=== PATIENT | male | born 1955 | race African-American/Black ===

== ENCOUNTER 2018-11-01 14:05 | Inpatient (IN) | payer MEDICAID, OTHER ==
[~2018-11-01] VITALS: Ht 165.1 cm; Wt 75.9 kg
[2018-11-01] MEDS ORDERED: IPRATROPIUM BROM 0.5 MG/2.5ML INH SOL NEB ONE (14:45)
[2018-11-01] MEDS ORDERED: methylPREDNISolone SOD SUCC 125 MG/2 ML VL IV ONE (14:45)
[2018-11-01] MEDS ORDERED: ALBUTEROL SULF 2.5 MG/0.5ML(0.5%) NEB SOLN NEB ONE (14:45)
[2018-11-01 15:20] LABS: Albumin 3.6 g/dL (3.4-5.0); Anion Gap 3 (5-15); Blood Urea Nitrogen 10 mg/dL (7-18); Calcium 9.3 mg/dL (8.5-10.1); Carbon Dioxide 28 mmol/L (21-32); Chloride 113 mmol/L (98-107); Glucose 84 mg/dL (74-106); Potassium 4.7 mmol/L (3.5-5.1); Sodium 144 mmol/L (136-145)
[2018-11-01 15:21] LABS: Basophils # (auto) 0.1 uL; Basophils % (auto) 0.9 % (0.0-2.0); Eosinophils # (auto) 0.6 uL; Eosinophils % (auto) 7.5 % (0.0-7.0); Hematocrit 50.4 % (41.0-53.0); Hemoglobin 16.6 g/dL (13.5-17.5); Lymphocytes % (auto) 12.4 % (10.0-50.0); Mean Corpuscular Hemoglobin 28.5 pg (28.0-32.0); Mean Corpuscular Volume 86.3 fL (80.0-100.0); Monocytes # (auto) 0.6 uL; Monocytes % (auto) 7.6 % (0.0-12.0); Neutrophils # (auto) 5.7 uL; Neutrophils % (auto) 71.6 % (37.0-80.0); Nucleated Red Blood Cells % 0.1 %; Platelet Count (auto) 234 10^3/uL (140-450); Red Blood Cells 5.84 10^6/uL (4.5-5.90); Red Cell Distribution Width 16.2 % (11.8-14.3); White Blood Cell 7.9 10^3/uL (4.4-10.8)
[2018-11-01 15:25] LABS: Alanine Aminotransferase 24 U/L (16-61); Alkaline Phosphatase 118 U/L (45-117); Aspartate Aminotransferase 14 U/L (15-37); BUN/Creatinine Ratio 8.2; Bilirubin, Total 0.4 mg/dL (0.2-1.0); GFR African American 77 mL/min; GFR Non-African American 64 mL/min; Total Protein 7.5 g/dL (6.4-8.2)
[2018-11-01] MEDS ORDERED: cefTRIAXone 1GM/50ML D5W 50 ML IV ONE (15:30)
[2018-11-01 16:22] LABS: Lactic Acid w/Reflex 2.5 mmol/L (0.4-2.0)
[2018-11-01] MEDS ORDERED: ACETAMINOPHEN 325 MG TAB PO PRN (20:45)
[2018-11-01] MEDS ORDERED: TEMAZEPAM 15 MG CAP PO PRN (20:45)
[2018-11-01] MEDS ORDERED: HYDROcodone-ACET 5/325MG TAB PO PRN (20:45)
[2018-11-01] MEDS ORDERED: ONDANSETRON HCL 4 MG/2 ML VIAL IV PRN (20:45)
[2018-11-01] MEDS: FAMOTIDINE 20 MG TAB PO SCH (22:05)
[2018-11-01 22:18] LABS: Urine Bacteria NONE SEEN /hpf (None Seen); Urine Blood Negative /uL (Negative); Urine Specific Gravity 1.014 (1.001-1.035); Urine WBC <1 /hpf (0 - 3)
[2018-11-01 22:48] VITALS: BP 152/92
--- NOTE | 2018-11-01 22:48 | NUR ---
MS admit from ER [facility] admitted to tele/MS after SBAR received from Spike MUELLER. Patient oriented to Annabella Barraza RN primary RN, unit, room, bed, and unit policies regarding patient care and visiting hours. Patient weighed by bedscale and encouraged to call if they need something. All questions and concerns addressed, patient verbalized understanding. Note: Fall and safety precautions in place. Call light within reach.
--- NOTE | 2018-11-01 23:00 | NUR ---
IV insertion IV access obtained, via clean sterile technique by inserting 22 gauge catheter at left hand after second attempt. IV secured properly. No trauma to site. Patient tolerated well. NOTE: IV inserted by secondary RN IV removal IV DC'd with clean sterile technique, catheter fully intact. Pressure dressing applied to site. Patient tolerated well. NOTE: right hand 22g removed due to leaking
--- NOTE | 2018-11-01 23:05 | NUR ---
RT PAGED RT paged for breathing treatment
[2018-11-01] MEDS: ALBUTEROL SULF 2.5 MG/0.5ML(0.5%) NEB SOLN NEB SCH (23:28)
[2018-11-01] MEDS: IPRATROPIUM BROM 0.5 MG/2.5ML INH SOL NEB SCH (23:28)
[2018-11-02] MEDS ORDERED: PNEUMOCOCCAL VACC POLYS 25 MCG/0.5 ML VIAL IM ONE (01:45)
[2018-11-02 03:38] VITALS: BP 159/92
[2018-11-02 05:00] VITALS: BP 151/88
[2018-11-02 05:58] LABS: Basophils # (auto) 0 uL; Basophils % (auto) 0.2 % (0.0-2.0); Eosinophils # (auto) 0 uL; Eosinophils % (auto) 0.1 % (0.0-7.0); Hematocrit 50.8 % (41.0-53.0); Hemoglobin 16.6 g/dL (13.5-17.5); Lymphocytes # (auto) 0.9 uL; Lymphocytes % (auto) 8.4 % (10.0-50.0); Mean Corpuscular Hemoglobin 28.3 pg (28.0-32.0); Mean Corpuscular Hgb Conc. 32.6 g/dL (32.0-36.0); Mean Corpuscular Volume 86.9 fL (80.0-100.0); Monocytes # (auto) 0.2 uL; Monocytes % (auto) 1.6 % (0.0-12.0); Neutrophils # (auto) 9.5 uL; Neutrophils % (auto) 89.7 % (37.0-80.0); Nucleated Red Blood Cells % 0.3 %; Platelet Count (auto) 241 10^3/uL (140-450); Red Blood Cells 5.85 10^6/uL (4.5-5.90); Red Cell Distribution Width 16.3 % (11.8-14.3); White Blood Cell 10.6 10^3/uL (4.4-10.8)
[2018-11-02] MEDS: ALBUTEROL SULF 2.5 MG/0.5ML(0.5%) NEB SOLN NEB SCH ×4 (06:00→22:40)
[2018-11-02] MEDS: IPRATROPIUM BROM 0.5 MG/2.5ML INH SOL NEB SCH ×4 (06:00→22:40)
[2018-11-02 06:12] LABS: Calcium 8.8 mg/dL (8.5-10.1); Potassium 4.4 mmol/L (3.5-5.1)
[2018-11-02 06:14] LABS: BUN/Creatinine Ratio 11.3
[2018-11-02 09:00] VITALS: BP 149/88
[2018-11-02] MEDS ORDERED: LEVOFLOXACIN 500MG 100 ML IV SCH (10:00)
[2018-11-02] MEDS: FAMOTIDINE 20 MG TAB PO SCH ×2 (10:31→21:03)
[2018-11-02] MEDS: amLODIPine BESYLATE 5 MG TAB PO SCH (10:52)
[2018-11-02 13:00] VITALS: BP 141/77
[2018-11-02] MEDS ORDERED: cloNIDine HCL 0.1 MG TAB PO PRN (13:00)
[2018-11-02] MEDS ORDERED: AMLO5TAB15 PO (15:59)
[2018-11-02] MEDS ORDERED: OME20T PO (15:59)
[2018-11-02 17:00] VITALS: BP 157/97
--- NOTE | 2018-11-02 19:45 | NUR ---
Opening Shift Note Assumed care of patient, awake and alert x4. Patient denies pain at this time. Patient is complaining of shortness of breath at this time, oxygen saturation is 95% on 2L NC. RT paged for breathing treatment. Instructed on plan of care and to call for assistance as needed. Bed is locked in lowest position, side rails x 2 are up, call light is within reach, and bed alarm is on.
--- NOTE | 2018-11-02 19:48 | NUR ---
RT AT BEDSIDE RT at bedside administrating breathing treatment.
[2018-11-02 22:00] VITALS: BP 144/85
--- NOTE | 2018-11-02 22:38 | NUR ---
RT NOTE PT WAS SEEN BY RT FOR HHN TX. PT TOLERATES WELL VIA MASK. CONT ORDERED Addendum: 11/02/18 at 2346 by Avril Ramirez RT Amended: Links added.
--- NOTE | 2018-11-03 01:30 | NUR ---
Patient complaining of shortness of breath Patient reports that upon ambulating from the bathroom and back into bed he is feeling short of breath. Patient is on 2L NC, oxygen saturation is 98%. Lung sounds upon auscultation are clear upon inspiration and wheezing noted upon expiration. Educated patient to use urinal to prevent shortness of breath, patient verbalized understanding.
--- NOTE | 2018-11-03 01:31 | NUR ---
HOSPITALIST PAGED RE: BREATHING TREATMENT Hospitalist paged regarding breathing treatment. Patient is complaining of shortness of breath and does not have PRN breathing treatments. Awaiting call back.
--- NOTE | 2018-11-03 01:49 | NUR ---
REASSESSMENT Patient reports his shortness of breath is slightly subsiding. Patient is on 2L NC, oxygen saturation is 98%. Patient is laying in bed with head of the bed greater than 30 degrees. Bed is locked in lowest position, side rails x 2 are up, call light is within reach, and bed alarm is on.
--- NOTE | 2018-11-03 02:10 | NUR ---
MEDICAL RECORDS Form requesting medical records from [facility], as ordered by , faxed and placed in hard chart. Addendum: 11/03/18 at 0448 by NORBERTO HENNESSY RN RN Was notified by community facilitator that fax did not go through.
--- NOTE | 2018-11-03 02:20 | NUR ---
ORDERS FOR SHORTNESS OF BREATH TRANSITION SOCIAL WORKER Angelo Hodge placed order for Ventolin med nebulizer every 6 hours as needed for shortness of breath. Will carry out order as received.
--- NOTE | 2018-11-03 02:25 | NUR ---
ROUNDS Patient laying in bed, eyes closed, symmetrical chest rise and fall noted. Patient is on 2L NC. No S/S of distress/shortness of breath noted at this time. Bed is locked in lowest position, side rails x 2 are up, call light is within reach, and bed alarm is on.
[2018-11-03] MEDS ORDERED: ALBUTEROL SULF 2.5 MG/0.5ML(0.5%) NEB SOLN NEB PRN (02:30)
--- NOTE | 2018-11-03 03:45 | NUR ---
RT PAGED RT paged for PRN breathing treatment. Patient complaining of shortness of breath.
--- NOTE | 2018-11-03 04:05 | NUR ---
RT AT BEDSIDE RT at bedside administrating PRN breathing treatment.
[2018-11-03 05:24] VITALS: BP 138/87
[2018-11-03 06:09] LABS: Basophils # (auto) 0 uL; Basophils % (auto) 0.3 % (0.0-2.0); Eosinophils # (auto) 0.2 uL; Hematocrit 49.5 % (41.0-53.0); Hemoglobin 16.1 g/dL (13.5-17.5); Lymphocytes # (auto) 1.7 uL; Mean Corpuscular Hemoglobin 28.3 pg (28.0-32.0); Mean Corpuscular Hgb Conc. 32.5 g/dL (32.0-36.0); Mean Corpuscular Volume 87.1 fL (80.0-100.0); Monocytes # (auto) 0.9 uL; Monocytes % (auto) 8.2 % (0.0-12.0); Neutrophils # (auto) 7.6 uL; Neutrophils % (auto) 73.5 % (37.0-80.0); Nucleated Red Blood Cells % 0.1 %; Platelet Count (auto) 225 10^3/uL (140-450); Red Blood Cells 5.68 10^6/uL (4.5-5.90); Red Cell Distribution Width 16.6 % (11.8-14.3); White Blood Cell 10.4 10^3/uL (4.4-10.8)
[2018-11-03] MEDS: ALBUTEROL SULF 2.5 MG/0.5ML(0.5%) NEB SOLN NEB SCH ×5 (06:18→22:32)
[2018-11-03] MEDS: IPRATROPIUM BROM 0.5 MG/2.5ML INH SOL NEB SCH ×5 (06:18→22:31)
[2018-11-03 06:23] LABS: Calcium 8.8 mg/dL (8.5-10.1); Potassium 4.2 mmol/L (3.5-5.1)
[2018-11-03 06:29] LABS: Albumin 3.2 g/dL (3.4-5.0); BUN/Creatinine Ratio 14.9; Bilirubin, Total 0.3 mg/dL (0.2-1.0); Total Protein 6.7 g/dL (6.4-8.2)
--- NOTE | 2018-11-03 07:55 | NUR ---
On O2 at 2 LPM.
--- NOTE | 2018-11-03 07:55 | NUR ---
Patient in bed, awake, oriented x4, no acute distress noted, legally blind. Needs to obtain medical records from [facility] as ordered.
[2018-11-03 09:09] VITALS: BP 146/90
--- NOTE | 2018-11-03 10:22 | NUR ---
Called [facility] (P# [phone]) Medical Records. Spoke with Ladan. Ladan said send the request to obtain medical records to .
--- NOTE | 2018-11-03 10:25 | NUR ---
Request to obtain medical records sent to [facility] via .
[2018-11-03] MEDS: LEVOFLOXACIN 500 MG TAB PO SCH (11:36)
[2018-11-03] MEDS: FAMOTIDINE 20 MG TAB PO SCH ×2 (11:38→21:09)
[2018-11-03] MEDS: amLODIPine BESYLATE 5 MG TAB PO SCH (11:38)
--- NOTE | 2018-11-03 12:45 | NUR ---
Medical report for blood works from [facility] received via Fax, no medical report regarding Lobectomy. Medical report placed in the patient's chart.
[2018-11-03 12:47] VITALS: BP 140/85
[2018-11-03 16:20] VITALS: BP 137/84
--- NOTE | 2018-11-03 17:40 | NUR ---
Patient is ambulatory, went to the bathroom.
--- NOTE | 2018-11-03 17:50 | NUR ---
Dr. Pineda came over. made aware the [facility] only sent the Laboratory report. ordered to follow up on the Lobectomy report.
--- NOTE | 2018-11-03 18:05 | NUR ---
Paged the RT for patient's breathing treatment.
--- NOTE | 2018-11-03 18:10 | NUR ---
Request to obtain medical report on Lobectomy related to Lung Cancer sent again via Fax to [facility].
--- NOTE | 2018-11-03 18:14 | NUR ---
Patient had breathing treatment done.
--- NOTE | 2018-11-03 20:09 | NUR ---
Opening Shift Note Assumed care of patient, awake and alert. No S/S of distress/SOB or pain. Instructed on POC and to call for assist PRN, will continue to monitor for changes Q1hr and PRN.
[2018-11-03 22:00] VITALS: BP 130/79
[2018-11-03] MEDS: methylPREDNISolone SOD SUCC 40 MG/ML VL IV SCH (23:56)
[2018-11-04 05:00] VITALS: BP 143/86
[2018-11-04] MEDS: methylPREDNISolone SOD SUCC 40 MG/ML VL IV SCH ×4 (05:11→23:13)
--- NOTE | 2018-11-04 07:20 | NUR ---
Report given to David Darnell, patient is resting no respiratory distress.
[2018-11-04] MEDS: ALBUTEROL SULF 2.5 MG/0.5ML(0.5%) NEB SOLN NEB SCH ×5 (07:26→22:03)
[2018-11-04] MEDS: IPRATROPIUM BROM 0.5 MG/2.5ML INH SOL NEB SCH ×5 (07:26→22:03)
--- NOTE | 2018-11-04 07:40 | NUR ---
Patient in bed, awake, no acute distress noted. On O2 at 2 LPM.
[2018-11-04 09:00] VITALS: BP 144/91
--- NOTE | 2018-11-04 10:15 | NUR ---
Patient in bed, no acute distress noted. No complaints of pain.
[2018-11-04] MEDS: LEVOFLOXACIN 500 MG TAB PO SCH (10:18)
[2018-11-04] MEDS: FAMOTIDINE 20 MG TAB PO SCH ×2 (10:18→21:22)
[2018-11-04] MEDS: amLODIPine BESYLATE 5 MG TAB PO SCH (10:18)
[2018-11-04 13:00] VITALS: BP 145/93
[2018-11-04 17:00] VITALS: BP 137/87
--- NOTE | 2018-11-04 18:30 | NUR ---
Medical records from [facility] received via Fax. Placed in the patient's chart.
[2018-11-04] MEDS: BUDESONIDE (INHALATION) 0.5 MG/2 ML NEB NEB SCH (19:18)
--- NOTE | 2018-11-04 20:01 | NUR ---
Opening Shift Note Assumed care of patient, awake and alert. No S/S of distress/SOB or pain. Instructed on POC and to call for assist PRN, will continue to monitor for changes Q1hr and PRN.Patient said he felt getting better .
[2018-11-04 21:44] VITALS: BP 131/86
[2018-11-04 22:11] VITALS: BP 131/86
[2018-11-05] VITALS (7 sets, daily range): BP systolic 118–148; BP diastolic 72–86
--- NOTE | 2018-11-05 05:00 | NUR ---
IV insertion IV access obtained, via clean sterile technique by inserting 22gauge catheter at right hand after attempt. IV secured properly. No trauma to site. Patient tolerated well.
--- NOTE | 2018-11-05 05:00 | NUR ---
IV removal IV DC'd with sterile technique, catheter fully intact. Pressure dressing applied to site. Patient tolerated procedure well. NOTE: 3rd. day of the i.v.line.
[2018-11-05] MEDS: methylPREDNISolone SOD SUCC 40 MG/ML VL IV SCH ×2 (05:30→12:37)
[2018-11-05] MEDS: IPRATROPIUM BROM 0.5 MG/2.5ML INH SOL NEB SCH ×5 (06:15→22:20)
[2018-11-05] MEDS: ALBUTEROL SULF 2.5 MG/0.5ML(0.5%) NEB SOLN NEB SCH ×5 (06:15→22:20)
[2018-11-05] MEDS: BUDESONIDE (INHALATION) 0.5 MG/2 ML NEB NEB SCH ×2 (06:15→18:40)
--- NOTE | 2018-11-05 07:33 | NUR ---
Report given to David Darnell, patient is resting, no discomfort.
--- NOTE | 2018-11-05 07:50 | NUR ---
Patient in bed, awake, oriented x4, on O2 at 2 LPM. Periods that patient is removing his O2 via nasal cannula. Patient denies difficulty breathing.
[2018-11-05] MEDS: FAMOTIDINE 20 MG TAB PO SCH ×2 (09:39→21:39)
[2018-11-05] MEDS: LEVOFLOXACIN 500 MG TAB PO SCH ×2 (09:39→11:16)
[2018-11-05] MEDS: amLODIPine BESYLATE 5 MG TAB PO SCH (09:40)
--- NOTE | 2018-11-05 13:10 | NUR ---
Dr. Pineda made aware that [facility] sent another set of medical records via Fax but no report on Lobectomy/Lung CA.
--- NOTE | 2018-11-05 14:36 | NUR ---
Nutrition Assessment Notes please see attached link for complete assessment Est. Needs based on BW (74 kg): 8979-2009 kcal (23-25 kcal/kgBW), 74-81 gms pro (1.0-1.1 gms/kgBW). Will continue to monitor pertinent labs and reassess nutrient need prn Addendum: 11/05/18 at [address] Amended: Links added.
--- NOTE | 2018-11-05 20:05 | NUR ---
Opening Shift Note Assumed care of patient, awake and alert x4, sitting in bed in semi fowlers position. No S/S of distress/SOB on 2L NC or pain. Instructed on POC and to call for assistance PRN, will continue to monitor for changes Q1hr and PRN. Instructed o2 will be checked for o2 saturation on room air. Call light within reach, will be back to assess
--- NOTE | 2018-11-05 20:42 | NUR ---
02 Assessment Pt on room air for 30 mins, o2 94%, no sob or distress noted, patient resting comfortably, respirations even and unlabored.
--- NOTE | 2018-11-06 00:40 | NUR ---
Rounds Patient sleeping respirations even and unlabored on room air. No S/S of distress/SOB or pain. Will continue to monitor changes q1hr and PRN
[2018-11-06 04:46] VITALS: BP 125/60
[2018-11-06] MEDS: IPRATROPIUM BROM 0.5 MG/2.5ML INH SOL NEB SCH ×4 (07:12→18:00)
[2018-11-06] MEDS: ALBUTEROL SULF 2.5 MG/0.5ML(0.5%) NEB SOLN NEB SCH ×4 (07:12→18:00)
[2018-11-06 09:00] VITALS: BP 124/72
[2018-11-06] MEDS: LEVOFLOXACIN 500 MG TAB PO SCH (09:52)
[2018-11-06] MEDS: amLODIPine BESYLATE 5 MG TAB PO SCH (09:52)
[2018-11-06] MEDS: FAMOTIDINE 20 MG TAB PO SCH (09:52)
--- NOTE | 2018-11-06 09:55 | NUR ---
Patient sitting in chair, to get breathing treatment. RT at bedside.
[2018-11-06] MEDS: BUDESONIDE (INHALATION) 0.5 MG/2 ML NEB NEB SCH (09:57)
[2018-11-06] MEDS ORDERED: predniSONE 20 MG TAB PO SCH (10:00)
--- NOTE | 2018-11-06 11:50 | NUR ---
Patient sitting in bed, awake, on room air, no acute distress noted. Patient waiting for his lunch tray.
[2018-11-06 13:00] VITALS: BP 144/75
[2018-11-06 15:17] VITALS: BP 124/72
--- NOTE | 2018-11-06 15:25 | NUR ---
Patient requested to call his sister Erika to pick him up.
--- NOTE | 2018-11-06 15:26 | NUR ---
Informed the patient to wait for his discharge papers. Patient's belonging bag given to patient as he requested. Removed the IV line on the right hand, IV catheter intact, pressure dressing applied.
--- NOTE | 2018-11-06 15:30 | NUR ---
Called patient's sister Erika ([phone]) that patient is for discharge home today. Erika said she will picker packer the patient today.
--- NOTE | 2018-11-06 15:50 | NUR ---
Patient not in the room. [facility], went to Main Lobby, patient not found.
--- NOTE | 2018-11-06 16:08 | NUR ---
Called patient's sister Erika. Phone with voicemail not set up yet, unable to speak with patient's sister.
--- NOTE | 2018-11-06 16:09 | NUR ---
Patient left without signing and taking his discharge papers and prescription. Will inform Charge Nurse Cyndi.
--- NOTE | 2018-11-06 16:09 | NUR ---
Patient has no IV line when he left.
--- NOTE | 2018-11-06 16:15 | NUR ---
Informed Dr. Pineda that patient left without signing the discharge papers, without taking his discharge papers and prescription. Charge Nurse Cyndi made aware.
--- NOTE | 2018-11-06 16:20 | NUR ---
Family member called, made aware that patient left without signing his discharge papers and taking his discharge papers and prescription. Informed the family member that I will check the patient again if he goes back to the room, call put on hold. Patient not in the room. Family member hung up the phone already.
[2018-11-06 17:00] VITALS: BP 132/82
== END 2018-11-06 15:50 | disposition home or self-care (01) | DRG 720 ==
LOC: ER 14:19 → OVERFLOW 14:20 → WEST WING 23:05
PROVIDERS: ADMIT Nurse Practitioner; ATTEND Internal Medicine Pulmonary Disease
DX: A41.9 Sepsis, unspecified organism (principal); J96.20 Acute and chronic respiratory failure, unspecified whether with hypoxia or hypercapnia; J18.9 Pneumonia, unspecified organism; J44.0 Chronic obstructive pulmonary disease with (acute) lower respiratory infection; J45.901 Unspecified asthma with (acute) exacerbation; J44.1 Chronic obstructive pulmonary disease with (acute) exacerbation; J84.10 Pulmonary fibrosis, unspecified; J20.9 Acute bronchitis, unspecified; J98.11 Atelectasis; I12.9 Hypertensive chronic kidney disease with stage 1 through stage 4 chronic kidney disease, or unspecified chronic kidney disease; N18.2 Chronic kidney disease, stage 2 (mild); F17.210 Nicotine dependence, cigarettes, uncomplicated; Z85.118 Personal history of other malignant neoplasm of bronchus and lung; Z90.2 Acquired absence of lung [part of]
CPT/HCPCS: 36415; 71046; 71250; 80048; 80053; 81001; 83605; 83735; 83880; 84484; 85025; 87040; 87070; 87205; 93005; 94640; 94761; 96365; 96375; G0378; J0696; J1956

== ENCOUNTER 2019-01-25 00:12 | Emergency (ER) | payer MEDICAID ==
[~2019-01-25] VITALS: Ht 165.1 cm; Wt 83.5 kg
[~2019-01-25 00:12] MED LIST: AMLO5TAB15 PO; OME20T PO
[2019-01-25] MEDS ORDERED: ALBUTEROL SULF 2.5 MG/0.5ML(0.5%) NEB SOLN HHN STA (00:20)
[2019-01-25] MEDS ORDERED: IPRATROPIUM BROM 0.5 MG/2.5ML INH SOL NEB ONE (00:30)
[2019-01-25] MEDS ORDERED: methylPREDNISolone SOD SUCC 125 MG/2 ML VL IV ONE (00:30)
[2019-01-25 00:52] LABS: Basophils # (auto) 0.2 uL; Basophils % (auto) 1.4 % (0.0-2.0); Eosinophils # (auto) 0.6 uL; Eosinophils % (auto) 5.6 % (0.0-7.0); Hemoglobin 17.2 g/dL (13.5-17.5); Lymphocytes # (auto) 2.3 uL; Lymphocytes % (auto) 21.8 % (10.0-50.0); Mean Corpuscular Hemoglobin 28.6 pg (28.0-32.0); Mean Corpuscular Hgb Conc. 33.1 g/dL (32.0-36.0); Mean Corpuscular Volume 86.2 fL (80.0-100.0); Monocytes # (auto) 0.8 uL; Monocytes % (auto) 7.8 % (0.0-12.0); Neutrophils # (auto) 6.8 uL; Neutrophils % (auto) 63.4 % (37.0-80.0); Nucleated Red Blood Cells % 0.5 %; Platelet Count (auto) 222 10^3/uL (140-450); Red Blood Cells 6.03 10^6/uL (4.5-5.90); Red Cell Distribution Width 15.8 % (11.8-14.3); White Blood Cell 10.7 10^3/uL (4.4-10.8)
[2019-01-25 01:10] LABS: Albumin 3.7 g/dL (3.4-5.0); BUN/Creatinine Ratio 8.7; Calcium 8.9 mg/dL (8.5-10.1); Potassium 4.7 mmol/L (3.5-5.1)
[2019-01-25 01:12] LABS: Bilirubin, Total 0.5 mg/dL (0.2-1.0); Total Protein 7.8 g/dL (6.4-8.2)
[2019-01-25] MEDS ORDERED: cefTRIAXone 1GM/50ML D5W 50 ML IV ONE (02:15)
[2019-01-25] MEDS ORDERED: AZITHROMYCIN 500MG/ 250ML 250 ML IV ONE (02:15)
[2019-01-25 03:20] VITALS: BP 133/85
== END 2019-01-25 03:21 | disposition home or self-care (01) ==
LOC: ER 00:15
DX: J45.909 Unspecified asthma, uncomplicated (principal); I10 Essential (primary) hypertension; F17.210 Nicotine dependence, cigarettes, uncomplicated
CPT/HCPCS: 36415; 71045; 80053; 85025; 96365; 96368; 96375; 99284; J0456; J0696; J2930; J7611; J7644

== ENCOUNTER 2019-02-25 14:02 | Emergency (ER) | payer MEDICAID ==
[~2019-02-25] VITALS: Ht 165.1 cm; Wt 83.5 kg
[2019-02-25] MEDS ORDERED: IPRATROPIUM BROM 0.5 MG/2.5ML INH SOL NEB ONE ×2 (14:15→15:00)
[2019-02-25] MEDS ORDERED: ALBUTEROL SULF 2.5 MG/0.5ML(0.5%) NEB SOLN NEB ONE ×2 (14:15→15:00)
[2019-02-25] MEDS ORDERED: SODIUM CHLORIDE 0.9% 1,000 ML IV ONE (14:48)
[2019-02-25] MEDS ORDERED: AZITHROMYCIN 500MG/ 250ML 250 ML IV ONE (15:00)
[2019-02-25] MEDS ORDERED: methylPREDNISolone SOD SUCC 125 MG/2 ML VL IV ONE (15:00)
[2019-02-25 15:30] LABS: Basophils # (auto) 0.1 uL; Basophils % (auto) 0.7 % (0.0-2.0); Eosinophils # (auto) 0.6 uL; Mean Corpuscular Hgb Conc. 33.4 g/dL (32.0-36.0); Monocytes # (auto) 0.7 uL
[2019-02-25 15:32] LABS: Eosinophils % (auto) 6.5 % (0.0-7.0); Hematocrit 52.8 % (41.0-53.0); Hemoglobin 17.6 g/dL (13.5-17.5); Lymphocytes # (auto) 1.3 uL; Lymphocytes % (auto) 14.4 % (10.0-50.0); Mean Corpuscular Hemoglobin 28.6 pg (28.0-32.0); Mean Corpuscular Volume 85.6 fL (80.0-100.0); Monocytes % (auto) 8.1 % (0.0-12.0); Neutrophils # (auto) 6.2 uL; Neutrophils % (auto) 70.3 % (37.0-80.0); Nucleated Red Blood Cells % 0.6 %; Platelet Count (auto) 218 10^3/uL (140-450); Red Blood Cells 6.17 10^6/uL (4.5-5.90); Red Cell Distribution Width 15.9 % (11.8-14.3); White Blood Cell 8.8 10^3/uL (4.4-10.8)
[2019-02-25 16:00] VITALS: BP 149/87
[2019-02-25 16:23] LABS: Albumin 3.9 g/dL (3.4-5.0); Anion Gap 6 (5-15); Blood Urea Nitrogen 11 mg/dL (7-18); Calcium 9.7 mg/dL (8.5-10.1); Carbon Dioxide 27 mmol/L (21-32); Chloride 112 mmol/L (98-107); Glucose 72 mg/dL (74-106); Potassium 4.8 mmol/L (3.5-5.1); Sodium 145 mmol/L (136-145)
[2019-02-25 16:27] LABS: Alanine Aminotransferase 37 U/L (16-61); Alkaline Phosphatase 140 U/L (45-117); Aspartate Aminotransferase 17 U/L (15-37); BUN/Creatinine Ratio 8.1; Bilirubin, Total 0.4 mg/dL (0.2-1.0); GFR African American 69 mL/min; GFR Non-African American 57 mL/min; Total Protein 8.2 g/dL (6.4-8.2)
[2019-03-07] MEDS ORDERED: LISI10TA6 PO (00:09)
== END 2019-02-25 17:40 | disposition home or self-care (01) ==
LOC: ER 14:06
DX: J45.901 Unspecified asthma with (acute) exacerbation (principal); J84.10 Pulmonary fibrosis, unspecified; I12.9 Hypertensive chronic kidney disease with stage 1 through stage 4 chronic kidney disease, or unspecified chronic kidney disease; N18.2 Chronic kidney disease, stage 2 (mild); J44.9 Chronic obstructive pulmonary disease, unspecified; F17.210 Nicotine dependence, cigarettes, uncomplicated; K21.9 Gastro-esophageal reflux disease without esophagitis
CPT/HCPCS: 36415; 71046; 80053; 83735; 83880; 84443; 84484; 85025; 85379; 93005; 94640; 96365; 96366; 96375; 99284; J0456; J2930; J7030; J7611; J7644

== ENCOUNTER 2019-03-30 05:25 | Emergency (ER) | payer MEDICAID ==
[~2019-03-30] VITALS: Ht 165.1 cm; Wt 83.9 kg
[~2019-03-30 05:25] MED LIST changes: +LEVO750T2 PO; +NIC21P TOP
[2019-03-30] MEDS ORDERED: methylPREDNISolone SOD SUCC 125 MG/2 ML VL IV ONE (06:00)
[2019-03-30] MEDS ORDERED: ALBUTEROL SULF 2.5 MG/0.5ML(0.5%) NEB SOLN NEB ONE (06:00)
[2019-03-30] MEDS ORDERED: IPRATROPIUM BROM 0.5 MG/2.5ML INH SOL NEB ONE (06:00)
[2019-03-30 06:21] LABS: Basophils # (auto) 0 uL; Basophils % (auto) 0.5 % (0.0-2.0); Eosinophils # (auto) 0.3 uL; Eosinophils % (auto) 3.5 % (0.0-7.0); Hematocrit 52.2 % (41.0-53.0); Hemoglobin 17.2 g/dL (13.5-17.5); Lymphocytes % (auto) 11.4 % (10.0-50.0); Mean Corpuscular Hemoglobin 28.4 pg (28.0-32.0); Mean Corpuscular Hgb Conc. 32.9 g/dL (32.0-36.0); Mean Corpuscular Volume 86.4 fL (80.0-100.0); Monocytes # (auto) 0.6 uL; Monocytes % (auto) 6.7 % (0.0-12.0); Neutrophils # (auto) 6.7 uL; Neutrophils % (auto) 77.9 % (37.0-80.0); Platelet Count (auto) 216 10^3/uL (140-450); Red Blood Cells 6.04 10^6/uL (4.5-5.90); Red Cell Distribution Width 15.6 % (11.8-14.3); White Blood Cell 8.6 10^3/uL (4.4-10.8)
[2019-03-30 06:44] LABS: Chloride 112 mmol/L (98-107); Potassium 3.9 mmol/L (3.5-5.1); Sodium 142 mmol/L (136-145)
[2019-03-30] MEDS ORDERED: cloNIDine HCL 0.1 MG TAB PO ONE (06:45)
[2019-03-30] MEDS ORDERED: cefTRIAXone 1GM/50ML D5W 50 ML IV ONE (06:45)
[2019-03-30 06:53] LABS: Alanine Aminotransferase 49 U/L (16-61); Albumin 3.8 g/dL (3.4-5.0); Alkaline Phosphatase 145 U/L (45-117); Anion Gap 8 (5-15); Aspartate Aminotransferase 25 U/L (15-37); BUN/Creatinine Ratio 9.2; Bilirubin, Total 0.4 mg/dL (0.2-1.0); Blood Urea Nitrogen 11 mg/dL (7-18); Calcium 9.3 mg/dL (8.5-10.1); Carbon Dioxide 22 mmol/L (21-32); GFR African American 79 mL/min; GFR Non-African American 66 mL/min; Glucose 85 mg/dL (74-106); Magnesium 2.3 mg/dL (1.6-2.6); Total Protein 8.1 g/dL (6.4-8.2)
[2019-03-30 07:30] VITALS: BP 123/82
== END 2019-03-30 08:57 | disposition home or self-care (01) ==
LOC: ER 05:25
DX: J44.9 Chronic obstructive pulmonary disease, unspecified (principal); E11.22 Type 2 diabetes mellitus with diabetic chronic kidney disease; I12.9 Hypertensive chronic kidney disease with stage 1 through stage 4 chronic kidney disease, or unspecified chronic kidney disease; N18.2 Chronic kidney disease, stage 2 (mild); E78.5 Hyperlipidemia, unspecified; F17.210 Nicotine dependence, cigarettes, uncomplicated
CPT/HCPCS: 36415; 71045; 80053; 83735; 83880; 84484; 85025; 93005; 94640; 96365; 96375; 99285; J0696; J2930; J7611; J7644

== ENCOUNTER 2019-06-07 03:00 | Emergency (ER) | payer MEDICAID ==
[~2019-06-07] VITALS: Ht 165.1 cm; Wt 83.9 kg
[2019-06-07 03:05] VITALS: BP 199/97
[2019-06-07 03:40] LABS: Basophils # (auto) 0.1 10 ^3/uL (0-0.2); Basophils % (auto) 1.1 % (0.0-2.0); Eosinophils # (auto) 0.5 10 ^3/uL (0-0.8); Eosinophils % (auto) 4.4 % (0.0-7.0); Hematocrit 53.2 % (41.0-53.0); Hemoglobin 17.2 g/dL (13.5-17.5); Lymphocytes # (auto) 1.9 10 ^3/uL (0.4-5.4); Mean Corpuscular Hemoglobin 27.8 pg (28.0-32.0); Mean Corpuscular Hgb Conc. 32.4 g/dL (32.0-36.0); Mean Corpuscular Volume 85.9 fL (80.0-100.0); Monocytes # (auto) 0.8 10 ^3/uL (0-1.3); Neutrophils # (auto) 7.9 10 ^3/uL (1.6-8.6); Neutrophils % (auto) 70.5 % (37.0-80.0); Nucleated Red Blood Cells % 0.2 %; Platelet Count (auto) 278 10^3/uL (140-450); Red Blood Cells 6.19 10^6/uL (4.5-5.90); Red Cell Distribution Width 16.6 % (11.8-14.3); White Blood Cell 11.2 10^3/uL (4.4-10.8)
[2019-06-07] MEDS ORDERED: methylPREDNISolone SOD SUCC 125 MG/2 ML VL IV ONE (04:00)
[2019-06-07] MEDS ORDERED: IPRATROPIUM BROM 0.5 MG/2.5ML INH SOL NEB ONE (04:00)
[2019-06-07] MEDS ORDERED: ALBUTEROL SULF 2.5 MG/0.5ML(0.5%) NEB SOLN NEB ONE (04:00)
[2019-06-07 04:08] LABS: Alanine Aminotransferase 44 U/L (16-61); Albumin 3.8 g/dL (3.4-5.0); Anion Gap 5 (5-15); Aspartate Aminotransferase 34 U/L (15-37); BUN/Creatinine Ratio 6.9; Blood Urea Nitrogen 9 mg/dL (7-18); Calcium 8.7 mg/dL (8.5-10.1); Carbon Dioxide 29 mmol/L (21-32); Chloride 109 mmol/L (98-107); GFR African American 72 mL/min; GFR Non-African American 59 mL/min; Glucose 102 mg/dL (74-106); Potassium 4.3 mmol/L (3.5-5.1); Sodium 143 mmol/L (136-145)
[2019-06-07 04:13] LABS: Alkaline Phosphatase 127 U/L (45-117); Bilirubin, Total 0.3 mg/dL (0.2-1.0); Total Protein 7.8 g/dL (6.4-8.2)
[2019-06-07 05:14] LABS: INR 1.01 (0.9-1.15); Partial Thromboplastin Time 25.4 sec (23.64-32.05)
== END 2019-06-07 05:45 | disposition home or self-care (01) ==
LOC: EDBD 03:00 → ER 03:09
DX: J44.1 Chronic obstructive pulmonary disease with (acute) exacerbation (principal); E11.9 Type 2 diabetes mellitus without complications; E78.5 Hyperlipidemia, unspecified; I10 Essential (primary) hypertension; F17.210 Nicotine dependence, cigarettes, uncomplicated
CPT/HCPCS: 36415; 71045; 80053; 82728; 83605; 83880; 84484; 85025; 85610; 85730; 87040; 87070; 87804; 87880; 93005; 94640; 96374; 99285; J2930; J7644

== ENCOUNTER 2019-06-18 06:23 | Emergency (ER) | payer MEDICAID ==
[~2019-06-18] VITALS: Ht 170.2 cm; Wt 77.1 kg
[2019-06-18] MEDS ORDERED: SODIUM CHLORIDE 0.9% 1,000 ML IV ONE (06:44)
[2019-06-18 07:26] LABS: Basophils # (auto) 0.1 10 ^3/uL (0-0.2); Basophils % (auto) 1.2 % (0.0-2.0); Eosinophils # (auto) 0.5 10 ^3/uL (0-0.8); Eosinophils % (auto) 5.3 % (0.0-7.0); Hematocrit 48.5 % (41.0-53.0); Lymphocytes # (auto) 1.7 10 ^3/uL (0.4-5.4); Lymphocytes % (auto) 17.2 % (10.0-50.0); Mean Corpuscular Hemoglobin 28.3 pg (28.0-32.0); Mean Corpuscular Volume 85.7 fL (80.0-100.0); Monocytes # (auto) 0.8 10 ^3/uL (0-1.3); Monocytes % (auto) 8.1 % (0.0-12.0); Neutrophils # (auto) 6.6 10 ^3/uL (1.6-8.6); Neutrophils % (auto) 68.2 % (37.0-80.0); Platelet Count (auto) 224 10^3/uL (140-450); Red Blood Cells 5.66 10^6/uL (4.5-5.90); Red Cell Distribution Width 16.6 % (11.8-14.3); White Blood Cell 9.7 10^3/uL (4.4-10.8)
[2019-06-18 07:40] LABS: Albumin 3.4 g/dL (3.4-5.0); Anion Gap 5 (5-15); Blood Urea Nitrogen 10 mg/dL (7-18); Calcium 8.3 mg/dL (8.5-10.1); Carbon Dioxide 26 mmol/L (21-32); Chloride 112 mmol/L (98-107); Glucose 98 mg/dL (74-106); Magnesium 2.4 mg/dL (1.6-2.6); Potassium 4.1 mmol/L (3.5-5.1); Sodium 143 mmol/L (136-145)
[2019-06-18 07:41] LABS: INR 1.01 (0.9-1.15); Partial Thromboplastin Time 26.2 sec (23.64-32.05)
[2019-06-18 07:47] LABS: Alanine Aminotransferase 31 U/L (16-61); Alkaline Phosphatase 110 U/L (45-117); Aspartate Aminotransferase 20 U/L (15-37); BUN/Creatinine Ratio 7.8; Bilirubin, Total 0.4 mg/dL (0.2-1.0); GFR African American 73 mL/min; GFR Non-African American 60 mL/min
[2019-06-18 08:25] VITALS: BP 139/74
[2019-06-18] MEDS ORDERED: ALBUTEROL SULF 2.5 MG/0.5ML(0.5%) NEB SOLN NEB ONE (08:30)
[2019-06-18] MEDS ORDERED: IPRATROPIUM BROM 0.5 MG/2.5ML INH SOL NEB ONE (08:30)
== END 2019-06-18 10:32 | disposition home or self-care (01) ==
LOC: ER 06:23 → EDBD 06:23 → ER 10:32
DX: J44.1 Chronic obstructive pulmonary disease with (acute) exacerbation (principal); I10 Essential (primary) hypertension; J90 Pleural effusion, not elsewhere classified; F17.210 Nicotine dependence, cigarettes, uncomplicated; E78.5 Hyperlipidemia, unspecified; Z85.118 Personal history of other malignant neoplasm of bronchus and lung
CPT/HCPCS: 36415; 71046; 80053; 83735; 83880; 84443; 84484; 85025; 85379; 85610; 85730; 93005; 94640; 99285; J7030; J7644

== ENCOUNTER 2019-06-30 21:45 | Emergency (ER) | payer MEDICAID ==
[~2019-06-30] VITALS: Ht 165.1 cm; Wt 83.9 kg
[~2019-06-30 21:45] MED LIST changes: -LEVO750T2 PO; +LEVO750T8 PO
[2019-06-30 22:00] VITALS: BP 157/97
[2019-06-30 22:23] LABS: Basophils # (auto) 0.1 10 ^3/uL (0-0.2); Basophils % (auto) 0.7 % (0.0-2.0); Eosinophils # (auto) 0.8 10 ^3/uL (0-0.8); Eosinophils % (auto) 7.3 % (0.0-7.0); Hematocrit 51.4 % (41.0-53.0); Hemoglobin 16.5 g/dL (13.5-17.5); Lymphocytes # (auto) 1.8 10 ^3/uL (0.4-5.4); Lymphocytes % (auto) 16.1 % (10.0-50.0); Mean Corpuscular Hemoglobin 27.8 pg (28.0-32.0); Mean Corpuscular Hgb Conc. 32.1 g/dL (32.0-36.0); Mean Corpuscular Volume 86.6 fL (80.0-100.0); Monocytes # (auto) 0.8 10 ^3/uL (0-1.3); Monocytes % (auto) 7.3 % (0.0-12.0); Neutrophils # (auto) 7.6 10 ^3/uL (1.6-8.6); Neutrophils % (auto) 68.6 % (37.0-80.0); Nucleated Red Blood Cells % 0.1 %; Platelet Count (auto) 232 10^3/uL (140-450); Red Blood Cells 5.94 10^6/uL (4.5-5.90); Red Cell Distribution Width 16.9 % (11.8-14.3); White Blood Cell 11.1 10^3/uL (4.4-10.8)
[2019-06-30 22:36] LABS: INR 0.98 (0.9-1.15); Partial Thromboplastin Time 25.5 sec (23.64-32.05)
[2019-06-30 22:39] LABS: Albumin 3.5 g/dL (3.4-5.0); Anion Gap 6 (5-15); Blood Urea Nitrogen 11 mg/dL (7-18); Calcium 8.7 mg/dL (8.5-10.1); Carbon Dioxide 26 mmol/L (21-32); Chloride 109 mmol/L (98-107); Glucose 84 mg/dL (74-106); Potassium 4.1 mmol/L (3.5-5.1); Sodium 141 mmol/L (136-145)
[2019-06-30 22:44] LABS: Alanine Aminotransferase 32 U/L (16-61); Alkaline Phosphatase 110 U/L (45-117); Aspartate Aminotransferase 19 U/L (15-37); BUN/Creatinine Ratio 9.5; Bilirubin, Total 0.3 mg/dL (0.2-1.0); GFR African American 82 mL/min; GFR Non-African American 68 mL/min; Total Protein 7.1 g/dL (6.4-8.2)
[2019-06-30] MEDS ORDERED: IPRATROPIUM BROM 0.5 MG/2.5ML INH SOL NEB ONE (22:45)
[2019-06-30] MEDS ORDERED: methylPREDNISolone SOD SUCC 125 MG/2 ML VL IV ONE (22:45)
[2019-06-30] MEDS ORDERED: ALBUTEROL SULF 2.5 MG/0.5ML(0.5%) NEB SOLN NEB ONE (22:45)
== END 2019-07-01 02:48 | disposition home or self-care (01) ==
LOC: ER 21:45 → EDBD 21:45 → ER 07-01 02:48
DX: J44.1 Chronic obstructive pulmonary disease with (acute) exacerbation (principal); J06.9 Acute upper respiratory infection, unspecified
CPT/HCPCS: 36415; 71045; 80053; 84484; 85025; 85610; 85730; 93005; 94640; 96374; 99285; J2930; J7644

== ENCOUNTER 2019-10-02 11:43 | Emergency (ER) | payer MEDICAID ==
[~2019-10-02] VITALS: Ht 165.1 cm; Wt 66.7 kg
[2019-10-02 12:22] LABS: Basophils # (auto) 0.1 10 ^3/uL (0-0.2); Basophils % (auto) 1.4 % (0.0-2.0); Eosinophils # (auto) 0.4 10 ^3/uL (0-0.8); Eosinophils % (auto) 4.4 % (0.0-7.0); Hematocrit 52.7 % (41.0-53.0); Lymphocytes # (auto) 1.6 10 ^3/uL (0.4-5.4); Lymphocytes % (auto) 18.7 % (10.0-50.0); Mean Corpuscular Hemoglobin 28.4 pg (28.0-32.0); Mean Corpuscular Hgb Conc. 32.3 g/dL (32.0-36.0); Mean Corpuscular Volume 87.7 fL (80.0-100.0); Monocytes # (auto) 0.6 10 ^3/uL (0-1.3); Monocytes % (auto) 6.9 % (0.0-12.0); Neutrophils # (auto) 5.9 10 ^3/uL (1.6-8.6); Neutrophils % (auto) 68.6 % (37.0-80.0); Nucleated Red Blood Cells % 0.3 %; Platelet Count (auto) 261 10^3/uL (140-450); Red Cell Distribution Width 16.3 % (11.8-14.3); White Blood Cell 8.6 10^3/uL (4.4-10.8)
[2019-10-02 12:41] LABS: Albumin 3.6 g/dL (3.4-5.0); Anion Gap 3 (5-15); Blood Urea Nitrogen 5 mg/dL (7-18); Calcium 9.1 mg/dL (8.5-10.1); Carbon Dioxide 29 mmol/L (21-32); Chloride 109 mmol/L (98-107); Glucose 83 mg/dL (74-106); Lipase 148 U/L (73-393); Sodium 141 mmol/L (136-145)
[2019-10-02 12:50] LABS: Alanine Aminotransferase 20 U/L (16-61); Alkaline Phosphatase 124 U/L (45-117); Aspartate Aminotransferase 10 U/L (15-37); BUN/Creatinine Ratio 3.8; Bilirubin, Total 0.4 mg/dL (0.2-1.0); GFR African American 70 mL/min; GFR Non-African American 58 mL/min; Total Protein 7.4 g/dL (6.4-8.2)
[2019-10-02 14:41] VITALS: BP 104/72
== END 2019-10-02 14:43 | disposition home or self-care (01) ==
LOC: ER 11:43
DX: J44.9 Chronic obstructive pulmonary disease, unspecified (principal); I10 Essential (primary) hypertension; I25.2 Old myocardial infarction; F17.210 Nicotine dependence, cigarettes, uncomplicated; Z86.73 Personal history of transient ischemic attack (TIA), and cerebral infarction without residual deficits
CPT/HCPCS: 36415; 74176; 80053; 83690; 84484; 85025; 93005

== ENCOUNTER 2020-01-15 08:01 | Emergency (ER) | payer MEDICAID ==
[~2020-01-15] VITALS: Ht 175.3 cm; Wt 83.9 kg
[2020-01-15 11:00] VITALS: BP 132/76
== END 2020-01-15 11:45 | disposition home or self-care (01) ==
LOC: ER 08:01
DX: J45.41 Moderate persistent asthma with (acute) exacerbation (principal); F17.210 Nicotine dependence, cigarettes, uncomplicated; J44.9 Chronic obstructive pulmonary disease, unspecified; I10 Essential (primary) hypertension; I25.2 Old myocardial infarction; Z20.828 Contact with and (suspected) exposure to other viral communicable diseases; Z86.73 Personal history of transient ischemic attack (TIA), and cerebral infarction without residual deficits
CPT/HCPCS: 36415; 71045; 87426; 93005

== ENCOUNTER 2020-02-29 00:09 | Emergency (ER) | payer MEDICAID ==
[~2020-02-29] VITALS: Ht 165.1 cm; Wt 74.4 kg
[2020-02-29 01:52] LABS: Basophils # (auto) 0.1 10 ^3/uL (0-0.2); Basophils % (auto) 0.6 % (0.0-2.0); Eosinophils # (auto) 0.8 10 ^3/uL (0-0.8); Eosinophils % (auto) 5.9 % (0.0-7.0); Hematocrit 49.6 % (41.0-53.0); Hemoglobin 16.3 g/dL (13.5-17.5); Lymphocytes % (auto) 13.8 % (10.0-50.0); Mean Corpuscular Hemoglobin 28.4 pg (28.0-32.0); Mean Corpuscular Hgb Conc. 32.9 g/dL (32.0-36.0); Mean Corpuscular Volume 86.2 fL (80.0-100.0); Monocytes # (auto) 0.7 10 ^3/uL (0-1.3); Monocytes % (auto) 4.9 % (0.0-12.0); Neutrophils # (auto) 10.6 10 ^3/uL (1.6-8.6); Neutrophils % (auto) 74.8 % (37.0-80.0); Platelet Count (auto) 280 10^3/uL (140-450); Red Blood Cells 5.75 10^6/uL (4.5-5.90); Red Cell Distribution Width 15.6 % (11.8-14.3); White Blood Cell 14.1 10^3/uL (4.4-10.8)
[2020-02-29 02:00] VITALS: BP 153/91
[2020-02-29 02:10] LABS: Alanine Aminotransferase 45 U/L (16-61); Albumin 3.6 g/dL (3.4-5.0); Anion Gap 7 (5-15); Aspartate Aminotransferase 21 U/L (15-37); BUN/Creatinine Ratio 7.8; Blood Urea Nitrogen 9 mg/dL (7-18); Calcium 8.3 mg/dL (8.5-10.1); Carbon Dioxide 26 mmol/L (21-32); Chloride 109 mmol/L (98-107); GFR African American 82 mL/min; GFR Non-African American 67 mL/min; Glucose 110 mg/dL (74-106); Potassium 4.2 mmol/L (3.5-5.1); Sodium 142 mmol/L (136-145)
[2020-02-29 02:11] LABS: INR 0.98 (0.9-1.15); Partial Thromboplastin Time 26.7 sec (23.0-31.2)
[2020-02-29 02:15] LABS: Alkaline Phosphatase 114 U/L (45-117); Bilirubin, Total 0.2 mg/dL (0.2-1.0)
== END 2020-02-29 02:19 | disposition home or self-care (01) ==
LOC: EDBD 00:09 → ER 00:11
DX: J45.909 Unspecified asthma, uncomplicated (principal); I10 Essential (primary) hypertension; F17.210 Nicotine dependence, cigarettes, uncomplicated; I25.2 Old myocardial infarction; Z86.73 Personal history of transient ischemic attack (TIA), and cerebral infarction without residual deficits; Z76.0 Encounter for issue of repeat prescription; Z20.822 Contact with and (suspected) exposure to COVID-19
CPT/HCPCS: 36415; 71045; 80053; 83735; 83880; 84484; 85025; 85379; 85610; 85730; 87426; 93005

== ENCOUNTER 2020-03-10 11:03 | Emergency (ER) | payer MEDICAID ==
[~2020-03-10] VITALS: Ht 165.1 cm; Wt 83.9 kg
[~2020-03-10 11:03] MED LIST changes: +AMLO-489 PO; -AMLO5TAB15 PO
[2020-03-10 11:37] VITALS: BP 160/94
== END 2020-03-10 11:52 | disposition home or self-care (01) ==
LOC: EDBD 11:03 → ER 11:03
DX: J45.901 Unspecified asthma with (acute) exacerbation (principal); I10 Essential (primary) hypertension; I25.2 Old myocardial infarction; F17.210 Nicotine dependence, cigarettes, uncomplicated

== ENCOUNTER 2020-03-24 05:03 | Emergency (ER) | payer MEDICAID ==
[~2020-03-24] VITALS: Ht 165.1 cm; Wt 83.5 kg
[2020-03-24 06:15] LABS: Basophils # (auto) 0.1 10 ^3/uL (0-0.2); Basophils % (auto) 0.9 % (0.0-2.0); Eosinophils # (auto) 0.6 10 ^3/uL (0-0.8); Eosinophils % (auto) 7.8 % (0.0-7.0); Hematocrit 48.4 % (41.0-53.0); Hemoglobin 16.4 g/dL (13.5-17.5); Lymphocytes # (auto) 1.5 10 ^3/uL (0.4-5.4); Lymphocytes % (auto) 18.2 % (10.0-50.0); Mean Corpuscular Hgb Conc. 33.8 g/dL (32.0-36.0); Mean Corpuscular Volume 85.8 fL (80.0-100.0); Monocytes # (auto) 0.6 10 ^3/uL (0-1.3); Monocytes % (auto) 6.9 % (0.0-12.0); Neutrophils # (auto) 5.4 10 ^3/uL (1.6-8.6); Neutrophils % (auto) 66.2 % (37.0-80.0); Nucleated Red Blood Cells % 0.2 %; Platelet Count (auto) 244 10^3/uL (140-450); Red Blood Cells 5.64 10^6/uL (4.5-5.90); Red Cell Distribution Width 15.1 % (11.8-14.3); White Blood Cell 8.1 10^3/uL (4.4-10.8)
[2020-03-24 06:23] LABS: Albumin 3.5 g/dL (3.4-5.0); BUN/Creatinine Ratio 7.3; Calcium 8.9 mg/dL (8.5-10.1); INR 0.96 (0.9-1.15); Partial Thromboplastin Time 26.2 sec (23.0-31.2); Potassium 4.3 mmol/L (3.5-5.1)
[2020-03-24 06:25] LABS: Bilirubin, Total 0.2 mg/dL (0.2-1.0)
[2020-03-24 09:34] VITALS: BP 134/82
[2020-03-24] MEDS ORDERED: IPRATROPIUM BROM 0.5 MG/2.5ML INH SOL NEB ONE (10:30)
[2020-03-24] MEDS ORDERED: ALBUTEROL SULF 2.5 MG/0.5ML(0.5%) NEB SOLN NEB ONE (10:30)
[2020-03-24] MEDS ORDERED: methylPREDNISolone SOD SUCC 125 MG/2 ML VL IV ONE (10:30)
== END 2020-03-24 11:28 | disposition home or self-care (01) ==
LOC: ER 05:03 → EDBD 05:03 → EDUNIT# 05:03 → ER 11:28
DX: J45.901 Unspecified asthma with (acute) exacerbation (principal); I10 Essential (primary) hypertension; I25.2 Old myocardial infarction; F17.210 Nicotine dependence, cigarettes, uncomplicated; Z86.73 Personal history of transient ischemic attack (TIA), and cerebral infarction without residual deficits; Z20.822 Contact with and (suspected) exposure to COVID-19
CPT/HCPCS: 36415; 71045; 80053; 85025; 85610; 85730; 87426; 93005; 94640; 96374; 99285; J2930; J7644; U0003

== ENCOUNTER 2020-04-09 01:40 | Emergency (ER) | payer MEDICAID ==
[~2020-04-09] VITALS: Ht 165.1 cm; Wt 74.8 kg
[2020-04-09 02:14] VITALS: BP 159/96
[2020-04-09 02:15] LABS: Basophils # (auto) 0.1 10 ^3/uL (0-0.2); Basophils % (auto) 0.6 % (0.0-2.0); Eosinophils # (auto) 0.6 10 ^3/uL (0-0.8); Eosinophils % (auto) 4.4 % (0.0-7.0); Hematocrit 49.7 % (41.0-53.0); Hemoglobin 16.4 g/dL (13.5-17.5); Lymphocytes # (auto) 1.6 10 ^3/uL (0.4-5.4); Mean Corpuscular Hemoglobin 28.4 pg (28.0-32.0); Mean Corpuscular Volume 85.8 fL (80.0-100.0); Monocytes # (auto) 0.9 10 ^3/uL (0-1.3); Monocytes % (auto) 6.7 % (0.0-12.0); Neutrophils # (auto) 9.6 10 ^3/uL (1.6-8.6); Neutrophils % (auto) 75.3 % (37.0-80.0); Nucleated Red Blood Cells % 0.1 %; Platelet Count (auto) 244 10^3/uL (140-450); Red Blood Cells 5.79 10^6/uL (4.5-5.90); Red Cell Distribution Width 15.8 % (11.8-14.3); White Blood Cell 12.7 10^3/uL (4.4-10.8)
[2020-04-09 02:28] LABS: INR 0.98 (0.9-1.15); Partial Thromboplastin Time 25.6 sec (23.0-31.2)
[2020-04-09 02:34] LABS: Albumin 3.5 g/dL (3.4-5.0); Anion Gap 3 (5-15); Blood Urea Nitrogen 10 mg/dL (7-18); Calcium 8.6 mg/dL (8.5-10.1); Carbon Dioxide 29 mmol/L (21-32); Chloride 111 mmol/L (98-107); Glucose 89 mg/dL (74-106); Magnesium 2.2 mg/dL (1.6-2.6); Potassium 4.7 mmol/L (3.5-5.1); Sodium 143 mmol/L (136-145)
[2020-04-09 02:40] LABS: Alanine Aminotransferase 38 U/L (16-61); Alkaline Phosphatase 124 U/L (45-117); Aspartate Aminotransferase 18 U/L (15-37); BUN/Creatinine Ratio 7.8; Bilirubin, Total 0.3 mg/dL (0.2-1.0); GFR African American 73 mL/min; GFR Non-African American 60 mL/min; Total Protein 7.4 g/dL (6.4-8.2)
== END 2020-04-09 04:07 | disposition home or self-care (01) ==
LOC: EDBD 01:40 → ER 01:42
DX: J45.901 Unspecified asthma with (acute) exacerbation (principal); J84.10 Pulmonary fibrosis, unspecified; J44.9 Chronic obstructive pulmonary disease, unspecified; I10 Essential (primary) hypertension; I25.2 Old myocardial infarction; F17.210 Nicotine dependence, cigarettes, uncomplicated; Z20.822 Contact with and (suspected) exposure to COVID-19; Z86.73 Personal history of transient ischemic attack (TIA), and cerebral infarction without residual deficits
CPT/HCPCS: 36415; 71045; 80053; 83735; 83880; 84484; 85025; 85610; 85730; 87426; 93005

== ENCOUNTER 2020-05-09 02:09 | Inpatient (IN) | payer MEDICAID ==
[~2020-05-09] VITALS: Ht 165.1 cm; Wt 75.9 kg
[2020-05-09] MEDS ORDERED: DexAMETHasone SOD PHOS 10MG/1ML VIAL INJ IV ONE (03:45)
[2020-05-09 03:54] LABS: Basophils # (auto) 0.1 10 ^3/uL (0-0.2); Basophils % (auto) 0.6 % (0.0-2.0); Eosinophils # (auto) 0.7 10 ^3/uL (0-0.8); Eosinophils % (auto) 6.5 % (0.0-7.0); Hematocrit 47.8 % (41.0-53.0); Hemoglobin 15.8 g/dL (13.5-17.5); Lymphocytes # (auto) 1.4 10 ^3/uL (0.4-5.4); Lymphocytes % (auto) 13.5 % (10.0-50.0); Mean Corpuscular Hemoglobin 28.1 pg (28.0-32.0); Mean Corpuscular Volume 85.4 fL (80.0-100.0); Monocytes # (auto) 0.7 10 ^3/uL (0-1.3); Monocytes % (auto) 6.8 % (0.0-12.0); Neutrophils # (auto) 7.6 10 ^3/uL (1.6-8.6); Neutrophils % (auto) 72.6 % (37.0-80.0); Nucleated Red Blood Cells % 0.1 %; Platelet Count (auto) 269 10^3/uL (140-450); Red Blood Cells 5.61 10^6/uL (4.5-5.90); Red Cell Distribution Width 15.4 % (11.8-14.3); White Blood Cell 10.5 10^3/uL (4.4-10.8)
[2020-05-09 04:11] LABS: Albumin 3.4 g/dL (3.4-5.0); Anion Gap 3 (5-15); Calcium 8.6 mg/dL (8.5-10.1); Carbon Dioxide 30 mmol/L (21-32); Chloride 110 mmol/L (98-107); Potassium 4.5 mmol/L (3.5-5.1); Sodium 143 mmol/L (136-145)
[2020-05-09 04:19] LABS: Alanine Aminotransferase 37 U/L (16-61); Alkaline Phosphatase 114 U/L (45-117); Aspartate Aminotransferase 25 U/L (15-37); BUN/Creatinine Ratio 9.6; Bilirubin, Total 0.3 mg/dL (0.2-1.0); Blood Urea Nitrogen 11 mg/dL (7-18); GFR African American 83 mL/min; GFR Non-African American 69 mL/min; Glucose 91 mg/dL (74-106); Magnesium 2.2 mg/dL (1.6-2.6); Total Protein 6.9 g/dL (6.4-8.2)
[2020-05-09 04:21] LABS: INR 0.96 (0.9-1.15); Partial Thromboplastin Time 26.2 sec (23.0-31.2)
[2020-05-09] MEDS ORDERED: MORPHINE SULF INJ 2 MG/ML SYRINGE 1ML IV PRN (06:45)
[2020-05-09] MEDS ORDERED: ACETAMINOPHEN 325 MG TAB PO PRN (06:45)
[2020-05-09] MEDS ORDERED: NITROGLYCERIN 0.4 MG SL TAB SL PRN (06:45)
[2020-05-09] MEDS ORDERED: ONDANSETRON HCL 4 MG/2 ML VIAL IV PRN (06:45)
[2020-05-09 07:45] VITALS: BP 116/69
[2020-05-09] MEDS: levoFLOXacin 500MG 100 ML IV SCH (09:08)
[2020-05-09] MEDS: amLODIPine BESYLATE 5 MG TAB PO SCH (09:08)
[2020-05-09] MEDS: FAMOTIDINE 20 MG TAB PO SCH ×2 (09:10→22:05)
[2020-05-09] MEDS: ENOXAPARIN SOD 40 MG/0.4 ML SYRINGE SC SCH (09:10)
[2020-05-09 12:51] VITALS: BP 139/82
[2020-05-09 16:43] VITALS: BP 133/73
[2020-05-09] MEDS: IPRATROPIUM BROM 0.5 MG/2.5ML INH SOL NEB PRN (19:39)
[2020-05-09] MEDS: ALBUTEROL SULF 2.5 MG/0.5ML(0.5%) NEB SOLN NEB PRN (19:39)
[2020-05-09 20:00] VITALS: BP 127/74
[2020-05-09] MEDS: TEMAZEPAM 15 MG CAP PO PRN (22:05)
[2020-05-09 22:27] VITALS: BP 147/76
[2020-05-10] MEDS: ALBUTEROL SULF 2.5 MG/0.5ML(0.5%) NEB SOLN NEB PRN ×2 (01:26→07:44)
[2020-05-10] MEDS: IPRATROPIUM BROM 0.5 MG/2.5ML INH SOL NEB PRN ×2 (01:26→07:43)
[2020-05-10 05:30] VITALS: BP 123/72
[2020-05-10 07:46] LABS: Basophils # (auto) 0.1 10 ^3/uL (0-0.2); Basophils % (auto) 0.7 % (0.0-2.0); Eosinophils # (auto) 0.2 10 ^3/uL (0-0.8); Hematocrit 46.2 % (41.0-53.0); Hemoglobin 15.3 g/dL (13.5-17.5); Lymphocytes # (auto) 1.7 10 ^3/uL (0.4-5.4); Lymphocytes % (auto) 15.1 % (10.0-50.0); Mean Corpuscular Hemoglobin 28.3 pg (28.0-32.0); Mean Corpuscular Hgb Conc. 33.2 g/dL (32.0-36.0); Mean Corpuscular Volume 85.2 fL (80.0-100.0); Monocytes # (auto) 0.9 10 ^3/uL (0-1.3); Monocytes % (auto) 8.3 % (0.0-12.0); Neutrophils # (auto) 8.1 10 ^3/uL (1.6-8.6); Neutrophils % (auto) 73.9 % (37.0-80.0); Nucleated Red Blood Cells % 0.1 %; Platelet Count (auto) 242 10^3/uL (140-450); Red Blood Cells 5.42 10^6/uL (4.5-5.90); Red Cell Distribution Width 15.4 % (11.8-14.3)
[2020-05-10 08:01] LABS: Calcium 8.9 mg/dL (8.5-10.1); Potassium 3.9 mmol/L (3.5-5.1)
[2020-05-10 09:00] VITALS: BP 118/67
[2020-05-10] MEDS: predniSONE 20 MG TAB PO SCH (10:32)
[2020-05-10] MEDS: ENOXAPARIN SOD 40 MG/0.4 ML SYRINGE SC SCH (10:32)
[2020-05-10] MEDS: FAMOTIDINE 20 MG TAB PO SCH ×2 (10:32→21:40)
[2020-05-10] MEDS: levoFLOXacin 500MG 100 ML IV SCH (10:33)
[2020-05-10] MEDS: amLODIPine BESYLATE 5 MG TAB PO SCH (10:34)
[2020-05-10 13:00] VITALS: BP 130/71
[2020-05-10 17:00] VITALS: BP 117/67
[2020-05-10 22:00] VITALS: BP 141/74
[2020-05-10] MEDS: TEMAZEPAM 15 MG CAP PO PRN (23:22)
[2020-05-11 05:00] VITALS: BP 148/81
[2020-05-11 07:33] LABS: Basophils # (auto) 0.1 10 ^3/uL (0-0.2); Basophils % (auto) 0.6 % (0.0-2.0); Eosinophils # (auto) 0.1 10 ^3/uL (0-0.8); Eosinophils % (auto) 0.9 % (0.0-7.0); Hematocrit 48.2 % (41.0-53.0); Hemoglobin 15.8 g/dL (13.5-17.5); Lymphocytes % (auto) 16.4 % (10.0-50.0); Mean Corpuscular Hemoglobin 28.2 pg (28.0-32.0); Mean Corpuscular Hgb Conc. 32.8 g/dL (32.0-36.0); Mean Corpuscular Volume 85.8 fL (80.0-100.0); Monocytes # (auto) 0.9 10 ^3/uL (0-1.3); Monocytes % (auto) 7.3 % (0.0-12.0); Neutrophils # (auto) 9.1 10 ^3/uL (1.6-8.6); Neutrophils % (auto) 74.8 % (37.0-80.0); Nucleated Red Blood Cells % 0.1 %; Platelet Count (auto) 258 10^3/uL (140-450); Red Blood Cells 5.62 10^6/uL (4.5-5.90); Red Cell Distribution Width 15.5 % (11.8-14.3); White Blood Cell 12.2 10^3/uL (4.4-10.8)
[2020-05-11] MEDS: IPRATROPIUM BROM 0.5 MG/2.5ML INH SOL NEB PRN (07:33)
[2020-05-11] MEDS: ALBUTEROL SULF 2.5 MG/0.5ML(0.5%) NEB SOLN NEB PRN (07:33)
[2020-05-11 07:46] LABS: Calcium 9.2 mg/dL (8.5-10.1); Potassium 4.6 mmol/L (3.5-5.1)
[2020-05-11 07:47] LABS: BUN/Creatinine Ratio 13.6
[2020-05-11 08:40] VITALS: BP 146/83
[2020-05-11] MEDS: predniSONE 20 MG TAB PO SCH (10:32)
[2020-05-11] MEDS: ENOXAPARIN SOD 40 MG/0.4 ML SYRINGE SC SCH (10:32)
[2020-05-11] MEDS: levoFLOXacin 500MG 100 ML IV SCH (10:32)
[2020-05-11] MEDS: FAMOTIDINE 20 MG TAB PO SCH ×2 (10:32→21:40)
[2020-05-11] MEDS: amLODIPine BESYLATE 5 MG TAB PO SCH (10:33)
[2020-05-11 12:15] VITALS: BP 146/88
[2020-05-11 17:07] VITALS: BP 141/87
[2020-05-11 22:00] VITALS: BP 123/58
[2020-05-12 05:00] VITALS: BP 114/70
[2020-05-12 09:20] VITALS: BP 143/73
[2020-05-12] MEDS: levoFLOXacin 500MG 100 ML IV SCH (10:12)
[2020-05-12] MEDS: predniSONE 20 MG TAB PO SCH (10:12)
[2020-05-12] MEDS: amLODIPine BESYLATE 5 MG TAB PO SCH (10:13)
[2020-05-12] MEDS: FAMOTIDINE 20 MG TAB PO SCH ×2 (10:13→21:25)
[2020-05-12] MEDS: ENOXAPARIN SOD 40 MG/0.4 ML SYRINGE SC SCH (10:13)
[2020-05-12 10:30] VITALS: BP 143/71
[2020-05-12 13:00] VITALS: BP 134/74
[2020-05-12 16:56] VITALS: BP 145/80
[2020-05-12 22:00] VITALS: BP 129/77
[2020-05-13 05:00] VITALS: BP 136/69
[2020-05-13 08:54] VITALS: BP 139/81
[2020-05-13] MEDS: levoFLOXacin 500MG 100 ML IV SCH (09:37)
[2020-05-13] MEDS: predniSONE 20 MG TAB PO SCH (09:37)
[2020-05-13] MEDS: amLODIPine BESYLATE 5 MG TAB PO SCH (09:38)
[2020-05-13] MEDS: FAMOTIDINE 20 MG TAB PO SCH (09:38)
[2020-05-13] MEDS: ENOXAPARIN SOD 40 MG/0.4 ML SYRINGE SC SCH (09:39)
[2020-05-13] MEDS ORDERED: AMOX500T86 PO (10:30)
[2020-05-13] MEDS ORDERED: TIOTCAP IN (10:30)
[2020-05-13] MEDS ORDERED: ALBUAER3 IN (10:30)
[2020-05-13] MEDS ORDERED: PRED20TA2 PO (10:30)
[2020-05-13 13:00] VITALS: BP 145/77
== END 2020-05-13 14:25 | disposition home or self-care (01) | DRG 139 ==
LOC: EDBD 02:09 → ER 02:13 → TELE 02:14 → TELE-EAST 10:52 → TELE-CENTR 18:07
PROVIDERS: ADMIT Nurse Practitioner; ATTEND Internal Medicine Pulmonary Disease
DX: J18.9 Pneumonia, unspecified organism (principal); J96.21 Acute and chronic respiratory failure with hypoxia; J44.1 Chronic obstructive pulmonary disease with (acute) exacerbation; J20.9 Acute bronchitis, unspecified; J44.0 Chronic obstructive pulmonary disease with (acute) lower respiratory infection; F17.210 Nicotine dependence, cigarettes, uncomplicated; Z20.822 Contact with and (suspected) exposure to COVID-19; I10 Essential (primary) hypertension; Z80.9 Family history of malignant neoplasm, unspecified; Z82.0 Family history of epilepsy and other diseases of the nervous system; Z85.118 Personal history of other malignant neoplasm of bronchus and lung; Z86.73 Personal history of transient ischemic attack (TIA), and cerebral infarction without residual deficits; Z71.6 Tobacco abuse counseling
CPT/HCPCS: 36415; 71045; 80048; 80053; 83605; 83735; 83880; 84484; 85025; 85379; 85610; 85730; 87426; 93005; 94640; 96365; 96375; G0378; J1100; J1956

== ENCOUNTER 2020-06-13 23:34 | Inpatient (IN) | payer MEDICAID ==
[~2020-06-13] VITALS: Ht 177.8 cm; Wt 72.7 kg
[~2020-06-13 23:34] MED LIST changes: +ALBUAER3 IN; +AMOX500T86 PO; -LEVO750T8 PO; +PRED20TA2 PO; +TIOTCAP IN
[2020-06-14] VITALS (7 sets, daily range): BP systolic 139–156; BP diastolic 74–95
[2020-06-14 00:24] LABS: Basophils # (auto) 0.3 10 ^3/uL (0-0.2); Basophils % (auto) 2.6 % (0.0-2.0); Eosinophils # (auto) 0.4 10 ^3/uL (0-0.8); Eosinophils % (auto) 3.9 % (0.0-7.0); Hematocrit 49.3 % (41.0-53.0); Hemoglobin 16.2 g/dL (13.5-17.5); Lymphocytes % (auto) 19.2 % (10.0-50.0); Mean Corpuscular Hgb Conc. 32.8 g/dL (32.0-36.0); Mean Corpuscular Volume 85.4 fL (80.0-100.0); Monocytes # (auto) 0.8 10 ^3/uL (0-1.3); Monocytes % (auto) 7.8 % (0.0-12.0); Neutrophils # (auto) 6.9 10 ^3/uL (1.6-8.6); Neutrophils % (auto) 66.5 % (37.0-80.0); Nucleated Red Blood Cells % 0.2 %; Platelet Count (auto) 260 10^3/uL (140-450); Red Blood Cells 5.77 10^6/uL (4.5-5.90); Red Cell Distribution Width 15.5 % (11.8-14.3); White Blood Cell 10.3 10^3/uL (4.4-10.8)
[2020-06-14] MEDS ORDERED: SODIUM CHLORIDE 0.9% 500 ML IV ONE (00:30)
[2020-06-14] MEDS ORDERED: levoFLOXacin 500MG 100 ML IV ONE (00:30)
[2020-06-14 00:38] LABS: Alanine Aminotransferase 26 U/L (16-61); Albumin 3.5 g/dL (3.4-5.0); Anion Gap 6 (5-15); Aspartate Aminotransferase 14 U/L (15-37); BUN/Creatinine Ratio 9.3; Blood Urea Nitrogen 12 mg/dL (7-18); Calcium 8.7 mg/dL (8.5-10.1); Carbon Dioxide 27 mmol/L (21-32); Chloride 108 mmol/L (98-107); GFR African American 72 mL/min; GFR Non-African American 60 mL/min; Glucose 98 mg/dL (74-106); Magnesium 2.3 mg/dL (1.6-2.6); Potassium 4.2 mmol/L (3.5-5.1); Sodium 141 mmol/L (136-145)
[2020-06-14 00:43] LABS: Alkaline Phosphatase 125 U/L (45-117); Bilirubin, Total 0.3 mg/dL (0.2-1.0); Total Protein 7.4 g/dL (6.4-8.2)
[2020-06-14 00:47] LABS: INR 0.96 (0.9-1.15); Partial Thromboplastin Time 25.9 sec (23.0-31.2)
[2020-06-14] MEDS ORDERED: IOHEXOL 350 MG/ML 100ML IJ ONE (01:49)
[2020-06-14] MEDS ORDERED: methylPREDNISolone SOD SUCC 125 MG/2 ML VL IV ONE (02:15)
[2020-06-14] MEDS ORDERED: ENOXAPARIN SOD 80 MG/0.8ML SYRINGE SC ONE (03:30)
[2020-06-14] MEDS ORDERED: cloNIDine HCL 0.1 MG TAB PO PRN (04:15)
[2020-06-14] MEDS ORDERED: ONDANSETRON HCL 4 MG/2 ML VIAL IV PRN (04:15)
[2020-06-14] MEDS ORDERED: MORPHINE SULF INJ 2 MG/ML SYRINGE 1ML IV PRN (04:15)
[2020-06-14] MEDS ORDERED: NITROGLYCERIN 0.4 MG SL TAB SL PRN (04:15)
[2020-06-14] MEDS ORDERED: HYDROcodone-ACET 5/325MG TAB PO PRN (04:15)
[2020-06-14] MEDS ORDERED: ACETAMINOPHEN 325 MG TAB PO PRN (04:15)
[2020-06-14 04:19] LABS: Urine WBC None Seen /hpf (0 - 3)
[2020-06-14 04:51] LABS: Urine Bacteria NONE SEEN /hpf (None Seen); Urine Blood Negative /uL (Negative); Urine Specific Gravity 1.022 (1.001-1.035)
[2020-06-14] MEDS: ALBUTEROL SULF 2.5 MG/0.5ML(0.5%) NEB SOLN NEB SCH ×3 (06:37→19:31)
[2020-06-14] MEDS: IPRATROPIUM BROM 0.5 MG/2.5ML INH SOL NEB SCH ×3 (06:37→19:31)
[2020-06-14] MEDS: amLODIPine BESYLATE 5 MG TAB PO SCH (09:43)
[2020-06-14] MEDS: FAMOTIDINE 20 MG TAB PO SCH ×2 (09:44→21:32)
[2020-06-14] MEDS: NICOTINE 21MG/24 HR TOPICAL PATCH TD SCH (09:45)
[2020-06-14] MEDS: methylPREDNISolone SOD SUCC 40 MG/ML VL IV SCH ×2 (09:46→21:32)
[2020-06-14] MEDS ORDERED: ENOXAPARIN SOD 80 MG/0.8ML SYRINGE SC SCH (15:00)
[2020-06-14] MEDS: ENOXAPARIN SOD 80 MG/0.8ML SYRINGE SC SCH (15:12)
[2020-06-15] MEDS: ENOXAPARIN SOD 80 MG/0.8ML SYRINGE SC SCH ×2 (03:49→21:30)
[2020-06-15 05:00] VITALS: BP 161/99
[2020-06-15 05:25] LABS: Basophils # (auto) 0.1 10 ^3/uL (0-0.2); Basophils % (auto) 0.3 % (0.0-2.0); Eosinophils # (auto) 0 10 ^3/uL (0-0.8); Hemoglobin 15.6 g/dL (13.5-17.5); Lymphocytes # (auto) 1.1 10 ^3/uL (0.4-5.4); Lymphocytes % (auto) 6.8 % (10.0-50.0); Mean Corpuscular Hemoglobin 28.3 pg (28.0-32.0); Mean Corpuscular Hgb Conc. 33.3 g/dL (32.0-36.0); Mean Corpuscular Volume 84.9 fL (80.0-100.0); Monocytes # (auto) 0.7 10 ^3/uL (0-1.3); Monocytes % (auto) 4.3 % (0.0-12.0); Neutrophils # (auto) 13.8 10 ^3/uL (1.6-8.6); Neutrophils % (auto) 88.6 % (37.0-80.0); Nucleated Red Blood Cells % 0.2 %; Red Blood Cells 5.53 10^6/uL (4.5-5.90); Red Cell Distribution Width 15.2 % (11.8-14.3); White Blood Cell 15.6 10^3/uL (4.4-10.8)
[2020-06-15 05:45] LABS: INR 1.01 (0.9-1.15); Partial Thromboplastin Time 30.1 sec (23.0-31.2)
[2020-06-15 05:54] LABS: Albumin 2.9 g/dL (3.4-5.0); Calcium 9.2 mg/dL (8.5-10.1); Potassium 4.5 mmol/L (3.5-5.1)
[2020-06-15 05:57] LABS: BUN/Creatinine Ratio 10.7; Bilirubin, Total 0.2 mg/dL (0.2-1.0); Total Protein 6.5 g/dL (6.4-8.2)
[2020-06-15] MEDS: IPRATROPIUM BROM 0.5 MG/2.5ML INH SOL NEB SCH ×3 (06:18→18:24)
[2020-06-15] MEDS: ALBUTEROL SULF 2.5 MG/0.5ML(0.5%) NEB SOLN NEB SCH ×3 (06:18→18:24)
[2020-06-15 07:00] LABS: Platelet Count (auto) 287 10^3/uL (140-450)
[2020-06-15 08:32] VITALS: BP 143/86
[2020-06-15] MEDS: FAMOTIDINE 20 MG TAB PO SCH ×2 (09:19→21:29)
[2020-06-15] MEDS: amLODIPine BESYLATE 5 MG TAB PO SCH (09:19)
[2020-06-15] MEDS: methylPREDNISolone SOD SUCC 40 MG/ML VL IV SCH ×2 (09:20→21:29)
[2020-06-15] MEDS: NICOTINE 21MG/24 HR TOPICAL PATCH TD SCH (09:21)
[2020-06-15 12:32] VITALS: BP_SYST 134; BP_SYST 97; BP_DIAS 64; BP_DIAS 90
[2020-06-15] MEDS ORDERED: ENOXAPARIN SOD 80 MG/0.8ML SYRINGE SC ONE (13:00)
[2020-06-15 16:26] VITALS: BP 136/81
[2020-06-15] MEDS: TEMAZEPAM 15 MG CAP PO PRN (21:29)
[2020-06-15 22:00] VITALS: BP 136/78
[2020-06-16 05:11] VITALS: BP 150/94
[2020-06-16 06:35] LABS: Basophils # (auto) 0 10 ^3/uL (0-0.2); Basophils % (auto) 0.1 % (0.0-2.0); Eosinophils # (auto) 0 10 ^3/uL (0-0.8); Hematocrit 46.5 % (41.0-53.0); Hemoglobin 15.5 g/dL (13.5-17.5); Lymphocytes # (auto) 0.8 10 ^3/uL (0.4-5.4); Lymphocytes % (auto) 4.6 % (10.0-50.0); Mean Corpuscular Hemoglobin 28.5 pg (28.0-32.0); Mean Corpuscular Hgb Conc. 33.4 g/dL (32.0-36.0); Mean Corpuscular Volume 85.4 fL (80.0-100.0); Monocytes # (auto) 0.4 10 ^3/uL (0-1.3); Monocytes % (auto) 2.4 % (0.0-12.0); Neutrophils # (auto) 15.6 10 ^3/uL (1.6-8.6); Neutrophils % (auto) 92.9 % (37.0-80.0); Nucleated Red Blood Cells % 0.1 %; Platelet Count (auto) 286 10^3/uL (140-450); Red Blood Cells 5.44 10^6/uL (4.5-5.90); Red Cell Distribution Width 15.3 % (11.8-14.3); White Blood Cell 16.8 10^3/uL (4.4-10.8)
[2020-06-16] MEDS ORDERED: VANCOMYCIN PER PHARMACY 0 MG IV SCH (06:45)
[2020-06-16] MEDS: IPRATROPIUM BROM 0.5 MG/2.5ML INH SOL NEB SCH ×3 (08:03→18:19)
[2020-06-16] MEDS: ALBUTEROL SULF 2.5 MG/0.5ML(0.5%) NEB SOLN NEB SCH ×3 (08:03→18:19)
[2020-06-16 08:49] VITALS: BP 140/90
[2020-06-16] MEDS: ENOXAPARIN SOD 80 MG/0.8ML SYRINGE SC SCH ×2 (08:58→21:59)
[2020-06-16] MEDS: amLODIPine BESYLATE 5 MG TAB PO SCH (08:58)
[2020-06-16] MEDS: FAMOTIDINE 20 MG TAB PO SCH ×2 (08:59→21:59)
[2020-06-16] MEDS: NICOTINE 21MG/24 HR TOPICAL PATCH TD SCH (08:59)
[2020-06-16] MEDS: methylPREDNISolone SOD SUCC 40 MG/ML VL IV SCH ×2 (08:59→21:59)
[2020-06-16] MEDS: VANCOMYCIN 750mg/250ml 250 ML IV SCH ×2 (10:06→20:16)
[2020-06-16] MEDS ORDERED: cefTRIAXone 1GM/50ML D5W 50 ML IV ONE (11:00)
[2020-06-16 13:00] VITALS: BP 148/90
[2020-06-16 17:00] VITALS: BP 136/86
[2020-06-16 18:19] VITALS: BP 136/86
[2020-06-16 22:00] VITALS: BP 147/87
[2020-06-17 05:00] VITALS: BP 138/86
[2020-06-17 06:04] LABS: Basophils # (auto) 0 10 ^3/uL (0-0.2); Basophils % (auto) 0.1 % (0.0-2.0); Eosinophils # (auto) 0 10 ^3/uL (0-0.8); Hematocrit 45.3 % (41.0-53.0); Lymphocytes # (auto) 1.8 10 ^3/uL (0.4-5.4); Lymphocytes % (auto) 11.1 % (10.0-50.0); Mean Corpuscular Hemoglobin 28.2 pg (28.0-32.0); Mean Corpuscular Volume 85.3 fL (80.0-100.0); Monocytes # (auto) 1.2 10 ^3/uL (0-1.3); Monocytes % (auto) 7.5 % (0.0-12.0); Neutrophils % (auto) 81.3 % (37.0-80.0); Platelet Count (auto) 280 10^3/uL (140-450); Red Blood Cells 5.31 10^6/uL (4.5-5.90); Red Cell Distribution Width 15.3 % (11.8-14.3)
[2020-06-17] MEDS: ALBUTEROL SULF 2.5 MG/0.5ML(0.5%) NEB SOLN NEB SCH ×3 (06:34→18:54)
[2020-06-17] MEDS: IPRATROPIUM BROM 0.5 MG/2.5ML INH SOL NEB SCH ×3 (06:34→18:54)
[2020-06-17 09:00] VITALS: BP 152/97
[2020-06-17] MEDS: VANCOMYCIN 750mg/250ml 250 ML IV SCH (09:21)
[2020-06-17] MEDS: amLODIPine BESYLATE 5 MG TAB PO SCH (09:21)
[2020-06-17] MEDS: methylPREDNISolone SOD SUCC 40 MG/ML VL IV SCH ×2 (09:21→21:14)
[2020-06-17] MEDS: ENOXAPARIN SOD 80 MG/0.8ML SYRINGE SC SCH (09:22)
[2020-06-17] MEDS: FAMOTIDINE 20 MG TAB PO SCH ×2 (09:22→21:14)
[2020-06-17] MEDS: NICOTINE 21MG/24 HR TOPICAL PATCH TD SCH (09:29)
[2020-06-17] MEDS: cefTRIAXone 1GM/50ML D5W 50 ML IV SCH (10:58)
[2020-06-17 13:00] VITALS: BP 143/86
[2020-06-17 17:00] VITALS: BP 135/71
[2020-06-17] MEDS: VANCOMYCIN 1GM/250ML 250 ML IV SCH (21:11)
[2020-06-17] MEDS: APIXABAN 5 MG TAB PO SCH (21:14)
[2020-06-17] MEDS: TEMAZEPAM 15 MG CAP PO PRN (21:14)
[2020-06-17 21:51] VITALS: BP 140/85
[2020-06-18 05:00] VITALS: BP 114/67
[2020-06-18 08:36] VITALS: BP 150/90
[2020-06-18 09:24] LABS: Basophils # (auto) 0.1 10 ^3/uL (0-0.2); Basophils % (auto) 0.3 % (0.0-2.0); Eosinophils # (auto) 0 10 ^3/uL (0-0.8); Eosinophils % (auto) 0.1 % (0.0-7.0); Hematocrit 48.9 % (41.0-53.0); Lymphocytes % (auto) 5.6 % (10.0-50.0); Mean Corpuscular Hemoglobin 27.9 pg (28.0-32.0); Mean Corpuscular Hgb Conc. 32.7 g/dL (32.0-36.0); Mean Corpuscular Volume 85.4 fL (80.0-100.0); Monocytes # (auto) 0.9 10 ^3/uL (0-1.3); Monocytes % (auto) 4.9 % (0.0-12.0); Neutrophils # (auto) 16.1 10 ^3/uL (1.6-8.6); Neutrophils % (auto) 89.1 % (37.0-80.0); Nucleated Red Blood Cells % 0.2 %; Platelet Count (auto) 302 10^3/uL (140-450); Red Blood Cells 5.72 10^6/uL (4.5-5.90); Red Cell Distribution Width 15.7 % (11.8-14.3); White Blood Cell 18.1 10^3/uL (4.4-10.8)
[2020-06-18] MEDS: methylPREDNISolone SOD SUCC 40 MG/ML VL IV SCH (09:39)
[2020-06-18] MEDS: APIXABAN 5 MG TAB PO SCH (09:39)
[2020-06-18] MEDS: cefTRIAXone 1GM/50ML D5W 50 ML IV SCH (09:39)
[2020-06-18] MEDS: amLODIPine BESYLATE 5 MG TAB PO SCH (09:40)
[2020-06-18] MEDS: FAMOTIDINE 20 MG TAB PO SCH (09:40)
[2020-06-18 09:42] LABS: BUN/Creatinine Ratio 16.7; Calcium 9.3 mg/dL (8.5-10.1); Potassium 4.7 mmol/L (3.5-5.1)
[2020-06-18] MEDS: NICOTINE 21MG/24 HR TOPICAL PATCH TD SCH (09:44)
[2020-06-18] MEDS ORDERED: APIXABAN 5 MG TAB PO SCH (10:00)
[2020-06-18] MEDS: IPRATROPIUM BROM 0.5 MG/2.5ML INH SOL NEB SCH ×2 (10:12→12:32)
[2020-06-18] MEDS: ALBUTEROL SULF 2.5 MG/0.5ML(0.5%) NEB SOLN NEB SCH ×2 (10:12→12:30)
[2020-06-18] MEDS: VANCOMYCIN 1GM/250ML 250 ML IV SCH (10:22)
[2020-06-18] MEDS ORDERED: ALBUAER3 IN (11:11)
[2020-06-18] MEDS ORDERED: APIX5TAB PO (11:11)
[2020-06-18] MEDS ORDERED: AZIT500T66 PO (11:11)
[2020-06-18] MEDS ORDERED: PRED20TA2 PO (11:22)
[2020-06-18 11:53] VITALS: BP 143/88
== END 2020-06-18 13:33 | disposition home or self-care (01) | DRG 720 ==
LOC: ER 23:34 → EDBD 23:34 → TELE 06-14 04:10 → TELE-WESTW 06-14 05:32
PROVIDERS: ADMIT Nurse Practitioner; ATTEND Family Medicine
DX: A41.9 Sepsis, unspecified organism (principal); I26.99 Other pulmonary embolism without acute cor pulmonale; J96.21 Acute and chronic respiratory failure with hypoxia; J44.1 Chronic obstructive pulmonary disease with (acute) exacerbation; J20.9 Acute bronchitis, unspecified; N18.2 Chronic kidney disease, stage 2 (mild); I82.402 Acute embolism and thrombosis of unspecified deep veins of left lower extremity; F17.210 Nicotine dependence, cigarettes, uncomplicated; I12.9 Hypertensive chronic kidney disease with stage 1 through stage 4 chronic kidney disease, or unspecified chronic kidney disease; J44.0 Chronic obstructive pulmonary disease with (acute) lower respiratory infection; I25.2 Old myocardial infarction; Z80.9 Family history of malignant neoplasm, unspecified; Z82.0 Family history of epilepsy and other diseases of the nervous system; Z85.118 Personal history of other malignant neoplasm of bronchus and lung; Z86.73 Personal history of transient ischemic attack (TIA), and cerebral infarction without residual deficits; Z20.822 Contact with and (suspected) exposure to COVID-19; Z71.6 Tobacco abuse counseling
CPT/HCPCS: 36415; 71045; 71275; 80048; 80053; 80202; 81001; 82565; 83605; 83735; 83880; 84484; 85025; 85379; 85610; 85730; 87040; 87426; 93005; 93306; 93970; 94640; 96365; 96372; 96375; G0378; J0696; J1956

== ENCOUNTER 2020-08-12 21:04 | Emergency (ER) | payer MEDICAID ==
[~2020-08-12] VITALS: Ht 165.1 cm; Wt 68.0 kg
[~2020-08-12 21:04] MED LIST changes: +APIX5TAB PO; +AZIT500T66 PO
[2020-08-12] MEDS ORDERED: predniSONE 20 MG TAB PO ONE (21:30)
[2020-08-12 22:41] LABS: Basophils # (auto) 0.1 10 ^3/uL (0-0.2); Basophils % (auto) 0.7 % (0.0-2.0); Eosinophils # (auto) 0.6 10 ^3/uL (0-0.8); Hematocrit 49.3 % (41.0-53.0); Hemoglobin 16.6 g/dL (13.5-17.5); Lymphocytes # (auto) 1.5 10 ^3/uL (0.4-5.4); Lymphocytes % (auto) 16.2 % (10.0-50.0); Mean Corpuscular Hemoglobin 28.8 pg (28.0-32.0); Mean Corpuscular Hgb Conc. 33.7 g/dL (32.0-36.0); Mean Corpuscular Volume 85.2 fL (80.0-100.0); Monocytes # (auto) 0.7 10 ^3/uL (0-1.3); Neutrophils # (auto) 6.5 10 ^3/uL (1.6-8.6); Neutrophils % (auto) 70.1 % (37.0-80.0); Nucleated Red Blood Cells % 0.1 %; Red Blood Cells 5.79 10^6/uL (4.5-5.90); Red Cell Distribution Width 16.4 % (11.8-14.3); White Blood Cell 9.3 10^3/uL (4.4-10.8)
[2020-08-12 22:59] LABS: BUN/Creatinine Ratio 6.5; Calcium 9.3 mg/dL (8.5-10.1); Potassium 4.6 mmol/L (3.5-5.1)
[2020-08-13 06:00] VITALS: BP 125/86
== END 2020-08-13 06:43 | disposition home or self-care (01) ==
LOC: EDBD 21:04 → ER 21:08
DX: J44.1 Chronic obstructive pulmonary disease with (acute) exacerbation (principal); F17.210 Nicotine dependence, cigarettes, uncomplicated; I25.2 Old myocardial infarction; I10 Essential (primary) hypertension; Z86.73 Personal history of transient ischemic attack (TIA), and cerebral infarction without residual deficits; Z98.890 Other specified postprocedural states
CPT/HCPCS: 36415; 71045; 80048; 83605; 85025; 85049; 93005; 99285; J7512

== ENCOUNTER 2021-01-12 05:41 | Emergency (ER) | payer MEDICARE, MEDICAID ==
[~2021-01-12] VITALS: Ht 170.2 cm; Wt 81.6 kg
[2021-01-12 06:53] LABS: Basophils # (auto) 0.1 10 ^3/uL (0-0.2); Eosinophils # (auto) 0.7 10 ^3/uL (0-0.8); Eosinophils % (auto) 7.9 % (0.0-7.0); Hematocrit 48.6 % (41.0-53.0); Lymphocytes # (auto) 1.5 10 ^3/uL (0.4-5.4); Lymphocytes % (auto) 15.7 % (10.0-50.0); Mean Corpuscular Hgb Conc. 32.9 g/dL (32.0-36.0); Mean Corpuscular Volume 85.1 fL (80.0-100.0); Monocytes # (auto) 0.7 10 ^3/uL (0-1.3); Neutrophils # (auto) 6.2 10 ^3/uL (1.6-8.6); Neutrophils % (auto) 67.4 % (37.0-80.0); Nucleated Red Blood Cells % 0.2 %; Red Blood Cells 5.71 10^6/uL (4.5-5.90); Red Cell Distribution Width 16.5 % (11.8-14.3); White Blood Cell 9.2 10^3/uL (4.4-10.8)
[2021-01-12 07:09] LABS: Calcium 8.2 mg/dL (8.5-10.1); Potassium 4.1 mmol/L (3.5-5.1)
[2021-01-12 07:14] LABS: BUN/Creatinine Ratio 6.8; Bilirubin, Total 0.3 mg/dL (0.2-1.0); Total Protein 6.6 g/dL (6.4-8.2)
[2021-01-12 09:00] VITALS: BP 132/81
[2021-01-12] MEDS ORDERED: IPRATROPIUM BROM 0.5 MG/2.5ML INH SOL NEB ONE (10:45)
[2021-01-12] MEDS ORDERED: ALBUTEROL SULF 2.5 MG/0.5ML(0.5%) NEB SOLN NEB ONE (10:45)
[2021-01-12] MEDS ORDERED: methylPREDNISolone SOD SUCC 125 MG/2 ML VL IV ONE (11:00)
== END 2021-01-12 13:23 | disposition home or self-care (01) ==
LOC: ER 05:41 → EDBD 05:41 → ER 13:23
DX: J44.1 Chronic obstructive pulmonary disease with (acute) exacerbation (principal); C34.90 Malignant neoplasm of unspecified part of unspecified bronchus or lung; I10 Essential (primary) hypertension; F17.210 Nicotine dependence, cigarettes, uncomplicated; Z86.73 Personal history of transient ischemic attack (TIA), and cerebral infarction without residual deficits; Z20.822 Contact with and (suspected) exposure to COVID-19
CPT/HCPCS: 36415; 71045; 80053; 84484; 85025; 87426; 93005; 94644; 96374; 99285; J2930; J7644

== ENCOUNTER 2021-02-24 05:36 | Emergency (ER) | payer MEDICARE, MEDICAID ==
[~2021-02-24] VITALS: Ht 182.9 cm; Wt 70.8 kg
[2021-02-24] MEDS ORDERED: ALBUTEROL SULF 2.5 MG/0.5ML(0.5%) NEB SOLN NEB ONE (07:30)
[2021-02-24] MEDS ORDERED: IPRATROPIUM BROM 0.5 MG/2.5ML INH SOL NEB ONE (07:30)
[2021-02-24 07:34] LABS: Basophils # (auto) 0.1 10 ^3/uL (0-0.2); Basophils % (auto) 0.6 % (0.0-2.0); Eosinophils # (auto) 0.4 10 ^3/uL (0-0.8); Eosinophils % (auto) 3.1 % (0.0-7.0); Hematocrit 50.8 % (41.0-53.0); Hemoglobin 16.6 g/dL (13.5-17.5); Lymphocytes # (auto) 1.3 10 ^3/uL (0.4-5.4); Lymphocytes % (auto) 9.9 % (10.0-50.0); Mean Corpuscular Hemoglobin 27.8 pg (28.0-32.0); Mean Corpuscular Hgb Conc. 32.6 g/dL (32.0-36.0); Mean Corpuscular Volume 85.5 fL (80.0-100.0); Monocytes # (auto) 0.6 10 ^3/uL (0-1.3); Monocytes % (auto) 4.4 % (0.0-12.0); Neutrophils # (auto) 10.4 10 ^3/uL (1.6-8.6); Nucleated Red Blood Cells % 0.2 %; Red Blood Cells 5.95 10^6/uL (4.5-5.90); Red Cell Distribution Width 15.9 % (11.8-14.3); White Blood Cell 12.7 10^3/uL (4.4-10.8)
[2021-02-24 07:49] LABS: Albumin 3.5 g/dL (3.4-5.0); Potassium 4.3 mmol/L (3.5-5.1)
[2021-02-24 08:01] LABS: BUN/Creatinine Ratio 8.2; Bilirubin, Total 0.3 mg/dL (0.2-1.0); Total Protein 7.3 g/dL (6.4-8.2)
[2021-02-24 14:16] VITALS: BP 150/92
== END 2021-02-24 15:14 | disposition home or self-care (01) ==
LOC: ER 05:36 → EDBD 05:36 → ER 15:14
DX: J20.9 Acute bronchitis, unspecified (principal); J44.0 Chronic obstructive pulmonary disease with (acute) lower respiratory infection; I10 Essential (primary) hypertension; F17.210 Nicotine dependence, cigarettes, uncomplicated; Z86.73 Personal history of transient ischemic attack (TIA), and cerebral infarction without residual deficits
CPT/HCPCS: 36415; 71045; 80053; 83880; 84484; 85025; 93005

== ENCOUNTER 2021-03-15 08:01 | Emergency (ER) | payer MEDICARE, MEDICAID ==
[~2021-03-15] VITALS: Ht 165.1 cm; Wt 61.2 kg
[2021-03-15] MEDS ORDERED: IPRATROPIUM BROM 0.5 MG/2.5ML INH SOL NEB ONE ×2 (08:45→13:15)
[2021-03-15] MEDS ORDERED: ALBUTEROL SULF 2.5 MG/0.5ML(0.5%) NEB SOLN NEB ONE ×2 (08:45→13:15)
[2021-03-15 09:06] LABS: Basophils # (auto) 0.1 10 ^3/uL (0-0.2); Basophils % (auto) 1.1 % (0.0-2.0); Eosinophils % (auto) 11.2 % (0.0-7.0); Hematocrit 50.2 % (41.0-53.0); Hemoglobin 16.3 g/dL (13.5-17.5); Lymphocytes # (auto) 1.4 10 ^3/uL (0.4-5.4); Lymphocytes % (auto) 15.7 % (10.0-50.0); Mean Corpuscular Hemoglobin 27.6 pg (28.0-32.0); Mean Corpuscular Hgb Conc. 32.5 g/dL (32.0-36.0); Mean Corpuscular Volume 84.8 fL (80.0-100.0); Monocytes # (auto) 0.6 10 ^3/uL (0-1.3); Monocytes % (auto) 6.4 % (0.0-12.0); Neutrophils # (auto) 5.9 10 ^3/uL (1.6-8.6); Neutrophils % (auto) 65.6 % (37.0-80.0); Nucleated Red Blood Cells % 0.7 %; Red Blood Cells 5.92 10^6/uL (4.5-5.90); Red Cell Distribution Width 16.3 % (11.8-14.3)
[2021-03-15 09:20] LABS: Urine Bacteria NONE SEEN /hpf (None Seen); Urine Blood Negative /uL (Negative); Urine Specific Gravity 1.009 (1.001-1.035); Urine WBC <1 /hpf (0 - 3)
[2021-03-15 09:20] LABS: Albumin 3.6 g/dL (3.4-5.0); Calcium 8.6 mg/dL (8.5-10.1); Magnesium 3.1 mg/dL (1.6-2.6); Potassium 4.2 mmol/L (3.5-5.1)
[2021-03-15 09:29] LABS: BUN/Creatinine Ratio 8.2; Bilirubin, Total 0.3 mg/dL (0.2-1.0); Total Protein 7.3 g/dL (6.4-8.2)
[2021-03-15 14:07] VITALS: BP 136/76
== END 2021-03-15 14:21 | disposition home or self-care (01) ==
LOC: EDBD 08:01 → EDUNIT# 08:01 → ER 08:01
DX: J20.9 Acute bronchitis, unspecified (principal); J44.0 Chronic obstructive pulmonary disease with (acute) lower respiratory infection; I10 Essential (primary) hypertension; Z85.118 Personal history of other malignant neoplasm of bronchus and lung; Z20.822 Contact with and (suspected) exposure to COVID-19
CPT/HCPCS: 36415; 71045; 80053; 81001; 83735; 84484; 85025; 87426; 93005; 94640; 99285; J7644

== ENCOUNTER 2021-03-15 23:12 | Emergency (ER) | payer MEDICARE, MEDICAID ==
[~2021-03-15] VITALS: Ht 172.7 cm; Wt 72.6 kg
[2021-03-16 03:00] VITALS: BP 155/76
== END 2021-03-16 03:20 | disposition home or self-care (01) ==
LOC: EDBD 23:12 → ER 23:13
DX: J45.901 Unspecified asthma with (acute) exacerbation (principal); F17.210 Nicotine dependence, cigarettes, uncomplicated; I10 Essential (primary) hypertension; Z86.73 Personal history of transient ischemic attack (TIA), and cerebral infarction without residual deficits

== ENCOUNTER 2021-07-14 22:40 | Inpatient (IN) | payer MEDICARE, MEDICAID ==
[~2021-07-14] VITALS: Ht 162.6 cm; Wt 68.4 kg
[2021-07-14] MEDS ORDERED: IPRATROPIUM BROM 0.5 MG/2.5ML INH SOL HHN ONE (23:00)
[2021-07-14] MEDS ORDERED: ALBUTEROL SULF 2.5 MG/0.5ML(0.5%) NEB SOLN HHN ONE (23:00)
[2021-07-14] MEDS ORDERED: methylPREDNISolone SOD SUCC 125 MG/2 ML VL IV ONE (23:00)
[2021-07-14 23:30] LABS: Basophils # (auto) 0.1 10 ^3/uL (0-0.2); Basophils % (auto) 0.8 % (0.0-2.0); Eosinophils # (auto) 0.4 10 ^3/uL (0-0.8); Eosinophils % (auto) 4.3 % (0.0-7.0); Hematocrit 48.3 % (41.0-53.0); Hemoglobin 16.1 g/dL (13.5-17.5); Lymphocytes % (auto) 21.1 % (10.0-50.0); Mean Corpuscular Hemoglobin 28.5 pg (28.0-32.0); Mean Corpuscular Hgb Conc. 33.4 g/dL (32.0-36.0); Mean Corpuscular Volume 85.4 fL (80.0-100.0); Monocytes # (auto) 0.7 10 ^3/uL (0-1.3); Monocytes % (auto) 7.4 % (0.0-12.0); Neutrophils # (auto) 6.2 10 ^3/uL (1.6-8.6); Neutrophils % (auto) 66.4 % (37.0-80.0); Red Blood Cells 5.65 10^6/uL (4.5-5.90); Red Cell Distribution Width 16.3 % (11.8-14.3); White Blood Cell 9.4 10^3/uL (4.4-10.8)
[2021-07-14 23:38] LABS: Albumin 3.4 g/dL (3.4-5.0); BUN/Creatinine Ratio 12.8; Calcium 8.9 mg/dL (8.5-10.1); Potassium 4.2 mmol/L (3.5-5.1)
[2021-07-14 23:41] LABS: Bilirubin, Total 0.4 mg/dL (0.2-1.0); Total Protein 7.1 g/dL (6.4-8.2)
[2021-07-14 23:55] LABS: Lactic Acid w/Reflex 2.2 mmol/L (0.4-2.0)
[2021-07-15] MEDS ORDERED: AZITHROMYCIN 500MG/ 250ML 250 ML IV ONE (01:00)
[2021-07-15] MEDS ORDERED: NITROGLYCERIN 0.4 MG SL TAB SL PRN (01:00)
[2021-07-15] MEDS ORDERED: ONDANSETRON HCL 4 MG/2 ML VIAL IV PRN (01:00)
[2021-07-15] MEDS ORDERED: HYDROcodone-ACET 5/325MG TAB PO PRN (01:00)
[2021-07-15] MEDS ORDERED: cefTRIAXone 1GM/50ML D5W 50 ML IV ONE (01:00)
[2021-07-15] MEDS ORDERED: MORPHINE SULFATE INJ 2 MG/ml SYRG IV PRN (01:00)
[2021-07-15] MEDS ORDERED: TEMAZEPAM 15 MG CAP PO PRN (01:00)
[2021-07-15] MEDS ORDERED: ACETAMINOPHEN 325 MG TAB PO PRN (01:00)
[2021-07-15 05:19] LABS: Urine Bacteria NONE SEEN /hpf (None Seen); Urine Blood Negative /uL (Negative); Urine Mucus FEW (None Seen); Urine Specific Gravity 1.029 (1.001-1.035); Urine WBC 1 /hpf (0 - 3)
[2021-07-15 06:12] VITALS: BP 129/58
[2021-07-15] MEDS: cefTRIAXone 1GM/50ML D5W 50 ML IV SCH ×2 (09:34→20:34)
[2021-07-15] MEDS: PANTOPRAZOLE 40 MG TAB PO SCH (09:35)
[2021-07-15] MEDS: amLODIPine BESYLATE 5 MG TAB PO SCH (09:35)
[2021-07-15] MEDS: ENOXAPARIN SOD 40 MG/0.4 ML SYRINGE SC SCH (09:35)
[2021-07-15] MEDS: methylPREDNISolone SOD SUCC 125 MG/2 ML VL IV SCH ×2 (09:35→22:34)
[2021-07-15] MEDS: APIXABAN 5 MG TAB PO SCH ×2 (09:35→22:34)
[2021-07-15] MEDS: AZITHROMYCIN 500MG/ 250ML 250 ML IV SCH (22:34)
[2021-07-15 22:50] VITALS: BP 147/86
[2021-07-15 23:23] VITALS: BP 147/86
[2021-07-16 05:00] VITALS: BP 123/79
[2021-07-16 06:39] LABS: Basophils # (auto) 0 10 ^3/uL (0-0.2); Basophils % (auto) 0.2 % (0.0-2.0); Eosinophils # (auto) 0 10 ^3/uL (0-0.8); Hematocrit 43.6 % (41.0-53.0); Hemoglobin 14.5 g/dL (13.5-17.5); Lymphocytes # (auto) 0.9 10 ^3/uL (0.4-5.4); Lymphocytes % (auto) 5.7 % (10.0-50.0); Mean Corpuscular Hemoglobin 28.3 pg (28.0-32.0); Mean Corpuscular Hgb Conc. 33.2 g/dL (32.0-36.0); Mean Corpuscular Volume 85.4 fL (80.0-100.0); Monocytes # (auto) 0.3 10 ^3/uL (0-1.3); Neutrophils % (auto) 92.1 % (37.0-80.0); Nucleated Red Blood Cells % 0.1 %; Red Blood Cells 5.11 10^6/uL (4.5-5.90); Red Cell Distribution Width 16.4 % (11.8-14.3); White Blood Cell 15.2 10^3/uL (4.4-10.8)
[2021-07-16 06:42] LABS: Albumin 2.9 g/dL (3.4-5.0); Calcium 8.8 mg/dL (8.5-10.1); Potassium 4.8 mmol/L (3.5-5.1)
[2021-07-16 06:44] LABS: BUN/Creatinine Ratio 11.9
[2021-07-16 06:47] LABS: Bilirubin, Total 0.1 mg/dL (0.2-1.0); Total Protein 6.1 g/dL (6.4-8.2)
[2021-07-16] MEDS: IPRATROPIUM BROM 0.5 MG/2.5ML INH SOL NEB PRN (07:32)
[2021-07-16] MEDS: ALBUTEROL SULF 2.5 MG/0.5ML(0.5%) NEB SOLN NEB PRN (07:32)
[2021-07-16 09:00] VITALS: BP 161/101
[2021-07-16] MEDS: methylPREDNISolone SOD SUCC 125 MG/2 ML VL IV SCH ×2 (09:32→22:05)
[2021-07-16] MEDS: APIXABAN 5 MG TAB PO SCH ×2 (09:32→22:05)
[2021-07-16] MEDS: amLODIPine BESYLATE 5 MG TAB PO SCH (09:33)
[2021-07-16] MEDS: PANTOPRAZOLE 40 MG TAB PO SCH (09:33)
[2021-07-16] MEDS: ENOXAPARIN SOD 40 MG/0.4 ML SYRINGE SC SCH (09:34)
[2021-07-16 13:00] VITALS: BP 150/95
[2021-07-16 17:00] VITALS: BP 146/79
[2021-07-16] MEDS: cefTRIAXone 1GM/50ML D5W 50 ML IV SCH (21:50)
[2021-07-16 22:00] VITALS: BP 133/80
[2021-07-16] MEDS: AZITHROMYCIN 500MG/ 250ML 250 ML IV SCH (22:00)
[2021-07-17 05:00] VITALS: BP 123/74
[2021-07-17 09:00] VITALS: BP 130/81
[2021-07-17] MEDS: methylPREDNISolone SOD SUCC 125 MG/2 ML VL IV SCH (10:17)
[2021-07-17] MEDS: PANTOPRAZOLE 40 MG TAB PO SCH (10:17)
[2021-07-17] MEDS: ENOXAPARIN SOD 40 MG/0.4 ML SYRINGE SC SCH (10:18)
[2021-07-17] MEDS: APIXABAN 5 MG TAB PO SCH (10:18)
[2021-07-17] MEDS: amLODIPine BESYLATE 5 MG TAB PO SCH (10:18)
[2021-07-17] MEDS: ALBUTEROL SULF 2.5 MG/0.5ML(0.5%) NEB SOLN NEB PRN (10:32)
[2021-07-17] MEDS: IPRATROPIUM BROM 0.5 MG/2.5ML INH SOL NEB PRN (10:33)
[2021-07-17] MEDS ORDERED: PRED20TA2 PO (11:54)
[2021-07-17] MEDS ORDERED: ALBUAER3 IN (11:54)
[2021-07-17] MEDS ORDERED: AMLO-496 PO (11:54)
[2021-07-17] MEDS ORDERED: IPRIH INH (11:54)
[2021-07-17] MEDS ORDERED: AZIT500T66 PO (11:54)
[2021-07-17 13:00] VITALS: BP 138/91
[2021-07-17 15:03] VITALS: BP 138/91
== END 2021-07-17 16:29 | disposition home or self-care (01) | DRG 140 ==
LOC: EDBD 22:40 → ER 22:44 → TELE 07-15 00:50 → TELE-WESTW 07-15 22:00
PROVIDERS: ADMIT Nurse Practitioner; ATTEND Family Medicine
DX: J44.1 Chronic obstructive pulmonary disease with (acute) exacerbation (principal); J96.21 Acute and chronic respiratory failure with hypoxia; J69.0 Pneumonitis due to inhalation of food and vomit; I10 Essential (primary) hypertension; Z20.822 Contact with and (suspected) exposure to COVID-19; F17.210 Nicotine dependence, cigarettes, uncomplicated; I25.2 Old myocardial infarction; Z80.9 Family history of malignant neoplasm, unspecified; Z82.0 Family history of epilepsy and other diseases of the nervous system; Z85.118 Personal history of other malignant neoplasm of bronchus and lung; Z86.73 Personal history of transient ischemic attack (TIA), and cerebral infarction without residual deficits
CPT/HCPCS: 36415; 71045; 80053; 81001; 83605; 83880; 84484; 85025; 85379; 87040; 93005; 94640; 96374; G0378; J0696

== ENCOUNTER 2022-02-18 09:30 | Inpatient (IN) | payer MEDICARE, MEDICAID ==
[~2022-02-18] VITALS: Ht 167.6 cm; Wt 70.4 kg
[~2022-02-18 09:30] MED LIST changes: +AMLO-496 PO; +IPRIH INH
[2022-02-18] MEDS ORDERED: methylPREDNISolone SOD SUCC 125 MG/2 ML VL IV ONE (10:00)
[2022-02-18] MEDS ORDERED: IPRATROPIUM BROM 0.5 MG/2.5ML INH SOL NEB ONE (10:00)
[2022-02-18] MEDS ORDERED: ALBUTEROL SULF 2.5 MG/0.5ML(0.5%) NEB SOLN NEB ONE ×2 (10:00→11:30)
[2022-02-18] MEDS ORDERED: ALBUTEROL MEDNEB 2.5 mg/3ml NEB ONE (10:03)
[2022-02-18 10:57] LABS: Albumin 3.5 g/dL (3.4-5.0); Calcium 8.8 mg/dL (8.5-10.1); Potassium 3.9 mmol/L (3.5-5.1)
[2022-02-18 11:00] LABS: Basophils # (auto) 0 10 ^3/uL (0-0.2); Basophils % (auto) 0.3 % (0.0-2.0); Eosinophils # (auto) 0.2 10 ^3/uL (0-0.8); Eosinophils % (auto) 1.8 % (0.0-7.0); Hematocrit 46.6 % (41.0-53.0); Hemoglobin 15.4 g/dL (13.5-17.5); Lymphocytes % (auto) 9.2 % (10.0-50.0); Mean Corpuscular Hemoglobin 27.9 pg (28.0-32.0); Mean Corpuscular Volume 84.5 fL (80.0-100.0); Monocytes # (auto) 1.2 10 ^3/uL (0-1.3); Monocytes % (auto) 11.3 % (0.0-12.0); Neutrophils # (auto) 8.5 10 ^3/uL (1.6-8.6); Neutrophils % (auto) 77.4 % (37.0-80.0); Nucleated Red Blood Cells % 0.1 %; Red Blood Cells 5.51 10^6/uL (4.5-5.90); Red Cell Distribution Width 16.2 % (11.8-14.3)
[2022-02-18 11:01] LABS: BUN/Creatinine Ratio 7.7; Bilirubin, Total 0.3 mg/dL (0.2-1.0); Total Protein 6.7 g/dL (6.4-8.2)
[2022-02-18] MEDS ORDERED: cefTRIAXone 1GM/50ML D5W 50 ML IV ONE (11:30)
[2022-02-18] MEDS ORDERED: NITROGLYCERIN 0.4 MG SL TAB SL PRN (17:30)
[2022-02-18] MEDS ORDERED: PANTOPRAZOLE 40 MG/10 ML VIAL INJ IV ONE (17:30)
[2022-02-18] MEDS ORDERED: MORPHINE SULFATE INJ 2 MG/ml SYRG IV PRN (17:30)
[2022-02-18] MEDS ORDERED: REMDESIVIR PER PHARMACY 0 ML IV SCH (17:45)
[2022-02-18] MEDS ORDERED: IPRATROPIUM BROM 0.5 MG/2.5ML INH SOL NEB PRN (17:45)
[2022-02-18] MEDS ORDERED: ALBUTEROL SULF 2.5 MG/0.5ML(0.5%) NEB SOLN NEB PRN (17:45)
[2022-02-18] MEDS ORDERED: IPRATROPIUM BROM 0.5 MG/2.5ML INH SOL NEB SCH (18:00)
[2022-02-18] MEDS ORDERED: ALBUTEROL SULF 2.5 MG/0.5ML(0.5%) NEB SOLN NEB SCH (18:00)
[2022-02-18 19:59] LABS: CRP High Sensitivity 0.68 mg/dL (< 0.3); Magnesium 2.4 mg/dL (1.6-2.6)
[2022-02-18 20:14] LABS: Thyroid Stimulating Hormone 1.38 uIU/mL (0.358-3.74)
[2022-02-18 21:50] LABS: Lactic Acid w/Reflex 4.2 mmol/L (0.4-2.0)
[2022-02-18] MEDS: BUDESONIDE (INHALATION) 180 MCG IH IN SCH (22:00)
[2022-02-18] MEDS ORDERED: REMDESIVIR 200 MG in NS 210ml LOADING DOSE ADULT IV ONE (22:00)
[2022-02-18] MEDS: ENOXAPARIN SOD 40 MG/0.4 ML SYRINGE SC SCH (22:04)
[2022-02-19] MEDS: ALBUTEROL SULF HFA 90MCG INH 200DOSE IN PRN ×2 (02:46→22:22)
[2022-02-19 02:50] VITALS: BP 132/81
[2022-02-19] MEDS ORDERED: AMLO-496 PO (05:47)
[2022-02-19] MEDS ORDERED: hydrALAZINE HCL 20 MG/ML VL IV PRN (06:00)
[2022-02-19] MEDS ORDERED: LORazepam 2MG/ML-1ML VIAL IV PRN (06:00)
[2022-02-19 06:25] LABS: Basophils # (auto) 0.1 10 ^3/uL (0-0.2); Basophils % (auto) 0.5 % (0.0-2.0); Eosinophils # (auto) 0.2 10 ^3/uL (0-0.8); Eosinophils % (auto) 1.5 % (0.0-7.0); Hematocrit 44.3 % (41.0-53.0); Hemoglobin 14.7 g/dL (13.5-17.5); Lymphocytes # (auto) 1.4 10 ^3/uL (0.4-5.4); Lymphocytes % (auto) 12.8 % (10.0-50.0); Mean Corpuscular Hemoglobin 27.8 pg (28.0-32.0); Mean Corpuscular Hgb Conc. 33.1 g/dL (32.0-36.0); Mean Corpuscular Volume 84.1 fL (80.0-100.0); Monocytes # (auto) 1.4 10 ^3/uL (0-1.3); Monocytes % (auto) 13.1 % (0.0-12.0); Neutrophils # (auto) 7.8 10 ^3/uL (1.6-8.6); Neutrophils % (auto) 72.1 % (37.0-80.0); Nucleated Red Blood Cells % 0.3 %; Red Blood Cells 5.27 10^6/uL (4.5-5.90); Red Cell Distribution Width 15.7 % (11.8-14.3); White Blood Cell 10.8 10^3/uL (4.4-10.8)
[2022-02-19 06:34] LABS: Calcium 8.8 mg/dL (8.5-10.1); Potassium 3.6 mmol/L (3.5-5.1)
[2022-02-19 06:36] LABS: BUN/Creatinine Ratio 9.3
[2022-02-19 06:38] LABS: Bilirubin, Total 0.4 mg/dL (0.2-1.0); Total Protein 6.4 g/dL (6.4-8.2)
[2022-02-19] MEDS: DexAMETHasone SOD PHOS 10MG/1ML VIAL INJ IV SCH (09:52)
[2022-02-19] MEDS: CHOLECALCIFEROL (VITD3) 2,000 UNIT CAP/TAB PO SCH (09:53)
[2022-02-19] MEDS: ASCORBIC ACID 1,000 MG TAB PO SCH (09:53)
[2022-02-19] MEDS: PANTOPRAZOLE 40 MG/10 ML VIAL INJ IV SCH (09:53)
[2022-02-19] MEDS: AZITHROMYCIN 500MG/ 250ML 250 ML IV SCH (09:53)
[2022-02-19] MEDS: NICOTINE 7MG/24HR TOPICAL PATCH TD SCH (09:54)
[2022-02-19] MEDS: ENOXAPARIN SOD 40 MG/0.4 ML SYRINGE SC SCH (09:54)
[2022-02-19] MEDS: amLODIPine BESYLATE 5 MG TAB PO SCH (09:55)
[2022-02-19] MEDS: BUDESONIDE (INHALATION) 180 MCG IH IN SCH ×2 (11:35→22:22)
[2022-02-19] MEDS: REMDESIVIR 100mg 100 MG in SODIUM CHL 0.9% 230 ML IV SCH (15:25)
[2022-02-19 22:00] VITALS: BP 111/80
[2022-02-19] MEDS: APIXABAN 5 MG TAB PO SCH (22:00)
[2022-02-19] MEDS ORDERED: BUDESONIDE (INHALATION) 0.5 MG/2 ML NEB NEB SCH (22:00)
[2022-02-20] VITALS (7 sets, daily range): BP systolic 115–145; BP diastolic 69–89
[2022-02-20 07:55] LABS: Albumin 3.2 g/dL (3.4-5.0); Calcium 9.3 mg/dL (8.5-10.1)
[2022-02-20 08:01] LABS: BUN/Creatinine Ratio 13.3; Bilirubin, Total 0.4 mg/dL (0.2-1.0); Total Protein 6.1 g/dL (6.4-8.2)
[2022-02-20] MEDS: BUDESONIDE (INHALATION) 180 MCG IH IN SCH ×2 (10:00→19:12)
[2022-02-20] MEDS: PANTOPRAZOLE 40 MG/10 ML VIAL INJ IV SCH (11:30)
[2022-02-20] MEDS: ASCORBIC ACID 1,000 MG TAB PO SCH (11:31)
[2022-02-20] MEDS: DexAMETHasone SOD PHOS 10MG/1ML VIAL INJ IV SCH (11:31)
[2022-02-20] MEDS: APIXABAN 5 MG TAB PO SCH ×2 (11:31→22:00)
[2022-02-20] MEDS: AZITHROMYCIN 500MG/ 250ML 250 ML IV SCH (11:33)
[2022-02-20] MEDS: CHOLECALCIFEROL (VITD3) 2,000 UNIT CAP/TAB PO SCH (11:33)
[2022-02-20] MEDS: amLODIPine BESYLATE 5 MG TAB PO SCH (12:21)
[2022-02-20] MEDS: NICOTINE 7MG/24HR TOPICAL PATCH TD SCH (12:22)
[2022-02-20] MEDS: REMDESIVIR 100mg 100 MG in SODIUM CHL 0.9% 230 ML IV SCH (16:39)
[2022-02-20] MEDS: ALBUTEROL SULF HFA 90MCG INH 200DOSE IN PRN (20:12)
[2022-02-21 05:00] VITALS: BP 116/61
[2022-02-21 07:37] LABS: Potassium 4.9 mmol/L (3.5-5.1)
[2022-02-21 07:44] LABS: BUN/Creatinine Ratio 16.1; Bilirubin, Total 0.4 mg/dL (0.2-1.0); Calcium 8.9 mg/dL (8.5-10.1); Total Protein 5.8 g/dL (6.4-8.2)
[2022-02-21 09:28] VITALS: BP 128/81
[2022-02-21] MEDS: AZITHROMYCIN 500MG/ 250ML 250 ML IV SCH (09:58)
[2022-02-21] MEDS: APIXABAN 5 MG TAB PO SCH ×2 (09:59→21:52)
[2022-02-21] MEDS: ASCORBIC ACID 1,000 MG TAB PO SCH (09:59)
[2022-02-21] MEDS: PANTOPRAZOLE 40 MG/10 ML VIAL INJ IV SCH (10:00)
[2022-02-21] MEDS: amLODIPine BESYLATE 5 MG TAB PO SCH (10:00)
[2022-02-21] MEDS: NICOTINE 7MG/24HR TOPICAL PATCH TD SCH (10:02)
[2022-02-21] MEDS: DexAMETHasone SOD PHOS 10MG/1ML VIAL INJ IV SCH (10:04)
[2022-02-21] MEDS: CHOLECALCIFEROL (VITD3) 2,000 UNIT CAP/TAB PO SCH (10:14)
[2022-02-21] MEDS: BUDESONIDE (INHALATION) 180 MCG IH IN SCH ×2 (14:33→21:33)
[2022-02-21] MEDS: ALBUTEROL SULF HFA 90MCG INH 200DOSE IN PRN (14:33)
[2022-02-21] MEDS: REMDESIVIR 100mg 100 MG in SODIUM CHL 0.9% 230 ML IV SCH (15:37)
[2022-02-21 17:09] VITALS: BP 120/66
[2022-02-21 22:01] VITALS: BP 116/78
[2022-02-22] VITALS (8 sets, daily range): BP systolic 102–128; BP diastolic 43–80
[2022-02-22 07:05] LABS: Basophils # (auto) 0 10 ^3/uL (0-0.2); Basophils % (auto) 0.2 % (0.0-2.0); Eosinophils # (auto) 0 10 ^3/uL (0-0.8); Hematocrit 45.7 % (41.0-53.0); Hemoglobin 15.5 g/dL (13.5-17.5); Lymphocytes # (auto) 1.8 10 ^3/uL (0.4-5.4); Lymphocytes % (auto) 11.2 % (10.0-50.0); Mean Corpuscular Hgb Conc. 33.8 g/dL (32.0-36.0); Mean Corpuscular Volume 82.8 fL (80.0-100.0); Monocytes # (auto) 0.8 10 ^3/uL (0-1.3); Monocytes % (auto) 5.2 % (0.0-12.0); Neutrophils # (auto) 13.3 10 ^3/uL (1.6-8.6); Neutrophils % (auto) 83.4 % (37.0-80.0); Nucleated Red Blood Cells % 0.1 %; Red Blood Cells 5.52 10^6/uL (4.5-5.90)
[2022-02-22 07:24] LABS: Albumin 3.2 g/dL (3.4-5.0); Calcium 9.5 mg/dL (8.5-10.1); Potassium 4.9 mmol/L (3.5-5.1)
[2022-02-22 07:27] LABS: BUN/Creatinine Ratio 18.7; Bilirubin, Total 0.3 mg/dL (0.2-1.0); Total Protein 6.2 g/dL (6.4-8.2)
[2022-02-22] MEDS: NICOTINE 7MG/24HR TOPICAL PATCH TD SCH (10:00)
[2022-02-22] MEDS: BUDESONIDE (INHALATION) 180 MCG IH IN SCH ×2 (10:04→22:55)
[2022-02-22] MEDS: ALBUTEROL SULF HFA 90MCG INH 200DOSE IN PRN ×2 (10:05→22:55)
[2022-02-22] MEDS: AZITHROMYCIN 500MG/ 250ML 250 ML IV SCH (10:41)
[2022-02-22] MEDS: PANTOPRAZOLE 40 MG/10 ML VIAL INJ IV SCH (10:45)
[2022-02-22] MEDS: DexAMETHasone SOD PHOS 10MG/1ML VIAL INJ IV SCH (10:46)
[2022-02-22] MEDS: APIXABAN 5 MG TAB PO SCH ×2 (10:57→22:14)
[2022-02-22] MEDS: CHOLECALCIFEROL (VITD3) 2,000 UNIT CAP/TAB PO SCH (10:59)
[2022-02-22] MEDS: amLODIPine BESYLATE 5 MG TAB PO SCH (10:59)
[2022-02-22] MEDS: ASCORBIC ACID 1,000 MG TAB PO SCH (10:59)
[2022-02-22] MEDS: REMDESIVIR 100mg 100 MG in SODIUM CHL 0.9% 230 ML IV SCH (15:00)
[2022-02-23 05:00] VITALS: BP 116/70
[2022-02-23 08:00] VITALS: BP 115/69
[2022-02-23 09:30] VITALS: BP 104/66
[2022-02-23] MEDS: CHOLECALCIFEROL (VITD3) 2,000 UNIT CAP/TAB PO SCH (10:00)
[2022-02-23] MEDS: PANTOPRAZOLE 40 MG/10 ML VIAL INJ IV SCH (10:00)
[2022-02-23] MEDS: amLODIPine BESYLATE 5 MG TAB PO SCH (10:27)
[2022-02-23] MEDS: ASCORBIC ACID 1,000 MG TAB PO SCH (10:27)
[2022-02-23] MEDS: APIXABAN 5 MG TAB PO SCH (10:28)
[2022-02-23] MEDS: AZITHROMYCIN 500MG/ 250ML 250 ML IV SCH (10:29)
[2022-02-23] MEDS: DexAMETHasone SOD PHOS 10MG/1ML VIAL INJ IV SCH (10:30)
[2022-02-23] MEDS: NICOTINE 7MG/24HR TOPICAL PATCH TD SCH (10:31)
[2022-02-23] MEDS: BUDESONIDE (INHALATION) 180 MCG IH IN SCH (10:54)
[2022-02-23] MEDS: ALBUTEROL SULF HFA 90MCG INH 200DOSE IN PRN (10:54)
[2022-02-23 15:27] VITALS: BP 116/70
[2022-02-23 16:50] VITALS: BP 110/66
== END 2022-02-23 17:50 | disposition home or self-care (01) | DRG 137 ==
LOC: EDBD 09:30 → ER 09:30 → TELE 17:25 → TELE-WESTW 02-19 22:19
PROVIDERS: ADMIT Registered Nurse; ATTEND Nurse Practitioner Acute Care
PROC: XW033E5 Introduction of Remdesivir Anti-infective into Peripheral Vein, Percutaneous Approach, New Technology Group 5 (ICD-10-PCS; principal; 2022-02-18)
DX: U07.1 COVID-19 (principal); J96.21 Acute and chronic respiratory failure with hypoxia; J12.82 Pneumonia due to coronavirus disease 2019; J44.0 Chronic obstructive pulmonary disease with (acute) lower respiratory infection; I10 Essential (primary) hypertension; J44.1 Chronic obstructive pulmonary disease with (acute) exacerbation; F17.210 Nicotine dependence, cigarettes, uncomplicated; Z86.73 Personal history of transient ischemic attack (TIA), and cerebral infarction without residual deficits; Z23 Encounter for immunization; Z81.8 Family history of other mental and behavioral disorders; Z71.6 Tobacco abuse counseling
CPT/HCPCS: 36415; 36600; 71045; 80053; 80061; 82306; 82728; 82805; 83036; 83605; 83615; 83735; 83880; 84443; 84484; 85025; 85379; 86141; 87426; 93005; 94640; 99291; C9113; G0378; J0696; J1100

== ENCOUNTER 2022-03-24 15:10 | Inpatient (IN) | payer MEDICARE, MEDICAID ==
[~2022-03-24] VITALS: Ht 165.1 cm; Wt 68.7 kg
[~2022-03-24 15:10] MED LIST changes: -AMLO-489 PO
[2022-03-24] MEDS ORDERED: MAGNESIUM SULFATE 1GM/100ML 100 ML IV ONE (15:45)
[2022-03-24] MEDS ORDERED: methylPREDNISolone SOD SUCC 125 MG/2 ML VL IV ONE (15:45)
[2022-03-24 15:59] LABS: Basophils # (auto) 0.1 10 ^3/uL (0-0.2); Basophils % (auto) 1.1 % (0.0-2.0); Eosinophils # (auto) 0.7 10 ^3/uL (0-0.8); Eosinophils % (auto) 7.2 % (0.0-7.0); Hemoglobin 15.4 g/dL (13.5-17.5); Lymphocytes # (auto) 1.7 10 ^3/uL (0.4-5.4); Lymphocytes % (auto) 18.6 % (10.0-50.0); Mean Corpuscular Hemoglobin 27.7 pg (28.0-32.0); Mean Corpuscular Hgb Conc. 32.8 g/dL (32.0-36.0); Mean Corpuscular Volume 84.6 fL (80.0-100.0); Monocytes # (auto) 0.7 10 ^3/uL (0-1.3); Neutrophils # (auto) 6.1 10 ^3/uL (1.6-8.6); Neutrophils % (auto) 65.1 % (37.0-80.0); Nucleated Red Blood Cells % 0.1 %; Red Blood Cells 5.56 10^6/uL (4.5-5.90); White Blood Cell 9.3 10^3/uL (4.4-10.8)
[2022-03-24 16:09] LABS: INR 0.98 (0.9-1.15); Partial Thromboplastin Time 27.2 sec (24.6-33.4)
[2022-03-24 16:10] LABS: Albumin 3.6 g/dL (3.4-5.0); Calcium 8.7 mg/dL (8.5-10.1); Potassium 4.2 mmol/L (3.5-5.1)
[2022-03-24 16:13] LABS: Bilirubin, Total 0.2 mg/dL (0.2-1.0); Total Protein 6.6 g/dL (6.4-8.2)
[2022-03-24] MEDS ORDERED: cefTRIAXone 1GM/50ML D5W 50 ML IV ONE (17:30)
[2022-03-24] MEDS ORDERED: ACETAMINOPHEN 325 MG TAB PO PRN (18:00)
[2022-03-24] MEDS: ALBUTEROL MEDNEB 2.5 mg/3ml NEB NEB SCH ×2 (19:52→22:18)
[2022-03-24] MEDS: IPRATROPIUM BROM 0.5 MG/2.5ML INH SOL NEB SCH ×2 (19:52→22:19)
[2022-03-24] MEDS: methylPREDNISolone SOD SUCC 125 MG/2 ML VL IV SCH (21:06)
[2022-03-24] MEDS: APIXABAN 5 MG TAB PO SCH (21:06)
[2022-03-24] MEDS ORDERED: APIXABAN 5 MG TAB PO SCH (22:00)
[2022-03-24 22:44] VITALS: BP 119/72
[2022-03-25] VITALS (7 sets, daily range): BP systolic 114–139; BP diastolic 60–80
[2022-03-25] MEDS: ALBUTEROL MEDNEB 2.5 mg/3ml NEB NEB SCH ×6 (02:20→22:39)
[2022-03-25] MEDS: IPRATROPIUM BROM 0.5 MG/2.5ML INH SOL NEB SCH ×6 (02:21→22:40)
[2022-03-25 06:44] LABS: Basophils # (auto) 0 10 ^3/uL (0-0.2); Basophils % (auto) 0.2 % (0.0-2.0); Eosinophils # (auto) 0 10 ^3/uL (0-0.8); Hematocrit 44.1 % (41.0-53.0); Hemoglobin 14.4 g/dL (13.5-17.5); Lymphocytes # (auto) 0.8 10 ^3/uL (0.4-5.4); Lymphocytes % (auto) 7.4 % (10.0-50.0); Mean Corpuscular Hemoglobin 27.6 pg (28.0-32.0); Mean Corpuscular Hgb Conc. 32.7 g/dL (32.0-36.0); Mean Corpuscular Volume 84.3 fL (80.0-100.0); Monocytes # (auto) 0.2 10 ^3/uL (0-1.3); Monocytes % (auto) 1.8 % (0.0-12.0); Neutrophils # (auto) 10.1 10 ^3/uL (1.6-8.6); Neutrophils % (auto) 90.6 % (37.0-80.0); Red Blood Cells 5.24 10^6/uL (4.5-5.90); Red Cell Distribution Width 16.2 % (11.8-14.3); White Blood Cell 11.2 10^3/uL (4.4-10.8)
[2022-03-25 06:58] LABS: Albumin 3.3 g/dL (3.4-5.0); Potassium 4.7 mmol/L (3.5-5.1)
[2022-03-25 07:06] LABS: BUN/Creatinine Ratio 10.2; Bilirubin, Total 0.1 mg/dL (0.2-1.0); Calcium 9.2 mg/dL (8.5-10.1); Total Protein 6.4 g/dL (6.4-8.2)
[2022-03-25] MEDS: cefTRIAXone 1GM/50ML D5W 50 ML IV SCH (10:02)
[2022-03-25] MEDS: methylPREDNISolone SOD SUCC 125 MG/2 ML VL IV SCH (10:03)
[2022-03-25] MEDS: amLODIPine BESYLATE 5 MG TAB PO SCH (10:04)
[2022-03-25] MEDS: PANTOPRAZOLE 40 MG TAB PO SCH (10:04)
[2022-03-25] MEDS: APIXABAN 5 MG TAB PO SCH ×2 (10:04→22:16)
[2022-03-25] MEDS: NICOTINE 21MG/24 HR TOPICAL PATCH TD SCH (10:05)
[2022-03-25] MEDS ORDERED: AZITHROMYCIN 250 MG TAB PO ONE (11:15)
[2022-03-25] MEDS: methylPREDNISolone SOD SUCC 40 MG/ML VL IV SCH (22:17)
[2022-03-26] MEDS: IPRATROPIUM BROM 0.5 MG/2.5ML INH SOL NEB SCH ×6 (02:02→22:03)
[2022-03-26] MEDS: ALBUTEROL MEDNEB 2.5 mg/3ml NEB NEB SCH ×6 (02:03→22:03)
[2022-03-26 03:35] LABS: Urine WBC None Seen /hpf (0 - 3)
[2022-03-26 03:42] LABS: Urine Bacteria NONE SEEN /hpf (None Seen); Urine Blood Negative /uL (Negative); Urine Specific Gravity 1.013 (1.001-1.035)
[2022-03-26 05:00] VITALS: BP 129/73
[2022-03-26 09:00] VITALS: BP 124/68
[2022-03-26] MEDS: PANTOPRAZOLE 40 MG TAB PO SCH (10:42)
[2022-03-26] MEDS: AZITHROMYCIN 250 MG TAB PO SCH (10:43)
[2022-03-26] MEDS: methylPREDNISolone SOD SUCC 40 MG/ML VL IV SCH (10:43)
[2022-03-26] MEDS: NICOTINE 21MG/24 HR TOPICAL PATCH TD SCH (10:43)
[2022-03-26] MEDS: cefTRIAXone 1GM/50ML D5W 50 ML IV SCH (10:43)
[2022-03-26] MEDS: APIXABAN 5 MG TAB PO SCH ×2 (10:43→21:36)
[2022-03-26] MEDS: amLODIPine BESYLATE 5 MG TAB PO SCH (10:44)
[2022-03-26 13:00] VITALS: BP 121/71
[2022-03-26 16:51] VITALS: BP 128/66
[2022-03-26 20:00] VITALS: BP 124/86
[2022-03-26 22:00] VITALS: BP 118/56
[2022-03-27 05:00] VITALS: BP_SYST 106; BP_SYST 137; BP_DIAS 54; BP_DIAS 65
[2022-03-27] MEDS: IPRATROPIUM BROM 0.5 MG/2.5ML INH SOL NEB SCH ×3 (07:14→13:59)
[2022-03-27] MEDS: ALBUTEROL MEDNEB 2.5 mg/3ml NEB NEB SCH ×3 (07:14→13:59)
[2022-03-27 08:00] VITALS: BP 111/74
[2022-03-27 09:00] VITALS: BP 111/74
[2022-03-27] MEDS: cefTRIAXone 1GM/50ML D5W 50 ML IV SCH (09:00)
[2022-03-27] MEDS: PANTOPRAZOLE 40 MG TAB PO SCH (09:14)
[2022-03-27] MEDS: amLODIPine BESYLATE 5 MG TAB PO SCH (09:14)
[2022-03-27] MEDS: APIXABAN 5 MG TAB PO SCH (09:14)
[2022-03-27] MEDS: AZITHROMYCIN 250 MG TAB PO SCH (09:15)
[2022-03-27] MEDS: NICOTINE 21MG/24 HR TOPICAL PATCH TD SCH (09:20)
[2022-03-27] MEDS ORDERED: predniSONE 20 MG TAB PO SCH (10:00)
[2022-03-27] MEDS ORDERED: AZIT500T PO (11:34)
[2022-03-27] MEDS ORDERED: NICO1DIS30 TD (11:34)
[2022-03-27] MEDS ORDERED: ALBU108A5 IN (11:34)
[2022-03-27] MEDS ORDERED: PRED20TA2 PO (11:34)
[2022-03-27 13:46] VITALS: BP 143/82
== END 2022-03-27 16:44 | disposition home or self-care (01) | DRG 133 ==
LOC: EDBD 15:10 → ER 15:10 → OVERFLOW 17:56 → WEST WING 23:29
PROVIDERS: ADMIT Nurse Practitioner Family; ATTEND Internal Medicine
DX: J96.00 Acute respiratory failure, unspecified whether with hypoxia or hypercapnia (principal); J15.6 Pneumonia due to other Gram-negative bacteria; J44.0 Chronic obstructive pulmonary disease with (acute) lower respiratory infection; J44.1 Chronic obstructive pulmonary disease with (acute) exacerbation; J45.901 Unspecified asthma with (acute) exacerbation; I10 Essential (primary) hypertension; Z20.822 Contact with and (suspected) exposure to COVID-19; Z86.711 Personal history of pulmonary embolism; Z86.73 Personal history of transient ischemic attack (TIA), and cerebral infarction without residual deficits; Z85.118 Personal history of other malignant neoplasm of bronchus and lung; Z82.0 Family history of epilepsy and other diseases of the nervous system; Z79.01 Long term (current) use of anticoagulants; Z80.9 Family history of malignant neoplasm, unspecified; Z72.0 Tobacco use; Z71.6 Tobacco abuse counseling
CPT/HCPCS: 36415; 71045; 80053; 81001; 83880; 84484; 85025; 85379; 85610; 85730; 87081; 87426; 87804; 93005; 94640; G0378; J0696

== ENCOUNTER 2022-04-14 05:43 | Emergency (ER) | payer MEDICARE, MEDICAID ==
[~2022-04-14] VITALS: Ht 167.6 cm; Wt 68.0 kg
[~2022-04-14 05:43] MED LIST changes: +ALBU108A5 IN; +AZIT500T PO; +NICO1DIS30 TD
[2022-04-14] MEDS ORDERED: ALBUTEROL SULF 2.5 MG/0.5ML(0.5%) NEB SOLN NEB ONE (07:00)
[2022-04-14] MEDS ORDERED: IPRATROPIUM BROM 0.5 MG/2.5ML INH SOL NEB ONE (07:00)
[2022-04-14] MEDS ORDERED: methylPREDNISolone SOD SUCC 125 MG/2 ML VL IM ONE (07:00)
[2022-04-14] MEDS ORDERED: ALBUTEROL MEDNEB 2.5 mg/3ml NEB ONE (07:10)
[2022-04-14 07:31] LABS: Albumin 3.5 g/dL (3.4-5.0); Basophils # (auto) 0.1 10 ^3/uL (0-0.2); Basophils % (auto) 1.1 % (0.0-2.0); Calcium 8.7 mg/dL (8.5-10.1); Eosinophils # (auto) 0.8 10 ^3/uL (0-0.8); Eosinophils % (auto) 7.9 % (0.0-7.0); Hematocrit 45.7 % (41.0-53.0); Hemoglobin 15.2 g/dL (13.5-17.5); Lymphocytes # (auto) 1.4 10 ^3/uL (0.4-5.4); Lymphocytes % (auto) 14.2 % (10.0-50.0); Magnesium 2.5 mg/dL (1.6-2.6); Mean Corpuscular Hemoglobin 28.4 pg (28.0-32.0); Mean Corpuscular Hgb Conc. 33.2 g/dL (32.0-36.0); Mean Corpuscular Volume 85.7 fL (80.0-100.0); Monocytes # (auto) 0.5 10 ^3/uL (0-1.3); Monocytes % (auto) 5.7 % (0.0-12.0); Neutrophils # (auto) 6.8 10 ^3/uL (1.6-8.6); Neutrophils % (auto) 71.1 % (37.0-80.0); Nucleated Red Blood Cells % 0.1 %; Potassium 4.1 mmol/L (3.5-5.1); Red Blood Cells 5.33 10^6/uL (4.5-5.90); Red Cell Distribution Width 16.5 % (11.8-14.3); White Blood Cell 9.6 10^3/uL (4.4-10.8)
[2022-04-14 07:35] LABS: BUN/Creatinine Ratio 10.8; Bilirubin, Total 0.3 mg/dL (0.2-1.0); Total Protein 6.2 g/dL (6.4-8.2)
[2022-04-14 08:11] LABS: INR 0.97 (0.9-1.15); Partial Thromboplastin Time 27.2 sec (24.6-33.4)
[2022-04-14 10:45] VITALS: BP 144/72
== END 2022-04-14 10:56 | disposition home or self-care (01) ==
LOC: ER 05:43 → EDBD 05:43 → ER 10:49
DX: J20.9 Acute bronchitis, unspecified (principal); J44.9 Chronic obstructive pulmonary disease, unspecified; I10 Essential (primary) hypertension; I25.2 Old myocardial infarction; F17.210 Nicotine dependence, cigarettes, uncomplicated
CPT/HCPCS: 36415; 71045; 80053; 83735; 83880; 84484; 85025; 85610; 85730; 93005; 94640; 96372; 99285; J2930; J7644

== ENCOUNTER 2022-04-17 04:49 | Inpatient (IN) | payer MEDICARE, MEDICAID ==
[~2022-04-17] VITALS: Ht 165.1 cm; Wt 68.9 kg
[2022-04-17] MEDS ORDERED: methylPREDNISolone SOD SUCC 125 MG/2 ML VL IV ONE (05:00)
[2022-04-17] MEDS ORDERED: SODIUM CHLORIDE 0.9% 1,000 ML IV ONE ×2 (05:00→10:30)
[2022-04-17] MEDS ORDERED: ALBUTEROL SULF 2.5 MG/0.5ML(0.5%) NEB SOLN NEB ONE (05:00)
[2022-04-17] MEDS ORDERED: IPRATROPIUM BROM 0.5 MG/2.5ML INH SOL NEB ONE (05:00)
[2022-04-17 06:05] LABS: Basophils # (auto) 0.1 10 ^3/uL (0-0.2); Eosinophils # (auto) 0.9 10 ^3/uL (0-0.8); Eosinophils % (auto) 7.2 % (0.0-7.0); Hematocrit 48.3 % (41.0-53.0); Hemoglobin 15.9 g/dL (13.5-17.5); Lymphocytes # (auto) 1.3 10 ^3/uL (0.4-5.4); Lymphocytes % (auto) 10.4 % (10.0-50.0); Mean Corpuscular Hemoglobin 28.4 pg (28.0-32.0); Monocytes # (auto) 1.1 10 ^3/uL (0-1.3); Monocytes % (auto) 9.3 % (0.0-12.0); Neutrophils # (auto) 8.8 10 ^3/uL (1.6-8.6); Neutrophils % (auto) 72.1 % (37.0-80.0); Nucleated Red Blood Cells % 0.2 %; Red Blood Cells 5.61 10^6/uL (4.5-5.90); Red Cell Distribution Width 16.8 % (11.8-14.3); White Blood Cell 12.2 10^3/uL (4.4-10.8)
[2022-04-17] MEDS ORDERED: ALBUTEROL MEDNEB 2.5 mg/3ml NEB ONE ×3 (06:05→14:23)
[2022-04-17] MEDS ORDERED: ACETAMINOPHEN 325 MG TAB PO PRN (06:15)
[2022-04-17] MEDS ORDERED: VANCOMYCIN PER PHARMACY 1,000 MG IV SCH (06:15)
[2022-04-17] MEDS ORDERED: levoFLOXacin 500MG 100 ML IV SCH (06:15)
[2022-04-17 06:23] LABS: Albumin 3.7 g/dL (3.4-5.0); Anion Gap 6 (5-15); BUN/Creatinine Ratio 10.2; Blood Urea Nitrogen 10 mg/dL (7-18); Calcium 8.9 mg/dL (8.5-10.1); Carbon Dioxide 24 mmol/L (21-32); Chloride 113 mmol/L (98-107); GFR African American 98 mL/min; GFR Non-African American 81 mL/min; Glucose 101 mg/dL (74-106); Sodium 143 mmol/L (136-145)
[2022-04-17 06:37] LABS: Alanine Aminotransferase 38 U/L (16-61); Alkaline Phosphatase 124 U/L (45-117); Aspartate Aminotransferase 24 U/L (15-37); Bilirubin, Total 0.4 mg/dL (0.2-1.0); Total Protein 7.3 g/dL (6.4-8.2)
[2022-04-17] MEDS: MAGNESIUM SULFATE 1GM/100ML 100 ML IV SCH ×2 (06:45→08:46)
[2022-04-17] MEDS: levoFLOXacin 750MG 150 ML IV SCH (07:52)
[2022-04-17] MEDS ORDERED: VANCOMYCIN 1GM/250ML 250 ML IV ONE (08:00)
[2022-04-17] MEDS ORDERED: MORPHINE SULFATE INJ 2 MG/ml SYRG IV PRN (09:30)
[2022-04-17] MEDS ORDERED: PANTOPRAZOLE 40 MG/10 ML VIAL INJ IV ONE (09:30)
[2022-04-17] MEDS ORDERED: NITROGLYCERIN 0.4 MG SL TAB SL PRN (09:30)
[2022-04-17] MEDS ORDERED: ALBUTEROL SULF 2.5 MG/0.5ML(0.5%) NEB SOLN NEB PRN (09:30)
[2022-04-17] MEDS ORDERED: ENOXAPARIN SOD 40 MG/0.4 ML SYRINGE SC SCH (10:00)
[2022-04-17 10:25] LABS: Lactic Acid w/Reflex 2.2 mmol/L (0.4-2.0)
[2022-04-17] MEDS: PANTOPRAZOLE 40 MG/10 ML VIAL INJ IV SCH (10:46)
[2022-04-17] MEDS: methylPREDNISolone SOD SUCC 125 MG/2 ML VL IV SCH ×2 (10:47→22:27)
[2022-04-17] MEDS: IPRATROPIUM BROM 0.5 MG/2.5ML INH SOL NEB SCH ×4 (10:52→22:22)
[2022-04-17] MEDS: ALBUTEROL SULF 2.5 MG/0.5ML(0.5%) NEB SOLN NEB SCH ×4 (10:52→22:22)
[2022-04-17 11:49] LABS: Urine Bacteria NONE SEEN /hpf (None Seen); Urine Blood Negative /uL (Negative); Urine WBC <1 /hpf (0 - 3)
[2022-04-17] MEDS: PIPERACILLIN-TAZOB 3.375GM 100 ML IV SCH ×2 (12:46→18:10)
[2022-04-17] MEDS ORDERED: NICOTINE 21MG/24 HR TOPICAL PATCH TD ONE (13:00)
[2022-04-17] MEDS ORDERED: PIPERACILLIN-TAZO 4.5GM 100 ML IV SCH (14:00)
[2022-04-17 16:27] LABS: Lactic Acid w/Reflex 2.4 mmol/L (0.4-2.0)
[2022-04-17] MEDS ORDERED: APIXABAN 5 MG TAB PO SCH (22:00)
[2022-04-17 22:30] VITALS: BP 129/76
[2022-04-17] MEDS: VANCOMYCIN 1GM/250ML 250 ML IV SCH (23:03)
[2022-04-18] VITALS (15 sets, daily range): BP systolic 118–179; BP diastolic 66–98
[2022-04-18] MEDS: IPRATROPIUM BROM 0.5 MG/2.5ML INH SOL NEB SCH ×6 (01:28→22:03)
[2022-04-18] MEDS: ALBUTEROL SULF 2.5 MG/0.5ML(0.5%) NEB SOLN NEB SCH ×6 (01:28→22:02)
[2022-04-18] MEDS: PIPERACILLIN-TAZOB 3.375GM 100 ML IV SCH ×3 (01:47→08:35)
[2022-04-18] MEDS ORDERED: FUROSEMIDE 20 MG/2 ML VIAL IV ONE (02:45)
[2022-04-18] MEDS: ACETAMINOPHEN 325 MG TAB PO PRN (06:37)
[2022-04-18] MEDS: levoFLOXacin 750MG 150 ML IV SCH (06:43)
[2022-04-18 07:43] LABS: Albumin 3.5 g/dL (3.4-5.0); Calcium 8.8 mg/dL (8.5-10.1); Potassium 3.8 mmol/L (3.5-5.1)
[2022-04-18 07:47] LABS: BUN/Creatinine Ratio 9.6; Bilirubin, Total 0.4 mg/dL (0.2-1.0); Total Protein 6.9 g/dL (6.4-8.2)
[2022-04-18 07:50] LABS: Hematocrit 44.4 % (41.0-53.0); Hemoglobin 14.8 g/dL (13.5-17.5); Mean Corpuscular Hemoglobin 28.3 pg (28.0-32.0); Mean Corpuscular Hgb Conc. 33.4 g/dL (32.0-36.0); Mean Corpuscular Volume 84.7 fL (80.0-100.0); Red Blood Cells 5.24 10^6/uL (4.5-5.90); Red Cell Distribution Width 16.9 % (11.8-14.3); White Blood Cell 10.7 10^3/uL (4.4-10.8)
[2022-04-18 07:53] LABS: Basophils % (manual) 0 (0.0-2.0); Blast Cells 0; Eosinophils % (manual) 0 (0-7); Metamyelocytes % 0; Myelocytes % 0; Promyelocytes % 0; Reactive Lymphocytes 0
[2022-04-18 08:37] LABS: Band Neutrophils % (manual) 10; Lymphocytes % (manual) 5 (10.0-50.0); Monocytes % (manual) 3 (0-12)
[2022-04-18] MEDS ORDERED: amLODIPine BESYLATE 5 MG TAB PO SCH (10:00)
[2022-04-18] MEDS ORDERED: NICOTINE 21MG/24 HR TOPICAL PATCH TD SCH (10:00)
[2022-04-18] MEDS: methylPREDNISolone SOD SUCC 125 MG/2 ML VL IV SCH ×2 (10:58→20:54)
[2022-04-18] MEDS: VANCOMYCIN 1GM/250ML 250 ML IV SCH ×2 (10:58→22:23)
[2022-04-18] MEDS: PANTOPRAZOLE 40 MG/10 ML VIAL INJ IV SCH (10:58)
[2022-04-18] MEDS ORDERED: LORazepam 0.5 MG TAB PO ONE (11:45)
[2022-04-18] MEDS ORDERED: methylPREDNISolone SOD SUCC 125 MG/2 ML VL ONE (12:22)
[2022-04-18] MEDS ORDERED: LORazepam 2MG/ML-1ML VIAL ONE (12:24)
[2022-04-18] MEDS ORDERED: LORazepam 2MG/ML-1ML VIAL IV ONE (12:30)
[2022-04-18] MEDS ORDERED: methylPREDNISolone SOD SUCC 125 MG/2 ML VL IV ONE (12:30)
[2022-04-18] MEDS ORDERED: NICOTINE 21MG/24 HR TOPICAL PATCH TD ONE (13:45)
[2022-04-18] MEDS: PIPERACILLIN-TAZO 4.5GM 100 ML IV SCH ×2 (14:43→22:25)
[2022-04-18] MEDS: ENOXAPARIN SOD 80 MG/0.8ML SYRINGE SC SCH ×2 (14:43→22:25)
[2022-04-18] MEDS ORDERED: methylPREDNISolone SOD SUCC 125 MG/2 ML VL IV SCH (18:00)
[2022-04-19] VITALS (16 sets, daily range): BP systolic 119–216; BP diastolic 71–130
[2022-04-19] MEDS: LORazepam 2MG/ML-1ML VIAL IV PRN ×2 (01:35→09:38)
[2022-04-19] MEDS: ALBUTEROL SULF 2.5 MG/0.5ML(0.5%) NEB SOLN NEB SCH ×6 (02:07→22:10)
[2022-04-19] MEDS: IPRATROPIUM BROM 0.5 MG/2.5ML INH SOL NEB SCH ×6 (02:07→22:10)
[2022-04-19] MEDS ORDERED: hydrALAZINE HCL 20 MG/ML VL IV PRN (02:15)
[2022-04-19] MEDS ORDERED: hydrALAZINE HCL 20 MG/ML VL ONE (02:20)
[2022-04-19] MEDS: methylPREDNISolone SOD SUCC 125 MG/2 ML VL IV SCH ×3 (04:56→20:44)
[2022-04-19] MEDS: PIPERACILLIN-TAZO 4.5GM 100 ML IV SCH ×3 (06:12→22:28)
[2022-04-19] MEDS: levoFLOXacin 750MG 150 ML IV SCH (06:12)
[2022-04-19 07:10] LABS: Potassium 4.1 mmol/L (3.5-5.1)
[2022-04-19 07:23] LABS: BUN/Creatinine Ratio 13.8; Calcium 9.3 mg/dL (8.5-10.1)
[2022-04-19] MEDS: ACETAMINOPHEN 325 MG TAB PO PRN (07:40)
[2022-04-19 09:29] LABS: Hematocrit 47.6 % (41.0-53.0); Hemoglobin 15.5 g/dL (13.5-17.5); Mean Corpuscular Hemoglobin 27.9 pg (28.0-32.0); Mean Corpuscular Hgb Conc. 32.5 g/dL (32.0-36.0); Mean Corpuscular Volume 85.8 fL (80.0-100.0); Red Blood Cells 5.55 10^6/uL (4.5-5.90); Red Cell Distribution Width 17.1 % (11.8-14.3); White Blood Cell 17.8 10^3/uL (4.4-10.8)
[2022-04-19 09:34] LABS: Basophils % (manual) 0 (0.0-2.0); Blast Cells 0; Eosinophils % (manual) 0 (0-7); Metamyelocytes % 0; Myelocytes % 0; Promyelocytes % 0; Reactive Lymphocytes 0
[2022-04-19] MEDS: PANTOPRAZOLE 40 MG/10 ML VIAL INJ IV SCH (09:37)
[2022-04-19] MEDS: ENOXAPARIN SOD 80 MG/0.8ML SYRINGE SC SCH ×2 (09:38→22:29)
[2022-04-19] MEDS: VANCOMYCIN 1GM/250ML 250 ML IV SCH ×2 (09:39→22:28)
[2022-04-19] MEDS: NICOTINE 21MG/24 HR TOPICAL PATCH TD SCH (09:39)
[2022-04-19] MEDS ORDERED: FUROSEMIDE 20 MG/2 ML VIAL IV SCH (10:00)
[2022-04-19 10:25] LABS: Band Neutrophils % (manual) 29; Lymphocytes % (manual) 2 (10.0-50.0); Monocytes % (manual) 6 (0-12)
[2022-04-19] MEDS ORDERED: D5W/SOD CHL 0.45% 1,000 ML IV SCH (13:00)
[2022-04-19] MEDS ORDERED: DEXTROSE (50%) 50ML SYRG IV PRN (13:00)
[2022-04-19] MEDS ORDERED: SODIUM CHLORIDE 0.9% 500 ML IV ONE (13:00)
[2022-04-19] MEDS ORDERED: LORazepam 2MG/ML-1ML VIAL IV PRN (13:30)
[2022-04-19] MEDS ORDERED: LIDOCAINE 2%HCL (LOCAL ANESTH.) INJ 10ml MDV ID ONE (14:00)
[2022-04-19] MEDS: ACCU-CHEK COMFORT CURVE STRIP VI SCH (17:54)
[2022-04-19] MEDS: InsuLIN REG 1unit/0.01ml Soln (100units/ml) SC SCH (18:00)
[2022-04-19] MEDS: Ensure HIGH Protein Chocolate 8oz Bottle PO SCH (18:25)
[2022-04-19] MEDS: MORPHINE SULFATE INJ 2 MG/ml SYRG IV PRN (19:37)
[2022-04-19] MEDS: HYDROcodone-ACET 5/325MG TAB PO PRN (22:27)
[2022-04-20] VITALS (7 sets, daily range): BP systolic 121–165; BP diastolic 82–102
[2022-04-20] MEDS: InsuLIN REG 1unit/0.01ml Soln (100units/ml) SC SCH ×5 (00:35→23:47)
[2022-04-20] MEDS: IPRATROPIUM BROM 0.5 MG/2.5ML INH SOL NEB SCH ×6 (02:27→22:03)
[2022-04-20] MEDS: ALBUTEROL SULF 2.5 MG/0.5ML(0.5%) NEB SOLN NEB SCH ×6 (02:27→22:04)
[2022-04-20] MEDS: methylPREDNISolone SOD SUCC 125 MG/2 ML VL IV SCH ×3 (04:43→19:35)
[2022-04-20] MEDS: ACCU-CHEK COMFORT CURVE STRIP VI SCH ×5 (06:04→23:49)
[2022-04-20] MEDS: PIPERACILLIN-TAZO 4.5GM 100 ML IV SCH ×3 (06:04→21:38)
[2022-04-20] MEDS: levoFLOXacin 750MG 150 ML IV SCH (06:05)
[2022-04-20 06:14] LABS: Basophils # (auto) 0 10 ^3/uL (0-0.2); Basophils % (auto) 0.1 % (0.0-2.0); Eosinophils # (auto) 0 10 ^3/uL (0-0.8); Hematocrit 44.9 % (41.0-53.0); Hemoglobin 15.1 g/dL (13.5-17.5); Lymphocytes # (auto) 0.5 10 ^3/uL (0.4-5.4); Mean Corpuscular Hemoglobin 28.4 pg (28.0-32.0); Mean Corpuscular Hgb Conc. 33.6 g/dL (32.0-36.0); Mean Corpuscular Volume 84.6 fL (80.0-100.0); Monocytes # (auto) 0.8 10 ^3/uL (0-1.3); Monocytes % (auto) 5.1 % (0.0-12.0); Neutrophils # (auto) 14.6 10 ^3/uL (1.6-8.6); Neutrophils % (auto) 91.8 % (37.0-80.0); Red Blood Cells 5.31 10^6/uL (4.5-5.90); Red Cell Distribution Width 16.8 % (11.8-14.3); White Blood Cell 15.9 10^3/uL (4.4-10.8)
[2022-04-20 06:34] LABS: Albumin 3.2 g/dL (3.4-5.0); Calcium 9.2 mg/dL (8.5-10.1); Potassium 4.8 mmol/L (3.5-5.1)
[2022-04-20 06:39] LABS: Bilirubin, Total 0.7 mg/dL (0.2-1.0); Total Protein 6.5 g/dL (6.4-8.2)
[2022-04-20] MEDS: HYDROcodone-ACET 5/325MG TAB PO PRN ×3 (07:33→19:33)
[2022-04-20] MEDS: Ensure HIGH Protein Chocolate 8oz Bottle PO SCH ×3 (08:00→18:00)
[2022-04-20] MEDS: VANCOMYCIN 1GM/250ML 250 ML IV SCH ×2 (09:46→21:31)
[2022-04-20] MEDS: ENOXAPARIN SOD 80 MG/0.8ML SYRINGE SC SCH ×2 (09:47→21:31)
[2022-04-20] MEDS: NICOTINE 21MG/24 HR TOPICAL PATCH TD SCH (09:47)
[2022-04-20] MEDS: PANTOPRAZOLE 40 MG/10 ML VIAL INJ IV SCH (09:47)
[2022-04-20] MEDS ORDERED: D5W/SOD CHL 0.45% 1,000 ML IV SCH (11:30)
[2022-04-20] MEDS ORDERED: INSULIN LANTUS (GLARGINE) 1 /0.01ml (100units/ml) SC ONE (11:30)
[2022-04-20] MEDS ORDERED: amLODIPine BESYLATE 5 MG TAB PO ONE (11:45)
[2022-04-20 11:55] LABS: Hepatitis C Antibody Negative (Negative)
[2022-04-20] MEDS: SODIUM CHLORIDE 0.9% 1,000 ML IV SCH (11:59)
[2022-04-21] VITALS: BP 118/56
[2022-04-21] MEDS: SODIUM CHLORIDE 0.9% 1,000 ML IV SCH ×2 (01:05→13:25)
[2022-04-21] MEDS: HYDROcodone-ACET 5/325MG TAB PO PRN ×4 (01:33→19:14)
[2022-04-21] MEDS: ALBUTEROL SULF 2.5 MG/0.5ML(0.5%) NEB SOLN NEB SCH ×6 (01:45→22:05)
[2022-04-21] MEDS: IPRATROPIUM BROM 0.5 MG/2.5ML INH SOL NEB SCH ×6 (01:45→22:05)
[2022-04-21] MEDS: methylPREDNISolone SOD SUCC 125 MG/2 ML VL IV SCH ×3 (03:42→19:33)
[2022-04-21 04:00] VITALS: BP 120/75
[2022-04-21] MEDS: levoFLOXacin 750MG 150 ML IV SCH (05:15)
[2022-04-21 05:16] LABS: Basophils # (auto) 0 10 ^3/uL (0-0.2); Eosinophils # (auto) 0 10 ^3/uL (0-0.8); Hematocrit 45.5 % (41.0-53.0); Lymphocytes # (auto) 0.5 10 ^3/uL (0.4-5.4); Lymphocytes % (auto) 3.8 % (10.0-50.0); Mean Corpuscular Hgb Conc. 32.9 g/dL (32.0-36.0); Mean Corpuscular Volume 84.9 fL (80.0-100.0); Monocytes # (auto) 0.6 10 ^3/uL (0-1.3); Monocytes % (auto) 4.8 % (0.0-12.0); Neutrophils # (auto) 11.5 10 ^3/uL (1.6-8.6); Neutrophils % (auto) 91.4 % (37.0-80.0); Nucleated Red Blood Cells % 0.1 %; Red Blood Cells 5.36 10^6/uL (4.5-5.90); Red Cell Distribution Width 16.8 % (11.8-14.3); White Blood Cell 12.6 10^3/uL (4.4-10.8)
[2022-04-21 05:34] LABS: Albumin 3.1 g/dL (3.4-5.0); BUN/Creatinine Ratio 20.6; Bilirubin, Total 0.6 mg/dL (0.2-1.0); Potassium 4.3 mmol/L (3.5-5.1); Total Protein 6.1 g/dL (6.4-8.2)
[2022-04-21] MEDS: ACCU-CHEK COMFORT CURVE STRIP VI SCH ×4 (05:44→23:39)
[2022-04-21] MEDS: InsuLIN REG 1unit/0.01ml Soln (100units/ml) SC SCH ×4 (05:52→23:37)
[2022-04-21] MEDS: PIPERACILLIN-TAZO 4.5GM 100 ML IV SCH ×3 (06:24→22:13)
[2022-04-21 09:00] VITALS: BP 130/83
[2022-04-21] MEDS: ENOXAPARIN SOD 80 MG/0.8ML SYRINGE SC SCH ×2 (10:00→21:45)
[2022-04-21] MEDS: MORPHINE SULFATE INJ 2 MG/ml SYRG IV PRN (10:00)
[2022-04-21] MEDS: VANCOMYCIN 1GM/250ML 250 ML IV SCH ×2 (10:02→21:45)
[2022-04-21] MEDS: amLODIPine BESYLATE 5 MG TAB PO SCH (10:02)
[2022-04-21] MEDS: PANTOPRAZOLE 40 MG TAB PO SCH (10:02)
[2022-04-21] MEDS: NICOTINE 21MG/24 HR TOPICAL PATCH TD SCH (10:24)
[2022-04-21] MEDS: Glucerna Carbsteady SHAKE Vanilla 8oz PO SCH ×2 (11:35→17:40)
[2022-04-21 12:00] VITALS: BP 133/89
[2022-04-21 16:00] VITALS: BP 147/79
[2022-04-21 20:00] VITALS: BP 121/79
[2022-04-22] VITALS (7 sets, daily range): BP systolic 121–136; BP diastolic 67–82
[2022-04-22] MEDS: IPRATROPIUM BROM 0.5 MG/2.5ML INH SOL NEB SCH ×6 (02:01→22:10)
[2022-04-22] MEDS: ALBUTEROL SULF 2.5 MG/0.5ML(0.5%) NEB SOLN NEB SCH ×6 (02:01→22:10)
[2022-04-22] MEDS: SODIUM CHLORIDE 0.9% 1,000 ML IV SCH ×2 (02:46→18:38)
[2022-04-22] MEDS: methylPREDNISolone SOD SUCC 125 MG/2 ML VL IV SCH ×3 (03:30→20:29)
[2022-04-22 05:30] LABS: Basophils # (auto) 0 10 ^3/uL (0-0.2); Basophils % (auto) 0.1 % (0.0-2.0); Eosinophils # (auto) 0 10 ^3/uL (0-0.8); Hemoglobin 14.4 g/dL (13.5-17.5); Lymphocytes # (auto) 0.4 10 ^3/uL (0.4-5.4); Lymphocytes % (auto) 3.8 % (10.0-50.0); Mean Corpuscular Hemoglobin 28.1 pg (28.0-32.0); Mean Corpuscular Hgb Conc. 33.4 g/dL (32.0-36.0); Mean Corpuscular Volume 84.2 fL (80.0-100.0); Monocytes # (auto) 0.7 10 ^3/uL (0-1.3); Monocytes % (auto) 5.8 % (0.0-12.0); Neutrophils # (auto) 10.5 10 ^3/uL (1.6-8.6); Neutrophils % (auto) 90.3 % (37.0-80.0); Red Blood Cells 5.11 10^6/uL (4.5-5.90); Red Cell Distribution Width 16.1 % (11.8-14.3); White Blood Cell 11.7 10^3/uL (4.4-10.8)
[2022-04-22 05:47] LABS: Potassium 4.4 mmol/L (3.5-5.1)
[2022-04-22 05:54] LABS: Albumin 2.9 g/dL (3.4-5.0); BUN/Creatinine Ratio 19.1; Bilirubin, Total 0.6 mg/dL (0.2-1.0); Calcium 9.1 mg/dL (8.5-10.1); Total Protein 5.9 g/dL (6.4-8.2)
[2022-04-22] MEDS: levoFLOXacin 750MG 150 ML IV SCH (05:55)
[2022-04-22] MEDS: ACCU-CHEK COMFORT CURVE STRIP VI SCH ×3 (06:14→18:39)
[2022-04-22] MEDS: InsuLIN REG 1unit/0.01ml Soln (100units/ml) SC SCH ×3 (06:19→18:00)
[2022-04-22] MEDS: PIPERACILLIN-TAZO 4.5GM 100 ML IV SCH ×3 (06:30→22:30)
[2022-04-22] MEDS: Glucerna Carbsteady SHAKE Vanilla 8oz PO SCH ×3 (08:00→18:39)
[2022-04-22] MEDS: VANCOMYCIN 1GM/250ML 250 ML IV SCH ×2 (10:13→21:27)
[2022-04-22] MEDS: NICOTINE 21MG/24 HR TOPICAL PATCH TD SCH (10:14)
[2022-04-22] MEDS: PANTOPRAZOLE 40 MG TAB PO SCH (10:14)
[2022-04-22] MEDS: amLODIPine BESYLATE 5 MG TAB PO SCH (10:14)
[2022-04-22] MEDS: ENOXAPARIN SOD 80 MG/0.8ML SYRINGE SC SCH ×2 (10:14→21:27)
[2022-04-23] VITALS (9 sets, daily range): BP systolic 112–128; BP diastolic 62–80
[2022-04-23] MEDS: ACCU-CHEK COMFORT CURVE STRIP VI SCH ×2 (00:30→05:29)
[2022-04-23] MEDS: InsuLIN REG 1unit/0.01ml Soln (100units/ml) SC SCH ×2 (00:31→05:29)
[2022-04-23] MEDS: IPRATROPIUM BROM 0.5 MG/2.5ML INH SOL NEB SCH ×3 (02:04→10:33)
[2022-04-23] MEDS: ALBUTEROL SULF 2.5 MG/0.5ML(0.5%) NEB SOLN NEB SCH ×3 (02:04→10:33)
[2022-04-23] MEDS: methylPREDNISolone SOD SUCC 125 MG/2 ML VL IV SCH (03:32)
[2022-04-23] MEDS: PIPERACILLIN-TAZO 4.5GM 100 ML IV SCH (05:34)
[2022-04-23 05:42] LABS: Basophils # (auto) 0 10 ^3/uL (0-0.2); Basophils % (auto) 0.2 % (0.0-2.0); Eosinophils # (auto) 0 10 ^3/uL (0-0.8); Hematocrit 43.8 % (41.0-53.0); Hemoglobin 14.7 g/dL (13.5-17.5); Lymphocytes # (auto) 0.4 10 ^3/uL (0.4-5.4); Lymphocytes % (auto) 3.7 % (10.0-50.0); Mean Corpuscular Hemoglobin 28.4 pg (28.0-32.0); Mean Corpuscular Hgb Conc. 33.6 g/dL (32.0-36.0); Mean Corpuscular Volume 84.6 fL (80.0-100.0); Monocytes # (auto) 0.4 10 ^3/uL (0-1.3); Monocytes % (auto) 3.5 % (0.0-12.0); Neutrophils # (auto) 9.8 10 ^3/uL (1.6-8.6); Neutrophils % (auto) 92.6 % (37.0-80.0); Red Blood Cells 5.18 10^6/uL (4.5-5.90); Red Cell Distribution Width 15.9 % (11.8-14.3); White Blood Cell 10.6 10^3/uL (4.4-10.8)
[2022-04-23 06:00] LABS: Albumin 2.9 g/dL (3.4-5.0); Calcium 9.3 mg/dL (8.5-10.1); Potassium 4.6 mmol/L (3.5-5.1)
[2022-04-23 06:02] LABS: BUN/Creatinine Ratio 17.4
[2022-04-23 06:04] LABS: Bilirubin, Total 0.6 mg/dL (0.2-1.0)
[2022-04-23] MEDS: SODIUM CHLORIDE 0.9% 1,000 ML IV SCH (06:25)
[2022-04-23] MEDS: levoFLOXacin 750MG 150 ML IV SCH (06:38)
[2022-04-23] MEDS: Glucerna Carbsteady SHAKE Vanilla 8oz PO SCH (08:00)
[2022-04-23] MEDS: VANCOMYCIN 1GM/250ML 250 ML IV SCH (10:55)
[2022-04-23] MEDS: amLODIPine BESYLATE 5 MG TAB PO SCH (10:55)
[2022-04-23] MEDS: NICOTINE 21MG/24 HR TOPICAL PATCH TD SCH (10:56)
[2022-04-23] MEDS: ENOXAPARIN SOD 80 MG/0.8ML SYRINGE SC SCH (10:56)
[2022-04-23] MEDS: PANTOPRAZOLE 40 MG TAB PO SCH (10:56)
[2022-04-23] MEDS ORDERED: ALBUAER3 IN ×2 (11:02)
[2022-04-23] MEDS ORDERED: PRED20TA2 PO (11:02)
== END 2022-04-23 12:41 | disposition home or self-care (01) | DRG 720 ==
LOC: EDBD 04:49 → ER 04:49 → TELE 09:28 → TELE-EAST 23:18 → DOU IN ICU 04-18 12:39
PROVIDERS: ADMIT Nurse Practitioner Family; ATTEND Internal Medicine Pulmonary Disease
PROC: 5A09357 Assistance with Respiratory Ventilation, Less than 24 Consecutive Hours, Continuous Positive Airway Pressure (ICD-10-PCS; 2022-04-17)
PROC: 5A09357 Assistance with Respiratory Ventilation, Less than 24 Consecutive Hours, Continuous Positive Airway Pressure (ICD-10-PCS; 2022-04-17)
PROC: 0W9B30Z Drainage of Left Pleural Cavity with Drainage Device, Percutaneous Approach (ICD-10-PCS; principal; 2022-04-19)
PROC: 0W9B30Z Drainage of Left Pleural Cavity with Drainage Device, Percutaneous Approach (ICD-10-PCS; 2022-04-19)
PROC: 05HB33Z Insertion of Infusion Device into Right Basilic Vein, Percutaneous Approach (ICD-10-PCS; 2022-04-22)
PROC: B54MZZA Ultrasonography of Right Upper Extremity Veins, Guidance (ICD-10-PCS; 2022-04-22)
DX: A41.9 Sepsis, unspecified organism (principal); J96.01 Acute respiratory failure with hypoxia; N17.9 Acute kidney failure, unspecified; J18.9 Pneumonia, unspecified organism; J90 Pleural effusion, not elsewhere classified; J44.0 Chronic obstructive pulmonary disease with (acute) lower respiratory infection; Z20.822 Contact with and (suspected) exposure to COVID-19; J44.1 Chronic obstructive pulmonary disease with (acute) exacerbation; I10 Essential (primary) hypertension; J98.11 Atelectasis; F17.210 Nicotine dependence, cigarettes, uncomplicated; J93.9 Pneumothorax, unspecified; E86.0 Dehydration; I25.10 Atherosclerotic heart disease of native coronary artery without angina pectoris; R73.03 Prediabetes; T38.0X5A Adverse effect of glucocorticoids and synthetic analogues, initial encounter; Z86.73 Personal history of transient ischemic attack (TIA), and cerebral infarction without residual deficits; Z86.711 Personal history of pulmonary embolism; Z85.118 Personal history of other malignant neoplasm of bronchus and lung; Z86.16 Personal history of COVID-19; Z80.42 Family history of malignant neoplasm of prostate; Z82.0 Family history of epilepsy and other diseases of the nervous system; Z79.01 Long term (current) use of anticoagulants; I25.2 Old myocardial infarction; Y92.89 Other specified places as the place of occurrence of the external cause; Z71.6 Tobacco abuse counseling
CPT/HCPCS: 36415; 36600; 71045; 80048; 80053; 80202; 81001; 82805; 82962; 83036; 83605; 83880; 84484; 85007; 85025; 85027; 85379; 86803; 87040; 87070; 87081; 87086; 87205; 87340; 87426; 87804; 93005; 94640; 94660; 96361; 96365; 96366; 96367; 96375; 99291; C9113; G0378; J1956; J2001; J2543

== ENCOUNTER 2022-07-29 06:35 | Inpatient (IN) | payer MEDICARE, MEDICAID ==
[~2022-07-29] VITALS: Ht 165.1 cm; Wt 68.6 kg
[~2022-07-29 06:35] MED LIST changes: +ALB5IS NEB; +ALBU0.084 NEB; -AMLO-496 PO; +AMLO1TAB23 PO; -AZIT500T PO; +IPRA0.00 IN; +PRED1PAK9 PO; +RESPMIS2 XX
[2022-07-29] MEDS ORDERED: methylPREDNISolone SOD SUCC 125 MG/2 ML VL IV ONE (07:30)
[2022-07-29] MEDS ORDERED: IPRATROPIUM BROM 0.5 MG/2.5ML INH SOL NEB ONE (07:30)
[2022-07-29] MEDS ORDERED: ALBUTEROL SULF 2.5 MG/0.5ML(0.5%) NEB SOLN NEB ONE (07:30)
[2022-07-29 08:19] LABS: Basophils # (auto) 0.1 10 ^3/uL (0-0.2); Basophils % (auto) 1.1 % (0.0-2.0); Eosinophils # (auto) 0.9 10 ^3/uL (0-0.8); Eosinophils % (auto) 9.5 % (0.0-7.0); Hematocrit 47.8 % (41.0-53.0); Lymphocytes # (auto) 1.6 10 ^3/uL (0.4-5.4); Lymphocytes % (auto) 17.3 % (10.0-50.0); Mean Corpuscular Hemoglobin 28.1 pg (28.0-32.0); Mean Corpuscular Hgb Conc. 33.4 g/dL (32.0-36.0); Mean Corpuscular Volume 84.1 fL (80.0-100.0); Monocytes # (auto) 0.7 10 ^3/uL (0-1.3); Monocytes % (auto) 7.9 % (0.0-12.0); Neutrophils # (auto) 5.8 10 ^3/uL (1.6-8.6); Neutrophils % (auto) 64.2 % (37.0-80.0); Nucleated Red Blood Cells % 0.2 %; Red Blood Cells 5.69 10^6/uL (4.5-5.90); Red Cell Distribution Width 15.6 % (11.8-14.3)
[2022-07-29 08:30] LABS: Albumin 3.9 g/dL (3.4-5.0); Calcium 9.3 mg/dL (8.5-10.1); Magnesium 2.6 mg/dL (1.6-2.6); Potassium 4.6 mmol/L (3.5-5.1)
[2022-07-29 08:33] LABS: BUN/Creatinine Ratio 6.5 (10.0-20.0); Bilirubin, Total 0.4 mg/dL (0.2-1.0); Total Protein 7.3 g/dL (6.4-8.2)
[2022-07-29] MEDS ORDERED: ONDANSETRON HCL 4 MG/2 ML VIAL IV PRN (11:15)
[2022-07-29] MEDS ORDERED: DOCUSATE SOD 100 MG CAP PO PRN (11:15)
[2022-07-29] MEDS ORDERED: hydrALAZINE HCL 20 MG/ML VL IV PRN (11:15)
[2022-07-29] MEDS ORDERED: MORPHINE SULFATE INJ 2 MG/ml SYRG IV PRN (11:15)
[2022-07-29 13:53] VITALS: PULSE 80; RESP 18; O2SAT 99
[2022-07-29] MEDS: IPRATROPIUM BROM 0.5 MG/2.5ML INH SOL NEB SCH ×3 (13:53→22:52)
[2022-07-29] MEDS: ALBUTEROL SULF 2.5 MG/0.5ML(0.5%) NEB SOLN NEB SCH ×3 (13:53→22:52)
[2022-07-29 14:00] VITALS: PULSE 73; RESP 18; O2SAT 99
[2022-07-29 14:30] LABS: Base Excess -1.1 mmol/L (-2.0-2.0)
[2022-07-29 15:32] VITALS: BP 164/94; PULSE 73; RESP 18; TEMP 97.8; O2SAT 99
[2022-07-29] MEDS: methylPREDNISolone SOD SUCC 125 MG/2 ML VL IV SCH (16:49)
[2022-07-29 19:33] VITALS: PULSE 79; RESP 20; O2SAT 95
[2022-07-30] VITALS (16 sets, daily range): BP systolic 132–142; BP diastolic 70–74; PULSE 79–101; RESP 17–20; TEMP 97.4–98.5; O2SAT 1–100
[2022-07-30] MEDS: APIXABAN 5 MG TAB PO SCH ×3 (00:47→23:19)
[2022-07-30] MEDS: methylPREDNISolone SOD SUCC 125 MG/2 ML VL IV SCH ×4 (00:47→23:19)
[2022-07-30] MEDS: IPRATROPIUM BROM 0.5 MG/2.5ML INH SOL NEB SCH ×6 (02:15→22:23)
[2022-07-30] MEDS: ALBUTEROL SULF 2.5 MG/0.5ML(0.5%) NEB SOLN NEB SCH ×6 (02:15→22:23)
[2022-07-30 07:39] LABS: Potassium 4.4 mmol/L (3.5-5.1)
[2022-07-30 07:54] LABS: Albumin 3.8 g/dL (3.4-5.0); BUN/Creatinine Ratio 13.9 (10.0-20.0); Bilirubin, Total 0.4 mg/dL (0.2-1.0); Calcium 9.2 mg/dL (8.5-10.1); Total Protein 7.4 g/dL (6.4-8.2)
[2022-07-30 07:56] LABS: Basophils # (auto) 0 10 ^3/uL (0-0.2); Basophils % (auto) 0.1 % (0.0-2.0); Eosinophils # (auto) 0 10 ^3/uL (0-0.8); Hematocrit 46.9 % (41.0-53.0); Hemoglobin 15.2 g/dL (13.5-17.5); Lymphocytes # (auto) 0.9 10 ^3/uL (0.4-5.4); Lymphocytes % (auto) 9.5 % (10.0-50.0); Mean Corpuscular Hemoglobin 27.3 pg (28.0-32.0); Mean Corpuscular Hgb Conc. 32.5 g/dL (32.0-36.0); Monocytes # (auto) 0.2 10 ^3/uL (0-1.3); Monocytes % (auto) 2.7 % (0.0-12.0); Neutrophils # (auto) 8.2 10 ^3/uL (1.6-8.6); Neutrophils % (auto) 87.7 % (37.0-80.0); Nucleated Red Blood Cells % 0.1 %; Red Blood Cells 5.58 10^6/uL (4.5-5.90); Red Cell Distribution Width 15.7 % (11.8-14.3); White Blood Cell 9.3 10^3/uL (4.4-10.8)
[2022-07-30] MEDS ORDERED: PATIENTS OWN MEDICATION (Tiotropium Bromide Monohydrate (Spiriva Handihaler) 18 MCG) IN SCH (10:00)
[2022-07-30] MEDS: PANTOPRAZOLE 40 MG/10 ML VIAL INJ IV SCH (11:26)
[2022-07-30] MEDS: amLODIPine BESYLATE 5 MG TAB PO SCH (11:35)
[2022-07-30] MEDS: NICOTINE 21MG/24 HR TOPICAL PATCH TD SCH (11:37)
[2022-07-31] VITALS (19 sets, daily range): BP systolic 115–141; BP diastolic 61–80; PULSE 61–102; RESP 17–24; TEMP 97.6–98.4; O2SAT 92–100
[2022-07-31] MEDS: ALBUTEROL SULF 2.5 MG/0.5ML(0.5%) NEB SOLN NEB SCH ×6 (02:28→22:06)
[2022-07-31] MEDS: IPRATROPIUM BROM 0.5 MG/2.5ML INH SOL NEB SCH ×6 (02:28→22:06)
[2022-07-31] MEDS: methylPREDNISolone SOD SUCC 125 MG/2 ML VL IV SCH ×3 (05:28→22:17)
[2022-07-31 07:10] LABS: BUN/Creatinine Ratio 14.4 (10.0-20.0); Potassium 4.5 mmol/L (3.5-5.1)
[2022-07-31 07:25] LABS: Hematocrit 44.2 % (41.0-53.0); Hemoglobin 14.3 g/dL (13.5-17.5); Mean Corpuscular Hgb Conc. 32.3 g/dL (32.0-36.0); Mean Corpuscular Volume 83.7 fL (80.0-100.0); Red Blood Cells 5.29 10^6/uL (4.5-5.90); Red Cell Distribution Width 16.3 % (11.8-14.3); White Blood Cell 15.5 10^3/uL (4.4-10.8)
[2022-07-31 07:49] LABS: Basophils % (manual) 0 (0.0-2.0); Blast Cells 0; Eosinophils % (manual) 0 (0-7); Metamyelocytes % 0; Myelocytes % 0; Promyelocytes % 0; Reactive Lymphocytes 0
[2022-07-31] MEDS ORDERED: cefTRIAXone 1GM/50ML D5W 50 ML IV SCH (09:00)
[2022-07-31] MEDS: APIXABAN 5 MG TAB PO SCH ×2 (09:14→22:17)
[2022-07-31] MEDS: PANTOPRAZOLE 40 MG/10 ML VIAL INJ IV SCH (09:14)
[2022-07-31] MEDS: amLODIPine BESYLATE 5 MG TAB PO SCH (09:17)
[2022-07-31] MEDS: NICOTINE 21MG/24 HR TOPICAL PATCH TD SCH (09:28)
[2022-07-31] MEDS ORDERED: AZITHROMYCIN 500MG/ 250ML 250 ML IV SCH (10:00)
[2022-07-31] MEDS ORDERED: ACETYLCYSTEINE 10 %(100MG/ML) SOL 4ML NEB ONE (10:30)
[2022-07-31] MEDS ORDERED: PIPERACILLIN-TAZOB 3.375GM 100 ML IV ONE (10:30)
[2022-07-31 11:01] LABS: Band Neutrophils % (manual) 2; Lymphocytes % (manual) 6 (10.0-50.0); Monocytes % (manual) 2 (0-12)
[2022-07-31 11:02] LABS: Anisocytosis Slight; Platelet Estimate Adequate
[2022-07-31] MEDS: ACETYLCYSTEINE 10 %(100MG/ML) SOL 4ML NEB SCH ×3 (14:17→22:06)
[2022-07-31] MEDS: PIPERACILLIN-TAZOB 3.375GM 100 ML IV SCH (18:45)
[2022-08-01] VITALS (15 sets, daily range): BP systolic 124–139; BP diastolic 72–83; PULSE 72–96; RESP 16–20; TEMP 37.1; O2SAT 91–100
[2022-08-01] MEDS: PIPERACILLIN-TAZOB 3.375GM 100 ML IV SCH ×2 (02:06→09:08)
[2022-08-01] MEDS: ALBUTEROL SULF 2.5 MG/0.5ML(0.5%) NEB SOLN NEB SCH ×4 (02:18→14:50)
[2022-08-01] MEDS: IPRATROPIUM BROM 0.5 MG/2.5ML INH SOL NEB SCH ×4 (02:18→14:50)
[2022-08-01] MEDS: ACETYLCYSTEINE 10 %(100MG/ML) SOL 4ML NEB SCH ×4 (02:18→14:52)
[2022-08-01] MEDS: methylPREDNISolone SOD SUCC 125 MG/2 ML VL IV SCH ×2 (05:20→15:44)
[2022-08-01] MEDS: APIXABAN 5 MG TAB PO SCH (09:07)
[2022-08-01] MEDS: PANTOPRAZOLE 40 MG/10 ML VIAL INJ IV SCH (09:07)
[2022-08-01] MEDS: amLODIPine BESYLATE 5 MG TAB PO SCH (09:07)
[2022-08-01] MEDS: NICOTINE 21MG/24 HR TOPICAL PATCH TD SCH (09:08)
[2022-08-01] MEDS ORDERED: RESPMIS2 XX (09:46)
[2022-08-01] MEDS ORDERED: PRED20TA2 PO (09:46)
[2022-08-01] MEDS ORDERED: LEVO500T91 PO (09:46)
[2022-08-01] MEDS ORDERED: ACE104IS NEB (09:46)
[2022-08-01] MEDS ORDERED: NIC21P TOP (09:46)
[2022-08-01 14:02] LABS: Basophils # (auto) 0 10 ^3/uL (0-0.2); Basophils % (auto) 0.2 % (0.0-2.0); Eosinophils # (auto) 0 10 ^3/uL (0-0.8); Eosinophils % (auto) 0.1 % (0.0-7.0); Lymphocytes # (auto) 0.3 10 ^3/uL (0.4-5.4); Monocytes # (auto) 0.7 10 ^3/uL (0-1.3); Neutrophils # (auto) 13.2 10 ^3/uL (1.6-8.6); White Blood Cell 14.2 10^3/uL (4.4-10.8)
[2022-08-01 14:06] LABS: Hematocrit 50.7 % (41.0-53.0); Hemoglobin 16.3 g/dL (13.5-17.5); Lymphocytes % (auto) 2.2 % (10.0-50.0); Mean Corpuscular Hemoglobin 27.3 pg (28.0-32.0); Mean Corpuscular Hgb Conc. 32.1 g/dL (32.0-36.0); Monocytes % (auto) 4.7 % (0.0-12.0); Neutrophils % (auto) 92.8 % (37.0-80.0); Nucleated Red Blood Cells % 0.1 %; Red Blood Cells 5.96 10^6/uL (4.5-5.90); Red Cell Distribution Width 16.4 % (11.8-14.3)
[2022-08-01 14:18] LABS: Calcium 9.2 mg/dL (8.5-10.1); Potassium 4.4 mmol/L (3.5-5.1)
== END 2022-08-01 16:30 | disposition home or self-care (01) | DRG 133 ==
LOC: EDBD 06:35 → ER 06:35 → EDUNIT# 06:35 → TELE 11:24 → TELE-WESTW 07-30 11:05
PROVIDERS: ADMIT Nurse Practitioner Family; ATTEND Internal Medicine Pulmonary Disease
DX: J96.01 Acute respiratory failure with hypoxia (principal); N17.0 Acute kidney failure with tubular necrosis; J69.0 Pneumonitis due to inhalation of food and vomit; J44.1 Chronic obstructive pulmonary disease with (acute) exacerbation; J45.901 Unspecified asthma with (acute) exacerbation; T17.990A Other foreign object in respiratory tract, part unspecified in causing asphyxiation, initial encounter; I10 Essential (primary) hypertension; F17.210 Nicotine dependence, cigarettes, uncomplicated; Z85.118 Personal history of other malignant neoplasm of bronchus and lung; Z86.73 Personal history of transient ischemic attack (TIA), and cerebral infarction without residual deficits; X58.XXXA Exposure to other specified factors, initial encounter; Y93.89 Activity, other specified; Y92.89 Other specified places as the place of occurrence of the external cause; Y99.8 Other external cause status
CPT/HCPCS: 36415; 36600; 71045; 71250; 80048; 80053; 82805; 83735; 83880; 84484; 85007; 85025; 85027; 94640; 96374; 99291; C9113; G0378; J0696; J2543

== ENCOUNTER 2022-09-22 20:11 | Inpatient (IN) | payer MEDICARE, MEDICAID ==
[~2022-09-22] VITALS: Ht 165.1 cm; Wt 68.2 kg
[~2022-09-22 20:11] MED LIST changes: +ACE104IS NEB; -ALBU0.084 NEB; -ALBU108A5 IN; -AMOX500T86 PO; -AZIT500T66 PO; +LEVO500T91 PO; -NICO1DIS30 TD; -OME20T PO; -PRED1PAK9 PO
[2022-09-22 21:53] LABS: Albumin 3.8 g/dL (3.4-5.0); Calcium 9.2 mg/dL (8.5-10.1); Potassium 4.1 mmol/L (3.5-5.1)
[2022-09-22 21:57] LABS: Basophils # (auto) 0.1 10 ^3/uL (0-0.2); Basophils % (auto) 1.3 % (0.0-2.0); Eosinophils # (auto) 0.7 10 ^3/uL (0-0.8); Eosinophils % (auto) 8.5 % (0.0-7.0); Hematocrit 47.9 % (41.0-53.0); Hemoglobin 15.8 g/dL (13.5-17.5); Lymphocytes # (auto) 1.7 10 ^3/uL (0.4-5.4); Lymphocytes % (auto) 20.7 % (10.0-50.0); Mean Corpuscular Hemoglobin 27.2 pg (28.0-32.0); Mean Corpuscular Volume 82.6 fL (80.0-100.0); Monocytes # (auto) 0.7 10 ^3/uL (0-1.3); Monocytes % (auto) 8.9 % (0.0-12.0); Neutrophils # (auto) 4.9 10 ^3/uL (1.6-8.6); Neutrophils % (auto) 60.6 % (37.0-80.0); Nucleated Red Blood Cells % 0.1 %; Red Blood Cells 5.81 10^6/uL (4.5-5.90); Red Cell Distribution Width 16.6 % (11.8-14.3); White Blood Cell 8.1 10^3/uL (4.4-10.8)
[2022-09-22 22:02] LABS: BUN/Creatinine Ratio 8.2 (10.0-20.0); Bilirubin, Total 0.3 mg/dL (0.2-1.0)
[2022-09-22 22:13] LABS: INR 1.02 (0.9-1.15); Partial Thromboplastin Time 26.5 SEC (24.5-34.5); Prothrombin Time 10.7 sec (9.3-11.8)
[2022-09-23] VITALS (7 sets, daily range): BP systolic 143–155; BP diastolic 83–89; PULSE 70–87; RESP 14–20; TEMP 97.8–98.8; O2SAT 93–100
[2022-09-23] MEDS ORDERED: ALBUTEROL SULF 2.5 MG/0.5ML(0.5%) NEB SOLN NEB ONE (01:15)
[2022-09-23] MEDS ORDERED: MORPHINE SULFATE INJ 2 MG/ml SYRG IV PRN (03:00)
[2022-09-23] MEDS ORDERED: HYDROcodone-ACET 5/325MG TAB PO PRN (03:00)
[2022-09-23] MEDS ORDERED: ACETAMINOPHEN 325 MG TAB PO PRN (03:00)
[2022-09-23] MEDS ORDERED: NITROGLYCERIN 0.4 MG SL TAB SL PRN (03:00)
[2022-09-23] MEDS ORDERED: ONDANSETRON HCL 4 MG/2 ML VIAL IV PRN (03:00)
[2022-09-23] MEDS: AZITHROMYCIN 500MG/ 250ML 250 ML IV SCH (04:42)
[2022-09-23 07:16] LABS: Urine Bacteria NONE SEEN /hpf (None Seen); Urine Blood Negative /uL (Negative); Urine Clarity Clear (Clear); Urine Color Colorless (Yellow); Urine Protein, UAD Negative (Negative); Urine Specific Gravity 1.008 (1.001-1.035); Urine Urobilinogen Normal (Negative); Urine WBC 2 /hpf (0 - 3); Urine pH 6.5 (5.0-8.0)
[2022-09-23] MEDS: IPRATROPIUM BROM 0.5 MG/2.5ML INH SOL NEB PRN ×2 (09:50→18:00)
[2022-09-23] MEDS: ALBUTEROL SULF 2.5 MG/0.5ML(0.5%) NEB SOLN NEB PRN ×2 (09:50→18:00)
[2022-09-23 10:19] LABS: Base Excess -0.3 mmol/L (-2.0-2.0)
[2022-09-23 10:36] LABS: Basophils # (auto) 0 10 ^3/uL (0-0.2); Basophils % (auto) 0.3 % (0.0-2.0); Eosinophils # (auto) 0.8 10 ^3/uL (0-0.8); Eosinophils % (auto) 8.6 % (0.0-7.0); Hematocrit 44.9 % (41.0-53.0); Hemoglobin 14.6 g/dL (13.5-17.5); Lymphocytes # (auto) 1.3 10 ^3/uL (0.4-5.4); Lymphocytes % (auto) 14.7 % (10.0-50.0); Mean Corpuscular Hemoglobin 27.1 pg (28.0-32.0); Mean Corpuscular Hgb Conc. 32.6 g/dL (32.0-36.0); Monocytes # (auto) 0.7 10 ^3/uL (0-1.3); Monocytes % (auto) 8.3 % (0.0-12.0); Neutrophils % (auto) 68.1 % (37.0-80.0); Red Blood Cells 5.41 10^6/uL (4.5-5.90); Red Cell Distribution Width 16.7 % (11.8-14.3); White Blood Cell 8.8 10^3/uL (4.4-10.8)
[2022-09-23] MEDS: NICOTINE 21MG/24 HR TOPICAL PATCH TD SCH (10:49)
[2022-09-23] MEDS: PANTOPRAZOLE 40 MG TAB PO SCH (10:49)
[2022-09-23] MEDS: APIXABAN 5 MG TAB PO SCH ×2 (10:50→23:02)
[2022-09-23] MEDS: amLODIPine BESYLATE 5 MG TAB PO SCH (10:50)
[2022-09-23 10:56] LABS: Albumin 3.2 g/dL (3.4-5.0); Calcium 8.9 mg/dL (8.5-10.1)
[2022-09-23 11:04] LABS: BUN/Creatinine Ratio 8.3 (10.0-20.0); Bilirubin, Total 0.3 mg/dL (0.2-1.0); Total Protein 6.3 g/dL (6.4-8.2)
[2022-09-23] MEDS: methylPREDNISolone SOD SUCC 125 MG/2 ML VL IV SCH (23:07)
[2022-09-24] VITALS (7 sets, daily range): BP systolic 127–136; BP diastolic 76–91; PULSE 74–100; RESP 18–19; TEMP 36.8; O2SAT 94–100
[2022-09-24] MEDS: IPRATROPIUM BROM 0.5 MG/2.5ML INH SOL NEB PRN (00:12)
[2022-09-24] MEDS: ALBUTEROL SULF 2.5 MG/0.5ML(0.5%) NEB SOLN NEB PRN (00:12)
[2022-09-24] MEDS: AZITHROMYCIN 500MG/ 250ML 250 ML IV SCH (04:53)
[2022-09-24 06:36] LABS: Basophils # (auto) 0.1 10 ^3/uL (0-0.2); Basophils % (auto) 0.5 % (0.0-2.0); Eosinophils # (auto) 0 10 ^3/uL (0-0.8); Eosinophils % (auto) 0.2 % (0.0-7.0); Hematocrit 47.7 % (41.0-53.0); Hemoglobin 15.6 g/dL (13.5-17.5); Lymphocytes # (auto) 0.8 10 ^3/uL (0.4-5.4); Lymphocytes % (auto) 7.3 % (10.0-50.0); Mean Corpuscular Hemoglobin 27.4 pg (28.0-32.0); Mean Corpuscular Hgb Conc. 32.7 g/dL (32.0-36.0); Mean Corpuscular Volume 83.8 fL (80.0-100.0); Monocytes # (auto) 0.1 10 ^3/uL (0-1.3); Monocytes % (auto) 1.1 % (0.0-12.0); Neutrophils # (auto) 9.4 10 ^3/uL (1.6-8.6); Neutrophils % (auto) 90.9 % (37.0-80.0); Nucleated Red Blood Cells % 0.2 %; Red Blood Cells 5.69 10^6/uL (4.5-5.90); Red Cell Distribution Width 16.5 % (11.8-14.3); White Blood Cell 10.3 10^3/uL (4.4-10.8)
[2022-09-24 06:52] LABS: Potassium 4.4 mmol/L (3.5-5.1)
[2022-09-24 06:57] LABS: Albumin 3.4 g/dL (3.4-5.0); BUN/Creatinine Ratio 10.4 (10.0-20.0); Bilirubin, Total 0.3 mg/dL (0.2-1.0); Total Protein 6.8 g/dL (6.4-8.2)
[2022-09-24] MEDS ORDERED: PRED20TA2 PO (09:17)
[2022-09-24] MEDS ORDERED: AZIT500T66 PO (09:17)
[2022-09-24] MEDS ORDERED: ASPirin 81 mg TAB PO SCH (10:00)
[2022-09-24] MEDS: NICOTINE 21MG/24 HR TOPICAL PATCH TD SCH (10:02)
[2022-09-24] MEDS: PANTOPRAZOLE 40 MG TAB PO SCH (10:02)
[2022-09-24] MEDS: methylPREDNISolone SOD SUCC 125 MG/2 ML VL IV SCH (10:02)
[2022-09-24] MEDS: APIXABAN 5 MG TAB PO SCH (10:02)
[2022-09-24] MEDS: amLODIPine BESYLATE 5 MG TAB PO SCH (10:03)
== END 2022-09-24 13:00 | disposition home or self-care (01) | DRG 140 ==
LOC: ER 20:11 → EDBD 20:11 → TELE 09-23 03:02 → TELE-EAST 09-23 21:53
PROVIDERS: ADMIT Internal Medicine Pulmonary Disease
DX: J44.1 Chronic obstructive pulmonary disease with (acute) exacerbation (principal); E44.1 Mild protein-calorie malnutrition; I10 Essential (primary) hypertension; F17.210 Nicotine dependence, cigarettes, uncomplicated; Z85.118 Personal history of other malignant neoplasm of bronchus and lung; Z86.73 Personal history of transient ischemic attack (TIA), and cerebral infarction without residual deficits; I25.10 Atherosclerotic heart disease of native coronary artery without angina pectoris; Z68.25 Body mass index [BMI] 25.0-25.9, adult
CPT/HCPCS: 36415; 36600; 71045; 71250; 80053; 81001; 82805; 82962; 83036; 83880; 84484; 85025; 85379; 85610; 85730; 93005; 94640; 96365; 96366; 99291; G0378

== ENCOUNTER 2022-10-22 14:32 | Inpatient (IN) | payer MEDICARE, MEDICAID ==
[~2022-10-22] VITALS: Ht 165.1 cm; Wt 68.9 kg
[~2022-10-22 14:32] MED LIST changes: +AZIT500T66 PO
[2022-10-22] MEDS ORDERED: ALBUTEROL SULF 2.5 MG/0.5ML(0.5%) NEB SOLN NEB ONE (14:45)
[2022-10-22] MEDS ORDERED: DexAMETHasone SOD PHOS 10MG/1ML VIAL INJ IV ONE (14:45)
[2022-10-22 15:08] LABS: Hemoglobin 15.7 g/dL (13.5-17.5); Lymphocytes # (auto) 1.6 10 ^3/uL (0.4-5.4); Monocytes # (auto) 0.6 10 ^3/uL (0-1.3); Nucleated Red Blood Cells % 0.1 %
[2022-10-22 15:10] LABS: Basophils # (auto) 0.1 10 ^3/uL (0-0.2); Basophils % (auto) 1.3 % (0.0-2.0); Eosinophils % (auto) 13.8 % (0.0-7.0); Hematocrit 47.8 % (41.0-53.0); Lymphocytes % (auto) 22.1 % (10.0-50.0); Mean Corpuscular Hemoglobin 27.2 pg (28.0-32.0); Mean Corpuscular Hgb Conc. 32.8 g/dL (32.0-36.0); Mean Corpuscular Volume 82.9 fL (80.0-100.0); Monocytes % (auto) 8.8 % (0.0-12.0); Neutrophils # (auto) 3.9 10 ^3/uL (1.6-8.6); Red Blood Cells 5.77 10^6/uL (4.5-5.90); Red Cell Distribution Width 17.5 % (11.8-14.3); White Blood Cell 7.3 10^3/uL (4.4-10.8)
[2022-10-22 15:23] VITALS: PULSE 75; RESP 21; O2SAT 98
[2022-10-22 15:30] LABS: Alanine Aminotransferase 31 U/L (7-40); Albumin 4.2 g/dL (3.2-4.8); Alkaline Phosphatase 112 U/L (46-116); Anion Gap 1.5 (5-15); BUN/Creatinine Ratio 7.6 (10.0-20.0); Blood Urea Nitrogen 8 mg/dL (9-23); Calcium 9.6 mg/dL (8.7-10.4); Carbon Dioxide 32.5 mmol/L (20-30); Chloride 110 mmol/L (98-107); Glucose 123 mg/dL (74-106); Potassium 4.4 mmol/L (3.5-5.1); Sodium 144 mmol/L (136-145)
[2022-10-22 15:31] LABS: Aspartate Aminotransferase 14 U/L (13-40); Bilirubin, Total 0.5 mg/dL (0.2-1.0); Total Protein 6.4 g/dL (5.7-8.2)
[2022-10-22] MEDS ORDERED: IOHEXOL 350 MG/ML 100ML IJ ONE ×2 (15:40→16:07)
[2022-10-22] MEDS ORDERED: ALBUTEROL SULF 2.5 MG/0.5ML(0.5%) NEB SOLN NEB PRN (16:00)
[2022-10-22] MEDS ORDERED: ACETAMINOPHEN 325 MG TAB PO PRN (16:00)
[2022-10-22 16:42] VITALS: BP 121/77; PULSE 75; RESP 21; O2SAT 98
[2022-10-22 16:49] VITALS: O2SAT 98
[2022-10-22] MEDS: SODIUM CHLORIDE 0.9% 1,000 ML IV SCH (16:58)
[2022-10-22] MEDS ORDERED: LIDOCAINE 1% HCL (LOCAL ANESTH.) INJ 20ML MDV ONE (17:14)
[2022-10-22 17:40] LABS: Urine Bacteria NONE SEEN /hpf (None Seen); Urine Blood Negative /uL (Negative); Urine Clarity Clear (Clear); Urine Color Colorless (Yellow); Urine Protein, UAD Negative (Negative); Urine Specific Gravity 1.022 (1.001-1.035); Urine Urobilinogen Normal (Negative); Urine WBC <1 /hpf (0 - 3); Urine pH 6.5 (5.0-8.0)
[2022-10-22] MEDS: IPRATROPIUM BROM 0.5 MG/2.5ML INH SOL NEB SCH ×2 (18:14→22:10)
[2022-10-22] MEDS: ALBUTEROL SULF 2.5 MG/0.5ML(0.5%) NEB SOLN NEB SCH ×2 (18:14→22:10)
[2022-10-22 20:20] VITALS: PULSE 90; RESP 18; O2SAT 95
[2022-10-22] MEDS: APIXABAN 5 MG TAB PO SCH (22:05)
[2022-10-22] MEDS: methylPREDNISolone SOD SUCC 40 MG/ML VL IV SCH (22:06)
[2022-10-22] MEDS: HYDROcodone-ACET 5/325MG TAB PO PRN (22:39)
[2022-10-23] VITALS (16 sets, daily range): BP systolic 98–158; BP diastolic 68–90; PULSE 68–88; RESP 18–24; TEMP 97.1–98.8; O2SAT 90–100
[2022-10-23] MEDS: IPRATROPIUM BROM 0.5 MG/2.5ML INH SOL NEB SCH ×6 (01:50→22:22)
[2022-10-23] MEDS: ALBUTEROL SULF 2.5 MG/0.5ML(0.5%) NEB SOLN NEB SCH ×6 (01:50→22:22)
[2022-10-23 05:09] LABS: Basophils # (auto) 0 10 ^3/uL (0-0.2); Eosinophils # (auto) 0 10 ^3/uL (0-0.8); Monocytes # (auto) 0.1 10 ^3/uL (0-1.3); Monocytes % (auto) 1.2 % (0.0-12.0)
[2022-10-23 05:12] LABS: Basophils % (auto) 0.5 % (0.0-2.0); Eosinophils % (auto) 0.1 % (0.0-7.0); Hematocrit 49.9 % (41.0-53.0); Lymphocytes # (auto) 0.8 10 ^3/uL (0.4-5.4); Lymphocytes % (auto) 9.2 % (10.0-50.0); Mean Corpuscular Hgb Conc. 32.1 g/dL (32.0-36.0); Mean Corpuscular Volume 84.2 fL (80.0-100.0); Neutrophils # (auto) 7.6 10 ^3/uL (1.6-8.6); Red Blood Cells 5.92 10^6/uL (4.5-5.90); Red Cell Distribution Width 17.5 % (11.8-14.3); White Blood Cell 8.5 10^3/uL (4.4-10.8)
[2022-10-23 05:24] LABS: Alanine Aminotransferase 30 U/L (7-40); Albumin 4.2 g/dL (3.2-4.8); Alkaline Phosphatase 106 U/L (46-116); Anion Gap 7.8 (5-15); Aspartate Aminotransferase 20 U/L (13-40); BUN/Creatinine Ratio 9.6 (10.0-20.0); Blood Urea Nitrogen 9 mg/dL (9-23); Calcium 9.3 mg/dL (8.7-10.4); Carbon Dioxide 22.2 mmol/L (20-30); Chloride 110 mmol/L (98-107); Glucose 193 mg/dL (74-106); Potassium 4.5 mmol/L (3.5-5.1); Sodium 140 mmol/L (136-145)
[2022-10-23 05:25] LABS: Bilirubin, Total 0.4 mg/dL (0.2-1.0); Total Protein 6.6 g/dL (5.7-8.2)
[2022-10-23] MEDS: SODIUM CHLORIDE 0.9% 1,000 ML IV SCH (08:40)
[2022-10-23] MEDS: methylPREDNISolone SOD SUCC 40 MG/ML VL IV SCH ×2 (09:32→21:47)
[2022-10-23] MEDS: NICOTINE 21MG/24 HR TOPICAL PATCH TD SCH (09:34)
[2022-10-23] MEDS: APIXABAN 5 MG TAB PO SCH ×2 (09:34→21:48)
[2022-10-23] MEDS: amLODIPine BESYLATE 5 MG TAB PO SCH (09:35)
[2022-10-23] MEDS ORDERED: ENOXAPARIN SOD 40 MG/0.4 ML SYRINGE SC SCH (10:00)
[2022-10-23] MEDS: HYDROcodone-ACET 5/325MG TAB PO PRN ×2 (14:17→21:48)
[2022-10-24] VITALS (18 sets, daily range): BP systolic 122–142; BP diastolic 75–84; PULSE 70–106; RESP 17–20; TEMP 98.1–98.8; O2SAT 93–100
[2022-10-24] MEDS: SODIUM CHLORIDE 0.9% 1,000 ML IV SCH ×3 (01:20→21:37)
[2022-10-24] MEDS: IPRATROPIUM BROM 0.5 MG/2.5ML INH SOL NEB SCH ×6 (04:01→22:22)
[2022-10-24] MEDS: ALBUTEROL SULF 2.5 MG/0.5ML(0.5%) NEB SOLN NEB SCH ×6 (04:01→22:22)
[2022-10-24] MEDS ORDERED: methylPREDNISolone SOD SUCC 125 MG/2 ML VL IV ONE (06:15)
[2022-10-24] MEDS: APIXABAN 5 MG TAB PO SCH ×2 (10:32→21:32)
[2022-10-24] MEDS: amLODIPine BESYLATE 5 MG TAB PO SCH (10:33)
[2022-10-24] MEDS: NICOTINE 21MG/24 HR TOPICAL PATCH TD SCH (10:38)
[2022-10-24] MEDS: methylPREDNISolone SOD SUCC 40 MG/ML VL IV SCH ×2 (13:57→21:32)
[2022-10-25] VITALS (12 sets, daily range): BP systolic 123–140; BP diastolic 64–72; PULSE 69–100; RESP 17–21; TEMP 97.8–98.1; O2SAT 94–99
[2022-10-25] MEDS: IPRATROPIUM BROM 0.5 MG/2.5ML INH SOL NEB SCH ×4 (02:25→13:54)
[2022-10-25] MEDS: ALBUTEROL SULF 2.5 MG/0.5ML(0.5%) NEB SOLN NEB SCH ×4 (02:25→13:54)
[2022-10-25] MEDS: methylPREDNISolone SOD SUCC 40 MG/ML VL IV SCH ×2 (05:42→14:00)
[2022-10-25] MEDS ORDERED: MORPHINE SULFATE INJ 2 MG/ml SYRG IV ONE (08:15)
[2022-10-25] MEDS ORDERED: LIDOCAINE 1% HCL (LOCAL ANESTH.) INJ 20ML MDV ID ONE (09:00)
[2022-10-25] MEDS ORDERED: LIDOCAINE 2%HCL (LOCAL ANESTH.) INJ 10ml MDV IJ ONE (09:15)
[2022-10-25] MEDS: amLODIPine BESYLATE 5 MG TAB PO SCH (09:50)
[2022-10-25] MEDS: NICOTINE 21MG/24 HR TOPICAL PATCH TD SCH (09:52)
[2022-10-25] MEDS: APIXABAN 5 MG TAB PO SCH ×2 (09:52→11:38)
[2022-10-25] MEDS ORDERED: NIC21P TOP (11:18)
[2022-10-25] MEDS ORDERED: IPRIH INH (11:18)
[2022-10-25] MEDS ORDERED: METH4PAK PO (11:18)
[2022-10-25] MEDS ORDERED: LEVO500T91 PO (11:18)
[2022-10-25] MEDS ORDERED: ALBUAER3 IN (11:18)
[2022-10-25 13:10] LABS: Base Excess -0.7 mmol/L (-2.0-2.0)
== END 2022-10-25 17:00 | disposition home or self-care (01) | DRG 143 ==
LOC: ER 14:32 → EDBD 14:32 → OVERFLOW 16:03 → WEST WING 10-23 06:53
PROVIDERS: ADMIT Nurse Practitioner Family; ATTEND Family Medicine
PROC: 0W9930Z Drainage of Right Pleural Cavity with Drainage Device, Percutaneous Approach (ICD-10-PCS; principal; 2022-10-22)
DX: J93.9 Pneumothorax, unspecified (principal); J96.21 Acute and chronic respiratory failure with hypoxia; E44.0 Moderate protein-calorie malnutrition; J44.1 Chronic obstructive pulmonary disease with (acute) exacerbation; J90 Pleural effusion, not elsewhere classified; K40.90 Unilateral inguinal hernia, without obstruction or gangrene, not specified as recurrent; J98.11 Atelectasis; I10 Essential (primary) hypertension; F17.210 Nicotine dependence, cigarettes, uncomplicated; Z68.25 Body mass index [BMI] 25.0-25.9, adult; I25.2 Old myocardial infarction; Z80.42 Family history of malignant neoplasm of prostate; Z82.0 Family history of epilepsy and other diseases of the nervous system; Z82.49 Family history of ischemic heart disease and other diseases of the circulatory system; Z85.118 Personal history of other malignant neoplasm of bronchus and lung; Z86.73 Personal history of transient ischemic attack (TIA), and cerebral infarction without residual deficits
CPT/HCPCS: 31500; 36415; 36600; 71045; 71250; 71275; 80053; 81001; 82805; 82962; 83880; 84484; 85025; 87081; 94640; 99291; G0378; J1100; J2001

== ENCOUNTER 2022-11-23 00:04 | Emergency (ER) | payer MEDICARE, MEDICAID ==
[~2022-11-23] VITALS: Ht 165.1 cm; Wt 79.1 kg
[~2022-11-23 00:04] MED LIST changes: +METH4PAK PO
[2022-11-23] MEDS ORDERED: IPRATROPIUM BROM 0.5 MG/2.5ML INH SOL NEB ONE ×2 (02:45→04:00)
[2022-11-23] MEDS ORDERED: ALBUTEROL SULF 2.5 MG/0.5ML(0.5%) NEB SOLN NEB ONE ×2 (02:45→04:00)
[2022-11-23] MEDS ORDERED: methylPREDNISolone SOD SUCC 40 MG/ML VL IM ONE (02:45)
[2022-11-23 03:34] LABS: Basophils # (auto) 0.1 10 ^3/uL (0-0.2); Basophils % (auto) 1.3 % (0.0-2.0); Eosinophils % (auto) 13.2 % (0.0-7.0); Hemoglobin 15.5 g/dL (13.5-17.5); Lymphocytes # (auto) 1.5 10 ^3/uL (0.4-5.4); Mean Corpuscular Hemoglobin 27.2 pg (28.0-32.0); Mean Corpuscular Hgb Conc. 32.3 g/dL (32.0-36.0); Mean Corpuscular Volume 84.2 fL (80.0-100.0); Monocytes % (auto) 13.2 % (0.0-12.0); Neutrophils # (auto) 3.8 10 ^3/uL (1.6-8.6); Neutrophils % (auto) 52.3 % (37.0-80.0); Nucleated Red Blood Cells % 0.1 %; Red Cell Distribution Width 18.1 % (11.8-14.3); White Blood Cell 7.3 10^3/uL (4.4-10.8)
[2022-11-23 03:54] LABS: INR 0.99 (0.9-1.15); Prothrombin Time 10.4 sec (9.3-11.8)
[2022-11-23] MEDS ORDERED: ALBUAER3 IN (04:00)
[2022-11-23 04:46] LABS: Alanine Aminotransferase 21 U/L (7-40); Albumin 4.4 g/dL (3.2-4.8); Alkaline Phosphatase 118 U/L (46-116); Anion Gap 9 (5-15); Aspartate Aminotransferase 20 U/L (13-40); BUN/Creatinine Ratio 5.9 (10.0-20.0); Bilirubin, Total 0.4 mg/dL (0.2-1.0); Blood Urea Nitrogen 7 mg/dL (9-23); Calcium 9.5 mg/dL (8.5-10.1); Carbon Dioxide 24 mmol/L (20-30); Chloride 111 mmol/L (98-107); Glucose 94 mg/dL (74-106); Potassium 4.3 mmol/L (3.5-5.1); Sodium 144 mmol/L (136-145); Total Protein 6.9 g/dL (5.7-8.2)
[2022-11-23 06:08] VITALS: BP 138/76; PULSE 78; RESP 20; TEMP 98; O2SAT 99
== END 2022-11-23 06:20 | disposition home or self-care (01) ==
LOC: ER 00:04 → EDBD 00:04 → ER 06:20
DX: J45.909 Unspecified asthma, uncomplicated (principal); I10 Essential (primary) hypertension; I25.2 Old myocardial infarction; F17.210 Nicotine dependence, cigarettes, uncomplicated; Z85.9 Personal history of malignant neoplasm, unspecified; Z86.73 Personal history of transient ischemic attack (TIA), and cerebral infarction without residual deficits; Z98.890 Other specified postprocedural states
CPT/HCPCS: 36415; 71046; 80053; 85025; 85610; 87040; 93005; 94640; 96372; 99285; J2920; J7644

== ENCOUNTER 2022-12-16 05:36 | Emergency (ER) | payer MEDICARE, MEDICAID ==
[~2022-12-16] VITALS: Ht 167.6 cm; Wt 70.0 kg
[2022-12-16 06:46] LABS: Basophils # (auto) 0.1 10 ^3/uL (0-0.2); Basophils % (auto) 0.7 % (0.0-2.0); Eosinophils # (auto) 0.9 10 ^3/uL (0-0.8); Eosinophils % (auto) 6.9 % (0.0-7.0); Hematocrit 50.5 % (41.0-53.0); Hemoglobin 16.2 g/dL (13.5-17.5); Lymphocytes # (auto) 1.3 10 ^3/uL (0.4-5.4); Lymphocytes % (auto) 9.8 % (10.0-50.0); Mean Corpuscular Hemoglobin 27.1 pg (28.0-32.0); Mean Corpuscular Hgb Conc. 32.1 g/dL (32.0-36.0); Mean Corpuscular Volume 84.2 fL (80.0-100.0); Monocytes # (auto) 0.7 10 ^3/uL (0-1.3); Monocytes % (auto) 5.4 % (0.0-12.0); Neutrophils # (auto) 10.1 10 ^3/uL (1.6-8.6); Neutrophils % (auto) 77.2 % (37.0-80.0); Nucleated Red Blood Cells % 0.1 %; Red Blood Cells 5.99 10^6/uL (4.5-5.90); Red Cell Distribution Width 16.8 % (11.8-14.3); White Blood Cell 13.1 10^3/uL (4.4-10.8)
[2022-12-16 07:00] LABS: INR 0.99 (0.9-1.15); Partial Thromboplastin Time 28.5 SEC (24.5-34.5); Prothrombin Time 10.4 sec (9.3-11.8)
[2022-12-16 07:03] LABS: Alanine Aminotransferase 25 U/L (7-40); Albumin 4.8 g/dL (3.2-4.8); Alkaline Phosphatase 139 U/L (46-116); Anion Gap 9 (5-15); Aspartate Aminotransferase 23 U/L (13-40); BUN/Creatinine Ratio 7.8 (10.0-20.0); Blood Urea Nitrogen 8 mg/dL (9-23); Calcium 9.7 mg/dL (8.7-10.4); Carbon Dioxide 24 mmol/L (20-30); Chloride 110 mmol/L (98-107); Glucose 100 mg/dL (74-106); Potassium 4.2 mmol/L (3.5-5.1); Sodium 143 mmol/L (136-145)
[2022-12-16 07:04] LABS: Bilirubin, Total 0.4 mg/dL (0.2-1.0); Total Protein 7.1 g/dL (5.7-8.2)
[2022-12-16] MEDS ORDERED: ALBUTEROL MEDNEB 2.5 mg/3ml NEB ONE (07:23)
[2022-12-16] MEDS ORDERED: ALBUTEROL SULF 2.5 MG/0.5ML(0.5%) NEB SOLN NEB ONE (07:30)
[2022-12-16] MEDS ORDERED: IPRATROPIUM BROM 0.5 MG/2.5ML INH SOL NEB ONE (07:30)
[2022-12-16] MEDS ORDERED: methylPREDNISolone SOD SUCC 125 MG/2 ML VL IV ONE (07:30)
[2022-12-16] MEDS ORDERED: PRED20TA2 PO (07:45)
[2022-12-16] MEDS ORDERED: LEVO500T91 PO (07:45)
[2022-12-16] MEDS ORDERED: cefTRIAXone SOD 1,000 MG VL IM ONE (08:00)
[2022-12-16 09:00] VITALS: PULSE 78; RESP 16; O2SAT 96
[2022-12-16 09:04] VITALS: BP 132/72; PULSE 78; RESP 16; TEMP 97.8; O2SAT 96
[2022-12-16] MEDS ORDERED: methylPREDNISolone SOD SUCC 125 MG/2 ML VL IM ONE (09:15)
== END 2022-12-16 09:31 | disposition home or self-care (01) ==
LOC: EDBD 05:36 → ER 05:36
DX: J44.0 Chronic obstructive pulmonary disease with (acute) lower respiratory infection (principal); J20.9 Acute bronchitis, unspecified; I10 Essential (primary) hypertension; I25.2 Old myocardial infarction; F17.210 Nicotine dependence, cigarettes, uncomplicated; Z86.73 Personal history of transient ischemic attack (TIA), and cerebral infarction without residual deficits; Z98.890 Other specified postprocedural states
CPT/HCPCS: 36415; 71045; 80053; 83735; 83880; 84484; 85025; 85610; 85730; 93005; 94640; 96372; 99285; J0696; J2930; J7644

== ENCOUNTER 2022-12-26 12:24 | Inpatient (IN) | payer MEDICARE, MEDICAID ==
[~2022-12-26] VITALS: Ht 167.6 cm; Wt 81.6 kg
[2022-12-26] MEDS ORDERED: IPRATROPIUM BROM 0.5 MG/2.5ML INH SOL NEB ONE (12:45)
[2022-12-26] MEDS ORDERED: ALBUTEROL MEDNEB 2.5 mg/3ml NEB NEB ONE (12:45)
[2022-12-26] MEDS ORDERED: methylPREDNISolone SOD SUCC 125 MG/2 ML VL IV ONE (12:45)
[2022-12-26 13:07] LABS: Basophils # (auto) 0.1 10 ^3/uL (0-0.2); Basophils % (auto) 0.7 % (0.0-2.0); Eosinophils # (auto) 0.4 10 ^3/uL (0-0.8); Eosinophils % (auto) 3.9 % (0.0-7.0); Hematocrit 47.9 % (41.0-53.0); Hemoglobin 15.5 g/dL (13.5-17.5); Lymphocytes # (auto) 1.4 10 ^3/uL (0.4-5.4); Lymphocytes % (auto) 13.8 % (10.0-50.0); Mean Corpuscular Hemoglobin 27.3 pg (28.0-32.0); Mean Corpuscular Hgb Conc. 32.3 g/dL (32.0-36.0); Mean Corpuscular Volume 84.6 fL (80.0-100.0); Monocytes # (auto) 0.4 10 ^3/uL (0-1.3); Neutrophils # (auto) 7.7 10 ^3/uL (1.6-8.6); Neutrophils % (auto) 77.6 % (37.0-80.0); Nucleated Red Blood Cells % 0.1 %; Red Blood Cells 5.67 10^6/uL (4.5-5.90)
[2022-12-26 13:30] LABS: Alanine Aminotransferase 30 U/L (7-40); Albumin 4.5 g/dL (3.2-4.8); Alkaline Phosphatase 119 U/L (46-116); Anion Gap 7 (5-15); Aspartate Aminotransferase 24 U/L (13-40); BUN/Creatinine Ratio 8.3 (10.0-20.0); Blood Urea Nitrogen 10 mg/dL (9-23); Calcium 9.6 mg/dL (8.5-10.1); Carbon Dioxide 27 mmol/L (20-30); Chloride 110 mmol/L (98-107); Glucose 104 mg/dL (74-106); Potassium 4.6 mmol/L (3.5-5.1); Sodium 144 mmol/L (136-145)
[2022-12-26 13:31] LABS: Bilirubin, Total 0.3 mg/dL (0.2-1.0); Total Protein 6.6 g/dL (5.7-8.2)
[2022-12-26] MEDS ORDERED: MORPHINE SULFATE INJ 2 MG/ml SYRG IV PRN (15:30)
[2022-12-26] MEDS ORDERED: ONDANSETRON HCL 4 MG/2 ML VIAL IV PRN (15:30)
[2022-12-26] MEDS ORDERED: DOCUSATE SOD 100 MG CAP PO PRN (15:30)
[2022-12-26 16:17] VITALS: BP 148/79; PULSE 86; RESP 20; TEMP 98.2; O2SAT 95
[2022-12-26 17:06] LABS: INR 1.01 (0.9-1.15); Prothrombin Time 10.6 sec (9.3-11.8)
[2022-12-26 19:38] VITALS: PULSE 88; RESP 20; O2SAT 95
[2022-12-26] MEDS: SODIUM CHLORIDE 0.9% 1,000 ML IV SCH (19:38)
[2022-12-26] MEDS: ALBUTEROL MEDNEB 2.5 mg/3ml NEB NEB SCH ×2 (19:41→22:29)
[2022-12-26] MEDS: IPRATROPIUM BROM 0.5 MG/2.5ML INH SOL NEB SCH ×2 (19:41→22:28)
[2022-12-26 19:48] VITALS: PULSE 92; RESP 20; O2SAT 98
[2022-12-26 20:55] LABS: COVID19 ANTIGEN SOFIA FIA NEGATIVE (NEGATIVE); Rapid Influenza A Negative (Negative); Rapid Influenza B Negative (Negative)
[2022-12-26 22:28] VITALS: PULSE 94; RESP 18; O2SAT 96
[2022-12-26 22:38] VITALS: PULSE 90; RESP 20; O2SAT 100
[2022-12-27] VITALS (12 sets, daily range): PULSE 68–110; RESP 13–20; O2SAT 92–100
[2022-12-27] MEDS: APIXABAN 5 MG TAB PO SCH ×3 (02:20→21:54)
[2022-12-27] MEDS: methylPREDNISolone SOD SUCC 125 MG/2 ML VL IV SCH ×4 (02:21→21:54)
[2022-12-27] MEDS: IPRATROPIUM BROM 0.5 MG/2.5ML INH SOL NEB SCH ×6 (02:22→22:17)
[2022-12-27] MEDS: ALBUTEROL MEDNEB 2.5 mg/3ml NEB NEB SCH ×6 (02:22→22:17)
[2022-12-27 05:43] LABS: Basophils # (auto) 0 10 ^3/uL (0-0.2); Basophils % (auto) 0.2 % (0.0-2.0); Eosinophils # (auto) 0 10 ^3/uL (0-0.8); Hematocrit 47.6 % (41.0-53.0); Hemoglobin 15.4 g/dL (13.5-17.5); Lymphocytes # (auto) 0.7 10 ^3/uL (0.4-5.4); Lymphocytes % (auto) 5.8 % (10.0-50.0); Mean Corpuscular Hemoglobin 27.3 pg (28.0-32.0); Mean Corpuscular Hgb Conc. 32.3 g/dL (32.0-36.0); Mean Corpuscular Volume 84.6 fL (80.0-100.0); Monocytes # (auto) 0.3 10 ^3/uL (0-1.3); Monocytes % (auto) 2.3 % (0.0-12.0); Neutrophils # (auto) 11.7 10 ^3/uL (1.6-8.6); Neutrophils % (auto) 91.7 % (37.0-80.0); Red Blood Cells 5.63 10^6/uL (4.5-5.90); Red Cell Distribution Width 16.6 % (11.8-14.3); White Blood Cell 12.8 10^3/uL (4.4-10.8)
[2022-12-27 06:24] LABS: Alanine Aminotransferase 19 U/L (7-40); Alkaline Phosphatase 120 U/L (46-116); Anion Gap 9 (5-15); BUN/Creatinine Ratio 9.2 (10.0-20.0); Blood Urea Nitrogen 11 mg/dL (9-23); Calcium 9.6 mg/dL (8.7-10.4); Carbon Dioxide 22 mmol/L (20-30); Chloride 108 mmol/L (98-107); Glucose 134 mg/dL (74-106); Potassium 4.9 mmol/L (3.5-5.1); Sodium 139 mmol/L (136-145)
[2022-12-27 06:25] LABS: Albumin 4.5 g/dL (3.2-4.8); Aspartate Aminotransferase 19 U/L (13-40)
[2022-12-27 06:26] LABS: Bilirubin, Total 0.4 mg/dL (0.2-1.0); Total Protein 6.9 g/dL (5.7-8.2)
[2022-12-27] MEDS: SODIUM CHLORIDE 0.9% 1,000 ML IV SCH (08:10)
[2022-12-27] MEDS ORDERED: PATIENTS OWN MEDICATION (Amlodipine Besylate 1 TAB) PO SCH (10:00)
[2022-12-27] MEDS: PANTOPRAZOLE 40 MG/10 ML VIAL INJ IV SCH (10:08)
[2022-12-27] MEDS: NICOTINE 21MG/24 HR TOPICAL PATCH TD SCH (10:09)
[2022-12-27] MEDS: amLODIPine BESYLATE 5 MG TAB PO SCH (10:10)
[2022-12-27 18:54] LABS: Urine Bacteria NONE SEEN /hpf (None Seen); Urine Blood Negative /uL (Negative); Urine Clarity Clear (Clear); Urine Color Colorless (Yellow); Urine Hyaline Cast FEW /lpf (0 - 2); Urine Mucus FEW (None Seen); Urine Protein, UAD Negative (Negative); Urine Specific Gravity 1.015 (1.001-1.035); Urine Urobilinogen Normal (Negative); Urine WBC 1 /hpf (0 - 3); Urine pH 5.5 (5.0-8.0)
[2022-12-28] VITALS (18 sets, daily range): BP systolic 125–143; BP diastolic 78–88; PULSE 72–97; RESP 16–19; TEMP 97.8–98.1; O2SAT 92–100
[2022-12-28] MEDS: IPRATROPIUM BROM 0.5 MG/2.5ML INH SOL NEB SCH ×6 (02:10→22:12)
[2022-12-28] MEDS: ALBUTEROL MEDNEB 2.5 mg/3ml NEB NEB SCH ×6 (02:10→22:12)
[2022-12-28] MEDS: SODIUM CHLORIDE 0.9% 1,000 ML IV SCH ×2 (02:21→16:26)
[2022-12-28] MEDS: methylPREDNISolone SOD SUCC 125 MG/2 ML VL IV SCH ×2 (06:02→22:22)
[2022-12-28] MEDS: amLODIPine BESYLATE 5 MG TAB PO SCH (10:12)
[2022-12-28] MEDS: APIXABAN 5 MG TAB PO SCH ×2 (10:12→22:22)
[2022-12-28] MEDS: NICOTINE 21MG/24 HR TOPICAL PATCH TD SCH (10:12)
[2022-12-28] MEDS: PANTOPRAZOLE 40 MG/10 ML VIAL INJ IV SCH (10:13)
[2022-12-28] MEDS ORDERED: hydrALAZINE HCL 20 MG/ML VL IV PRN (11:00)
[2022-12-28] MEDS ORDERED: AZITHROMYCIN 500MG/ 250ML 250 ML IV ONE (12:45)
[2022-12-29] VITALS (13 sets, daily range): BP systolic 121–128; BP diastolic 79; PULSE 69–88; RESP 16–18; TEMP 36.9; O2SAT 93–100
[2022-12-29] MEDS: IPRATROPIUM BROM 0.5 MG/2.5ML INH SOL NEB SCH ×4 (01:57→14:06)
[2022-12-29] MEDS: ALBUTEROL MEDNEB 2.5 mg/3ml NEB NEB SCH ×4 (01:57→14:06)
[2022-12-29] MEDS ORDERED: AZIT500T66 PO (09:36)
[2022-12-29] MEDS ORDERED: ALBUAER3 IN (09:36)
[2022-12-29] MEDS ORDERED: PRED20TA2 PO (09:36)
[2022-12-29] MEDS ORDERED: UMEC1AER IN (09:47)
[2022-12-29] MEDS ORDERED: AZITHROMYCIN 500MG/ 250ML 250 ML IV SCH (10:00)
[2022-12-29] MEDS: SODIUM CHLORIDE 0.9% 1,000 ML IV SCH (10:04)
[2022-12-29] MEDS: NICOTINE 21MG/24 HR TOPICAL PATCH TD SCH (10:04)
[2022-12-29] MEDS: APIXABAN 5 MG TAB PO SCH (10:06)
[2022-12-29] MEDS: amLODIPine BESYLATE 5 MG TAB PO SCH (10:06)
[2022-12-29] MEDS: PANTOPRAZOLE 40 MG/10 ML VIAL INJ IV SCH (10:07)
[2022-12-29] MEDS: methylPREDNISolone SOD SUCC 125 MG/2 ML VL IV SCH (10:07)
[2022-12-30] MEDS ORDERED: methylPREDNISolone SOD SUCC 40 MG/ML VL IV SCH (10:00)
== END 2022-12-29 18:10 | disposition home or self-care (01) | DRG 140 ==
LOC: EDBD 12:24 → ER 12:24 → TELE 15:50 → TELE-CENTR 12-28 08:19
PROVIDERS: ADMIT Nurse Practitioner Family; ATTEND Family Medicine
DX: J44.1 Chronic obstructive pulmonary disease with (acute) exacerbation (principal); J96.21 Acute and chronic respiratory failure with hypoxia; E44.0 Moderate protein-calorie malnutrition; J45.901 Unspecified asthma with (acute) exacerbation; K40.90 Unilateral inguinal hernia, without obstruction or gangrene, not specified as recurrent; J20.9 Acute bronchitis, unspecified; J44.0 Chronic obstructive pulmonary disease with (acute) lower respiratory infection; I10 Essential (primary) hypertension; F17.210 Nicotine dependence, cigarettes, uncomplicated; Z20.822 Contact with and (suspected) exposure to COVID-19; I25.10 Atherosclerotic heart disease of native coronary artery without angina pectoris; I25.2 Old myocardial infarction; Z86.711 Personal history of pulmonary embolism; Z90.2 Acquired absence of lung [part of]; Z82.0 Family history of epilepsy and other diseases of the nervous system; Z80.42 Family history of malignant neoplasm of prostate; Z82.49 Family history of ischemic heart disease and other diseases of the circulatory system; Z85.118 Personal history of other malignant neoplasm of bronchus and lung; Z86.73 Personal history of transient ischemic attack (TIA), and cerebral infarction without residual deficits; Z68.29 Body mass index [BMI] 29.0-29.9, adult
CPT/HCPCS: 36415; 71045; 80053; 81001; 83880; 84484; 85025; 85610; 87426; 87804; 94640; 96374; C9113; G0378

== ENCOUNTER 2023-01-22 06:04 | Inpatient (IN) | payer MEDICARE, MEDICAID ==
[~2023-01-22] VITALS: Ht 165.1 cm; Wt 65.3 kg
[2023-01-22] VITALS (12 sets, daily range): BP systolic 130–146; BP diastolic 77–101; PULSE 100–121; RESP 18–54; TEMP 97.1–98.3; O2SAT 88–97
[~2023-01-22 06:04] MED LIST changes: -ACE104IS NEB; -ALB5IS NEB; -IPRA0.00 IN; -IPRIH INH; -LEVO500T91 PO; -METH4PAK PO; -NIC21P TOP; -RESPMIS2 XX; -TIOTCAP IN; +UMEC1AER IN
[2023-01-22] MEDS ORDERED: TERBUTALINE SULFATE 1 MG/ML 1ML VIAL SC ONE (06:15)
[2023-01-22] MEDS ORDERED: methylPREDNISolone SOD SUCC 125 MG/2 ML VL IV ONE (06:15)
[2023-01-22] MEDS ORDERED: IPRATROPIUM BROM 0.5 MG/2.5ML INH SOL HHN ONE (06:15)
[2023-01-22] MEDS ORDERED: ALBUTEROL SULF 2.5 MG/0.5ML(0.5%) NEB SOLN HHN ONE (06:15)
[2023-01-22] MEDS ORDERED: ACETAMINOPHEN 325 MG TAB PO ONE (06:15)
[2023-01-22] MEDS ORDERED: ALBUTEROL SULF 2.5 MG/0.5ML(0.5%) NEB SOLN ONE (06:15)
[2023-01-22] MEDS ORDERED: AZITHROMYCIN 500MG/ 250ML 250 ML IV ONE (06:15)
[2023-01-22] MEDS ORDERED: ONDANSETRON HCL 4 MG/2 ML VIAL IV ONE (06:15)
[2023-01-22] MEDS: MAGNESIUM SULFATE 1GM/100ML 100 ML IV SCH ×4 (06:48→10:15)
[2023-01-22 06:59] LABS: Basophils # (auto) 0.1 10 ^3/uL (0-0.2); Basophils % (auto) 0.6 % (0.0-2.0); Eosinophils # (auto) 0.5 10 ^3/uL (0-0.8); Hemoglobin 16.3 g/dL (13.5-17.5); Lymphocytes # (auto) 1.3 10 ^3/uL (0.4-5.4); Lymphocytes % (auto) 11.1 % (10.0-50.0); Mean Corpuscular Hemoglobin 27.3 pg (28.0-32.0); Mean Corpuscular Hgb Conc. 32.1 g/dL (32.0-36.0); Mean Corpuscular Volume 85.3 fL (80.0-100.0); Monocytes % (auto) 8.1 % (0.0-12.0); Neutrophils # (auto) 8.9 10 ^3/uL (1.6-8.6); Neutrophils % (auto) 76.2 % (37.0-80.0); Nucleated Red Blood Cells % 0.2 %; Red Blood Cells 5.98 10^6/uL (4.5-5.90); Red Cell Distribution Width 17.2 % (11.8-14.3); White Blood Cell 11.7 10^3/uL (4.4-10.8)
[2023-01-22 07:14] LABS: Partial Thromboplastin Time 29.1 SEC (24.5-34.5); Prothrombin Time 10.5 sec (9.3-11.8)
[2023-01-22 07:18] LABS: Alanine Aminotransferase 32 U/L (7-40); Albumin 4.8 g/dL (3.2-4.8); Alkaline Phosphatase 130 U/L (46-116); Anion Gap 14 (5-15); Aspartate Aminotransferase 26 U/L (13-40); BUN/Creatinine Ratio 8.3 (10.0-20.0); Blood Urea Nitrogen 9 mg/dL (9-23); Calcium 9.9 mg/dL (8.5-10.1); Carbon Dioxide 20 mmol/L (20-30); Chloride 108 mmol/L (98-107); Glucose 144 mg/dL (74-106); Potassium 4.3 mmol/L (3.5-5.1); Sodium 142 mmol/L (136-145)
[2023-01-22 07:19] LABS: Bilirubin, Total 0.5 mg/dL (0.2-1.0)
[2023-01-22 07:32] LABS: Lactic Acid w/Reflex 2.3 mmol/L (0.4-2.0)
[2023-01-22 07:43] LABS: Base Excess -5.1 mmol/L (-2.0-2.0)
[2023-01-22 07:45] LABS: COVID19 ANTIGEN SOFIA FIA NEGATIVE (NEGATIVE)
[2023-01-22] MEDS ORDERED: cefTRIAXone 1GM/50ML D5W 50 ML IV ONE (07:45)
[2023-01-22] MEDS ORDERED: SODIUM CHLORIDE 0.9% 1,000 ML IV ONE ×2 (07:45)
[2023-01-22 07:46] LABS: Rapid Influenza A Negative (Negative); Rapid Influenza B Negative (Negative)
[2023-01-22] MEDS ORDERED: IOHEXOL 350 MG/ML 100ML IJ ONE (08:10)
[2023-01-22 09:36] LABS: Urine Bacteria NONE SEEN /hpf (None Seen); Urine Blood Negative /uL (Negative); Urine Clarity Clear (Clear); Urine Color Straw (Yellow); Urine Protein, UAD TRACE (Negative); Urine Urobilinogen Normal (Negative); Urine WBC 1 /hpf (0 - 3)
[2023-01-22] MEDS ORDERED: NITROGLYCERIN 0.4 MG SL TAB SL PRN (10:30)
[2023-01-22] MEDS ORDERED: HYDROcodone-ACET 5/325MG TAB PO PRN (10:30)
[2023-01-22] MEDS ORDERED: MORPHINE SULFATE INJ 2 MG/ml SYRG IV PRN (10:30)
[2023-01-22] MEDS ORDERED: ACETAMINOPHEN 325 MG TAB PO PRN (10:30)
[2023-01-22] MEDS ORDERED: DOCUSATE SOD 100 MG CAP PO PRN (10:30)
[2023-01-22] MEDS: NICOTINE 14 MG/24HR TOPICAL PATCH TD SCH (11:24)
[2023-01-22] MEDS: IPRATROPIUM BROM 0.5 MG/2.5ML INH SOL NEB SCH ×2 (12:01→18:34)
[2023-01-22] MEDS: ALBUTEROL SULF 2.5 MG/0.5ML(0.5%) NEB SOLN NEB SCH ×2 (12:01→18:34)
[2023-01-22] MEDS: SODIUM CHLOR 0.9% PF (SALINE LOCK) 10ML VIAL/SYR IV SCH ×2 (14:06→22:48)
[2023-01-22] MEDS: methylPREDNISolone SOD SUCC 40 MG/ML VL IV SCH (22:47)
[2023-01-22] MEDS: APIXABAN 5 MG TAB PO SCH (22:48)
[2023-01-23] VITALS (21 sets, daily range): BP systolic 113–138; BP diastolic 63–82; PULSE 77–108; RESP 16–22; TEMP 97.7–99.1; O2SAT 94–100
[2023-01-23] MEDS ORDERED: IPRATROPIUM BROM 0.5 MG/2.5ML INH SOL NEB SCH (02:00)
[2023-01-23] MEDS: IPRATROPIUM BROM 0.5 MG/2.5ML INH SOL NEB SCH ×6 (02:30→22:32)
[2023-01-23] MEDS: ALBUTEROL SULF 2.5 MG/0.5ML(0.5%) NEB SOLN NEB SCH ×6 (02:30→22:32)
[2023-01-23 06:49] LABS: Alanine Aminotransferase 25 U/L (7-40); Alkaline Phosphatase 103 U/L (46-116); Aspartate Aminotransferase 26 U/L (13-40); Bilirubin, Total 0.4 mg/dL (0.2-1.0); Calcium 9.4 mg/dL (8.5-10.1); Chloride 110 mmol/L (98-107); Glucose 148 mg/dL (74-106); Potassium 5.1 mmol/L (3.5-5.1); Sodium 139 mmol/L (136-145); Total Protein 6.3 g/dL (5.7-8.2)
[2023-01-23 06:54] LABS: Anion Gap 11 (5-15); BUN/Creatinine Ratio 7.8 (10.0-20.0); Blood Urea Nitrogen 8 mg/dL (9-23); Carbon Dioxide 18 mmol/L (20-30)
[2023-01-23] MEDS: SODIUM CHLOR 0.9% PF (SALINE LOCK) 10ML VIAL/SYR IV SCH ×3 (07:10→23:13)
[2023-01-23 08:44] LABS: Basophils # (auto) 0 10 ^3/uL (0-0.2); Basophils % (auto) 0.3 % (0.0-2.0); Eosinophils # (auto) 0 10 ^3/uL (0-0.8); Hematocrit 49.3 % (41.0-53.0); Hemoglobin 15.8 g/dL (13.5-17.5); Lymphocytes # (auto) 0.8 10 ^3/uL (0.4-5.4); Lymphocytes % (auto) 6.9 % (10.0-50.0); Mean Corpuscular Hemoglobin 27.4 pg (28.0-32.0); Mean Corpuscular Hgb Conc. 32.1 g/dL (32.0-36.0); Mean Corpuscular Volume 85.5 fL (80.0-100.0); Monocytes # (auto) 0.6 10 ^3/uL (0-1.3); Monocytes % (auto) 4.8 % (0.0-12.0); Neutrophils # (auto) 10.2 10 ^3/uL (1.6-8.6); Nucleated Red Blood Cells % 0.1 %; Red Blood Cells 5.77 10^6/uL (4.5-5.90); Red Cell Distribution Width 16.8 % (11.8-14.3); White Blood Cell 11.6 10^3/uL (4.4-10.8)
[2023-01-23] MEDS ORDERED: ENOXAPARIN SOD 30 MG/0.3 ML SYRINGE SC SCH (10:00)
[2023-01-23] MEDS ORDERED: PATIENTS OWN MEDICATION (Amlodipine Besylate 1 TAB) PO SCH (10:00)
[2023-01-23] MEDS: NICOTINE 14 MG/24HR TOPICAL PATCH TD SCH (10:00)
[2023-01-23] MEDS: APIXABAN 5 MG TAB PO SCH ×2 (10:28→23:13)
[2023-01-23] MEDS: AZITHROMYCIN 500MG/ 250ML 250 ML IV SCH (10:34)
[2023-01-23] MEDS: methylPREDNISolone SOD SUCC 40 MG/ML VL IV SCH ×2 (10:38→18:37)
[2023-01-23] MEDS: amLODIPine BESYLATE 5 MG TAB PO SCH (10:43)
[2023-01-23] MEDS ORDERED: VANCOMYCIN PER PHARMACY 0 MG IV SCH (14:00)
[2023-01-23] MEDS ORDERED: VANCOMYCIN 1GM/200ML 250 ML IV ONE (14:15)
[2023-01-23 14:54] LABS: Erythrocyte Sedimentation Rate 2 mm/hr (0-20)
[2023-01-24] VITALS (21 sets, daily range): BP systolic 126–149; BP diastolic 67–76; PULSE 88–111; RESP 17–22; TEMP 97.8–98.3; O2SAT 95–100
[2023-01-24] MEDS: ALBUTEROL SULF 2.5 MG/0.5ML(0.5%) NEB SOLN NEB SCH ×6 (02:06→22:08)
[2023-01-24] MEDS: IPRATROPIUM BROM 0.5 MG/2.5ML INH SOL NEB SCH ×6 (02:06→22:08)
[2023-01-24] MEDS: methylPREDNISolone SOD SUCC 40 MG/ML VL IV SCH ×3 (02:45→18:21)
[2023-01-24] MEDS: IPRATROPIUM BROM 0.5 MG/2.5ML INH SOL NEB PRN (04:16)
[2023-01-24] MEDS: ALBUTEROL SULF 2.5 MG/0.5ML(0.5%) NEB SOLN NEB PRN (04:16)
[2023-01-24] MEDS: SODIUM CHLOR 0.9% PF (SALINE LOCK) 10ML VIAL/SYR IV SCH ×3 (05:41→21:48)
[2023-01-24 05:46] LABS: Basophils # (auto) 0 10 ^3/uL (0-0.2); Basophils % (auto) 0.1 % (0.0-2.0); Eosinophils # (auto) 0 10 ^3/uL (0-0.8); Hematocrit 43.4 % (41.0-53.0); Lymphocytes # (auto) 0.4 10 ^3/uL (0.4-5.4); Lymphocytes % (auto) 3.1 % (10.0-50.0); Mean Corpuscular Hemoglobin 27.4 pg (28.0-32.0); Mean Corpuscular Hgb Conc. 32.3 g/dL (32.0-36.0); Mean Corpuscular Volume 84.7 fL (80.0-100.0); Monocytes # (auto) 0.4 10 ^3/uL (0-1.3); Monocytes % (auto) 3.1 % (0.0-12.0); Neutrophils # (auto) 12.7 10 ^3/uL (1.6-8.6); Neutrophils % (auto) 93.7 % (37.0-80.0); Red Blood Cells 5.12 10^6/uL (4.5-5.90); Red Cell Distribution Width 16.9 % (11.8-14.3); White Blood Cell 13.6 10^3/uL (4.4-10.8)
[2023-01-24] MEDS ORDERED: VANCOMYCIN 1GM/200ML 250 ML IV SCH (06:00)
[2023-01-24 06:20] LABS: Alanine Aminotransferase 27 U/L (7-40); Alkaline Phosphatase 95 U/L (46-116); Anion Gap 6 (5-15); Aspartate Aminotransferase 20 U/L (13-40); BUN/Creatinine Ratio 11.2 (10.0-20.0); Blood Urea Nitrogen 15 mg/dL (9-23); Calcium 9.1 mg/dL (8.7-10.4); Carbon Dioxide 23 mmol/L (20-30); Chloride 110 mmol/L (98-107); Glucose 166 mg/dL (74-106); Potassium 4.5 mmol/L (3.5-5.1); Sodium 139 mmol/L (136-145)
[2023-01-24 06:21] LABS: Bilirubin, Total 0.4 mg/dL (0.2-1.0); Total Protein 6.1 g/dL (5.7-8.2)
[2023-01-24] MEDS: AZITHROMYCIN 500MG/ 250ML 250 ML IV SCH (10:26)
[2023-01-24] MEDS: APIXABAN 5 MG TAB PO SCH ×2 (10:29→21:48)
[2023-01-24] MEDS: NICOTINE 14 MG/24HR TOPICAL PATCH TD SCH (10:29)
[2023-01-24] MEDS: amLODIPine BESYLATE 5 MG TAB PO SCH (10:33)
[2023-01-24] MEDS: SODIUM CHLORIDE 0.9% 1,000 ML IV SCH ×2 (13:02→21:48)
[2023-01-24] MEDS: LINEZOLID 600MG/300ML 300 ML IV SCH (21:48)
[2023-01-25] VITALS (21 sets, daily range): BP systolic 121–139; BP diastolic 71–82; PULSE 73–113; RESP 16–21; TEMP 97.5–98.2; O2SAT 93–100
[2023-01-25] MEDS: methylPREDNISolone SOD SUCC 40 MG/ML VL IV SCH ×3 (01:55→19:43)
[2023-01-25] MEDS: ALBUTEROL SULF 2.5 MG/0.5ML(0.5%) NEB SOLN NEB SCH ×7 (02:28→22:07)
[2023-01-25] MEDS: IPRATROPIUM BROM 0.5 MG/2.5ML INH SOL NEB SCH ×7 (02:28→22:07)
[2023-01-25] MEDS: SODIUM CHLOR 0.9% PF (SALINE LOCK) 10ML VIAL/SYR IV SCH ×3 (05:50→22:00)
[2023-01-25 06:56] LABS: Hematocrit 41.8 % (41.0-53.0); Hemoglobin 13.5 g/dL (13.5-17.5); Mean Corpuscular Hemoglobin 27.3 pg (28.0-32.0); Mean Corpuscular Hgb Conc. 32.4 g/dL (32.0-36.0); Mean Corpuscular Volume 84.3 fL (80.0-100.0); Red Blood Cells 4.96 10^6/uL (4.5-5.90); Red Cell Distribution Width 16.3 % (11.8-14.3); White Blood Cell 12.8 10^3/uL (4.4-10.8)
[2023-01-25 07:09] LABS: Alanine Aminotransferase 27 U/L (7-40); Alkaline Phosphatase 90 U/L (46-116); Anion Gap 7 (5-15); BUN/Creatinine Ratio 10.8 (10.0-20.0); Blood Urea Nitrogen 12 mg/dL (9-23); Calcium 9.1 mg/dL (8.7-10.4); Carbon Dioxide 26 mmol/L (20-30); Chloride 109 mmol/L (98-107); Glucose 124 mg/dL (74-106); Potassium 4.6 mmol/L (3.5-5.1); Sodium 142 mmol/L (136-145)
[2023-01-25 07:10] LABS: Albumin 3.8 g/dL (3.2-4.8)
[2023-01-25 07:11] LABS: Aspartate Aminotransferase 20 U/L (13-40); Bilirubin, Total 0.4 mg/dL (0.2-1.0); Total Protein 5.8 g/dL (5.7-8.2)
[2023-01-25 07:33] LABS: Band Neutrophils % (manual) 0; Basophils % (manual) 0 (0.0-2.0); Blast Cells 0; Eosinophils % (manual) 0 (0-7); Metamyelocytes % 0; Monocytes % (manual) 0 (0-12); Myelocytes % 0; Promyelocytes % 0; Reactive Lymphocytes 0
[2023-01-25] MEDS: SODIUM CHLORIDE 0.9% 1,000 ML IV SCH (07:45)
[2023-01-25] MEDS: LINEZOLID 600MG/300ML 300 ML IV SCH (10:23)
[2023-01-25] MEDS: amLODIPine BESYLATE 5 MG TAB PO SCH (10:24)
[2023-01-25] MEDS: AZITHROMYCIN 500MG/ 250ML 250 ML IV SCH (10:24)
[2023-01-25] MEDS: APIXABAN 5 MG TAB PO SCH ×2 (10:24→21:04)
[2023-01-25] MEDS: NICOTINE 14 MG/24HR TOPICAL PATCH TD SCH (10:24)
[2023-01-25 12:22] LABS: Lymphocytes % (manual) 5 (10.0-50.0)
[2023-01-25 12:23] LABS: Platelet Estimate Adequate
[2023-01-26] VITALS (21 sets, daily range): BP systolic 123–150; BP diastolic 73–91; PULSE 65–113; RESP 18–25; TEMP 98–98.6; O2SAT 93–100
[2023-01-26] MEDS: IPRATROPIUM BROM 0.5 MG/2.5ML INH SOL NEB SCH ×6 (02:32→21:09)
[2023-01-26] MEDS: ALBUTEROL SULF 2.5 MG/0.5ML(0.5%) NEB SOLN NEB SCH ×6 (02:32→21:09)
[2023-01-26] MEDS: methylPREDNISolone SOD SUCC 40 MG/ML VL IV SCH ×3 (02:33→18:04)
[2023-01-26] MEDS: SODIUM CHLOR 0.9% PF (SALINE LOCK) 10ML VIAL/SYR IV SCH ×3 (06:00→21:01)
[2023-01-26 06:04] LABS: Basophils # (auto) 0 10 ^3/uL (0-0.2); Eosinophils # (auto) 0 10 ^3/uL (0-0.8); Hematocrit 42.1 % (41.0-53.0); Hemoglobin 13.8 g/dL (13.5-17.5); Lymphocytes # (auto) 0.5 10 ^3/uL (0.4-5.4); Lymphocytes % (auto) 4.6 % (10.0-50.0); Mean Corpuscular Hemoglobin 27.7 pg (28.0-32.0); Mean Corpuscular Hgb Conc. 32.9 g/dL (32.0-36.0); Mean Corpuscular Volume 84.3 fL (80.0-100.0); Monocytes # (auto) 0.5 10 ^3/uL (0-1.3); Monocytes % (auto) 4.6 % (0.0-12.0); Neutrophils # (auto) 10.8 10 ^3/uL (1.6-8.6); Neutrophils % (auto) 90.8 % (37.0-80.0); Nucleated Red Blood Cells % 0.1 %; Red Cell Distribution Width 16.3 % (11.8-14.3); White Blood Cell 11.9 10^3/uL (4.4-10.8)
[2023-01-26 06:16] LABS: Anion Gap 6 (5-15); Carbon Dioxide 28 mmol/L (20-30); Chloride 109 mmol/L (98-107); Potassium 5.1 mmol/L (3.5-5.1); Sodium 143 mmol/L (136-145)
[2023-01-26 06:17] LABS: Calcium 9.3 mg/dL (8.5-10.1)
[2023-01-26 06:22] LABS: BUN/Creatinine Ratio 12.2 (10.0-20.0); Blood Urea Nitrogen 15 mg/dL (9-23); Glucose 122 mg/dL (74-106)
[2023-01-26] MEDS: NICOTINE 14 MG/24HR TOPICAL PATCH TD SCH (09:47)
[2023-01-26] MEDS: APIXABAN 5 MG TAB PO SCH ×2 (09:48→21:01)
[2023-01-26] MEDS: AZITHROMYCIN 500MG/ 250ML 250 ML IV SCH (09:48)
[2023-01-26] MEDS: PANTOPRAZOLE 40 MG TAB PO SCH (09:48)
[2023-01-26] MEDS: amLODIPine BESYLATE 5 MG TAB PO SCH (09:48)
[2023-01-26] MEDS ORDERED: FUROSEMIDE 20 MG/2 ML VIAL IV ONE (11:45)
[2023-01-27] VITALS (21 sets, daily range): BP systolic 99–149; BP diastolic 74–82; PULSE 74–100; RESP 16–22; TEMP 97.6–98.6; O2SAT 92–100
[2023-01-27] MEDS: IPRATROPIUM BROM 0.5 MG/2.5ML INH SOL NEB SCH ×6 (01:56→22:22)
[2023-01-27] MEDS: ALBUTEROL SULF 2.5 MG/0.5ML(0.5%) NEB SOLN NEB SCH ×6 (01:57→22:22)
[2023-01-27] MEDS: methylPREDNISolone SOD SUCC 40 MG/ML VL IV SCH ×3 (02:50→17:24)
[2023-01-27] MEDS: SODIUM CHLOR 0.9% PF (SALINE LOCK) 10ML VIAL/SYR IV SCH ×3 (06:00→22:00)
[2023-01-27 06:50] LABS: Basophils # (auto) 0 10 ^3/uL (0-0.2); Basophils % (auto) 0.1 % (0.0-2.0); Eosinophils # (auto) 0 10 ^3/uL (0-0.8); Hematocrit 44.2 % (41.0-53.0); Hemoglobin 14.3 g/dL (13.5-17.5); Lymphocytes # (auto) 0.8 10 ^3/uL (0.4-5.4); Mean Corpuscular Hemoglobin 27.3 pg (28.0-32.0); Mean Corpuscular Hgb Conc. 32.4 g/dL (32.0-36.0); Mean Corpuscular Volume 84.1 fL (80.0-100.0); Monocytes # (auto) 0.5 10 ^3/uL (0-1.3); Neutrophils # (auto) 11.3 10 ^3/uL (1.6-8.6); Neutrophils % (auto) 89.9 % (37.0-80.0); Nucleated Red Blood Cells % 0.1 %; Red Blood Cells 5.26 10^6/uL (4.5-5.90); Red Cell Distribution Width 16.5 % (11.8-14.3); White Blood Cell 12.6 10^3/uL (4.4-10.8)
[2023-01-27 06:53] LABS: Chloride 105 mmol/L (98-107); Potassium 4.5 mmol/L (3.5-5.1); Sodium 139 mmol/L (136-145)
[2023-01-27 06:54] LABS: Anion Gap 6 (5-15); Calcium 9.1 mg/dL (8.7-10.4); Carbon Dioxide 28 mmol/L (20-30)
[2023-01-27 06:59] LABS: BUN/Creatinine Ratio 12.3 (10.0-20.0); Blood Urea Nitrogen 14 mg/dL (9-23); Glucose 143 mg/dL (74-106)
[2023-01-27] MEDS: AZITHROMYCIN 500MG/ 250ML 250 ML IV SCH (10:16)
[2023-01-27] MEDS: PANTOPRAZOLE 40 MG TAB PO SCH (10:16)
[2023-01-27] MEDS: NICOTINE 14 MG/24HR TOPICAL PATCH TD SCH (10:17)
[2023-01-27] MEDS: APIXABAN 5 MG TAB PO SCH ×2 (10:17→21:40)
[2023-01-27] MEDS: amLODIPine BESYLATE 5 MG TAB PO SCH (10:17)
[2023-01-27] MEDS: FUROSEMIDE 20 MG/2 ML VIAL IV SCH (10:18)
[2023-01-27] MEDS: ALBUTEROL SULF 2.5 MG/0.5ML(0.5%) NEB SOLN NEB PRN (20:39)
[2023-01-27] MEDS: IPRATROPIUM BROM 0.5 MG/2.5ML INH SOL NEB PRN (20:39)
[2023-01-28] VITALS (20 sets, daily range): BP systolic 115–138; BP diastolic 74–83; PULSE 77–100; RESP 12–20; TEMP 98–99; O2SAT 92–99
[2023-01-28] MEDS: ALBUTEROL SULF 2.5 MG/0.5ML(0.5%) NEB SOLN NEB SCH ×6 (02:00→22:41)
[2023-01-28] MEDS: IPRATROPIUM BROM 0.5 MG/2.5ML INH SOL NEB SCH ×6 (02:00→22:41)
[2023-01-28] MEDS: methylPREDNISolone SOD SUCC 40 MG/ML VL IV SCH ×2 (04:42→09:49)
[2023-01-28] MEDS: SODIUM CHLOR 0.9% PF (SALINE LOCK) 10ML VIAL/SYR IV SCH ×3 (04:43→21:35)
[2023-01-28 06:53] LABS: Basophils # (auto) 0 10 ^3/uL (0-0.2); Basophils % (auto) 0.1 % (0.0-2.0); Eosinophils # (auto) 0.1 10 ^3/uL (0-0.8); Eosinophils % (auto) 0.5 % (0.0-7.0); Hematocrit 43.8 % (41.0-53.0); Hemoglobin 14.3 g/dL (13.5-17.5); Lymphocytes # (auto) 0.9 10 ^3/uL (0.4-5.4); Lymphocytes % (auto) 6.7 % (10.0-50.0); Mean Corpuscular Hemoglobin 27.2 pg (28.0-32.0); Mean Corpuscular Hgb Conc. 32.5 g/dL (32.0-36.0); Mean Corpuscular Volume 83.5 fL (80.0-100.0); Monocytes # (auto) 1.1 10 ^3/uL (0-1.3); Neutrophils # (auto) 11.3 10 ^3/uL (1.6-8.6); Neutrophils % (auto) 84.7 % (37.0-80.0); Red Blood Cells 5.25 10^6/uL (4.5-5.90); Red Cell Distribution Width 16.2 % (11.8-14.3); White Blood Cell 13.3 10^3/uL (4.4-10.8)
[2023-01-28 07:10] LABS: Chloride 104 mmol/L (98-107); Potassium 4.3 mmol/L (3.5-5.1); Sodium 138 mmol/L (136-145)
[2023-01-28 07:11] LABS: Anion Gap 7 (5-15); Calcium 9.2 mg/dL (8.5-10.1); Carbon Dioxide 27 mmol/L (20-30)
[2023-01-28 07:12] LABS: Basophils % (manual) 0 (0.0-2.0); Blast Cells 0; Metamyelocytes % 0; Myelocytes % 0; Promyelocytes % 0; Reactive Lymphocytes 0
[2023-01-28 07:16] LABS: Blood Urea Nitrogen 15 mg/dL (9-23); Glucose 120 mg/dL (74-106)
[2023-01-28 09:01] LABS: Band Neutrophils % (manual) 5; Eosinophils % (manual) 1 (0-7); Lymphocytes % (manual) 9 (10.0-50.0); Monocytes % (manual) 9 (0-12)
[2023-01-28 09:02] LABS: Anisocytosis Slight; Platelet Estimate Adequate
[2023-01-28 09:03] LABS: Nucleated Red Blood Cells % 0.4 %
[2023-01-28] MEDS: NICOTINE 14 MG/24HR TOPICAL PATCH TD SCH (09:47)
[2023-01-28] MEDS: amLODIPine BESYLATE 5 MG TAB PO SCH (09:48)
[2023-01-28] MEDS: FUROSEMIDE 20 MG/2 ML VIAL IV SCH (09:49)
[2023-01-28] MEDS: PANTOPRAZOLE 40 MG TAB PO SCH (09:49)
[2023-01-28] MEDS: APIXABAN 5 MG TAB PO SCH ×2 (09:49→21:35)
[2023-01-28] MEDS: AZITHROMYCIN 500MG/ 250ML 250 ML IV SCH (09:50)
[2023-01-29] VITALS (13 sets, daily range): BP systolic 112–130; BP diastolic 74–83; PULSE 76–93; RESP 16–20; TEMP 97.4–98.3; O2SAT 92–100
[2023-01-29] MEDS: ALBUTEROL SULF 2.5 MG/0.5ML(0.5%) NEB SOLN NEB SCH ×4 (02:08→14:02)
[2023-01-29] MEDS: IPRATROPIUM BROM 0.5 MG/2.5ML INH SOL NEB SCH ×4 (02:08→14:02)
[2023-01-29 06:12] LABS: Hemoglobin 15.3 g/dL (13.5-17.5); Mean Corpuscular Hemoglobin 27.7 pg (28.0-32.0); Mean Corpuscular Hgb Conc. 32.6 g/dL (32.0-36.0); Mean Corpuscular Volume 85.1 fL (80.0-100.0); Red Blood Cells 5.52 10^6/uL (4.5-5.90); Red Cell Distribution Width 16.2 % (11.8-14.3); White Blood Cell 15.4 10^3/uL (4.4-10.8)
[2023-01-29 06:16] LABS: Band Neutrophils % (manual) 0; Basophils % (manual) 0 (0.0-2.0); Blast Cells 0; Eosinophils % (manual) 0 (0-7); Metamyelocytes % 0; Promyelocytes % 0; Reactive Lymphocytes 0
[2023-01-29 06:18] LABS: Anion Gap 6 (5-15); Carbon Dioxide 30 mmol/L (20-30); Chloride 102 mmol/L (98-107); Potassium 4.5 mmol/L (3.5-5.1); Sodium 138 mmol/L (136-145)
[2023-01-29 06:19] LABS: Calcium 9.4 mg/dL (8.5-10.1)
[2023-01-29 06:24] LABS: BUN/Creatinine Ratio 14.2 (10.0-20.0); Blood Urea Nitrogen 17 mg/dL (9-23); Glucose 96 mg/dL (74-106)
[2023-01-29] MEDS: SODIUM CHLOR 0.9% PF (SALINE LOCK) 10ML VIAL/SYR IV SCH ×2 (06:29→14:00)
[2023-01-29 06:57] LABS: Lymphocytes % (manual) 7 (10.0-50.0); Monocytes % (manual) 7 (0-12); Myelocytes % 2; Platelet Estimate Adequate
[2023-01-29] MEDS ORDERED: methylPREDNISolone SOD SUCC 40 MG/ML VL IV SCH (10:00)
[2023-01-29] MEDS: FUROSEMIDE 20 MG/2 ML VIAL IV SCH (11:19)
[2023-01-29] MEDS: AZITHROMYCIN 500MG/ 250ML 250 ML IV SCH (11:21)
[2023-01-29] MEDS: amLODIPine BESYLATE 5 MG TAB PO SCH (11:26)
[2023-01-29] MEDS: APIXABAN 5 MG TAB PO SCH (11:26)
[2023-01-29] MEDS: NICOTINE 14 MG/24HR TOPICAL PATCH TD SCH (11:27)
[2023-01-29] MEDS ORDERED: PRED20TA2 PO (11:30)
[2023-01-29] MEDS: PANTOPRAZOLE 40 MG TAB PO SCH (11:31)
== END 2023-01-29 18:30 | disposition home or self-care (01) | DRG 137 ==
LOC: EDBD 06:04 → ER 06:16 → TELE-EAST 10:28 → TELE 10:28 → TELE-EAST 18:18
PROVIDERS: ADMIT Nurse Practitioner Family; ATTEND Internal Medicine Pulmonary Disease
PROC: 5A09357 Assistance with Respiratory Ventilation, Less than 24 Consecutive Hours, Continuous Positive Airway Pressure (ICD-10-PCS; principal; 2023-01-22)
DX: J15.69 Pneumonia due to other Gram-negative bacteria (principal); J96.01 Acute respiratory failure with hypoxia; N17.9 Acute kidney failure, unspecified; R78.81 Bacteremia; J44.0 Chronic obstructive pulmonary disease with (acute) lower respiratory infection; I69.354 Hemiplegia and hemiparesis following cerebral infarction affecting left non-dominant side; J44.1 Chronic obstructive pulmonary disease with (acute) exacerbation; D72.829 Elevated white blood cell count, unspecified; B95.8 Unspecified staphylococcus as the cause of diseases classified elsewhere; Z20.822 Contact with and (suspected) exposure to COVID-19; F17.210 Nicotine dependence, cigarettes, uncomplicated; I10 Essential (primary) hypertension; Z85.118 Personal history of other malignant neoplasm of bronchus and lung; Z90.2 Acquired absence of lung [part of]; I25.2 Old myocardial infarction
CPT/HCPCS: 36415; 36600; 71045; 71275; 80048; 80053; 81001; 82805; 82962; 83605; 83735; 83880; 84484; 85007; 85025; 85027; 85610; 85652; 85730; 87040; 87077; 87186; 87426; 87804; 94640; 94644; 94660; 96365; 96375; 99291; G0378; J0696

== ENCOUNTER 2023-03-30 18:30 | Emergency (ER) | payer MEDICARE, MEDICAID ==
[~2023-03-30] VITALS: Ht 165.1 cm; Wt 75.0 kg
[~2023-03-30 18:30] MED LIST changes: -AZIT500T66 PO
[2023-03-30] MEDS: DexAMETHasone SOD PHOS 10MG/1ML VIAL INJ IV ONE (19:00)
[2023-03-30 19:15] LABS: Basophils # (auto) 0.1 10 ^3/uL (0-0.2); Eosinophils # (auto) 0.6 10 ^3/uL (0-0.8); Eosinophils % (auto) 6.2 % (0.0-7.0); Hematocrit 46.2 % (41.0-53.0); Hemoglobin 14.9 g/dL (13.5-17.5); Lymphocytes # (auto) 2.1 10 ^3/uL (0.4-5.4); Lymphocytes % (auto) 21.8 % (10.0-50.0); Mean Corpuscular Hemoglobin 27.5 pg (28.0-32.0); Mean Corpuscular Hgb Conc. 32.3 g/dL (32.0-36.0); Mean Corpuscular Volume 85.2 fL (80.0-100.0); Monocytes # (auto) 0.8 10 ^3/uL (0-1.3); Monocytes % (auto) 8.5 % (0.0-12.0); Neutrophils # (auto) 5.9 10 ^3/uL (1.6-8.6); Neutrophils % (auto) 62.5 % (37.0-80.0); Nucleated Red Blood Cells % 0.1 %; Red Blood Cells 5.42 10^6/uL (4.5-5.90); Red Cell Distribution Width 17.1 % (11.8-14.3); White Blood Cell 9.5 10^3/uL (4.4-10.8)
[2023-03-30] MEDS: IPRATROPIUM BROM 0.5 MG/2.5ML INH SOL NEB ONE (19:20)
[2023-03-30] MEDS: ALBUTEROL SULF 2.5 MG/0.5ML(0.5%) NEB SOLN NEB ONE (19:21)
[2023-03-30 19:25] LABS: Chloride 110 mmol/L (98-107); Potassium 4.6 mmol/L (3.5-5.1); Sodium 145 mmol/L (136-145)
[2023-03-30 19:26] LABS: Anion Gap 6 (5-15); Calcium 9.3 mg/dL (8.7-10.4); Carbon Dioxide 29 mmol/L (20-30)
[2023-03-30 19:31] LABS: Blood Urea Nitrogen 13 mg/dL (9-23); Glucose 127 mg/dL (74-106)
[2023-03-30 19:41] LABS: Lactic Acid w/Reflex 2.1 mmol/L (0.4-2.0)
[2023-03-30] MEDS: SODIUM CHLORIDE 0.9% 1,000 ML IV ONE (20:00)
[2023-03-31] MEDS ORDERED: ALBU108A5 IN (00:43)
[2023-03-31 01:35] VITALS: BP 149/77; PULSE 78; RESP 13; TEMP 98.2; O2SAT 95
== END 2023-03-31 02:06 | disposition home or self-care (01) ==
LOC: EDBD 18:30 → ER 18:30
DX: J45.901 Unspecified asthma with (acute) exacerbation (principal); I10 Essential (primary) hypertension; Z86.73 Personal history of transient ischemic attack (TIA), and cerebral infarction without residual deficits
CPT/HCPCS: 36415; 71045; 80048; 83605; 83880; 84484; 85025; 85379; 93005; 94640; 99285; J7644

== ENCOUNTER 2023-04-06 03:25 | Inpatient (IN) | payer MEDICARE, MEDICAID ==
[~2023-04-06] VITALS: Ht 165.1 cm; Wt 67.1 kg
[2023-04-06] VITALS (10 sets, daily range): BP systolic 129–164; BP diastolic 73–88; PULSE 74–123; RESP 16–99; TEMP 98.4–99; O2SAT 93–100
[~2023-04-06 03:25] MED LIST changes: +ALBU108A5 IN
[2023-04-06] MEDS: ALBUTEROL SULF 2.5 MG/0.5ML(0.5%) NEB SOLN ONE (03:38)
[2023-04-06] MEDS: IPRATROPIUM BROM 0.5 MG/2.5ML INH SOL ONE (03:38)
[2023-04-06] MEDS: ALBUTEROL SULF 2.5 MG/0.5ML(0.5%) NEB SOLN NEB ONE (03:40)
[2023-04-06] MEDS: IPRATROPIUM BROM 0.5 MG/2.5ML INH SOL NEB ONE (03:41)
[2023-04-06 03:47] LABS: Basophils # (auto) 0.1 10 ^3/uL (0-0.2); Basophils % (auto) 1.3 % (0.0-2.0); Eosinophils # (auto) 0.8 10 ^3/uL (0-0.8); Eosinophils % (auto) 8.7 % (0.0-7.0); Hematocrit 45.5 % (41.0-53.0); Hemoglobin 14.7 g/dL (13.5-17.5); Lymphocytes # (auto) 2.1 10 ^3/uL (0.4-5.4); Mean Corpuscular Hemoglobin 27.4 pg (28.0-32.0); Mean Corpuscular Hgb Conc. 32.3 g/dL (32.0-36.0); Mean Corpuscular Volume 84.9 fL (80.0-100.0); Monocytes # (auto) 0.8 10 ^3/uL (0-1.3); Monocytes % (auto) 8.7 % (0.0-12.0); Neutrophils # (auto) 5.6 10 ^3/uL (1.6-8.6); Neutrophils % (auto) 59.3 % (37.0-80.0); Red Blood Cells 5.35 10^6/uL (4.5-5.90); Red Cell Distribution Width 17.1 % (11.8-14.3); White Blood Cell 9.4 10^3/uL (4.4-10.8)
[2023-04-06] MEDS: methylPREDNISolone SOD SUCC 125 MG/2 ML VL IV ONE (03:57)
[2023-04-06 04:00] LABS: Chloride 111 mmol/L (98-107); Potassium 4.2 mmol/L (3.5-5.1); Sodium 145 mmol/L (136-145)
[2023-04-06 04:01] LABS: Anion Gap 6 (5-15); Carbon Dioxide 28 mmol/L (20-30)
[2023-04-06 04:06] LABS: BUN/Creatinine Ratio 6.9 (10.0-20.0); Blood Urea Nitrogen 8 mg/dL (9-23); Glucose 103 mg/dL (74-106)
[2023-04-06] MEDS ORDERED: NITROGLYCERIN 0.4 MG SL TAB SL PRN (06:00)
[2023-04-06] MEDS ORDERED: ONDANSETRON HCL 4 MG/2 ML VIAL IV PRN (06:00)
[2023-04-06] MEDS ORDERED: MORPHINE SULFATE INJ 2 MG/ml SYRG IV PRN (06:00)
[2023-04-06] MEDS ORDERED: ACETAMINOPHEN 325 MG TAB PO PRN (06:00)
[2023-04-06] MEDS: cefTRIAXone 1GM/50ML D5W 50 ML IV SCH (09:46)
[2023-04-06] MEDS: methylPREDNISolone SOD SUCC 40 MG/ML VL IV SCH (10:34)
[2023-04-06] MEDS: amLODIPine BESYLATE 5 MG TAB PO SCH (10:34)
[2023-04-06] MEDS: APIXABAN 5 MG TAB PO SCH (10:34)
[2023-04-06] MEDS: MEMANTINE HCL 5 MG TAB PO SCH (10:35)
[2023-04-06] MEDS: AZITHROMYCIN 500MG/ 250ML 250 ML IV SCH (11:34)
[2023-04-06] MEDS: ALBUTEROL SULF 2.5 MG/0.5ML(0.5%) NEB SOLN NEB PRN (11:40)
[2023-04-06] MEDS: IPRATROPIUM BROM 0.5 MG/2.5ML INH SOL NEB PRN (11:40)
[2023-04-06 13:00] LABS: Rapid Influenza A Negative (Negative); Rapid Influenza B Negative (Negative)
[2023-04-06 13:01] LABS: COVID19 ANTIGEN SOFIA FIA NEGATIVE (NEGATIVE)
[2023-04-06 13:35] LABS: Basophils # (auto) 0 10 ^3/uL (0-0.2); Basophils % (auto) 0.2 % (0.0-2.0); Eosinophils # (auto) 0 10 ^3/uL (0-0.8); Hematocrit 46.4 % (41.0-53.0); Hemoglobin 14.7 g/dL (13.5-17.5); Lymphocytes # (auto) 0.5 10 ^3/uL (0.4-5.4); Mean Corpuscular Hemoglobin 27.2 pg (28.0-32.0); Mean Corpuscular Hgb Conc. 31.8 g/dL (32.0-36.0); Mean Corpuscular Volume 85.5 fL (80.0-100.0); Monocytes # (auto) 0.1 10 ^3/uL (0-1.3); Monocytes % (auto) 0.7 % (0.0-12.0); Neutrophils # (auto) 8.7 10 ^3/uL (1.6-8.6); Neutrophils % (auto) 94.1 % (37.0-80.0); Nucleated Red Blood Cells % 0.1 %; Red Blood Cells 5.42 10^6/uL (4.5-5.90); Red Cell Distribution Width 17.1 % (11.8-14.3); White Blood Cell 9.3 10^3/uL (4.4-10.8)
[2023-04-06] MEDS ORDERED: MEMA1TAB5 PO (17:43)
[2023-04-06] MEDS: DOXYCYCLINE 100MG/250ML 250 ML IV SCH (22:15)
[2023-04-07] VITALS (7 sets, daily range): BP systolic 104–129; BP diastolic 64–77; PULSE 78–90; RESP 18–19; TEMP 36.7; O2SAT 96–98
[2023-04-07 05:47] LABS: Basophils # (auto) 0 10 ^3/uL (0-0.2); Eosinophils # (auto) 0 10 ^3/uL (0-0.8)
[2023-04-07 05:49] LABS: Basophils % (auto) 0.1 % (0.0-2.0); Hematocrit 43.7 % (41.0-53.0); Lymphocytes # (auto) 0.8 10 ^3/uL (0.4-5.4); Lymphocytes % (auto) 4.8 % (10.0-50.0); Mean Corpuscular Hemoglobin 27.2 pg (28.0-32.0); Mean Corpuscular Hgb Conc. 32.1 g/dL (32.0-36.0); Mean Corpuscular Volume 84.6 fL (80.0-100.0); Monocytes # (auto) 0.6 10 ^3/uL (0-1.3); Monocytes % (auto) 3.5 % (0.0-12.0); Neutrophils # (auto) 14.8 10 ^3/uL (1.6-8.6); Neutrophils % (auto) 91.6 % (37.0-80.0); Red Blood Cells 5.16 10^6/uL (4.5-5.90); Red Cell Distribution Width 16.8 % (11.8-14.3); White Blood Cell 16.1 10^3/uL (4.4-10.8)
[2023-04-07 05:55] LABS: Chloride 109 mmol/L (98-107); Potassium 4.7 mmol/L (3.5-5.1); Sodium 140 mmol/L (136-145)
[2023-04-07 05:56] LABS: Anion Gap 7 (5-15); Calcium 9.1 mg/dL (8.7-10.4); Carbon Dioxide 24 mmol/L (20-30)
[2023-04-07 06:01] LABS: BUN/Creatinine Ratio 11.4 (10.0-20.0); Blood Urea Nitrogen 13 mg/dL (9-23); Glucose 189 mg/dL (74-106)
[2023-04-07 06:02] LABS: Magnesium 2.1 mg/dL (1.6-2.6)
[2023-04-07] MEDS ORDERED: DOXY-286 PO (09:41)
[2023-04-07] MEDS ORDERED: ALBUAER3 IN (09:41)
[2023-04-07] MEDS ORDERED: METH4PAK PO (09:41)
[2023-04-07] MEDS ORDERED: TIOTCAP IN (09:41)
[2023-04-07] MEDS ORDERED: NIC21P TOP (09:41)
[2023-04-07] MEDS: methylPREDNISolone SOD SUCC 40 MG/ML VL IV SCH (12:05)
[2023-04-07] MEDS: NICOTINE 21MG/24 HR TOPICAL PATCH TD SCH (12:26)
[2023-04-07] MEDS ORDERED: ALBU108A5 INH (14:27)
== END 2023-04-07 17:33 | disposition home or self-care (01) | DRG 140 ==
LOC: EDBD 03:25 → ER 03:25 → TELE 06:00 → TELE-WESTW 06:05
PROVIDERS: ADMIT Internal Medicine Geriatric Medicine; ATTEND Internal Medicine Geriatric Medicine
DX: J44.1 Chronic obstructive pulmonary disease with (acute) exacerbation (principal); J96.21 Acute and chronic respiratory failure with hypoxia; J15.69 Pneumonia due to other Gram-negative bacteria; I10 Essential (primary) hypertension; F17.210 Nicotine dependence, cigarettes, uncomplicated; Z86.73 Personal history of transient ischemic attack (TIA), and cerebral infarction without residual deficits; J15.9 Unspecified bacterial pneumonia; J44.0 Chronic obstructive pulmonary disease with (acute) lower respiratory infection
CPT/HCPCS: 36415; 71045; 80048; 83036; 83735; 83880; 84443; 84484; 85025; 87081; 87426; 87804; 93005; 93306; 93970; 94640; 94644; 96365; 96367; 96375; 99291; G0378; J3490

== ENCOUNTER 2023-05-03 13:52 | Inpatient (IN) | payer MEDICARE, MEDICAID ==
[~2023-05-03] VITALS: Ht 167.6 cm; Wt 66.1 kg
[~2023-05-03 13:52] MED LIST changes: -ALBU108A5 IN; +ALBU108A5 INH; +DOXY-286 PO; +MEMA1TAB5 PO; +METH4PAK PO; +NIC21P TOP; -PRED20TA2 PO; +TIOTCAP IN
[2023-05-03 14:44] LABS: Basophils # (auto) 0.1 10 ^3/uL (0-0.2); Basophils % (auto) 0.7 % (0.0-2.0); Eosinophils # (auto) 0.1 10 ^3/uL (0-0.8); Eosinophils % (auto) 0.9 % (0.0-7.0); Hematocrit 46.5 % (41.0-53.0); Lymphocytes % (auto) 10.9 % (10.0-50.0); Mean Corpuscular Hemoglobin 27.3 pg (28.0-32.0); Mean Corpuscular Hgb Conc. 32.2 g/dL (32.0-36.0); Monocytes # (auto) 0.5 10 ^3/uL (0-1.3); Monocytes % (auto) 5.5 % (0.0-12.0); Neutrophils # (auto) 7.7 10 ^3/uL (1.6-8.6); Nucleated Red Blood Cells % 0.1 %; Red Blood Cells 5.47 10^6/uL (4.5-5.90); Red Cell Distribution Width 16.1 % (11.8-14.3); White Blood Cell 9.4 10^3/uL (4.4-10.8)
[2023-05-03] MEDS: FUROSEMIDE 40 MG/4 ML VIAL IV ONE (15:01)
[2023-05-03 15:02] LABS: Alanine Aminotransferase 19 U/L (7-40); Albumin 4.3 g/dL (3.2-4.8); Alkaline Phosphatase 110 U/L (46-116); Anion Gap 2 (5-15); Aspartate Aminotransferase 18 U/L (13-40); BUN/Creatinine Ratio 10.1 (10.0-20.0); Blood Urea Nitrogen 11 mg/dL (9-23); Calcium 9.3 mg/dL (8.5-10.1); Carbon Dioxide 29 mmol/L (20-30); Chloride 110 mmol/L (98-107); Glucose 129 mg/dL (74-106); Potassium 4.6 mmol/L (3.5-5.1); Sodium 141 mmol/L (136-145)
[2023-05-03 15:03] LABS: Bilirubin, Total 0.4 mg/dL (0.2-1.0); INR 1.04 (0.9-1.15); Partial Thromboplastin Time 29.6 SEC (24.5-34.5); Prothrombin Time 10.9 sec (9.3-11.8); Total Protein 6.3 g/dL (5.7-8.2)
[2023-05-03 15:05] VITALS: PULSE 78; RESP 22; O2SAT 100
[2023-05-03 17:10] LABS: Urine Bacteria NONE SEEN /hpf (None Seen); Urine Blood Negative /uL (Negative); Urine Clarity Clear (Clear); Urine Color Colorless (Yellow); Urine Mucus FEW (None Seen); Urine Protein, UAD Negative (Negative); Urine Specific Gravity 1.012 (1.001-1.035); Urine Urobilinogen Normal (Negative); Urine WBC <1 /hpf (0 - 3)
[2023-05-03] MEDS: levoFLOXacin 750MG 150 ML IV ONE (17:38)
[2023-05-03] MEDS ORDERED: MORPHINE SULFATE INJ 2 MG/ml SYRG IV PRN (19:00)
[2023-05-03] MEDS ORDERED: DOCUSATE SOD 100 MG CAP PO PRN (19:00)
[2023-05-03] MEDS ORDERED: HYDROcodone-ACET 5/325MG TAB PO PRN (19:00)
[2023-05-03] MEDS ORDERED: ONDANSETRON HCL 4 MG/2 ML VIAL IV PRN (19:00)
[2023-05-03] MEDS ORDERED: ACETAMINOPHEN 325 MG TAB PO PRN (19:00)
[2023-05-03 19:02] VITALS: BP 123/75; PULSE 16; RESP 12; TEMP 98.2; O2SAT 94
[2023-05-03 20:00] VITALS: PULSE 92; RESP 14; O2SAT 97
[2023-05-03] MEDS: APIXABAN 5 MG TAB PO SCH (22:26)
[2023-05-03] MEDS: MEMANTINE HCL 5 MG TAB PO SCH (22:26)
[2023-05-04] VITALS (21 sets, daily range): BP systolic 117–141; BP diastolic 65–86; PULSE 52–98; RESP 14–18; TEMP 98.1–98.6; O2SAT 94–100
[2023-05-04] MEDS: ALBUTEROL SULF 2.5 MG/0.5ML(0.5%) NEB SOLN NEB SCH (00:17)
[2023-05-04] MEDS: IPRATROPIUM BROM 0.5 MG/2.5ML INH SOL NEB SCH (00:17)
[2023-05-04 05:36] LABS: Basophils # (auto) 0.1 10 ^3/uL (0-0.2); Basophils % (auto) 0.7 % (0.0-2.0); Eosinophils # (auto) 0.4 10 ^3/uL (0-0.8); Eosinophils % (auto) 4.4 % (0.0-7.0); Hematocrit 43.7 % (41.0-53.0); Hemoglobin 14.6 g/dL (13.5-17.5); Lymphocytes # (auto) 1.7 10 ^3/uL (0.4-5.4); Mean Corpuscular Hemoglobin 28.3 pg (28.0-32.0); Mean Corpuscular Hgb Conc. 33.5 g/dL (32.0-36.0); Mean Corpuscular Volume 84.5 fL (80.0-100.0); Monocytes % (auto) 10.7 % (0.0-12.0); Neutrophils # (auto) 6.4 10 ^3/uL (1.6-8.6); Neutrophils % (auto) 66.2 % (37.0-80.0); Red Blood Cells 5.16 10^6/uL (4.5-5.90); Red Cell Distribution Width 15.9 % (11.8-14.3); White Blood Cell 9.7 10^3/uL (4.4-10.8)
[2023-05-04 05:49] LABS: Alanine Aminotransferase 16 U/L (7-40); Albumin 3.8 g/dL (3.2-4.8); Alkaline Phosphatase 95 U/L (46-116); Anion Gap 6 (5-15); Aspartate Aminotransferase 15 U/L (13-40); BUN/Creatinine Ratio 10.8 (10.0-20.0); Bilirubin, Total 0.5 mg/dL (0.2-1.0); Blood Urea Nitrogen 13 mg/dL (9-23); Calcium 9.3 mg/dL (8.7-10.4); Carbon Dioxide 29 mmol/L (20-30); Chloride 108 mmol/L (98-107); Glucose 85 mg/dL (74-106); Sodium 143 mmol/L (136-145); Total Protein 5.9 g/dL (5.7-8.2)
[2023-05-04] MEDS: amLODIPine BESYLATE 5 MG TAB PO SCH (11:04)
[2023-05-04] MEDS: NICOTINE 21MG/24 HR TOPICAL PATCH TD SCH (17:42)
[2023-05-04] MEDS: levoFLOXacin 750MG 150 ML IV SCH (17:42)
[2023-05-04] MEDS: BUDESONIDE (INHALATION) 0.5 MG/2 ML NEB NEB SCH (18:55)
[2023-05-05] VITALS (11 sets, daily range): BP systolic 116–138; BP diastolic 69–79; PULSE 69–84; RESP 16–20; TEMP 98.1–98.7; O2SAT 93–99
[2023-05-05] MEDS ORDERED: LEVO500T91 PO (13:03)
[2023-05-06 08:57] LABS: Hepatitis B Surface Antigen Negative (Negative)
[2023-05-06 09:18] LABS: Hepatitis C Antibody Negative (Negative)
== END 2023-05-05 16:40 | disposition home or self-care (01) | DRG 140 ==
LOC: EDBD 13:52 → ER 13:52 → OVERFLOW 18:53 → CENTRAL 18:53
PROVIDERS: ADMIT Nurse Practitioner Family; ATTEND Nurse Practitioner Acute Care
PROC: 5A09357 Assistance with Respiratory Ventilation, Less than 24 Consecutive Hours, Continuous Positive Airway Pressure (ICD-10-PCS; principal; 2023-05-03)
DX: J44.1 Chronic obstructive pulmonary disease with (acute) exacerbation (principal); J96.21 Acute and chronic respiratory failure with hypoxia; J15.69 Pneumonia due to other Gram-negative bacteria; R65.10 Systemic inflammatory response syndrome (SIRS) of non-infectious origin without acute organ dysfunction; J44.0 Chronic obstructive pulmonary disease with (acute) lower respiratory infection; J40 Bronchitis, not specified as acute or chronic; F03.90 Unspecified dementia, unspecified severity, without behavioral disturbance, psychotic disturbance, mood disturbance, and anxiety; I10 Essential (primary) hypertension; F17.210 Nicotine dependence, cigarettes, uncomplicated; Z85.118 Personal history of other malignant neoplasm of bronchus and lung; Z86.73 Personal history of transient ischemic attack (TIA), and cerebral infarction without residual deficits; Z90.2 Acquired absence of lung [part of]
CPT/HCPCS: 36415; 71045; 80053; 81001; 82140; 83735; 83880; 84484; 85025; 85379; 85610; 85730; 86803; 87340; 93005; 94640; 94660; 99291; G0378; J1956

== ENCOUNTER 2023-05-18 07:26 | Inpatient (IN) | payer MEDICARE, MEDICAID ==
[~2023-05-18] VITALS: Ht 165.1 cm; Wt 69.2 kg
[2023-05-18] VITALS (8 sets, daily range): BP systolic 129–145; BP diastolic 75–90; PULSE 82–107; RESP 19–20; TEMP 97.8–98.7; O2SAT 93–99
[~2023-05-18 07:26] MED LIST changes: -ALBUAER3 IN; -DOXY-286 PO; +LEVO500T91 PO; -METH4PAK PO
[2023-05-18] MEDS ORDERED: methylPREDNISolone SOD SUCC 125 MG/2 ML VL IV ONE (07:30)
[2023-05-18 07:57] LABS: Basophils # (auto) 0.1 10 ^3/uL (0-0.2); Basophils % (auto) 0.8 % (0.0-2.0); Eosinophils # (auto) 0.5 10 ^3/uL (0-0.8); Eosinophils % (auto) 4.6 % (0.0-7.0); Hematocrit 48.2 % (41.0-53.0); Hemoglobin 15.4 g/dL (13.5-17.5); Lymphocytes # (auto) 2.3 10 ^3/uL (0.4-5.4); Lymphocytes % (auto) 19.8 % (10.0-50.0); Mean Corpuscular Hemoglobin 27.3 pg (28.0-32.0); Mean Corpuscular Hgb Conc. 31.9 g/dL (32.0-36.0); Mean Corpuscular Volume 85.4 fL (80.0-100.0); Monocytes # (auto) 1.1 10 ^3/uL (0-1.3); Monocytes % (auto) 9.4 % (0.0-12.0); Neutrophils # (auto) 7.4 10 ^3/uL (1.6-8.6); Neutrophils % (auto) 65.4 % (37.0-80.0); Nucleated Red Blood Cells % 0.1 %; Red Blood Cells 5.64 10^6/uL (4.5-5.90); Red Cell Distribution Width 16.1 % (11.8-14.3); White Blood Cell 11.4 10^3/uL (4.4-10.8)
[2023-05-18 08:03] LABS: Chloride 112 mmol/L (98-107); Potassium 4.5 mmol/L (3.5-5.1); Sodium 145 mmol/L (136-145)
[2023-05-18 08:04] LABS: Anion Gap 2 (5-15); Calcium 9.4 mg/dL (8.5-10.1); Carbon Dioxide 31 mmol/L (20-30)
[2023-05-18 08:09] LABS: BUN/Creatinine Ratio 4.3 (10.0-20.0); Blood Urea Nitrogen 5 mg/dL (9-23); Glucose 99 mg/dL (74-106)
[2023-05-18] MEDS: methylPREDNISolone SOD SUCC 125 MG/2 ML VL IM ONE (08:22)
[2023-05-18 09:43] LABS: Urine Bacteria NONE SEEN /hpf (None Seen); Urine Blood Negative /uL (Negative); Urine Clarity Clear (Clear); Urine Color Colorless (Yellow); Urine Protein, UAD Negative (Negative); Urine Urobilinogen Normal (Negative); Urine WBC 1 /hpf (0 - 3)
[2023-05-18] MEDS ORDERED: DOCUSATE SOD 100 MG CAP PO PRN (10:00)
[2023-05-18] MEDS ORDERED: ALBUTEROL SULF 2.5 MG/0.5ML(0.5%) NEB SOLN NEB SCH (10:00)
[2023-05-18] MEDS ORDERED: MORPHINE SULFATE INJ 2 MG/ml SYRG IV PRN (10:00)
[2023-05-18] MEDS ORDERED: IPRATROPIUM BROM 0.5 MG/2.5ML INH SOL NEB SCH (10:00)
[2023-05-18] MEDS ORDERED: ONDANSETRON HCL 4 MG/2 ML VIAL IV PRN (10:00)
[2023-05-18] MEDS: NICOTINE 21MG/24 HR TOPICAL PATCH TD SCH (10:59)
[2023-05-18] MEDS: TIOTROPIUM BROMIDE MONOHYDRATE IN SCH (10:59)
[2023-05-18] MEDS: HANDIHALER IN SCH (10:59)
[2023-05-18] MEDS: APIXABAN 5 MG TAB PO SCH (10:59)
[2023-05-18] MEDS: UMECLIDINIUM IN SCH (10:59)
[2023-05-18] MEDS: VILANTEROL IN SCH (10:59)
[2023-05-18] MEDS: PANTOPRAZOLE 40 MG/10 ML VIAL INJ IV SCH (11:25)
[2023-05-18] MEDS: MEMANTINE HCL 5 MG TAB PO SCH (11:25)
[2023-05-18] MEDS: SODIUM CHLORIDE 0.9% 1,000 ML IV SCH (11:25)
[2023-05-18] MEDS: amLODIPine BESYLATE 5 MG TAB PO SCH (11:26)
[2023-05-18] MEDS: IPRATROPIUM BROM 0.5 MG/2.5ML INH SOL NEB SCH (12:00)
[2023-05-18] MEDS: ALBUTEROL SULF 2.5 MG/0.5ML(0.5%) NEB SOLN NEB SCH (12:00)
[2023-05-18] MEDS: methylPREDNISolone SOD SUCC 125 MG/2 ML VL IV SCH (18:07)
[2023-05-19] VITALS (15 sets, daily range): BP systolic 119–146; BP diastolic 68–83; PULSE 72–97; RESP 16–20; TEMP 97.9–98.3; O2SAT 94–100
[2023-05-19 07:28] LABS: Basophils # (auto) 0 10 ^3/uL (0-0.2); Basophils % (auto) 0.1 % (0.0-2.0); Eosinophils # (auto) 0 10 ^3/uL (0-0.8); Hematocrit 44.4 % (41.0-53.0); Hemoglobin 14.4 g/dL (13.5-17.5); Lymphocytes # (auto) 0.9 10 ^3/uL (0.4-5.4); Mean Corpuscular Hemoglobin 27.8 pg (28.0-32.0); Mean Corpuscular Hgb Conc. 32.5 g/dL (32.0-36.0); Mean Corpuscular Volume 85.4 fL (80.0-100.0); Monocytes # (auto) 0.3 10 ^3/uL (0-1.3); Monocytes % (auto) 2.5 % (0.0-12.0); Neutrophils # (auto) 11.8 10 ^3/uL (1.6-8.6); Neutrophils % (auto) 90.4 % (37.0-80.0); Red Cell Distribution Width 15.7 % (11.8-14.3); White Blood Cell 13.1 10^3/uL (4.4-10.8)
[2023-05-19 07:43] LABS: Albumin 4.1 g/dL (3.2-4.8); Alkaline Phosphatase 116 U/L (46-116); Anion Gap 8 (5-15); Aspartate Aminotransferase 20 U/L (13-40); BUN/Creatinine Ratio 12.5 (10.0-20.0); Blood Urea Nitrogen 14 mg/dL (9-23); Calcium 9.4 mg/dL (8.5-10.1); Carbon Dioxide 25 mmol/L (20-30); Chloride 109 mmol/L (98-107); Glucose 158 mg/dL (74-106); Potassium 4.5 mmol/L (3.5-5.1); Sodium 142 mmol/L (136-145)
[2023-05-19 07:44] LABS: Bilirubin, Total 0.3 mg/dL (0.2-1.0); Total Protein 6.3 g/dL (5.7-8.2)
[2023-05-19 07:49] LABS: Alanine Aminotransferase 21 U/L (7-40)
[2023-05-19] MEDS: AZITHROMYCIN 250 MG TAB PO ONE (11:53)
[2023-05-19] MEDS: methylPREDNISolone SOD SUCC 40 MG/ML VL IV SCH (21:18)
[2023-05-20] VITALS (10 sets, daily range): BP systolic 122–134; BP diastolic 68–94; PULSE 71–95; RESP 18–20; TEMP 97.8–98.2; O2SAT 95–100
[2023-05-20 06:59] LABS: Hematocrit 43.9 % (41.0-53.0); Hemoglobin 14.1 g/dL (13.5-17.5); Mean Corpuscular Hemoglobin 27.2 pg (28.0-32.0); Mean Corpuscular Volume 84.9 fL (80.0-100.0); Red Blood Cells 5.17 10^6/uL (4.5-5.90); Red Cell Distribution Width 16.1 % (11.8-14.3); White Blood Cell 19.1 10^3/uL (4.4-10.8)
[2023-05-20 07:09] LABS: Basophils % (manual) 0 (0.0-2.0); Blast Cells 0; Eosinophils % (manual) 0 (0-7); Metamyelocytes % 0; Myelocytes % 0; Promyelocytes % 0; Reactive Lymphocytes 0
[2023-05-20 07:14] LABS: Chloride 111 mmol/L (98-107); Potassium 4.7 mmol/L (3.5-5.1); Sodium 141 mmol/L (136-145)
[2023-05-20 07:15] LABS: Anion Gap 6 (5-15); Carbon Dioxide 24 mmol/L (20-30)
[2023-05-20 07:16] LABS: Calcium 9.6 mg/dL (8.7-10.4)
[2023-05-20 07:20] LABS: Glucose 147 mg/dL (74-106)
[2023-05-20 07:21] LABS: Blood Urea Nitrogen 12 mg/dL (9-23)
[2023-05-20 07:46] LABS: Band Neutrophils % (manual) 3; Lymphocytes % (manual) 4 (10.0-50.0); Monocytes % (manual) 3 (0-12)
[2023-05-20 07:50] LABS: Platelet Estimate Adequate
[2023-05-20] MEDS: AZITHROMYCIN 250 MG TAB PO SCH (09:36)
[2023-05-20] MEDS ORDERED: FLUT1AER3 IN (09:54)
[2023-05-20] MEDS ORDERED: PRED20TA2 PO (09:57)
[2023-05-20] MEDS ORDERED: PRED-1055 PO (09:57)
== END 2023-05-20 17:00 | disposition home or self-care (01) | DRG 140 ==
LOC: ER 07:26 → EDBD 07:26 → OVERFLOW 10:34 → WEST WING 17:15
PROVIDERS: ADMIT Internal Medicine Pulmonary Disease; ATTEND Internal Medicine Pulmonary Disease
DX: J44.1 Chronic obstructive pulmonary disease with (acute) exacerbation (principal); J15.69 Pneumonia due to other Gram-negative bacteria; F03.90 Unspecified dementia, unspecified severity, without behavioral disturbance, psychotic disturbance, mood disturbance, and anxiety; K40.90 Unilateral inguinal hernia, without obstruction or gangrene, not specified as recurrent; R06.03 Acute respiratory distress; F17.210 Nicotine dependence, cigarettes, uncomplicated; I10 Essential (primary) hypertension; Z85.118 Personal history of other malignant neoplasm of bronchus and lung; Z86.73 Personal history of transient ischemic attack (TIA), and cerebral infarction without residual deficits; Z90.2 Acquired absence of lung [part of]; Z86.711 Personal history of pulmonary embolism; J15.9 Unspecified bacterial pneumonia; J44.0 Chronic obstructive pulmonary disease with (acute) lower respiratory infection
CPT/HCPCS: 36415; 71045; 80048; 80053; 81001; 83880; 84484; 85007; 85025; 85027; 87081; 93005; 94640; 96361; 96372; 96374; 99291; C9113; G0378

== ENCOUNTER 2023-06-21 15:36 | Emergency (ER) | payer MEDICARE, MEDICAID ==
[~2023-06-21] VITALS: Ht 165.1 cm; Wt 75.0 kg
[~2023-06-21 15:36] MED LIST changes: +FLUT1AER3 IN; -LEVO500T91 PO; +PRED20TA2 PO
[2023-06-21 17:22] LABS: Basophils # (auto) 0.1 10 ^3/uL (0-0.2); Basophils % (auto) 0.8 % (0.0-2.0); Eosinophils # (auto) 0.3 10 ^3/uL (0-0.8); Eosinophils % (auto) 2.5 % (0.0-7.0); Hematocrit 43.7 % (41.0-53.0); Lymphocytes # (auto) 1.1 10 ^3/uL (0.4-5.4); Lymphocytes % (auto) 10.7 % (10.0-50.0); Mean Corpuscular Hemoglobin 27.2 pg (28.0-32.0); Mean Corpuscular Volume 84.9 fL (80.0-100.0); Monocytes # (auto) 0.8 10 ^3/uL (0-1.3); Monocytes % (auto) 7.9 % (0.0-12.0); Neutrophils # (auto) 7.9 10 ^3/uL (1.6-8.6); Neutrophils % (auto) 78.1 % (37.0-80.0); Nucleated Red Blood Cells % 0.1 %; Red Blood Cells 5.15 10^6/uL (4.5-5.90); Red Cell Distribution Width 15.8 % (11.8-14.3); White Blood Cell 10.1 10^3/uL (4.4-10.8)
[2023-06-21 17:42] LABS: Alanine Aminotransferase 30 U/L (7-40); Alkaline Phosphatase 124 U/L (46-116); Anion Gap 5 (5-15); Aspartate Aminotransferase 23 U/L (13-40); BUN/Creatinine Ratio 9.2 (10.0-20.0); Blood Urea Nitrogen 11 mg/dL (9-23); Calcium 9.6 mg/dL (8.5-10.1); Carbon Dioxide 28 mmol/L (20-30); Chloride 111 mmol/L (98-107); Glucose 127 mg/dL (74-106); Potassium 4.4 mmol/L (3.5-5.1); Sodium 144 mmol/L (136-145)
[2023-06-21 17:43] LABS: Bilirubin, Total 0.3 mg/dL (0.2-1.0)
[2023-06-21] MEDS: IPRATROPIUM BROM 0.5 MG/2.5ML INH SOL NEB ONE (19:55)
[2023-06-21] MEDS: ALBUTEROL SULF 2.5 MG/0.5ML(0.5%) NEB SOLN NEB ONE (19:55)
[2023-06-21] MEDS ORDERED: PRED20TA2 PO (21:29)
[2023-06-21] MEDS: methylPREDNISolone SOD SUCC 125 MG/2 ML VL IV ONE (23:26)
[2023-06-21 23:29] VITALS: BP 129/73; PULSE 72; RESP 18; TEMP 97.9; O2SAT 95
== END 2023-06-21 21:32 | disposition home or self-care (01) ==
LOC: EDBD 15:36 → ER 15:36
DX: R06.02 Shortness of breath (principal); J45.909 Unspecified asthma, uncomplicated; I10 Essential (primary) hypertension
CPT/HCPCS: 36415; 71045; 80053; 83880; 84484; 85025; 93005; 94640; 96374; 99285; J2930; J7644

== ENCOUNTER 2023-06-29 15:45 | Inpatient (IN) | payer MEDICARE, MEDICAID ==
[~2023-06-29] VITALS: Ht 182.9 cm; Wt 66.4 kg
[2023-06-29] MEDS: FUROSEMIDE 40 MG/4 ML VIAL IV ONE (16:27)
[2023-06-29 16:43] LABS: Base Excess 0.6 mmol/L (-2.0-2.0)
[2023-06-29 17:00] LABS: Basophils # (auto) 0.1 10 ^3/uL (0-0.2); Basophils % (auto) 0.8 % (0.0-2.0); Eosinophils # (auto) 0.6 10 ^3/uL (0-0.8); Eosinophils % (auto) 5.5 % (0.0-7.0); Hematocrit 48.3 % (41.0-53.0); Hemoglobin 15.5 g/dL (13.5-17.5); Lymphocytes # (auto) 1.1 10 ^3/uL (0.4-5.4); Lymphocytes % (auto) 10.4 % (10.0-50.0); Mean Corpuscular Hemoglobin 27.2 pg (28.0-32.0); Monocytes # (auto) 0.8 10 ^3/uL (0-1.3); Monocytes % (auto) 7.2 % (0.0-12.0); Neutrophils # (auto) 8.2 10 ^3/uL (1.6-8.6); Neutrophils % (auto) 76.1 % (37.0-80.0); Nucleated Red Blood Cells % 0.2 %; Red Blood Cells 5.69 10^6/uL (4.5-5.90); Red Cell Distribution Width 16.1 % (11.8-14.3); White Blood Cell 10.8 10^3/uL (4.4-10.8)
[2023-06-29 17:16] LABS: INR 0.97 (0.9-1.15); Prothrombin Time 10.3 sec (9.3-11.8)
[2023-06-29 17:33] LABS: Alanine Aminotransferase 29 U/L (7-40); Albumin 4.4 g/dL (3.2-4.8); Alkaline Phosphatase 132 U/L (46-116); Anion Gap 5 (5-15); Aspartate Aminotransferase 19 U/L (13-40); BUN/Creatinine Ratio 11.2 (10.0-20.0); Blood Urea Nitrogen 12 mg/dL (9-23); Calcium 9.8 mg/dL (8.7-10.4); Carbon Dioxide 30 mmol/L (20-30); Chloride 109 mmol/L (98-107); Glucose 98 mg/dL (74-106); Lipase 44 U/L (12-53); Potassium 4.4 mmol/L (3.5-5.1); Sodium 144 mmol/L (136-145)
[2023-06-29 17:34] LABS: Bilirubin, Total 0.4 mg/dL (0.2-1.0); Total Protein 6.9 g/dL (5.7-8.2)
[2023-06-29] MEDS: ALBUTEROL SULF 2.5 MG/0.5ML(0.5%) NEB SOLN HHN ONE (19:28)
[2023-06-29] MEDS: IPRATROPIUM BROM 0.5 MG/2.5ML INH SOL HHN ONE (19:28)
[2023-06-29] MEDS ORDERED: ONDANSETRON HCL 4 MG/2 ML VIAL IV PRN (21:15)
[2023-06-29] MEDS ORDERED: ACETAMINOPHEN 325 MG TAB PO PRN (21:15)
[2023-06-29] MEDS ORDERED: NITROGLYCERIN 0.4 MG SL TAB SL PRN (21:15)
[2023-06-29] MEDS ORDERED: MORPHINE SULFATE INJ 2 MG/ml SYRG IV PRN (21:15)
[2023-06-29 21:30] VITALS: BP 142/76; PULSE 90; RESP 18; O2SAT 98
[2023-06-29 22:22] VITALS: PULSE 80; RESP 20; O2SAT 94
[2023-06-29] MEDS: levoFLOXacin 500MG 100 ML IV ONE (22:35)
[2023-06-29] MEDS: MEMANTINE HCL 5 MG TAB PO SCH (22:35)
[2023-06-29] MEDS: APIXABAN 5 MG TAB PO SCH (22:35)
[2023-06-30] VITALS (16 sets, daily range): BP systolic 108–151; BP diastolic 68–84; PULSE 81–123; RESP 11–30; TEMP 98.1–98.5; O2SAT 74–99
[2023-06-30 05:38] LABS: Basophils # (auto) 0.1 10 ^3/uL (0-0.2); Eosinophils # (auto) 0.6 10 ^3/uL (0-0.8); Eosinophils % (auto) 7.2 % (0.0-7.0); Hematocrit 42.9 % (41.0-53.0); Hemoglobin 13.9 g/dL (13.5-17.5); Lymphocytes # (auto) 1.5 10 ^3/uL (0.4-5.4); Lymphocytes % (auto) 17.4 % (10.0-50.0); Mean Corpuscular Hemoglobin 27.2 pg (28.0-32.0); Mean Corpuscular Hgb Conc. 32.3 g/dL (32.0-36.0); Monocytes # (auto) 0.9 10 ^3/uL (0-1.3); Monocytes % (auto) 10.6 % (0.0-12.0); Neutrophils # (auto) 5.5 10 ^3/uL (1.6-8.6); Neutrophils % (auto) 63.8 % (37.0-80.0); Nucleated Red Blood Cells % 0.1 %; Red Cell Distribution Width 15.7 % (11.8-14.3); White Blood Cell 8.6 10^3/uL (4.4-10.8)
[2023-06-30 05:59] LABS: Alanine Aminotransferase 21 U/L (7-40); Albumin 3.7 g/dL (3.2-4.8); Alkaline Phosphatase 108 U/L (46-116); Anion Gap 6 (5-15); Aspartate Aminotransferase 16 U/L (13-40); BUN/Creatinine Ratio 10.7 (10.0-20.0); Blood Urea Nitrogen 12 mg/dL (9-23); Calcium 9.1 mg/dL (8.7-10.4); Carbon Dioxide 28 mmol/L (20-30); Chloride 109 mmol/L (98-107); Glucose 91 mg/dL (74-106); Potassium 3.8 mmol/L (3.5-5.1); Sodium 143 mmol/L (136-145)
[2023-06-30 06:00] LABS: Bilirubin, Total 0.4 mg/dL (0.2-1.0)
[2023-06-30] MEDS: IPRATROPIUM BROM 0.5 MG/2.5ML INH SOL NEB PRN (06:41)
[2023-06-30] MEDS: ALBUTEROL SULF 2.5 MG/0.5ML(0.5%) NEB SOLN NEB PRN (06:42)
[2023-06-30] MEDS: cefTRIAXone 1GM/50ML D5W 50 ML IV SCH (09:25)
[2023-06-30] MEDS: ALBUTEROL SULF 2.5 MG/0.5ML(0.5%) NEB SOLN ONE (09:41)
[2023-06-30] MEDS: IPRATROPIUM BROM 0.5 MG/2.5ML INH SOL ONE (09:42)
[2023-06-30] MEDS ORDERED: LORazepam 2MG/ML-1ML VIAL IV PRN (09:45)
[2023-06-30] MEDS: ALBUTEROL SULF 2.5 MG/0.5ML(0.5%) NEB SOLN NEB ONE ×2 (10:01→10:30)
[2023-06-30] MEDS: IPRATROPIUM BROM 0.5 MG/2.5ML INH SOL NEB ONE ×2 (10:01→10:30)
[2023-06-30] MEDS: methylPREDNISolone SOD SUCC 125 MG/2 ML VL IV ONE (10:07)
[2023-06-30] MEDS: AZITHROMYCIN 500MG/ 250ML 250 ML IV SCH (10:43)
[2023-06-30] MEDS: amLODIPine BESYLATE 5 MG TAB PO SCH (10:44)
[2023-06-30] MEDS: FUROSEMIDE 40 MG TAB PO SCH (10:44)
[2023-06-30] MEDS: methylPREDNISolone SOD SUCC 125 MG/2 ML VL IV SCH (15:18)
[2023-06-30] MEDS ORDERED: MORPHINE SULFATE 4 MG/ML SYR/VIAL IV PRN (22:15)
[2023-07-01] VITALS (12 sets, daily range): BP systolic 109–135; BP diastolic 60–80; PULSE 45–93; RESP 16–20; TEMP 98–98.5; O2SAT 91–98
[2023-07-01 09:25] LABS: Hepatitis B Surface Antigen Negative (Negative)
[2023-07-01 09:46] LABS: Hepatitis C Antibody Negative (Negative)
[2023-07-01] MEDS: NICOTINE 14 MG/24HR TOPICAL PATCH TD ONE (18:02)
[2023-07-02] VITALS (9 sets, daily range): BP systolic 104–120; BP diastolic 60–71; PULSE 42–88; RESP 17–20; TEMP 97.7–98.3; O2SAT 93–98
[2023-07-02] MEDS: NICOTINE 14 MG/24HR TOPICAL PATCH TD SCH (10:12)
[2023-07-03] VITALS (8 sets, daily range): BP systolic 102–136; BP diastolic 63–76; PULSE 55–82; RESP 16–19; TEMP 36.4; O2SAT 93–99
[2023-07-03] MEDS ORDERED: AZIT500T66 PO (10:58)
[2023-07-03] MEDS ORDERED: PRED20TA2 PO (10:58)
== END 2023-07-03 16:00 | disposition home or self-care (01) | DRG 140 ==
LOC: ER 15:45 → EDBD 15:45 → TELE 21:25 → TELE-E-ADS 06-30 13:00 → TELE-WESTW 06-30 19:05
PROVIDERS: ADMIT Nurse Practitioner; ATTEND Family Medicine
DX: J44.1 Chronic obstructive pulmonary disease with (acute) exacerbation (principal); J96.21 Acute and chronic respiratory failure with hypoxia; J15.69 Pneumonia due to other Gram-negative bacteria; J45.901 Unspecified asthma with (acute) exacerbation; J15.9 Unspecified bacterial pneumonia; J90 Pleural effusion, not elsewhere classified; J44.0 Chronic obstructive pulmonary disease with (acute) lower respiratory infection; K40.90 Unilateral inguinal hernia, without obstruction or gangrene, not specified as recurrent; I10 Essential (primary) hypertension; F17.210 Nicotine dependence, cigarettes, uncomplicated; Z86.73 Personal history of transient ischemic attack (TIA), and cerebral infarction without residual deficits; I25.2 Old myocardial infarction; Z86.711 Personal history of pulmonary embolism; Z85.118 Personal history of other malignant neoplasm of bronchus and lung; Z82.0 Family history of epilepsy and other diseases of the nervous system; Z80.42 Family history of malignant neoplasm of prostate; Z82.49 Family history of ischemic heart disease and other diseases of the circulatory system
CPT/HCPCS: 36415; 36600; 71045; 74176; 80053; 82805; 83690; 83880; 84484; 85025; 85379; 85610; 86803; 87340; 93005; 93970; 94640; G0378; J1956

== ENCOUNTER 2023-08-31 16:26 | Inpatient (IN) | payer MEDICARE, MEDICAID ==
[~2023-08-31] VITALS: Ht 165.1 cm; Wt 66.9 kg
[~2023-08-31 16:26] MED LIST changes: +AZIT500T66 PO
[2023-08-31] MEDS: IPRATROPIUM BROM 0.5 MG/2.5ML INH SOL NEB ONE (16:45)
[2023-08-31] MEDS: ALBUTEROL SULF 2.5 MG/0.5ML(0.5%) NEB SOLN NEB ONE (16:45)
[2023-08-31 17:53] LABS: Basophils # (auto) 0.1 10 ^3/uL (0-0.2); Basophils % (auto) 0.9 % (0.0-2.0); Eosinophils # (auto) 0.6 10 ^3/uL (0-0.8); Eosinophils % (auto) 5.3 % (0.0-7.0); Hemoglobin 14.6 g/dL (13.5-17.5); Lymphocytes # (auto) 1.3 10 ^3/uL (0.4-5.4); Lymphocytes % (auto) 11.7 % (10.0-50.0); Mean Corpuscular Hemoglobin 27.5 pg (28.0-32.0); Mean Corpuscular Hgb Conc. 32.5 g/dL (32.0-36.0); Mean Corpuscular Volume 84.6 fL (80.0-100.0); Monocytes # (auto) 0.8 10 ^3/uL (0-1.3); Monocytes % (auto) 7.4 % (0.0-12.0); Neutrophils # (auto) 8.2 10 ^3/uL (1.6-8.6); Neutrophils % (auto) 74.7 % (37.0-80.0); Red Blood Cells 5.32 10^6/uL (4.5-5.90); Red Cell Distribution Width 17.4 % (11.8-14.3); White Blood Cell 10.9 10^3/uL (4.4-10.8)
[2023-08-31 17:58] LABS: Chloride 111 mmol/L (98-107); Potassium 4.4 mmol/L (3.5-5.1); Sodium 142 mmol/L (136-145)
[2023-08-31 17:59] LABS: Anion Gap 5 (5-15); Calcium 9.8 mg/dL (8.7-10.4); Carbon Dioxide 26 mmol/L (20-30)
[2023-08-31 18:04] LABS: BUN/Creatinine Ratio 6.3 (10.0-20.0); Blood Urea Nitrogen 7 mg/dL (9-23); Glucose 111 mg/dL (74-106)
[2023-08-31] MEDS: MAGNESIUM SULFATE 1GM/100ML 100 ML IV ONE (18:22)
[2023-08-31] MEDS: methylPREDNISolone SOD SUCC 125 MG/2 ML VL IV ONE (18:24)
[2023-08-31] MEDS ORDERED: MORPHINE SULFATE INJ 2 MG/ml SYRG IV PRN (19:00)
[2023-08-31] MEDS ORDERED: NITROGLYCERIN 0.4 MG SL TAB SL PRN (19:00)
[2023-08-31] MEDS ORDERED: ALBUTEROL SULF 2.5 MG/0.5ML(0.5%) NEB SOLN NEB PRN (19:00)
[2023-08-31 19:30] VITALS: PULSE 70; RESP 16; O2SAT 99
[2023-08-31] MEDS: SODIUM CHLORIDE 0.9% 1,000 ML IV SCH (20:53)
[2023-08-31 21:50] VITALS: PULSE 84; RESP 18; O2SAT 98
[2023-08-31 22:00] VITALS: PULSE 88; RESP 18; O2SAT 99
[2023-08-31] MEDS: ALBUTEROL SULF 2.5 MG/0.5ML(0.5%) NEB SOLN NEB SCH (22:02)
[2023-08-31] MEDS: IPRATROPIUM BROM 0.5 MG/2.5ML INH SOL NEB SCH (22:03)
[2023-08-31] MEDS: APIXABAN 5 MG TAB PO SCH (22:19)
[2023-08-31] MEDS: MEMANTINE HCL 5 MG TAB PO SCH (22:19)
[2023-08-31] MEDS: methylPREDNISolone SOD SUCC 40 MG/ML VL IV SCH (22:19)
[2023-08-31 22:55] LABS: Urine Bacteria None Seen /hpf (None Seen)
[2023-08-31 22:59] VITALS: BP 143/79; PULSE 70; RESP 16; O2SAT 97
[2023-08-31 23:02] LABS: Urine Blood Negative /uL (Negative); Urine Clarity Clear (Clear); Urine Color Light-Yellow (Yellow); Urine Protein, UAD Negative (Negative); Urine Specific Gravity 1.014 (1.001-1.035); Urine Urobilinogen Normal (Negative); Urine WBC <1 /hpf (0 - 3); Urine pH 6.5 (5.0-9.0)
[2023-09-01] VITALS (17 sets, daily range): BP systolic 119–137; BP diastolic 65–78; PULSE 79–110; RESP 14–20; TEMP 97.6–98.3; O2SAT 94–100
[2023-09-01 06:25] LABS: Basophils # (auto) 0 10 ^3/uL (0-0.2); Basophils % (auto) 0.3 % (0.0-2.0); Eosinophils # (auto) 0 10 ^3/uL (0-0.8); Eosinophils % (auto) 0.1 % (0.0-7.0); Hematocrit 43.3 % (41.0-53.0); Hemoglobin 14.3 g/dL (13.5-17.5); Lymphocytes # (auto) 0.7 10 ^3/uL (0.4-5.4); Lymphocytes % (auto) 7.2 % (10.0-50.0); Mean Corpuscular Hemoglobin 27.8 pg (28.0-32.0); Mean Corpuscular Hgb Conc. 33.1 g/dL (32.0-36.0); Mean Corpuscular Volume 84.1 fL (80.0-100.0); Monocytes # (auto) 0.1 10 ^3/uL (0-1.3); Monocytes % (auto) 0.7 % (0.0-12.0); Neutrophils # (auto) 8.5 10 ^3/uL (1.6-8.6); Neutrophils % (auto) 91.7 % (37.0-80.0); Red Blood Cells 5.14 10^6/uL (4.5-5.90); Red Cell Distribution Width 16.8 % (11.8-14.3); White Blood Cell 9.3 10^3/uL (4.4-10.8)
[2023-09-01 06:39] LABS: Alanine Aminotransferase 16 U/L (7-40); Albumin 3.9 g/dL (3.2-4.8); Alkaline Phosphatase 109 U/L (46-116); Anion Gap 8 (5-15); Aspartate Aminotransferase 12 U/L (13-40); Bilirubin, Total 0.4 mg/dL (0.2-1.0); Blood Urea Nitrogen 7 mg/dL (9-23); Calcium 9.3 mg/dL (8.7-10.4); Carbon Dioxide 22 mmol/L (20-30); Chloride 111 mmol/L (98-107); Glucose 171 mg/dL (74-106); Potassium 4.8 mmol/L (3.5-5.1); Sodium 141 mmol/L (136-145); Total Protein 5.9 g/dL (5.7-8.2)
[2023-09-01] MEDS ORDERED: ENOXAPARIN SOD 40 MG/0.4 ML SYRINGE SC SCH (10:00)
[2023-09-01] MEDS: amLODIPine BESYLATE 5 MG TAB PO SCH (11:35)
[2023-09-01] MEDS: NICOTINE 21MG/24 HR TOPICAL PATCH TD SCH (11:37)
[2023-09-01] MEDS ORDERED: NICOTINE 21MG/24 HR TOPICAL PATCH TD ONE (16:00)
[2023-09-01] MEDS: AZITHROMYCIN 500MG/ 250ML 250 ML IV ONE (17:29)
[2023-09-02] VITALS (16 sets, daily range): BP systolic 115–120; BP diastolic 64–75; PULSE 80–104; RESP 15–22; TEMP 97.8–98.7; O2SAT 94–100
[2023-09-02] MEDS: ACETAMINOPHEN 325 MG TAB PO PRN (02:50)
[2023-09-02 06:27] LABS: Basophils # (auto) 0 10 ^3/uL (0-0.2); Basophils % (auto) 0.1 % (0.0-2.0); Eosinophils # (auto) 0 10 ^3/uL (0-0.8); Hematocrit 42.1 % (41.0-53.0); Lymphocytes # (auto) 0.7 10 ^3/uL (0.4-5.4); Lymphocytes % (auto) 4.5 % (10.0-50.0); Mean Corpuscular Hemoglobin 27.9 pg (28.0-32.0); Mean Corpuscular Hgb Conc. 33.3 g/dL (32.0-36.0); Mean Corpuscular Volume 83.9 fL (80.0-100.0); Monocytes # (auto) 0.5 10 ^3/uL (0-1.3); Monocytes % (auto) 3.5 % (0.0-12.0); Neutrophils # (auto) 13.6 10 ^3/uL (1.6-8.6); Neutrophils % (auto) 91.9 % (37.0-80.0); Red Blood Cells 5.01 10^6/uL (4.5-5.90); Red Cell Distribution Width 16.7 % (11.8-14.3); White Blood Cell 14.8 10^3/uL (4.4-10.8)
[2023-09-02 06:32] LABS: Alanine Aminotransferase 16 U/L (7-40); Albumin 3.8 g/dL (3.2-4.8); Alkaline Phosphatase 97 U/L (46-116); Anion Gap 9 (5-15); Aspartate Aminotransferase 11 U/L (13-40); BUN/Creatinine Ratio 8.9 (10.0-20.0); Bilirubin, Total 0.3 mg/dL (0.2-1.0); Blood Urea Nitrogen 9 mg/dL (9-23); Calcium 9.5 mg/dL (8.7-10.4); Carbon Dioxide 23 mmol/L (20-30); Chloride 110 mmol/L (98-107); Glucose 181 mg/dL (74-106); Potassium 4.4 mmol/L (3.5-5.1); Sodium 142 mmol/L (136-145); Total Protein 5.9 g/dL (5.7-8.2)
[2023-09-02] MEDS: AZITHROMYCIN 500MG/ 250ML 250 ML IV SCH (08:48)
[2023-09-02] MEDS: NICOTINE 21MG/24 HR TOPICAL PATCH TD SCH (08:50)
[2023-09-02] MEDS ORDERED: PRED20TA2 PO (10:07)
[2023-09-02] MEDS ORDERED: AZIT500T66 PO (10:07)
[2023-09-02] MEDS ORDERED: FLUT1AER3 IN (13:36)
== END 2023-09-02 20:49 | disposition home or self-care (01) | DRG 140 ==
LOC: EDBD 16:26 → ER 16:26 → TELE 18:58 → TELE-E-ADS 09-01 09:32
PROVIDERS: ADMIT Internal Medicine Pulmonary Disease; ATTEND Internal Medicine Pulmonary Disease
DX: J44.1 Chronic obstructive pulmonary disease with (acute) exacerbation (principal); J96.01 Acute respiratory failure with hypoxia; I10 Essential (primary) hypertension; I25.2 Old myocardial infarction; Z86.73 Personal history of transient ischemic attack (TIA), and cerebral infarction without residual deficits; Z87.891 Personal history of nicotine dependence; Z86.711 Personal history of pulmonary embolism; Z85.118 Personal history of other malignant neoplasm of bronchus and lung
CPT/HCPCS: 36415; 71045; 80048; 80053; 81001; 83880; 85025; 85379; 94640; 99291; G0378

== ENCOUNTER 2023-09-10 06:19 | Emergency (ER) | payer MEDICARE, MEDICAID ==
[~2023-09-10] VITALS: Ht 167.6 cm; Wt 70.0 kg
[~2023-09-10 06:19] MED LIST changes: -TIOTCAP IN
[2023-09-10 06:42] VITALS: PULSE 97; RESP 20; O2SAT 95
[2023-09-10 07:21] VITALS: TEMP 98
[2023-09-10 08:20] VITALS: RESP 20; O2SAT 93
[2023-09-10] MEDS: SODIUM CHLORIDE 0.9% 1,000 ML IV ONE (08:36)
[2023-09-10 08:48] LABS: Basophils # (auto) 0.1 10 ^3/uL (0-0.2); Basophils % (auto) 0.7 % (0.0-2.0); Eosinophils # (auto) 0.6 10 ^3/uL (0-0.8); Eosinophils % (auto) 6.8 % (0.0-7.0); Hematocrit 44.2 % (41.0-53.0); Hemoglobin 14.6 g/dL (13.5-17.5); Lymphocytes % (auto) 10.9 % (10.0-50.0); Mean Corpuscular Hemoglobin 27.8 pg (28.0-32.0); Mean Corpuscular Hgb Conc. 33.1 g/dL (32.0-36.0); Monocytes # (auto) 0.6 10 ^3/uL (0-1.3); Monocytes % (auto) 6.4 % (0.0-12.0); Neutrophils # (auto) 7.1 10 ^3/uL (1.6-8.6); Neutrophils % (auto) 75.2 % (37.0-80.0); Nucleated Red Blood Cells % 0.1 %; Red Blood Cells 5.26 10^6/uL (4.5-5.90); Red Cell Distribution Width 17.3 % (11.8-14.3); White Blood Cell 9.4 10^3/uL (4.4-10.8)
[2023-09-10 09:09] LABS: INR 1.02 (0.9-1.15); Partial Thromboplastin Time 26.6 SEC (24.5-34.5); Prothrombin Time 10.8 sec (9.3-11.8)
[2023-09-10 09:11] LABS: Alanine Aminotransferase 23 U/L (7-40); Alkaline Phosphatase 102 U/L (46-116); Anion Gap 6 (5-15); Aspartate Aminotransferase 12 U/L (13-40); Bilirubin, Total 0.5 mg/dL (0.2-1.0); Blood Urea Nitrogen 8 mg/dL (9-23); Calcium 9.6 mg/dL (8.7-10.4); Carbon Dioxide 27 mmol/L (20-30); Chloride 112 mmol/L (98-107); Glucose 83 mg/dL (74-106); Magnesium 1.9 mg/dL (1.6-2.6); Potassium 4.1 mmol/L (3.5-5.1); Sodium 145 mmol/L (136-145); Total Protein 6.1 g/dL (5.7-8.2)
[2023-09-10] MEDS: FUROSEMIDE 20 MG/2 ML VIAL IV ONE (11:32)
[2023-09-10] MEDS: AZITHROMYCIN 500MG/ 250ML 250 ML IV ONE (11:32)
[2023-09-10] MEDS: SPIRONOLACTONE 25 MG TAB PO ONE (11:32)
[2023-09-10] MEDS: IPRATROPIUM BROM 0.5 MG/2.5ML INH SOL NEB ONE (11:53)
[2023-09-10] MEDS: ALBUTEROL SULF 2.5 MG/0.5ML(0.5%) NEB SOLN NEB ONE (11:53)
[2023-09-10 13:11] VITALS: BP 114/66; PULSE 69
[2023-09-10] MEDS ORDERED: ALBUAER3 IN (13:28)
[2023-09-10] MEDS ORDERED: AZIT500T PO (13:28)
[2023-09-10 14:14] VITALS: RESP 20; O2SAT 94
== END 2023-09-10 14:19 | disposition home or self-care (01) ==
LOC: EDBD 06:19 → ER 06:19
DX: J44.9 Chronic obstructive pulmonary disease, unspecified (principal); I10 Essential (primary) hypertension; F17.210 Nicotine dependence, cigarettes, uncomplicated; J20.9 Acute bronchitis, unspecified; J44.0 Chronic obstructive pulmonary disease with (acute) lower respiratory infection; J90 Pleural effusion, not elsewhere classified; Z86.73 Personal history of transient ischemic attack (TIA), and cerebral infarction without residual deficits
CPT/HCPCS: 36415; 71046; 80053; 83735; 84443; 84484; 85025; 85379; 85610; 85730; 93005; 94640; 96361; 96365; 96366; 96375; 99285; J0456; J1940; J7030; J7644

== ENCOUNTER 2023-09-14 16:03 | Inpatient (IN) | payer MEDICARE, MEDICAID ==
[~2023-09-14] VITALS: Ht 175.3 cm; Wt 65.2 kg
[~2023-09-14 16:03] MED LIST changes: +ALBUAER3 IN; +AZIT500T PO
[2023-09-14] MEDS: ALBUTEROL SULF 2.5 MG/0.5ML(0.5%) NEB SOLN NEB ONE (16:24)
[2023-09-14 16:34] VITALS: RESP 16; O2SAT 98
[2023-09-14] MEDS: methylPREDNISolone SOD SUCC 125 MG/2 ML VL IV ONE (16:36)
[2023-09-14] MEDS: cefTRIAXone 1GM/50ML D5W 50 ML IV ONE (16:36)
[2023-09-14 16:44] VITALS: PULSE 97; RESP 16; O2SAT 97
[2023-09-14 16:44] LABS: Basophils # (auto) 0.1 10 ^3/uL (0-0.2); Eosinophils # (auto) 0.7 10 ^3/uL (0-0.8); Eosinophils % (auto) 7.1 % (0.0-7.0); Hematocrit 44.8 % (41.0-53.0); Hemoglobin 14.6 g/dL (13.5-17.5); Lymphocytes # (auto) 1.7 10 ^3/uL (0.4-5.4); Mean Corpuscular Hemoglobin 27.4 pg (28.0-32.0); Mean Corpuscular Hgb Conc. 32.7 g/dL (32.0-36.0); Mean Corpuscular Volume 83.7 fL (80.0-100.0); Monocytes # (auto) 0.8 10 ^3/uL (0-1.3); Neutrophils # (auto) 7.1 10 ^3/uL (1.6-8.6); Neutrophils % (auto) 67.9 % (37.0-80.0); Red Blood Cells 5.35 10^6/uL (4.5-5.90); Red Cell Distribution Width 17.6 % (11.8-14.3); White Blood Cell 10.4 10^3/uL (4.4-10.8)
[2023-09-14 16:52] LABS: Chloride 113 mmol/L (98-107); Potassium 4.5 mmol/L (3.5-5.1); Sodium 146 mmol/L (136-145)
[2023-09-14 16:53] LABS: Anion Gap 6 (5-15); Carbon Dioxide 27 mmol/L (20-30)
[2023-09-14 16:54] LABS: Calcium 9.7 mg/dL (8.7-10.4)
[2023-09-14 16:58] LABS: BUN/Creatinine Ratio 9.4 (10.0-20.0); Blood Urea Nitrogen 10 mg/dL (9-23); Glucose 95 mg/dL (74-106)
[2023-09-14] MEDS ORDERED: ONDANSETRON HCL 4 MG/2 ML VIAL IV PRN (18:15)
[2023-09-14] MEDS ORDERED: ACETAMINOPHEN 325 MG TAB PO PRN (18:15)
[2023-09-14] MEDS ORDERED: DOCUSATE SOD 100 MG CAP PO PRN (18:15)
[2023-09-14] MEDS ORDERED: HYDROcodone-ACET 5/325MG TAB PO PRN (18:15)
[2023-09-14 18:56] VITALS: O2SAT 95
[2023-09-14 19:45] VITALS: PULSE 85; RESP 14; O2SAT 95
[2023-09-14] MEDS ORDERED: MORPHINE SULFATE INJ 2 MG/ml SYRG IV PRN (21:15)
[2023-09-14] MEDS ORDERED: NITROGLYCERIN 0.4 MG SL TAB SL PRN (21:15)
[2023-09-14] MEDS: SODIUM CHLOR 0.9% PF (SALINE LOCK) 10ML VIAL/SYR IV SCH (22:00)
[2023-09-14] MEDS: methylPREDNISolone SOD SUCC 40 MG/ML VL IV SCH (22:00)
[2023-09-14] MEDS: APIXABAN 5 MG TAB PO SCH (22:00)
[2023-09-14] MEDS: FAMOTIDINE (10MG/ML) 2ML VL IV SCH (22:00)
[2023-09-14 22:33] LABS: Urine Bacteria None Seen /hpf (None Seen)
[2023-09-14 22:43] LABS: Urine Blood Negative /uL (Negative); Urine Clarity Clear (Clear); Urine Color Light-Yellow (Yellow); Urine Protein, UAD Negative (Negative); Urine Specific Gravity 1.011 (1.001-1.035); Urine Urobilinogen Normal (Negative); Urine WBC <1 /hpf (0 - 3)
[2023-09-14 23:10] VITALS: BP 129/86; PULSE 85; RESP 14; TEMP 97.8; O2SAT 95
[2023-09-15] VITALS (19 sets, daily range): BP systolic 124–140; BP diastolic 66–79; PULSE 66–95; RESP 16–97; TEMP 97.5–98.8; O2SAT 95–100
[2023-09-15] MEDS: IPRATROPIUM BROM 0.5 MG/2.5ML INH SOL NEB PRN (01:43)
[2023-09-15] MEDS: ALBUTEROL SULF 2.5 MG/0.5ML(0.5%) NEB SOLN NEB PRN (01:43)
[2023-09-15 06:01] LABS: Hemoglobin 14.1 g/dL (13.5-17.5); Mean Corpuscular Hemoglobin 27.6 pg (28.0-32.0); Mean Corpuscular Hgb Conc. 32.7 g/dL (32.0-36.0); Mean Corpuscular Volume 84.3 fL (80.0-100.0); Red Cell Distribution Width 17.5 % (11.8-14.3); White Blood Cell 12.6 10^3/uL (4.4-10.8)
[2023-09-15 06:18] LABS: Alanine Aminotransferase 19 U/L (7-40); Alkaline Phosphatase 92 U/L (46-116); Anion Gap 9 (5-15); Aspartate Aminotransferase 11 U/L (13-40); BUN/Creatinine Ratio 9.2 (10.0-20.0); Blood Urea Nitrogen 10 mg/dL (9-23); Calcium 9.4 mg/dL (8.7-10.4); Carbon Dioxide 24 mmol/L (20-30); Chloride 110 mmol/L (98-107); Glucose 162 mg/dL (74-106); Potassium 4.5 mmol/L (3.5-5.1); Sodium 143 mmol/L (136-145)
[2023-09-15 06:19] LABS: Bilirubin, Total 0.4 mg/dL (0.2-1.0)
[2023-09-15 06:28] LABS: Basophils % (manual) 0 (0.0-2.0); Blast Cells 0; Eosinophils % (manual) 0 (0-7); Metamyelocytes % 0; Monocytes % (manual) 0 (0-12); Myelocytes % 0; Promyelocytes % 0; Reactive Lymphocytes 0
[2023-09-15 07:42] LABS: Band Neutrophils % (manual) 1; Lymphocytes % (manual) 3 (10.0-50.0); Platelet Estimate Adequate
[2023-09-15] MEDS: methylPREDNISolone SOD SUCC 40 MG/ML VL IV ONE (14:00)
[2023-09-15] MEDS: AZITHROMYCIN 250 MG TAB PO ONE (15:06)
[2023-09-15 16:57] LABS: COVID19 ANTIGEN SOFIA FIA NEGATIVE (NEGATIVE); Rapid Influenza A Negative (Negative); Rapid Influenza B Negative (Negative)
[2023-09-15] MEDS: ALBUTEROL SULF 2.5 MG/0.5ML(0.5%) NEB SOLN NEB SCH (19:02)
[2023-09-15] MEDS: IPRATROPIUM BROM 0.5 MG/2.5ML INH SOL NEB SCH (19:03)
[2023-09-15] MEDS: methylPREDNISolone SOD SUCC 40 MG/ML VL IV SCH (22:16)
[2023-09-16] VITALS (18 sets, daily range): BP systolic 115–134; BP diastolic 62–71; PULSE 68–89; RESP 16–20; TEMP 97.9–98.3; O2SAT 93–100
[2023-09-16 07:05] LABS: Basophils # (auto) 0 10 ^3/uL (0-0.2); Basophils % (auto) 0.1 % (0.0-2.0); Eosinophils # (auto) 0 10 ^3/uL (0-0.8); Hematocrit 44.4 % (41.0-53.0); Hemoglobin 14.3 g/dL (13.5-17.5); Lymphocytes # (auto) 0.6 10 ^3/uL (0.4-5.4); Mean Corpuscular Hemoglobin 27.3 pg (28.0-32.0); Mean Corpuscular Hgb Conc. 32.2 g/dL (32.0-36.0); Mean Corpuscular Volume 84.9 fL (80.0-100.0); Monocytes # (auto) 0.4 10 ^3/uL (0-1.3); Neutrophils # (auto) 19.1 10 ^3/uL (1.6-8.6); Neutrophils % (auto) 94.9 % (37.0-80.0); Red Blood Cells 5.23 10^6/uL (4.5-5.90); Red Cell Distribution Width 17.3 % (11.8-14.3); White Blood Cell 20.2 10^3/uL (4.4-10.8)
[2023-09-16 07:19] LABS: Alanine Aminotransferase 18 U/L (7-40); Albumin 3.9 g/dL (3.2-4.8); Alkaline Phosphatase 96 U/L (46-116); Anion Gap 9 (5-15); Aspartate Aminotransferase 12 U/L (13-40); BUN/Creatinine Ratio 8.8 (10.0-20.0); Bilirubin, Total 0.4 mg/dL (0.2-1.0); Blood Urea Nitrogen 9 mg/dL (9-23); Calcium 9.6 mg/dL (8.7-10.4); Carbon Dioxide 22 mmol/L (20-30); Chloride 110 mmol/L (98-107); Glucose 138 mg/dL (74-106); Potassium 4.7 mmol/L (3.5-5.1); Sodium 141 mmol/L (136-145)
[2023-09-16] MEDS: AZITHROMYCIN 250 MG TAB PO SCH (09:54)
[2023-09-17] VITALS (11 sets, daily range): BP systolic 122–140; BP diastolic 64–85; PULSE 60–87; RESP 18–20; TEMP 97.8–98.9; O2SAT 92–100
[2023-09-17 06:11] LABS: Basophils # (auto) 0 10 ^3/uL (0-0.2); Basophils % (auto) 0.2 % (0.0-2.0); Eosinophils # (auto) 0 10 ^3/uL (0-0.8); Eosinophils % (auto) 0.1 % (0.0-7.0); Hematocrit 44.5 % (41.0-53.0); Hemoglobin 14.6 g/dL (13.5-17.5); Lymphocytes # (auto) 1.2 10 ^3/uL (0.4-5.4); Mean Corpuscular Hemoglobin 27.7 pg (28.0-32.0); Mean Corpuscular Hgb Conc. 32.9 g/dL (32.0-36.0); Mean Corpuscular Volume 84.4 fL (80.0-100.0); Monocytes # (auto) 1.1 10 ^3/uL (0-1.3); Monocytes % (auto) 5.5 % (0.0-12.0); Neutrophils % (auto) 88.2 % (37.0-80.0); Red Blood Cells 5.27 10^6/uL (4.5-5.90); Red Cell Distribution Width 17.3 % (11.8-14.3); White Blood Cell 19.3 10^3/uL (4.4-10.8)
[2023-09-17 06:22] LABS: Alanine Aminotransferase 18 U/L (7-40); Alkaline Phosphatase 91 U/L (46-116); Anion Gap 6 (5-15); BUN/Creatinine Ratio 13.5 (10.0-20.0); Blood Urea Nitrogen 13 mg/dL (9-23); Calcium 9.5 mg/dL (8.7-10.4); Carbon Dioxide 25 mmol/L (20-30); Chloride 111 mmol/L (98-107); Glucose 88 mg/dL (74-106); Potassium 4.1 mmol/L (3.5-5.1); Sodium 142 mmol/L (136-145)
[2023-09-17 06:23] LABS: Albumin 3.8 g/dL (3.2-4.8); Aspartate Aminotransferase 11 U/L (13-40)
[2023-09-17 06:24] LABS: Bilirubin, Total 0.5 mg/dL (0.2-1.0)
[2023-09-17] MEDS: methylPREDNISolone SOD SUCC 40 MG/ML VL IV SCH (09:29)
[2023-09-17] MEDS ORDERED: PRED20TA2 PO (17:40)
== END 2023-09-17 16:45 | disposition home or self-care (01) | DRG 140 ==
LOC: EDBD 16:03 → ER 16:03 → TELE 21:16 → TELE-WESTW 09-15 01:14
PROVIDERS: ADMIT Internal Medicine Pulmonary Disease; ATTEND Internal Medicine Pulmonary Disease
DX: J44.1 Chronic obstructive pulmonary disease with (acute) exacerbation (principal); J96.20 Acute and chronic respiratory failure, unspecified whether with hypoxia or hypercapnia; I50.9 Heart failure, unspecified; I11.0 Hypertensive heart disease with heart failure; J45.901 Unspecified asthma with (acute) exacerbation; J98.11 Atelectasis; J90 Pleural effusion, not elsewhere classified; Z20.822 Contact with and (suspected) exposure to COVID-19; F17.210 Nicotine dependence, cigarettes, uncomplicated; Z86.73 Personal history of transient ischemic attack (TIA), and cerebral infarction without residual deficits; Z80.9 Family history of malignant neoplasm, unspecified; I25.2 Old myocardial infarction; Z86.711 Personal history of pulmonary embolism; Z85.118 Personal history of other malignant neoplasm of bronchus and lung
CPT/HCPCS: 36415; 71045; 76604; 80048; 80053; 81001; 83880; 85007; 85025; 85027; 87081; 87426; 87804; 94640; 96365; 96375; 99291; G0378; J3490

== ENCOUNTER 2023-11-19 11:03 | Inpatient (IN) | payer MEDICARE, MEDICAID ==
[2023-11-19] VITALS (7 sets, daily range): BP systolic 130–133; BP diastolic 76–77; PULSE 66–90; RESP 18; TEMP 98–98.4; O2SAT 92–99
[~2023-11-19] VITALS: Ht 165.1 cm; Wt 62.4 kg
[~2023-11-19 11:03] MED LIST changes: -AZIT500T PO; -AZIT500T66 PO
[2023-11-19 12:29] LABS: Chloride 113 mmol/L (98-107); Potassium 4.2 mmol/L (3.5-5.1); Sodium 146 mmol/L (136-145)
[2023-11-19 12:30] LABS: Anion Gap 9 (5-15); Basophils # (auto) 0 10 ^3/uL (0-0.2); Basophils % (auto) 0.3 % (0.0-2.0); Calcium 9.7 mg/dL (8.7-10.4); Carbon Dioxide 24 mmol/L (20-31); Eosinophils # (auto) 0.4 10 ^3/uL (0-0.8); Eosinophils % (auto) 2.7 % (0.0-7.0); Hematocrit 46.7 % (41.0-53.0); Hemoglobin 15.3 g/dL (13.5-17.5); Lymphocytes # (auto) 1.1 10 ^3/uL (0.4-5.4); Lymphocytes % (auto) 7.2 % (10.0-50.0); Mean Corpuscular Hgb Conc. 32.8 g/dL (32.0-36.0); Mean Corpuscular Volume 85.5 fL (80.0-100.0); Monocytes # (auto) 0.7 10 ^3/uL (0-1.3); Monocytes % (auto) 4.6 % (0.0-12.0); Neutrophils # (auto) 12.6 10 ^3/uL (1.6-8.6); Neutrophils % (auto) 85.2 % (37.0-80.0); Platelet Count (auto) 261 10^3/uL (140-450); Red Blood Cells 5.46 10^6/uL (4.5-5.90); Red Cell Distribution Width 16.2 % (11.8-14.3); White Blood Cell 14.8 10^3/uL (4.4-10.8)
[2023-11-19 12:35] LABS: BUN/Creatinine Ratio 11.8 (10.0-20.0); Blood Urea Nitrogen 13 mg/dL (9-23); Glucose 84 mg/dL (74-106)
[2023-11-19] MEDS: amLODIPine BESYLATE 5 MG TAB PO SCH (15:26)
[2023-11-19] MEDS: predniSONE 20 MG TAB PO SCH (15:27)
[2023-11-19] MEDS: IBUPROFEN 400 MG TAB PO ONE (15:28)
[2023-11-19] MEDS: ACETAMINOPHEN 325 MG TAB PO SCH (15:29)
[2023-11-19] MEDS ORDERED: IPRATROPIUM BROM 0.5 MG/2.5ML INH SOL NEB PRN (16:15)
[2023-11-19] MEDS ORDERED: ALBUTEROL SULF 2.5 MG/0.5ML(0.5%) NEB SOLN NEB PRN (16:15)
[2023-11-19] MEDS: ALBUTEROL SULF 2.5 MG/0.5ML(0.5%) NEB SOLN NEB ONE (19:15)
[2023-11-19] MEDS: IPRATROPIUM BROM 0.5 MG/2.5ML INH SOL NEB ONE (19:15)
[2023-11-19] MEDS: SODIUM CHLOR 0.9% PF (SALINE LOCK) 10ML VIAL/SYR IV SCH (21:58)
[2023-11-19] MEDS: APIXABAN 5 MG TAB PO SCH (21:58)
[2023-11-20] VITALS (9 sets, daily range): BP systolic 112–125; BP diastolic 63–79; PULSE 66–78; RESP 14–18; TEMP 36.7; O2SAT 94–98
[2023-11-20] MEDS ORDERED: ENOXAPARIN SOD 40 MG/0.4 ML SYRINGE SC SCH (10:00)
[2023-11-20] MEDS ORDERED: FLUT1AER3 IN (11:37)
== END 2023-11-20 19:50 | disposition home or self-care (01) | DRG 342 ==
LOC: ER 11:03 → EDBD 11:03 → OVERFLOW 14:35 → WEST WING 17:57
PROVIDERS: ADMIT Family Medicine; ATTEND Family Medicine
PROC: 0SSCXZZ Reposition Right Knee Joint, External Approach (ICD-10-PCS; principal; 2023-11-19)
DX: S83.104A Unspecified dislocation of right knee, initial encounter (principal); J96.21 Acute and chronic respiratory failure with hypoxia; J44.1 Chronic obstructive pulmonary disease with (acute) exacerbation; J45.901 Unspecified asthma with (acute) exacerbation; K40.90 Unilateral inguinal hernia, without obstruction or gangrene, not specified as recurrent; J96.22 Acute and chronic respiratory failure with hypercapnia; F17.200 Nicotine dependence, unspecified, uncomplicated; I10 Essential (primary) hypertension; Z86.73 Personal history of transient ischemic attack (TIA), and cerebral infarction without residual deficits; Z82.49 Family history of ischemic heart disease and other diseases of the circulatory system; Z79.899 Other long term (current) drug therapy; Z79.01 Long term (current) use of anticoagulants; Z85.118 Personal history of other malignant neoplasm of bronchus and lung; Y93.89 Activity, other specified; X58.XXXA Exposure to other specified factors, initial encounter; Y92.89 Other specified places as the place of occurrence of the external cause; Y99.8 Other external cause status; I25.2 Old myocardial infarction; Z86.711 Personal history of pulmonary embolism
CPT/HCPCS: 36415; 71045; 73560; 80048; 84484; 85025; 94640; 99291; G0378

== ENCOUNTER 2023-11-23 03:59 | Emergency (ER) | payer MEDICARE, MEDICAID ==
[~2023-11-23] VITALS: Ht 175.3 cm; Wt 76.4 kg
[~2023-11-23 03:59] MED LIST changes: -UMEC1AER IN
[2023-11-23 04:50] VITALS: BP 128/71; TEMP 98.9
[2023-11-23] MEDS: HYDROcodone-ACET 5/325MG TAB PO ONE (04:50)
[2023-11-23 05:06] VITALS: PULSE 88; RESP 18; O2SAT 98
[2023-11-23] MEDS ORDERED: METH-1181 PO (06:06)
== END 2023-11-23 06:16 | disposition home or self-care (01) ==
LOC: EDBD 03:59 → ER 03:59
DX: S83.8X1A Sprain of other specified parts of right knee, initial encounter (principal); M17.12 Unilateral primary osteoarthritis, left knee; I10 Essential (primary) hypertension; F17.200 Nicotine dependence, unspecified, uncomplicated; J45.909 Unspecified asthma, uncomplicated; J44.9 Chronic obstructive pulmonary disease, unspecified; Z79.899 Other long term (current) drug therapy; Z86.73 Personal history of transient ischemic attack (TIA), and cerebral infarction without residual deficits; X58.XXXA Exposure to other specified factors, initial encounter; Y93.89 Activity, other specified; Y92.89 Other specified places as the place of occurrence of the external cause; Y99.8 Other external cause status
CPT/HCPCS: 73700

== ENCOUNTER 2023-11-24 12:59 | Inpatient (IN) | payer MEDICARE, MEDICAID ==
[~2023-11-24] VITALS: Ht 172.7 cm; Wt 64.2 kg
[~2023-11-24 12:59] MED LIST changes: +METH-1181 PO
[2023-11-24 16:17] LABS: Urine Bacteria None Seen /hpf (None Seen)
[2023-11-24 17:06] LABS: Urine Blood Negative /uL (Negative); Urine Clarity Clear (Clear); Urine Color Light-Yellow (Yellow); Urine Mucus FEW (None Seen); Urine Protein, UAD 1+ (Negative); Urine Specific Gravity 1.024 (1.001-1.035); Urine Urobilinogen Normal (Negative); Urine WBC 1 /hpf (0 - 3)
[2023-11-24 18:49] LABS: Anion Gap 8 (5-15); Carbon Dioxide 25 mmol/L (20-31); Chloride 110 mmol/L (98-107); Potassium 4.1 mmol/L (3.5-5.1); Sodium 143 mmol/L (136-145)
[2023-11-24 18:50] LABS: Basophils # (auto) 0.1 10 ^3/uL (0-0.2); Basophils % (auto) 0.7 % (0.0-2.0); Calcium 9.7 mg/dL (8.7-10.4); Eosinophils # (auto) 0.2 10 ^3/uL (0-0.8); Eosinophils % (auto) 1.3 % (0.0-7.0); Hematocrit 45.6 % (41.0-53.0); Hemoglobin 15.1 g/dL (13.5-17.5); Lymphocytes # (auto) 1.1 10 ^3/uL (0.4-5.4); Lymphocytes % (auto) 8.5 % (10.0-50.0); Mean Corpuscular Hemoglobin 28.2 pg (28.0-32.0); Mean Corpuscular Hgb Conc. 33.1 g/dL (32.0-36.0); Mean Corpuscular Volume 85.1 fL (80.0-100.0); Monocytes # (auto) 0.9 10 ^3/uL (0-1.3); Monocytes % (auto) 6.8 % (0.0-12.0); Neutrophils # (auto) 10.9 10 ^3/uL (1.6-8.6); Neutrophils % (auto) 82.7 % (37.0-80.0); Nucleated Red Blood Cells % 0.1 %; Platelet Count (auto) 306 10^3/uL (140-450); Red Blood Cells 5.36 10^6/uL (4.5-5.90); White Blood Cell 13.2 10^3/uL (4.4-10.8)
[2023-11-24 18:54] LABS: Glucose 98 mg/dL (74-106)
[2023-11-24 18:55] LABS: BUN/Creatinine Ratio 6.7 (10.0-20.0); Blood Urea Nitrogen 7 mg/dL (9-23)
[2023-11-24] MEDS ORDERED: IPRATROPIUM BROM 0.5 MG/2.5ML INH SOL NEB SCH (23:45)
[2023-11-25] VITALS (15 sets, daily range): BP systolic 124–162; BP diastolic 64–89; PULSE 69–93; RESP 16–20; TEMP 97.8–98.8; O2SAT 84–100
[2023-11-25 00:38] LABS: INR 0.99 (0.9-1.15); Partial Thromboplastin Time 26.8 SEC (24.5-34.5); Prothrombin Time 10.5 sec (9.3-11.8)
[2023-11-25] MEDS: LEVALBUTEROL HCL 1.25 MG/3 ML NEB NEB SCH (01:27)
[2023-11-25] MEDS: IPRATROPIUM BROM 0.5 MG/2.5ML INH SOL NEB SCH ×2 (01:27→17:59)
[2023-11-25 04:13] LABS: COVID19 ANTIGEN SOFIA FIA NEGATIVE (NEGATIVE)
[2023-11-25] MEDS: ERGOCALCIFEROL 50,000 UNIT(1.25MG) CAP PO SCH (04:34)
[2023-11-25] MEDS ORDERED: VANCOMYCIN PER PHARMACY 0 MG IV SCH (05:30)
[2023-11-25 05:37] LABS: Basophils # (auto) 0.1 10 ^3/uL (0-0.2); Basophils % (auto) 0.6 % (0.0-2.0); Eosinophils # (auto) 0.3 10 ^3/uL (0-0.8); Eosinophils % (auto) 2.3 % (0.0-7.0); Hematocrit 45.7 % (41.0-53.0); Hemoglobin 15.1 g/dL (13.5-17.5); Lymphocytes # (auto) 1.6 10 ^3/uL (0.4-5.4); Lymphocytes % (auto) 12.6 % (10.0-50.0); Mean Corpuscular Hgb Conc. 33.1 g/dL (32.0-36.0); Mean Corpuscular Volume 84.6 fL (80.0-100.0); Monocytes % (auto) 7.7 % (0.0-12.0); Neutrophils # (auto) 9.6 10 ^3/uL (1.6-8.6); Neutrophils % (auto) 76.8 % (37.0-80.0); Platelet Count (auto) 286 10^3/uL (140-450); Red Blood Cells 5.39 10^6/uL (4.5-5.90); Red Cell Distribution Width 16.5 % (11.8-14.3); White Blood Cell 12.5 10^3/uL (4.4-10.8)
[2023-11-25] MEDS: MORPHINE SULFATE INJ 2 MG/ml SYRG IV PRN (05:44)
[2023-11-25 05:47] LABS: Calcium 9.9 mg/dL (8.7-10.4); Chloride 109 mmol/L (98-107); Potassium 4.5 mmol/L (3.5-5.1); Sodium 143 mmol/L (136-145)
[2023-11-25 05:48] LABS: Anion Gap 8 (5-15); Carbon Dioxide 26 mmol/L (20-31)
[2023-11-25 05:53] LABS: BUN/Creatinine Ratio 7.4 (10.0-20.0); Blood Urea Nitrogen 8 mg/dL (9-23); Glucose 89 mg/dL (74-106)
[2023-11-25 06:48] LABS: Albumin 4.5 g/dL (3.2-4.8); Bilirubin, Direct 0.2 mg/dL (<0.3); Bilirubin, Total 0.6 mg/dL (0.2-1.0); Total Protein 7.1 g/dL (5.7-8.2)
[2023-11-25] MEDS: cefTRIAXone 2GM/50ML D5W 50 ML IV ONE (07:03)
[2023-11-25] MEDS ORDERED: ENALAPRILAT 1.25 MG/ML-1ML VIAL IV PRN (08:15)
[2023-11-25] MEDS: VANCOMYCIN 1GM/200ML PREMIX 200 ML IV ONE (09:04)
[2023-11-25] MEDS: amLODIPine BESYLATE 5 MG TAB PO SCH (09:05)
[2023-11-25] MEDS: ASPirin 81 mg TAB PO SCH (09:05)
[2023-11-25 12:19] LABS: Amphetamine Screen, Urine Neg (NEGATIVE); Barbiturate Scree,Urine Neg (NEGATIVE); Benzodiazephine Screen, Urine Neg (NEGATIVE)
[2023-11-25 12:20] LABS: Cannabinoid Screen, Urine Neg (NEGATIVE); Cocaine Screen, Urine Neg (NEGATIVE); Opiate Scree,Urine Neg (NEGATIVE); Phencyclidine Screen, Urine Neg (NEGATIVE)
[2023-11-25] MEDS ORDERED: cefTRIAXone 1GM/50ML D5W 50 ML IV ONE (14:15)
[2023-11-25] MEDS: VANCOMYCIN 750mg/150ml 150 ML IV SCH (21:19)
[2023-11-26] VITALS (15 sets, daily range): BP systolic 115–138; BP diastolic 67–96; PULSE 64–90; RESP 16–24; TEMP 97.8–98.4; O2SAT 93–100
[2023-11-26] MEDS: IPRATROPIUM BROM 0.5 MG/2.5ML INH SOL NEB SCH (06:56)
[2023-11-26] MEDS: cefTRIAXone 1GM/50ML D5W 50 ML IV SCH (09:22)
[2023-11-26] MEDS: amLODIPine BESYLATE 5 MG TAB PO SCH (09:25)
[2023-11-26] MEDS ORDERED: KETAMINE 50mg/ML 1ml syringe ONE (11:08)
[2023-11-26] MEDS ORDERED: fentaNYL CITRATE 100 MCG/2 ML VL ONE (11:10)
[2023-11-26] MEDS ORDERED: ONDANSETRON HCL 4 MG/2 ML VIAL IV ONE (12:00)
[2023-11-26] MEDS: ACETAMINOPHEN 500 MG TAB PO PRN (16:36)
[2023-11-27] VITALS (20 sets, daily range): BP systolic 103–138; BP diastolic 63–72; PULSE 55–83; RESP 16–22; TEMP 98–98.8; O2SAT 90–100
[2023-11-28] VITALS (18 sets, daily range): BP systolic 114–141; BP diastolic 62–74; PULSE 59–89; RESP 16–22; TEMP 97.9–99.2; O2SAT 95–100
[2023-11-28 06:01] LABS: Basophils # (auto) 0.1 10 ^3/uL (0-0.2); Eosinophils # (auto) 0.4 10 ^3/uL (0-0.8); Eosinophils % (auto) 4.8 % (0.0-7.0); Hematocrit 41.2 % (41.0-53.0); Hemoglobin 13.7 g/dL (13.5-17.5); Lymphocytes # (auto) 1.3 10 ^3/uL (0.4-5.4); Lymphocytes % (auto) 17.3 % (10.0-50.0); Mean Corpuscular Hgb Conc. 33.4 g/dL (32.0-36.0); Monocytes # (auto) 0.9 10 ^3/uL (0-1.3); Monocytes % (auto) 12.1 % (0.0-12.0); Neutrophils # (auto) 4.8 10 ^3/uL (1.6-8.6); Neutrophils % (auto) 64.8 % (37.0-80.0); Nucleated Red Blood Cells % 0.1 %; Platelet Count (auto) 267 10^3/uL (140-450); Red Cell Distribution Width 16.1 % (11.8-14.3); White Blood Cell 7.4 10^3/uL (4.4-10.8)
[2023-11-28] MEDS: ceFAZolin 2 GM/D5W50ml 50 ML IV SCH (15:53)
[2023-11-28] MEDS ORDERED: LIDOCAINE 1% (LOCAL ANESTH.) PF 5ml SDV ID ONE (16:00)
[2023-11-28] MEDS ORDERED: SODIUM CHLOR 0.9% PF (SALINE LOCK) 10ML VIAL/SYR IV SCH (22:00)
[2023-11-29] VITALS (15 sets, daily range): BP systolic 115–139; BP diastolic 64–79; PULSE 61–78; RESP 14–20; TEMP 98–98.9; O2SAT 95–100
== END 2023-11-29 21:14 | DRG 720 ==
LOC: ER 12:59 → EDBD 12:59 → OVERFLOW 23:24 → WEST WING 23:24
PROVIDERS: ADMIT Internal Medicine; ATTEND Family Medicine
PROC: 0S9C3ZZ Drainage of Right Knee Joint, Percutaneous Approach (ICD-10-PCS; 2023-11-26)
PROC: 0SSCXZZ Reposition Right Knee Joint, External Approach (ICD-10-PCS; principal; 2023-11-26 11:05)
PROC: 05H933Z Insertion of Infusion Device into Right Brachial Vein, Percutaneous Approach (ICD-10-PCS; 2023-11-28)
PROC: B54MZZA Ultrasonography of Right Upper Extremity Veins, Guidance (ICD-10-PCS; 2023-11-28)
DX: A41.9 Sepsis, unspecified organism (principal); M00.861 Arthritis due to other bacteria, right knee; M25.461 Effusion, right knee; S83.014A Lateral dislocation of right patella, initial encounter; M00.9 Pyogenic arthritis, unspecified; K40.90 Unilateral inguinal hernia, without obstruction or gangrene, not specified as recurrent; F17.200 Nicotine dependence, unspecified, uncomplicated; I10 Essential (primary) hypertension; Z86.711 Personal history of pulmonary embolism; I25.2 Old myocardial infarction; Z85.118 Personal history of other malignant neoplasm of bronchus and lung; Z86.73 Personal history of transient ischemic attack (TIA), and cerebral infarction without residual deficits; Z82.49 Family history of ischemic heart disease and other diseases of the circulatory system; Z82.0 Family history of epilepsy and other diseases of the nervous system; Z80.42 Family history of malignant neoplasm of prostate; X58.XXXA Exposure to other specified factors, initial encounter; Y92.89 Other specified places as the place of occurrence of the external cause; Y93.89 Activity, other specified; Y99.8 Other external cause status; Z79.899 Other long term (current) drug therapy
CPT/HCPCS: 36415; 71045; 73560; 73700; 76000; 76881; 80048; 80076; 80202; 80307; 81001; 82306; 82565; 82607; 83605; 84443; 85025; 85610; 85730; 87040; 87081; 87426; 93970; 94640; 97110; 97116; 97163; 97530; G0378

== ENCOUNTER 2024-01-31 08:51 | Inpatient (IN) | payer MEDICARE, MEDICAID ==
[2024-01-31] VITALS (8 sets, daily range): BP systolic 120–127; BP diastolic 72–77; PULSE 93–105; RESP 13–24; TEMP 97.9–98; O2SAT 96–99
[~2024-01-31] VITALS: Ht 165.1 cm; Wt 56.3 kg
--- NOTE | 2024-01-31 09:23 | ECG ---
[facility] Test Date: 2024-01-31 Test Time: 08:55:30 Pat Name: [facility]ERA Department: ER Room: 0286T Gender: M Pocket Stitcher: DOMENIC : 1955 Requested By: CHEY BOOTH Order Number: [id number] Reading MD: Bryan Canela Measurements Intervals [place] Rate: 92 P: 99 FL: 162 QRS: -17 QRSD: 90 T: 78 QT: 376 QTc: 466 Interpretive Statements Sinus rhythm Borderline left axis deviation Low voltage, extremity leads Borderline ST elevation, anterior leads Electronically Signed On 02-04-2024 10:03:35 PST by Bryan Canela Please click the below link to view image of tracing.
[2024-01-31] MEDS: ALBUTEROL SULF 2.5 MG/0.5ML(0.5%) NEB SOLN NEB ONE (11:37)
[2024-01-31] MEDS: methylPREDNISolone SOD SUCC 40 MG/ML VL IM ONE (11:51)
--- NOTE | 2024-01-31 12:02 | DVH ---
CHEST RADIOGRAPH Indication: sob Technique: Single frontal view of the chest was obtained Comparison: XY CHEST PORTABLE on DOS: 11/28/23, XY CHEST XRAY 1 VIEW on DOS: 11/25/23 FINDINGS: Lines and Tubes: None Lungs: No focal consolidation. Pleura: Small right pleural effusion. No pneumothorax. Cardiomediastinal contours: Unremarkable Bones: No acute osseous abnormality. IMPRESSION: 1. Small right pleural effusion. HS:Y
--- NOTE | 2024-01-31 12:39 | ED.PDOC ---
History of Present Illness HPI Comments 68-year-old male, with a history of asthma, bronchitis, lung cancer, COPD, CVA, HTN, IN, PE, pleural effusion, and tobacco use, is brought in by ambulance for complaint of shortness of breath, today. Per EMS report, patient is a resident from [facility] and was brought to ED after staff called on patient's behalf for difficulty breathing that began last night and worsened this morning. On scene, patient was found with a SpO2 of 92% on 2 LPM O2, with all remaining vitals are within normal limits and stable. En route, patient was given breathing treatment and staff. At time of assessment, patient denies having any chest pain, his, cough, wheezing, fever, chills, or other associated symptoms or modifiers at this time. Chief Complaint: Shortness of Breath Time Seen by MD: 11:15 Primary Care Provider: UNKNOWN Reviewed Notes: Nurses Notes, Desktop Manager Notes, Medications, Allergies Allergies: Coded Allergies: NO KNOWN ALLERGIES (Unverified , 03/24/22) Home Meds Active Scripts Methocarbamol (Methocarbamol) 500 Mg Tab, 500 MG PO HS PRN for 7 Days, #7 TAB Prov:IVA MORAN 11/23/23 Rpxadmllbtm-Nrcpabnpvqxx-Jmqdo (Trelegy Ellipta 100-62.5-25 Mcg/INH) 1 Aer Aer, 1 AER IN ONCE for 30 Days, #30 AER Prov:DONG BAKER MD 11/20/23 Prednisone (Prednisone) 20 Mg Tab, 40 MG PO DAILY for 2 Days, #2 MG Prov:ENA ROMAN RESIDENT 09/17/23 Albuterol Sulfate (VENTOLIN MDI) 90 Mcg Ih, 90 MCG IN T.i.d. for 15 Days, #1 INH Prov:DAVID EDUARDO MD 09/10/23 Nicotine (Nicoderm 21MG/24HR) 1 Patch Ph, 1 PATCH TOP DAILY, #28 PATCH 1 Refill Prov:KADY SMITH RESIDENT 04/07/23 Amlodipine Besylate (Amlodipine Besylate) 10 Mg Tab, 1 TAB PO DAILY, #90 TAB 1 Refill Prov:VALERIO HOLDER MD 07/17/21 Apixaban Base (ELIQUIS) 5 Mg Tab, 5 MG PO BID for 90 Days, #180 TAB Prov:DORIS DIAZ MD 06/18/20 Reported Medications Albuterol Sulfate (Albuterol Sulfate Hfa) 108 Mcg/Act Aer, 2 PUFF INH Q6HR 04/07/23 Memantine Hydrochloride (Memantine HCl) 10 Mg Tab, 1 TAB PO BID 04/06/23 Information Source: Patient, Emergency Med Personnel, [facility] Medical Record, Past Medical Record Mode of Arrival: EMS Past Medical History PAST MEDICAL HISTORY: Asthma, Cancer (Lung), COPD, CVA, HTN, IN, PE Past Medical History (Other): Bronchitis, Pleural effusion Surgical History: Denies all surgeries Family History Family History: Reviewed,noncontributory to illness, Family hx of Cancer Social History Smoker: Cigarettes Alcohol: Denies ETOH Use Drugs: Denies Drug Use Lives In: Home Respiratory: reports: shortness of breath All Other Systems: Reviewed and Negative (Negative unless otherwise stated above or in HPI) Physical Exam General Appearance: No Apparent Distress, Normal HEENT: Normal ENT Inspection, Pharynx Normal, TMs Normal Neck: Full Range of Motion, Non-Tender, Normal, Normal Inspection Respiratory: Chest Non-Tender, No Accessory Muscle Use, Wheezing (Wheezing upon expiratory respirations) Cardiovascular: No Edema, No JVD, No Murmur, No Gallop, Normal Peripheral Pulses, Regular Rate/Rhythm Breast Exam: Deferred Gastrointestinal: No Organomegaly, Non Tender, No Pulsatile Mass, Normal Bowel Sounds, Soft Genitalia: Deferred Pelvic: Deferred Rectal: Deferred Extremities: No calf tenderness, Normal capillary refill, Normal inspection, Normal range of motion, Non-tender, No pedal edema Musculoskeletal : Apperance: Normal Neurologic: Alert, 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 Was a procedure done?: No EKG EKG : Pulse Rate (adult): 92 [place]: Normal Cardiac Rhythm: NSR Block: None Hypertrophy: None ST: Normal Differential Dx Considerations may include: COPD exacerbation, asthma exacerbation, pleural effusion, bronchitis, PNA, COVID-19, URI, viral syndrome X-Ray, Labs, Meds, VS Vital Signs Date Time Temp Pulse Resp B/P (MAP) Pulse Ox O2 Delivery O2 Flow Rate FiO2 01/31/24 12:39 92 01/31/24 12:00 85 14 109/63 (78) 98 01/31/24 11:37 18 99 Nasal Cannula* 4 36 01/31/24 10:00 102 20 123/72 (89) 97 01/31/24 09:20 98 18 99 Nasal Cannula* 4 36 01/31/24 09:20 97.9 98 18 120/77 (91) 99 97.9 01/31/24 08:55 92 01/31/24 08:54 98.0 98 20 137/75 (95) 98 Current Medications Medications (Trade) Dose Ordered Sig/Arnaldo Route Start Time Stop Time Status Last Admin Albuterol (Ventolin Medneb) 5 mg ONCE ONCE NEB 01/31/24 11:30 01/31/24 11:31 DC 01/31/24 11:37 Methylprednisolone Sodium Succinate (Solu Medrol) 40 mg ONCE ONCE IM 01/31/24 11:30 01/31/24 11:31 DC 01/31/24 11:51 [place] [id number] Ph: [phone] DIAGNOSTIC IMAGING Diagnostic Imaging Report : [id number] Signed PATIENT: KAISER BARRERA ACCT: [id number] UNIT: [id number] : 1955 LOC: ER ROOM / BED: / AGE / SEX: 68 / M ADM STATUS: REG ER SERVICE 1124 ORDERING PHYSICIAN: CHEY BOOTH MD PROCEDURE(s): CXRP - CHEST PORTABLE REASON: sob ORDER NUMBER(s): [id number], ACCESSION NUMBER(s): [id number] CHEST RADIOGRAPH Indication: sob Technique: Single frontal view of the chest was obtained Comparison: XY CHEST PORTABLE on DOS: 11/28/23, XY CHEST XRAY 1 VIEW on DOS: 11/25/23 FINDINGS: Lines and Tubes: None Lungs: No focal consolidation. Pleura: Small right pleural effusion. No pneumothorax. Cardiomediastinal contours: Unremarkable Bones: No acute osseous abnormality. IMPRESSION: 1. Small right pleural effusion. HS:Y ATED BY: LILLIAN ZAYAS DO DICTATED DATE/TIME: 01/31/24 1200 SIGNED BY: LILLIAN ZAYAS DO SIGNED DATE/TIME: 01/31/241199 CC: Time of 1ST Reevaluation: 11:45 Reevaluation 1ST: Unchanged Patient Education/Counseling: Diagnosis, Treatment Family Education/Counseling: No Family Present Additional Information I reviewed the following notes from patient's past medical encounters: Admission discharge summary report on 09/17/2023 The following tests were ordered, and results were reviewed by me: XY, EKG Additional Information was gathered from interviewing the following independent historians: EMT I reviewed and agreed with the following test results read by other providers: X-Ray, compared to previous x-ray, effusion and smaller. Departure 1 Departure Time of Disposition: 12:30 Impression: Primary Impression: COPD with acute exacerbation Additional Impressions: Pleural effusion Asthma exacerbation Disposition: ADMITTED INPATIENT Admit to: Tele Condition: Guarded Critical Care Note Critical Care Time?: No Stability Stability form required: No Heart Score Heart Score: Heart Score Response (Comments) Value History N/A 0 EKG N/A 0 Age N/A 0 Risk Factors N/A 0 Troponin N/A 0 Total 0 I personally scribed for CHEY BOOTH MD ([email or web address]) on 01/31/24 at 12:39. Electronically submitted by Fermín Mathis ([email or web address]). CHEY BOOTH MD Jan 31, 2024 12:39
[2024-01-31] MEDS ORDERED: ONDANSETRON HCL 4 MG/2 ML VIAL IV PRN (13:30)
[2024-01-31] MEDS ORDERED: DOCUSATE SOD 100 MG CAP PO PRN (13:30)
[2024-01-31] MEDS ORDERED: MORPHINE SULFATE INJ 2 MG/ml SYRG IV PRN ×2 (13:30)
[2024-01-31] MEDS ORDERED: ALBUTEROL SULF 2.5 MG/0.5ML(0.5%) NEB SOLN NEB PRN (13:30)
[2024-01-31] MEDS ORDERED: ACETAMINOPHEN 325 MG TAB PO PRN (13:30)
[2024-01-31] MEDS ORDERED: NITROGLYCERIN 0.4 MG SL TAB SL PRN (13:30)
--- NOTE | 2024-01-31 13:55 | DVHHP2 ---
History of Present Illness Reason for Visit: Shortness of breath History of Present Illness Brandon Gentile is a 68-year-old male with past medical history of hypertension, COPD, asthma, bronchitis, NM, PE, pleural effusions, stroke with right-sided deficits, and lung cancer with left lobectomy who presents to the ED today with shortness of Breath times a week and a half. Per patient he reports that [facility] and while he was watching TV a week and a half ago he developed shortness of breath. Patient states that there are no triggering or alleviating factors. Patient also reports that he is on 2 L oxygen consistently day and night. He also reports that he is compliant with his medications. Patient also uses a cane for ambulation. Patient denies any chest pain, fever, chills, nausea, vomiting, diarrhea, lightheadedness and dizziness. Cardiovascular: HTN, NM Pulmonary: Asthma, Bronchitis, COPD, Other (pleural effusion and lung CA), Pulmonary embolus SPECIAL ED ASSISTANT: CVA (right sided deficits) Past Surgical History Left sided lobectomy Family History: Cancer Smoke: Quit ALCOHOL: none Drugs: None Lives: Other Domestic Violence: Neg Review of Systems Constitutional: No: Fever, Chills, Sweats, Weakness, Malaise, Other Eyes: No: Pain, Vision change, Conjunctivae inflammation, Eyelid inflammation, Other, Redness ENT: No: Ear pain, Ear discharge, Nose pain, Nose discharge, Nose congestion, Mouth pain, Mouth swelling, Throat pain, Throat swelling, Other Respiratory: Shortness of breath; No: Cough, Dry, SOB with excertion, Wheezing, Hemoptysis, Pleuritic Pain, Sputum, Wheezing, Other Cardiovascular: No: Chest Pain, Palpitations, Orthopnea, Paroxysmal Noc. Dyspnea, Edema, Lt Headedness, Other Gastrointestinal: No: Nausea, Vomiting, Abdominal Pain, Diarrhea, Constipation, Melena, Hematochezia, Other Genitourinary: No Dysuria, No Frequency, No Incontinence, No Hematuria, No Retention, No Other Musculoskeletal: No: other, neck pain, shoulder pain, arm pain, back pain, hand pain, leg pain, foot pain Skin: No: Rash, Lesions, Jaundice, Bruising, Other Neurological: Other (right sided deficits from previous stroke); No: Weakness, Numbness, Incoordination, Change in speech, Confusion, Seizures Allergies: Coded Allergies: NO KNOWN ALLERGIES (Unverified , 03/24/22) Exam Vital Signs Vital Signs Date Time Temp Pulse Resp B/P (MAP) Pulse Ox O2 Delivery O2 Flow Rate FiO2 01/31/24 12:39 92 01/31/24 12:00 14 109/63 (78) 98 01/31/24 11:37 Nasal Cannula* 4 36 01/31/24 09:20 97.9 97.9 General Appearance: Alert, Oriented X3, Cooperative, No acute distress HEENT: Atraumatic, PERRLA, EOMI, Mucous membr. moist/pink Respiratory: Normal air movement Cardiovascular: Regular rate, Normal S1, Normal S2, No murmurs Abdominal: Normal bowel sounds, Soft, No tenderness, No hepatospenomegaly, No masses Extremities: No clubbing, No cyanosis, No edema, Normal pulses, No tenderness/swelling Skin: No rashes, No breakdown, No significant lesion Neuro: Normal speech, Normal tone, Sensation intact Psych/Mental Status: Mental status NL, Mood NL Assessment/Plan Assessment/Plan Assessment/Plan: Acute on chronic COPD exacerbation Leukocytosis likely 2nd to UTI Right sided pleural effusion R/O PE UA Troponin's BNP Respiratory treatments Chest x-ray EKG Steroids Oxygen dependent Labs A.m. labs IV Abx CTA chest Hypertension continue home meds Hx of CVA continue home meds monitor COPD Asthma Bronchitis Lung cancer Pleural effusions resp txs O2 continue home meds Hx of NM monitor Hx of PE monitor cta chest continue home meds FEN/PPX diet Ivf DVT ppx lovenox PUD ppx not indicated no hx of GERD Discussed plan of care with patient and nurse Home medications reconciled Admit to med surg Plan discussed with: Patient Date of Service: Jan 31, 2024 Billing Provider: UZAIR SIMMONS Common Visit Codes: [id number] INP/OBS CARE (MOD) UZAIR SIMMONS Jan 31, 2024 13:55
[2024-01-31 14:03] LABS: Basophils # (auto) 0.1 10 ^3/uL (0-0.2); Eosinophils # (auto) 0.3 10 ^3/uL (0-0.8); Eosinophils % (auto) 2.4 % (0.0-7.0); Hemoglobin 13.4 g/dL (13.5-17.5)
[2024-01-31 14:05] LABS: Basophils % (auto) 0.8 % (0.0-2.0); Hematocrit 40.9 % (41.0-53.0); Lymphocytes # (auto) 0.8 10 ^3/uL (0.4-5.4); Lymphocytes % (auto) 6.1 % (10.0-50.0); Mean Corpuscular Hemoglobin 26.9 pg (28.0-32.0); Mean Corpuscular Hgb Conc. 32.6 g/dL (32.0-36.0); Mean Corpuscular Volume 82.3 fL (80.0-100.0); Monocytes # (auto) 0.2 10 ^3/uL (0-1.3); Monocytes % (auto) 1.9 % (0.0-12.0); Neutrophils # (auto) 11.2 10 ^3/uL (1.6-8.6); Neutrophils % (auto) 88.8 % (37.0-80.0); Platelet Count (auto) 313 10^3/uL (140-450); Red Blood Cells 4.97 10^6/uL (4.5-5.90); Red Cell Distribution Width 16.1 % (11.8-14.3); White Blood Cell 12.7 10^3/uL (4.4-10.8)
[2024-01-31 14:24] LABS: Potassium 4.4 mmol/L (3.5-5.1); Sodium 144 mmol/L (136-145)
[2024-01-31 14:25] LABS: Anion Gap 8 (5-15); Carbon Dioxide 27 mmol/L (20-31)
[2024-01-31 14:31] LABS: BUN/Creatinine Ratio 5.4 (10.0-20.0); Blood Urea Nitrogen < 5 mg/dL (9-23); Chloride 109 mmol/L (98-107); Glucose 118 mg/dL (74-106)
[2024-01-31] MEDS: cefTRIAXone 1GM/50ML D5W 50 ML IV ONE (15:20)
[2024-01-31 15:41] LABS: Urine Bacteria FEW /hpf (None Seen); Urine Blood Negative /uL (Negative); Urine Budding Yeast OCCASIONAL /hpf (None Seen); Urine Clarity Clear (Clear); Urine Color Light-Yellow (Yellow); Urine Protein, UAD TRACE (Negative); Urine Specific Gravity 1.012 (1.001-1.035); Urine Urobilinogen Normal (Negative); Urine WBC 8 /hpf (0 - 3)
[2024-01-31] MEDS: IOHEXOL 350 MG/ML 100ML IJ ONE ×2 (16:07→21:31)
[2024-01-31] MEDS: ALBUTEROL SULF 2.5 MG/0.5ML(0.5%) NEB SOLN NEB SCH (16:57)
[2024-01-31] MEDS: IPRATROPIUM BROM 0.5 MG/2.5ML INH SOL NEB SCH (16:57)
[2024-01-31] MEDS: AZITHROMYCIN 500MG/ 250ML 250 ML IV ONE (18:18)
[2024-01-31] MEDS: methylPREDNISolone SOD SUCC 40 MG/ML VL IV SCH (21:29)
[2024-02-01] VITALS (20 sets, daily range): BP systolic 103–133; BP diastolic 63–78; PULSE 65–104; RESP 17–26; TEMP 97.4–98.3; O2SAT 93–100
[2024-02-01] MEDS: IPRATROPIUM BROM 0.5 MG/2.5ML INH SOL NEB PRN (01:05)
[2024-02-01 05:51] LABS: Basophils # (auto) 0 10 ^3/uL (0-0.2); Eosinophils # (auto) 0 10 ^3/uL (0-0.8); Hemoglobin 12.8 g/dL (13.5-17.5); Lymphocytes # (auto) 0.7 10 ^3/uL (0.4-5.4); Mean Corpuscular Volume 82.8 fL (80.0-100.0); Monocytes # (auto) 0.2 10 ^3/uL (0-1.3); Monocytes % (auto) 2.1 % (0.0-12.0); Red Cell Distribution Width 15.9 % (11.8-14.3)
[2024-02-01 05:54] LABS: Basophils % (auto) 0.1 % (0.0-2.0); Hematocrit 39.2 % (41.0-53.0); Mean Corpuscular Hemoglobin 27.1 pg (28.0-32.0); Mean Corpuscular Hgb Conc. 32.7 g/dL (32.0-36.0); Neutrophils # (auto) 8.6 10 ^3/uL (1.6-8.6); Neutrophils % (auto) 90.8 % (37.0-80.0); Platelet Count (auto) 307 10^3/uL (140-450); Red Blood Cells 4.74 10^6/uL (4.5-5.90); White Blood Cell 9.4 10^3/uL (4.4-10.8)
[2024-02-01 06:15] LABS: Alanine Aminotransferase 14 U/L (7-40); Albumin 3.9 g/dL (3.2-4.8); Anion Gap 9 (5-15); Aspartate Aminotransferase 13 U/L (13-40); BUN/Creatinine Ratio 9.7 (10.0-20.0); Blood Urea Nitrogen 10 mg/dL (9-23); Carbon Dioxide 26 mmol/L (20-31); Chloride 104 mmol/L (98-107); Potassium 4.9 mmol/L (3.5-5.1); Sodium 139 mmol/L (136-145)
[2024-02-01 06:16] LABS: Total Protein 6.3 g/dL (5.7-8.2)
[2024-02-01 06:28] LABS: Alkaline Phosphatase 139 U/L (46-116); Bilirubin, Total 0.2 mg/dL (0.2-1.0); Glucose 224 mg/dL (74-106)
[2024-02-01] MEDS: cefTRIAXone 1GM/50ML D5W 50 ML IV SCH (08:31)
[2024-02-01] MEDS: AZITHROMYCIN 500MG/ 250ML 250 ML IV SCH (10:13)
[2024-02-01 10:19] LABS: Thyroid Stimulating Hormone 0.45 uIU/mL (0.55-4.78)
--- NOTE | 2024-02-01 11:08 | DVH ---
CTA Chest with intravenous contrast INDICATION: r/o pe COMPARISON: CT CT R KNEE WO CONTRAST on DOS: 11/25/23, CT CT L KNEE WO CONTRAST on DOS: 11/23/23, CT C T ANGIO CHEST CONTRAST on DOS: 01/22/23 TECHNIQUE: Multidetector spiral CTA of the chest was performed of the chest with intravenous contrast . PULMONARY ANGIOGRAPHY PROTOCOL was utilized using a bolus-tracking technique centered on the main p ulmonary artery. Axial, coronal and sagittal multiplanar and MIP reformats were performed. CONTRAST: Type of contrast: Omni 350 Contrast injected: 100 ml Radiation dose : Chest: CTDI volume is 30 mGy. Dose-length product is 445.2 mGy*cm The dose indicators for CT are the volume computed Tomography (CT) dose Index (CTDIvol) and the dose Length product (DLP), and are measured in units of mGy and mGy-cm, respectively. These indicators are not patient dose, but values generated from the CT scanner acquisition factors. The report includes radiation exposure data for exposures received during this examination. Findings: Pulmonary artery: No pulmonary embolism Lower neck: Normal thyroid. Lungs: Mild consolidation left lower lung. Heart/Vascular Structures: Normal heart size. No pericardial effusion. Lymph Nodes: Possible lymph node in the right infrahilar region measuring up to 15 mm in short axis. Pleura: No pleural effusion or significant pneumothorax. Musculoskeletal: No acute osseous abnormality. Soft tissues: Normal. Upper abdomen: Limited portions of the upper abdomen are unremarkable. IMPRESSION: 1. No pulmonary embolism. 2. Mild consolidation in the left lower lung. Possible lymph node in the right infrahilar region chery uring up to 15 mm in short axis. Attention on follow-up is recommended. HS:Y
[2024-02-01 11:10] LABS: Lactic Acid w/Reflex 3.7 mmol/L (0.4-2.0)
[2024-02-01 11:19] LABS: Amphetamine Screen, Urine Neg (NEGATIVE); Barbiturate Scree,Urine Neg (NEGATIVE); Benzodiazephine Screen, Urine Neg (NEGATIVE); Cannabinoid Screen, Urine Neg (NEGATIVE); Cocaine Screen, Urine Neg (NEGATIVE); Opiate Scree,Urine Neg (NEGATIVE); Phencyclidine Screen, Urine Neg (NEGATIVE)
[2024-02-01 11:52] LABS: COVID19 ANTIGEN SOFIA FIA NEGATIVE (NEGATIVE)
[2024-02-01 11:53] LABS: Rapid Influenza A Negative (Negative); Rapid Influenza B Negative (Negative)
[2024-02-01 12:29] LABS: INR 0.96 (0.9-1.15); Prothrombin Time 10.2 sec (9.3-11.8)
--- NOTE | 2024-02-01 14:21 | DVHSR ---
APPROVED REPORT EXAM: LIMITED Two-dimensional and M-mode echocardiogram with Doppler and color Doppler. Blood Pressure: 127/65 mmHg INDICATION cardiac delineation RISK FACTORS Height: 5'5, Weight: 134 DIMENSIONS LVDd (3.8-5.7cm)LA (2D)3.4 (1.9-4.0cm)Aortic Root (2.0-3.7cm) EF (%) 55.0 (55-70%)Rt. Atrium (1.9-4.0cm)Asc. Aorta cm Mitral Valve MitralMitral Stenosis E wave0.78m/sMV Mean GR.mmHg A wave0.97m/sMV Peak GR.mmHg E/A ratio0.82D MVAcm2 DECEL [id number] 1/2 Timems Aortic Valve Aortic ValveAortic Stenosis V10.95m/Anton Mean GR.2mmHg V21.04m/Anton Peak GR.4mmHg Other Information Quality : Technically LimitedRhythm : Technically limited study due to pt pushing arm away while scanning Conclusion Normal left ventricular size and dimension. Normal left ventricular systolic function estimated ejec tion fraction 55%. There is a grade 1 diastolic dysfunction. Normal right ventricular size and dimension. Normal right ventricular systolic function. Normal biatrial size and dimension. Normal aortic valve structure and function. Normal mitral valve structure and function. Normal tricuspid valve structure and function. Pulmonary valve is grossly normal. No Pericardial effusion.
--- NOTE | 2024-02-01 15:15 | DVHPNRES ---
Progress Note Date Seen: Feb 01, 2024 Resident Creating Document: NIRALI CLARK RESIDENT Has the PT tested + for MRSA If YES, has PT been informed?: Yes Medical Necessity Reason Pt with a Central, PICC or Fol: No Subjective Review of Systems 68-year old male patient with significant past medical history of asthma, h ypertension, COPD, chronic bronchitis, myocardial infarction, pulmonary embolism, peripheral effusion, stroke with right-sided deficits and lung cancer status post lobectomy, and inguinal hernia for which surgery was laid after missing his surgical appointment. The patient reports shortness of breaths for the past week . He uses 2 L of supplemental oxygen during the day and night. He was recently treated with methylprednisolone ceftriaxone, azithromycin for possible pneumonia and urinary tract infection based on recent urinalysis, blood glucose levels were noted to be elevated and 212 but may be caused by recent steroid use. Chest x-ray showed small right sided pleural effusion and normal EKG, the last echocardiogram was taken on March of this year and was 60% ejection fraction. Patient was examined at bedside, He denies chest pain but he continues experiencing intermittent shortness of breath. Recent lactic acid level was 3.7, alkaline phosphatase and lactate dehydrogenase were also elevated, PSA still pending. Review of systems Constitutional: No: Fever, Chills, Sweats, Weakness, Malaise, Other Eyes: No: Pain, Vision change, Conjunctivae inflammation, Eyelid inflammation, Other, Redness ENT: No: Ear pain, Ear discharge, Nose pain, Nose discharge, Nose congestion, Mouth pain, Mouth swelling, Throat pain, Throat swelling, Other Respiratory: No Wheezing, Hemoptysis, Pleuritic Pain, Sputum, Wheezing, Other Cardiovascular: No: Chest Pain, Palpitations, Orthopnea, Paroxysmal Noc. Dyspnea, Edema, Lt Headedness, Other Gastrointestinal: No: Nausea, Vomiting, Abdominal Pain, Diarrhea, Constipation, Melena, Hematochezia, Other Musculoskeletal: No: other, neck pain, shoulder pain, arm pain, back pain, hand pain, leg pain, foot pain Neurological:; No: Weakness, Numbness, Incoordination, Change in speech, Confusion, Seizures Patient reports: Feels better Objective vital signs Vital Sign Date Time Temp Pulse Resp B/P (MAP) Pulse Ox O2 Delivery O2 Flow Rate FiO2 02/01/24 13:00 97.9 84 20 123/71 (88) 100 97.9 12/17/24 11:38 Nasal Cannula 2.0 02/01/24 10:00 32 Total Intake and Output 01/31/24 01/31/24 02/01/24 15:00 23:00 07:00 Intake Total 300 ml 1605 ml Output Total 500 ml Balance 300 ml 1105 ml medications Current Medications Medications Dose Ordered Sig/Arnaldo Route Start Time Stop Time Status Last Admin Dose Admin Acetaminophen/ Hydrocodone Bitart 1 tab Q4HP PRN PO 01/31/24 13:30 Ondansetron HCl 4 mg Q4HP PRN IV 01/31/24 13:30 Docusate Sodium 100 mg BIDPRN PRN PO 01/31/24 13:30 Acetaminophen 650 mg Q6HP PRN PO 01/31/24 13:30 Morphine Sulfate 2 mg Q4HPRN PRN IV 01/31/24 13:30 Nitroglycerin 0.4 mg Q5MINP PRN SL 01/31/24 13:30 Morphine Sulfate 2 mg Q30M PRN IV 01/31/24 13:30 Methylprednisolone Sodium Succinate 40 mg BID IV 01/31/24 22:00 02/01/24 08:32 40 MG Albuterol 2.5 mg Q6HR NEB 01/31/24 18:00 02/01/24 11:36 2.5 MG Albuterol 2.5 mg Q4HPRN PRN NEB 01/31/24 13:30 Ipratropium [place] 0.5 mg Q6HWA NEB 01/31/24 18:00 02/01/24 11:36 0.5 MG Ipratropium [place] 0.5 mg Q4HPRN PRN NEB 01/31/24 13:30 02/01/24 01:05 0.5 MG Ceftriaxone Sodium 50 ml @ 100 mls/hr DAILY@09 IV 02/01/24 09:00 02/01/24 08:31 100 MLS/HR Azithromycin 250 ml @ 125 mls/hr DAILY IV 02/01/24 10:00 02/01/24 10:13 125 MLS/HR Examination Examination General Appearance: Alert, Oriented X3, Cooperative, No acute distress HEENT: EOMI Respiratory: Clear to auscultation, Normal air movement Cardiovascular: Regular rate, Normal S1, Normal S2 Abdominal: Normal bowel sounds Extremities: No cyanosis, No edema, Normal pulses, No tenderness/swelling Skin: No rashes, No breakdown Neuro: Normal speech, Strength at 5/5 X4 ext, Normal tone, Sensation intact, Cranial nerves 3-12 NL, Reflexes 2+ Psych/Mental Status: Mental status NL, Mood NL laboratory and microbiology Laboratory Tests 02/01/24 05:12 Test 02/01/24 05:12 Range/Units Serum Glucose 224 #H 74-106 mg/dL Problem List/Assessment/Plan Problem List/Assessment/Plan #Acute respiratory failure due to Acute on chronic COPD exacerbation -Methylprednisolone 40 mg b.i.d. IV -Ipratropium bromide 0.5 mg neb -Albuterol q.6 neb -Oxygen supplementation through nasal cannula #Sepsis likely due to urinary tract infection ? pneumonia , resolved -ceftriaxone IV -Azithromycin IV #essential Hypertension -continue home meds #inguinal hernia -Follow up with the outpatient #Hx of CVA -continue home meds -monitor #History of Asthma #Bronchitis #history of Lung cancer status post surgical resection #Pleural effusions -resp txs -O2 -continue home meds #Hx of [place] -monitor #Hx of PE -CTA chest Was negative for pulmonary embolism -continue home meds -Continue apixaban Case discussed with Dr. Diop goals of care discussed with the patient for 38 minutes Code status: Full code1 Plan discussed with: Patient My Orders My Orders Orders - NIRALI CLARK RESIDENT Procedure Category Date Status Time Urine Bacterial ANNAMARIA 02/01/24 In Process Culture 10:30 Blood Culture ANNAMARIA 02/01/24 Uncollected 08:46 Echo 2d Mode Cardiac US 02/01/24 Resulted DOP 08:46 Psa Total+% Free LAB 02/01/24 In Process 08:46 Date of Service: Feb 01, 2024 Billing Provider: JHON COLLINS MD Common Visit Codes: [id number] INP/OBS CARE(HIGH) Secondary Visit Codes: [id number] CARE PLAN 30 MINUTES NIRALI CLARK RESIDENT Feb 01, 2024 15:15 JHON COLLINS MD Feb 01, 2024 19:31
[2024-02-01] MEDS: APIXABAN 5 MG TAB PO SCH (23:20)
[2024-02-02] VITALS (19 sets, daily range): BP systolic 108–119; BP diastolic 56–66; PULSE 70–94; RESP 14–26; TEMP 98.3–99; O2SAT 92–100
[2024-02-02] MEDS: ALBUTEROL SULF 2.5 MG/0.5ML(0.5%) NEB SOLN NEB SCH (06:22)
[2024-02-02 07:57] LABS: Potassium 4.8 mmol/L (3.5-5.1); Sodium 141 mmol/L (136-145)
[2024-02-02 07:58] LABS: Anion Gap 8 (5-15); Carbon Dioxide 26 mmol/L (20-31)
[2024-02-02 08:02] LABS: Calcium 10.5 mg/dL (8.7-10.4); Chloride 107 mmol/L (98-107)
[2024-02-02 08:04] LABS: BUN/Creatinine Ratio 9.8 (10.0-20.0); Blood Urea Nitrogen 10 mg/dL (9-23)
[2024-02-02 08:05] LABS: Hematocrit 42.7 % (41.0-53.0); Hemoglobin 13.6 g/dL (13.5-17.5); Mean Corpuscular Hemoglobin 26.7 pg (28.0-32.0); Mean Corpuscular Hgb Conc. 31.8 g/dL (32.0-36.0); Mean Corpuscular Volume 83.9 fL (80.0-100.0); Platelet Count (auto) 340 10^3/uL (140-450); Red Blood Cells 5.09 10^6/uL (4.5-5.90); Red Cell Distribution Width 16.3 % (11.8-14.3); White Blood Cell 15.3 10^3/uL (4.4-10.8)
[2024-02-02 08:06] LABS: PSA Free 0.45 ng/mL; Prostate Specific Antigen 3.4 ng/mL (0.0-4.0)
[2024-02-02 08:07] LABS: Glucose 145 mg/dL (74-106)
[2024-02-02 08:09] LABS: Band Neutrophils % (manual) 0; Basophils % (manual) 0 (0.0-2.0); Blast Cells 0; Eosinophils % (manual) 0 (0-7); Metamyelocytes % 0; Myelocytes % 0; Promyelocytes % 0; Reactive Lymphocytes 0
[2024-02-02 11:29] LABS: Lymphocytes % (manual) 4 (10.0-50.0); Monocytes % (manual) 4 (0-12); Platelet Estimate Adequate
--- NOTE | 2024-02-02 15:07 | DVHPNRES ---
Progress Note Date Seen: Feb 02, 2024 Resident Creating Document: NIRALI CLARK RESIDENT Has the PT tested + for MRSA If YES, has PT been informed?: Yes Medical Necessity Reason Pt with a Central, PICC or Fol: No Subjective Review of Systems 68-year old male patient with significant past medical history of asthma, h ypertension, COPD, chronic bronchitis, myocardial infarction, pulmonary embolism, peripheral effusion, stroke with right-sided deficits and lung cancer status post lobectomy, and inguinal hernia for which surgery was laid after missing his surgical appointment. The patient reports shortness of breaths for the past week . He uses 2 L of supplemental oxygen during the day and night. He was recently treated with methylprednisolone ceftriaxone, azithromycin for possible pneumonia and urinary tract infection based on recent urinalysis, blood glucose levels were noted to be elevated and 212 but may be caused by recent steroid use. Chest x-ray showed small right sided pleural effusion and normal EKG, the last echocardiogram was taken on March of this year and was 60% ejection fraction. Patient was examined at bedside, He denies chest pain but he continues experiencing intermittent shortness of breath,and recieving creathing treatment. Recent lactic acid level was 3. patient will need to stay at least one more day as shortness of breath associated with wheezing are still present, possible discharge to the SNF tomorrow. Physical evaluation pending. Review of systems Constitutional: No: Fever, Chills, Sweats, Weakness, Malaise, Other Eyes: No: Pain, Vision change, Conjunctivae inflammation, Eyelid inflammation, Other, Redness ENT: No: Ear pain, Ear discharge, Nose pain, Nose discharge, Nose congestion, Mouth pain, Mouth swelling, Throat pain, Throat swelling, Other Respiratory: No Wheezing, Hemoptysis, Pleuritic Pain, Sputum, Wheezing, Other Cardiovascular: No: Chest Pain, Palpitations, Orthopnea, Paroxysmal Noc. Dyspnea, Edema, Lt Headedness, Other Gastrointestinal: No: Nausea, Vomiting, Abdominal Pain, Diarrhea, Constipation, Melena, Hematochezia, Other Musculoskeletal: No: other, neck pain, shoulder pain, arm pain, back pain, hand pain, leg pain, foot pain Neurological:; No: Weakness, Numbness, Incoordination, Change in speech, Confusion, Seizures Patient reports: Feels better Changes from previous H/P or p: Changes Objective vital signs Vital Sign Date Time Temp Pulse Resp B/P (MAP) Pulse Ox O2 Delivery O2 Flow Rate FiO2 02/02/24 12:51 98.8 70 18 108/59 (75) 99 98.8 02/02/24 10:00 Nasal Cannula* 3 32 Total Intake and Output 02/01/24 02/01/24 02/02/24 15:00 23:00 07:00 Intake Total 300 ml 1400 ml 1440 ml Output Total 2275 ml 900 ml Balance 300 ml -875 ml 540 ml medications Current Medications Medications Dose Ordered Sig/Arnaldo Route Start Time Stop Time Status Last Admin Dose Admin Acetaminophen/ Hydrocodone Bitart 1 tab Q4HP PRN PO 01/31/24 13:30 Ondansetron HCl 4 mg Q4HP PRN IV 01/31/24 13:30 Docusate Sodium 100 mg BIDPRN PRN PO 01/31/24 13:30 Acetaminophen 650 mg Q6HP PRN PO 01/31/24 13:30 Morphine Sulfate 2 mg Q4HPRN PRN IV 01/31/24 13:30 Nitroglycerin 0.4 mg Q5MINP PRN SL 01/31/24 13:30 Morphine Sulfate 2 mg Q30M PRN IV 01/31/24 13:30 Methylprednisolone Sodium Succinate 40 mg BID IV 01/31/24 22:00 02/02/24 09:06 40 MG Ipratropium [place] 0.5 mg Q6HWA NEB 01/31/24 18:00 02/02/24 11:43 0.5 MG Ceftriaxone Sodium 50 ml @ 100 mls/hr DAILY@09 IV 02/01/24 09:00 02/02/24 09:05 100 MLS/HR Azithromycin 250 ml @ 125 mls/hr DAILY IV 02/01/24 10:00 02/02/24 10:03 125 MLS/HR Apixaban 5 mg BID PO 02/01/24 22:00 02/02/24 09:06 5 MG Albuterol 2.5 mg Q6HWA NEB 02/02/24 06:00 02/02/24 11:43 2.5 MG Examination General Appearance: Alert, Oriented X3, Cooperative, No acute distress HEENT: EOMI Respiratory: wheezing bilateral, no crackles/rales, Cardiovascular: Regular rate, Normal S1, Normal S2 Abdominal: Normal bowel sounds, inguinal hernia present Skin: No rashes, No breakdown Neuro: Normal speech, Strength at 5/5 X4 ext, Normal tone, Sensation intact, Cranial nerves 3-12 NL, Reflexes 2+ Psych/Mental Status: Mental status NL, Mood NL laboratory and microbiology Laboratory Tests 02/02/24 07:16 Test 02/02/24 07:16 Range/Units Serum Glucose 145 H 74-106 mg/dL Microbiology Date/Time Source Procedure Growth Status 02/01/24 10:30 Voided Urine Urine Culture - Preliminary Resulted 02/01/24 03:30 Nose MRSA Screen - Final Complete Problem List/Assessment/Plan Problem List/Assessment/Plan #Acute respiratory failure due to Acute on chronic COPD exacerbation -Methylprednisolone 40 mg b.i.d. IV -Ipratropium bromide 0.5 mg neb -Albuterol q.6 neb -Oxygen supplementation through nasal cannula #Sepsis likely due to urinary tract infection ? pneumonia , resolved #Lactic acidosis, 3 -ceftriaxone IV -Azithromycin IV #essential Hypertension -continue home meds #inguinal hernia -Follow up with the outpatient #Hx of CVA -continue home meds -monitor #History of Asthma #Bronchitis #history of Lung cancer status post surgical resection #Pleural effusions -resp txs -O2 -continue home meds #Hx of [place] -monitor #Hx of PE -CTA chest Was negative for pulmonary embolism -continue home meds -Continue apixaban Case discussed with Dr. Diop goals of care discussed with the patient for 38 minutes Code status: Full code1 Plan discussed with: Patient My Orders My Orders Orders - NIRALI CLARK Procedure Category Date Status Time Apixaban (Eliquis) PHA 02/01/24 In Process 22:00 Lactic Acid W/ Reflex LAB 02/03/24 Verified Order 04:00 Date of Service: Feb 02, 2024 Billing Provider: JHON COLLINS MD Common Visit Codes: [id number] INP/OBS CARE(HIGH) NIRALI CLARK RESIDENT Feb 02, 2024 15:07 JHON COLLINS MD Feb 02, 2024 20:26
[2024-02-03] VITALS (18 sets, daily range): BP systolic 116–143; BP diastolic 56–78; PULSE 61–85; RESP 16–22; TEMP 36.8; O2SAT 92–100
--- NOTE | 2024-02-03 09:59 | DVHDSRES ---
Discharge Summary Date of Admission Resident Creating Document: NIRALI CLARK RESIDENT Jan 31, 2024 at 13:27 Date of Discharge: Feb 03, 2024 Admitting Diagnosis COPD exacerbation likely due to pneumonia Labs/Diagnostic Data: Laboratory Results Test 02/02/24 07:16 02/01/24 13:45 02/01/24 12:16 02/01/24 11:28 White Blood Count 15.3 10^3/uL (4.4-10.8) Red Blood Count 5.09 10^6/uL (4.5-5.90) Hemoglobin 13.6 g/dL (13.5-17.5) Hematocrit 42.7 % (41.0-53.0) Mean Corpuscular Volume 83.9 fL (80.0-100.0) Mean Corpuscular Hemoglobin 26.7 pg (28.0-32.0) Mean Corpuscular Hemoglobin Concent 31.8 g/dL (32.0-36.0) Red Cell Distribution Width 16.3 % (11.8-14.3) Platelet Count 340 10^3/uL (140-450) Mean Platelet Volume 7.9 fL (6.9-10.8) Neutrophils (%) (Auto) % (37.0-80.0) Lymphocytes (%) (Auto) % (10.0-50.0) Monocytes (%) (Auto) % (0.0-12.0) Basophils (%) (Auto) % (0.0-2.0) Neutrophils # (Auto) 10 ^3/uL (1.6-8.6) Lymphocytes # (Auto) 10 ^3/uL (0.4-5.4) Monocytes # (Auto) 10 ^3/uL (0-1.3) Differential Total Cells Counted 100.0 (100) Neutrophils % (Manual) 92 (37.0-80.0) Band Neutrophils % (Manual) 0 Lymphocytes % (Manual) 4 (10.0-50.0) Monocytes % (Manual) 4 (0-12) Eosinophils % (Manual) 0 (0-7) Basophils % (Manual) 0 (0.0-2.0) Metamyelocytes % (manual) 0 Myelocytes % (Manual) 0 Promyelocytes % (Manual) 0 Blast Cells % (Manual) 0 Reactive Lymphocytes 0 Platelet Estimate Adequate Sodium Level 141 mmol/L (136-145) Potassium Level 4.8 mmol/L (3.5-5.1) Chloride Level 107 mmol/L (98-107) Carbon Dioxide Level 26 mmol/L (20-31) Anion Gap 8 (5-15) Blood Urea Nitrogen 10 mg/dL (9-23) Creatinine 1.02 mg/dL (0.700-1.30) Glomerular Filtration Rate Calc 80 mL/min (>90) BUN/Creatinine Ratio 9.8 (10.0-20.0) Serum Glucose 145 mg/dL (74-106) Calcium Level 10.5 mg/dL (8.7-10.4) Lactic Acid Level 3.0 mmol/L (0.4-2.0) POC Glucose 212 mg/dl (70-106) Prothrombin Time 10.2 sec (9.3-11.8) Prothrombin Time INR 0.96 (0.9-1.15) D-Dimer, Quantitative 1.14 mg/L FEU (0.0-0.49) Test 02/01/24 10:30 02/01/24 10:23 02/01/24 05:12 01/31/24 17:25 Urine Opiates Screen Neg (NEGATIVE) Urine Fentanyl Screen Neg (NEGATIVE) Urine Barbiturates Screen Neg (NEGATIVE) Urine Phencyclidine Screen Neg (NEGATIVE) Urine Amphetamines Screen Neg (NEGATIVE) Urine Benzodiazepines Screen Neg (NEGATIVE) Urine Cocaine Screen Neg (NEGATIVE) Urine Cannabinoids Screen Neg (NEGATIVE) Influenza Type A Antigen Negative (Negative) Influenza Type B Antigen Negative (Negative) SARS-CoV-2 Antigen (Rapid) Negative (NEGATIVE) Eosinophils (%) (Auto) 0.0 % (0.0-7.0) Eosinophils # (Auto) 0 10 ^3/uL (0-0.8) Basophils # (Auto) 0 10 ^3/uL (0-0.2) Nucleated Red Blood Cells 0.0 % Total Bilirubin 0.2 mg/dL (0.2-1.0) Aspartate Amino Transferase (AST) 13 U/L (13-40) Alanine Aminotransferase (ALT) 14 U/L (7-40) Alkaline Phosphatase 139 U/L (46-116) Lactate Dehydrogenase 266 U/L (120-246) C-Reactive Protein High Sensitivity 0.63 mg/dL (<1.0) Total Protein 6.3 g/dL (5.7-8.2) Albumin 3.9 g/dL (3.2-4.8) Free Prostate Specific Antigen 0.45 ng/mL (N/A) Percent Free Prostate Specific Ag 13.2 % (.) Prostate Specific Antigen Total 3.4 ng/mL (0.0-4.0) Thyroid Stimulating Hormone (TSH) 0.45 uIU/mL (0.55-4.78) Troponin I High Sensitivity 6 ng/L (</=54) Test 01/31/24 15:15 01/31/24 13:50 Urine Color Light-yellow (Yellow) Urine Clarity Clear (Clear) Urine pH 7.0 (5.0-9.0) Urine Specific [place] 1.012 (1.001-1.035) Urine Protein Trace (Negative) Urine Ketones Negative (Negative) Urine Blood Negative /uL (Negative) Urine Nitrite Negative (Negative) Urine Bilirubin Negative (Negative) Urine Urobilinogen Normal mg/dL (Negative) Urine Leukocyte Esterase 3+ /uL (Negative) Urine RBC 2 /hpf (0 - 3) Urine WBC 8 /hpf (0 - 3) Urine Squamous Epithelial Cells Few /hpf (<5) Urine Bacteria Few /hpf (None Seen) Urine Yeast (Budding) Occasional /hpf (None Urine Glucose Normal mg/dL (Normal) B-Type Natriuretic Peptide 18.77 pg/mL (0-100) Other Laboratory Tests 02/02/24 07:16 Brief Hx & Hospital Course: HPI: Kaiser Gentile, a 68-year-old male with a significant past medical history of asthma, COPD, chronic bronchitis, hypertension, myocardial infarction, peripheral vascular disease, and lung cancer status post lobectomy, was admitted for evaluation of shortness of breath, which was initially attributed to recent infections and underlying pulmonary dysfunction. Hospital course: He was treated for possible pneumonia with ceftriaxone and azithromycin.Laboratory results showed elevated blood glucose levels,and WBC with left shift, likely due to recent steroid use. Imaging, including chest X- ray, revealed no acute changes beyond a baseline right-sided pleural effusion. Echocardiogram earlier this year demonstrated a 60% ejection fraction, and no acute cardiac abnormalities were found during hospitalization.The patient showed clinical improvement with continued oxygen supplementation, steroid therapy, and antibiotics. He was closely monitored for any complications and remained stable during the hospital stay. Discharge Plan: The patient is being discharged to a [facility] facility for continued recovery, with a focus on physical therapy and supportive care for his ongoing respiratory and physical needs. Case discussed with goals of care discussed with the patient for 33 minutes code status: full code Operations or Procedures [place] [id number] Ph: [phone] DIAGNOSTIC IMAGING Diagnostic Imaging Report : [id number] Signed PATIENT: KAISER GENTILE RACCT: [id number] UNIT: [id number] : 1955 LOC: ER ROOM / BED: / AGE / SEX: 68 / M ADM STATUS: REG ER SERVICE 1124 ORDERING PHYSICIAN: CHEY BOOTH MD PROCEDURE(s): CXRP - CHEST PORTABLE REASON: sob ORDER NUMBER(s): [id number], ACCESSION NUMBER(s): [id number] CHEST RADIOGRAPH Indication: sob Technique: Single frontal view of the chest was obtained Comparison: XY CHEST PORTABLE on DOS: 11/28/23, XY CHEST XRAY 1 VIEW on DOS: 11/25/23 FINDINGS: Lines and Tubes: None Lungs: No focal consolidation. Pleura: Small right pleural effusion. No pneumothorax. Cardiomediastinal contours: Unremarkable Bones: No acute osseous abnormality. IMPRESSION: 1. Small right pleural effusion. HS:Y ATED BY: LILLIAN ZAYAS DO DICTATED DATE/TIME: 01/31/24 1200 SIGNED BY: LILLIAN ZAYAS DO SIGNED DATE/TIME: 01/31/24 1200 CC: [place] [id number] Ph: [phone] DIAGNOSTIC IMAGING Diagnostic Imaging Report : [id number] Signed PATIENT: KAISER GENTILE RACCT: [id number] UNIT: [id number] : 1955 LOC: [facility] ROOM / BED: 0286T / B AGE / SEX: 68 / M ADM STATUS: ADM IN SERVICE 1554 ORDERING PHYSICIAN: UZAIR SIMMONS PROCEDURE(s): CTACH - CT ANGIO CHEST CONTRAST REASON: r/o pe ORDER NUMBER(s): [id number], ACCESSION NUMBER(s): [id number] CTA Chest with intravenous contrast INDICATION: r/o pe COMPARISON: CT CT R KNEE WO CONTRAST on DOS: 11/25/23, CT CT L KNEE WO CONTRAST on DOS: 11/23/23, CT CT ANGIO CHEST CONTRAST on DOS: 01/22/23 TECHNIQUE: Multidetector spiral CTA of the chest was performed of the chest with intravenous contrast. PULMONARY ANGIOGRAPHY PROTOCOL was utilized using a bolus- tracking technique centered on the main pulmonary artery. Axial, coronal and sagittal multiplanar and MIP reformats were performed. CONTRAST: Type of contrast: Omni 350 Contrast injected: 100 ml Radiation dose : Chest: CTDI volume is 30 mGy. Dose-length product is 445.2 mGy*cm The dose indicators for CT are the volume computed Tomography (CT) dose Index (CTDIvol) and the dose Length product (DLP), and are measured in units of mGy and mGy-cm, respectively. These indicators are not patient dose, but values generated from the CT scanner acquisition factors. The report includes radiation exposure data for exposures received during this examination. Findings: Pulmonary artery: No pulmonary embolism Lower neck: Normal thyroid. Lungs: Mild consolidation left lower lung. Heart/Vascular Structures: Normal heart size. No pericardial effusion. Lymph Nodes: Possible lymph node in the right infrahilar region measuring up to 15 mm in short axis. Pleura: No pleural effusion or significant pneumothorax. Musculoskeletal: No acute osseous abnormality. Soft tissues: Normal. Upper abdomen: Limited portions of the upper abdomen are unremarkable. IMPRESSION: 1. No pulmonary embolism. 2. Mild consolidation in the left lower lung. Possible lymph node in the right infrahilar region measuring up to 15 mm in short axis. Attention on follow-up is recommended. HS:Y ATED BY: NEPTALI CISNEROS MD DICTATED DATE/TIME: 02/01/24 110 SIGNED BY: NEPTALI CISNEROS MD SIGNED DATE/TIME: 02/01/24 110 CC: Condition at Discharge: Fair Final Diagnosis/Problems List #Acute respiratory failure due to Acute on chronic COPD exacerbation due to pneumonia #Sepsis likely due to pneumonia resolved #Asymtoatic bacteriuria #essential Hypertension #inguinal hernia #Hx of CVA #History of Asthma #Bronchitis #history of Lung cancer status post surgical resection #Pleural effusions #Hx of [place] #Hx of PE [facility] Discharge Will this Physician continue t: No Discharge Instruct/Medications Diet: Cardiac 2g Na,low cholest Activity: Light activity Follow Up/Referral: follow with SNF MD within 1 week Medications: as per chart Discharge Statement: "Patient was advised to return to the ER or call 911 if any headaches, dizziness, shortness of breath, chest pain, abdominal pain, bleeding, fevers, or worsening of medical condition. Patient was counseled about treatment plan, medications, possible side effects, patientverbalized understanding. All questions were answered to the best of my ability. This discharge took greater then 30 minutes in planning, reviewing documentation, counseling the patient, and discussing with other team members." ASSESSMENT ASSESSMENT Assessment COPD exacerbation Date of Service: Feb 03, 2024 Billing Provider: JHON COLLINS MD Common Visit Codes: [id number] DISCH DAY >30min NIRALI CLARK RESIDENT Feb 03, 2024 09:59 JHON COLLISN MD Feb 03, 2024 20:35
[2024-02-03] MEDS ORDERED: AZITTAB PO (11:31)
[2024-02-03] MEDS ORDERED: PRED20TA2 PO (11:31)
[2024-02-03 14:14] LABS: Lactic Acid w/Reflex 2.4 mmol/L (0.4-2.0)
[2024-02-03] MEDS: HYDROcodone-ACET 5/325MG TAB PO PRN (14:39)
[2024-02-04 01:00] VITALS: BP 139/79; PULSE 77; RESP 18; TEMP 98.5; O2SAT 92
[2024-02-04 04:41] VITALS: BP 106/70; PULSE 62; RESP 17; TEMP 97.8
[2024-02-04 07:06] VITALS: PULSE 81; RESP 16; O2SAT 97
[2024-02-04 07:12] VITALS: PULSE 75; RESP 16; O2SAT 98
[2024-02-04 08:10] VITALS: PULSE 72; RESP 18; O2SAT 96
[2024-02-04 09:00] VITALS: BP 122/73; PULSE 65; RESP 18; TEMP 98.1; O2SAT 99
--- NOTE | 2024-02-04 09:46 | DVHPNRES ---
Progress Note Date Seen: Feb 04, 2024 Resident Creating Document: NIRALI CLARK RESIDENT Has the PT tested + for MRSA If YES, has PT been informed?: Yes Medical Necessity Reason Pt with a Central, PICC or Fol: No Subjective Review of Systems 68-year old male patient with significant past medical history of asthma, h ypertension, COPD, chronic bronchitis, myocardial infarction, pulmonary embolism, peripheral effusion, stroke with right-sided deficits and lung cancer status post lobectomy, and inguinal hernia for which surgery was laid after missing his surgical appointment. The patient reports shortness of breaths for the past week . He uses 2 L of supplemental oxygen during the day and night. He was recently treated with methylprednisolone ceftriaxone, azithromycin for possible pneumonia and urinary tract infection based on recent urinalysis, blood glucose levels were noted to be elevated and 212 but may be caused by recent steroid use. Chest x-ray showed small right sided pleural effusion and normal EKG, the last echocardiogram was taken on March of this year and was 60% ejection fraction. Patient was examined at bedside, he reports feeling better without new complaints, patient is waiting for transportation to taken to the SNF to continue physical therapy. Review of systems Constitutional: No: Fever, Chills, Sweats, Weakness, Malaise, Other Eyes: No: Pain, Vision change, Conjunctivae inflammation, Eyelid inflammation, Other, Redness ENT: No: Ear pain, Ear discharge, Nose pain, Nose discharge, Nose congestion, Mouth pain, Mouth swelling, Throat pain, Throat swelling, Other Respiratory: No Wheezing, Hemoptysis, Pleuritic Pain, Sputum, Wheezing, Other Cardiovascular: No: Chest Pain, Palpitations, Orthopnea, Paroxysmal Noc. Dyspnea, Edema, Lt Headedness, Other Gastrointestinal: No: Nausea, Vomiting, Abdominal Pain, Diarrhea, Constipation, Melena, Hematochezia, Other Musculoskeletal: No: other, neck pain, shoulder pain, arm pain, back pain, hand pain, leg pain, foot pain Neurological:; No: Weakness, Numbness, Incoordination, Change in speech, Confusion, Seizures Patient reports: Feels better Changes from previous H/P or p: Changes Objective vital signs Vital Sign Date Time Temp Pulse Resp B/P (MAP) Pulse Ox O2 Delivery O2 Flow Rate FiO2 02/04/24 09:00 98.1 65 18 122/73 (89) 99 98.1 02/04/24 08:10 Nasal Cannula* 2 28 Total Intake and Output 02/03/24 02/03/24 02/04/24 15:00 23:00 07:00 Intake Total 300 ml 1800 ml 1440 ml Output Total 1200 ml 300 ml Balance 300 ml 600 ml 1140 ml Examination: GENERAL:Normal, HEENT:Normal, NECK:Normal, LUNGS:Normal, CVS:Normal, ABDOMEN:Normal, MSK:Normal, SKIN:Normal, NEURO:Normal, :Normal laboratory and microbiology Laboratory Tests 02/02/24 07:16 Test 02/02/24 07:16 Range/Units Serum Glucose 145 H 74-106 mg/dL Microbiology Date/Time Source Procedure Growth Status 02/01/24 10:30 Voided Urine Urine Culture - Final Complete 02/01/24 03:30 Nose MRSA Screen - Final Complete Problem List/Assessment/Plan Problem List/Assessment/Plan #Acute respiratory failure due to Acute on chronic COPD exacerbation -Methylprednisolone 40 mg b.i.d. IV -Ipratropium bromide 0.5 mg neb -Albuterol q.6 neb -currently on room air #Sepsis likely due to urinary tract infection ? pneumonia , resolved #Lactic acidosis,resolved -ceftriaxone IV -Azithromycin IV #essential Hypertension -continue home meds #inguinal hernia -Follow up in the outpatient #Hx of CVA -continue home meds -monitor #History of Asthma #Bronchitis #history of Lung cancer status post surgical resection #Pleural effusions -continue home meds #Hx of PR -monitor #Hx of PE -CTA chest Was negative for pulmonary embolism -continue home meds -Continue apixaban Case discussed with Dr. Diop goals of care discussed with the patient for 38 minutes Code status: Full code1 Plan discussed with: Patient My Orders My Orders Orders - NIRALI CLARK Procedure Category Date Status Time * Continuous Miner Operator CONS 02/03/24 Transmitted Consult Discharge DISCHARGE 02/03/24 Transmitted 09:53 Date of Service: Feb 04, 2024 Billing Provider: JHON COLLINS MD Common Visit Codes: [id number] INP/OBS CARE(HIGH) NIRALI CLARK RESIDENT Feb 04, 2024 09:45 JHON COLLINS MD Feb 04, 2024 22:50
== END 2024-02-04 09:26 | DRG 720 ==
LOC: ER 08:51 → EDBD 08:51 → TELE 13:27 → TELE-WESTW 21:36
PROVIDERS: ADMIT Internal Medicine Geriatric Medicine; ATTEND Internal Medicine Geriatric Medicine
DX: A41.9 Sepsis, unspecified organism (principal); J96.00 Acute respiratory failure, unspecified whether with hypoxia or hypercapnia; E87.20 Acidosis, unspecified; J18.9 Pneumonia, unspecified organism; J44.0 Chronic obstructive pulmonary disease with (acute) lower respiratory infection; J90 Pleural effusion, not elsewhere classified; J44.1 Chronic obstructive pulmonary disease with (acute) exacerbation; J45.901 Unspecified asthma with (acute) exacerbation; Z99.81 Dependence on supplemental oxygen; Z20.822 Contact with and (suspected) exposure to COVID-19; K40.90 Unilateral inguinal hernia, without obstruction or gangrene, not specified as recurrent; N39.0 Urinary tract infection, site not specified; I10 Essential (primary) hypertension; F17.210 Nicotine dependence, cigarettes, uncomplicated; Z85.118 Personal history of other malignant neoplasm of bronchus and lung; I69.398 Other sequelae of cerebral infarction; Z86.711 Personal history of pulmonary embolism; I25.2 Old myocardial infarction
CPT/HCPCS: 36415; 71045; 71275; 80048; 80053; 80307; 81001; 82962; 83605; 83615; 83880; 84154; 84443; 84484; 85007; 85025; 85027; 85379; 85610; 86141; 87081; 87086; 87426; 87804; 93005; 93306; 94640; 97110; 97116; 97163; G0378

== ENCOUNTER 2024-03-04 03:22 | Inpatient (IN) | payer MEDICARE, MEDICAID ==
[~2024-03-04] VITALS: Ht 165.1 cm; Wt 69.5 kg
[2024-03-04] VITALS (11 sets, daily range): BP systolic 117–131; BP diastolic 56–76; PULSE 77–96; RESP 14–20; TEMP 98–98.2; O2SAT 96–100
[~2024-03-04 03:22] MED LIST changes: +AZITTAB PO
--- NOTE | 2024-03-04 03:33 | ED.PDOC ---
SOB-HPI HPI Comments 68-year-old male came to the emergency room via EMS due to shortness a breath. Patient has history of hypertension, asthma, COPD on home oxygen at 4 liters/minute. About 45 minutes ago, patient woke up from sleep, feeling short of breath and wheezy. Denies any cough or acute chest pains. Was saturating 94% room air. Patient was given albuterol and Atrovent nebulization while on the way to the ER Chief Complaint: Shortness of breath Time Seen by MD: 03:32 Primary Care Provider: UNKNOWN Reviewed notes: Nurses Notes Information Source: Patient, Emergency Med Personnel Mode of Arrival: EMS Severity: Moderate Timing: Minutes Duration: Since onset Context: At Rest PE Risk Factors: None History of: Asthma, COPD Prehospital treatment: Breathing Tx, Oxygen Modifying Factors: Nothing Associated Signs and Symptoms: Wheeze Past Medical History PAST MEDICAL HISTORY: Asthma, Cancer, COPD, CVA, HTN, [place], PE Surgical History: Denies all surgeries Family History Family History: Reviewed,noncontributory to illness, Family hx of Cancer Social History Smoker: Cigarettes Alcohol: Denies ETOH Use Drugs: Denies Drug Use Lives In: Home Constitutional: denies: chills, diaphoresis, fatigue, fever, malaise, sweats, weakness, others EENTM: denies: blurred vision, double vision, ear bleeding, ear discharge, ear drainage, ear pain, ear ringing, eye pain, eye redness, hearing loss, mouth pain, mouth swelling, nasal discharge, nose bleeding, nose congestion, nose pain, photophobia, tearing, throat pain, throat swelling, voice changes, others Respiratory: reports: SOB at rest, shortness of breath, wheezing; denies: cough, hemoptysis, orthopnea, SOB with excertion, stridor, others Cardiovascular: denies: chest pain, dizzy spells, diaphoresis, Dyspnea on exertion, edema, irregular heart beat, left arm pain, lightheadedness, palpitations, PND, syncope, others Gastrointestinal: denies: abdomen distended, abdominal pain, blood streaked bowels, constipated, diarrhea, dysphagia, difficulty swallowing, hematemesis, melena, nausea, poor appetite, poor fluid intake, rectal bleeding, rectal pain, vomiting, others Genitourinary: denies: burning, dysuria, flank pain, frequency, hematuria, incontinence, penile discharge, penile sore, pain, testicle pain, testicle swelling, urgency, others Neurological: denies: dizziness, fainting, headache, left sided numbness, left sided weakness, numbness, paresthesia, pre-existing deficit, right sided numbness, right sided weakness, seizure, speech problems, tingling, tremors, weakness, others Musculoskeletal: denies: back pain, gout, joint pain, joint swelling, muscle pain, muscle stiffness, neck pain, others Integumetry: denies: bruises, change in color, change in hair/nails, dryness, laceration, lesions, lumps, rash, wounds, others Allergic/Immunocompromised: denies: Difficulty Healing, Frequent Infections, Hives, Itching, others Hematologic/Lymphatic: denies: anemia, blood clots, easy bleeding, easy bruising, swollen glands, others Endocrine: denies: excessive hunger, excessive sweating, excessive thirst, excessive urination, flushing, intolerance to cold, intolerance to heat, unexplained weight gain, unexplained weight loss, others Psychiatric: denies: anxiety, bipolar disorder, depression, hopeless, panic disorder, schizophrenia, sleepless, suicidal, others Physical Exam General Appearance: No Apparent Distress, Normal HEENT: Normal ENT Inspection, Pharynx Normal, TMs Normal Neck: Full Range of Motion, Non-Tender, Normal, Normal Inspection Respiratory: Chest Non-Tender, No Accessory Muscle Use, Respiratory Distress, Wheezing Cardiovascular: No Edema, No JVD, No Murmur, No Gallop, Normal Peripheral Pulses, Regular Rate/Rhythm Breast Exam: Deferred Gastrointestinal: No Organomegaly, Non Tender, No Pulsatile Mass, Normal Bowel Sounds, Soft Genitalia: Deferred Pelvic: Deferred Rectal: Deferred Extremities: No calf tenderness, Normal capillary refill, Normal inspection, Normal range of motion, Non-tender, No pedal edema Musculoskeletal : Apperance: Normal Neurologic: Alert, clinical document improvement educator II-XII nml as Tested, No Motor Deficits, Normal Affect, Normal Mood, No Sensory Deficits Cerebellar Function: Normal Reflexes: Normal Skin: Dry, Normal Color, Warm Lymphatic: No Adenopathy Was a procedure done? Was a procedure done?: No Differential Dx Differential Diagnosis: Asthma, CHF, COPD, Myocardial infarction, Panic Attack, Pneumonia, Respiratory Distress X-Ray, Labs, Meds, VS Vital Signs Date Time Temp Pulse Resp B/P (MAP) Pulse Ox O2 Delivery O2 Flow Rate FiO2 03/04/24 04:11 24 98 Nasal Cannula* 2 28 03/04/24 04:00 85 03/04/24 03:45 82 18 100 Nasal Cannula* 2 28 03/04/24 03:45 97.5 85 19 133/79 (97) 99 97.5 03/04/24 03:22 79 03/04/24 03:22 98.2 79 18 143/81 (101) 100 Lab Test 03/04/24 03:35 Range/Units White Blood Count 7.7 4.4-10.8 10^3/uL Red Blood Count 5.08 4.5-5.90 10^6/uL Hemoglobin 13.8 13.5-17.5 g/dL Hematocrit 43.2 41.0-53.0 % Mean Corpuscular Volume 85.0 80.0-100.0 fL Mean Corpuscular Hemoglobin 27.2 L 28.0-32.0 pg Mean Corpuscular Hemoglobin Concent 32.0 32.0-36.0 g/dL Red Cell Distribution Width 18.9 H 11.8-14.3 % Platelet Count 340 140-450 10^3/uL Mean Platelet Volume 7.4 6.9-10.8 fL Neutrophils (%) (Auto) 60.6 37.0-80.0 % Lymphocytes (%) (Auto) 21.9 10.0-50.0 % Monocytes (%) (Auto) 11.4 0.0-12.0 % Eosinophils (%) (Auto) 5.2 0.0-7.0 % Basophils (%) (Auto) 0.9 0.0-2.0 % Neutrophils # (Auto) 4.7 1.6-8.6 10 ^3/uL Lymphocytes # (Auto) 1.7 0.4-5.4 10 ^3/uL Monocytes # (Auto) 0.9 0-1.3 10 ^3/uL Eosinophils # (Auto) 0.4 0-0.8 10 ^3/uL Basophils # (Auto) 0.1 0-0.2 10 ^3/uL Nucleated Red Blood Cells 0.4 % Sodium Level 143 136-145 mmol/L Potassium Level 4.3 3.5-5.1 mmol/L Chloride Level 109 H 98-107 mmol/L Carbon Dioxide Level 27 20-31 mmol/L Anion Gap 7 5-15 Blood Urea Nitrogen 13 9-23 mg/dL Creatinine 1.09 0.700-1.30 mg/dL Glomerular Filtration Rate Calc 74 >90 mL/min BUN/Creatinine Ratio 11.9 10.0-20.0 Serum Glucose 108 H 74-106 mg/dL Calcium Level 10.4 8.7-10.4 mg/dL Troponin I High Sensitivity 4 </=54 ng/L Current Medications Medications (Trade) Dose Ordered Sig/Arnaldo Route Start Time Stop Time Status Last Admin Azithromycin (Zithromax Tablet) 500 mg ONCE ONCE PO 03/04/24 03:30 03/04/24 03:31 DC 03/04/24 04:04 Albuterol (Ventolin Medneb) 5 mg ONCE ONCE NEB 03/04/24 03:30 03/04/24 03:31 DC 03/04/24 04:10 Ipratropium [place] (Atrovent Medneb) 0.5 mg ONCE ONCE NEB 03/04/24 03:30 03/04/24 03:31 DC 03/04/24 04:10 Methylprednisolone Sodium Succinate (Solu Medrol) 62.5 mg ONCE ONCE IV 03/04/24 03:30 03/04/24 03:31 DC 03/04/24 03:42 Time of 1ST Reevaluation: 03:29 Reevaluation 1ST: Unchanged Patient Education/Counseling: Diagnosis, Treatment Family Education/Counseling: No Family Present Departure 1 Departure Time of Disposition: 05:32 (Patient presented with acute shortness of breath concerning for acute on chronic COPD Exacerbation, Pneumonia, ACS, CHF, Pneumothorax. Less likely PE, Dissection. Data: 1. I ordered and reviewed the result of at least 3 labs including a CBC, BMP, and Troponin. 2. I independently interpreted the following tests: Chest X-ray shows .Risk:This patient has a high risk of morbidity due to further diagnostic testing or treatment and may suffer from respiratory or cardiac etiology . Workup reveals a likely COPD Exacerbation and patient should be admitted for further workup. and possible expert consultation.) Impression: Primary Impression: COPD with acute exacerbation Additional Impression: SOB (shortness of breath) Disposition: ADMITTED INPATIENT Admit to: Med Surg Condition: Serious Critical Care Note Critical Care Time?: Yes (35 min-critical care time only) Critical care comment: Shortness of breath Authorized and Performed by: Sunitha Mcgowan MD Total critical care time: Approximately 38 minutes Due to a high probability of clinically significant, life threatening deterioration, the patient required my highest level of preparedness to intervene emergently and I personally spent this critical care time directly and personally managing the patient. This critical care time included obtaining a history; examining the patient; pulse oximetry; ordering and review of studies; arranging urgent treatment with development of a management plan; evaluation of patient's response to treatment; frequent reassessment; and, discussions with other providers. This critical care time was performed to assess and manage the high probability of imminent, life-threatening deterioration that could result in multi-organ failure. It was exclusive of separately billable procedures and treating other patients and teaching time. Please see my other sections and the rest of the note for further information on patient assessment and treatment. Stability Stability form required: No Heart Score Heart Score: Heart Score Response (Comments) Value History N/A 0 EKG N/A 0 Age N/A 0 Risk Factors N/A 0 Troponin N/A 0 Total 0 I personally scribed for SUNITHA MCGOWAN MD ([email or web address]) on 03/04/24 at 03:33. Electronically submitted by Nas Patton ([facility]). SUNITHA MCGOWAN MD Mar 04, 2024 03:33
[2024-03-04] MEDS: methylPREDNISolone SOD SUCC 125 MG/2 ML VL IV ONE (03:42)
[2024-03-04 04:02] LABS: Basophils # (auto) 0.1 10 ^3/uL (0-0.2); Basophils % (auto) 0.9 % (0.0-2.0); Eosinophils # (auto) 0.4 10 ^3/uL (0-0.8); Eosinophils % (auto) 5.2 % (0.0-7.0); Hematocrit 43.2 % (41.0-53.0); Hemoglobin 13.8 g/dL (13.5-17.5); Lymphocytes # (auto) 1.7 10 ^3/uL (0.4-5.4); Lymphocytes % (auto) 21.9 % (10.0-50.0); Mean Corpuscular Hemoglobin 27.2 pg (28.0-32.0); Monocytes # (auto) 0.9 10 ^3/uL (0-1.3); Monocytes % (auto) 11.4 % (0.0-12.0); Neutrophils # (auto) 4.7 10 ^3/uL (1.6-8.6); Neutrophils % (auto) 60.6 % (37.0-80.0); Nucleated Red Blood Cells % 0.4 %; Platelet Count (auto) 340 10^3/uL (140-450); Red Blood Cells 5.08 10^6/uL (4.5-5.90); Red Cell Distribution Width 18.9 % (11.8-14.3); White Blood Cell 7.7 10^3/uL (4.4-10.8)
[2024-03-04] MEDS: AZITHROMYCIN 250 MG TAB PO ONE (04:04)
[2024-03-04] MEDS: ALBUTEROL SULF 2.5 MG/0.5ML(0.5%) NEB SOLN NEB ONE (04:10)
[2024-03-04] MEDS: IPRATROPIUM BROM 0.5 MG/2.5ML INH SOL NEB ONE (04:10)
[2024-03-04 04:29] LABS: Potassium 4.3 mmol/L (3.5-5.1); Sodium 143 mmol/L (136-145)
[2024-03-04 04:30] LABS: Anion Gap 7 (5-15); Calcium 10.4 mg/dL (8.7-10.4); Carbon Dioxide 27 mmol/L (20-31); Chloride 109 mmol/L (98-107)
[2024-03-04 04:35] LABS: BUN/Creatinine Ratio 11.9 (10.0-20.0); Blood Urea Nitrogen 13 mg/dL (9-23)
[2024-03-04 04:37] LABS: Glucose 108 mg/dL (74-106)
--- NOTE | 2024-03-04 04:53 | DVH ---
CHEST RADIOGRAPH Indication: sob Technique: Single frontal view of the chest was obtained Comparison: XY CHEST PORTABLE on DOS: 01/31/24, XY CHEST PORTABLE on DOS: 11/28/23, XY CHEST XRAY 1 V IEW on DOS: 11/25/23 IMPRESSION: The heart appears stable in size. There is mild vascular congestion. Trace small right pleural effus ion with chronic blunting of the right costophrenic angle. No new focal airspace opacity or pneumotho rax.
[2024-03-04] MEDS: cefTRIAXone 1GM/50ML D5W 50 ML IV ONE (07:00)
[2024-03-04] MEDS ORDERED: AZITHROMYCIN 500MG/ 250ML 250 ML IV ONE (07:00)
[2024-03-04] MEDS ORDERED: ONDANSETRON HCL 4 MG/2 ML VIAL IV PRN (07:00)
[2024-03-04] MEDS ORDERED: HYDROcodone-ACET 5/325MG TAB PO PRN (07:00)
[2024-03-04] MEDS ORDERED: ACETAMINOPHEN 325 MG TAB PO PRN (07:00)
--- NOTE | 2024-03-04 07:12 | ECG ---
[facility] Test Date: 2024-03-04 Test Time: 03:22:36 Pat Name: KAISER BARRERA Department: ER Room: 0287T Gender: M Excellence Consultant: ER : 1955 Requested By: SUNITHA ROMO Order Number: [id number] Reading MD: Bryan Canela Measurements Intervals [place] Rate: 79 P: 84 WV: 164 QRS: 20 QRSD: 84 T: 92 QT: 408 QTc: 468 Interpretive Statements Sinus rhythm Borderline low voltage, extremity leads Nonspecific T abnormalities, lateral leads ST elevation, consider inferior injury Baseline wander in lead(s) V1 Electronically Signed On 03-05-2024 16:04:40 PST by Bryan Canela Please click the below link to view image of tracing.
--- NOTE | 2024-03-04 07:13 | DVHHP2 ---
History of Present Illness Reason for Visit: SOB History of Present Illness Brandon Gentile is a 68-year-old male with past medical history of hypertension, COPD, asthma, bronchitis, CVA with right-sided deficits, lung cancer with left lobectomy, [place], PE greater than 1 year ago, right patellar dislocation and surgery, and hernia who presents to the ED with shortness of breath x1 day. Patient reports that he was asleep and suddenly woke up with leola rtness of breath. He reports that he takes breathing treatments twice a day. He states that there are no triggering factors however alleviating factors are taking breathing treatments. Patient also reports that he is on 2 L nasal cannula of oxygen on and off at home. Patient also reports that he was sick recently with a cold but denies recent sick contacts. Patient denies any chest pain, wheezing, fever, chills, abdominal pain, nausea, vomiting, diarrhea, lightheadedness, and dizziness. Cardiovascular: HTN, [place] Pulmonary: Asthma, Bronchitis, COPD [employer]AR[employer]TER: CVA Past Medical History Lung cancer Right patella dislocation Past Surgical History: Other (Left lobectomy and right patella surgery) Family History: Cancer, Other (Mom with unknown cancer and dad with colon cancer) Smoke: Quit ALCOHOL: none Drugs: None Lives: with Family Domestic Violence: Neg Review of Systems Constitutional: No: Fever, Chills, Sweats, Weakness, Malaise, Other Eyes: No: Pain, Vision change, Conjunctivae inflammation, Eyelid inflammation, Other, Redness ENT: No: Ear pain, Ear discharge, Nose pain, Nose discharge, Nose congestion, Mouth pain, Mouth swelling, Throat pain, Throat swelling, Other Respiratory: Shortness of breath; No: Cough, Dry, SOB with excertion, Wheezing, Hemoptysis, Pleuritic Pain, Sputum, Wheezing, Other Cardiovascular: No: Chest Pain, Palpitations, Orthopnea, Paroxysmal Noc. Dyspnea, Edema, Lt Headedness, Other Gastrointestinal: No: Nausea, Vomiting, Abdominal Pain, Diarrhea, Constipation, Melena, Hematochezia, Other Genitourinary: No Dysuria, No Frequency, No Incontinence, No Hematuria, No Retention, No Other Musculoskeletal: No: other, neck pain, shoulder pain, arm pain, back pain, hand pain, leg pain, foot pain Skin: No: Rash, Lesions, Jaundice, Bruising, Other Neurological: Weakness, Other (CVA, right-sided deficit); No: Numbness, Incoordination, Change in speech, Confusion, Seizures Allergies: Coded Allergies: NO KNOWN ALLERGIES (Unverified , 03/24/22) Medications Current Medications Medications Dose Ordered Sig/Arnaldo Route Start Time Stop Time Status Last Admin Dose Admin Albuterol 2.5 mg Q6HWA NEB 03/04/24 12:00 Albuterol 2.5 mg Q4HPRN PRN NEB 03/04/24 07:00 Ipratropium [place] 0.5 mg Q6HWA [facility] 03/04/24 12:00 Ipratropium [place] 0.5 mg Q4HPRN PRN [facility] 03/04/24 07:00 Budesonide 0.5 mg BID [facility] 03/04/24 10:00 Ceftriaxone Sodium 50 ml @ 100 mls/hr DAILY@09 IV 03/05/24 09:00 Azithromycin 250 ml @ 125 mls/hr DAILY IV 03/05/24 10:00 Exam Vital Signs Vital Signs Date Time Temp Pulse Resp B/P (MAP) Pulse Ox O2 Delivery O2 Flow Rate FiO2 03/04/24 06:00 79 15 135/66 (89) 98 03/04/24 04:11 Nasal Cannula* 2 28 03/04/24 03:45 97.5 97.5 General Appearance: Alert, Oriented X3, Cooperative, mild distress HEENT: Atraumatic, PERRLA, EOMI, Mucous membr. moist/pink Respiratory: Normal air movement Cardiovascular: Regular rate, Normal S1, Normal S2, No murmurs Abdominal: Normal bowel sounds, Soft, No tenderness, No hepatospenomegaly, No m asses Extremities: No clubbing, No cyanosis, No edema, Normal pulses, No tenderness/swelling Skin: No rashes, No breakdown, No significant lesion Neuro: Normal speech, Strength at 5/5 X4 ext, Normal tone, Sensation intact, Other (Uses cane, history of right-sided deficits CVA) Psych/Mental Status: Mental status NL, Mood NL Labs/Xrays Labs Test 03/04/24 03:35 Range/Units White Blood Count 7.7 4.4-10.8 10^3/uL Red Blood Count 5.08 4.5-5.90 10^6/uL Hemoglobin 13.8 13.5-17.5 g/dL Hematocrit 43.2 41.0-53.0 % Mean Corpuscular Volume 85.0 80.0-100.0 fL Mean Corpuscular Hemoglobin 27.2 L 28.0-32.0 pg Mean Corpuscular Hemoglobin Concent 32.0 32.0-36.0 g/dL Red Cell Distribution Width 18.9 H 11.8-14.3 % Platelet Count 340 140-450 10^3/uL Mean Platelet Volume 7.4 6.9-10.8 fL Neutrophils (%) (Auto) 60.6 37.0-80.0 % Lymphocytes (%) (Auto) 21.9 10.0-50.0 % Monocytes (%) (Auto) 11.4 0.0-12.0 % Eosinophils (%) (Auto) 5.2 0.0-7.0 % Basophils (%) (Auto) 0.9 0.0-2.0 % Neutrophils # (Auto) 4.7 1.6-8.6 10 ^3/uL Lymphocytes # (Auto) 1.7 0.4-5.4 10 ^3/uL Monocytes # (Auto) 0.9 0-1.3 10 ^3/uL Eosinophils # (Auto) 0.4 0-0.8 10 ^3/uL Basophils # (Auto) 0.1 0-0.2 10 ^3/uL Nucleated Red Blood Cells 0.4 % Sodium Level 143 136-145 mmol/L Potassium Level 4.3 3.5-5.1 mmol/L Chloride Level 109 H 98-107 mmol/L Carbon Dioxide Level 27 20-31 mmol/L Anion Gap 7 5-15 Blood Urea Nitrogen 13 9-23 mg/dL Creatinine 1.09 0.700-1.30 mg/dL Glomerular Filtration Rate Calc 74 >90 mL/min BUN/Creatinine Ratio 11.9 10.0-20.0 Serum Glucose 108 H 74-106 mg/dL Calcium Level 10.4 8.7-10.4 mg/dL Troponin I High Sensitivity 4 </=54 ng/L CHEST RADIOGRAPH Indication: sob Technique: Single frontal view of the chest was obtained Comparison: XY CHEST PORTABLE on DOS: 01/31/24, XY CHEST PORTABLE on DOS: 11/28/23, XY CHEST XRAY 1 VIEW on DOS: 10/10/24 IMPRESSION: The heart appears stable in size. There is mild vascular congestion. Trace small right pleural effusion with chronic blunting of the right costophrenic angle. No new focal airspace opacity or pneumothorax. Assessment/Plan Assessment/Plan Assessment/Plan: Acute on chronic COPD exacerbation likely secondary to PNA History of lung cancer with left lobectomy History of bronchitis History of asthma Labs A.m. labs IV steroids Breathing treatments IV antibiotics-ceftriaxone+ azithromycin EKG Troponin negative Chest x-ray Flu test COVID test UA Last echo on 02/01/2024 EF 55% Famotidine Nicotine patch Budesonide Oxygen dependent uses 2 L nasal cannula on and off at home Chronic hypertension Continue home medications History of CVA with right-sided deficits Monitor History of PE greater than 1 year ago On Eliquis History of [place] Monitor History of right patella dislocation and surgery Monitor History of hernia Follow up outpatient with PCP Ex tobacco use Nicotine patch offered FEN/PPX diet Hep-Lock DVT ppx -continue on home medication, Eliquis PUD ppx -famotidine, given with steroids Discussed plan of care with patient and nurse Home medications reconciled Admit to telemetry Plan discussed with: Patient My Orders Orders - UZAIR SIMMONS 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 Procedure Category Date Status Time Urinalysis LAB 03/04/24 Logged 06:47 Albuterol Medneb PHA 03/04/24 In Process (Ventolin Medneb) 12:00 Albuterol Medneb PHA 03/04/24 In Process (Ventolin Medneb) 07:00 Ipratropium Medneb PHA 03/04/24 In Process (Atrovent Medneb) 12:00 Ipratropium Medneb PHA 03/04/24 In Process (Atrovent Medneb) 07:00 Budesonide PHA 03/04/24 In Process (Inhalation) 10:00 Ceftriaxone 1gm/50ml PHA 03/04/24 In Process D5w (Rocephin) 07:00 Azithromycin 500mg/ PHA 03/04/24 Pending 250ml (Zithromax 50 07:00 Rapid Influenza A&B LAB 03/04/24 Logged 06:51 Covid19 Antigen Freda LAB 03/04/24 Logged Ceftriaxone 1gm/50ml PHA 03/05/24 In Process D5w (Rocephin) 09:00 Azithromycin 500mg/ PHA 03/05/24 In Process 250ml (Zithromax 50 10:00 Methylprednisolone PHA 03/04/24 Transmitted Sod Succ (Solu Medrol 14:00 Famotidine Injection PHA 03/04/24 Transmitted (Pepcid Injection) 10:00 Admit ADMIT 03/04/24 Transmitted 06:52 Allergies LINDSAY 03/04/24 Transmitted 06:52 Code Status CODE 03/04/24 Transmitted 06:52 Hydrocodone-Acet PHA 03/04/24 Transmitted 5/325mg Tab ([place] 07:00 Ondansetron Hcl PHA 03/04/24 Transmitted (Zofran) 07:00 Complete Blood Count LAB 03/05/24 Verified 04:00 Comprehensive LAB 03/05/24 Verified Metabolic Panel 04:00 Cardiac DIET 03/04/24 Transmitted Diet-2gna,Lofat,Lochol Breakfast Acetaminophen Tablet PHA 03/04/24 Transmitted (Tylenol Tablet) 07:00 Nicotine 7mg/24hr PHA 03/04/24 Verified (Nicoderm 7mg/24hr) 10:00 Date of Service: Mar 04, 2024 Billing Provider: UZAIR SIMMONS Common Visit Codes: [id number] INP/OBS CARE (HIGH) UZAIR SIMMONS Mar 04, 2024 07:13
[2024-03-04 09:12] LABS: COVID19 ANTIGEN SOFIA FIA NEGATIVE (NEGATIVE); Rapid Influenza A Negative (Negative); Rapid Influenza B Negative (Negative)
[2024-03-04] MEDS: FAMOTIDINE (10MG/ML) 2ML VL IV SCH (10:16)
[2024-03-04] MEDS: APIXABAN 5 MG TAB PO SCH (10:16)
[2024-03-04] MEDS: MEMANTINE HCL 5 MG TAB PO SCH (10:17)
[2024-03-04] MEDS: amLODIPine BESYLATE 5 MG TAB PO SCH (10:18)
[2024-03-04] MEDS: NICOTINE 7MG/24HR TOPICAL PATCH TD SCH (11:47)
[2024-03-04] MEDS: BUDESONIDE (INHALATION) 0.5 MG/2 ML NEB NEB SCH (11:54)
[2024-03-04] MEDS: ALBUTEROL SULF 2.5 MG/0.5ML(0.5%) NEB SOLN NEB SCH (11:54)
[2024-03-04] MEDS: IPRATROPIUM BROM 0.5 MG/2.5ML INH SOL NEB SCH (11:54)
[2024-03-04] MEDS: methylPREDNISolone SOD SUCC 40 MG/ML VL IV SCH (14:38)
[2024-03-05] VITALS (15 sets, daily range): BP systolic 102–129; BP diastolic 47–73; PULSE 76–98; RESP 17–20; TEMP 98–98.4; O2SAT 94–100
[2024-03-05] MEDS: ALBUTEROL SULF 2.5 MG/0.5ML(0.5%) NEB SOLN NEB PRN (01:09)
[2024-03-05] MEDS: IPRATROPIUM BROM 0.5 MG/2.5ML INH SOL NEB PRN (01:09)
[2024-03-05 06:05] LABS: Basophils # (auto) 0 10 ^3/uL (0-0.2); Eosinophils # (auto) 0 10 ^3/uL (0-0.8); Lymphocytes # (auto) 0.8 10 ^3/uL (0.4-5.4); Monocytes # (auto) 0.3 10 ^3/uL (0-1.3); White Blood Cell 10.6 10^3/uL (4.4-10.8)
[2024-03-05 06:08] LABS: Basophils % (auto) 0.2 % (0.0-2.0); Hematocrit 39.3 % (41.0-53.0); Hemoglobin 13.1 g/dL (13.5-17.5); Lymphocytes % (auto) 7.8 % (10.0-50.0); Mean Corpuscular Hemoglobin 27.8 pg (28.0-32.0); Mean Corpuscular Hgb Conc. 33.2 g/dL (32.0-36.0); Mean Corpuscular Volume 83.6 fL (80.0-100.0); Monocytes % (auto) 2.6 % (0.0-12.0); Neutrophils # (auto) 9.5 10 ^3/uL (1.6-8.6); Neutrophils % (auto) 89.4 % (37.0-80.0); Platelet Count (auto) 312 10^3/uL (140-450); Red Cell Distribution Width 18.3 % (11.8-14.3)
[2024-03-05 06:27] LABS: Alanine Aminotransferase 28 U/L (7-40); Anion Gap 8 (5-15); Aspartate Aminotransferase 14 U/L (13-40); BUN/Creatinine Ratio 15.3 (10.0-20.0); Blood Urea Nitrogen 15 mg/dL (9-23); Calcium 9.7 mg/dL (8.7-10.4); Carbon Dioxide 24 mmol/L (20-31); Potassium 4.5 mmol/L (3.5-5.1); Sodium 142 mmol/L (136-145)
[2024-03-05 06:28] LABS: Bilirubin, Total 0.3 mg/dL (0.2-1.0); Total Protein 6.2 g/dL (5.7-8.2)
[2024-03-05 06:35] LABS: Alkaline Phosphatase 130 U/L (46-116); Chloride 110 mmol/L (98-107); Glucose 142 mg/dL (74-106)
[2024-03-05 06:51] LABS: Albumin 3.9 g/dL (3.2-4.8)
[2024-03-05] MEDS: cefTRIAXone 1GM/50ML D5W 50 ML IV SCH (11:45)
--- NOTE | 2024-03-05 13:47 | DVHPN2 ---
Subjective The patient is seen and examined at bedside. Still complain of shortness for breath. Reviewed: Care Plan, H&P, Labs, Medications, Previous Orders, Radiology Changes from previous H/P or p: No Changes Eyes: No Pain, No Vision change, No Conjunctivae inflammation, No Eyelid inflammation, No Other, No Redness ENT: No Ear pain, No Ear discharge, No Nose pain, No Nose discharge, No Nose congestion, No Mouth pain, No Mouth swelling, No Throat pain, No Throat swelling, No Other Cardiovascular: No Chest Pain, No Palpitations, No Orthopnea, No Paroxysmal Noc. Dyspnea, No Edema, No Lt Headedness, No Other Respiratory: No Cough, No Dry; Shortness of breath; No SOB with excertion, No Wheezing, No Hemoptysis, No Pleuritic Pain, No Sputum, No Other Gastrointestinal: No Nausea, No Vomiting, No Abdominal Pain, No Diarrhea, No Constipation, No Melena, No Hematochezia, No Other Genitourinary: No Dysuria, No Frequency, No Incontinence, No Hematuria, No Retention, No Other Musculoskeletal: No other, No neck pain, No shoulder pain, No arm pain, No back pain, No hand pain, No leg pain, No foot pain Skin: No Rash, No Lesions, No Jaundice, No Bruising, No Other Objective Vitals Vital Signs Date Time Temp Pulse Resp B/P (MAP) Pulse Ox O2 Delivery O2 Flow Rate FiO2 03/05/24 12:19 88 20 100 03/05/24 12:13 Room Air* 0 21 03/05/24 11:31 129/65 03/05/24 09:00 98.2 98.2 Intake/Output Intake and Output 03/05/24 07:00 Intake Total 950 ml Output Total 800 ml Balance 150 ml Intake Oral 950 ml Output Urine Total 800 ml # Voids 1 General Appearance: Alert, Oriented X3, Cooperative, No acute distress HEENT: Atraumatic, PERRLA, EOMI, Mucous membr. moist/pink Neck: Supple Lungs: Clear to auscultation, Normal air movement Cardiovascular: Regular rate, Normal S1, Normal S2, No murmurs, Gallops, Rubs Abdomen: Normal bowel sounds, Soft, No tenderness Neuro: Cranial nerves 3-12 NL Psych/Mental Status: Mental status NL Medications Current Medications Medications Dose Ordered Sig/Arnaldo Route Start Time Stop Time Status Last Admin Dose Admin Albuterol 2.5 mg Q6HWA NEB 03/04/24 12:00 03/05/24 12:12 2.5 MG Albuterol 2.5 mg Q4HPRN PRN NEB 03/04/24 07:00 03/05/24 01:09 2.5 MG Ipratropium [place] 0.5 mg Q6HWA NEB 03/04/24 12:00 03/05/24 12:13 0.5 MG Ipratropium [place] 0.5 mg Q4HPRN PRN NEB 03/04/24 07:00 03/05/24 01:09 0.5 MG Budesonide 0.5 mg BID NEB 03/04/24 10:00 03/05/24 06:30 0.5 MG Ceftriaxone Sodium 50 ml @ 100 mls/hr DAILY@09 IV 03/05/24 09:00 03/05/24 11:45 100 MLS/HR Azithromycin 250 ml @ 125 mls/hr DAILY IV 03/05/24 10:00 Methylprednisolone Sodium Succinate 40 mg Q8HR IV 03/04/24 14:00 03/05/24 06:03 40 MG Famotidine 20 mg DAILY IV 03/04/24 10:00 03/05/24 11:44 20 MG Acetaminophen/ Hydrocodone Bitart 1 tab Q4HP PRN PO 03/04/24 07:00 Ondansetron HCl 4 mg Q4HP PRN IV 03/04/24 07:00 Acetaminophen 650 mg Q6HP PRN PO 03/04/24 07:00 Nicotine 1 patch DAILY TD 03/04/24 10:00 03/05/24 11:29 1 PATCH Apixaban 5 mg BID PO 03/04/24 10:00 03/05/24 11:31 5 MG Amlodipine Besylate 10 mg DAILY PO 03/04/24 10:00 03/05/24 11:31 10 MG Memantine 10 mg BID PO 03/04/24 10:00 03/05/24 11:30 10 MG Laboratory Results Laboratory Tests 03/05/24 05:25 Chemistry Test 03/05/24 05:25 Albumin 3.9 g/dL (3.2-4.8) Calcium Level 9.7 mg/dL (8.7-10.4) Total Protein 6.2 g/dL (5.7-8.2) LFT Test 03/05/24 05:25 Alanine Aminotransferase (ALT) 28 U/L (7-40) Alkaline Phosphatase 130 U/L (46-116) H Aspartate Amino Transferase (AST) 14 U/L (13-40) Total Bilirubin 0.3 mg/dL (0.2-1.0) Labs and/or images reviewed: Labs reviewed by me Assessment/Plan Assessment/Plan Acute on chronic COPD exacerbation likely secondary to PNA History of lung cancer with left lobectomy History of bronchitis History of asthma Chronic hypertension History of CVA with right-sided deficits History of PE greater than 1 year ago History of ID History of right patella dislocation and surgery History of hernia Ex tobacco use Continuing current management. Continuing with Eliquis. Continuing with IV Solu-Medrol. Breathing treatments with DuoNeb q.6 p.r.n. IV antibiotics-ceftriaxone+ azithromycin EKG Troponin negative Chest x-ray Flu test negative COVID test negative UA , we will follow up to see if patient had any urine culture Last echo on 02/01/2024 EF 55% Famotidine Nicotine patch Budesonide Oxygen dependent uses 2 L nasal cannula on and off at home This medical document was created using an electronic medical record system with [employer] direct computerized dictation system. Although this document has been carefully reviewed, there may still be some phonetic and typographical errors. These areas are purely typographical due to imperfections of the software programs, and do not reflect any compromise in the patient's medical care. Plan discussed with: Patient Date of Service: Mar 05, 2024 Billing Provider: JOSE L SHANKS MD Common Visit Codes: [id number] INP/OBS CARE(HIGH) JOSE L SHANKS MD Mar 05, 2024 13:47
[2024-03-05] MEDS: AZITHROMYCIN 500MG/ 250ML 250 ML IV SCH (14:12)
[2024-03-06] VITALS (15 sets, daily range): BP systolic 102–142; BP diastolic 42–71; PULSE 66–94; RESP 14–18; TEMP 97.1–98.3; O2SAT 90–100
[2024-03-06 06:09] LABS: Basophils # (auto) 0 10 ^3/uL (0-0.2); Eosinophils # (auto) 0 10 ^3/uL (0-0.8); Hematocrit 40.8 % (41.0-53.0); Hemoglobin 13.3 g/dL (13.5-17.5); Lymphocytes # (auto) 0.5 10 ^3/uL (0.4-5.4); Lymphocytes % (auto) 3.9 % (10.0-50.0); Mean Corpuscular Hemoglobin 27.1 pg (28.0-32.0); Mean Corpuscular Hgb Conc. 32.6 g/dL (32.0-36.0); Mean Corpuscular Volume 83.2 fL (80.0-100.0); Monocytes # (auto) 0.7 10 ^3/uL (0-1.3); Monocytes % (auto) 5.2 % (0.0-12.0); Neutrophils % (auto) 90.9 % (37.0-80.0); Platelet Count (auto) 367 10^3/uL (140-450); Red Blood Cells 4.91 10^6/uL (4.5-5.90); Red Cell Distribution Width 18.6 % (11.8-14.3); White Blood Cell 13.2 10^3/uL (4.4-10.8)
[2024-03-06 06:27] LABS: Anion Gap 8 (5-15); Carbon Dioxide 24 mmol/L (20-31); Potassium 4.7 mmol/L (3.5-5.1); Sodium 142 mmol/L (136-145)
[2024-03-06 06:28] LABS: Calcium 10.3 mg/dL (8.7-10.4)
[2024-03-06 06:31] LABS: Chloride 110 mmol/L (98-107)
[2024-03-06 06:33] LABS: BUN/Creatinine Ratio 14.2 (10.0-20.0); Blood Urea Nitrogen 17 mg/dL (9-23)
[2024-03-06 06:35] LABS: Glucose 128 mg/dL (74-106)
--- NOTE | 2024-03-06 11:53 | DVHPN2 ---
Progress Note Date Seen: Mar 06, 2024 Medical Necessity Reason Pt with a Central, PICC or Fol: No Subjective Patient reports: No new complaints Review of Systems: HEENT:Normal, CVS:Normal, RESPIRATORY:Normal, GI:Normal, :Normal, MSK:Normal, NEURO:Normal Objective vital signs Vital Sign Date Time Temp Pulse Resp B/P (MAP) Pulse Ox O2 Delivery O2 Flow Rate FiO2 03/06/24 11:47 78 14 100 03/06/24 10:46 112/66 03/06/24 09:00 97.9 97.9 03/06/24 07:02 Nasal Cannula 3.0 03/06/24 07:02 32 Total Intake and Output 03/05/24 03/05/24 03/06/24 15:00 23:00 07:00 Intake Total 800 ml 200 ml Output Total 1250 ml Balance -450 ml 200 ml medications Current Medications Medications Dose Ordered Sig/Arnaldo Route Start Time Stop Time Status Last Admin Dose Admin Albuterol 2.[address] [facility] 03/04/24 12:00 03/06/24 11:39 2.5 MG Albuterol 2.5 mg Q4HPRN PRN [facility] 03/04/24 07:00 03/05/24 01:09 2.5 MG Ipratropium [place] 0.[address] [facility] 03/04/24 12:00 03/06/24 11:39 0.5 MG Ipratropium [place] 0.5 mg Q4HPRN PRN [facility] 03/04/24 07:00 03/05/24 01:09 0.5 MG Budesonide 0.[address] [facility] 03/04/24 10:00 03/06/24 07:00 0.5 MG Ceftriaxone Sodium 50 ml @ 100 mls/hr DAILY@09 IV 03/05/24 09:00 03/06/24 08:53 100 MLS/HR Azithromycin 250 ml @ 125 mls/hr DAILY IV 03/05/24 10:00 03/06/24 11:16 125 MLS/HR Methylprednisolone Sodium Succinate 40 mg Q8HR IV 03/04/24 14:00 03/06/24 06:05 40 MG Famotidine 20 mg DAILY IV 03/04/24 10:00 03/06/24 10:44 20 MG Acetaminophen/ Hydrocodone Bitart 1 tab Q4HP PRN PO 03/04/24 07:00 Ondansetron HCl 4 mg Q4HP PRN IV 03/04/24 07:00 Acetaminophen 650 mg Q6HP PRN PO 03/04/24 07:00 Nicotine 1 patch DAILY TD 03/04/24 10:00 03/06/24 10:46 1 PATCH Apixaban 5 mg BID PO 03/04/24 10:00 03/06/24 10:44 5 MG Amlodipine Besylate 10 mg DAILY PO 03/04/24 10:00 03/06/24 10:46 10 MG Memantine 10 mg BID PO 03/04/24 10:00 03/06/24 10:45 10 MG Examination: GENERAL:Normal, HEENT:Normal, NECK:Normal, LUNGS:Normal, LUNGS:Abnormal (on oxygen), CVS:Normal, ABDOMEN:Normal, MSK:Normal, SKIN:Normal, NEURO:Normal, :Normal laboratory and microbiology Laboratory Tests 03/06/24 05:15 Test 03/06/24 05:15 Range/Units Serum Glucose 128 H 74-106 mg/dL Problem List/Assessment/Plan Problem List/Assessment/Plan #1 acute on chronic resp failure: cont oxygen #2 copd with exacerbation: iv steroids, bronchodilators #3 ?pneumonia- gram positive/neg: iv antibiotics #4 htn #5 h/o pe: on eliquis #6 h/o lung cancer/lobectomy #7 h/o cva #8 pvd says he quit smoking advance care planning- full code- time spent 19 mins Plan discussed with: Patient My Orders My Orders Orders - BETTE CALLOWAY MD Procedure Category Date Status Time Methylprednisolone PHA 03/06/24 Transmitted Sod Succ (Solu Medrol 22:00 Azithromycin Tablet PHA 03/07/24 Transmitted (Zithromax Tablet) 10:00 Famotidine Tablet PHA 03/07/24 Transmitted (Pepcid Tablet) 10:00 Urinalysis LAB 03/06/24 Uncollected 11:46 Basic Metabolic Panel LAB 03/07/24 Verified 06:00 B-Type Natriuretic LAB 03/07/24 Verified Peptide 05:00 Chest Portable XY 03/07/24 Logged 06:00 Discontinue Tele LINDSAY 03/06/24 Verified 11:49 Transfer Orders XFER 03/06/24 Verified 11:49 Date of Service: Mar 06, 2024 Billing Provider: BETTE CALLOWAY MD Common Visit Codes: [id number] INP/OBS CARE(HIGH) Secondary Visit Codes: [id number] CARE PLAN 30 MINUTES BETTE CALLOWAY MD Mar 06, 2024 11:53
[2024-03-06 14:23] LABS: Urine Bacteria None Seen /hpf (None Seen)
[2024-03-06 14:34] LABS: Urine Blood Negative /uL (Negative); Urine Clarity Clear (Clear); Urine Color Light-Yellow (Yellow); Urine Protein, UAD Negative (Negative); Urine Specific Gravity 1.013 (1.001-1.035); Urine Squamous Epithelial Cell None Seen /hpf (<5); Urine Urobilinogen Normal (Negative); Urine WBC <1 /hpf (0 - 3)
[2024-03-06] MEDS: methylPREDNISolone SOD SUCC 40 MG/ML VL IV SCH (22:16)
[2024-03-06 23:54] LABS: Urine Bacteria None Seen /hpf (None Seen); Urine WBC None Seen /hpf (0 - 3)
[2024-03-07] VITALS (12 sets, daily range): BP systolic 114–127; BP diastolic 59–80; PULSE 40–85; RESP 17–18; TEMP 98.1–98.5; O2SAT 91–100
[2024-03-07 00:15] LABS: Urine Blood Negative /uL (Negative); Urine Clarity Clear (Clear); Urine Color Light-Yellow (Yellow); Urine Protein, UAD Negative (Negative); Urine Specific Gravity 1.009 (1.001-1.035); Urine Squamous Epithelial Cell None Seen /hpf (<5); Urine Urobilinogen Normal (Negative)
[2024-03-07 06:45] LABS: Potassium 4.8 mmol/L (3.5-5.1); Sodium 142 mmol/L (136-145)
[2024-03-07 06:46] LABS: Anion Gap 7 (5-15); Calcium 9.6 mg/dL (8.7-10.4); Carbon Dioxide 25 mmol/L (20-31)
[2024-03-07 06:52] LABS: BUN/Creatinine Ratio 14.9 (10.0-20.0); Blood Urea Nitrogen 15 mg/dL (9-23); Chloride 110 mmol/L (98-107); Glucose 180 mg/dL (74-106)
--- NOTE | 2024-03-07 08:49 | DVH ---
CHEST RADIOGRAPH Indication: copd Technique: Single frontal view of the chest was obtained Comparison: XY CHEST PORTABLE on DOS: 03/04/24, XY CHEST PORTABLE on DOS: 01/31/24, XY CHEST PORTABLE on DOS: 11/28/23, XY CHEST XRAY 1 VIEW on DOS: 11/25/23, XY CHEST PORTABLE on DOS: 11/19/23, XY CHEST PORTABLE on DOS: 03/04/24 FINDINGS: The heart appears stable in size. There is mild vascular congestion. Trace small right pleural effus ion with chronic blunting of the right costophrenic angle. No new focal airspace opacity or pneumotho rax. IMPRESSION: No interval change.
[2024-03-07] MEDS: AZITHROMYCIN 250 MG TAB PO SCH (09:33)
[2024-03-07] MEDS: FAMOTIDINE 20 MG TAB PO SCH (09:34)
--- NOTE | 2024-03-07 10:51 | DVHDS2 ---
Discharge Summary Date of Admission Mar 04, 2024 at 06:52 Date of Discharge: Mar 07, 2024 Labs/Diagnostic Data: Laboratory Results Test 03/07/24 05:20 03/06/24 23:30 03/06/24 05:15 03/05/24 05:25 Sodium Level 142 mmol/L (136-145) Potassium Level 4.8 mmol/L (3.5-5.1) Chloride Level 110 mmol/L (98-107) Carbon Dioxide Level 25 mmol/L (20-31) Anion Gap 7 (5-15) Blood Urea Nitrogen 15 mg/dL (9-23) Creatinine 1.01 mg/dL (0.700-1.30) Glomerular Filtration Rate Calc 81 mL/min (>90) BUN/Creatinine Ratio 14.9 (10.0-20.0) Serum Glucose 180 mg/dL (74-106) Calcium Level 9.6 mg/dL (8.7-10.4) B-Type Natriuretic Peptide 64.97 pg/mL (0-100) Urine Color Light-yellow (Yellow) Urine Clarity Clear (Clear) Urine pH 7.0 (5.0-9.0) Urine Specific [place] 1.009 (1.001-1.035) Urine Protein Negative (Negative) Urine Ketones Negative (Negative) Urine Blood Negative /uL (Negative) Urine Nitrite Negative (Negative) Urine Bilirubin Negative (Negative) Urine Urobilinogen Normal mg/dL (Negative) Urine Leukocyte Esterase Negative /uL (Negative) Urine RBC <1 /hpf (0 - 3) Urine WBC None seen /hpf (0 - 3) Urine Squamous Epithelial Cells None seen /hpf (<5) Urine Bacteria None seen /hpf (None Seen) Urine Glucose Normal mg/dL (Normal) White Blood Count 13.2 10^3/uL (4.4-10.8) Red Blood Count 4.91 10^6/uL (4.5-5.90) Hemoglobin 13.3 g/dL (13.5-17.5) Hematocrit 40.8 % (41.0-53.0) Mean Corpuscular Volume 83.2 fL (80.0-100.0) Mean Corpuscular Hemoglobin 27.1 pg (28.0-32.0) Mean Corpuscular Hemoglobin Concent 32.6 g/dL (32.0-36.0) Red Cell Distribution Width 18.6 % (11.8-14.3) Platelet Count 367 10^3/uL (140-450) Mean Platelet Volume 7.7 fL (6.9-10.8) Neutrophils (%) (Auto) 90.9 % (37.0-80.0) Lymphocytes (%) (Auto) 3.9 % (10.0-50.0) Monocytes (%) (Auto) 5.2 % (0.0-12.0) Eosinophils (%) (Auto) 0.0 % (0.0-7.0) Basophils (%) (Auto) 0.0 % (0.0-2.0) Neutrophils # (Auto) 12.0 10 ^3/uL (1.6-8.6) Lymphocytes # (Auto) 0.5 10 ^3/uL (0.4-5.4) Monocytes # (Auto) 0.7 10 ^3/uL (0-1.3) Eosinophils # (Auto) 0 10 ^3/uL (0-0.8) Basophils # (Auto) 0 10 ^3/uL (0-0.2) Nucleated Red Blood Cells 0.0 % Total Bilirubin 0.3 mg/dL (0.2-1.0) Aspartate Amino Transferase (AST) 14 U/L (13-40) Alanine Aminotransferase (ALT) 28 U/L (7-40) Alkaline Phosphatase 130 U/L (46-116) Total Protein 6.2 g/dL (5.7-8.2) Albumin 3.9 g/dL (3.2-4.8) Test 03/04/24 08:30 03/04/24 03:35 Influenza Type A Antigen Negative (Negative) Influenza Type B Antigen Negative (Negative) SARS-CoV-2 Antigen (Rapid) Negative (NEGATIVE) Troponin I High Sensitivity 4 ng/L (</=54) Other Laboratory Tests 03/07/24 05:20 03/06/24 05:15 Brief Hx & Hospital Course: SEE DICTATED NOTE Condition at Discharge: Fair Final Diagnosis/Problems List COPD Discharge Disposition: Home Discharge Instruct/Medications Diet: Cardiac 2g Na,low cholest Activity: No Restrictions, As Tolerated Follow Up/Referral: FU WIHT PCP IN 1 WK Medications: RESUME HOME MEDS SCRIPT TO PHARMACY Discharge Statement: "Patient was advised to return to the ER or call 911 if any headaches, dizziness, shortness of breath, chest pain, abdominal pain, bleeding, fevers, or worsening of medical condition. Patient was counseled about treatment plan, medications, possible side effects, patientverbalized understanding. All questions were answered to the best of my ability. This discharge took greater then 30 minutes in planning, reviewing documentation, counseling the patient, and discussing with other team members." ASSESSMENT ASSESSMENT Assessment COPD Date of Service: Mar 07, 2024 Billing Provider: BETTE CALLOWAY MD Common Visit Codes: [id number] DISCH DAY >30min BETTE CALLOWAY MD Mar 07, 2024 10:51
[2024-03-07] MEDS ORDERED: AZITTAB2 PO (10:54)
[2024-03-07] MEDS ORDERED: PRED20TA2 PO (10:54)
[2024-03-07] MEDS ORDERED: ALBUAER3 IN (10:54)
--- NOTE | 2024-03-07 11:28 | DVHDS ---
DATE OF DISCHARGE: 03/07/2024 HISTORY OF PRESENT ILLNESS: The patient is a 68-year-old gentleman who was admitted with history of increasing shortness of breath and has history of COPD, CVA, previous lung cancer with lobectomy, PE and coronary artery disease. HOSPITAL COURSE: The patient had chest x-ray that showed no acute change except for trace right pleural effusion. The patient had influenza and COVID tests that were negative. The patient's BNP was within normal limits. The patient is now improving the symptoms and will be discharged on prednisone 20 mg p.o. q.a.m. for five days, Zithromax 500 mg daily for three days and albuterol MDI. He will follow up with his primary in one week. FINAL DIAGNOSES: Therefore, * Acute on chronic respiratory failure. * Chronic obstructive pulmonary disease exacerbation. * Questionable pneumonia, gram-positive, gram-negative. * Hypertension. * History of pulmonary embolism. * History of lung cancer, status post lobectomy. * History of cerebrovascular accident. * Peripheral vascular disease. Time spent in discharge planning and review of plan with the patient and nursing was 37 minutes. MD LUZ MARIA Taylor/JAYLA TID: [id number] RECEIPT: [id number]
== END 2024-03-07 13:30 | disposition home or self-care (01) | DRG 177 ==
LOC: ER 03:22 → EDBD 03:22 → OVERFLOW 06:52 → TELE 07:08 → TELE-WESTW 22:40 → WEST WING 03-06 21:53
PROVIDERS: ADMIT Internal Medicine; ATTEND Internal Medicine
DX: J15.69 Pneumonia due to other Gram-negative bacteria (principal); J96.20 Acute and chronic respiratory failure, unspecified whether with hypoxia or hypercapnia; J44.1 Chronic obstructive pulmonary disease with (acute) exacerbation; J44.0 Chronic obstructive pulmonary disease with (acute) lower respiratory infection; J15.9 Unspecified bacterial pneumonia; I10 Essential (primary) hypertension; I73.9 Peripheral vascular disease, unspecified; Z20.822 Contact with and (suspected) exposure to COVID-19; I25.10 Atherosclerotic heart disease of native coronary artery without angina pectoris; Z99.81 Dependence on supplemental oxygen; Z86.711 Personal history of pulmonary embolism; I25.2 Old myocardial infarction; I69.30 Unspecified sequelae of cerebral infarction; Z85.118 Personal history of other malignant neoplasm of bronchus and lung; Z80.0 Family history of malignant neoplasm of digestive organs; Z87.891 Personal history of nicotine dependence
CPT/HCPCS: 36415; 71045; 80048; 80053; 81001; 83880; 84484; 85025; 87426; 87804; 93005; 94640; 96374; 99291; G0378; J3490

== ENCOUNTER 2024-04-06 18:51 | Inpatient (IN) | payer MEDICARE, MEDICAID ==
[~2024-04-06] VITALS: Ht 165.1 cm; Wt 63.4 kg
[~2024-04-06 18:51] MED LIST changes: +AZITTAB2 PO
--- NOTE | 2024-04-06 19:09 | ECG ---
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
--- NOTE | 2024-04-06 19:11 | ED.PDOC ---
SOB-HPI HPI Comments 68-year-old male came to ER via EMS due to shortness of breath. Patient has history of COPD, states he has ran out of his inhaler, for the past 2 hours he has been having shortness of breath, progressively worsening with chest tightness and wheezing. Saturating 92% on room air. Patient was given breathing treatments by paramedics while en route to the ER. Chief Complaint: Shortness of Breath Time Seen by MD: 19:11 Primary Care Provider: UNKNOWN Reviewed notes: Business Development Agent Notes Information Source: Patient, Emergency Med Personnel Mode of Arrival: EMS Severity: Moderate Timing: Hours Duration: Since onset Context: With Light Exertion PE Risk Factors: None History of: COPD Prehospital treatment: Breathing Tx, Oxygen Modifying Factors: Nothing Associated Signs and Symptoms: Wheeze, Cough, Chest Pain Quality: Tightness Radiation: No Radiation If cough with SOB: Non-Productive Past Medical History PAST MEDICAL HISTORY: Asthma, Cancer, COPD, CVA, HTN, [place], PE Surgical History: Denies all surgeries Family History Family History: Reviewed,noncontributory to illness, Family hx of Cancer Social History Smoker: Cigarettes Alcohol: Denies ETOH Use Drugs: Denies Drug Use Lives In: Home Constitutional: denies: chills, diaphoresis, fatigue, fever, malaise, sweats, weakness, others EENTM: denies: blurred vision, double vision, ear bleeding, ear discharge, ear drainage, ear pain, ear ringing, eye pain, eye redness, hearing loss, mouth pain, mouth swelling, nasal discharge, nose bleeding, nose congestion, nose pain, photophobia, tearing, throat pain, throat swelling, voice changes, others Respiratory: reports: cough, SOB at rest, shortness of breath, SOB with excertion, wheezing; denies: hemoptysis, orthopnea, stridor, others Cardiovascular: reports: chest pain; denies: dizzy spells, diaphoresis, Dyspnea on exertion, edema, irregular heart beat, left arm pain, lightheadedness, palpitations, PND, syncope, others Gastrointestinal: denies: abdomen distended, abdominal pain, blood streaked bowels, constipated, diarrhea, dysphagia, difficulty swallowing, hematemesis, melena, nausea, poor appetite, poor fluid intake, rectal bleeding, rectal pain, vomiting, others Genitourinary: denies: burning, dysuria, flank pain, frequency, hematuria, incontinence, penile discharge, penile sore, pain, testicle pain, testicle swelling, urgency, others Neurological: denies: dizziness, fainting, headache, left sided numbness, left sided weakness, numbness, paresthesia, pre-existing deficit, right sided numbness, right sided weakness, seizure, speech problems, tingling, tremors, weakness, others Integumetry: denies: bruises, change in color, change in hair/nails, dryness, laceration, lesions, lumps, rash, wounds, others Allergic/Immunocompromised: denies: Difficulty Healing, Frequent Infections, Hives, Itching, others Hematologic/Lymphatic: denies: anemia, blood clots, easy bleeding, easy bruising, swollen glands, others Endocrine: denies: excessive hunger, excessive sweating, excessive thirst, excessive urination, flushing, intolerance to cold, intolerance to heat, unexplained weight gain, unexplained weight loss, others Psychiatric: denies: anxiety, bipolar disorder, depression, hopeless, panic disorder, schizophrenia, sleepless, suicidal, others Physical Exam General Appearance: No Apparent Distress, Normal HEENT: Normal ENT Inspection, Pharynx Normal, TMs Normal Neck: Full Range of Motion, Non-Tender, Normal, Normal Inspection Respiratory: Chest Non-Tender, No Accessory Muscle Use, Respiratory Distress, Wheezing Cardiovascular: No Edema, No JVD, No Murmur, No Gallop, Normal Peripheral Pulses, Regular Rate/Rhythm Breast Exam: Deferred Gastrointestinal: No Organomegaly, Non Tender, No Pulsatile Mass, Normal Bowel Sounds, Soft Genitalia: Deferred Pelvic: Deferred Rectal: Deferred Extremities: No calf tenderness, Normal capillary refill, Normal inspection, Normal range of motion, Non-tender, No pedal edema Musculoskeletal : Apperance: Normal Neurologic: Alert, rn documentation specialist II-XII nml as Tested, No Motor Deficits, Normal Affect, Normal Mood, No Sensory Deficits Cerebellar Function: Normal Reflexes: Normal Skin: Dry, Normal Color, Warm Lymphatic: No Adenopathy Was a procedure done? Was a procedure done?: No Differential Dx Differential Diagnosis: Anxiety, Asthma, Bronchitis, CHF, COPD, Myocardial infarction, Panic Attack, Pneumonia, Respiratory Distress X-Ray, Labs, Meds, VS Vital Signs Date Time Temp Pulse Resp B/P (MAP) Pulse Ox O2 Delivery O2 Flow Rate FiO2 2/20/25 18:59 91 04/06/24 18:57 98.0 95 22 142/80 (100) 99 04/06/24 18:56 22 99 Room Air* 0 21 Lab Test 04/06/24 19:24 Range/Units White Blood Count 7.1 4.4-10.8 10^3/uL Red Blood Count 5.42 4.5-5.90 10^6/uL Hemoglobin 14.9 13.5-17.5 g/dL Hematocrit 45.2 41.0-53.0 % Mean Corpuscular Volume 83.4 80.0-100.0 fL Mean Corpuscular Hemoglobin 27.5 L 28.0-32.0 pg Mean Corpuscular Hemoglobin Concent 32.9 32.0-36.0 g/dL Red Cell Distribution Width 18.2 H 11.8-14.3 % Platelet Count 370 140-450 10^3/uL Mean Platelet Volume 7.3 6.9-10.8 fL Neutrophils (%) (Auto) 66.3 37.0-80.0 % Lymphocytes (%) (Auto) 15.7 10.0-50.0 % Monocytes (%) (Auto) 8.7 0.0-12.0 % Eosinophils (%) (Auto) 8.1 H 0.0-7.0 % Basophils (%) (Auto) 1.2 0.0-2.0 % Neutrophils # (Auto) 4.7 1.6-8.6 10 ^3/uL Lymphocytes # (Auto) 1.1 0.4-5.4 10 ^3/uL Monocytes # (Auto) 0.6 0-1.3 10 ^3/uL Eosinophils # (Auto) 0.6 0-0.8 10 ^3/uL Basophils # (Auto) 0.1 0-0.2 10 ^3/uL Nucleated Red Blood Cells 0.1 % Sodium Level 141 136-145 mmol/L Potassium Level 4.4 3.5-5.1 mmol/L Chloride Level 108 H 98-107 mmol/L Carbon Dioxide Level 25 20-31 mmol/L Anion Gap 8 5-15 Blood Urea Nitrogen 9 9-23 mg/dL Creatinine 1.19 0.700-1.30 mg/dL Glomerular Filtration Rate Calc 67 >90 mL/min BUN/Creatinine Ratio 7.6 L 10.0-20.0 Serum Glucose 103 74-106 mg/dL Calcium Level 10.3 8.7-10.4 mg/dL Current Medications Medications (Trade) Dose Ordered Sig/Arnaldo Route Start Time Stop Time Status Last Admin Azithromycin (Zithromax Tablet) 500 mg ONCE ONCE PO 04/06/24 19:15 04/06/24 19:16 DC 04/06/24 21:32 Albuterol (Ventolin Medneb) 5 mg ONCE ONCE NEB 04/06/24 19:15 04/06/24 19:16 DC 04/06/24 20:02 Ipratropium [place] (Atrovent Medneb) 0.5 mg ONCE ONCE NEB 04/06/24 19:15 04/06/24 19:16 DC 04/06/24 20:01 Methylprednisolone Sodium Succinate (Solu Medrol) 62.5 mg ONCE ONCE IV 04/06/24 19:15 04/06/24 19:16 DC 04/06/24 21:33 Time of 1ST Reevaluation: 19:07 Reevaluation 1ST: Unchanged Patient Education/Counseling: Diagnosis, Treatment Family Education/Counseling: No Family Present Departure 1 Departure Time of Disposition: 21:51 (Patient presented with acute shortness of breath concerning for acute on chronic COPD Exacerbation, Pneumonia, ACS, CHF, Pneumothorax. Less likely PE, Dissection. Data: 1. I ordered and reviewed the result of at least 3 labs including a CBC, BMP, and Troponin. 2. I independently interpreted the following tests: Chest X-ray shows .Risk:This patient has a high risk of morbidity due to further diagnostic testing or treatment and may suffer from respiratory or cardiac etiology . Workup reveals a likely COPD Exacerbation and patient should be admitted for further workup. and possible expert consultation.) Impression: Primary Impression: Acute and chronic respiratory failure with hypoxia Additional Impressions: COPD (chronic obstructive pulmonary disease) Qualified Codes: J44.1 - Chronic obstructive pulmonary disease with (acute) exacerbation Shortness of breath Disposition: ADMITTED INPATIENT Admit to: Med Surg Condition: Serious Critical Care Note Critical Care Time?: Yes (35 min-critical care time only) Critical care comment: Shortness of breath Authorized and Performed by: Sunitha Mcgowan MD Total critical care time: Approximately 36 minutes Due to a high probability of clinically significant, life threatening deterioration, the patient required my highest level of preparedness to intervene emergently and I personally spent this critical care time directly and personally managing the patient. This critical care time included obtaining a history; examining the patient; pulse oximetry; ordering and review of studies; arranging urgent treatment with development of a management plan; evaluation of patient's response to treatment; frequent reassessment; and, discussions with other providers. This critical care time was performed to assess and manage the high probability of imminent, life-threatening deterioration that could result in multi-organ failure. It was exclusive of separately billable procedures and treating other patients and teaching time. Please see my other sections and the rest of the note for further information on patient assessment and treatment. Stability Stability form required: No Heart Score Heart Score: Heart Score Response (Comments) Value History Slightly Suspicious 0 EKG Normal 0 Age >65 2 Risk Factors >3 or Hx ASHD 2 Troponin Normal limit 0 Total 4 I personally scribed for SUNITHA MCGOWAN MD ([email or web address]) on 04/06/24 at 19:11. Electronically submitted by Nas Patton ([facility]). SUNITHA MCGOWAN MD Apr 06, 2024 19:11
[2024-04-06 19:42] LABS: Basophils # (auto) 0.1 10 ^3/uL (0-0.2); Basophils % (auto) 1.2 % (0.0-2.0); Eosinophils # (auto) 0.6 10 ^3/uL (0-0.8); Eosinophils % (auto) 8.1 % (0.0-7.0); Hematocrit 45.2 % (41.0-53.0); Hemoglobin 14.9 g/dL (13.5-17.5); Lymphocytes # (auto) 1.1 10 ^3/uL (0.4-5.4); Lymphocytes % (auto) 15.7 % (10.0-50.0); Mean Corpuscular Hemoglobin 27.5 pg (28.0-32.0); Mean Corpuscular Hgb Conc. 32.9 g/dL (32.0-36.0); Mean Corpuscular Volume 83.4 fL (80.0-100.0); Monocytes # (auto) 0.6 10 ^3/uL (0-1.3); Monocytes % (auto) 8.7 % (0.0-12.0); Neutrophils # (auto) 4.7 10 ^3/uL (1.6-8.6); Neutrophils % (auto) 66.3 % (37.0-80.0); Nucleated Red Blood Cells % 0.1 %; Platelet Count (auto) 370 10^3/uL (140-450); Red Blood Cells 5.42 10^6/uL (4.5-5.90); Red Cell Distribution Width 18.2 % (11.8-14.3); White Blood Cell 7.1 10^3/uL (4.4-10.8)
[2024-04-06 19:53] VITALS: BP 123/70; PULSE 87; RESP 20; TEMP 98.3; O2SAT 95
[2024-04-06 19:55] LABS: Potassium 4.4 mmol/L (3.5-5.1); Sodium 141 mmol/L (136-145)
[2024-04-06 19:56] LABS: Anion Gap 8 (5-15); Carbon Dioxide 25 mmol/L (20-31)
[2024-04-06 19:57] LABS: Calcium 10.3 mg/dL (8.7-10.4)
[2024-04-06 20:01] LABS: Glucose 103 mg/dL (74-106)
[2024-04-06] MEDS: IPRATROPIUM BROM 0.5 MG/2.5ML INH SOL NEB ONE (20:01)
[2024-04-06] MEDS: ALBUTEROL SULF 2.5 MG/0.5ML(0.5%) NEB SOLN NEB ONE (20:02)
[2024-04-06 20:21] LABS: BUN/Creatinine Ratio 7.6 (10.0-20.0); Blood Urea Nitrogen 9 mg/dL (9-23); Chloride 108 mmol/L (98-107)
[2024-04-06 21:00] VITALS: RESP 18; O2SAT 99
--- NOTE | 2024-04-06 21:02 | DVH ---
CHEST RADIOGRAPH Indication: sob Technique: Single frontal view of the chest was obtained Comparison: XY CHEST PORTABLE on DOS: 03/07/24, XY CHEST PORTABLE on DOS: 03/04/24, XY CHEST PORTABLE o n DOS: 01/31/24 FINDINGS: Lines and Tubes: None Lungs: Chronic elevation of the right hemidiaphragm with associated Indistinctness. No pneumothorax. Cardiomediastinal contours: Unremarkable Bones: No acute osseous abnormality. IMPRESSION: Right basilar atelectasis /scarring. Underlying trace effusion can not be excluded.
[2024-04-06] MEDS: AZITHROMYCIN 250 MG TAB PO ONE (21:32)
[2024-04-06] MEDS: methylPREDNISolone SOD SUCC 125 MG/2 ML VL IV ONE (21:33)
[2024-04-06] MEDS ORDERED: ALBUTEROL SULF 2.5 MG/0.5ML(0.5%) NEB SOLN NEB PRN (22:15)
[2024-04-06] MEDS ORDERED: ACETAMINOPHEN 325 MG TAB PO PRN (22:15)
[2024-04-06] MEDS ORDERED: hydrALAZINE HCL 20 MG/ML VL IV PRN (22:15)
[2024-04-06] MEDS ORDERED: HYDROcodone-ACET 5/325MG TAB PO PRN (22:15)
[2024-04-06] MEDS ORDERED: ONDANSETRON HCL 4 MG/2 ML VIAL IV PRN (22:15)
[2024-04-06] MEDS ORDERED: DOCUSATE SOD 100 MG CAP PO PRN (22:15)
[2024-04-06] MEDS ORDERED: IPRATROPIUM BROM 0.5 MG/2.5ML INH SOL NEB PRN (22:15)
[2024-04-06] MEDS ORDERED: NITROGLYCERIN 0.4 MG SL TAB SL PRN (23:00)
[2024-04-06] MEDS ORDERED: MORPHINE SULFATE INJ 2 MG/ml SYRG IV PRN (23:00)
--- NOTE | 2024-04-06 23:01 | DVHHP2 ---
History of Present Illness Reason for Visit: COPD with acute exacerbation History of Present Illness The patient is a 68-year-old male with past medical history of asthma, cancer, COPD, CVA, hypertension, VT, and PE presented to [facility] ED with complaint of shortness of breaths. Patient reports symptoms progressively get worse with chest tightness, wheezing, increased work breathing, getting worse that prompted this visit. Patient was seen and evaluated in the ED, laboratory data shows WBC 7.1, platelets 370, sodium 141, potassium 4.4, BUN 9, creatinine 1.19, GFR 67, glucose 103, calcium 10.3, blood pressure 142/80, pulse 95, temperature 98.0 F, O2 saturation 99% on oxygen. Chest x-ray revealing right bibasilar atelectasis/scarring, underlying trace effusion can not be excluded. Patient was given breathing treatment, please see medication orders section in the computer. On my assessment, patient denies chest pain, no headache, no dizziness, currently on oxygen, no nausea, no vomiting, no fever, no chills. Patient was admitted for further evaluation and medical management. Past Medical History Asthma, Cancer, COPD, CVA, HTN, VT, PE Past Surgical History Denies all surgeries Family History Reviewed, noncontributory to the management of this case. Past Social History The patient lives at home, denies smoking, alcohol or illicit drugs abuse. Review of Systems Constitutional: No: Fever, Chills, Sweats, Weakness, Malaise, Other Eyes: No: Pain, Vision change, Conjunctivae inflammation, Eyelid inflammation, Other, Redness ENT: No: Ear pain, Ear discharge, Nose pain, Nose discharge, Nose congestion, Mouth pain, Mouth swelling, Throat pain, Throat swelling, Other Respiratory: Shortness of breath, SOB with excertion, Wheezing, Other (SOB at rest); No: Cough, Dry, Hemoptysis, Pleuritic Pain, Sputum, Wheezing Cardiovascular: No: Chest Pain, Palpitations, Orthopnea, Paroxysmal Noc. Dyspnea, Edema, Lt Headedness, Other Gastrointestinal: No: Nausea, Vomiting, Abdominal Pain, Diarrhea, Constipation, Melena, Hematochezia, Other Genitourinary: No Dysuria, No Frequency, No Incontinence, No Hematuria, No Retention, No Other Musculoskeletal: No: other, neck pain, shoulder pain, arm pain, back pain, hand pain, leg pain, foot pain Skin: No: Rash, Lesions, Jaundice, Bruising, Other Neurological: No: Weakness, Numbness, Incoordination, Change in speech, Confusion, Seizures, Other Allergies: Coded Allergies: NO KNOWN ALLERGIES (Unverified , 03/24/22) Medications Current Medications Medications Dose Ordered Sig/Arnaldo Route Start Time Stop Time Status Last Admin Dose Admin Albuterol 2.5 mg Q4HPRN PRN NEB 04/06/24 22:15 Ipratropium [place] 0.5 mg Q4HPRN PRN NEB 04/06/24 22:15 Methylprednisolone Sodium Succinate 40 mg BID IV 04/07/24 10:00 Famotidine 20 mg Q12HR IV 04/07/24 10:00 Azithromycin 250 ml @ 125 mls/hr DAILY@2100 IV 04/07/24 21:00 Apixaban 5 mg BID PO 04/07/24 10:00 Sodium Chloride 10 ml Q8HR IV 04/07/24 06:00 Acetaminophen/ Hydrocodone Bitart 1 tab Q4HP PRN PO 04/06/24 22:15 Ondansetron HCl 4 mg Q4HP PRN IV 04/06/24 22:15 Docusate Sodium 100 mg BIDPRN PRN PO 04/06/24 22:15 Acetaminophen 650 mg Q6HP PRN PO 04/06/24 22:15 Amlodipine Besylate 5 mg DAILY PO 04/07/24 10:00 Metoprolol Tartrate 25 mg BID PO 04/07/24 10:00 Hydralazine HCl 10 mg Q6HP PRN IV 04/06/24 22:15 Exam Vital Signs Vital Signs Date Time Temp Pulse Resp B/P (MAP) Pulse Ox O2 Delivery O2 Flow Rate FiO2 04/06/24 21:00 98.3 88 18 167/70 (102) 99 98.3 04/06/24 21:00 Nasal Cannula* 3 32 General Appearance: Alert, Oriented X3, Cooperative, No acute distress HEENT: Atraumatic, PERRLA, EOMI, Mucous membr. moist/pink Respiratory: Normal air movement, Other (Diminished breath sounds) Cardiovascular: Regular rate, Normal S1, Normal S2, No murmurs Abdominal: Normal bowel sounds, Soft, No tenderness, No hepatospenomegaly, No masses Extremities: No clubbing, No cyanosis, No edema, Normal pulses, No tenderness/swelling Skin: No rashes, No breakdown, No significant lesion Neuro: Normal gait, Normal speech, Strength at 5/5 X4 ext, Normal tone, Sensation intact, Cranial nerves 3-12 NL, Reflexes 2+ Psych/Mental Status: Mental status NL, Mood NL Labs/Xrays Labs Test 04/06/24 19:24 Range/Units White Blood Count 7.1 4.4-10.8 10^3/uL Red Blood Count 5.42 4.5-5.90 10^6/uL Hemoglobin 14.9 13.5-17.5 g/dL Hematocrit 45.2 41.0-53.0 % Mean Corpuscular Volume 83.4 80.0-100.0 fL Mean Corpuscular Hemoglobin 27.5 L 28.0-32.0 pg Mean Corpuscular Hemoglobin Concent 32.9 32.0-36.0 g/dL Red Cell Distribution Width 18.2 H 11.8-14.3 % Platelet Count 370 140-450 10^3/uL Mean Platelet Volume 7.3 6.9-10.8 fL Neutrophils (%) (Auto) 66.3 37.0-80.0 % Lymphocytes (%) (Auto) 15.7 10.0-50.0 % Monocytes (%) (Auto) 8.7 0.0-12.0 % Eosinophils (%) (Auto) 8.1 H 0.0-7.0 % Basophils (%) (Auto) 1.2 0.0-2.0 % Neutrophils # (Auto) 4.7 1.6-8.6 10 ^3/uL Lymphocytes # (Auto) 1.1 0.4-5.4 10 ^3/uL Monocytes # (Auto) 0.6 0-1.3 10 ^3/uL Eosinophils # (Auto) 0.6 0-0.8 10 ^3/uL Basophils # (Auto) 0.1 0-0.2 10 ^3/uL Nucleated Red Blood Cells 0.1 % Sodium Level 141 136-145 mmol/L Potassium Level 4.4 3.5-5.1 mmol/L Chloride Level 108 H 98-107 mmol/L Carbon Dioxide Level 25 20-31 mmol/L Anion Gap 8 5-15 Blood Urea Nitrogen 9 9-23 mg/dL Creatinine 1.19 0.700-1.30 mg/dL Glomerular Filtration Rate Calc 67 >90 mL/min BUN/Creatinine Ratio 7.6 L 10.0-20.0 Serum Glucose 103 74-106 mg/dL Calcium Level 10.3 8.7-10.4 mg/dL PATIENT: [facility] RACCT: [id number] UNIT: [id number] : 1955 LOC: ER ROOM / BED: / AGE / SEX: 68 / M ADM STATUS: REG ER SERVICE 02 ORDERING PHYSICIAN: SUNITHA ROMO MD PROCEDURE(s): CXRP - CHEST PORTABLE REASON: sob ORDER NUMBER(s): [id number], ACCESSION NUMBER(s): [id number] CHEST RADIOGRAPH Indication: sob Technique: Single frontal view of the chest was obtained Comparison: XY CHEST PORTABLE on DOS: 03/07/24, XY CHEST PORTABLE on DOS: 03/04/24, XY CHEST PORTABLE on DOS: 01/31/24 FINDINGS: Lines and Tubes: None Lungs: Chronic elevation of the right hemidiaphragm with associated Indistinctness. No pneumothorax. Cardiomediastinal contours: Unremarkable Bones: No acute osseous abnormality. IMPRESSION: Right basilar atelectasis /scarring. Underlying trace effusion can not be excluded. Assessment/Plan Assessment/Plan Acute and chronic respiratory failure with hypoxia COPD (chronic obstructive pulmonary disease) Chronic obstructive pulmonary disease with (acute) exacerbation Plan 1. Admit to telemetry unit 2. Breathing treatment 3. Pain control management 4. Management of fluids and electrolytes 5. Consultation for pulmonology 6. Diagnostic tests chest x-ray 7. DVT prophylaxis on SCDs 8. Repeat labs CBC, CMP in a.m. 9. Continue with current medical management 10. Treatment plan discussed with patient and RN. Patient verbalized understanding. Plan discussed with: Patient, Other (RN) My Orders Orders - RANJAN HANLEY DNP Procedure Category Date Status Time Albuterol Medneb PHA 04/06/24 In Process (Ventolin Medneb) 22:15 Ipratropium Medneb PHA 04/06/24 In Process (Atrovent Medneb) 22:15 Methylprednisolone PHA 04/07/24 In Process Sod Succ (Solu Medrol 10:00 Famotidine Injection PHA 04/07/24 In Process (Pepcid Injection) 10:00 Azithromycin 500mg/ PHA 04/07/24 In Process 250ml (Zithromax 50 21:00 *Consult CONS 04/06/24 Transmitted / 22:04 Apixaban (Eliquis) PHA 04/07/24 In Process 10:00 Allergies LINDSAY 04/06/24 In Process 22:04 Code Status CODE 04/06/24 Transmitted 22:04 Sodium Chloride Lock PHA 04/07/24 In Process (Saline Lock Ns) 06:00 Oxygen Per Hour RT 04/06/24 Transmitted 22:04 Hydrocodone-Acet PHA 04/06/24 In Process 5/325mg Tab ([place] 22:15 Ondansetron Hcl PHA 04/06/24 In Process (Zofran) 22:15 Docusate Sodium PHA 04/06/24 In Process Capsule (Colace 22:15 Complete Blood Count LAB 04/07/24 Verified 04:00 Comprehensive LAB 04/07/24 Verified Metabolic Panel 04:00 Cardiac DIET 04/07/24 Transmitted Diet-2gna,Lofat,Lochol Breakfast Condition: Serious LINDSAY 04/06/24 In Process 22:04 Acetaminophen Tablet PHA 04/06/24 In Process (Tylenol Tablet) 22:15 Bedrest With Bathroom LINDSAY 04/06/24 In Process Privileg 22:04 Sequential LINDSAY 04/06/24 In Process Compression Device Amlodipine Tablet PHA 04/07/24 In Process (Norvasc Tablet) 10:00 Metoprolol Tartrate PHA 04/07/24 In Process Tablet (Lopressor Ta 10:00 Hydralazine Injection PHA 04/06/24 In Process (Apresoline Inject 22:15 Admit ADMIT 04/06/24 Verified 23:00 Nitroglycerin PHA 04/06/24 Verified Sublingual (Ntrostat 23:00 Morphine Sulfate PHA 04/06/24 Verified Injection 23:00 Notify Of Changes LINDSAY 04/06/24 Verified From Base 23:00 Consulting Business Developer For LINDSAY 04/06/24 Verified 24 Hours 23:00 Emergency Dysrhythmia LINDSAY 04/06/24 Verified Protocol 23:00 Rhythm Strips Once LINDSAY 04/06/24 Verified Every Shift 23:00 Oxygen By Nasal RT 04/06/24 Verified Cannula 23:00 Problem List: (1) Acute and chronic respiratory failure with hypoxia (2) COPD (chronic obstructive pulmonary disease) (3) Chronic obstructive pulmonary disease with acute exacerbation Date of Service: Apr 06, 2024 Billing Provider: RANJAN HANLEY DNP Common Visit Codes: [id number] INP/OBS CARE (HIGH) RANJAN HANLEY DNP Apr 06, 2024 23:01
[2024-04-07] VITALS (10 sets, daily range): PULSE 79–96; RESP 17–20; O2SAT 96–100
--- NOTE | 2024-04-07 00:31 | DVHINCON2 ---
Date of service: Apr 06, 2024 Referring Physician Ronny Cruz NP Reason for Consultation Hypoxia History of Present Illness 68-year-old man with PMHx of asthma, COPD, pulmonary embolism, cancer, CVA, ND and hypertension who presents to the ED via EMS today due to shortness of breat h. Patient states he ran out of his inhaler. For the past 2 hours prior to presentation, he has been having shortness of breath, progressively worsening with chest tightness and wheezing. Saturation of 92% on room air. Patient was given breathing treatments by paramedics while en route to the ER. Patient was admitted for further care and pulmonary consultation is requested for evaluation and management of acute hypoxic respiratory failure. Review of Systems: 14-point review of systems negative unless otherwise noted above. Past Medical History: Asthma, COPD, pulmonary embolism, cancer, CVA, ND and hypertension . Past Surgical History: Denies Medications: Reviewed. Allergies: No known drug allergies. Family History: Alzheimer's disease Heart attack Prostate cancer Hypertension Social History: Current smoker. No alcohol or illicit drug use. Family History: Alzheimer's disease FH: cancer G8 MOTHER G8 FATHER FH: heart attack G8 MOTHER, FHx: cancer of prostate G8 FATHER, Hypertension G8 MOTHER, G8 FATHER, Allergies: Coded Allergies: NO KNOWN ALLERGIES (Unverified , 03/24/22) Home Meds Active Scripts Azithromycin (Zithromax Tri-Bubba) 500 Mg Tab, 500 MG PO DAILY for 3 Days, #3 TAB Prov:BETTE CALLOWAY MD 03/07/24 Albuterol Sulfate (VENTOLIN MDI) 90 Mcg Ih, 90 MCG IN TIDP PRN for 30 Days, #1 INH 2 Refills Prov:BETTE CALLOWAY MD 03/07/24 Prednisone (Prednisone) 20 Mg Tab, 20 MG PO QAM for 5 Days, #10 MG Prov:BETTE CALLOWAY MD 03/07/24 Azithromycin (Zithromax Z-Bubba) 250 Mg Tab, 250 MG PO DAILY for 3 Days, #3 TAB Prov:CLOVER RASMUSSEN RESIDENT 02/03/24 Prednisone (Prednisone) 20 Mg Tab, 20 MG PO BID for 5 Days, #10 MG Prov:CLOEVR RASMUSSEN RESIDENT 02/03/24 Methocarbamol (Methocarbamol) 500 Mg Tab, 500 MG PO HS PRN for 7 Days, #7 TAB Prov:DEANIVA MIDWIFE PRACTITIONER 11/23/23 Ykgfvyozbnx-Roykqzskqdbz-Adofh (Trelegy Ellipta 100-62.5-25 Mcg/INH) 1 Aer Aer, 1 AER IN ONCE for 30 Days, #30 AER Prov:DONG BAKER MD 11/20/23 Albuterol Sulfate (VENTOLIN MDI) 90 Mcg Ih, 90 MCG IN T.i.d. for 15 Days, #1 INH Prov:DAVID EDUARDO MD 09/10/23 Nicotine (Nicoderm 21MG/24HR) 1 Patch Ph, 1 PATCH TOP DAILY, #28 PATCH 1 Refill Prov:KADY SMITH [facility] 04/07/23 Amlodipine Besylate (Amlodipine Besylate) 10 Mg Tab, 1 TAB PO DAILY, #90 TAB 1 Refill Prov:VALERIO HOLDER MD 07/17/21 Apixaban Base (ELIQUIS) 5 Mg Tab, 5 MG PO BID for 90 Days, #180 TAB Prov:DORIS DIAZ MD 06/18/20 Reported Medications Albuterol Sulfate (Albuterol Sulfate Hfa) 108 Mcg/Act Aer, 2 PUFF INH Q6HR 04/07/23 Memantine Hydrochloride (Memantine HCl) 10 Mg Tab, 1 TAB PO BID 04/06/23 Current Medications Current Medications Medications (Trade) Dose Ordered Sig/Arnaldo Route PRN Reason Start Time Stop Time Status Last Admin Albuterol (Ventolin Medneb) 2.5 mg Q4HPRN PRN NEB SHORTNESS OF BREATH 04/06/24 22:15 Ipratropium [place] (Atrovent Medneb) 0.5 mg Q4HPRN PRN NEB SHORTNESS OF BREATH 04/06/24 22:15 Methylprednisolone Sodium Succinate (Solu Medrol) 40 mg BID IV 04/07/24 10:00 Famotidine (Pepcid Injection) 20 mg Q12HR IV 04/07/24 10:00 Azithromycin 250 ml @ 125 mls/hr DAILY@2100 IV 04/07/24 21:00 Apixaban (Eliquis) 5 mg BID PO 04/07/24 10:00 Sodium Chloride (Saline Lock Ns) 10 ml Q8HR IV 04/07/24 06:00 Acetaminophen/ Hydrocodone Bitart ([place] 5/325MG Tab) 1 tab Q4HP PRN PO MODERATE PAIN (4-6 PAIN SCALE) 04/06/24 22:15 Ondansetron HCl (Zofran) 4 mg Q4HP PRN IV NAUSEA / VOMITING 04/06/24 22:15 Docusate Sodium (Colace Capsule) 100 mg BIDPRN PRN PO FOR CONSTIPATION 04/06/24 22:15 Acetaminophen (Tylenol Tablet) 650 mg Q6HP PRN PO PAIN SCALE 1-3 OR TEMP>100.4 04/06/24 22:15 Amlodipine Besylate (Norvasc Tablet) 5 mg DAILY PO 04/07/24 10:00 Metoprolol Tartrate (Lopressor Tablet) 25 mg BID PO 04/07/24 10:00 Hydralazine HCl (Apresoline Injection) 10 mg Q6HP PRN IV SBP>150 04/06/24 22:15 Nitroglycerin (Ntrostat Sublingual) 0.4 mg Q5MINP PRN SL FOR CHEST PAIN 04/06/24 23:00 Morphine Sulfate 2 mg Q30M PRN IV FOR CHEST PAIN 04/06/24 23:00 Vital Signs Vital Signs Date Time Temp Pulse Resp B/P (MAP) Pulse Ox O2 Delivery O2 Flow Rate FiO2 04/06/24 21:00 98.3 88 18 167/70 (102) 99 98.3 04/06/24 21:00 Nasal Cannula* 3 32 Physical Exam Gen.: Patient lying in bed in no apparent distress. On supplemental oxygen. Head: Normocephalic, atraumatic. Eyes: EOMI/PERRLA. Ears: Normal hearing. Normal anatomy. Neck/trachea: Trachea midline, supple. Nose: Normal external anatomy. Mouth: Moist mucous membranes. Chest: Decreased air entry bilaterally. No wheezing or rhonchi. Cardiovascular: Positive S1, positive S2. Regular rate and rhythm. Abdomen: Positive bowel sounds in all 4 quadrants. Soft, non-tender, non- distended. : Deferred. Rectal: Deferred. Skin: Warm, dry. Intact. Extremities: 2+ radial pulses bilaterally. No lower extremity edema. Neuro: Awake, alert, oriented x3. No gross motor or sensory deficits. Cranial nerves II through XII intact. Gait not assessed. Labs/Diagnostic Data Labs Test 04/06/24 19:24 Range/Units White Blood Count 7.1 4.4-10.8 10^3/uL Red Blood Count 5.42 4.5-5.90 10^6/uL Hemoglobin 14.9 13.5-17.5 g/dL Hematocrit 45.2 41.0-53.0 % Mean Corpuscular Volume 83.4 80.0-100.0 fL Mean Corpuscular Hemoglobin 27.5 L 28.0-32.0 pg Mean Corpuscular Hemoglobin Concent 32.9 32.0-36.0 g/dL Red Cell Distribution Width 18.2 H 11.8-14.3 % Platelet Count 370 140-450 10^3/uL Mean Platelet Volume 7.3 6.9-10.8 fL Neutrophils (%) (Auto) 66.3 37.0-80.0 % Lymphocytes (%) (Auto) 15.7 10.0-50.0 % Monocytes (%) (Auto) 8.7 0.0-12.0 % Eosinophils (%) (Auto) 8.1 H 0.0-7.0 % Basophils (%) (Auto) 1.2 0.0-2.0 % Neutrophils # (Auto) 4.7 1.6-8.6 10 ^3/uL Lymphocytes # (Auto) 1.1 0.4-5.4 10 ^3/uL Monocytes # (Auto) 0.6 0-1.3 10 ^3/uL Eosinophils # (Auto) 0.6 0-0.8 10 ^3/uL Basophils # (Auto) 0.1 0-0.2 10 ^3/uL Nucleated Red Blood Cells 0.1 % Sodium Level 141 136-145 mmol/L Potassium Level 4.4 3.5-5.1 mmol/L Chloride Level 108 H 98-107 mmol/L Carbon Dioxide Level 25 20-31 mmol/L Anion Gap 8 5-15 Blood Urea Nitrogen 9 9-23 mg/dL Creatinine 1.19 0.700-1.30 mg/dL Glomerular Filtration Rate Calc 67 >90 mL/min BUN/Creatinine Ratio 7.6 L 10.0-20.0 Serum Glucose 103 74-106 mg/dL Calcium Level 10.3 8.7-10.4 mg/dL Assessment Impression: Acute exacerbation of COPD Acute hypoxic respiratory failure Dependence on supplemental oxygen Nicotine dependence Atelectasis Plan: Supplemental oxygen Titrate to keep O2 sats above 92%. Chest x-ray reviewed, demonstrated right basilar atelectasis /scarring. Underlying trace effusion cannot be excluded. Continue bronchodilators. Continue antibiotics IV steroids Monitor renal function. Monitor electrolytes. Supplement as necessary. Monitor ins and outs. Smoking cessation discussed for greater than 10 minutes DVT prophylaxis. Prognosis: Poor given patient's multiple co-morbidities. Rest of plan per hospitalist and other consultants. Thank you, RUPESH Cruz, for allowing me to participate in this patient's care. Further recommendations will depend on the patient's clinical course. Please do not hesitate to contact me if you have any questions or concerns. This medical document was created using an electronic medical record system with [employer] dictation system. Although these documentations are being carefully reviewed, there may still be some phonetic and typographical changes. The errors are purely typographical, due to imperfection on the software program, and do not reflect any compromise in the patient's medical care. Plan discussed with: Other ([employer]) AISHWARYA JHA MD Apr 07, 2024 00:31
[2024-04-07 03:58] LABS: Basophils # (auto) 0 10 ^3/uL (0-0.2); Basophils % (auto) 0.4 % (0.0-2.0); Eosinophils # (auto) 0 10 ^3/uL (0-0.8); Hemoglobin 14.4 g/dL (13.5-17.5)
[2024-04-07 04:02] LABS: Eosinophils % (auto) 0.2 % (0.0-7.0); Hematocrit 44.6 % (41.0-53.0); Lymphocytes # (auto) 0.5 10 ^3/uL (0.4-5.4); Lymphocytes % (auto) 6.5 % (10.0-50.0); Mean Corpuscular Hemoglobin 27.1 pg (28.0-32.0); Mean Corpuscular Hgb Conc. 32.3 g/dL (32.0-36.0); Monocytes # (auto) 0.1 10 ^3/uL (0-1.3); Monocytes % (auto) 1.1 % (0.0-12.0); Neutrophils # (auto) 6.6 10 ^3/uL (1.6-8.6); Neutrophils % (auto) 91.8 % (37.0-80.0); Nucleated Red Blood Cells % 0.1 %; Platelet Count (auto) 338 10^3/uL (140-450); Red Blood Cells 5.31 10^6/uL (4.5-5.90); Red Cell Distribution Width 18.5 % (11.8-14.3); White Blood Cell 7.1 10^3/uL (4.4-10.8)
[2024-04-07 04:20] LABS: Alanine Aminotransferase 30 U/L (7-40); Albumin 4.7 g/dL (3.2-4.8); Anion Gap 11 (5-15); Aspartate Aminotransferase 19 U/L (13-40); BUN/Creatinine Ratio 10.1 (10.0-20.0); Bilirubin, Total 0.3 mg/dL (0.2-1.0); Blood Urea Nitrogen 14 mg/dL (9-23); Calcium 10.1 mg/dL (8.7-10.4); Carbon Dioxide 21 mmol/L (20-31); Chloride 107 mmol/L (98-107); Potassium 5.1 mmol/L (3.5-5.1); Sodium 139 mmol/L (136-145)
[2024-04-07 04:26] LABS: Alkaline Phosphatase 152 U/L (46-116); Glucose 263 mg/dL (74-106)
[2024-04-07] MEDS: SODIUM CHLOR 0.9% PF (SALINE LOCK) 10ML VIAL/SYR IV SCH (06:15)
[2024-04-07] MEDS: ALBUTEROL SULF 2.5 MG/0.5ML(0.5%) NEB SOLN NEB SCH (06:58)
[2024-04-07] MEDS: IPRATROPIUM BROM 0.5 MG/2.5ML INH SOL NEB SCH (06:58)
[2024-04-07] MEDS: amLODIPine BESYLATE 5 MG TAB PO SCH (10:16)
[2024-04-07] MEDS: APIXABAN 5 MG TAB PO SCH (10:17)
[2024-04-07] MEDS: METOPROLOL TARTRATE 25 MG TAB PO SCH (10:17)
[2024-04-07] MEDS: FAMOTIDINE (10MG/ML) 2ML VL IV SCH (10:17)
[2024-04-07] MEDS: methylPREDNISolone SOD SUCC 40 MG/ML VL IV SCH (10:17)
--- NOTE | 2024-04-07 14:57 | DVHPN2 ---
Reviewed: Care Plan, H&P, Labs, Medications, Previous Orders, Radiology Changes from previous H/P or p: No Changes Eyes: No Pain, No Vision change, No Conjunctivae inflammation, No Eyelid inflammation, No Other, No Redness ENT: No Ear pain, No Ear discharge, No Nose pain, No Nose discharge, No Nose congestion, No Mouth pain, No Mouth swelling, No Throat pain, No Throat swelling, No Other Cardiovascular: No Chest Pain, No Palpitations, No Orthopnea, No Paroxysmal Noc. Dyspnea, No Edema, No Lt Headedness, No Other Respiratory: No Cough, No Dry; Shortness of breath, SOB with excertion, W heezing; No Hemoptysis, No Pleuritic Pain, No Sputum; Other (SOB at rest) Gastrointestinal: No Nausea, No Vomiting, No Abdominal Pain, No Diarrhea, No Constipation, No Melena, No Hematochezia, No Other Genitourinary: No Dysuria, No Frequency, No Incontinence, No Hematuria, No Retention, No Other Musculoskeletal: No other, No neck pain, No shoulder pain, No arm pain, No back pain, No hand pain, No leg pain, No foot pain Skin: No Rash, No Lesions, No Jaundice, No Bruising, No Other Objective Vitals Vital Signs Date Time Temp Pulse Resp B/P (MAP) Pulse Ox O2 Delivery O2 Flow Rate FiO2 04/07/24 13:48 90 20 97 04/07/24 13:47 Nasal Cannula* 4 36 04/07/24 11:17 124/67 04/07/24 07:47 97.0 97.0 Medications Current Medications Medications Dose Ordered Sig/Arnaldo Route Start Time Stop Time Status Last Admin Dose Admin Methylprednisolone Sodium Succinate 40 mg BID IV 04/07/24 10:00 04/07/24 10:17 40 MG Famotidine 20 mg Q12HR IV 04/07/24 10:00 04/07/24 10:17 20 MG Azithromycin 250 ml @ 125 mls/hr DAILY@2100 IV 04/07/24 21:00 Apixaban 5 mg BID PO 04/07/24 10:00 04/07/24 10:17 5 MG Sodium Chloride 10 ml Q8HR IV 04/07/24 06:00 04/07/24 06:15 10 ML Acetaminophen/ Hydrocodone Bitart 1 tab Q4HP PRN PO 04/06/24 22:15 Ondansetron HCl 4 mg Q4HP PRN IV 04/06/24 22:15 Docusate Sodium 100 mg BIDPRN PRN PO 04/06/24 22:15 Acetaminophen 650 mg Q6HP PRN PO 04/06/24 22:15 Amlodipine Besylate 5 mg DAILY PO 04/07/24 10:00 04/07/24 10:16 5 MG Metoprolol Tartrate 25 mg BID PO 04/07/24 10:00 04/07/24 10:17 25 MG Hydralazine HCl 10 mg Q6HP PRN IV 04/06/24 22:15 Nitroglycerin 0.4 mg Q5MINP PRN SL 04/06/24 23:00 Morphine Sulfate 2 mg Q30M PRN IV 04/06/24 23:00 Albuterol 2.5 mg Q6HR NEB 04/07/24 06:00 04/07/24 13:47 2.5 MG Ipratropium [place] 0.5 mg Q6HR NEB 04/07/24 06:00 04/07/24 13:47 0.5 MG Laboratory Results Laboratory Tests 04/07/24 03:39 Chemistry Test 04/06/24 19:24 04/07/24 03:39 Calcium Level 10.3 mg/dL (8.7-10.4) 10.1 mg/dL (8.7-10.4) Albumin 4.7 g/dL (3.2-4.8) Total Protein 7.0 g/dL (5.7-8.2) LFT Test 04/07/24 03:39 Alanine Aminotransferase (ALT) 30 U/L (7-40) Alkaline Phosphatase 152 U/L (46-116) H Aspartate Amino Transferase (AST) 19 U/L (13-40) Total Bilirubin 0.3 mg/dL (0.2-1.0) Labs and/or images reviewed: Labs reviewed by me, Image(s) reviewed by me Assessment/Plan Assessment/Plan Possible right lower lobe Pneumonia: Azithromycin consult by Dr. Crawford appreciated * Acute on chronic respiratory failure. * Chronic obstructive pulmonary disease exacerbation. * Questionable pneumonia, gram-positive, gram-negative. * Hypertension. * History of pulmonary embolism. * History of lung cancer, status post lobectomy. * History of cerebrovascular accident. * Peripheral vascular disease. Time spent 50 minutes Advanced care planning time 20 mts Patient is full code Plan discussed with: Patient Date of Service: Apr 07, 2024 Billing Provider: VALERIO HOLDER MD Common Visit Codes: [id number] INP/OBS CARE(HIGH) Secondary Visit Codes: [id number] CARE PLAN 30 MINUTES VALERIO HOLDER MD Apr 07, 2024 14:57
--- NOTE | 2024-04-07 18:15 | DVHPN2 ---
Progress Note - Dictate Date Seen: Apr 07, 2024 Medical Necessity Reason Pt with a Central, PICC or Fol: No Subjective Patient seen and examined at bedside. Remains on supplemental oxygen Overnight events reviewed. vital signs Vital Sign Date Time Temp Pulse Resp B/P (MAP) Pulse Ox O2 Delivery O2 Flow Rate FiO2 04/07/24 16:00 68 16 117/67 (84) 98 04/07/24 13:47 Nasal Cannula* 4 36 04/07/24 07:47 97.0 97.0 medications Current Medications Medications Dose Ordered Sig/Arnaldo Route Start Time Stop Time Status Last Admin Dose Admin Methylprednisolone Sodium Succinate 40 mg BID IV 04/07/24 10:00 04/07/24 10:17 40 MG Famotidine 20 mg Q12HR IV 04/07/24 10:00 04/07/24 10:17 20 MG Azithromycin 250 ml @ 125 mls/hr DAILY@2100 IV 04/07/24 21:00 Apixaban 5 mg BID PO 04/07/24 10:00 04/07/24 10:17 5 MG Sodium Chloride 10 ml Q8HR IV 04/07/24 06:00 04/07/24 14:00 10 ML Acetaminophen/ Hydrocodone Bitart 1 tab Q4HP PRN PO 04/06/24 22:15 Ondansetron HCl 4 mg Q4HP PRN IV 04/06/24 22:15 Docusate Sodium 100 mg BIDPRN PRN PO 04/06/24 22:15 Acetaminophen 650 mg Q6HP PRN PO 04/06/24 22:15 Amlodipine Besylate 5 mg DAILY PO 04/07/24 10:00 04/07/24 10:16 5 MG Metoprolol Tartrate 25 mg BID PO 04/07/24 10:00 04/07/24 10:17 25 MG Hydralazine HCl 10 mg Q6HP PRN IV 04/06/24 22:15 Nitroglycerin 0.4 mg Q5MINP PRN SL 04/06/24 23:00 Morphine Sulfate 2 mg Q30M PRN IV 04/06/24 23:00 Albuterol 2.5 mg Q6HR NEB 04/07/24 06:00 04/07/24 13:47 2.5 MG Ipratropium [place] 0.5 mg Q6HR NEB 04/07/24 06:00 04/07/24 13:47 0.5 MG objective Gen.: Patient lying in bed in no apparent distress. On supplemental oxygen. Head: Normocephalic, atraumatic. Eyes: EOMI/PERRLA. Ears: Normal hearing. Normal anatomy. Neck/trachea: Trachea midline, supple. Nose: Normal external anatomy. Mouth: Moist mucous membranes. Chest: Decreased air entry bilaterally. No wheezing or rhonchi. Cardiovascular: Positive S1, positive S2. Regular rate and rhythm. Abdomen: Positive bowel sounds in all 4 quadrants. Soft, non-tender, non- distended. : Deferred. Rectal: Deferred. Skin: Warm, dry. Intact. Extremities: 2+ radial pulses bilaterally. No lower extremity edema. Neuro: Awake, alert, oriented x3. No gross motor or sensory deficits. Cranial nerves II through XII intact. Gait not assessed. laboratory and microbiology Laboratory Tests 04/07/24 03:39 Test 04/07/24 03:39 Range/Units Serum Glucose 263 #H 74-106 mg/dL Assessment/Plan Impression: Acute exacerbation of COPD Acute hypoxic respiratory failure Dependence on supplemental oxygen Nicotine dependence Atelectasis Events: Remains on supplemental oxygen, 4 LPM NC Taper O2 as tolerated Labs reviewed Continue bronchodilators Continue steroids - taper as tolerated Continue antibiotics Incentive spirometry Monitor renal function - increasing creatinine to 1.39 Monitor electrolytes. Supplement as necessary. Accu-Cheks, ISS. Labs and imaging reviewed. Rest of plan as noted below. Plan: Supplemental oxygen Titrate to keep O2 sats above 92%. Chest x-ray reviewed, demonstrated right basilar atelectasis /scarring. Underlying trace effusion cannot be excluded. Continue bronchodilators. Continue antibiotics IV steroids - taper as tolerated Monitor renal function. Monitor electrolytes. Supplement as necessary. Monitor ins and outs. Smoking cessation discussed for greater than 10 minutes DVT prophylaxis. Prognosis: Guarded given patient's multiple co-morbidities. Rest of plan per hospitalist and other consultants. Thank you, RUPESH Cruz, for allowing me to participate in this patient's care. Further recommendations will depend on the patient's clinical course. Please do not hesitate to contact me if you have any questions or concerns. This medical document was created using an electronic medical record system with [employer] dictation system. Although these documentations are being carefully reviewed, there may still be some phonetic and typographical changes. The errors are purely typographical, due to imperfection on the software program, and do not reflect any compromise in the patient's medical care. Plan discussed with: Patient, Other (ED RN) AISHWARYA JHA MD Apr 07, 2024 18:15
[2024-04-07] MEDS: AZITHROMYCIN 500MG/ 250ML 250 ML IV SCH (21:05)
[2024-04-08] VITALS (8 sets, daily range): BP systolic 115–148; BP diastolic 73–85; PULSE 68–99; RESP 16–22; TEMP 97.5–98.1; O2SAT 94–100
[2024-04-08] MEDS ORDERED: IPRA0.00 (01:35)
--- NOTE | 2024-04-08 09:28 | DVHPN2 ---
Reviewed: Care Plan, H&P, Labs, Medications, Previous Orders, Radiology Changes from previous H/P or p: No Changes Eyes: No Pain, No Vision change, No Conjunctivae inflammation, No Eyelid inflammation, No Other, No Redness ENT: No Ear pain, No Ear discharge, No Nose pain, No Nose discharge, No Nose congestion, No Mouth pain, No Mouth swelling, No Throat pain, No Throat swelling, No Other Cardiovascular: No Chest Pain, No Palpitations, No Orthopnea, No Paroxysmal Noc. Dyspnea, No Edema, No Lt Headedness, No Other Respiratory: No Cough, No Dry; Shortness of breath, SOB with excertion, W heezing; No Hemoptysis, No Pleuritic Pain, No Sputum; Other (SOB at rest) Gastrointestinal: No Nausea, No Vomiting, No Abdominal Pain, No Diarrhea, No Constipation, No Melena, No Hematochezia, No Other Genitourinary: No Dysuria, No Frequency, No Incontinence, No Hematuria, No Retention, No Other Musculoskeletal: No other, No neck pain, No shoulder pain, No arm pain, No back pain, No hand pain, No leg pain, No foot pain Skin: No Rash, No Lesions, No Jaundice, No Bruising, No Other Objective Vitals Vital Signs Date Time Temp Pulse Resp B/P (MAP) Pulse Ox O2 Delivery O2 Flow Rate FiO2 04/08/24 08:33 98.1 79 16 115/73 (87) 98 98.1 04/08/24 07:41 Nasal Cannula* 4 36 Intake/Output Intake and Output 04/08/24 07:00 Intake Total 920 ml Output Total 1375 ml Balance -455 ml Intake Oral 670 ml IV Total 250 ml Output Urine Total 1375 ml Medications Current Medications Medications Dose Ordered Sig/Arnaldo Route Start Time Stop Time Status Last Admin Dose Admin Methylprednisolone Sodium Succinate 40 mg BID IV 04/07/24 10:00 04/07/24 22:00 40 MG Famotidine 20 mg Q12HR IV 04/07/24 10:00 04/07/24 22:00 20 MG Azithromycin 250 ml @ 125 mls/hr DAILY@2100 IV 04/07/24 21:00 04/07/24 21:05 125 MLS/HR Apixaban 5 mg BID PO 04/07/24 10:00 04/07/24 22:01 5 MG Sodium Chloride 10 ml Q8HR IV 04/07/24 06:00 04/08/24 06:00 10 ML Acetaminophen/ Hydrocodone Bitart 1 tab Q4HP PRN PO 04/06/24 22:15 Ondansetron HCl 4 mg Q4HP PRN IV 04/06/24 22:15 Docusate Sodium 100 mg BIDPRN PRN PO 04/06/24 22:15 Acetaminophen 650 mg Q6HP PRN PO 04/06/24 22:15 Amlodipine Besylate 5 mg DAILY PO 04/07/24 10:00 04/07/24 10:16 5 MG Metoprolol Tartrate 25 mg BID PO 04/07/24 10:00 04/07/24 22:01 25 MG Hydralazine HCl 10 mg Q6HP PRN IV 04/06/24 22:15 Nitroglycerin 0.4 mg Q5MINP PRN SL 04/06/24 23:00 Morphine Sulfate 2 mg Q30M PRN IV 04/06/24 23:00 Albuterol 2.5 mg Q6HR NEB 04/07/24 06:00 04/08/24 07:41 2.5 MG Ipratropium [place] 0.5 mg Q6HR NEB 04/07/24 06:00 04/08/24 07:41 0.5 MG Laboratory Results Laboratory Tests 04/07/24 03:39 Labs and/or images reviewed: Labs reviewed by me, Image(s) reviewed by me Assessment/Plan Assessment/Plan Possible right lower lobe Pneumonia: Azithromycin consult by Dr. Crawford appreciated * Acute on chronic respiratory failure. * Chronic obstructive pulmonary disease exacerbation. * Questionable pneumonia, gram-positive, gram-negative. * Hypertension. * History of pulmonary embolism. * History of lung cancer, status post lobectomy. * History of cerebrovascular accident. * Peripheral vascular disease. Time spent 45 minutes Plan discussed with: Patient Date of Service: Apr 08, 2024 Billing Provider: VALERIO HOLDER MD Common Visit Codes: [id number] INP/OBS CARE(HIGH) VALERIO HOLDER MD Apr 08, 2024 09:28
--- NOTE | 2024-04-08 19:38 | DVHPN2 ---
Progress Note - Dictate Date Seen: Apr 08, 2024 Medical Necessity Reason Pt with a Central, PICC or Fol: No Subjective Patient seen and examined at bedside. Remains on supplemental oxygen Overnight events reviewed. vital signs Vital Sign Date Time Temp Pulse Resp B/P (MAP) Pulse Ox O2 Delivery O2 Flow Rate FiO2 04/08/24 10:12 79 115/73 04/08/24 10:00 100 Nasal Cannula* 4 36 04/08/24 08:33 98.1 16 98.1 Total Intake and Output 04/07/24 04/07/24 04/08/24 15:00 23:00 07:00 Intake Total 250 ml 670 ml Output Total 1375 ml Balance 250 ml -705 ml objective Gen.: Patient lying in bed in no apparent distress. On supplemental oxygen. Head: Normocephalic, atraumatic. Eyes: EOMI/PERRLA. Ears: Normal hearing. Normal anatomy. Neck/trachea: Trachea midline, supple. Nose: Normal external anatomy. Mouth: Moist mucous membranes. Chest: Decreased air entry bilaterally. No wheezing or rhonchi. Cardiovascular: Positive S1, positive S2. Regular rate and rhythm. Abdomen: Positive bowel sounds in all 4 quadrants. Soft, non-tender, non- distended. : Deferred. Rectal: Deferred. Skin: Warm, dry. Intact. Extremities: 2+ radial pulses bilaterally. No lower extremity edema. Neuro: Awake, alert, oriented x3. No gross motor or sensory deficits. Cranial nerves II through XII intact. Gait not assessed. laboratory and microbiology Laboratory Tests 04/07/24 03:39 Test 04/07/24 03:39 Range/Units Serum Glucose 263 #H 74-106 mg/dL Assessment/Plan Impression: Acute exacerbation of COPD Acute hypoxic respiratory failure Dependence on supplemental oxygen Nicotine dependence Atelectasis Events: Remains on supplemental oxygen, 4 LPM NC Taper O2 as tolerated Labs reviewed Continue bronchodilators Continue steroids - taper as tolerated Continue antibiotics Incentive spirometry Monitor renal function - increasing creatinine to 1.39 Monitor electrolytes. Supplement as necessary. Potassium of 5.1 Accu-Cheks, ISS. Labs and imaging reviewed. Rest of plan as noted below. Plan: Supplemental oxygen Titrate to keep O2 sats above 92%. Chest x-ray reviewed, demonstrated right basilar atelectasis /scarring. Underlying trace effusion cannot be excluded. Continue bronchodilators. Continue antibiotics IV steroids - taper as tolerated Monitor renal function. Monitor electrolytes. Supplement as necessary. Monitor ins and outs. Smoking cessation discussed for greater than 10 minutes DVT prophylaxis. Prognosis: Guarded given patient's multiple co-morbidities. Rest of plan per hospitalist and other consultants. Thank you, RUPESH Cruz, for allowing me to participate in this patient's care. Further recommendations will depend on the patient's clinical course. Please do not hesitate to contact me if you have any questions or concerns. This medical document was created using an electronic medical record system with [employer] dictation system. Although these documentations are being carefully reviewed, there may still be some phonetic and typographical changes. The errors are purely typographical, due to imperfection on the software program, and do not reflect any compromise in the patient's medical care. Plan discussed with: Patient, Other (ERVIN Barrientos) AISHWARYA JHA MD Apr 08, 2024 19:38
--- NOTE | 2024-04-09 09:29 | DVHDS2 ---
Discharge Summary Date of Admission Apr 06, 2024 at 23:00 Date of Discharge: Apr 08, 2024 Admitting Diagnosis Shortness of breath Wounds: None Labs/Diagnostic Data: Laboratory Results Test 04/07/24 03:39 White Blood Count 7.1 10^3/uL (4.4-10.8) Red Blood Count 5.31 10^6/uL (4.5-5.90) Hemoglobin 14.4 g/dL (13.5-17.5) Hematocrit 44.6 % (41.0-53.0) Mean Corpuscular Volume 84.0 fL (80.0-100.0) Mean Corpuscular Hemoglobin 27.1 pg (28.0-32.0) Mean Corpuscular Hemoglobin Concent 32.3 g/dL (32.0-36.0) Red Cell Distribution Width 18.5 % (11.8-14.3) Platelet Count 338 10^3/uL (140-450) Mean Platelet Volume 7.4 fL (6.9-10.8) Neutrophils (%) (Auto) 91.8 % (37.0-80.0) Lymphocytes (%) (Auto) 6.5 % (10.0-50.0) Monocytes (%) (Auto) 1.1 % (0.0-12.0) Eosinophils (%) (Auto) 0.2 % (0.0-7.0) Basophils (%) (Auto) 0.4 % (0.0-2.0) Neutrophils # (Auto) 6.6 10 ^3/uL (1.6-8.6) Lymphocytes # (Auto) 0.5 10 ^3/uL (0.4-5.4) Monocytes # (Auto) 0.1 10 ^3/uL (0-1.3) Eosinophils # (Auto) 0 10 ^3/uL (0-0.8) Basophils # (Auto) 0 10 ^3/uL (0-0.2) Nucleated Red Blood Cells 0.1 % Sodium Level 139 mmol/L (136-145) Potassium Level 5.1 mmol/L (3.5-5.1) Chloride Level 107 mmol/L (98-107) Carbon Dioxide Level 21 mmol/L (20-31) Anion Gap 11 (5-15) Blood Urea Nitrogen 14 mg/dL (9-23) Creatinine 1.39 mg/dL (0.700-1.30) Glomerular Filtration Rate Calc 55 mL/min (>90) BUN/Creatinine Ratio 10.1 (10.0-20.0) Serum Glucose 263 mg/dL (74-106) Calcium Level 10.1 mg/dL (8.7-10.4) Total Bilirubin 0.3 mg/dL (0.2-1.0) Aspartate Amino Transferase (AST) 19 U/L (13-40) Alanine Aminotransferase (ALT) 30 U/L (7-40) Alkaline Phosphatase 152 U/L (46-116) Total Protein 7.0 g/dL (5.7-8.2) Albumin 4.7 g/dL (3.2-4.8) Other Laboratory Tests 04/07/24 03:39 Brief Hx & Hospital Course: 68-year-old male with a history of COPD chronic respiratory failure hypotension history of pulmonary embolism history of lung cancer status post right lobectomy history of CVA peripheral vascular disease came in for shortness of breaths found to have community-acquired pneumonia treated with azithromycin albuterol Atrovent. Seen by pulmonology Dr. Crawford patient has marginally improved. He uses home oxygen. While awaiting further stabilization and he decided to leave AMA and left AMA. Consequences and complications including possible explained to the patient and he verbalized understanding. He left with his family members. Consults/Reason for consult Pulmonology Dr. Crawford Operations or Procedures None Condition at Discharge: Fair Final Diagnosis/Problems List Possible right lower lobe Pneumonia: Azithromycin consult by Dr. Crawford appreciated * Acute on chronic respiratory failure. * Chronic obstructive pulmonary disease exacerbation. * Questionable pneumonia, gram-positive, gram-negative. * Hypertension. * History of pulmonary embolism. * History of lung cancer, status post lobectomy. * History of cerebrovascular accident. * Peripheral vascular disease. Discharge Disposition: AMA Discharge Instruct/Medications Diet comment: Not applicable Patient left AMA Activity comment: Not applicable Patient left AMA Follow Up/Referral: Not applicable Patient left AMA Medications: Not applicable Patient left AMA 35 (Time taken for discharge summary 35 minutes) Discharge Statement: "Patient was advised to return to the ER or call 911 if any headaches, dizziness, shortness of breath, chest pain, abdominal pain, bleeding, fevers, or worsening of medical condition. Patient was counseled about treatment plan, medications, possible side effects, patientverbalized understanding. All questions were answered to the best of my ability. This discharge took greater then 30 minutes in planning, reviewing documentation, counseling the patient, and discussing with other team members." ASSESSMENT ASSESSMENT Hospital Course Left AMA Assessment Date of Service: Apr 09, 2024 Billing Provider: VALERIO HOLDER MD Common Visit Codes: [id number]/[id number] DISCH DAY >30min VALERIO HOLDER MD Apr 09, 2024 09:29
== END 2024-04-08 12:30 | disposition left against medical advice (07) | DRG 177 ==
LOC: EDUNIT# 18:51 → ER 18:51 → EDBD 18:51 → OVERFLOW 23:00 → TELE-CENTR 04-07 23:43
PROVIDERS: ADMIT Family Medicine; ATTEND Family Medicine
DX: J15.69 Pneumonia due to other Gram-negative bacteria (principal); J96.21 Acute and chronic respiratory failure with hypoxia; J44.1 Chronic obstructive pulmonary disease with (acute) exacerbation; J44.0 Chronic obstructive pulmonary disease with (acute) lower respiratory infection; J98.11 Atelectasis; J15.9 Unspecified bacterial pneumonia; F17.210 Nicotine dependence, cigarettes, uncomplicated; I73.9 Peripheral vascular disease, unspecified; Z53.29 Procedure and treatment not carried out because of patient's decision for other reasons; I10 Essential (primary) hypertension; Z86.73 Personal history of transient ischemic attack (TIA), and cerebral infarction without residual deficits; Z82.49 Family history of ischemic heart disease and other diseases of the circulatory system; Z86.711 Personal history of pulmonary embolism; Z82.0 Family history of epilepsy and other diseases of the nervous system; Z80.42 Family history of malignant neoplasm of prostate; Z99.81 Dependence on supplemental oxygen; Z85.118 Personal history of other malignant neoplasm of bronchus and lung; Z90.2 Acquired absence of lung [part of]; Z79.899 Other long term (current) drug therapy
CPT/HCPCS: 36415; 71045; 80048; 80053; 85025; 93005; 94640; 96374; 99291; G0378; J3490

== ENCOUNTER 2024-06-13 03:28 | Inpatient (IN) | payer MEDICARE, MEDICAID ==
[~2024-06-13] VITALS: Ht 167.6 cm; Wt 64.5 kg
[~2024-06-13 03:28] MED LIST changes: +IPRA0.00
--- NOTE | 2024-06-13 03:42 | ECG ---
[facility] Test Date: 2024-06-13 Test Time: 03:34:59 Pat Name: KAISER BARRERA Department: ED Room: [facility] Gender: M [employer]: NENITA : 1955 Requested By: SUNITHA ROMO Order Number: [id number] Reading MD: Bryan Canela Measurements Intervals [place] Rate: 82 P: 86 MD: 155 QRS: 1 QRSD: 84 T: 87 QT: 396 QTc: 463 Interpretive Statements Sinus rhythm Minimal ST elevation, lateral leads Electronically Signed On 06-14-2024 17:09:23 PDT by Bryan Canela Please click the below link to view image of tracing.
[2024-06-13] MEDS: ALBUTEROL SULF 2.5 MG/0.5ML(0.5%) NEB SOLN NEB ONE (04:11)
[2024-06-13] MEDS: IPRATROPIUM BROM 0.5 MG/2.5ML INH SOL NEB ONE (04:12)
--- NOTE | 2024-06-13 04:14 | ED.PDOC ---
History of Present Illness HPI Comments 68-year-old male came to ER via EMS due to shortness of breath. Patient has history of COPD, states he has been having shortness of breath, progressively worsening with chest tightness and wheezing. Denies any chest pain, palpitations, dizziness, or other associated symptoms at this time. Chief Complaint: Shortness of Breath Time Seen by MD: 03:30 Primary Care Provider: UNKNOWN Reviewed Notes: Nurses Notes, Department Specialist Notes, Medications, Allergies Allergies: Coded Allergies: NO KNOWN ALLERGIES (Unverified , 03/24/22) Home Meds Active Scripts Azithromycin (Zithromax Tri-Bubba) 500 Mg Tab, 500 MG PO DAILY for 3 Days, #3 TAB Prov:BETTE CALLOWAY MD 03/07/24 Albuterol Sulfate (VENTOLIN MDI) 90 Mcg Ih, 90 MCG IN TIDP PRN for 30 Days, #1 INH 2 Refills Prov:BETTE CALLOWAY MD 03/07/24 Prednisone (Prednisone) 20 Mg Tab, 20 MG PO QAM for 5 Days, #10 MG Prov:BETTE CALLOWAY MD 03/07/24 Azithromycin (Zithromax Z-Bubba) 250 Mg Tab, 250 MG PO DAILY for 3 Days, #3 TAB Prov:CLOVER RASMUSSEN RESIDENT 02/03/24 Prednisone (Prednisone) 20 Mg Tab, 20 MG PO BID for 5 Days, #10 MG Prov:CLOVER RASMUSSEN RESIDENT 02/03/24 Methocarbamol (Methocarbamol) 500 Mg Tab, 500 MG PO HS PRN for 7 Days, #7 TAB Prov:IVA MORAN 11/23/23 Pywbfvfdccu-Cwnpbuhvyvao-Ezvfi (Trelegy Ellipta 100-62.5-25 Mcg/INH) 1 Aer Aer, 1 AER IN ONCE for 30 Days, #30 AER Prov:DONG BAKER MD 11/20/23 Albuterol Sulfate (VENTOLIN MDI) 90 Mcg Ih, 90 MCG IN T.i.d. for 15 Days, #1 INH Prov:DAVID EDUARDO MD 09/10/23 Nicotine (Nicoderm 21MG/24HR) 1 Patch Ph, 1 PATCH TOP DAILY, #28 PATCH 1 Refill Prov:KADY SMITH RESIDENT 04/07/23 Amlodipine Besylate (Amlodipine Besylate) 10 Mg Tab, 1 TAB PO DAILY, #90 TAB 1 Refill Prov:VALERIO HOLDER MD 07/17/21 Apixaban [place] (ELIQUIS) 5 Mg Tab, 5 MG PO BID for 90 Days, #180 TAB Prov:DORIS DIAZ MD 06/18/20 Reported Medications Ipratropium-Albuterol (Ipratropium [place]/Albut) 1 Amanda Amanda, PRN for SHORTNESS OF BREATH 04/08/24 Albuterol Sulfate (Albuterol Sulfate Hfa) 108 Mcg/Act Aer, 2 PUFF INH Q6HR 04/07/23 Memantine Hydrochloride (Memantine HCl) 10 Mg Tab, 1 TAB PO BID 04/06/23 Information Source: Patient Mode of Arrival: EMS Severity: Moderate Timing: Hours Duration: Since onset Prehospital treatment: 12 Lead EKG, Breathing Tx, Furnace Feeder, Oxygen Past Medical History PAST MEDICAL HISTORY: Asthma, Cancer, COPD, CVA, HTN, FL, PE Surgical History: Denies all surgeries Family History Family History: Reviewed,noncontributory to illness, Family hx of Cancer Social History Smoker: Cigarettes Alcohol: Denies ETOH Use Drugs: Denies Drug Use Lives In: Home All Other Systems: Reviewed and Negative (Comprehensive systems review obtained and negative except for what is stated in the HPI.) Physical Exam General Appearance: No Apparent Distress, Normal HEENT: Normal ENT Inspection, Pharynx Normal, TMs Normal Neck: Full Range of Motion, Non-Tender, Normal, Normal Inspection Respiratory: Chest Non-Tender, Lungs Clear, No Accessory Muscle Use, No Respiratory Distress, Normal Breath Sounds Cardiovascular: No Edema, No JVD, No Murmur, No Gallop, Normal Peripheral Pulses, Regular Rate/Rhythm Breast Exam: Deferred Gastrointestinal: No Organomegaly, Non Tender, No Pulsatile Mass, Normal Bowel Sounds, Soft Genitalia: Deferred Pelvic: Deferred Rectal: Deferred Extremities: No calf tenderness, Normal capillary refill, Normal inspection, Normal range of motion, Non-tender, No pedal edema Musculoskeletal : Apperance: Normal Neurologic: Alert, energy control officer II-XII nml as Tested, No Motor Deficits, Normal Affect, Normal Mood, No Sensory Deficits Cerebellar Function: Normal Reflexes: Normal Skin: Dry, Normal Color, Warm Lymphatic: No Adenopathy Was a procedure done? Was a procedure done?: No EKG EKG : Pulse Rate (adult): 82 [place]: Normal Cardiac Rhythm: NSR Block: None Hypertrophy: None ST: Normal Differential Dx Considerations may include: URI, PNA, FL, PE, viral syndrome, among others X-Ray, Labs, Meds, VS Vital Signs Date Time Temp Pulse Resp B/P (MAP) Pulse Ox O2 Delivery O2 Flow Rate FiO2 06/13/24 04:14 82 06/13/24 04:13 20 100 Nasal Cannula* 2 28 06/13/24 03:34 98.1 86 25 121/78 (92) 97 98.1 06/13/24 03:34 82 Lab Test 06/13/24 05:13 06/13/24 04:09 Range/Units Troponin I High Sensitivity Pending 4 </=54 ng/L White Blood Count 12.3 H 4.4-10.8 10^3/uL Red Blood Count 5.15 4.5-5.90 10^6/uL Hemoglobin 13.6 13.5-17.5 g/dL Hematocrit 42.9 41.0-53.0 % Mean Corpuscular Volume 83.4 80.0-100.0 fL Mean Corpuscular Hemoglobin 26.4 L 28.0-32.0 pg Mean Corpuscular Hemoglobin Concent 31.6 L 32.0-36.0 g/dL Red Cell Distribution Width 17.5 H 11.8-14.3 % Platelet Count 243 140-450 10^3/uL Mean Platelet Volume 7.7 6.9-10.8 fL Neutrophils (%) (Auto) 73.0 37.0-80.0 % Lymphocytes (%) (Auto) 10.9 10.0-50.0 % Monocytes (%) (Auto) 7.8 0.0-12.0 % Eosinophils (%) (Auto) 7.5 H 0.0-7.0 % Basophils (%) (Auto) 0.8 0.0-2.0 % Neutrophils # (Auto) 9.0 H 1.6-8.6 10 ^3/uL Lymphocytes # (Auto) 1.3 0.4-5.4 10 ^3/uL Monocytes # (Auto) 1.0 0-1.3 10 ^3/uL Eosinophils # (Auto) 0.9 H 0-0.8 10 ^3/uL Basophils # (Auto) 0.1 0-0.2 10 ^3/uL Nucleated Red Blood Cells 0.1 % Sodium Level 142 136-145 mmol/L Potassium Level 4.1 3.5-5.1 mmol/L Chloride Level 110 H 98-107 mmol/L Carbon Dioxide Level 25 20-31 mmol/L Anion Gap 7 5-15 Blood Urea Nitrogen 8 L 9-23 mg/dL Creatinine 0.94 0.700-1.30 mg/dL Glomerular Filtration Rate Calc 88 >90 mL/min BUN/Creatinine Ratio 8.5 L 10.0-20.0 Serum Glucose 92 74-106 mg/dL Calcium Level 9.6 8.7-10.4 mg/dL B-Type Natriuretic Peptide 16.65 0-100 pg/mL Current Medications Medications (Trade) Dose Ordered Sig/Arnaldo Route Start Time Stop Time Status Last Admin Albuterol (Ventolin Medneb) 5 mg ONCE ONCE NEB 06/13/24 04:00 06/13/24 04:01 DC 06/13/24 04:11 Ipratropium [place] (Atrovent Medneb) 0.5 mg ONCE ONCE NEB 06/13/24 04:00 06/13/24 04:01 DC 06/13/24 04:12 Time of 1ST Reevaluation: 04:00 Reevaluation 1ST: Unchanged Patient Education/Counseling: Diagnosis, Treatment Family Education/Counseling: No Family Present Departure 1 Departure Time of Disposition: 05:26 (Patient presented with acute shortness of breath concerning for acute on chronic COPD Exacerbation, Pneumonia, ACS, CHF, Pneumothorax. Less likely PE, Dissection. Data: 1. I ordered and reviewed the result of at least 3 labs including a CBC, BMP, and Troponin. 2. I independently interpreted the following tests: Chest X-ray shows chronic lung disease .Risk: This patient has a high risk of morbidity due to further diagnostic testing or treatment and may suffer from respiratory or cardiac etiology . Workup reveals a likely COPD Exacerbation and patient should be admitted for further workup. and possible expert consultation.) Impression: Primary Impression: Acute and chronic respiratory failure with hypoxia Additional Impressions: COPD with acute exacerbation Shortness of breath Disposition: ADMITTED INPATIENT Admit to: Med Surg Condition: Serious Critical Care Note Critical Care Time?: Yes Critical care comment: Acute shortness of breath Authorized and Performed by: Sunitha Mcgowan MD Total critical care time: Approximately 37 minutes Due to a high probability of clinically significant, life threatening deterioration, the patient required my highest level of preparedness to intervene emergently and I personally spent this critical care time directly and personally managing the patient. This critical care time included obtaining a history; examining the patient; pulse oximetry; ordering and review of studies; arranging urgent treatment with development of a management plan; evaluation of patient's response to treatment; frequent reassessment; and, discussions with other providers. This critical care time was performed to assess and manage the high probability of imminent, life-threatening deterioration that could result in multi-organ failure. It was exclusive of separately billable procedures and treating other patients and teaching time. Please see my other sections and the rest of the note for further information on patient assessment and treatment. Stability Stability form required: No Heart Score Heart Score: Heart Score Response (Comments) Value History Moderate Suspicious 1 EKG Normal 0 Age >65 2 Risk Factors >3 or Hx ASHD 2 Troponin 1-2 x's Normal limit 1 Total 6 I personally scribed for SUNITHA MCGOWAN MD ([email or web address]) on 06/13/24 at 04:14. Electronically submitted by Fermín Mathis ([email or web address]). SUNTIHA MCGOWAN MD Jun 13, 2024 04:14
[2024-06-13 04:21] LABS: Basophils # (auto) 0.1 10 ^3/uL (0-0.2); Eosinophils # (auto) 0.9 10 ^3/uL (0-0.8); Hemoglobin 13.6 g/dL (13.5-17.5); Lymphocytes # (auto) 1.3 10 ^3/uL (0.4-5.4)
[2024-06-13 04:24] LABS: Basophils % (auto) 0.8 % (0.0-2.0); Eosinophils % (auto) 7.5 % (0.0-7.0); Hematocrit 42.9 % (41.0-53.0); Lymphocytes % (auto) 10.9 % (10.0-50.0); Mean Corpuscular Hemoglobin 26.4 pg (28.0-32.0); Mean Corpuscular Hgb Conc. 31.6 g/dL (32.0-36.0); Mean Corpuscular Volume 83.4 fL (80.0-100.0); Monocytes % (auto) 7.8 % (0.0-12.0); Nucleated Red Blood Cells % 0.1 %; Platelet Count (auto) 243 10^3/uL (140-450); Red Blood Cells 5.15 10^6/uL (4.5-5.90); Red Cell Distribution Width 17.5 % (11.8-14.3); White Blood Cell 12.3 10^3/uL (4.4-10.8)
[2024-06-13 04:51] LABS: Potassium 4.1 mmol/L (3.5-5.1); Sodium 142 mmol/L (136-145)
[2024-06-13 04:52] LABS: Anion Gap 7 (5-15); Calcium 9.6 mg/dL (8.7-10.4); Carbon Dioxide 25 mmol/L (20-31)
[2024-06-13 04:57] LABS: BUN/Creatinine Ratio 8.5 (10.0-20.0); Blood Urea Nitrogen 8 mg/dL (9-23); Chloride 110 mmol/L (98-107); Glucose 92 mg/dL (74-106)
[2024-06-13] MEDS: DexAMETHasone SOD PHOS 10MG/1ML VIAL INJ IV ONE (05:30)
[2024-06-13] MEDS: AZITHROMYCIN 250 MG TAB PO ONE (05:30)
--- NOTE | 2024-06-13 06:23 | DVH ---
EXAM: XR Chest, 1 View CLINICAL INDICATION: sob TECHNIQUE: Frontal view of the chest. COMPARISON: XY CHEST PORTABLE on DOS: 04/06/24, XY CHEST PORTABLE on DOS: 03/07/24, XY CHEST PORTABLE on DOS: 03/04/24, XY CHEST PORTABLE on DOS: 01/31/24, XY CHEST PORTABLE on DOS: 11/28/23 FINDINGS: LUNGS AND PLEURAL SPACES: Unremarkable. No consolidation. No pneumothorax. HEART: Unremarkable. No cardiomegaly. MEDIASTINUM: Unremarkable. Normal mediastinal contour. BONES/JOINTS: Unremarkable. No acute fracture. OTHER FINDINGS: . None. IMPRESSION: No acute cardiopulmonary process.
[2024-06-13] MEDS ORDERED: ONDANSETRON HCL 4 MG/2 ML VIAL IV PRN (12:45)
[2024-06-13] MEDS ORDERED: MORPHINE SULFATE INJ 2 MG/ml SYRG IV PRN (12:45)
[2024-06-13] MEDS ORDERED: DOCUSATE SOD 100 MG CAP PO PRN (12:45)
[2024-06-13] MEDS ORDERED: hydrALAZINE HCL 20 MG/ML VL IV PRN (12:45)
[2024-06-13] MEDS ORDERED: NITROGLYCERIN 0.4 MG SL TAB SL PRN (12:45)
[2024-06-13] MEDS ORDERED: ACETAMINOPHEN 325 MG TAB PO PRN (12:45)
--- NOTE | 2024-06-13 12:55 | DVHHP2 ---
History of Present Illness Reason for Visit: COPD exacerbation History of Present Illness 68-year-old male came to the ER via EMS due to shortness of breath, patient has history COPD and has been having shortness of breath, chest tightness and wheezing. He denies chest pain, palpitation, dizziness, no other symptoms at this time. Patient will be admitted to med/surgical. Past Medical History COPD, CHF, [place], PE, CVA, hypertension, cancer, asthma Past Surgical History Denies Family History Family history of cancer Smoke: <1 pack per day ALCOHOL: none Drugs: None Lives: with Family Review of Systems Constitutional: No: Fever, Chills, Sweats, Weakness, Malaise, Other Eyes: No: Pain, Vision change, Conjunctivae inflammation, Eyelid inflammation, Other, Redness ENT: No: Ear pain, Ear discharge, Nose pain, Nose discharge, Nose congestion, Mouth pain, Mouth swelling, Throat pain, Throat swelling, Other Respiratory: Shortness of breath, Pleuritic Pain; No: Cough, Dry, SOB with excertion, Wheezing, Hemoptysis, Sputum, Wheezing, Other Cardiovascular: No: Chest Pain, Palpitations, Orthopnea, Paroxysmal Noc. Dyspnea, Edema, Lt Headedness, Other Gastrointestinal: No: Nausea, Vomiting, Abdominal Pain, Diarrhea, Constipation, Melena, Hematochezia, Other Genitourinary: No Dysuria, No Frequency, No Incontinence, No Hematuria, No Retention, No Other Musculoskeletal: No: other, neck pain, shoulder pain, arm pain, back pain, hand pain, leg pain, foot pain Skin: No: Rash, Lesions, Jaundice, Bruising, Other Neurological: No: Weakness, Numbness, Incoordination, Change in speech, Confusion, Seizures, Other Allergies: Coded Allergies: NO KNOWN ALLERGIES (Unverified , 03/24/22) Medications Current Medications Medications Dose Ordered Sig/Arnaldo Route Start Time Stop Time Status Last Admin Dose Admin Ondansetron HCl 4 mg Q4HP PRN IV 06/13/24 12:45 Docusate Sodium 100 mg BIDPRN PRN PO 06/13/24 12:45 Acetaminophen 650 mg Q6HP PRN PO 06/13/24 12:45 Nitroglycerin 0.4 mg Q5MINP PRN SL 06/13/24 12:45 Morphine Sulfate 2 mg Q30M PRN IV 06/13/24 12:45 Methylprednisolone Sodium Succinate 40 mg BID IV 06/13/24 22:00 UNV Ipratropium [place] 0.5 mg Q4HR NEB 06/13/24 14:00 UNV Albuterol 2.5 mg Q4HR NEB 06/13/24 14:00 UNV Budesonide 0.5 mg BID NEB 06/13/24 22:00 UNV Hydralazine HCl 10 mg Q6HP PRN IV 06/13/24 12:45 UNV Exam Vital Signs Vital Signs Date Time Temp Pulse Resp B/P (MAP) Pulse Ox O2 Delivery O2 Flow Rate FiO2 06/13/24 12:34 83 20 140/74 (96) 94 06/13/24 08:01 98.4 98.4 06/13/24 08:01 Room Air 06/13/24 04:13 2 28 General Appearance: Alert, Oriented X3, Cooperative, No acute distress HEENT: Atraumatic, PERRLA, EOMI, Mucous membr. moist/pink Respiratory: Normal air movement, Other (Scattered wheezes bilaterally, dimin ished breath sounds in the lower bases) Cardiovascular: Regular rate, Normal S1, Normal S2, No murmurs Abdominal: Normal bowel sounds, Soft, No tenderness, No hepatospenomegaly Extremities: No clubbing, No cyanosis, No edema, Normal pulses, No tenderness/swelling Skin: No rashes, No breakdown, No significant lesion Neuro: Normal gait, Normal speech, Strength at 5/5 X4 ext, Normal tone, Sensation intact, Cranial nerves 3-12 NL, Reflexes 2+ Psych/Mental Status: Mental status NL, Mood NL Labs/Xrays Labs and imaging reviewed Labs Test 06/13/24 05:13 06/13/24 04:09 Range/Units Troponin I High Sensitivity 4 </=54 ng/L White Blood Count 12.3 H 4.4-10.8 10^3/uL Red Blood Count 5.15 4.5-5.90 10^6/uL Hemoglobin 13.6 13.5-17.5 g/dL Hematocrit 42.9 41.0-53.0 % Mean Corpuscular Volume 83.4 80.0-100.0 fL Mean Corpuscular Hemoglobin 26.4 L 28.0-32.0 pg Mean Corpuscular Hemoglobin Concent 31.6 L 32.0-36.0 g/dL Red Cell Distribution Width 17.5 H 11.8-14.3 % Platelet Count 243 140-450 10^3/uL Mean Platelet Volume 7.7 6.9-10.8 fL Neutrophils (%) (Auto) 73.0 37.0-80.0 % Lymphocytes (%) (Auto) 10.9 10.0-50.0 % Monocytes (%) (Auto) 7.8 0.0-12.0 % Eosinophils (%) (Auto) 7.5 H 0.0-7.0 % Basophils (%) (Auto) 0.8 0.0-2.0 % Neutrophils # (Auto) 9.0 H 1.6-8.6 10 ^3/uL Lymphocytes # (Auto) 1.3 0.4-5.4 10 ^3/uL Monocytes # (Auto) 1.0 0-1.3 10 ^3/uL Eosinophils # (Auto) 0.9 H 0-0.8 10 ^3/uL Basophils # (Auto) 0.1 0-0.2 10 ^3/uL Nucleated Red Blood Cells 0.1 % Sodium Level 142 136-145 mmol/L Potassium Level 4.1 3.5-5.1 mmol/L Chloride Level 110 H 98-107 mmol/L Carbon Dioxide Level 25 20-31 mmol/L Anion Gap 7 5-15 Blood Urea Nitrogen 8 L 9-23 mg/dL Creatinine 0.94 0.700-1.30 mg/dL Glomerular Filtration Rate Calc 88 >90 mL/min BUN/Creatinine Ratio 8.5 L 10.0-20.0 Serum Glucose 92 74-106 mg/dL Calcium Level 9.6 8.7-10.4 mg/dL B-Type Natriuretic Peptide 16.65 0-100 pg/mL Assessment/Plan Assessment/Plan COPD exacerbation History of CHF History of hypertension Nicotine dependence PE history Acute on chronic hypoxic respiratory failure Admit to medical/surgical On 2 L nasal cannula-keep SpO2 greater than 90% Cardiac diet Ipratropium/albuterol/budesonide q.4 hours Steroids given GI prophylaxis not indicated Resume Eliquis Resume home amlodipine/hydralazine IV p.r.n. Discussed smoking cessation with patient for at least 10 minutes at the bedside, patient declines nicotine patch. Plan discussed with: Patient My Orders Orders - ANN-MARIE JAEGER Procedure Category Date Status Time Admit ADMIT 06/13/24 Transmitted 12:36 Allergies LINDSAY 06/13/24 In Process 12:36 Code Status CODE 06/13/24 Transmitted 12:36 Oxygen Per Hour RT 06/13/24 Transmitted 12:36 Ondansetron Hcl PHA 06/13/24 In Process (Zofran) 12:45 Docusate Sodium PHA 06/13/24 In Process Capsule (Colace 12:45 Complete Blood Count LAB 06/14/24 Verified 04:00 Comprehensive LAB 06/14/24 Verified Metabolic Panel 04:00 Cardiac DIET 06/13/24 Transmitted Diet-2gna,Lofat,Lochol Lunch Condition: Fair LINDSAY 06/13/24 In Process 12:36 Acetaminophen Tablet PHA 06/13/24 In Process (Tylenol Tablet) 12:45 BRP LINDSAY 06/13/24 In Process 12:36 Nitroglycerin PHA 06/13/24 In Process Sublingual (Ntrostat 12:45 Morphine Sulfate PHA 06/13/24 In Process Injection 12:45 Stat Ekg For Chest LINDSAY 06/13/24 In Process Pain 12:36 Notify Md Of Changes LINDSAY 06/13/24 In Process From Base 12:36 Air Traffic Control Supervisor For LINDSAY 06/13/24 In Process 24 Hours 12:36 Emergency Dysrhythmia LINDSAY 06/13/24 In Process Protocol 12:36 Rhythm Strips Once LINDSAY 06/13/24 In Process Every Shift 12:36 Oxygen By Nasal RT 06/13/24 Transmitted Cannula 12:36 Methylprednisolone PHA 06/13/24 Logged Sod Succ (Solu Medrol 22:00 Ipratropium Medneb PHA 06/13/24 Logged (Atrovent Medneb) 14:00 Albuterol Medneb PHA 06/13/24 Logged (Ventolin Medneb) 14:00 Budesonide PHA 06/13/24 Logged (Inhalation) 22:00 Hydralazine Injection PHA 06/13/24 Logged (Apresoline Inject 12:45 Date of Service: Jun 13, 2024 Billing Provider: ANN-MARIE JAEGER Common Visit Codes: [id number] INP/OBS CARE (HIGH) ANN-MARIE JAEGER Jun 13, 2024 12:55
[2024-06-13 13:37] VITALS: BP 140/74; PULSE 83; RESP 20; TEMP 98.4; O2SAT 94
[2024-06-13 14:24] VITALS: PULSE 87; RESP 18; O2SAT 94; O2SAT 97
[2024-06-13] MEDS: IPRATROPIUM BROM 0.5 MG/2.5ML INH SOL NEB SCH (14:24)
[2024-06-13] MEDS: ALBUTEROL SULF 2.5 MG/0.5ML(0.5%) NEB SOLN NEB SCH (14:24)
[2024-06-13 14:31] VITALS: PULSE 87; RESP 18; O2SAT 99
[2024-06-13] MEDS: BUDESONIDE (INHALATION) 0.5 MG/2 ML NEB NEB SCH (18:26)
[2024-06-13 22:26] VITALS: BP 135/78; PULSE 75; RESP 20; TEMP 97.6; O2SAT 100
[2024-06-13] MEDS: APIXABAN 5 MG TAB PO SCH (22:47)
[2024-06-13] MEDS: methylPREDNISolone SOD SUCC 40 MG/ML VL IV SCH (22:47)
[2024-06-13 23:24] VITALS: BP 133/78; PULSE 82; RESP 16; TEMP 98.2; O2SAT 100
[2024-06-14] VITALS (20 sets, daily range): BP systolic 113–132; BP diastolic 66–73; PULSE 70–90; RESP 16–20; TEMP 98–98.8; O2SAT 91–100
[2024-06-14] MEDS: amLODIPine BESYLATE 5 MG TAB PO SCH (09:41)
[2024-06-14 11:01] LABS: Basophils # (auto) 0 10 ^3/uL (0-0.2); Basophils % (auto) 0.4 % (0.0-2.0); Eosinophils # (auto) 0 10 ^3/uL (0-0.8); Eosinophils % (auto) 0.1 % (0.0-7.0); Hematocrit 43.2 % (41.0-53.0); Hemoglobin 14.1 g/dL (13.5-17.5); Lymphocytes # (auto) 0.6 10 ^3/uL (0.4-5.4); Mean Corpuscular Hgb Conc. 32.5 g/dL (32.0-36.0); Mean Corpuscular Volume 82.9 fL (80.0-100.0); Monocytes # (auto) 0.2 10 ^3/uL (0-1.3); Monocytes % (auto) 2.7 % (0.0-12.0); Neutrophils # (auto) 6.2 10 ^3/uL (1.6-8.6); Neutrophils % (auto) 87.8 % (37.0-80.0); Nucleated Red Blood Cells % 0.1 %; Platelet Count (auto) 251 10^3/uL (140-450); Red Blood Cells 5.22 10^6/uL (4.5-5.90); Red Cell Distribution Width 17.5 % (11.8-14.3); White Blood Cell 7.1 10^3/uL (4.4-10.8)
[2024-06-14 11:03] LABS: Alanine Aminotransferase 17 U/L (7-40); Anion Gap 10 (5-15); BUN/Creatinine Ratio 11.1 (10.0-20.0); Blood Urea Nitrogen 12 mg/dL (9-23); Calcium 10.2 mg/dL (8.7-10.4); Carbon Dioxide 25 mmol/L (20-31); Total Protein 6.9 g/dL (5.7-8.2)
[2024-06-14 11:04] LABS: Albumin 4.4 g/dL (3.2-4.8); Alkaline Phosphatase 137 U/L (46-116); Aspartate Aminotransferase 14 U/L (13-40); Chloride 110 mmol/L (98-107); Glucose 223 mg/dL (74-106); Potassium 5.2 mmol/L (3.5-5.1); Sodium 145 mmol/L (136-145)
[2024-06-14 11:05] LABS: Bilirubin, Total 0.4 mg/dL (0.2-1.0)
--- NOTE | 2024-06-14 13:23 | DVHPN2 ---
Reviewed: Care Plan, H&P, Labs, Medications, Previous Orders, Radiology Changes from previous H/P or p: No Changes Eyes: No Pain, No Vision change, No Conjunctivae inflammation, No Eyelid inflammation, No Other, No Redness ENT: No Ear pain, No Ear discharge, No Nose pain, No Nose discharge, No Nose congestion, No Mouth pain, No Mouth swelling, No Throat pain, No Throat swelling, No Other Cardiovascular: No Chest Pain, No Palpitations, No Orthopnea, No Paroxysmal Noc. Dyspnea, No Edema, No Lt Headedness, No Other Respiratory: No Cough, No Dry; Shortness of breath; No SOB with excertion, No Wheezing, No Hemoptysis; Pleuritic Pain; No Sputum, No Other Gastrointestinal: No Nausea, No Vomiting, No Abdominal Pain, No Diarrhea, No Constipation, No Melena, No Hematochezia, No Other Genitourinary: No Dysuria, No Frequency, No Incontinence, No Hematuria, No Retention, No Other Musculoskeletal: No other, No neck pain, No shoulder pain, No arm pain, No back pain, No hand pain, No leg pain, No foot pain Skin: No Rash, No Lesions, No Jaundice, No Bruising, No Other Objective Vitals Vital Signs Date Time Temp Pulse Resp B/P (MAP) Pulse Ox O2 Delivery O2 Flow Rate FiO2 06/14/24 10:00 95 Nasal Cannula* 2 28 06/14/24 09:41 120/67 06/14/24 09:21 83 18 06/14/24 09:00 98.2 98.2 Intake/Output Intake and Output 06/14/24 07:00 Intake Total 240 ml Output Total 250 ml Balance -10 ml Intake Oral 240 ml Output Urine Total 250 ml Medications Current Medications Medications Dose Ordered Sig/Arnaldo Route Start Time Stop Time Status Last Admin Dose Admin Ondansetron HCl 4 mg Q4HP PRN IV 06/13/24 12:45 Docusate Sodium 100 mg BIDPRN PRN PO 06/13/24 12:45 Acetaminophen 650 mg Q6HP PRN PO 06/13/24 12:45 Nitroglycerin 0.4 mg Q5MINP PRN SL 06/13/24 12:45 Morphine Sulfate 2 mg Q30M PRN IV 06/13/24 12:45 Methylprednisolone Sodium Succinate 40 mg BID IV 06/13/24 22:00 06/14/24 09:40 40 MG Ipratropium [place] 0.5 mg Q4HR NEB 06/13/24 14:00 06/14/24 09:16 0.5 MG Albuterol 2.5 mg Q4HR NEB 06/13/24 14:00 06/14/24 09:16 2.5 MG Budesonide 0.5 mg BID NEB 06/13/24 22:00 06/14/24 06:29 0.5 MG Hydralazine HCl 10 mg Q6HP PRN IV 06/13/24 12:45 Apixaban 5 mg BID PO 06/13/24 22:00 06/14/24 09:41 5 MG Amlodipine Besylate 10 mg DAILY PO 06/14/24 10:00 06/14/24 09:41 10 MG Laboratory Results Laboratory Tests 06/14/24 09:39 Chemistry Test 06/14/24 09:39 Albumin 4.4 g/dL (3.2-4.8) Calcium Level 10.2 mg/dL (8.7-10.4) Total Protein 6.9 g/dL (5.7-8.2) LFT Test 06/14/24 09:39 Alanine Aminotransferase (ALT) 17 U/L (7-40) Alkaline Phosphatase 137 U/L (46-116) H Aspartate Amino Transferase (AST) 14 U/L (13-40) Total Bilirubin 0.4 mg/dL (0.2-1.0) Labs and/or images reviewed: Labs reviewed by me, Image(s) reviewed by me Assessment/Plan Assessment/Plan Acute Hypoxic respiratory failure: Oxygen by nasal cannula Possible community-acquired pneumonia: Rocephin azithromycin Acute COPD exacerbation: Albuterol Atrovent Solu-Medrol Acute on chronic congestive heart failure History of [place] History of PE History of CVA Hypertension History of lung cancer status post right lower lobectomy Asthma Chronic current smoker: Counseling Time spent 70 minutes Advanced care planning time 20 minutes Patient is full code Plan discussed with: Patient My Orders Orders - VALERIO HOLDER MD Procedure Category Date Status Time Covid19 Antigen Freda LAB 06/14/24 Transmitted Rapid Influenza A&B LAB 06/14/24 Transmitted 13:16 Ceftriaxone Ivpb PHA 06/15/24 Transmitted Rocephin 09:00 Ceftriaxone Ivpb PHA 06/14/24 Transmitted Rocephin 13:30 Azithromycin 500mg/ PHA 06/15/24 Transmitted 250ml (Zithromax 50 10:00 Azithromycin 500mg/ PHA 06/14/24 Transmitted 250ml (Zithromax 50 13:30 Date of Service: Jun 14, 2024 Billing Provider: VALERIO HOLDER MD Common Visit Codes: [id number] CARE 30-74 MIN VALERIO HOLDER MD Jun 14, 2024 13:23
[2024-06-14] MEDS: cefTRIAXone 1GM/50ML D5W 50 ML IV ONE (13:33)
[2024-06-14] MEDS: AZITHROMYCIN 500MG/ 250ML 250 ML IV ONE (14:33)
[2024-06-14 15:15] LABS: COVID19 ANTIGEN SOFIA FIA NEGATIVE (NEGATIVE); Rapid Influenza A Negative (Negative); Rapid Influenza B Negative (Negative)
[2024-06-15] VITALS (20 sets, daily range): BP systolic 110–133; BP diastolic 59–75; PULSE 73–104; RESP 16–20; TEMP 97.6–98.8; O2SAT 91–100
[2024-06-15] MEDS: ALBUTEROL SULF 2.5 MG/0.5ML(0.5%) NEB SOLN NEB PRN (09:22)
--- NOTE | 2024-06-15 09:26 | DVH ---
CHEST RADIOGRAPH Indication: SOB, aspiration Technique: Single frontal view of the chest was obtained COMPARISON: None FINDINGS: Lines and Tubes: None Lungs: Clear Pleura: No effusion. No pneumothorax. Cardiomediastinal contours: Unremarkable Bones: Unremarkable IMPRESSION: No acute disease.
--- NOTE | 2024-06-15 10:11 | DVHPN2 ---
Reviewed: Care Plan, H&P, Labs, Medications, Previous Orders, Radiology Changes from previous H/P or p: No Changes Eyes: No Pain, No Vision change, No Conjunctivae inflammation, No Eyelid inflammation, No Other, No Redness ENT: No Ear pain, No Ear discharge, No Nose pain, No Nose discharge, No Nose congestion, No Mouth pain, No Mouth swelling, No Throat pain, No Throat swelling, No Other Cardiovascular: No Chest Pain, No Palpitations, No Orthopnea, No Paroxysmal Noc. Dyspnea, No Edema, No Lt Headedness, No Other Respiratory: No Cough, No Dry; Shortness of breath; No SOB with excertion, No Wheezing, No Hemoptysis; Pleuritic Pain; No Sputum, No Other Gastrointestinal: No Nausea, No Vomiting, No Abdominal Pain, No Diarrhea, No Constipation, No Melena, No Hematochezia, No Other Genitourinary: No Dysuria, No Frequency, No Incontinence, No Hematuria, No Retention, No Other Musculoskeletal: No other, No neck pain, No shoulder pain, No arm pain, No back pain, No hand pain, No leg pain, No foot pain Skin: No Rash, No Lesions, No Jaundice, No Bruising, No Other Objective Vitals Vital Signs Date Time Temp Pulse Resp B/P (MAP) Pulse Ox O2 Delivery O2 Flow Rate FiO2 06/15/24 09:46 87 20 100 06/15/24 09:36 Nasal Cannula 2.0 06/15/24 09:36 28 06/15/24 08:46 97.9 133/73 (93) 97.9 Intake/Output Intake and Output 06/15/24 07:00 Intake Total 1698 ml Output Total 1950 ml Balance -252 ml Intake Oral 1398 ml IV Total 300 ml Output Urine Total 1950 ml Medications Current Medications Medications Dose Ordered Sig/Arnaldo Route Start Time Stop Time Status Last Admin Dose Admin Ondansetron HCl 4 mg Q4HP PRN IV 06/13/24 12:45 Docusate Sodium 100 mg BIDPRN PRN PO 06/13/24 12:45 Acetaminophen 650 mg Q6HP PRN PO 06/13/24 12:45 Nitroglycerin 0.4 mg Q5MINP PRN SL 06/13/24 12:45 Morphine Sulfate 2 mg Q30M PRN IV 06/13/24 12:45 Methylprednisolone Sodium Succinate 40 mg BID IV 06/13/24 22:00 06/15/24 08:57 40 MG Ipratropium [place] 0.5 mg Q4HR NEB 06/13/24 14:00 06/15/24 09:36 0.5 MG Albuterol 2.5 mg Q4HR NEB 06/13/24 14:00 06/15/24 09:36 2.5 MG Budesonide 0.5 mg BID NEB 06/13/24 22:00 06/15/24 09:36 0.5 MG Hydralazine HCl 10 mg Q6HP PRN IV 06/13/24 12:45 Apixaban 5 mg BID PO 06/13/24 22:00 06/14/24 21:16 5 MG Amlodipine Besylate 10 mg DAILY PO 06/14/24 10:00 06/14/24 09:41 10 MG Ceftriaxone Sodium 50 ml @ 100 mls/hr DAILY@09 IV 06/15/24 09:00 Azithromycin 250 ml @ 125 mls/hr DAILY IV 06/15/24 10:00 Albuterol 2.5 mg Q3HPRN PRN NEB 06/15/24 09:00 06/15/24 09:22 2.5 MG Laboratory Results Laboratory Tests 06/14/24 09:39 Labs and/or images reviewed: Labs reviewed by me, Image(s) reviewed by me Assessment/Plan Assessment/Plan Acute Hypoxic respiratory failure: Oxygen by nasal cannula Possible community-acquired pneumonia: Rocephin azithromycin Acute COPD exacerbation: Albuterol Atrovent Solu-Medrol Acute on chronic congestive heart failure History of [place] History of PE History of CVA Hypertension Acute hyperkalemia potassium 5.2, will repeat basic metabolic panel History of lung cancer status post right lower lobectomy Asthma Chronic current smoker: Counseling Time spent 70 minutes Advanced care planning time 20 minutes Patient is full code Plan discussed with: Patient My Orders Orders - VALERIO HOLDER MD Procedure Category Date Status Time Ceftriaxone 1gm/50ml PHA 06/15/24 In Process D5w (Rocephin) 09:00 Azithromycin 500mg/ PHA 06/15/24 In Process 250ml (Zithromax 50 10:00 Chest Portable XY 06/15/24 Resulted 08:46 Albuterol Medneb PHA 06/15/24 In Process (Ventolin Medneb) 09:00 Basic Metabolic Panel LAB 06/15/24 Logged 10:07 Date of Service: June 15, 2024 Billing Provider: VALERIO HOLDER MD Common Visit Codes: [id number] INP/OBS CARE(HIGH) VALERIO HOLDER MD June 15, 2024 10:11
[2024-06-15] MEDS: cefTRIAXone 1GM/50ML D5W 50 ML IV SCH (11:29)
[2024-06-15 12:03] LABS: Potassium 4.3 mmol/L (3.5-5.1); Sodium 144 mmol/L (136-145)
[2024-06-15 12:04] LABS: Anion Gap 8 (5-15); Carbon Dioxide 25 mmol/L (20-31); Chloride 111 mmol/L (98-107)
[2024-06-15 12:10] LABS: BUN/Creatinine Ratio 11.6 (10.0-20.0); Blood Urea Nitrogen 11 mg/dL (9-23)
[2024-06-15 12:15] LABS: Glucose 182 mg/dL (74-106)
[2024-06-15] MEDS: AZITHROMYCIN 500MG/ 250ML 250 ML IV SCH (12:20)
[2024-06-16] VITALS (16 sets, daily range): BP systolic 127–143; BP diastolic 65–76; PULSE 72–85; RESP 17–20; TEMP 36.8; O2SAT 96–100
[2024-06-16] MEDS ORDERED: ALBUAER3 IN (07:44)
[2024-06-16] MEDS ORDERED: AZIT500T66 PO (07:44)
--- NOTE | 2024-06-16 07:45 | DVHPN2 ---
Reviewed: Care Plan, H&P, Labs, Medications, Previous Orders, Radiology Changes from previous H/P or p: No Changes Eyes: No Pain, No Vision change, No Conjunctivae inflammation, No Eyelid inflammation, No Other, No Redness ENT: No Ear pain, No Ear discharge, No Nose pain, No Nose discharge, No Nose congestion, No Mouth pain, No Mouth swelling, No Throat pain, No Throat swelling, No Other Cardiovascular: No Chest Pain, No Palpitations, No Orthopnea, No Paroxysmal Noc. Dyspnea, No Edema, No Lt Headedness, No Other Respiratory: No Cough, No Dry; Shortness of breath; No SOB with excertion, No Wheezing, No Hemoptysis; Pleuritic Pain; No Sputum, No Other Gastrointestinal: No Nausea, No Vomiting, No Abdominal Pain, No Diarrhea, No Constipation, No Melena, No Hematochezia, No Other Genitourinary: No Dysuria, No Frequency, No Incontinence, No Hematuria, No Retention, No Other Musculoskeletal: No other, No neck pain, No shoulder pain, No arm pain, No back pain, No hand pain, No leg pain, No foot pain Skin: No Rash, No Lesions, No Jaundice, No Bruising, No Other Objective Vitals Vital Signs Date Time Temp Pulse Resp B/P (MAP) Pulse Ox O2 Delivery O2 Flow Rate FiO2 06/16/24 07:20 77 18 100 06/16/24 07:12 Nasal Cannula 2.0 06/16/24 07:12 28 06/16/24 05:00 98.3 137/74 (95) 98.3 Intake/Output Intake and Output 06/16/24 07:00 Intake Total 2088 ml Output Total 1200 ml Balance 888 ml Intake Oral 1788 ml IV Total 300 ml Output Urine Total 1200 ml Medications Current Medications Medications Dose Ordered Sig/Arnaldo Route Start Time Stop Time Status Last Admin Dose Admin Ondansetron HCl 4 mg Q4HP PRN IV 06/13/24 12:45 Docusate Sodium 100 mg BIDPRN PRN PO 06/13/24 12:45 Acetaminophen 650 mg Q6HP PRN PO 06/13/24 12:45 Nitroglycerin 0.4 mg Q5MINP PRN SL 06/13/24 12:45 Morphine Sulfate 2 mg Q30M PRN IV 06/13/24 12:45 Methylprednisolone Sodium Succinate 40 mg BID IV 06/13/24 22:00 06/15/24 22:31 40 MG Ipratropium [place] 0.5 mg Q4HR NEB 06/13/24 14:00 06/16/24 07:12 0.5 MG Albuterol 2.5 mg Q4HR NEB 06/13/24 14:00 06/16/24 07:12 2.5 MG Budesonide 0.5 mg BID NEB 06/13/24 22:00 06/16/24 07:13 0.5 MG Hydralazine HCl 10 mg Q6HP PRN IV 06/13/24 12:45 Apixaban 5 mg BID PO 06/13/24 22:00 06/15/24 22:31 5 MG Amlodipine Besylate 10 mg DAILY PO 06/14/24 10:00 06/15/24 11:31 10 MG Ceftriaxone Sodium 50 ml @ 100 mls/hr DAILY@09 IV 06/15/24 09:00 06/15/24 11:29 100 MLS/HR Azithromycin 250 ml @ 125 mls/hr DAILY IV 06/15/24 10:00 06/15/24 12:20 125 MLS/HR Albuterol 2.5 mg Q3HPRN PRN NEB 06/15/24 09:00 06/15/24 09:22 2.5 MG Laboratory Results Laboratory Tests 06/14/24 09:39 06/15/24 11:27 Chemistry Test 06/15/24 11:27 Calcium Level 10.0 mg/dL (8.7-10.4) Labs and/or images reviewed: Labs reviewed by me, Image(s) reviewed by me Assessment/Plan Assessment/Plan Acute Hypoxic respiratory failure: Oxygen by nasal cannula Possible community-acquired pneumonia: Rocephin azithromycin Acute COPD exacerbation: Albuterol Atrovent Solu-Medrol Acute on chronic congestive heart failure History of [place] History of PE History of CVA Hypertension Acute hyperkalemia potassium 5.2, resolved History of lung cancer status post right lower lobectomy Asthma Chronic current smoker: Counseling Patient feels much better and being discharged home Plan discussed with: Patient My Orders Orders - VALERIO HOLDER MD Procedure Category Date Status Time Chest Portable XY 06/15/24 Resulted 08:46 Albuterol Medneb PHA 06/15/24 In Process (Ventolin Medneb) 09:00 Date of Service: June 16, 2024 Billing Provider: VALERIO HOLDER MD Common Visit Codes: [id number] INP/OBS CARE(HIGH) VALERIO HOLDER MD June 16, 2024 07:45
--- NOTE | 2024-06-16 07:49 | DVHDS2 ---
Discharge Summary Date of Admission Jun 13, 2024 at 12:42 Date of Discharge: June 16, 2024 Admitting Diagnosis Shortness of breath Wounds: None Labs/Diagnostic Data: Laboratory Results Test 06/15/24 11:27 06/14/24 14:03 06/14/24 09:39 06/13/24 05:13 Sodium Level 144 mmol/L (136-145) Potassium Level 4.3 mmol/L (3.5-5.1) Chloride Level 111 mmol/L (98-107) Carbon Dioxide Level 25 mmol/L (20-31) Anion Gap 8 (5-15) Blood Urea Nitrogen 11 mg/dL (9-23) Creatinine 0.95 mg/dL (0.700-1.30) Glomerular Filtration Rate Calc 87 mL/min (>90) BUN/Creatinine Ratio 11.6 (10.0-20.0) Serum Glucose 182 mg/dL (74-106) Calcium Level 10.0 mg/dL (8.7-10.4) Influenza Type A Antigen Negative (Negative) Influenza Type B Antigen Negative (Negative) SARS-CoV-2 Antigen (Rapid) Negative (NEGATIVE) White Blood Count 7.1 10^3/uL (4.4-10.8) Red Blood Count 5.22 10^6/uL (4.5-5.90) Hemoglobin 14.1 g/dL (13.5-17.5) Hematocrit 43.2 % (41.0-53.0) Mean Corpuscular Volume 82.9 fL (80.0-100.0) Mean Corpuscular Hemoglobin 27.0 pg (28.0-32.0) Mean Corpuscular Hemoglobin Concent 32.5 g/dL (32.0-36.0) Red Cell Distribution Width 17.5 % (11.8-14.3) Platelet Count 251 10^3/uL (140-450) Mean Platelet Volume 8.2 fL (6.9-10.8) Neutrophils (%) (Auto) 87.8 % (37.0-80.0) Lymphocytes (%) (Auto) 9.0 % (10.0-50.0) Monocytes (%) (Auto) 2.7 % (0.0-12.0) Eosinophils (%) (Auto) 0.1 % (0.0-7.0) Basophils (%) (Auto) 0.4 % (0.0-2.0) Neutrophils # (Auto) 6.2 10 ^3/uL (1.6-8.6) Lymphocytes # (Auto) 0.6 10 ^3/uL (0.4-5.4) Monocytes # (Auto) 0.2 10 ^3/uL (0-1.3) Eosinophils # (Auto) 0 10 ^3/uL (0-0.8) Basophils # (Auto) 0 10 ^3/uL (0-0.2) Nucleated Red Blood Cells 0.1 % Total Bilirubin 0.4 mg/dL (0.2-1.0) Aspartate Amino Transferase (AST) 14 U/L (13-40) Alanine Aminotransferase (ALT) 17 U/L (7-40) Alkaline Phosphatase 137 U/L (46-116) Total Protein 6.9 g/dL (5.7-8.2) Albumin 4.4 g/dL (3.2-4.8) Troponin I High Sensitivity 4 ng/L (</=54) Test 06/13/24 04:09 B-Type Natriuretic Peptide 16.65 pg/mL (0-100) Other Laboratory Tests 06/15/24 11:27 06/14/24 09:39 Brief Hx & Hospital Course: 68-year-old male with a history of COPD on home oxygen [place] PE CVA hypotension history of lung cancer status post right lower lobectomy asthma chronic current smoker came in for shortness of breaths. Admitted treated with albuterol Atrovent med neb treatment and Solu-Medrol. Possible community-acquired pneumonia treated with Rocephin azithromycin. Patient feels better on 2 L of oxygen which is his usual requirement. Discharged home on azithromycin p.o. and Ventolin MDI. Reviewed all other home medications. General condition stable at the time of discharge Consults/Reason for consult None Operations or Procedures None Condition at Discharge: Fair Final Diagnosis/Problems List Acute Hypoxic respiratory failure: Oxygen by nasal cannula Possible community-acquired pneumonia: Rocephin azithromycin Acute COPD exacerbation: Albuterol Atrovent Solu-Medrol Acute on chronic congestive heart failure History of [place] History of PE History of CVA Hypertension Acute hyperkalemia potassium 5.2, resolved History of lung cancer status post right lower lobectomy Asthma Chronic current smoker: Counseling Discharge Disposition: Home Discharge Instruct/Medications Diet: Cardiac 2g Na,low cholest Activity: Light activity Follow Up/Referral: Continue all your previous home medications Follow up with the primary Dr Medications: Azithromycin Coltenolin AMANDA Transmitted to pharmacy Reviewed all other home meds 35 (Time taken for discharge summary 35 minutes) Discharge Statement: "Patient was advised to return to the ER or call 911 if any headaches, dizziness, shortness of breath, chest pain, abdominal pain, bleeding, fevers, or worsening of medical condition. Patient was counseled about treatment plan, medications, possible side effects, patientverbalized understanding. All questions were answered to the best of my ability. This discharge took greater then 30 minutes in planning, reviewing documentation, counseling the patient, and discussing with other team members." ASSESSMENT ASSESSMENT Hospital Course Uneventful Assessment Acute Hypoxic respiratory failure: Oxygen by nasal cannula Possible community-acquired pneumonia: Rocephin azithromycin Acute COPD exacerbation: Albuterol Atrovent Solu-Medrol Acute on chronic congestive heart failure History of [place] History of PE History of CVA Hypertension Acute hyperkalemia potassium 5.2, resolved History of lung cancer status post right lower lobectomy Asthma Chronic current smoker: Counseling Date of Service: June 16, 2024 Billing Provider: VALERIO HOLDER MD Common Visit Codes: [id number] DISCH DAY >30min VALERIO HOLDER MD June 16, 2024 07:49
== END 2024-06-16 20:05 | disposition home or self-care (01) | DRG 177 ==
LOC: EDBD 03:28 → ER 03:28 → OVERFLOW 12:42 → WEST WING 23:24 → CENTRAL 06-15 13:20
PROVIDERS: ADMIT Family Medicine; ATTEND Family Medicine
DX: J15.69 Pneumonia due to other Gram-negative bacteria (principal); I50.31 Acute diastolic (congestive) heart failure; J96.01 Acute respiratory failure with hypoxia; J44.1 Chronic obstructive pulmonary disease with (acute) exacerbation; J44.0 Chronic obstructive pulmonary disease with (acute) lower respiratory infection; J15.9 Unspecified bacterial pneumonia; I11.0 Hypertensive heart disease with heart failure; F17.210 Nicotine dependence, cigarettes, uncomplicated; E87.5 Hyperkalemia; Z20.822 Contact with and (suspected) exposure to COVID-19; Z79.01 Long term (current) use of anticoagulants; Z79.899 Other long term (current) drug therapy; Z80.9 Family history of malignant neoplasm, unspecified; Z86.711 Personal history of pulmonary embolism; Z85.118 Personal history of other malignant neoplasm of bronchus and lung; Z90.2 Acquired absence of lung [part of]; I25.2 Old myocardial infarction; Z86.73 Personal history of transient ischemic attack (TIA), and cerebral infarction without residual deficits; Z71.6 Tobacco abuse counseling; Z99.81 Dependence on supplemental oxygen
CPT/HCPCS: 36415; 71045; 80048; 80053; 83880; 84484; 85025; 87426; 87804; 93005; 94640; 99291; G0378; J1100

== ENCOUNTER 2024-09-05 11:29 | Inpatient (IN) | payer OTHER, MEDICAID ==
[~2024-09-05] VITALS: Ht 165.1 cm; Wt 68.9 kg
[~2024-09-05 11:29] MED LIST changes: +AZIT500T66 PO; -AZITTAB PO; -AZITTAB2 PO; -FLUT1AER3 IN; -METH-1181 PO; -NIC21P TOP; -PRED20TA2 PO
--- NOTE | 2024-09-05 11:47 | ED.PDOC ---
History of Present Illness HPI Comments 69-year-old male brought by paramedics because of shortness a breath. He started to become shortness a breath around 10 :30 a.m. this morning. He is on normally 2 L oxygen. Paramedics stated that his oxygen was 80% 2 L. increased his oxygen content along with breathing treatment which raised his oxygen to 9 3%. He does have a history of COPD CHF coronary artery disease hypertension lung cancer. Patient states that he has stopped smoking several months ago. Denies any other symptoms. Chief Complaint: Shortness of Breath Time Seen by MD: 11:33 Primary Care Provider: UNKNOWN Reviewed Notes: Nurses Notes, Medications, Allergies Allergies: Coded Allergies: NO KNOWN ALLERGIES (Unverified , 03/24/22) Home Meds Active Scripts Albuterol Sulfate (VENTOLIN MDI) 90 Mcg Ih, 90 MCG IN QID PRN, #1 INH Prov:VALERIO HOLDER MD 06/16/24 Azithromycin (Azithromycin) 500 Mg Tab, 1 TAB PO DAILY, #7 TAB Prov:VALERIO HOLDER MD 06/16/24 Amlodipine Besylate (Amlodipine Besylate) 10 Mg Tab, 1 TAB PO DAILY, #90 TAB 1 Refill Prov:VALERIO HOLDER MD 07/17/21 Apixaban Base (ELIQUIS) 5 Mg Tab, 5 MG PO BID for 90 Days, #180 TAB Prov:DORIS DIAZ MD 06/18/20 Reported Medications Ipratropium-Albuterol (Ipratropium [place]/Albut) 1 Amanda Amanda, PRN for SHORTNESS OF BREATH 04/08/24 Albuterol Sulfate (Albuterol Sulfate Hfa) 108 Mcg/Act Aer, 2 PUFF INH Q6HR 04/07/23 Memantine Hydrochloride (Memantine HCl) 10 Mg Tab, 1 TAB PO BID 04/06/23 Information Source: Patient, Emergency Med Personnel Mode of Arrival: EMS Severity: Moderate Timing: Minutes Duration: Since onset Past Medical History PAST MEDICAL HISTORY: Asthma, Cancer, COPD, CVA, HTN, [place], PE Surgical History: Denies all surgeries Family History Family History: Reviewed,noncontributory to illness, Family hx of Cancer Social History Smoker: Cigarettes Alcohol: Denies ETOH Use Drugs: Denies Drug Use Lives In: Home Constitutional: denies: chills, diaphoresis, fatigue, fever, malaise, sweats, weakness, others EENTM: denies: blurred vision, double vision, ear bleeding, ear discharge, ear drainage, ear pain, ear ringing, eye pain, eye redness, hearing loss, mouth pain, mouth swelling, nasal discharge, nose bleeding, nose congestion, nose pain, photophobia, tearing, throat pain, throat swelling, voice changes, others Respiratory: reports: shortness of breath; denies: cough, hemoptysis, orthopnea, SOB at rest, SOB with excertion, stridor, wheezing, others Cardiovascular: denies: chest pain, dizzy spells, diaphoresis, Dyspnea on exertion, edema, irregular heart beat, left arm pain, lightheadedness, palpitations, PND, syncope, others Gastrointestinal: denies: abdomen distended, abdominal pain, blood streaked bowels, constipated, diarrhea, dysphagia, difficulty swallowing, hematemesis, melena, nausea, poor appetite, poor fluid intake, rectal bleeding, rectal pain, vomiting, others Genitourinary: denies: burning, dysuria, flank pain, frequency, hematuria, incontinence, penile discharge, penile sore, pain, testicle pain, testicle swelling, urgency, others Neurological: denies: dizziness, fainting, headache, left sided numbness, left sided weakness, numbness, paresthesia, pre-existing deficit, right sided numbness, right sided weakness, seizure, speech problems, tingling, tremors, weakness, others Musculoskeletal: denies: back pain, gout, joint pain, joint swelling, muscle pain, muscle stiffness, neck pain, others Integumetry: denies: bruises, change in color, change in hair/nails, dryness, laceration, lesions, lumps, rash, wounds, others Allergic/Immunocompromised: denies: Difficulty Healing, Frequent Infections, Hives, Itching, others Hematologic/Lymphatic: denies: anemia, blood clots, easy bleeding, easy bruising, swollen glands, others Endocrine: denies: excessive hunger, excessive sweating, excessive thirst, excessive urination, flushing, intolerance to cold, intolerance to heat, unexplained weight gain, unexplained weight loss, others Psychiatric: denies: anxiety, bipolar disorder, depression, hopeless, panic disorder, schizophrenia, sleepless, suicidal, others Physical Exam General Appearance: Moderate Distress HEENT: Normal ENT Inspection, Pharynx Normal, TMs Normal Neck: Full Range of Motion, Non-Tender, Normal, Normal Inspection Respiratory: Accessory Muscle Use, Respiratory Distress, Wheezing Cardiovascular: No Edema, No JVD, No Murmur, No Gallop, Normal Peripheral Pulses, Regular Rate/Rhythm Breast Exam: Deferred Gastrointestinal: No Organomegaly, Non Tender, No Pulsatile Mass, Normal Bowel Sounds, Soft Genitalia: Deferred Pelvic: Deferred Rectal: Deferred Extremities: No calf tenderness, Normal inspection, Normal range of motion, Non-tender, No pedal edema Musculoskeletal : Apperance: Normal Neurologic: Alert Cerebellar Function: NOT DONE Reflexes: NOT DONE Skin: Dry, Normal Color, Warm Peripheral Pulses: 3+ Radial (R), 3+ Radial (L) Lymphatic: No Adenopathy Was a procedure done? Was a procedure done?: No EKG EKG : Pulse Rate (adult): 98 Cardiac Rhythm: ST Differential Dx Considerations may include: COPD Electrolyte imbalance X-Ray, Labs, Meds, VS Vital Signs Date Time Temp Pulse Resp B/P (MAP) Pulse Ox O2 Delivery O2 Flow Rate FiO2 09/05/24 13:49 97.8 86 17 136/53 (80) 100 97.8 09/05/24 13:44 Nasal Cannula* 4 36 09/05/24 12:04 20 4 Nasal Cannula* 4 36 09/05/24 11:47 98 09/05/24 11:42 98 09/05/24 11:35 24 99 Room Air* 0 21 09/05/24 11:35 98.5 110 24 161/99 (119) 99 98.5 Lab Test 09/05/24 14:13 09/05/24 12:05 Range/Units Lactic Acid Level 2.4 *H 2.2 *H 0.4-2.0 mmol/L White Blood Count 25.9 H 4.4-10.8 10^3/uL Red Blood Count 5.33 4.5-5.90 10^6/uL Hemoglobin 14.2 13.5-17.5 g/dL Hematocrit 43.5 41.0-53.0 % Mean Corpuscular Volume 81.5 80.0-100.0 fL Mean Corpuscular Hemoglobin 26.5 L 28.0-32.0 pg Mean Corpuscular Hemoglobin Concent 32.6 32.0-36.0 g/dL Red Cell Distribution Width 18.4 H 11.8-14.3 % Platelet Count 342 140-450 10^3/uL Mean Platelet Volume 7.5 6.9-10.8 fL Neutrophils (%) (Auto) 37.0-80.0 % Lymphocytes (%) (Auto) 10.0-50.0 % Monocytes (%) (Auto) 0.0-12.0 % Basophils (%) (Auto) 0.0-2.0 % Neutrophils # (Auto) 1.6-8.6 10 ^3/uL Lymphocytes # (Auto) 0.4-5.4 10 ^3/uL Monocytes # (Auto) 0-1.3 10 ^3/uL Differential Total Cells Counted 100.0 100 Neutrophils % (Manual) 88 H 37.0-80.0 Band Neutrophils % (Manual) 0 Lymphocytes % (Manual) 8 L 10.0-50.0 Monocytes % (Manual) 4 0-12 Eosinophils % (Manual) 0 0-7 Basophils % (Manual) 0 0.0-2.0 Metamyelocytes % (manual) 0 Myelocytes % (Manual) 0 Promyelocytes % (Manual) 0 Blast Cells % (Manual) 0 Reactive Lymphocytes 0 Platelet Estimate Adequate Prothrombin Time 10.9 9.3-11.8 sec Prothrombin Time INR 1.03 0.9-1.15 Activated Partial Thromboplast Time 24.9 24.5-34.5 SEC D-Dimer, Quantitative 0.51 H 0.0-0.49 mg/L FEU Sodium Level 144 136-145 mmol/L Potassium Level 4.3 3.5-5.1 mmol/L Chloride Level 108 H 98-107 mmol/L Carbon Dioxide Level 29 20-31 mmol/L Anion Gap 7 5-15 Blood Urea Nitrogen 14 9-23 mg/dL Creatinine 1.02 0.700-1.30 mg/dL Glomerular Filtration Rate Calc 80 >90 mL/min BUN/Creatinine Ratio 13.7 10.0-20.0 Serum Glucose 112 H 74-106 mg/dL Calcium Level 9.3 8.7-10.4 mg/dL Total Bilirubin 0.5 0.2-1.0 mg/dL Direct Bilirubin < 0.1 <0.3 mg/dL Aspartate Amino Transferase (AST) 25 13-40 U/L Alanine Aminotransferase (ALT) 27 7-40 U/L Alkaline Phosphatase 103 46-116 U/L Troponin I High Sensitivity 3 L </=54 ng/L B-Type Natriuretic Peptide 26.50 0-100 pg/mL Total Protein 6.6 5.7-8.2 g/dL Albumin 4.2 3.2-4.8 g/dL Current Medications Medications (Trade) Dose Ordered Sig/Arnaldo Route Start Time Stop Time Status Last Admin Methylprednisolone Sodium Succinate (Solu Medrol) 125 mg ONCE ONCE IV 09/05/24 12:00 09/05/24 12:01 DC 09/05/24 12:04 Albuterol (Ventolin Medneb) 5 mg ONCE ONCE NEB 09/05/24 12:00 09/05/24 12:01 DC 09/05/24 12:04 Ipratropium [place] (Atrovent Medneb) 0.5 mg ONCE ONCE NEB 09/05/24 12:00 09/05/24 12:01 DC 09/05/24 12:04 Ceftriaxone Sodium 50 ml @ 100 mls/hr ONCE ONCE IV 09/05/24 12:00 09/05/24 12:29 DC 09/05/24 12:03 Azithromycin 250 ml @ 125 mls/hr ONCE ONCE IV 09/05/24 12:00 09/05/24 13:59 DC 09/05/24 12:04 Sodium Chloride 1,000 ml @ 1,000 mls/hr Q1H ONCE IV 09/05/24 12:00 09/05/24 12:59 DC 09/05/24 12:04 Patient alert. Complaining of shortness a breath. Placed on oxygen. Answering questions. Reviewed his previous visit. History of COPD. Was given steroid. Was given breathing treatment. Possible pneumonitis. Was given Rocephin. Was given azithromycin. EKG reviewed does not show any acute changes. Explained to the patient. Continue monitoring. Time of 1ST Reevaluation: 11:45 Reevaluation 1ST: Unchanged Patient Education/Counseling: Diagnosis, Treatment, Prognosis Family Education/Counseling: No Family Present SEPSIS Sepsis Screen Physician Orders Chest Portable (09/05/24 11:48) Blood Culture (09/05/24 11:48) Sodium Chloride 0.9% (09/05/24 12:00) Vital Signs Date Time Temp Pulse Resp B/P (MAP) Pulse Ox O2 Delivery O2 Flow Rate FiO2 09/05/24 13:49 97.8 86 17 136/53 (80) 100 97.8 09/05/24 13:44 Nasal Cannula* 4 36 09/05/24 12:04 20 4 Nasal Cannula* 4 36 09/05/24 11:47 98 09/05/24 11:42 98 09/05/24 11:35 24 99 Room Air* 0 21 09/05/24 11:35 98.5 110 24 161/99 (119) 99 98.5 Laboratory Tests Test 09/05/24 12:05 09/05/24 14:13 Lactic Acid Level 2.2 mmol/L (0.4-2.0) *H 2.4 mmol/L (0.4-2.0) *H White Blood Count 25.9 10^3/uL (4.4-10.8) H Medications Medications Dose Ordered Sig/Arnaldo Route Start Time Stop Time Status Last Admin Dose Admin Albuterol 5 mg ONCE ONCE NEB 09/05/24 12:00 09/05/24 12:01 DC 09/05/24 12:04 Azithromycin 250 ml @ 125 mls/hr ONCE ONCE IV 09/05/24 12:00 09/05/24 13:59 DC 09/05/24 12:04 Ceftriaxone Sodium 50 ml @ 100 mls/hr ONCE ONCE IV 09/05/24 12:00 09/05/24 12:29 DC 09/05/24 12:03 Ipratropium [place] 0.5 mg ONCE ONCE NEB 09/05/24 12:00 09/05/24 12:01 DC 09/05/24 12:04 Methylprednisolone Sodium Succinate 125 mg ONCE ONCE IV 09/05/24 12:00 09/05/24 12:01 DC 09/05/24 12:04 Sodium Chloride 1,000 ml @ 1,000 mls/hr Q1H ONCE IV 09/05/24 12:00 09/05/24 12:59 DC 09/05/24 12:04 Departure 1 Departure Time of Disposition: 11:46 Impression: Primary Impression: Acute and chronic respiratory failure with hypoxia Additional Impressions: COPD exacerbation Pneumonitis Disposition: ADMITTED INPATIENT Admit to: Med Surg Condition: Guarded Critical Care Note Critical Care Time?: Yes (90 min-critical care time only) Critical care comment: Placed on oxygen Stability Stability form required: No Heart Score Heart Score: Heart Score Response (Comments) Value History Slightly Suspicious 0 EKG Normal 0 Age >65 2 Risk Factors >3 or Hx ASHD 2 Troponin Normal limit 0 Total 4 LORENA MARCH MD Sep 05, 2024 11:47
--- NOTE | 2024-09-05 11:50 | ECG ---
[facility] Test Date: 2024-09-05 Test Time: 11:42:30 Pat Name: KAISER BARRERA Department: er Room: [facility] Gender: M Wood Inspector: gp : 1955 Requested By: LORENA MARCH Order Number: [id number] Reading MD: Bryan Canela Measurements Intervals M[place]onnell Rate: 98 P: 83 NH: 150 QRS: 24 QRSD: 131 T: 55 QT: 350 QTc: 447 Interpretive Statements Sinus rhythm Nonspecific intraventricular conduction delay Borderline ST elevation, anterior leads Electronically Signed On 09-06-2024 17:01:01 PDT by Bryan Canela Please click the below link to view image of tracing.
[2024-09-05] MEDS: SODIUM CHLORIDE 0.9% 1,000 ML IV ONE ×2 (11:59→12:04)
[2024-09-05] MEDS: cefTRIAXone 1GM/50ML D5W 50 ML IV ONE (12:03)
[2024-09-05] MEDS: AZITHROMYCIN 500MG/ 250ML 250 ML IV ONE ×2 (12:04→15:51)
[2024-09-05] MEDS: ALBUTEROL SULF 2.5 MG/0.5ML(0.5%) NEB SOLN NEB ONE (12:04)
[2024-09-05] MEDS: methylPREDNISolone SOD SUCC 125 MG/2 ML VL IV ONE (12:04)
[2024-09-05] MEDS: IPRATROPIUM BROM 0.5 MG/2.5ML INH SOL NEB ONE (12:04)
[2024-09-05 12:15] LABS: Hematocrit 43.5 % (41.0-53.0); Hemoglobin 14.2 g/dL (13.5-17.5); Mean Corpuscular Hemoglobin 26.5 pg (28.0-32.0); Mean Corpuscular Volume 81.5 fL (80.0-100.0)
[2024-09-05 12:31] LABS: Potassium 4.3 mmol/L (3.5-5.1); Sodium 144 mmol/L (136-145)
[2024-09-05 12:32] LABS: Anion Gap 7 (5-15); Calcium 9.3 mg/dL (8.7-10.4); Carbon Dioxide 29 mmol/L (20-31); Chloride 108 mmol/L (98-107)
[2024-09-05 12:34] LABS: Total Cells Counted 100.0 (100)
[2024-09-05 12:37] LABS: BUN/Creatinine Ratio 13.7 (10.0-20.0); Blood Urea Nitrogen 14 mg/dL (9-23); Glucose 112 mg/dL (74-106); Lactic Acid w/Reflex 2.2 mmol/L (0.4-2.0)
[2024-09-05] MEDS ORDERED: NITROGLYCERIN 0.4 MG SL TAB SL PRN (14:15)
[2024-09-05] MEDS ORDERED: MORPHINE SULFATE INJ 2 MG/ml SYRG IV PRN (14:15)
[2024-09-05] MEDS ORDERED: ONDANSETRON HCL 4 MG/2 ML VIAL IV PRN (14:15)
--- NOTE | 2024-09-05 14:39 | DVH ---
EXAM: XY CHEST PORTABLE HISTORY: sob COMPARISON: XY CHEST PORTABLE on DOS: 06/15/24, XY CHEST PORTABLE on DOS: 06/13/24, XY CHEST PORTABLE on DOS: 04/06/24, XY CHEST PORTABLE on DOS: 03/07/24, XY CHEST PORTABLE on DOS: 03/04/24, CT scan of the c hest dated 01/31/2024. TECHNIQUE: Portable AP view of the chest was performed. FINDINGS: There is mild right basilar infiltrate, similar to that seen previously. No pneumothorax. Emphysemato us changes are better characterized on prior CT scan. The heart is not enlarged. The central pulmonar y arteries are ectatic. IMPRESSION: 1. Mild right basilar infiltrate is similar to that seen on chest x-ray dated 06/15/2024, and may rep resent scarring at this point. 2. Emphysema. 3. Pulmonary arterial hypertension.
[2024-09-05 15:09] LABS: Alanine Aminotransferase 27 U/L (7-40); Albumin 4.2 g/dL (3.2-4.8); Alkaline Phosphatase 103 U/L (46-116); Bilirubin, Total 0.5 mg/dL (0.2-1.0); Total Protein 6.6 g/dL (5.7-8.2)
[2024-09-05 15:11] LABS: Bilirubin, Direct < 0.1 mg/dL (<0.3)
[2024-09-05 15:17] LABS: INR 1.03 (0.9-1.15); Partial Thromboplastin Time 24.9 SEC (24.5-34.5); Prothrombin Time 10.9 sec (9.3-11.8)
--- NOTE | 2024-09-05 15:32 | DVHHPRES ---
History of Present Illness Resident Creating Document: KEITH ARREOLA RESIDENT History of Present Illness 69-year-old male with previous history of COPD on 2 L home oxygen, CVA, hypertension, previous history of PA, recurrent PEs, lung cancer s/p lobectomy, presents to the ED due to increasing shortness of breath since morning. Shortness of breathe improved with sitting up and no relation with lying down. The patient denies any chest pain, cough, fever, chills or any other complaints at this time. Patient denies any recent sick contacts. Past medical history: CAD, bronchitis, asthma, hypertension, CVA, PEs Past surgical history: Lung Lobectomy Family history: Multiple family member has cancers, patient could not specify which type of cancer or which organ was involved. Lives at home Smokeing: the patient smoked for 26 years, 2 pack per day. Fifty-two pack-year. Drink: Past history of drinking for a short time. Drug abuse: Denies Home medications: Amlodipine 10 mg: Albuterol inhaler, Apixaban recently stopped, Memantine Review of Systems Review of Systems Review of systems: The patient was seen and examined at the bedside. The patient reports having shortness of breath. Rest of the ROS is negative. Allergies: Coded Allergies: NO KNOWN ALLERGIES (Unverified , 03/24/22) Medications Current Medications Medications Dose Ordered Sig/Arnaldo Route Start Time Stop Time Status Last Admin Dose Admin Ondansetron HCl 4 mg Q4HP PRN IV 09/05/24 14:15 Enoxaparin Sodium 40 mg DAILY SC 09/06/24 10:00 Acetaminophen 650 mg Q6HP PRN PO 09/05/24 14:15 Nitroglycerin 0.4 mg Q5MINP PRN SL 09/05/24 14:15 Morphine Sulfate 2 mg Q30M PRN IV 09/05/24 14:15 Albuterol 2.5 mg Q6HWA PRN NEB 09/05/24 14:30 Ipratropium [place] 0.5 mg Q6HWA PRN NEB 09/05/24 14:30 Methylprednisolone Sodium Succinate 40 mg BID IV 09/05/24 22:00 Azithromycin 250 ml @ 125 mls/hr DAILY IV 09/06/24 10:00 Patient Own Medication 1 tab DAILY PO 09/06/24 10:00 UNV Amlodipine Besylate 10 mg DAILY PO 09/06/24 10:00 Exam Vital Signs Vital Signs Date Time Temp Pulse Resp B/P (MAP) Pulse Ox O2 Delivery O2 Flow Rate FiO2 09/05/24 13:49 97.8 86 17 136/53 (80) 100 97.8 09/05/24 13:44 Nasal Cannula* 4 36 Exam Pt is lying on bed General Appearance: Nasal cannula was in place with 2 L oxygen, facial deviation towards the left side, Alert, Oriented X3, Cooperative, Mild distress HEENT: Atraumatic, Mucous membranes moist/pink Respiratory: Rhonchi present bilaterally, expiration was prolonged. Cardiovascular: Regular rate, Normal S1, Normal S2, No murmurs Abdominal/ : Active bowel sounds, Soft, no distention, no tenderness Extremities: No edema, Normal pulses, No tenderness/swelling Skin: No Significant rash, except past surgical scars Neuro: Left upper extremity weakness present 1+, left lower leg weaker than the right 4+ , sensorimotor deficits none Psych/Mental Status: Mental status NL, Mood NL Nurse was there as bleaching supervisor during examination Labs/Xrays Labs Test 09/05/24 14:13 09/05/24 12:05 Range/Units Lactic Acid Level 2.4 *H 0.4-2.0 mmol/L White Blood Count 25.9 H 4.4-10.8 10^3/uL Red Blood Count 5.33 4.5-5.90 10^6/uL Hemoglobin 14.2 13.5-17.5 g/dL Hematocrit 43.5 41.0-53.0 % Mean Corpuscular Volume 81.5 80.0-100.0 fL Mean Corpuscular Hemoglobin 26.5 L 28.0-32.0 pg Mean Corpuscular Hemoglobin Concent 32.6 32.0-36.0 g/dL Red Cell Distribution Width 18.4 H 11.8-14.3 % Platelet Count 342 140-450 10^3/uL Mean Platelet Volume 7.5 6.9-10.8 fL Neutrophils (%) (Auto) 37.0-80.0 % Lymphocytes (%) (Auto) 10.0-50.0 % Monocytes (%) (Auto) 0.0-12.0 % Basophils (%) (Auto) 0.0-2.0 % Neutrophils # (Auto) 1.6-8.6 10 ^3/uL Lymphocytes # (Auto) 0.4-5.4 10 ^3/uL Monocytes # (Auto) 0-1.3 10 ^3/uL Differential Total Cells Counted 100.0 100 Neutrophils % (Manual) 88 H 37.0-80.0 Band Neutrophils % (Manual) 0 Lymphocytes % (Manual) 8 L 10.0-50.0 Monocytes % (Manual) 4 0-12 Eosinophils % (Manual) 0 0-7 Basophils % (Manual) 0 0.0-2.0 Metamyelocytes % (manual) 0 Myelocytes % (Manual) 0 Promyelocytes % (Manual) 0 Blast Cells % (Manual) 0 Reactive Lymphocytes 0 Platelet Estimate Adequate Prothrombin Time 10.9 9.3-11.8 sec Prothrombin Time INR 1.03 0.9-1.15 Activated Partial Thromboplast Time 24.9 24.5-34.5 SEC D-Dimer, Quantitative 0.51 H 0.0-0.49 mg/L FEU Sodium Level 144 136-145 mmol/L Potassium Level 4.3 3.5-5.1 mmol/L Chloride Level 108 H 98-107 mmol/L Carbon Dioxide Level 29 20-31 mmol/L Anion Gap 7 5-15 Blood Urea Nitrogen 14 9-23 mg/dL Creatinine 1.02 0.700-1.30 mg/dL Glomerular Filtration Rate Calc 80 >90 mL/min BUN/Creatinine Ratio 13.7 10.0-20.0 Serum Glucose 112 H 74-106 mg/dL Calcium Level 9.3 8.7-10.4 mg/dL Total Bilirubin 0.5 0.2-1.0 mg/dL Direct Bilirubin < 0.1 <0.3 mg/dL Aspartate Amino Transferase (AST) 25 13-40 U/L Alanine Aminotransferase (ALT) 27 7-40 U/L Alkaline Phosphatase 103 46-116 U/L Troponin I High Sensitivity 3 L </=54 ng/L B-Type Natriuretic Peptide 26.50 0-100 pg/mL Total Protein 6.6 5.7-8.2 g/dL Albumin 4.2 3.2-4.8 g/dL SEPSIS Sepsis Screen Date sepsis recognized/suspect: Sep 05, 2024 Time Sepsis recognized/suspect: 1134 Recent Procedure: No On Antibiotic Therapy: No Respiratory Rate >20: No Heart Rate >90: Yes Temp<36 C (96.8 F) or >38.3 C: No SBP <90 or MAP <65 mmHG: No New Acute Mental Status Change: No Is the patient on CPAP, BIPAP,: No Physician Orders Chest Portable (09/05/24 11:48) Blood Culture (09/05/24 11:48) Sodium Chloride 0.9% (09/05/24 12:00) Admit (09/05/24 14:13) Allergies (09/05/24 14:13) Code Status (09/05/24 14:13) Oxygen Per Hour (09/05/24 14:13) Ondansetron Hcl (Zofran) (09/05/24 14:15) Enoxaparin Sodium (Lovenox) (09/06/24 10:00) Complete Blood Count (09/06/24 04:00) Comprehensive Metabolic Panel (09/06/24 04:00) Cardiac Diet-2gna,Lofat,Lochol (09/05/24 Dinner) Condition: Fair (09/05/24 14:13) Acetaminophen Tablet (Tylenol Tablet) (09/05/24 14:15) Nitroglycerin Sublingual (Ntrostat Subli (09/05/24 14:15) Morphine Sulfate Injection (09/05/24 14:15) Oxygen By Nasal Cannula (09/05/24 14:13) Stat Ekg For Chest Pain (09/05/24 14:13) Notify Md Of Changes From Base (09/05/24 14:13) Runner Out For 24 Hours (09/05/24 14:13) Emergency Dysrhythmia Protocol (09/05/24 14:13) Rhythm Strips Once Every Shift (09/05/24 14:13) Urinalysis (09/05/24 14:19) Drug Screen (09/05/24 14:19) Respiratory Culture W/ Gs (09/05/24 14:19) Rapid Influenza A&B (09/05/24 14:19) Covid19 Antigen Freda (09/05/24 ) Ct Angio Chest Contrast (09/05/24 14:19) Albuterol Medneb (Ventolin Medneb) (09/05/24 14:30) Ipratropium Medneb (Atrovent Medneb) (09/05/24 14:30) Methylprednisolone Sod Succ (Solu Medrol (09/05/24 22:00) Azithromycin 500mg/ 250ml (Zithromax 50 (09/05/24 14:30) Azithromycin 500mg/ 250ml (Zithromax 50 (09/06/24 10:00) Amlodipine Tablet (Norvasc Tablet) (09/06/24 10:00) Bilat Lower Dvt (09/05/24 15:11) Vital Signs Date Time Temp Pulse Resp B/P (MAP) Pulse Ox O2 Delivery O2 Flow Rate FiO2 09/05/24 13:49 97.8 86 17 136/53 (80) 100 97.8 09/05/24 13:44 Nasal Cannula* 4 36 09/05/24 12:04 20 4 Nasal Cannula* 4 36 09/05/24 11:47 98 09/05/24 11:42 98 09/05/24 11:35 24 99 Room Air* 0 21 09/05/24 11:35 98.5 110 24 161/99 (119) 99 98.5 Laboratory Tests Test 09/05/24 12:05 09/05/24 14:13 Lactic Acid Level 2.2 mmol/L (0.4-2.0) *H 2.4 mmol/L (0.4-2.0) *H White Blood Count 25.9 10^3/uL (4.4-10.8) H Medications Medications Dose Ordered Sig/Arnaldo Route Start Time Stop Time Status Last Admin Dose Admin Albuterol 5 mg ONCE ONCE NEB 09/05/24 12:00 09/05/24 12:01 DC 09/05/24 12:04 5 MG Azithromycin 250 ml @ 125 mls/hr ONCE ONCE IV 09/05/24 12:00 09/05/24 13:59 DC 09/05/24 12:04 125 MLS/HR Ceftriaxone Sodium 50 ml @ 100 mls/hr ONCE ONCE IV 09/05/24 12:00 09/05/24 12:29 DC 09/05/24 12:03 100 MLS/HR Ipratropium [place] 0.5 mg ONCE ONCE NEB 09/05/24 12:00 09/05/24 12:01 DC 09/05/24 12:04 0.5 MG Methylprednisolone Sodium Succinate 125 mg ONCE ONCE IV 09/05/24 12:00 09/05/24 12:01 DC 09/05/24 12:04 125 MG Sodium Chloride 1,000 ml @ 1,000 mls/hr Q1H ONCE IV 09/05/24 12:00 09/05/24 12:59 DC 09/05/24 12:04 1,000 MLS/HR Assessment/Plan Assessment/Plan #Acute on chronic hypoxic respiratory failure #COPD exacerbation #Sepsis due to above #? Pneumonia -albuterol -ipratropium -rheumatoid 40 mg b.i.d. -Azithromycin -flu and COVID-19 serology ordered -Lactic acid 2.2 CT angiogram ordered, results pending History of CHF not on exacerbation, BNP ordered Troponin negative GI prophylaxis: Pantoprazole DVT prophylaxis: Eliquis Diet: Diabetic Goals of care discussed with the patient for more than 27 minutes: Full code status Case discussed with Dr. Mina , patient and RN Plan discussed with: Patient, Other (RN) My Orders Orders - KEITH ARREOLA RESIDENT Procedure Category Date Status Time Admit ADMIT 09/05/24 Transmitted 14:13 Allergies LINDSAY 09/05/24 In Process 14:13 Code Status CODE 09/05/24 Transmitted 14:13 Oxygen Per Hour RT 09/05/24 Transmitted 14:13 Ondansetron Hcl PHA 09/05/24 In Process (Zofran) 14:15 Enoxaparin Sodium PHA 09/06/24 In Process (Lovenox) 10:00 Complete Blood Count LAB 09/06/24 Verified 04:00 Comprehensive LAB 09/06/24 Verified Metabolic Panel 04:00 Cardiac DIET 09/05/24 Transmitted Diet-2gna,Lofat,Lochol Dinner Condition: Fair LINDSAY 09/05/24 In Process 14:13 Acetaminophen Tablet PHA 09/05/24 In Process (Tylenol Tablet) 14:15 Nitroglycerin PHA 09/05/24 In Process Sublingual (Ntrostat 14:15 Morphine Sulfate PHA 09/05/24 In Process Injection 14:15 Oxygen By Nasal RT 09/05/24 Transmitted Cannula 14:13 Stat Ekg For Chest LINDSAY 09/05/24 In Process Pain 14:13 Notify Md Of Changes LINDSAY 09/05/24 In Process From Base 14:13 Runner Out For LINDSAY 09/05/24 In Process 24 Hours 14:13 Emergency Dysrhythmia LINDSAY 09/05/24 In Process Protocol 14:13 Rhythm Strips Once LINDSAY 09/05/24 In Process Every Shift 14:13 Urinalysis LAB 09/05/24 Logged 14:19 Drug Screen LAB 09/05/24 Logged 14:19 Respiratory Culture ANNAMARIA 09/05/24 Logged W/ Gs 14:19 Rapid Influenza A&B LAB 09/05/24 Logged 14:19 Covid19 Antigen Freda LAB 09/05/[address] Angio [address] CT 09/05/24 Taken Contrast 14:19 Albuterol Medneb PHA 09/05/24 In Process (Ventolin Medneb) 14:30 Ipratropium Medneb PHA 09/05/24 In Process (Atrovent Medneb) 14:30 Methylprednisolone PHA 09/05/24 In Process Sod Succ (Solu Medrol 22:00 Azithromycin 500mg/ PHA 09/05/24 In Process 250ml (Zithromax 50 14:30 Azithromycin 500mg/ PHA 09/06/24 In Process 250ml (Zithromax 50 10:00 Amlodipine Tablet PHA 09/06/24 In Process (Norvasc Tablet) 10:00 Bilat Lower Dvt US 09/05/24 Logged 15:11 Date of Service: Sep 05, 2024 Billing Provider: JOSE L MINA MD Common Visit Codes: [id number] INP/OBS CARE (HIGH) KEITH ARREOLA RESIDENT Sep 05, 2024 15:32 JOSE L MINA MD Sep 05, 2024 22:29
--- NOTE | 2024-09-05 15:42 | DVH ---
Indication: PE Technique: CT axial images of the chest are obtained with intravenous contrast per CT angiogram prot ocol. Coronal and sagittal reformats were obtained. Comparison: CT CT ANGIO CHEST CONTRAST on DOS: 01/31/24 FINDINGS: No filling defect within the main left right pulmonary arteries. The segmental and subsegmental branc hes are suboptimally opacified/characterized. Trachea patent. No pneumothorax. Lower lobe atelectasis/developing consolidation. Heart normal in size. Right pericardial hypodense lesion measuring 2.6 cm. No supraclavicular, axillary lymphadenopathy. Aortic atherosclerotic disease. No aggressive osseous process. IMPRESSION: No evidence for large pulmonary embolism. Segmental and subsegmental branches not adequately assesse d. Left lower lobe atelectasis / developing consolidation. Follow-up to resolution. Right pericardial hypodense lesion measuring 2.6 cm, possibly pericardial cyst but other lesions incl uding abnormal lymph node not ruled out. Recommend MRI of the chest with and without contrast which can be done in the nonemergent setting. A PET scan can would also technical administrative assistant ensuring that this is a c ystic lesion not malignant etiology. This was previously reported as measuring 15 mm. Previous image s not available for comparison at this time Pulmonary emphysematous changes. Other findings as described.
[2024-09-05] MEDS: IOHEXOL 350 MG/ML 100ML IJ ONE (15:51)
--- NOTE | 2024-09-05 15:54 | DVH ---
US BiLat Lower DVT HISTORY: DVT COMPARISON: US BILAT LOWER DVT on DOS: 11/25/23, US BILAT LOWER DVT on DOS: 06/30/23, US BILAT LOWER D VT on DOS: 04/06/23 TECHNIQUE: Duplex doppler evaluation of the deep venous system of the lower extremity from the common femoral veins, superficial femoral vein, great saphenous vein, deep femoral vein, popliteal vein, an d calf veins, including color doppler and spectral/pulsed waveform analysis, was performed. FINDINGS: Right: - Common femoral vein: Compressible - Deep femoral vein: Compressible - Femoral vein: Compressible - Popliteal vein: Compressible - Posterior tibial vein: Waveforms present - Other: Nothing Left: - Common femoral vein: Compressible - Deep femoral vein: Compressible - Femoral vein: Compressible - Popliteal vein: Compressible - Posterior tibial vein: Waveforms present - Other: Nothing IMPRESSION: No right or left lower extremity deep venous thrombosis.
[2024-09-05 15:58] VITALS: BP 136/53; PULSE 86; RESP 17; TEMP 97.8; O2SAT 100
[2024-09-05 16:03] VITALS: O2SAT 100
[2024-09-05 17:05] LABS: Urine Protein, UAD Negative (Negative)
[2024-09-05 17:13] LABS: Amphetamine Screen, Urine Neg (NEGATIVE); Barbiturate Scree,Urine Neg (NEGATIVE); Benzodiazephine Screen, Urine Neg (NEGATIVE); Cocaine Screen, Urine Neg (NEGATIVE)
[2024-09-05 17:14] LABS: Cannabinoid Screen, Urine Neg (NEGATIVE); Opiate Scree,Urine Neg (NEGATIVE); Phencyclidine Screen, Urine Neg (NEGATIVE)
[2024-09-05 18:00] VITALS: RESP 18; O2SAT 96
[2024-09-05 18:10] VITALS: PULSE 86; RESP 20; O2SAT 100
[2024-09-05] MEDS: ALBUTEROL SULF 2.5 MG/0.5ML(0.5%) NEB SOLN NEB PRN (18:36)
[2024-09-05] MEDS: IPRATROPIUM BROM 0.5 MG/2.5ML INH SOL NEB PRN (18:36)
[2024-09-05 20:00] VITALS: PULSE 90; RESP 18; O2SAT 99
[2024-09-05 21:00] VITALS: BP 128/87; PULSE 90; RESP 18; TEMP 97.8; O2SAT 99
[2024-09-05] MEDS: methylPREDNISolone SOD SUCC 40 MG/ML VL IV SCH (21:34)
[2024-09-05] MEDS: ACETAMINOPHEN 325 MG TAB PO PRN (23:26)
[2024-09-06] VITALS (11 sets, daily range): BP systolic 114–146; BP diastolic 66–95; PULSE 70–92; RESP 17–22; TEMP 97.5–100; O2SAT 95–100
[2024-09-06 01:59] LABS: COVID19 ANTIGEN SOFIA FIA NEGATIVE (NEGATIVE)
[2024-09-06 05:43] LABS: Hematocrit 39.0 % (41.0-53.0); Hemoglobin 12.5 g/dL (13.5-17.5); Mean Corpuscular Hemoglobin 25.9 pg (28.0-32.0); Mean Corpuscular Volume 80.5 fL (80.0-100.0); Nucleated Red Blood Cells % 0.0 %
[2024-09-06 05:52] LABS: Alanine Aminotransferase 22 U/L (7-40); Albumin 3.6 g/dL (3.2-4.8); Alkaline Phosphatase 91 U/L (46-116); Anion Gap 10 (5-15); BUN/Creatinine Ratio 16.4 (10.0-20.0); Blood Urea Nitrogen 18 mg/dL (9-23); Calcium 8.9 mg/dL (8.7-10.4); Carbon Dioxide 26 mmol/L (20-31); Potassium 4.7 mmol/L (3.5-5.1); Sodium 144 mmol/L (136-145)
[2024-09-06 05:53] LABS: Bilirubin, Total 0.4 mg/dL (0.2-1.0)
[2024-09-06 05:56] LABS: Chloride 108 mmol/L (98-107); Glucose 189 mg/dL (74-106); Total Protein 5.5 g/dL (5.7-8.2)
[2024-09-06] MEDS ORDERED: DEXTROSE (50%) 50ML SYRG IV PRN (08:45)
[2024-09-06] MEDS: AZITHROMYCIN 500MG/ 250ML 250 ML IV SCH (09:50)
[2024-09-06] MEDS: ENOXAPARIN SOD 40 MG/0.4 ML SYRINGE SC SCH (09:51)
[2024-09-06] MEDS ORDERED: PATIENTS OWN MEDICATION (Amlodipine Besylate 1 TAB) PO SCH (10:00)
[2024-09-06] MEDS: InsuLIN REG 1unit/0.01ml Soln (100units/ml) SC SCH (12:25)
[2024-09-06] MEDS: ACCU-CHEK COMFORT CURVE STRIP VI SCH (12:25)
--- NOTE | 2024-09-06 15:36 | DVHPNRES ---
Progress Note Date Seen: Sep 06, 2024 Resident Creating Document: KEITH ARREOLA Medical Necessity Reason Pt with a Central, PICC or Fol: No Subjective Review of Systems The patient reports improvement in his shortness of breath. He denies any chest pain, fever cough or any other complaints at this time. Review of the systems: Patient was seen and examined at the bedside. ROS as above. No new complaints reported. Rest of the ROS is negative. Objective vital signs Vital Sign Date Time Temp Pulse Resp B/P (MAP) Pulse Ox O2 Delivery O2 Flow Rate FiO2 09/06/24 12:35 97.8 76 17 128/76 (93) 98 97.8 09/06/24 08:00 Nasal Cannula* 3 32 Total Intake and Output 09/05/24 09/05/24 09/06/24 15:00 23:00 07:00 Intake Total 320 ml Output Total 800 ml Balance -480 ml medications Current Medications Medications Dose Ordered Sig/Arnaldo Route Start Time Stop Time Status Last Admin Dose Admin Ondansetron HCl 4 mg Q4HP PRN IV 09/05/24 14:15 Acetaminophen 650 mg Q6HP PRN PO 09/05/24 14:15 09/05/24 23:26 650 MG Nitroglycerin 0.4 mg Q5MINP PRN SL 09/05/24 14:15 Morphine Sulfate 2 mg Q30M PRN IV 09/05/24 14:15 Albuterol 2.5 mg Q6HWA PRN NEB 09/05/24 14:30 09/05/24 18:36 2.5 MG Ipratropium [place] 0.5 mg Q6HWA PRN NEB 09/05/24 14:30 09/05/24 18:36 0.5 MG Methylprednisolone Sodium Succinate 40 mg BID IV 09/05/24 22:00 09/06/24 09:50 40 MG Azithromycin 250 ml @ 125 mls/hr DAILY IV 09/06/24 10:00 09/06/24 09:50 125 MLS/HR Patient Own Medication 1 tab DAILY PO 09/06/24 10:00 UNV Amlodipine Besylate 10 mg DAILY PO 09/06/24 10:00 09/06/24 09:50 10 MG Diagnostic Test (Pha) 1 strip ACHS 09/06/24 11:30 09/06/24 12:25 1 STRIP Insulin Human Regular ACHS SC 09/06/24 11:30 09/06/24 12:25 3 UNITS Dextrose 50 ml UD PRN IV 09/06/24 08:45 Apixaban 5 mg BID PO 09/06/24 22:00 Examination General Appearance: Nasal cannula was in place with 2 L oxygen, facial deviation towards the left side, Alert, Oriented X3, Cooperative, Mild distress HEENT: Atraumatic, Mucous membranes moist/pink Respiratory: Rhonchi present bilaterally, expiration was prolonged. Cardiovascular: Regular rate, Normal S1, Normal S2, No murmurs Abdominal/ : Active bowel sounds, Soft, no distention, no tenderness Extremities: No edema, Normal pulses, No tenderness/swelling Skin: No Significant rash, except past surgical scars Neuro: Left upper extremity weakness present 1+, left lower leg weaker than the right 4+. Cranial nerves intact. Psych/Mental Status: Mental status NL, Mood NL Nurse was there as corporate administrator during examination laboratory and microbiology Laboratory Tests 09/06/24 04:29 Test 09/06/24 04:29 Range/Units Serum Glucose 189 H 74-106 mg/dL Microbiology Date/Time Source Procedure Growth Status 09/05/24 12:00 Blood Blood Culture - Preliminary NO GROWTH AFTER 24 HOURS OF INCUBATION. Resulted Labs and/or images reviewed: Labs reviewed by me, Image(s) reviewed by me Problem List/Assessment/Plan Problem List/Assessment/Plan #Acute on chronic hypoxic respiratory failure #COPD exacerbation #Sepsis due to above #? Acute Gram-positive or negative Pneumonia Ruled out PE -albuterol -ipratropium -rheumatoid 40 mg b.i.d. -Azithromycin -flu and COVID-19 serology ordered -Lactic acid 2.2 -CT angiogram: No evidence for large pulmonary embolism. Segmental and subsegmental branches not adequately assessed. Left lower lobe atelectasis / developing consolidation. Follow-up to resolution. # Right pericardial hypodense lesion measuring 2.6 cm, possibly pericardial cyst but other lesions including abnormal lymph node not ruled out. - Recommend MRI of the chest with and without contrast which can be done in the nonemergent setting. A PET scan can would also assistant chief train dispatcher ensuring that this is a cystic lesion not malignant etiology. This was previously reported as measuring 15 mm. Previous images not available for comparison at this time everything on outpatient basis Pulmonary emphysematous changes. History of CHF not on exacerbation, BNP ordered Troponin negative GI prophylaxis: Pantoprazole DVT prophylaxis: Eliquis Diet: Diabetic Goals of care discussed with the patient for more than 27 minutes: Full code status Case discussed with Dr. Mina , patient and RN Plan discussed with: Patient, Other (RN) Date of Service: Sep 06, 2024 Billing Provider: JOSE L MINA MD Common Visit Codes: [id number] INP/OBS CARE(HIGH) KEITH ARREOLA RESIDENT Sep 06, 2024 15:36 JOSE L MINA MD Sep 06, 2024 23:49
[2024-09-06] MEDS: APIXABAN 5 MG TAB PO SCH (21:41)
[2024-09-07] VITALS (7 sets, daily range): BP systolic 111–145; BP diastolic 72–85; PULSE 63–84; RESP 18–20; TEMP 36.6; O2SAT 95–100
[2024-09-07] MEDS ORDERED: AZIT500T66 PO ×2 (10:45→11:46)
[2024-09-07 10:59] LABS: Hematocrit 41.8 % (41.0-53.0); Hemoglobin 13.2 g/dL (13.5-17.5); Mean Corpuscular Hemoglobin 26.1 pg (28.0-32.0); Mean Corpuscular Volume 82.3 fL (80.0-100.0); Nucleated Red Blood Cells % 0.0 %
[2024-09-07 11:16] LABS: Anion Gap 7 (5-15); Calcium 10.1 mg/dL (8.7-10.4); Carbon Dioxide 27 mmol/L (20-31)
[2024-09-07 11:19] LABS: Chloride 107 mmol/L (98-107); Potassium 4.8 mmol/L (3.5-5.1); Sodium 141 mmol/L (136-145)
[2024-09-07 11:21] LABS: BUN/Creatinine Ratio 16.0 (10.0-20.0); Blood Urea Nitrogen 16 mg/dL (9-23)
[2024-09-07 11:22] LABS: Glucose 161 mg/dL (74-106)
[2024-09-07] MEDS ORDERED: IPRA0.00 INH (11:46)
[2024-09-07] MEDS ORDERED: PRED20TA2 PO (11:46)
[2024-09-07] MEDS ORDERED: UMEC1AER IN (11:58)
--- NOTE | 2024-09-07 17:40 | DVHDSRES ---
Discharge Summary Date of Admission Resident Creating Document: KEITH ARREOLA Sep 05, 2024 at 14:13 Date of Discharge: Sep 07, 2024 Admitting Diagnosis Shortness of breaths due to COPD exacerbation Labs/Diagnostic Data: Laboratory Results Test 09/07/24 10:35 09/06/24 21:37 09/06/24 04:29 09/06/24 01:00 White Blood Count 20.9 10^3/uL (4.4-10.8) Red Blood Count 5.08 10^6/uL (4.5-5.90) Hemoglobin 13.2 g/dL (13.5-17.5) Hematocrit 41.8 % (41.0-53.0) Mean Corpuscular Volume 82.3 fL (80.0-100.0) Mean Corpuscular Hemoglobin 26.1 pg (28.0-32.0) Mean Corpuscular Hemoglobin Concent 31.7 g/dL (32.0-36.0) Red Cell Distribution Width 18.7 % (11.8-14.3) Platelet Count 304 10^3/uL (140-450) Mean Platelet Volume 7.6 fL (6.9-10.8) Neutrophils (%) (Auto) 92.1 % (37.0-80.0) Lymphocytes (%) (Auto) 3.1 % (10.0-50.0) Monocytes (%) (Auto) 4.2 % (0.0-12.0) Eosinophils (%) (Auto) 0.3 % (0.0-7.0) Basophils (%) (Auto) 0.3 % (0.0-2.0) Neutrophils # (Auto) 19.3 10 ^3/uL (1.6-8.6) Lymphocytes # (Auto) 0.7 10 ^3/uL (0.4-5.4) Monocytes # (Auto) 0.9 10 ^3/uL (0-1.3) Eosinophils # (Auto) 0.1 10 ^3/uL (0-0.8) Basophils # (Auto) 0.1 10 ^3/uL (0-0.2) Nucleated Red Blood Cells 0.0 % Sodium Level 141 mmol/L (136-145) Potassium Level 4.8 mmol/L (3.5-5.1) Chloride Level 107 mmol/L (98-107) Carbon Dioxide Level 27 mmol/L (20-31) Anion Gap 7 (5-15) Blood Urea Nitrogen 16 mg/dL (9-23) Creatinine 1.00 mg/dL (0.700-1.30) Glomerular Filtration Rate Calc 81 mL/min (>90) BUN/Creatinine Ratio 16.0 (10.0-20.0) Serum Glucose 161 mg/dL (74-106) Calcium Level 10.1 mg/dL (8.7-10.4) POC Glucose 128 mg/dl (70-106) Total Bilirubin 0.4 mg/dL (0.2-1.0) Aspartate Amino Transferase (AST) 15 U/L (13-40) Alanine Aminotransferase (ALT) 22 U/L (7-40) Alkaline Phosphatase 91 U/L (46-116) Total Protein 5.5 g/dL (5.7-8.2) Albumin 3.6 g/dL (3.2-4.8) Influenza Type A Antigen Negative (Negative) Influenza Type B Antigen Negative (Negative) SARS-CoV-2 Antigen (Rapid) Negative (NEGATIVE) Test 09/05/24 16:30 09/05/24 14:13 09/05/24 12:05 Urine Color Colorless (Yellow) Urine Clarity Clear (Clear) Urine pH 6.5 (5.0-9.0) Urine Specific [place] 1.010 (1.001-1.035) Urine Protein Negative (Negative) Urine Ketones Negative (Negative) Urine Blood Negative /uL (Negative) Urine Nitrite Negative (Negative) Urine Bilirubin Negative (Negative) Urine Urobilinogen Normal mg/dL (Negative) Urine Leukocyte Esterase Negative /uL (Negative) Urine RBC None seen /hpf (0 - 3) Urine Microscopic WBC 1 /HPF (0-3) Urine Squamous Epithelial Cells None seen /hpf (<5) Urine Bacteria None seen /hpf (None Seen) Urine Glucose Normal mg/dL (Normal) Urine Opiates Screen Neg (NEGATIVE) Urine Fentanyl Screen Neg (NEGATIVE) Urine Barbiturates Screen Neg (NEGATIVE) Urine Phencyclidine Screen Neg (NEGATIVE) Urine Amphetamines Screen Neg (NEGATIVE) Urine Benzodiazepines Screen Neg (NEGATIVE) Urine Cocaine Screen Neg (NEGATIVE) Urine Cannabinoids Screen Neg (NEGATIVE) Lactic Acid Level 2.4 mmol/L (0.4-2.0) Differential Total Cells Counted 100.0 (100) Neutrophils % (Manual) 88 (37.0-80.0) Band Neutrophils % (Manual) 0 Lymphocytes % (Manual) 8 (10.0-50.0) Monocytes % (Manual) 4 (0-12) Eosinophils % (Manual) 0 (0-7) Basophils % (Manual) 0 (0.0-2.0) Metamyelocytes % (manual) 0 Myelocytes % (Manual) 0 Promyelocytes % (Manual) 0 Blast Cells % (Manual) 0 Reactive Lymphocytes 0 Platelet Estimate Adequate Prothrombin Time 10.9 sec (9.3-11.8) Prothrombin Time INR 1.03 (0.9-1.15) Activated Partial Thromboplast Time 24.9 SEC (24.5-34.5) D-Dimer, Quantitative 0.51 mg/L FEU (0.0-0.49) Direct Bilirubin < 0.1 mg/dL (<0.3) Troponin I High Sensitivity 3 ng/L (</=54) B-Type Natriuretic Peptide 26.50 pg/mL (0-100) Other Laboratory Tests 09/07/24 10:35 Brief Hx & Hospital Course: 69-year-old male with previous history of COPD, pulmonary embolism, cerebrovascular accident, lung cancer followed by lobectomy in 2 the year with shortness of breath. Denied any chest pain, fever gallop or any other complaints during admission. The patient's x-ray revealed scarring, emphysematous changes. The patient was treated with albuterol, ipratropium, steroid 40 mg b.i.d., azithromycin. Flu and COVID-19 was negative. Lactic acid trended downward. [address] angiogram reveals no evidence of large pulmonary embolism. Left lower lobe atelectasis or developing consolidation was found. Also right pericardial hypodense lesion measuring 2.6 cm. The patient was advised to follow up with alining inspector for possible MRI or PET scan of the chest with and without contrast. The patient was given GI prophylaxis with pantoprazole and DVT prophylaxis with Eliquis was maintained. The patient's diabetes was managed. Troponin was negative. EKG revealed no ischemic changes. During the day of discharge patient was breathing comfortably at 2 L of nasal cannula oxygen, which is his baseline home oxygen. The discharge plan was discussed with patient and patient verbalized understanding. Patient was stable and tolerating oral feeds during the time of discharge. During discharge the patient was given azithromycin 500 mg per oral daily 5 days, prednisone 20 mg tablet 40 mg daily 5 days, other home medications were continued. Patient was advised to follow up with PCP and pulmonology and surgery for asymptomatic chronic uncomplicated and reducible inguinal hernia. General Appearance: Nasal cannula was in place with 2 L oxygen, facial deviation towards the left side, Alert, Oriented X3, Cooperative, Mild distress HEENT: Atraumatic, Mucous membranes moist/pink Respiratory: Rhonchi present bilaterally. Cardiovascular: Regular rate, Normal S1, Normal S2, No murmurs Abdominal/ : Active bowel sounds, Soft, no distention, no tenderness Reducible right-sided inguinal hernia Extremities: No edema, Normal pulses, No tenderness/swelling Skin: No Significant rash, except past surgical scars Neuro: Left upper extremity weakness present 1+, left lower leg weaker than the right 4+. Cranial nerves intact. Psych/Mental Status: Mental status NL, Mood NL Nurse was there as squeak rattle and leak repairer during examination Operations or Procedures Ultrasound bilateral lower DVT No right or left lower extremity deep venous thrombosis. CT angiography chest: No evidence for large pulmonary embolism. Segmental and subsegmental branches not adequately assessed. CXR: 1. Mild right basilar infiltrate is similar to that seen on chest x-ray dated 06/15/2024, and may represent scarring at this point. 2. Emphysema. 3. Pulmonary arterial hypertension. Condition at Discharge: Stable Final Diagnosis/Problems List COPD exacerbation Acute on chronic hypoxic respiratory failure due to COPD exacerbation Sepsis due to above Gram-positive or negative human History of CHF not in exacerbation Right pericardial hypodense lesion Pulmonary emphysematous change Discharge Disposition: Home Discharge Instruct/Medications Diet: Consistent carbohydrate, Cardiac 2g Na,low cholest Diet comment: cardiac diet Activity: No Restrictions, As Tolerated Follow Up/Referral: Follow up with PCP in 1 week Medications: As per EMR Scheduled Albuterol Sulfate (Albuterol Sulfate Hfa), 2 PUFF INH Q6HR, (Reported) Amlodipine Besylate (Amlodipine Besylate), 1 TAB PO DAILY Apixaban Base (Eliquis), 5 MG PO BID Azithromycin (Azithromycin), 1 TAB PO DAILY Azithromycin (Azithromycin), 500 MG PO DAILY Memantine Hydrochloride (Memantine HCl), 1 TAB PO BID, (Reported) Prednisone (Prednisone), 40 MG PO DAILY Umeclidinium-Vilanterol (Anoro Ellipta 62.5-25 Mcg/INH), 1 AER IN DAILY Scheduled PRN Albuterol Sulfate (Ventolin Mdi), 90 MCG IN QID PRN Ipratropium-Albuterol (Ipratropium [place]/Albut), 2 PUFF INH PRN PRN for SHORTNESS OF BREATH Discharge Statement: "Patient was advised to return to the ER or call 911 if any headaches, dizziness, shortness of breath, chest pain, abdominal pain, bleeding, fevers, or worsening of medical condition. Patient was counseled about treatment plan, medications, possible side effects, patientverbalized understanding. All questions were answered to the best of my ability. This discharge took greater then 30 minutes in planning, reviewing documentation, counseling the patient, and discussing with other team members." ASSESSMENT ASSESSMENT Assessment COPD exacerbation Date of Service: Sep 07, 2024 Billing Provider: JOSE L SHANKS MD Common Visit Codes: 98012-ZOS/OBS DISCH DAY >30min KEITH ARREOLA Sep 07, 2024 17:40 JOSE L SHANKS MD Sep 08, 2024 23:49
== END 2024-09-07 13:10 | disposition home or self-care (01) | DRG 871 ==
LOC: EDBD 11:29 → ER 11:29 → OVERFLOW 14:13 → WEST WING 17:54
PROVIDERS: ADMIT Internal Medicine; ATTEND Emergency Medicine
DX: A41.50 Gram-negative sepsis, unspecified (principal); J15.69 Pneumonia due to other Gram-negative bacteria; J96.21 Acute and chronic respiratory failure with hypoxia; J15.9 Unspecified bacterial pneumonia; J44.1 Chronic obstructive pulmonary disease with (acute) exacerbation; I50.9 Heart failure, unspecified; I11.0 Hypertensive heart disease with heart failure; Z20.822 Contact with and (suspected) exposure to COVID-19; J98.4 Other disorders of lung; I25.10 Atherosclerotic heart disease of native coronary artery without angina pectoris; F17.210 Nicotine dependence, cigarettes, uncomplicated; Z85.118 Personal history of other malignant neoplasm of bronchus and lung; Z86.73 Personal history of transient ischemic attack (TIA), and cerebral infarction without residual deficits
CPT/HCPCS: 36415; 71045; 71275; 80048; 80053; 80076; 80307; 81001; 82962; 83605; 83880; 84484; 85007; 85025; 85027; 85379; 85610; 85730; 87040; 87426; 87804; 93005; 93970; 94640; 96365; 96375; 99291; 99292; G0378; J1815

== ENCOUNTER 2024-10-17 09:19 | Inpatient (IN) | payer OTHER, MEDICAID ==
[~2024-10-17] VITALS: Ht 165.1 cm; Wt 60.6 kg
[~2024-10-17 09:19] MED LIST changes: -IPRA0.00; +IPRA0.00 INH; +PRED20TA2 PO; +UMEC1AER IN
--- NOTE | 2024-10-17 09:25 | ED.PDOC ---
SOB-HPI HPI Comments This is a 69 year old male KRAIGA presenting to the ED with chief complaint of SOB. EMS reports that the patient started to experience SOB since 2 hours ago. EMS relays that the patient used albuterol prior to their arrival, noting that when they examined the patient, he had stated he felt much better with his O2 saturation at 9% on RA. Patient states he has associated dizziness when standing. Patient notes having history of lung cancer with partial right lung resection. Patient denies any chest pain, cough, headache, fever, or chills. 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, Medications, Allergies Information Source: Patient, Emergency Med Personnel Mode of Arrival: EMS Severity: Moderate Timing: Hours Duration: Since onset Context: At Rest PE Risk Factors: None History of: COPD Prehospital treatment: Breathing Tx Modifying Factors: Nothing Associated Signs and Symptoms: None Past Medical History PAST MEDICAL HISTORY: Asthma, Cancer, COPD, CVA, HTN, [place], PE Surgical History (Other): Partial right lung resection Family History Family History: Reviewed,noncontributory to illness, Family hx of Cancer Social History Smoker: Quit Greater Than 1 Year, Cigarettes Alcohol: Denies ETOH Use Drugs: Denies Drug Use Lives In: Home Constitutional: denies: chills, diaphoresis, fatigue, fever, malaise, sweats, weakness, others EENTM: denies: blurred vision, double vision, ear bleeding, ear discharge, ear drainage, ear pain, ear ringing, eye pain, eye redness, hearing loss, mouth pain, mouth swelling, nasal discharge, nose bleeding, nose congestion, nose pain, photophobia, tearing, throat pain, throat swelling, voice changes, others Respiratory: reports: shortness of breath; denies: cough, hemoptysis, orthopnea, SOB at rest, SOB with excertion, stridor, wheezing, others Cardiovascular: denies: chest pain, dizzy spells, diaphoresis, Dyspnea on exe rtion, edema, irregular heart beat, left arm pain, lightheadedness, palpitations, PND, syncope, others Gastrointestinal: denies: abdomen distended, abdominal pain, blood streaked bowels, constipated, diarrhea, dysphagia, difficulty swallowing, hematemesis, melena, nausea, poor appetite, poor fluid intake, rectal bleeding, rectal pain, vomiting, others Genitourinary: denies: burning, dysuria, flank pain, frequency, hematuria, incontinence, penile discharge, penile sore, pain, testicle pain, testicle swelling, urgency, others Neurological: denies: dizziness, fainting, headache, left sided numbness, left sided weakness, numbness, paresthesia, pre-existing deficit, right sided numbness, right sided weakness, seizure, speech problems, tingling, tremors, weakness, others Musculoskeletal: denies: back pain, gout, joint pain, joint swelling, muscle pain, muscle stiffness, neck pain, others Integumetry: denies: bruises, change in color, change in hair/nails, dryness, laceration, lesions, lumps, rash, wounds, others Allergic/Immunocompromised: denies: Difficulty Healing, Frequent Infections, Hives, Itching, others Hematologic/Lymphatic: denies: anemia, blood clots, easy bleeding, easy bruising, swollen glands, others Endocrine: denies: excessive hunger, excessive sweating, excessive thirst, excessive urination, flushing, intolerance to cold, intolerance to heat, unexplained weight gain, unexplained weight loss, others Psychiatric: denies: anxiety, bipolar disorder, depression, hopeless, panic disorder, schizophrenia, sleepless, suicidal, others All Other Systems: Reviewed and Negative Physical Exam General Appearance: Moderate Distress HEENT: Normal ENT Inspection, Pharynx Normal, TMs Normal Neck: Full Range of Motion, Non-Tender, Normal, Normal Inspection Respiratory: Chest Non-Tender, Decreased Breath Sounds, No Accessory Muscle Use , Normal Breath Sounds, Respiratory Distress, Wheezing Cardiovascular: No Edema, No JVD, No Murmur, No Gallop, Normal Peripheral Pulses, Regular Rate/Rhythm Breast Exam: Deferred Gastrointestinal: No Organomegaly, Non Tender, No Pulsatile Mass, Normal Bowel Sounds, Soft Genitalia: Deferred Pelvic: Deferred Rectal: Deferred Extremities: No calf tenderness, Normal capillary refill, No pedal edema Musculoskeletal : Apperance: Normal 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 Was a procedure done?: No Differential Dx Differential Diagnosis: Anxiety, Asthma, Bronchitis, CHF, COPD, Pneumonia X-Ray, Labs, Meds, VS Vital Signs Date Time Temp Pulse Resp B/P (MAP) Pulse Ox O2 Delivery O2 Flow Rate FiO2 10/17/24 10:08 22 93 Room Air* 0 21 10/17/24 09:25 79 10/17/24 09:23 79 10/17/24 09:20 98.4 85 20 133/84 95 98.4 Lab Test 10/17/24 09:38 Range/Units White Blood Count 9.0 4.4-10.8 10^3/uL Red Blood Count 5.30 4.5-5.90 10^6/uL Hemoglobin 14.0 13.5-17.5 g/dL Hematocrit 42.5 41.0-53.0 % Mean Corpuscular Volume 80.1 80.0-100.0 fL Mean Corpuscular Hemoglobin 26.4 L 28.0-32.0 pg Mean Corpuscular Hemoglobin Concent 33.0 32.0-36.0 g/dL Red Cell Distribution Width 18.7 H 11.8-14.3 % Platelet Count 307 140-450 10^3/uL Mean Platelet Volume 7.4 6.9-10.8 fL Neutrophils (%) (Auto) 68.3 37.0-80.0 % Lymphocytes (%) (Auto) 12.5 10.0-50.0 % Monocytes (%) (Auto) 6.9 0.0-12.0 % Eosinophils (%) (Auto) 11.2 H 0.0-7.0 % Basophils (%) (Auto) 1.1 0.0-2.0 % Neutrophils # (Auto) 6.2 1.6-8.6 10 ^3/uL Lymphocytes # (Auto) 1.1 0.4-5.4 10 ^3/uL Monocytes # (Auto) 0.6 0-1.3 10 ^3/uL Eosinophils # (Auto) 1.0 H 0-0.8 10 ^3/uL Basophils # (Auto) 0.1 0-0.2 10 ^3/uL Nucleated Red Blood Cells 0.2 % Sodium Level 145 136-145 mmol/L Potassium Level 4.2 3.5-5.1 mmol/L Chloride Level 110 H 98-107 mmol/L Carbon Dioxide Level 26 20-31 mmol/L Anion Gap 9 5-15 Blood Urea Nitrogen < 5 L 9-23 mg/dL Creatinine 1.08 0.700-1.30 mg/dL Glomerular Filtration Rate Calc 74 >90 mL/min BUN/Creatinine Ratio 4.6 L 10.0-20.0 Serum Glucose 86 74-106 mg/dL Calcium Level 9.2 8.7-10.4 mg/dL B-Type Natriuretic Peptide 32.57 0-100 pg/mL Current Medications Medications (Trade) Dose Ordered Sig/Arnaldo Route Start Time Stop Time Status Last Admin Methylprednisolone Sodium Succinate (Solu Medrol) 125 mg ONCE ONCE IV 10/17/24 09:30 10/17/24 09:31 DC 10/17/24 12:48 Ipratropium [place] (Atrovent Medneb) 1 mg ONCE ONCE HHN 10/17/24 09:30 10/17/24 09:31 DC 10/17/24 10:08 Albuterol (Ventolin Medneb) 10 mg ONCE ONCE HHN 10/17/24 09:30 10/17/24 09:31 DC 10/17/24 10:08 The chest x-ray shows: Findings:Small right pleural effusion.. The heart and mediastinal contours are grossly unremarkable. . The lungs are clear. The bony structures of the chest are intact without fracture.Impression:1. Small right pleural effusion. The patient had a breathing treatment of albuterol and Atrovent. The patient was given Solu-Medrol 125 mg IV push The patient's CBC is within normal limits. The chemistry panel is within normal limits. At this time, the patient is being admitted with a diagnosis of COPD exacerbation Images Reviewed?: Images reviewed and evaluated by me Time of 1ST Reevaluation: 14:11 Reevaluation 1ST: Unchanged Patient Education/Counseling: Diagnosis, Treatment, Prognosis Family Education/Counseling: No Family Present SEPSIS Sepsis Screen Physician Orders Electrocardigram (10/17/24 09:26) Chest Portable (10/17/24 09:28) Heplock Iv (10/17/24 09:28) Pulse Oximetry (10/17/24 09:28) Calliope Player (10/17/24 09:28) Blood Pressure (10/17/24 09:28) Med Neb Initial Treatment (10/17/24 09:28) Vital Signs Date Time Temp Pulse Resp B/P (MAP) Pulse Ox O2 Delivery O2 Flow Rate FiO2 10/17/24 10:08 22 93 Room Air* 0 21 10/17/24 09:25 79 10/17/24 09:23 79 10/17/24 09:20 98.4 85 20 133/84 95 98.4 Laboratory Tests Test 10/17/24 09:38 White Blood Count 9.0 10^3/uL (4.4-10.8) Medications Medications Dose Ordered Sig/Arnaldo Route Start Time Stop Time Status Last Admin Dose Admin Albuterol 10 mg ONCE ONCE [facility] 10/17/24 09:30 10/17/24 09:31 DC 10/17/24 10:08 Ipratropium [place] 1 mg ONCE ONCE [facility] 10/17/24 09:30 10/17/24 09:31 DC 10/17/24 10:08 Methylprednisolone Sodium Succinate 125 mg ONCE ONCE IV 10/17/24 09:30 10/17/24 09:31 DC 10/17/24 12:48 Departure 1 Departure Time of Disposition: 14:11 Impression: Primary Impression: COPD with acute exacerbation Disposition: ADMITTED INPATIENT Admit to: Tele Condition: Fair Critical Care Note Critical Care Time?: Yes (35 min-critical care time only) Stability Stability form required: Yes Unstable for transfer: Telemetry monitoring (Telemetry monitoring required), ED Physician Assesment (Clinical assesment) Heart Score Heart Score: Heart Score Response (Comments) Value History N/A 0 EKG N/A 0 Age N/A 0 Risk Factors N/A 0 Troponin N/A 0 Total 0 I personally scribed for DB CAMPOS MD ([email or web address]) on 10/17/24 at 09:25. Electronically submitted by Ashok Michelle ([email or web address]). I personally scribed for DB CAMPOS MD ([email or web address]) on 10/17/24 at 09:25. Electronically submitted by Ashok Michelle ([email or web address]). DB CAMPOS MD Oct 17, 2024 09:25
[2024-10-17 10:06] LABS: Hematocrit 42.5 % (41.0-53.0); Hemoglobin 14.0 g/dL (13.5-17.5); Mean Corpuscular Hemoglobin 26.4 pg (28.0-32.0); Mean Corpuscular Volume 80.1 fL (80.0-100.0); Nucleated Red Blood Cells % 0.2 %
[2024-10-17] MEDS: IPRATROPIUM BROM 0.5 MG/2.5ML INH SOL HHN ONE (10:08)
[2024-10-17] MEDS: ALBUTEROL SULF 2.5 MG/0.5ML(0.5%) NEB SOLN HHN ONE (10:08)
[2024-10-17 10:10] LABS: Carbon Dioxide 26 mmol/L (20-31)
[2024-10-17 10:11] LABS: Calcium 9.2 mg/dL (8.7-10.4)
[2024-10-17 10:16] LABS: Glucose 86 mg/dL (74-106)
[2024-10-17 10:17] LABS: Anion Gap 9 (5-15); Potassium 4.2 mmol/L (3.5-5.1); Sodium 145 mmol/L (136-145)
[2024-10-17 10:18] LABS: Chloride 110 mmol/L (98-107)
[2024-10-17 10:19] LABS: BUN/Creatinine Ratio 4.6 (10.0-20.0); Blood Urea Nitrogen < 5 mg/dL (9-23)
--- NOTE | 2024-10-17 10:26 | DVH ---
INDICATION: sob TECHNIQUE: Frontal view of the chest. COMPARISON: XY CHEST PORTABLE on DOS: 09/05/24, XY CHEST PORTABLE on DOS: 08/22/24, XY CHEST XRAY 1 VIEW on DOS: 08/01/24, XY CHEST PORTABLE on DOS: 06/15/24, XY CHEST PORTABLE on DOS: 06/13/24 Findings:Small right pleural effusion.. The heart and mediastinal contours are grossly unremarkable. . The lungs are clear. The bony structures of the chest are intact without fracture.Impression:1. Sma ll right pleural effusion.
[2024-10-17] MEDS: methylPREDNISolone SOD SUCC 125 MG/2 ML VL IV ONE (12:48)
[2024-10-17] MEDS ORDERED: ONDANSETRON HCL 4 MG/2 ML VIAL IV PRN (16:15)
[2024-10-17] MEDS ORDERED: DOCUSATE SOD 100 MG CAP PO PRN (16:15)
[2024-10-17] MEDS ORDERED: ASPI-325 PO (16:15)
[2024-10-17] MEDS ORDERED: ACETAMINOPHEN 325 MG TAB PO PRN (16:15)
[2024-10-17] MEDS ORDERED: HYDROcodone-ACET 5/325MG TAB PO PRN (16:15)
[2024-10-17 16:26] VITALS: BP 133/84; PULSE 63; RESP 18; TEMP 99.6; O2SAT 95
--- NOTE | 2024-10-17 17:26 | DVHHP2 ---
History of Present Illness Reason for Visit: Shortness of breath History of Present Illness Brandon Gentile is a 69-year-old male with past medical history of PE, hypertension, hyperlipidemia, COPD, asthma, lung cancer, and CHF, who came to the hospital for shortness of breath. Patient states his shortness of breath began last night. He tried taking his medications at home, but his symptoms continued to worsen prompting him to come to the hospital. Cardiovascular: CHF, HTN, hyperipidemia Pulmonary: Asthma, COPD, Pulmonary embolus [employer]: CVA Heme/Onc: Cancer (lung) Past Surgical History: Other (Partial right lung resection) Smoke: Quit (last year) ALCOHOL: none Drugs: None Lives: with Family Domestic Violence: Neg Review of Systems Constitutional: No: Fever, Chills, Sweats, Weakness, Malaise, Other Eyes: No: Pain, Vision change, Conjunctivae inflammation, Eyelid inflammation, Other, Redness ENT: No: Ear pain, Ear discharge, Nose pain, Nose discharge, Nose congestion, Mouth pain, Mouth swelling, Throat pain, Throat swelling, Other Respiratory: No: Cough, Dry, Shortness of breath, SOB with excertion, Wheezing, Hemoptysis, Pleuritic Pain, Sputum, Wheezing, Other Cardiovascular: No: Chest Pain, Palpitations, Orthopnea, Paroxysmal Noc. Dyspnea, Edema, Lt Headedness, Other Gastrointestinal: No: Nausea, Vomiting, Abdominal Pain, Diarrhea, Constipation, Melena, Hematochezia, Other Genitourinary: No Dysuria, No Frequency, No Incontinence, No Hematuria, No Retention, No Other Musculoskeletal: No: other, neck pain, shoulder pain, arm pain, back pain, hand pain, leg pain, foot pain Skin: No: Rash, Lesions, Jaundice, Bruising, Other Neurological: No: Weakness, Numbness, Incoordination, Change in speech, Confusion, Seizures, Other Allergies: Coded Allergies: NO KNOWN ALLERGIES (Unverified , 03/24/22) Medications Current Medications Medications Dose Ordered Sig/Arnaldo Route Start Time Stop Time Status Last Admin Dose Admin Sodium Chloride 10 ml Q8HR IV 10/17/24 22:00 UNV Acetaminophen/ Hydrocodone Bitart 1 tab Q4HP PRN PO 10/17/24 16:15 UNV Ondansetron HCl 4 mg Q4HP PRN IV 10/17/24 16:15 UNV Docusate Sodium 100 mg BIDPRN PRN PO 10/17/24 16:15 UNV Acetaminophen 650 mg Q6HP PRN PO 10/17/24 16:15 UNV Methylprednisolone Sodium Succinate 40 mg BID IV 10/17/24 22:00 UNV Ipratropium [place] 0.5 mg Q6HWA NEB 10/17/24 18:00 UNV Albuterol 2.5 mg Q6HWA NEB 10/17/24 18:00 UNV Apixaban 5 mg BID PO 10/17/24 22:00 UNV Patient Own Medication 1 tab DAILY PO 10/18/24 10:00 UNV Patient Own Medication 1 tab BID PO 10/17/24 22:00 UNV Aspirin 81 mg DAILY PO 10/18/24 10:00 UNV Exam Vital Signs Vital Signs Date Time Temp Pulse Resp B/P (MAP) Pulse Ox O2 Delivery O2 Flow Rate FiO2 10/17/24 10:08 22 93 Room Air* 0 21 10/17/24 09:25 79 10/17/24 09:20 98.4 133/84 98.4 General Appearance: Alert, Cooperative, No acute distress HEENT: Atraumatic, PERRLA, Mucous membr. moist/pink Respiratory: Other (Diminished and wheezing breath sounds) Cardiovascular: Regular rate, Normal S1, Normal S2 Abdominal: Normal bowel sounds, Soft, No tenderness, No hepatospenomegaly Extremities: No clubbing, No cyanosis, No edema, Normal pulses Skin: No rashes, No breakdown, No significant lesion Neuro: Normal gait, Normal speech, Strength at 5/5 X4 ext Psych/Mental Status: Mental status NL, Mood NL Labs/Xrays Labs Test 10/17/24 09:38 Range/Units White Blood Count 9.0 4.4-10.8 10^3/uL Red Blood Count 5.30 4.5-5.90 10^6/uL Hemoglobin 14.0 13.5-17.5 g/dL Hematocrit 42.5 41.0-53.0 % Mean Corpuscular Volume 80.1 80.0-100.0 fL Mean Corpuscular Hemoglobin 26.4 L 28.0-32.0 pg Mean Corpuscular Hemoglobin Concent 33.0 32.0-36.0 g/dL Red Cell Distribution Width 18.7 H 11.8-14.3 % Platelet Count 307 140-450 10^3/uL Mean Platelet Volume 7.4 6.9-10.8 fL Neutrophils (%) (Auto) 68.3 37.0-80.0 % Lymphocytes (%) (Auto) 12.5 10.0-50.0 % Monocytes (%) (Auto) 6.9 0.0-12.0 % Eosinophils (%) (Auto) 11.2 H 0.0-7.0 % Basophils (%) (Auto) 1.1 0.0-2.0 % Neutrophils # (Auto) 6.2 1.6-8.6 10 ^3/uL Lymphocytes # (Auto) 1.1 0.4-5.4 10 ^3/uL Monocytes # (Auto) 0.6 0-1.3 10 ^3/uL Eosinophils # (Auto) 1.0 H 0-0.8 10 ^3/uL Basophils # (Auto) 0.1 0-0.2 10 ^3/uL Nucleated Red Blood Cells 0.2 % Sodium Level 145 136-145 mmol/L Potassium Level 4.2 3.5-5.1 mmol/L Chloride Level 110 H 98-107 mmol/L Carbon Dioxide Level 26 20-31 mmol/L Anion Gap 9 5-15 Blood Urea Nitrogen < 5 L 9-23 mg/dL Creatinine 1.08 0.700-1.30 mg/dL Glomerular Filtration Rate Calc 74 >90 mL/min BUN/Creatinine Ratio 4.6 L 10.0-20.0 Serum Glucose 86 74-106 mg/dL Calcium Level 9.2 8.7-10.4 mg/dL B-Type Natriuretic Peptide 32.57 0-100 pg/mL TECHNIQUE: Frontal view of the chest. COMPARISON: XY CHEST PORTABLE on DOS: 09/05/24, XY CHEST PORTABLE on DOS: 08/22/24, XY CHEST XRAY 1 VIEW on DOS: 08/01/24, XY CHEST PORTABLE on DOS: 06/15/24, XY CHEST PORTABLE on DOS: 06/13/24 Findings:Small right pleural effusion.. The heart and mediastinal contours are grossly unremarkable. . The lungs are clear. The bony structures of the chest are intact without fracture.Impression:1. Small right pleural effusion. SEPSIS Sepsis Screen Date sepsis recognized/suspect: Oct 17, 2024 Time Sepsis recognized/suspect: 919 Recent Procedure: No On Antibiotic Therapy: No Respiratory Rate >20: No Heart Rate >90: No Temp<36 C (96.8 F) or >38.3 C: No SBP <90 or MAP <65 mmHG: No New Acute Mental Status Change: No Is the patient on CPAP, BIPAP,: No Physician Orders Electrocardigram (10/17/24 09:26) Chest Portable (10/17/24 09:28) Heplock Iv (10/17/24:28) Pulse Oximetry (10/17/24:28) Amphibious Operations Officer (10/17/24:28) Blood Pressure (10/17/24:28) Med Neb Initial Treatment (10/17/24:28) Admit (10/17/24 16:01) Code Status (10/17/24 16:01) Sodium Chloride Lock (Saline Lock Ns) (10/17/24 22:00) Hydrocodone-Acet 5/325mg Tab ([place] 5/32 (10/17/24 16:15) Ondansetron Hcl (Zofran) (10/17/24 16:15) Docusate Sodium Capsule (Colace Capsule) (10/17/24 16:15) Complete Blood Count (10/18/24 04:00) Comprehensive Metabolic Panel (10/18/24 04:00) Cardiac Diet-2gna,Lofat,Lochol (10/17/24 Dinner) Condition: Critical (10/17/24 16:01) Acetaminophen Tablet (Tylenol Tablet) (10/17/24 16:15) Methylprednisolone Sod Succ (Solu Medrol (10/17/24 22:00) Ipratropium Medneb (Atrovent Medneb) (10/17/24 18:00) Albuterol Medneb (Ventolin Medneb) (10/17/24 18:00) Apixaban (Eliquis) (10/17/24 22:00) (Nf) Amlodipine Besylate (10/18/24 10:00) (Nf) Memantine Hydrochloride (Memantine (10/17/24 22:00) Aspirin Enteric Coated Tablet (Ecotrin E (10/18/24 10:00) Vital Signs Date Time Temp Pulse Resp B/P (MAP) Pulse Ox O2 Delivery O2 Flow Rate FiO2 10/17/24 10:08 22 93 Room Air* 0 21 10/17/24 09:25 79 10/17/24 09:23 79 10/17/24 09:20 98.4 85 20 133/84 95 98.4 Laboratory Tests Test 10/17/24 09:38 White Blood Count 9.0 10^3/uL (4.4-10.8) Medications Medications Dose Ordered Sig/Arnaldo Route Start Time Stop Time Status Last Admin Dose Admin Albuterol 10 mg ONCE ONCE HHN 10/17/24 09:30 10/17/24 09:31 DC 10/17/24 10:08 10 MG Ipratropium [place] 1 mg ONCE ONCE HHN 10/17/24 09:30 10/17/24 09:31 DC 10/17/24 10:08 1 MG Methylprednisolone Sodium Succinate 125 mg ONCE ONCE IV 10/17/24 09:30 10/17/24 09:31 DC 10/17/24 12:48 125 MG Assessment/Plan Assessment/Plan Assessment: COPD with acute exacerbation, Hypoxic respiratory distress, Pleural effusion, CHF, Asthma, Hypertension, PE, Plan: Admit to Med-Surg, IV steroids, IV antibiotics, Breathing treatments as needed, Supplemental oxygen, Home medications reconciled, Plan discussed with: Patient My Orders Orders - JASON SAMSON Procedure Category Date Status Time Admit ADMIT 10/17/24 Transmitted 16:01 Code Status CODE 10/17/24 Transmitted 16:01 Sodium Chloride Lock PHA 10/17/24 Logged (Saline Lock Ns) 22:00 Hydrocodone-Acet PHA 10/17/24 Logged 5/325mg Tab ([place] 16:15 Ondansetron Hcl PHA 10/17/24 Logged (Zofran) 16:15 Docusate Sodium PHA 10/17/24 Logged Capsule (Colace 16:15 Complete Blood Count LAB 10/18/24 Verified 04:00 Comprehensive LAB 10/18/24 Verified Metabolic Panel 04:00 Cardiac DIET 10/17/24 Transmitted Diet-2gna,Lofat,Lochol Dinner Condition: Critical LINDSAY 10/17/24 In Process 16:01 Acetaminophen Tablet PHA 10/17/24 Logged (Tylenol Tablet) 16:15 Methylprednisolone PHA 10/17/24 Logged Sod Succ (Solu Medrol 22:00 Ipratropium Medneb PHA 10/17/24 Logged (Atrovent Medneb) 18:00 Albuterol Medneb PHA 10/17/24 Logged (Ventolin Medneb) 18:00 Apixaban (Eliquis) PHA 10/17/24 Logged 22:00 (Nf) Amlodipine PHA 10/18/24 Logged Besylate 10:00 (Nf) Memantine PHA 10/17/24 Logged Hydrochloride 22:00 Aspirin Enteric PHA 10/18/24 Logged Coated Tablet 10:00 Date of Service: Oct 17, 2024 Billing Provider: JASON SAMSON Common Visit Codes: [id number] INP/OBS CARE (MOD) JASON SAMSON Oct 17, 2024 17:26
[2024-10-17] MEDS: IPRATROPIUM BROM 0.5 MG/2.5ML INH SOL NEB SCH (17:47)
[2024-10-17] MEDS: ALBUTEROL SULF 2.5 MG/0.5ML(0.5%) NEB SOLN NEB SCH (17:47)
[2024-10-17 18:00] VITALS: PULSE 74; RESP 20; O2SAT 98
[2024-10-17 18:10] VITALS: PULSE 75; RESP 20; O2SAT 100
[2024-10-17] MEDS: SODIUM CHLOR 0.9% PF (SALINE LOCK) 10ML VIAL/SYR IV SCH (22:00)
[2024-10-17 23:00] VITALS: PULSE 99; RESP 20; O2SAT 94
[2024-10-17 23:10] VITALS: PULSE 99; RESP 20; O2SAT 100
[2024-10-17] MEDS: methylPREDNISolone SOD SUCC 40 MG/ML VL IV SCH (23:48)
[2024-10-17] MEDS: ALBUTEROL SULF 2.5 MG/0.5ML(0.5%) NEB SOLN ONE (23:50)
[2024-10-17] MEDS: IPRATROPIUM BROM 0.5 MG/2.5ML INH SOL NEB PRN (23:56)
[2024-10-17] MEDS: ALBUTEROL SULF 2.5 MG/0.5ML(0.5%) NEB SOLN NEB PRN (23:56)
[2024-10-17] MEDS: APIXABAN 5 MG TAB PO SCH (23:59)
[2024-10-18] VITALS (11 sets, daily range): BP systolic 119–145; BP diastolic 75–91; PULSE 71–89; RESP 16–20; TEMP 97.4–98.3; O2SAT 94–100
[2024-10-18] MEDS: MEMANTINE HCL 5 MG TAB PO SCH (00:01)
[2024-10-18 06:28] LABS: Mean Corpuscular Hemoglobin 26.3 pg (28.0-32.0); Nucleated Red Blood Cells % 0.0 %
[2024-10-18 06:31] LABS: Hematocrit 40.7 % (41.0-53.0); Hemoglobin 13.3 g/dL (13.5-17.5); Mean Corpuscular Volume 80.2 fL (80.0-100.0)
[2024-10-18 06:37] LABS: Alanine Aminotransferase 16 U/L (7-40); Albumin 4.0 g/dL (3.2-4.8); Alkaline Phosphatase 110 U/L (46-116); Anion Gap 9 (5-15); Calcium 9.0 mg/dL (8.7-10.4); Carbon Dioxide 26 mmol/L (20-31); Potassium 4.3 mmol/L (3.5-5.1); Sodium 143 mmol/L (136-145); Total Protein 6.2 g/dL (5.7-8.2)
[2024-10-18 07:10] LABS: Bilirubin, Total 0.3 mg/dL (0.2-1.0); Chloride 108 mmol/L (98-107); Glucose 197 mg/dL (74-106)
[2024-10-18 08:25] LABS: BUN/Creatinine Ratio 10.9 (10.0-20.0); Blood Urea Nitrogen 12 mg/dL (9-23)
[2024-10-18] MEDS: ASPirin-EC 81 mg tab PO SCH (09:38)
--- NOTE | 2024-10-18 13:26 | DVHPN2 ---
Reviewed: Care Plan, H&P, Labs, Medications, Previous Orders, Radiology Changes from previous H/P or p: No Changes Eyes: No Pain, No Vision change, No Conjunctivae inflammation, No Eyelid inflammation, No Other, No Redness ENT: No Ear pain, No Ear discharge, No Nose pain, No Nose discharge, No Nose congestion, No Mouth pain, No Mouth swelling, No Throat pain, No Throat swelling, No Other Cardiovascular: No Chest Pain, No Palpitations, No Orthopnea, No Paroxysmal Noc. Dyspnea, No Edema, No Lt Headedness, No Other Respiratory: No Cough, No Dry, No Shortness of breath, No SOB with excertion, No Wheezing, No Hemoptysis, No Pleuritic Pain, No Sputum, No Other Gastrointestinal: No Nausea, No Vomiting, No Abdominal Pain, No Diarrhea, No Constipation, No Melena, No Hematochezia, No Other Genitourinary: No Dysuria, No Frequency, No Incontinence, No Hematuria, No Retention, No Other Musculoskeletal: No other, No neck pain, No shoulder pain, No arm pain, No back pain, No hand pain, No leg pain, No foot pain Skin: No Rash, No Lesions, No Jaundice, No Bruising, No Other Objective Vitals Vital Signs Date Time Temp Pulse Resp B/P (MAP) Pulse Ox O2 Delivery O2 Flow Rate FiO2 10/18/24 12:35 97.8 71 18 132/80 (97) 94 97.8 10/18/24 09:50 Nasal Cannula 2.0 10/18/24 09:50 28 Intake/Output Intake and Output 10/18/24 07:00 Intake Total 210 ml Output Total 250 ml Balance -40 ml Intake Oral 210 ml Output Urine Total 250 ml Medications Current Medications Medications Dose Ordered Sig/Arnaldo Route Start Time Stop Time Status Last Admin Dose Admin Sodium Chloride 10 ml Q8HR IV 10/17/24 22:00 10/18/24 05:05 10 ML Acetaminophen/ Hydrocodone Bitart 1 tab Q4HP PRN PO 10/17/24 16:15 Ondansetron HCl 4 mg Q4HP PRN IV 10/17/24 16:15 Docusate Sodium 100 mg BIDPRN PRN PO 10/17/24 16:15 Acetaminophen 650 mg Q6HP PRN PO 10/17/24 16:15 Methylprednisolone Sodium Succinate 40 mg BID IV 10/17/24 22:00 10/18/24 09:38 40 MG Apixaban 5 mg BID PO 10/17/24 22:00 10/18/24 09:38 5 MG Amlodipine Besylate 10 mg DAILY PO 10/18/24 10:00 10/18/24 09:39 10 MG Memantine 10 mg BID PO 10/17/24 22:00 10/18/24 09:38 10 MG Aspirin 81 mg DAILY PO 10/18/24 10:00 10/18/24 09:38 81 MG Ceftriaxone Sodium 50 ml @ 100 mls/hr DAILY@09 IV 10/18/24 09:00 10/18/24 09:38 100 MLS/HR Albuterol 2.5 mg Q6HPRN PRN NEB 10/17/24 23:30 10/18/24 09:50 2.5 MG Ipratropium [place] 0.5 mg Q6HPRN PRN NEB 10/17/24 23:30 10/18/24 09:50 0.5 MG Laboratory Results Laboratory Tests 10/18/24 05:54 Chemistry Test 10/18/24 05:54 Albumin 4.0 g/dL (3.2-4.8) Calcium Level 9.0 mg/dL (8.7-10.4) Total Protein 6.2 g/dL (5.7-8.2) LFT Test 10/18/24 05:54 Alanine Aminotransferase (ALT) 16 U/L (7-40) Alkaline Phosphatase 110 U/L (46-116) Aspartate Amino Transferase (AST) 17 U/L (13-40) Total Bilirubin 0.3 mg/dL (0.2-1.0) Labs and/or images reviewed: Labs reviewed by me, Image(s) reviewed by me Assessment/Plan Assessment/Plan Acute hypoxic respiratory failure: Oxygen by nasal cannula COPD with acute exacerbation, albuterol Atrovent Solu-Medrol Pleural effusion, CHF, Asthma, Hypertension, PE History of lung cancer status post right lower lobe lobectomy Time Spent 70 minutes Advanced care planning time 20 minutes Patient is full code Plan discussed with: Patient Date of Service: Oct 18, 2024 Billing Provider: VALERIO HOLDER MD Common Visit Codes: [id number] CARE 30-74 MIN VALERIO HOLDER MD Oct 18, 2024 13:26
[2024-10-19] VITALS (10 sets, daily range): BP systolic 111–144; BP diastolic 70–89; PULSE 50–80; RESP 17–20; TEMP 98–98.7; O2SAT 90–100
--- NOTE | 2024-10-19 10:54 | DVHPN2 ---
Reviewed: Care Plan, H&P, Labs, Medications, Previous Orders, Radiology Changes from previous H/P or p: No Changes Eyes: No Pain, No Vision change, No Conjunctivae inflammation, No Eyelid inflammation, No Other, No Redness ENT: No Ear pain, No Ear discharge, No Nose pain, No Nose discharge, No Nose congestion, No Mouth pain, No Mouth swelling, No Throat pain, No Throat swelling, No Other Cardiovascular: No Chest Pain, No Palpitations, No Orthopnea, No Paroxysmal Noc. Dyspnea, No Edema, No Lt Headedness, No Other Respiratory: No Cough, No Dry, No Shortness of breath, No SOB with excertion, No Wheezing, No Hemoptysis, No Pleuritic Pain, No Sputum, No Other Gastrointestinal: No Nausea, No Vomiting, No Abdominal Pain, No Diarrhea, No Constipation, No Melena, No Hematochezia, No Other Genitourinary: No Dysuria, No Frequency, No Incontinence, No Hematuria, No Retention, No Other Musculoskeletal: No other, No neck pain, No shoulder pain, No arm pain, No back pain, No hand pain, No leg pain, No foot pain Skin: No Rash, No Lesions, No Jaundice, No Bruising, No Other Objective Vitals Vital Signs Date Time Temp Pulse Resp B/P (MAP) Pulse Ox O2 Delivery O2 Flow Rate FiO2 10/19/24 09:33 123/80 10/19/24 09:00 98.7 70 18 90 98.7 10/18/24 20:30 Nasal Cannula* 2 28 Intake/Output Intake and Output 10/19/24 07:00 Intake Total 2200 ml Output Total 2075 ml Balance 125 ml Intake Oral 2150 ml IV Total 50 ml Output Urine Total 2075 ml Medications Current Medications Medications Dose Ordered Sig/Arnaldo Route Start Time Stop Time Status Last Admin Dose Admin Sodium Chloride 10 ml Q8HR IV 10/17/24 22:00 10/19/24 05:10 10 ML Acetaminophen/ Hydrocodone Bitart 1 tab Q4HP PRN PO 10/17/24 16:15 Ondansetron HCl 4 mg Q4HP PRN IV 10/17/24 16:15 Docusate Sodium 100 mg BIDPRN PRN PO 10/17/24 16:15 Acetaminophen 650 mg Q6HP PRN PO 10/17/24 16:15 Methylprednisolone Sodium Succinate 40 mg BID IV 10/17/24 22:00 10/19/24 09:33 40 MG Apixaban 5 mg BID PO 10/17/24 22:00 10/19/24 09:32 5 MG Amlodipine Besylate 10 mg DAILY PO 10/18/24 10:00 10/19/24 09:33 10 MG Memantine 10 mg BID PO 10/17/24 22:00 10/19/24 09:33 10 MG Aspirin 81 mg DAILY PO 10/18/24 10:00 10/19/24 09:33 81 MG Ceftriaxone Sodium 50 ml @ 100 mls/hr DAILY@09 IV 10/18/24 09:00 10/19/24 09:32 100 MLS/HR Albuterol 2.5 mg Q6HPRN PRN NEB 10/17/24 23:30 10/18/24 20:30 2.5 MG Ipratropium [place] 0.5 mg Q6HPRN PRN NEB 10/17/24 23:30 10/18/24 20:30 0.5 MG Laboratory Results Laboratory Tests 10/18/24 05:54 Labs and/or images reviewed: Labs reviewed by me, Image(s) reviewed by me Assessment/Plan Assessment/Plan Acute hypoxic respiratory failure: Oxygen by nasal cannula COPD with acute exacerbation, albuterol Atrovent Solu-Medrol Pleural effusion, CHF, Asthma, Hypertension, PE History of lung cancer status post right lower lobe lobectomy Recurrent right inguinal hernia: Surgical consult for Dr Anderson Time Spent 50 minutes Advanced care planning time 20 minutes Patient is full code Plan discussed with: Patient Date of Service: Oct 19, 2024 Billing Provider: VALERIO HOLDER MD Common Visit Codes: [id number] INP/OBS CARE(HIGH) VALERIO HOLDER MD Oct 19, 2024 10:54
--- NOTE | 2024-10-19 12:44 | DVH ---
Indication: Recurrent Right inguinal hernia Technique: CT axial images of the abdomen and pelvis are obtained without contrast. Coronal and sagit estefani reformats were obtained. Radiation Dose Information: CTDI volume is 5.21 mGy. Dose-length product is 304 mGy*cm Comparison: CT ABD/PEL on DOS: 04/19/24, CT CT AB PEL WO CON-NO ORAL OR IV on DOS: 07/02/23 FINDINGS: There is limited interpretation of the abdomen and pelvis without administration of intravenous contr ast. Lung bases demonstrate pulmonary emphysematous changes. Bilateral atelectasis. Adrenal glands, spleen, pancreas unremarkable in shape. Liver unremarkable in shape. No CT evidence for cholelithiasis. There is no hydronephrosis, nephrolithiasis. Stomach is moderately distended. Small bowel loops are moderately distended. Moderate volume stool in the colon. There is a right inguinal hernia containing small and large bowel measuring 7.1 x 13.4 cm. There is f luid within the hernia. Neck of the hernia is narrow measuring 2 cm. Abdominal aortic atherosclerotic disease. Bladder partially distended. Moderate bilateral sacroiliac degenerative joint disease. [id number] thoracolumbar degenerative disc disease. IMPRESSION: Limited evaluation without contrast. Large right inguinal hernia containing bowel measuring 13.4 x 7.1 cm. The neck of the hernia is narr ow measuring 2 cm. There is fluid/ edema in the hernia raising concern for incarceration / strangula tion. Recommend surgical consultation for further management. Moderate volume stool in the colon. Moderate distention small bowel loops. Atherosclerotic disease. Pulmonary emphysema Other findings as described.
--- NOTE | 2024-10-19 16:19 | DVHINCON2 ---
Date of service: Oct 19, 2024 Reason for Consultation inguinal hernia History of Present Illness HPI 69 year old male who presented to the ER with Shortness of breath. His shortness of breath progressivley got worse and no relief from home medications. Home Meds Active Scripts Umeclidinium-Vilanterol (Anoro Ellipta 62.5-25 Mcg/INH) 1 Aer Aer, 1 AER IN DAILY for 30 Days, #1 AER 2 Refills Prov:BIRDIE AIKEN 09/07/24 Ipratropium-Albuterol (Ipratropium [place]/Albut) 1 Amanda Amanda, 2 PUFF INH PRN PRN for SHORTNESS OF BREATH for 30 Days, #3 PUFF Prov:BIRDIE AIKEN 09/07/24 Albuterol Sulfate (VENTOLIN MDI) 90 Mcg Ih, 90 MCG IN QID PRN, #1 INH Prov:VALERIO HOLDER MD 06/16/24 Amlodipine Besylate (Amlodipine Besylate) 10 Mg Tab, 1 TAB PO DAILY, #90 TAB 1 Refill Prov:VALERIO HOLDER MD 07/17/21 Apixaban Base (ELIQUIS) 5 Mg Tab, 5 MG PO BID for 90 Days, #180 TAB Prov:DORIS DIAZ MD 06/18/20 Reported Medications Aspirin (Aspirin Low Dose) 81 Mg Tab, 1 TAB PO DAILY 10/17/24 Albuterol Sulfate (Albuterol Sulfate Hfa) 108 Mcg/Act Aer, 2 PUFF INH Q6HR 04/07/23 Memantine Hydrochloride (Memantine HCl) 10 Mg Tab, 1 TAB PO BID 04/06/23 Discontinued Scripts Azithromycin (Azithromycin) 500 Mg Tab, 500 MG PO DAILY for 5 Days, #5 TAB Prov:BIRDIE AIKEN 09/07/24 Prednisone (Prednisone) 20 Mg Tab, 40 MG PO DAILY for 5 Days, #10 TAB Prov:BIRDIE AIKEN 09/07/24 Azithromycin (Azithromycin) 500 Mg Tab, 1 TAB PO DAILY, #7 TAB Prov:VALERIO HOLDER MD 06/16/24 Past Medical History Cardiac: CHF, HTN, Hyperlipidemia Pulmonary: Asthma, Lung cancer Central Nervous System: CVA GI: No pertinent Hx Hemotology/Oncology: No pertinent Hx Hepatobiliary: No pertinent Hx Psychiatric: No pertinent Hx Musculoskeletal: No pertinent Hx Rheumotologic: No pertinent Hx Infectious Disease: No peritnent Hx ENT: No pertinent Hx Renal/: No pertinent Hx Endocrine: No pertinent Hx Dermatology: No pertinent Hx Past Surgical History: Hernia repair Others lung resection Patient Family History: Alzheimer's disease FH: cancer G8 MOTHER G8 FATHER FH: heart attack G8 MOTHER, FHx: cancer of prostate G8 FATHER, Hypertension G8 MOTHER, G8 FATHER, Smoker: No Hx (Negative) Alocohol: None Drugs: None Review of Systems Constitutional: No symptom reported Ears, Nose, & Throat: No symptom reported Eyes: No symptom reported Pulmonary/Respiratory: No symptom reported Cardiovascular: No symptom reported Gastrointestinal: No symptom reported Genitourinary: No symptom reported Musculoskeletal: No symptom reported Skin: No symptom reported Psychiatric: No symptom reported Endocrine: No symptom reported Hemotologic/Lymphatic: No symptom reported H&P Exam Vital Signs Vital Signs Date Time Temp Pulse Resp B/P (MAP) Pulse Ox O2 Delivery O2 Flow Rate FiO2 10/19/24 12:27 98.6 56 20 130/77 (94) 91 98.6 10/19/24 12:03 Nasal Cannula 2.0 10/19/24 12:03 28 General Appeara: Well developed, Well nourished Head Exam: Normal inspection Eye Exam: bilateral eye Normal inspection Nasal Exam: Normal inspection Mouth: Normal Inspection Pulmonary/Respiratory: Normal inspection Cardiovascular/Chest: Normal inspection Abdominal Exam: Normal bowel sounds Neuro/Mental St: Alert, Oriented Appearance: Appropriate appearance Eye contact/ Speech: Cooperative, Good eye contact Labs/Xrays Labs Test 10/18/24 05:54 10/17/24 09:38 Range/Units White Blood Count 12.9 #H 4.4-10.8 10^3/uL Red Blood Count 5.08 4.5-5.90 10^6/uL Hemoglobin 13.3 L 13.5-17.5 g/dL Hematocrit 40.7 L 41.0-53.0 % Mean Corpuscular Volume 80.2 80.0-100.0 fL Mean Corpuscular Hemoglobin 26.3 L 28.0-32.0 pg Mean Corpuscular Hemoglobin Concent 32.8 32.0-36.0 g/dL Red Cell Distribution Width 18.7 H 11.8-14.3 % Platelet Count 296 140-450 10^3/uL Mean Platelet Volume 7.3 6.9-10.8 fL Neutrophils (%) (Auto) 94.7 H 37.0-80.0 % Lymphocytes (%) (Auto) 4.0 L 10.0-50.0 % Monocytes (%) (Auto) 0.9 0.0-12.0 % Eosinophils (%) (Auto) 0.1 0.0-7.0 % Basophils (%) (Auto) 0.3 0.0-2.0 % Neutrophils # (Auto) 12.2 H 1.6-8.6 10 ^3/uL Lymphocytes # (Auto) 0.5 0.4-5.4 10 ^3/uL Monocytes # (Auto) 0.1 0-1.3 10 ^3/uL Eosinophils # (Auto) 0 0-0.8 10 ^3/uL Basophils # (Auto) 0 0-0.2 10 ^3/uL Nucleated Red Blood Cells 0.0 % Sodium Level 143 136-145 mmol/L Potassium Level 4.3 3.5-5.1 mmol/L Chloride Level 108 H 98-107 mmol/L Carbon Dioxide Level 26 20-31 mmol/L Anion Gap 9 5-15 Blood Urea Nitrogen 12 9-23 mg/dL Creatinine 1.10 0.700-1.30 mg/dL Glomerular Filtration Rate Calc 73 >90 mL/min BUN/Creatinine Ratio 10.9 10.0-20.0 Serum Glucose 197 #H 74-106 mg/dL Calcium Level 9.0 8.7-10.4 mg/dL Total Bilirubin 0.3 0.2-1.0 mg/dL Aspartate Amino Transferase (AST) 17 13-40 U/L Alanine Aminotransferase (ALT) 16 7-40 U/L Alkaline Phosphatase 110 46-116 U/L Total Protein 6.2 5.7-8.2 g/dL Albumin 4.0 3.2-4.8 g/dL B-Type Natriuretic Peptide 32.57 0-100 pg/mL Assessment/Plan Primary Diagnosis inguinal hernia Plan recurrent right inguinal hernia , no pain no surgical intervention , patient to follow up with surgery once his pulmonary status stabalizes discussed with and agrees with plan Plan discussed with: Patient, Other (Dr. Anderson ) Visit Coding Surgery Date of Service if different f: Oct 19, 2024 Billing Provider: MANDY ANDERSON MD Surgery Visit Codes: 18489 - INP CONSULT <[address] NP Oct 19, 2024 16:19
[2024-10-20 01:00] VITALS: BP 136/84; PULSE 73; RESP 18; TEMP 97.1; O2SAT 90
[2024-10-20 05:00] VITALS: BP 125/73; PULSE 64; RESP 17; TEMP 97.9; O2SAT 99
[2024-10-20 09:00] VITALS: BP 121/64; PULSE 70; RESP 19; TEMP 98; O2SAT 96
[2024-10-20] MEDS ORDERED: AZIT500T66 PO (09:56)
[2024-10-20] MEDS ORDERED: ALBUAER3 IN (09:56)
[2024-10-20] MEDS ORDERED: PRED20TA2 PO (09:56)
[2024-10-20 10:00] VITALS: O2SAT 96
--- NOTE | 2024-10-20 10:01 | DVHDS2 ---
Discharge Summary Date of Admission Oct 17, 2024 at 16:01 Date of Discharge: Oct 20, 2024 Admitting Diagnosis Shortness of breath Wounds: None Labs/Diagnostic Data: Laboratory Results Test 10/18/24 05:54 10/17/24 09:38 White Blood Count 12.9 10^3/uL (4.4-10.8) Red Blood Count 5.08 10^6/uL (4.5-5.90) Hemoglobin 13.3 g/dL (13.5-17.5) Hematocrit 40.7 % (41.0-53.0) Mean Corpuscular Volume 80.2 fL (80.0-100.0) Mean Corpuscular Hemoglobin 26.3 pg (28.0-32.0) Mean Corpuscular Hemoglobin Concent 32.8 g/dL (32.0-36.0) Red Cell Distribution Width 18.7 % (11.8-14.3) Platelet Count 296 10^3/uL (140-450) Mean Platelet Volume 7.3 fL (6.9-10.8) Neutrophils (%) (Auto) 94.7 % (37.0-80.0) Lymphocytes (%) (Auto) 4.0 % (10.0-50.0) Monocytes (%) (Auto) 0.9 % (0.0-12.0) Eosinophils (%) (Auto) 0.1 % (0.0-7.0) Basophils (%) (Auto) 0.3 % (0.0-2.0) Neutrophils # (Auto) 12.2 10 ^3/uL (1.6-8.6) Lymphocytes # (Auto) 0.5 10 ^3/uL (0.4-5.4) Monocytes # (Auto) 0.1 10 ^3/uL (0-1.3) Eosinophils # (Auto) 0 10 ^3/uL (0-0.8) Basophils # (Auto) 0 10 ^3/uL (0-0.2) Nucleated Red Blood Cells 0.0 % Sodium Level 143 mmol/L (136-145) Potassium Level 4.3 mmol/L (3.5-5.1) Chloride Level 108 mmol/L (98-107) Carbon Dioxide Level 26 mmol/L (20-31) Anion Gap 9 (5-15) Blood Urea Nitrogen 12 mg/dL (9-23) Creatinine 1.10 mg/dL (0.700-1.30) Glomerular Filtration Rate Calc 73 mL/min (>90) BUN/Creatinine Ratio 10.9 (10.0-20.0) Serum Glucose 197 mg/dL (74-106) Calcium Level 9.0 mg/dL (8.7-10.4) Total Bilirubin 0.3 mg/dL (0.2-1.0) Aspartate Amino Transferase (AST) 17 U/L (13-40) Alanine Aminotransferase (ALT) 16 U/L (7-40) Alkaline Phosphatase 110 U/L (46-116) Total Protein 6.2 g/dL (5.7-8.2) Albumin 4.0 g/dL (3.2-4.8) B-Type Natriuretic Peptide 32.57 pg/mL (0-100) Other Laboratory Tests 10/18/24 05:54 Brief Hx & Hospital Course: 69-year-old male with CHF asthma hypertension PE history of lung cancer status post right lower lobectomy chronic oxygen dependent came in for shortness of breaths found to have acute COPD exacerbation treated with albuterol Atrovent Solu-Medrol. Patient also had right inguinal hernia seen by surgeon Dr. Anderson, advised outpatient follow up after stabilization patient feels better and wants to go home on 3 L of oxygen which is his usual requirement at home prescriptions transmitted to the pharmacy. Consults/Reason for consult Surgery Dr. Anderson Operations or Procedures None Condition at Discharge: Fair Final Diagnosis/Problems List Acute hypoxic respiratory failure: Oxygen by nasal cannula COPD with acute exacerbation, albuterol Atrovent Solu-Medrol Pleural effusion, CHF, Asthma, Hypertension, PE History of lung cancer status post right lower lobe lobectomy Recurrent right inguinal hernia: Surgical consult for Dr Anderson advised outpatient follow up for elective surgery Discharge Disposition: Home Discharge Instruct/Medications Diet: Cardiac 2g Na,low cholest Activity: Light activity Follow Up/Referral: Follow up with your primary Dr Follow up with surgeon Dr. Anderson for hernia surgery in two weeks Medications: Prednisone Azithromycin Albuterol MDI Transmitted to [facility] Scheduled Albuterol Sulfate (Albuterol Sulfate Hfa), 2 PUFF INH Q6HR, (Reported) Amlodipine Besylate (Amlodipine Besylate), 1 TAB PO DAILY Apixaban Base (Eliquis), 5 MG PO BID Aspirin (Aspirin Low Dose), 1 TAB PO DAILY, (Reported) Azithromycin (Azithromycin), 1 TAB PO DAILY Memantine Hydrochloride (Memantine HCl), 1 TAB PO BID, (Reported) Prednisone (Prednisone), 20 MG PO DAILY Umeclidinium-Vilanterol (Anoro Ellipta 62.5-25 Mcg/INH), 1 AER IN DAILY Scheduled PRN Albuterol Sulfate (Ventolin Mdi), 90 MCG IN QID PRN Albuterol Sulfate (Ventolin Mdi), 90 MCG IN QID PRN Ipratropium-Albuterol (Ipratropium [place]/Albut), 2 PUFF INH PRN PRN for SHORTNESS OF BREATH Discontinued Medications Azithromycin (Azithromycin), 1 TAB PO DAILY Azithromycin (Azithromycin), 500 MG PO DAILY Prednisone (Prednisone), 40 MG PO DAILY 39 (Time taken for discharge summary 39 minutes) Discharge Statement: "Patient was advised to return to the ER or call 911 if any headaches, dizziness, shortness of breath, chest pain, abdominal pain, bleeding, fevers, or worsening of medical condition. Patient was counseled about treatment plan, medications, possible side effects, patientverbalized understanding. All questions were answered to the best of my ability. This discharge took greater then 30 minutes in planning, reviewing documentation, counseling the patient, and discussing with other team members." ASSESSMENT ASSESSMENT Hospital Course Improved Assessment Acute hypoxic respiratory failure: Oxygen by nasal cannula COPD with acute exacerbation, albuterol Atrovent Solu-Medrol Pleural effusion, CHF, Asthma, Hypertension, PE History of lung cancer status post right lower lobe lobectomy Recurrent right inguinal hernia: Surgical consult for Dr Anderson advised outpatient follow up for elective surgery Date of Service: Oct 20, 2024 Billing Provider: VALERIO HOLDER MD Common Visit Codes: 12060-MAN/OBS DISCH DAY >30min VALERIO HOLDER MD Oct 20, 2024 10:01
[2024-10-20 11:03] VITALS: BP 121/64
--- NOTE | 2024-10-20 11:44 | ECG ---
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
[2024-10-20 13:00] VITALS: BP 131/80; PULSE 64; RESP 19; TEMP 98.2; O2SAT 100
== END 2024-10-20 13:57 | disposition home or self-care (01) | DRG 189 ==
LOC: ER 09:19 → EDBD 09:19 → EDSEX 09:19 → OVERFLOW 16:01 → EAST 10-18 01:33
PROVIDERS: ADMIT Family Medicine; ATTEND Family Medicine
DX: J96.01 Acute respiratory failure with hypoxia (principal); J44.1 Chronic obstructive pulmonary disease with (acute) exacerbation; I50.9 Heart failure, unspecified; I11.0 Hypertensive heart disease with heart failure; Z99.81 Dependence on supplemental oxygen; K40.91 Unilateral inguinal hernia, without obstruction or gangrene, recurrent; E78.5 Hyperlipidemia, unspecified; I25.2 Old myocardial infarction; Z90.2 Acquired absence of lung [part of]; Z87.891 Personal history of nicotine dependence; Z79.899 Other long term (current) drug therapy; Z86.73 Personal history of transient ischemic attack (TIA), and cerebral infarction without residual deficits; Z86.711 Personal history of pulmonary embolism; Z85.118 Personal history of other malignant neoplasm of bronchus and lung; Z79.82 Long term (current) use of aspirin; Z79.01 Long term (current) use of anticoagulants; Z80.42 Family history of malignant neoplasm of prostate; Z81.8 Family history of other mental and behavioral disorders; Z82.49 Family history of ischemic heart disease and other diseases of the circulatory system
CPT/HCPCS: 36415; 71045; 74176; 80048; 80053; 83880; 85025; 93005; 94640; 94644; 96374; 99291; G0378

== ENCOUNTER 2024-11-07 14:37 | Inpatient (IN) | payer MEDICARE, MEDICAID ==
[~2024-11-07] VITALS: Ht 165.1 cm; Wt 61.7 kg
[~2024-11-07 14:37] MED LIST changes: +ASPI-325 PO; +HYDR25TA5 PO
[2024-11-07 14:40] VITALS: PULSE 119; RESP 23; O2SAT 100
[2024-11-07] MEDS: FUROSEMIDE 100 MG/10ML VIAL IV ONE (15:00)
--- NOTE | 2024-11-07 15:01 | ECG ---
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
[2024-11-07] MEDS: IPRATROPIUM BROM 0.5 MG/2.5ML INH SOL NEB ONE (15:10)
[2024-11-07] MEDS: ALBUTEROL SULF 2.5 MG/0.5ML(0.5%) NEB SOLN NEB ONE (15:10)
--- NOTE | 2024-11-07 15:14 | ED.PDOC ---
SOB-HPI HPI Comments HPI: 69 y/o M, with PMHx of CHF, COPD, CVA, CA, PE, Asthma, and Lung Cancer is BIBA for CC of respiratory distress. 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 Per EMS, upon arrival to scene patient was stating at 89% on R.A. In route to the ED, patient was placed on C-Pap to improve saturation. Patient reports being non-complaint with all medications. patient has history, of x1 previous intubation. No other symptoms or modifying factors are present at this time. Initial Vitals BP: HR: RR: O2 Sat: Temp: Past Medical history: CHF, COPD, CVA, CA, PE, Asthma, Lung Cancer Past Surgical history: DENIES ANY Medications: DENIES ANY Social History: Denies smoking, ETOH, and drug use. Allergies: NKDA HPI: Poor Historian. REVIEW OF SYSTEMS: CONSTITUTIONAL: Denies acute: fever, diaphoresis, chills, HEAD: Denies acute: headache, photophobia Eyes: Denies acute: Double vision, vision loss, eye pain, eye discharge. EARS: Denies acute: tinnitus, hearing loss, ear discharge, ear pain, THROAT: Denies acute: sore throat, swelling, difficulty swallowing , pain with swallowing, change in voice. NECK: Denies acute: neck pain, neck swelling, stiff neck. HEART: Denies acute : chest pain, palpitations, LUNGS: Denies acute: wheezing, cough, hemoptysis ABDOMEN: Denies acute: abdominal pain, Nausea, Vomiting, diarrhea, melena , hematemesis, hematochezia SKIN: Denies acute: rash, redness, lesions, itchiness. EXTREMITIES: Denies acute: calf pain, numbness, tingling, weakness, denies pain in extremity. Denies acute: Low back pain. Neuro: Denies acute: focal neurological deficit, motor or sensory focal neurological deficit, tremors, seizure like activity, confusion, dizziness, change in mental status, loss of bowel or bladder function, cauda equina like symptoms. : Denies acute: dysuria, hematuria, flank pain, increase in urinary frequency. PSYCH: Denies acute: hallucination, suicidal ideation, homicidal ideation. PHYSICAL EXAM: General: ----moderate----acute distress, awake and alert. Head: normocephalic, atraumatic. Neck: supple, trachea is midline, no swelling. Throat: Normal phonation. Eyes:, no erythema, no purulent discharge, no proptosis, no icterus. Heart: regular tachycardia, no significant murmur appreciated. Lungs: Moderate respiratory distress, Bilateral wheezing, no rhonchi, no crackles. No stridors Abdomen: non tender to palpation, non distended, soft, no guarding, no rebound, + bowel sounds. Neuro: Awake, Alert, oriented to name, self, situation, follows commands GCS=15. Speech is normal. Skin: no petechia, no purpura, no cyanosis, non-pale, not jaundice. Lower extremities: --no - Pitting edema no deformity, no focal swelling, no calf TTP. Makes eye contact. moves all four extremities. Face: no apparent facial droop. ED COURSE: DISCLAIMER: This medical document was created using an electronic medical record system with voice recognition software and computerized dictation system. Although this document has been carefully reviewed, there might still be some phonetic and typographical errors. Occasional wrong-word or "sound-alike" substitutions may have occurred due to the inherent limitations of voice recognition software. These areas are purely typographical due to imperfections of the software programs and do not reflect any compromise in the patient's medical care. Please read the chart carefully and recognize, using context, where these substitutions have occurred. Chief Complaint: Shortness of Breath Time Seen by MD: 14:45 Primary Care Provider: NONE Reviewed notes: Nurses Notes, Emergency Planner Notes, Medications, Allergies Information Source: Patient, Emergency Med Personnel Mode of Arrival: EMS Severity: Moderate Timing: Hours Duration: Since onset Context: At Rest PE Risk Factors: None History of: Asthma, COPD, CHF, Intubation Prehospital treatment: C-Pap Modifying Factors: Nothing Associated Signs and Symptoms: None Was a procedure done? Was a procedure done?: No Differential Dx Differential Diagnosis: Asthma, CHF, COPD, Pulmonary Embolism, Respiratory Distress, Other (DDx include ACS, unstable angina, anxiety, PE, pneumothroax, neoplasm, cardiac ischemia, COPD, asthma, CHF, pleural effusion, tobacco abuse, pneumonia, hypoxia, hypercapnia, anemia., infection/sepsis., pulmonary edema. Asthma, Cardiac tamponade, infection.) X-Ray, Labs, Meds, VS Vital Signs Date Time Temp Pulse Resp B/P (MAP) Pulse Ox O2 Delivery O2 Flow Rate FiO2 11/07/24 18:00 97.8 85 14 119/67 (84) 100 97.8 11/07/24 16:27 97 Facial BiPAP Mask 40 11/07/24 16:00 99 16 113/58 (76) 100 11/07/24 15:00 152/85 11/07/24 14:56 24 96 Bi-Pap+ 100 100 11/07/24 14:56 130 Facial BiPAP Mask 100 11/07/24 14:55 97.5 123 18 152/85 97 97.5 11/07/24 14:44 117 11/07/24 14:40 99.1 119 23 152/85 (107) 100 99.1 11/07/24 14:40 100 Bi-Pap+ 100 100 11/07/24 14:40 119 23 100 Bi-Pap+ 100 100 Lab Test 11/07/24 18:57 11/07/24 16:14 11/07/24 16:12 11/07/24 15:50 Range/Units Troponin I High Sensitivity 4 3 L </=54 ng/L Blood Gas Specimen Type Arterial Blood Gas Sample Site Right radial Blood Gas Patient Temperature 37.0 Arterial Blood Date Drawn [id number] Arterial Blood pH 7.431 7.350-7.450 Arterial Blood Partial Pressure CO2 40.8 35.0-48.0 mmHg Arterial Blood Partial Pressure O2 451.2 *H 83.0-108.0 mmHg Arterial Blood HCO3 26.5 21.0-28.0 mmol/L Arterial Blood Oxygen Saturation 100.0 H 94.0-98.0 % Arterial Blood Base Excess 2.1 -2.0-3.0 mmol/L Arterial Blood Oxyhemoglobin 98.2 H 94.0-98.0 % Arterial Blood Carboxyhemoglobin 0.9 0.5-1.5 % Arterial Blood Methemoglobin 0.9 0.0-1.5 % Chema Test Yes Blood Gas Total Hemoglobin 14.50 13.5-17.5 g/dL Blood Gas Set Respiration Rate 14.0 Blood Gas Modality Mask - bipap FiO2 % 100.0 Blood Gas EPAP 5 Blood Gas IPAP 12 Blood Gas Critical Value Read Back Yes Blood Gas Notified Whom magalis Tierney Blood Gas Notified Time [id number] Blood Gas Notified By Host/Hostess [employer] [place] Urine Color Colorless Yellow Urine Clarity Clear Clear Urine pH 5.5 5.0-9.0 Urine Specific [place] 1.009 1.001-1.035 Urine Protein Trace H Negative Urine Ketones Negative Negative Urine Blood Negative Negative /uL Urine Nitrite Negative Negative Urine Bilirubin Negative Negative Urine Urobilinogen Normal Negative mg/dL Urine Leukocyte Esterase Negative Negative /uL Urine RBC <1 0 - 3 /hpf Urine Microscopic WBC < 1 0-3 /HPF Urine Squamous Epithelial Cells Few <5 /hpf Urine Bacteria None seen None Seen /hpf Urine Glucose Normal Normal mg/dL Test 11/07/24 14:56 11/07/24 14:43 Range/Units White Blood Count 12.0 H 4.4-10.8 10^3/uL Red Blood Count 5.49 4.5-5.90 10^6/uL Hemoglobin 14.6 13.5-17.5 g/dL Hematocrit 44.7 41.0-53.0 % Mean Corpuscular Volume 81.5 80.0-100.0 fL Mean Corpuscular Hemoglobin 26.6 L 28.0-32.0 pg Mean Corpuscular Hemoglobin Concent 32.7 32.0-36.0 g/dL Red Cell Distribution Width 19.1 H 11.8-14.3 % Platelet Count 212 140-450 10^3/uL Mean Platelet Volume 7.8 6.9-10.8 fL Neutrophils (%) (Auto) 69.2 37.0-80.0 % Lymphocytes (%) (Auto) 15.8 10.0-50.0 % Monocytes (%) (Auto) 7.5 0.0-12.0 % Eosinophils (%) (Auto) 6.9 0.0-7.0 % Basophils (%) (Auto) 0.6 0.0-2.0 % Neutrophils # (Auto) 8.3 1.6-8.6 10 ^3/uL Lymphocytes # (Auto) 1.9 0.4-5.4 10 ^3/uL Monocytes # (Auto) 0.9 0-1.3 10 ^3/uL Eosinophils # (Auto) 0.8 0-0.8 10 ^3/uL Basophils # (Auto) 0.1 0-0.2 10 ^3/uL Nucleated Red Blood Cells 0.1 % Sodium Level 141 136-145 mmol/L Potassium Level 3.7 3.5-5.1 mmol/L Chloride Level 103 98-107 mmol/L Carbon Dioxide Level 29 20-31 mmol/L Anion Gap 9 5-15 Blood Urea Nitrogen 10 9-23 mg/dL Creatinine 1.04 0.700-1.30 mg/dL Glomerular Filtration Rate Calc 78 >90 mL/min BUN/Creatinine Ratio 9.6 L 10.0-20.0 Serum Glucose 149 H 74-106 mg/dL Calcium Level 9.5 8.7-10.4 mg/dL Magnesium Level 2.2 1.6-2.6 mg/dL Total Bilirubin 0.5 0.2-1.0 mg/dL Aspartate Amino Transferase (AST) 20 13-40 U/L Alanine Aminotransferase (ALT) 18 7-40 U/L Alkaline Phosphatase 109 46-116 U/L Troponin I High Sensitivity 4 </=54 ng/L B-Type Natriuretic Peptide 17.22 0-100 pg/mL Total Protein 7.2 5.7-8.2 g/dL Albumin 4.5 3.2-4.8 g/dL Urine Opiates Screen Neg NEGATIVE Urine Fentanyl Screen Neg NEGATIVE Urine Barbiturates Screen Neg NEGATIVE Urine Phencyclidine Screen Neg NEGATIVE Urine Amphetamines Screen Neg NEGATIVE Urine Benzodiazepines Screen Neg NEGATIVE Urine Cocaine Screen Neg NEGATIVE Urine Cannabinoids Screen Neg NEGATIVE [place] [address] Ph: [phone] DIAGNOSTIC IMAGING Diagnostic Imaging Report : [id number] Signed PATIENT: [facility] B[facility]ERA RACCT: [id number] UNIT: [id number] : 1955 LOC: ER ROOM / BED: / AGE / SEX: 69 / M ADM STATUS: REG ER SERVICE 1443 ORDERING PHYSICIAN: CESIA DANIEL DO PROCEDURE(s): CXRP - CHEST PORTABLE REASON: acute resp distress ORDER NUMBER(s): [id number], ACCESSION NUMBER(s): [id number] EXAM: XY CHEST PORTABLE Indication: acute resp distress Technique: Single frontal view of the chest was obtained Comparison: XY CHEST PORTABLE on DOS: 10/17/24, XY CHEST PORTABLE on DOS: 09/05/24, XY CHEST PORTABLE on DOS: 08/22/24, XY CHEST XRAY 1 VIEW on DOS: 08/01/24, XY CHEST PORTABLE on DOS: 06/15/24 FINDINGS: Lines and Tubes: None Lungs: Small right pleural effusion and right basilar opacity. Right pulmonary emphysema. No pneumothorax. Cardiomediastinal contours: Unremarkable Bones: No acute osseous abnormality. IMPRESSION: Small right pleural effusion and right basilar opacity. Right pulmonary emphysema. ATED BY: ANGELINE HILL MD DICTATED DATE/TIME: 11/07/241518 SIGNED BY: ANGELINE HILL MD SIGNED DATE/TIME: 11/07/241518 CC: Time of 1ST Reevaluation: 15:15 Reevaluation 1ST: Unchanged Time of 2ND Reevaluation: 16:08 Reevaluation 2ND: Improved Patient Education/Counseling: Diagnosis, Treatment Family Education/Counseling: No Family Present Comments MDM: patient presented with the above HPI.---respiratory dis tress/dyspnea---workup was initiated. patient was found with the above mentioned diagnosis. the following medications were ordered: please refer to order lists of meds and tests obtained by myself Dr. Daniel. Patient ED course and VS have been stabilized. Patient has been reassessed in the ED and remained in a stable condition. Pertinent incidental findings were discussed with the patient and/or family. Patient/family voices understanding and is agreeable with plan. Patient has been observed in the ED adequate length of time to insure improvement/stability. Escalation of care considered: Consideration of escalation to observation or admission Patient was ADMITTED to the medicine team for further evaluation and treatment of their presentation. All the reports of any imaging studies that were ordered by myself were reviewed by myself. SEPSIS Sepsis Screen Physician Orders BIPAP (11/07/24 14:43) Production Underwriter (11/07/24 ) Chest Portable (11/07/24 14:43) Electrocardigram (11/07/24 14:43) Electrocardigram (11/07/24 15:43) Electrocardigram (11/07/24 17:43) Abg W/ Co-Ox (11/07/24 16:00) Vital Signs Date Time Temp Pulse Resp B/P (MAP) Pulse Ox O2 Delivery O2 Flow Rate FiO2 11/07/24 18:00 97.8 85 14 119/67 (84) 100 97.8 11/07/24 16:27 97 Facial BiPAP Mask 40 11/07/24 16:00 99 16 113/58 (76) 100 11/07/24 15:00 152/85 11/07/24 14:56 24 96 Bi-Pap+ 100 100 11/07/24 14:56 130 Facial BiPAP Mask 100 11/07/24 14:55 97.5 123 18 152/85 97 97.5 11/07/24 14:44 117 11/07/24 14:40 99.1 119 23 152/85 (107) 100 99.1 11/07/24 14:40 100 Bi-Pap+ 100 100 11/07/24 14:40 119 23 100 Bi-Pap+ 100 100 Laboratory Tests Test 11/07/24 14:56 White Blood Count 12.0 10^3/uL (4.4-10.8) H Departure 1 Departure Time of Disposition: 15:15 Impression: Primary Impression: Acute and chronic respiratory failure with hypoxia Additional Impression: Chronic obstructive pulmonary disease with acute exacerbation Disposition: ADMITTED INPATIENT Admit to: [facility] Condition: Guarded Additional Instructions: [place] [address] Ph: [phone] DIAGNOSTIC IMAGING Diagnostic Imaging Report : [id number] Signed PATIENT: [facility] B[facility]ER[facility] ACCT: [id number] UNIT: [id number] : 1955 LOC: ER ROOM / BED: / AGE / SEX: 69 / M ADM STATUS: REG ER SERVICE 1443 ORDERING PHYSICIAN: CESIA DANIEL DO PROCEDURE(s): CXRP - CHEST PORTABLE REASON: acute resp distress ORDER NUMBER(s): [id number], ACCESSION NUMBER(s): [id number] EXAM: XY CHEST PORTABLE Indication: acute resp distress Technique: Single frontal view of the chest was obtained Comparison: XY CHEST PORTABLE on DOS: 10/17/24, XY CHEST PORTABLE on DOS: 09/05/24, XY CHEST PORTABLE on DOS: 08/22/24, XY CHEST XRAY 1 VIEW on DOS: 08/01/24, XY CHEST PORTABLE on DOS: 06/15/24 FINDINGS: Lines and Tubes: None Lungs: Small right pleural effusion and right basilar opacity. Right pulmonary emphysema. No pneumothorax. Cardiomediastinal contours: Unremarkable Bones: No acute osseous abnormality. IMPRESSION: Small right pleural effusion and right basilar opacity. Right pulmonary emphysema. ATED BY: ANGELINE HILL MD DICTATED DATE/TIME: 11/07/241518 SIGNED BY: ANGELINE HILL MD SIGNED DATE/TIME: 11/07/241518 CC: e-Prescriptions Umeclidinium-Vilanterol (Anoro Ellipta 62.5-25 Mcg/INH) 1 Aer Aer 1 AER IN DAILY for 30 Days, #1 AER 2 Refills Prov: NIKI DRAKE RESIDENT 11/10/24 Albuterol Sulfate (Albuterol Sulfate Hfa) 108 Mcg/Act Aer 2 PUFF INH Q6HR for 30 Days, #1 AER Prov: NIKI DRAKE RESIDENT 11/10/24 Azithromycin (ZITHROMAX TABLET) 250 Mg Tb 250 MG PO BID for 5 Days, #10 TAB Prov: NIKI DRAKE RESIDENT 11/10/24 Prednisone (Prednisone) 20 Mg Tab 40 MG PO DAILY for 3 Days, #6 TAB Prov: NIKI DRAKE RESIDENT 11/10/24 Discharged With: Self Critical Care Note Critical Care Time?: Yes (45 min-critical care time only) Heart Score Heart Score: Heart Score Response (Comments) Value History Moderate Suspicious 1 EKG Normal 0 Age >65 2 Risk Factors >3 or Hx ASHD 2 Troponin Normal limit 0 Total 5 I personally scribed for CESIA DANIEL DO ([email or web address]) on 11/07/24 at 15:14. Electronically submitted by Fouzia iTnajero ([email or web address]). I personally scribed for CESIA DANIEL DO ([email or web address]) on 11/07/24 at 15:52. Electronically submitted by Fouzia Tinajero ([email or web address]). ECSIA DANIEL DO Nov 07, 2024 15:14
[2024-11-07 15:20] LABS: Hematocrit 44.7 % (41.0-53.0); Hemoglobin 14.6 g/dL (13.5-17.5); Mean Corpuscular Hemoglobin 26.6 pg (28.0-32.0); Mean Corpuscular Volume 81.5 fL (80.0-100.0); Nucleated Red Blood Cells % 0.1 %
--- NOTE | 2024-11-07 15:22 | DVH ---
EXAM: XY CHEST PORTABLE Indication: acute resp distress Technique: Single frontal view of the chest was obtained Comparison: XY CHEST PORTABLE on DOS: 10/17/24, XY CHEST PORTABLE on DOS: 09/05/24, XY CHEST PORTABLE on DOS: 08/22/24, XY CHEST XRAY 1 VIEW on DOS: 08/01/24, XY CHEST PORTABLE on DOS: 06/15/24 FINDINGS: Lines and Tubes: None Lungs: Small right pleural effusion and right basilar opacity. Right pulmonary emphysema. No pneumothorax. Cardiomediastinal contours: Unremarkable Bones: No acute osseous abnormality. IMPRESSION: Small right pleural effusion and right basilar opacity. Right pulmonary emphysema.
[2024-11-07 15:32] LABS: Alanine Aminotransferase 18 U/L (7-40); Albumin 4.5 g/dL (3.2-4.8); Alkaline Phosphatase 109 U/L (46-116); Anion Gap 9 (5-15); BUN/Creatinine Ratio 9.6 (10.0-20.0); Bilirubin, Total 0.5 mg/dL (0.2-1.0); Blood Urea Nitrogen 10 mg/dL (9-23); Calcium 9.5 mg/dL (8.7-10.4); Carbon Dioxide 29 mmol/L (20-31); Chloride 103 mmol/L (98-107); Glucose 149 mg/dL (74-106); Magnesium 2.2 mg/dL (1.6-2.6); Potassium 3.7 mmol/L (3.5-5.1); Sodium 141 mmol/L (136-145); Total Protein 7.2 g/dL (5.7-8.2)
[2024-11-07 16:25] LABS: Base Excess 2.1 mmol/L (-2.0-3.0)
[2024-11-07 16:58] LABS: Urine Protein, UAD TRACE (Negative)
[2024-11-07 17:12] LABS: Amphetamine Screen, Urine Neg (NEGATIVE); Barbiturate Scree,Urine Neg (NEGATIVE); Benzodiazephine Screen, Urine Neg (NEGATIVE); Cannabinoid Screen, Urine Neg (NEGATIVE); Cocaine Screen, Urine Neg (NEGATIVE); Opiate Scree,Urine Neg (NEGATIVE); Phencyclidine Screen, Urine Neg (NEGATIVE)
[2024-11-07] MEDS ORDERED: IPRATROPIUM BROM 0.5 MG/2.5ML INH SOL NEB PRN (19:15)
[2024-11-07] MEDS ORDERED: HYDROcodone-ACET 5/325MG TAB PO PRN (19:15)
[2024-11-07] MEDS ORDERED: ALBUTEROL SULF 2.5 MG/0.5ML(0.5%) NEB SOLN NEB PRN (19:15)
[2024-11-07] MEDS ORDERED: NITROGLYCERIN 0.4 MG SL TAB SL PRN (19:15)
[2024-11-07] MEDS ORDERED: ONDANSETRON HCL 4 MG/2 ML VIAL IV PRN (19:15)
[2024-11-07] MEDS ORDERED: MORPHINE SULFATE INJ 2 MG/ml SYRG IV PRN (19:15)
[2024-11-07] MEDS: AZITHROMYCIN 500MG/ 250ML 250 ML IV ONE (19:15)
[2024-11-07] MEDS ORDERED: ACETAMINOPHEN 325 MG TAB PO PRN (19:15)
--- NOTE | 2024-11-07 21:30 | DVHHP2 ---
History of Present Illness Reason for Visit: Shortness for breath History of Present Illness 69-year-old male presents for evaluation of shortness for breath. Patient endorses a one day history of worsening shortness for breath not being relieved with his inhaler or nebulizer at home. Denies chest pain or palpitations. No cough or fever. Past Medical History COPD, CVA, asthma, lung cancer, PE, CHF Past Surgical History Denies Family History Noncontributory Smoke: No ALCOHOL: none Drugs: None Lives: with Family Review of Systems Review of Systems Review of systems are currently negative otherwise addressed in HPI. Allergies: Coded Allergies: NO KNOWN ALLERGIES (Unverified , 03/24/22) Medications Current Medications Medications Dose Ordered Sig/Arnaldo Route Start Time Stop Time Status Last Admin Dose Admin Albuterol 2.5 mg Q6HPRN PRN NEB 11/07/24 19:15 Ipratropium [place] 0.5 mg Q6HPRN PRN NEB 11/07/24 19:15 Azithromycin 250 ml @ 125 mls/hr DAILY IV 11/08/24 10:00 Methylprednisolone Sodium Succinate 40 mg BID IV 11/07/24 22:00 Furosemide 20 mg DAILY IV 11/08/24 10:00 Amlodipine Besylate 10 mg DAILY PO 11/08/24 10:00 Aspirin 81 mg DAILY PO 11/08/24 10:00 Memantine 10 mg Q12HR PO 11/07/24 22:00 Acetaminophen/ Hydrocodone Bitart 1 tab Q4HP PRN PO 11/07/24 19:15 Ondansetron HCl 4 mg Q4HP PRN IV 11/07/24 19:15 Acetaminophen 650 mg Q6HP PRN PO 11/07/24 19:15 Nitroglycerin 0.4 mg Q5MINP PRN SL 11/07/24 19:15 Morphine Sulfate 2 mg Q30M PRN IV 11/07/24 19:15 Exam Vital Signs Vital Signs Date Time Temp Pulse Resp B/P (MAP) Pulse Ox O2 Delivery O2 Flow Rate FiO2 11/07/24 20:00 88 11/07/24 19:30 20 98 Nasal Cannula* 2 28 11/07/24 18:00 97.8 119/67 (84) 97.8 Exam Gen: 69-year-old male in mild distress. Skin: Warm, dry, normal color and texture, no rash. HEENT: Normocephalic atraumatic, mucous membranes moist and pink. Neck: Cervical and supraclavicular nodes normal without enlargement, trachea is midline, thyroid gland is normal without masses. Pulmonary: C diminished breath sounds bilaterally Cardiac: Regular rate and rhythm. No murmur Abdomen: Soft, nontender, nondistended, bowel sounds present all 4 quadrants, no guarding, no rigidity, no organomegaly. Extremities: No cyanosis, clubbing, no edema Neuro: Cranial nerves II through XII grossly intact, normal affect and speech, no focal motor deficits. Labs/Xrays ORDERING PHYSICIAN: CESIA DANIEL DO PROCEDURE(s): CXRP - CHEST PORTABLE REASON: acute resp distress ORDER NUMBER(s): [id number], ACCESSION NUMBER(s): [id number] EXAM: XY CHEST PORTABLE Indication: acute resp distress Technique: Single frontal view of the chest was obtained Comparison: XY CHEST PORTABLE on DOS: 10/17/24, XY CHEST PORTABLE on DOS: 09/05/24, XY CHEST PORTABLE on DOS: 08/22/24, XY CHEST XRAY 1 VIEW on DOS: 08/01/24, XY CHEST PORTABLE on DOS: 06/15/24 FINDINGS: Lines and Tubes: None Lungs: Small right pleural effusion and right basilar opacity. Right pulmonary emphysema. No pneumothorax. Cardiomediastinal contours: Unremarkable Bones: No acute osseous abnormality. IMPRESSION: Small right pleural effusion and right basilar opacity. Right pulmonary emphysema. Labs Test 11/07/24 18:57 11/07/24 16:14 11/07/24 16:12 11/07/24 14:56 Range/Units Troponin I High Sensitivity 4 </=54 ng/L Blood Gas Specimen Type Arterial Blood Gas Sample Site Right radial Blood Gas Patient Temperature 37.0 Arterial Blood Date Drawn [id number] Arterial Blood pH 7.431 7.350-7.450 Arterial Blood Partial Pressure CO2 40.8 35.0-48.0 mmHg Arterial Blood Partial Pressure O2 451.2 *H 83.0-108.0 mmHg Arterial Blood HCO3 26.5 21.0-28.0 mmol/L Arterial Blood Oxygen Saturation 100.0 H 94.0-98.0 % Arterial Blood Base Excess 2.1 -2.0-3.0 mmol/L Arterial Blood Oxyhemoglobin 98.2 H 94.0-98.0 % Arterial Blood Carboxyhemoglobin 0.9 0.5-1.5 % Arterial Blood Methemoglobin 0.9 0.0-1.5 % Chema Test Yes Blood Gas Total Hemoglobin 14.50 13.5-17.5 g/dL Blood Gas Set Respiration Rate 14.0 Blood Gas Modality Mask - bipap FiO2 % 100.0 Blood Gas EPAP 5 Blood Gas IPAP 12 Blood Gas Critical Value Read Back Yes Blood Gas Notified Whom magalis Tierney Blood Gas Notified Time [id number] Blood Gas Notified By Senior Radiation Therapist ivy [place] Urine Color Colorless Yellow Urine Clarity Clear Clear Urine pH 5.5 5.0-9.0 Urine Specific [place] 1.009 1.001-1.035 Urine Protein Trace H Negative Urine Ketones Negative Negative Urine Blood Negative Negative /uL Urine Nitrite Negative Negative Urine Bilirubin Negative Negative Urine Urobilinogen Normal Negative mg/dL Urine Leukocyte Esterase Negative Negative /uL Urine RBC <1 0 - 3 /hpf Urine Microscopic WBC < 1 0-3 /HPF Urine Squamous Epithelial Cells Few <5 /hpf Urine Bacteria None seen None Seen /hpf Urine Glucose Normal Normal mg/dL White Blood Count 12.0 H 4.4-10.8 10^3/uL Red Blood Count 5.49 4.5-5.90 10^6/uL Hemoglobin 14.6 13.5-17.5 g/dL Hematocrit 44.7 41.0-53.0 % Mean Corpuscular Volume 81.5 80.0-100.0 fL Mean Corpuscular Hemoglobin 26.6 L 28.0-32.0 pg Mean Corpuscular Hemoglobin Concent 32.7 32.0-36.0 g/dL Red Cell Distribution Width 19.1 H 11.8-14.3 % Platelet Count 212 140-450 10^3/uL Mean Platelet Volume 7.8 6.9-10.8 fL Neutrophils (%) (Auto) 69.2 37.0-80.0 % Lymphocytes (%) (Auto) 15.8 10.0-50.0 % Monocytes (%) (Auto) 7.5 0.0-12.0 % Eosinophils (%) (Auto) 6.9 0.0-7.0 % Basophils (%) (Auto) 0.6 0.0-2.0 % Neutrophils # (Auto) 8.3 1.6-8.6 10 ^3/uL Lymphocytes # (Auto) 1.9 0.4-5.4 10 ^3/uL Monocytes # (Auto) 0.9 0-1.3 10 ^3/uL Eosinophils # (Auto) 0.8 0-0.8 10 ^3/uL Basophils # (Auto) 0.1 0-0.2 10 ^3/uL Nucleated Red Blood Cells 0.1 % Sodium Level 141 136-145 mmol/L Potassium Level 3.7 3.5-5.1 mmol/L Chloride Level 103 98-107 mmol/L Carbon Dioxide Level 29 20-31 mmol/L Anion Gap 9 5-15 Blood Urea Nitrogen 10 9-23 mg/dL Creatinine 1.04 0.700-1.30 mg/dL Glomerular Filtration Rate Calc 78 >90 mL/min BUN/Creatinine Ratio 9.6 L 10.0-20.0 Serum Glucose 149 H 74-106 mg/dL Calcium Level 9.5 8.7-10.4 mg/dL Magnesium Level 2.2 1.6-2.6 mg/dL Total Bilirubin 0.5 0.2-1.0 mg/dL Aspartate Amino Transferase (AST) 20 13-40 U/L Alanine Aminotransferase (ALT) 18 7-40 U/L Alkaline Phosphatase 109 46-116 U/L B-Type Natriuretic Peptide 17.22 0-100 pg/mL Total Protein 7.2 5.7-8.2 g/dL Albumin 4.5 3.2-4.8 g/dL Test 11/07/24 14:43 Range/Units Urine Opiates Screen Neg NEGATIVE Urine Fentanyl Screen Neg NEGATIVE Urine Barbiturates Screen Neg NEGATIVE Urine Phencyclidine Screen Neg NEGATIVE Urine Amphetamines Screen Neg NEGATIVE Urine Benzodiazepines Screen Neg NEGATIVE Urine Cocaine Screen Neg NEGATIVE Urine Cannabinoids Screen Neg NEGATIVE SEPSIS Sepsis Screen Date sepsis recognized/suspect: Nov 07, 2024 Time Sepsis recognized/suspect: 0 Recent Procedure: No On Antibiotic Therapy: No Respiratory Rate >20: No Heart Rate >90: Yes Temp<36 C (96.8 F) or >38.3 C: No SBP <90 or MAP <65 mmHG: No New Acute Mental Status Change: No Is the patient on CPAP, BIPAP,: Yes Physician Orders BIPAP (11/07/24 14:43) Classification Case Manager (11/07/24 ) Chest Portable (11/07/24 14:43) Electrocardigram (11/07/24 14:43) Electrocardigram (11/07/24 15:43) Electrocardigram (11/07/24 17:43) Abg W/ Co-Ox (11/07/24 16:00) Albuterol Medneb (Ventolin Medneb) (11/07/24 19:15) Ipratropium Medneb (Atrovent Medneb) (11/07/24 19:15) Azithromycin 500mg/ 250ml (Zithromax 50 (11/08/24 10:00) Methylprednisolone Sod Succ (Solu Medrol (11/07/24 22:00) Furosemide Injection (Lasix Injection) (11/08/24 10:00) Amlodipine Tablet (Norvasc Tablet) (11/08/24 10:00) Aspirin Tablet (11/08/24 10:00) Memantine Tablet (Namenda Tablet) (11/07/24 22:00) Admit (11/07/24 19:08) Hydrocodone-Acet 5/325mg Tab ([place] 5/32 (11/07/24 19:15) Ondansetron Hcl (Zofran) (11/07/24 19:15) Complete Blood Count (11/08/24 04:00) Cardiac Diet-2gna,Lofat,Lochol (11/08/24 Breakfast) Condition: Fair (11/07/24 19:08) Acetaminophen Tablet (Tylenol Tablet) (11/07/24 19:15) Bedrest With Bathroom Privileg (11/07/24 19:08) Nitroglycerin Sublingual (Ntrostat Subli (11/07/24 19:15) Morphine Sulfate Injection (11/07/24 19:15) Stat Ekg For Chest Pain (11/07/24 19:08) Notify Of Changes From Base (11/07/24 19:08) Chrome Plater For 24 Hours (11/07/24 19:08) Emergency Dysrhythmia Protocol (11/07/24 19:08) Rhythm Strips Once Every Shift (11/07/24 19:08) Oxygen By Nasal Cannula (11/07/24 19:08) Basic Metabolic Panel (11/08/24 04:00) Vital Signs Date Time Temp Pulse Resp B/P (MAP) Pulse Ox O2 Delivery O2 Flow Rate FiO2 11/07/24 20:00 88 11/07/24 19:30 20 98 Nasal Cannula* 2 28 11/07/24 18:00 97.8 85 14 119/67 (84) 100 97.8 11/07/24 16:27 97 Facial BiPAP Mask 40 11/07/24 16:00 99 16 113/58 (76) 100 11/07/24 15:00 152/85 11/07/24 14:56 24 96 Bi-Pap+ 100 100 11/07/24 14:56 130 Facial BiPAP Mask 100 11/07/24 14:55 97.5 123 18 152/85 97 97.5 11/07/24 14:44 117 11/07/24 14:40 99.1 119 23 152/85 (107) 100 99.1 11/07/24 14:40 100 Bi-Pap+ 100 100 11/07/24 14:40 119 23 100 Bi-Pap+ 100 100 Laboratory Tests Test 11/07/24 14:56 White Blood Count 12.0 10^3/uL (4.4-10.8) H Medications Medications Dose Ordered Sig/Arnaldo Route Start Time Stop Time Status Last Admin Dose Admin Albuterol 20 mg ONCE ONCE NEB 11/07/24 14:56 11/07/24 15:07 DC 11/07/24 15:10 20 MG Furosemide 80 mg ONCE ONCE IV 11/07/24 14:45 11/07/24 14:46 DC 11/07/24 15:00 80 MG Ipratropium [place] 1 mg ONCE ONCE NEB 11/07/24 14:56 11/07/24 15:07 DC 11/07/24 15:10 1 MG Assessment/Plan Assessment/Plan Assessment Acute on chronic hypoxic respiratory failure COPD exacerbation Questionable pneumonia CHF Small pleural effusion Plan Admit the patient to telemetry to the hospitalist Shiv mccloud Azithromycin Resume home medications Continue treatment per orders. Plan discussed with: Patient My Orders Orders - BETTE NEUMANN AGACNP Procedure Category Date Status Time Albuterol Medneb PHA 11/07/24 In Process (Ventolin Medneb) 19:15 Ipratropium Medneb PHA 11/07/24 In Process (Atrovent Medneb) 19:15 Azithromycin 500mg/ PHA 11/08/24 In Process 250ml (Zithromax 50 10:00 Methylprednisolone PHA 11/07/24 In Process Sod Succ (Solu Medrol 22:00 Furosemide Injection PHA 11/08/24 In Process (Lasix Injection) 10:00 Amlodipine Tablet PHA 11/08/24 In Process (Norvasc Tablet) 10:00 Aspirin Tablet PHA 11/08/24 In Process 10:00 Memantine Tablet PHA 11/07/24 In Process (Namenda Tablet) 22:00 Admit ADMIT 11/07/24 Transmitted 19:08 Hydrocodone-Acet PHA 11/07/24 In Process 5/325mg Tab (Debord 19:15 Ondansetron Hcl PHA 11/07/24 In Process (Zofran) 19:15 Complete Blood Count LAB 11/08/24 Verified 04:00 Cardiac DIET 11/08/24 Transmitted Diet-2gna,Lofat,Lochol Breakfast Condition: Fair LINDSAY 11/07/24 In Process 19:08 Acetaminophen Tablet PHA 11/07/24 In Process (Tylenol Tablet) 19:15 Bedrest With Bathroom LINDSAY 11/07/24 In Process Privileg 19:08 Nitroglycerin PHA 11/07/24 In Process Sublingual (Ntrostat 19:15 Morphine Sulfate PHA 11/07/24 In Process Injection 19:15 Stat Ekg For Chest LINDSAY 11/07/24 In Process Pain 19:08 Notify Md Of Changes LINDSAY 11/07/24 In Process From Base 19:08 Chrome Plater For LINDSAY 11/07/24 In Process 24 Hours 19:08 Emergency Dysrhythmia LINDSAY 11/07/24 In Process Protocol 19:08 Rhythm Strips Once LINDSAY 11/07/24 In Process Every Shift 19:08 Oxygen By Nasal RT 11/07/24 Transmitted Cannula 19:08 Basic Metabolic Panel LAB 11/08/24 Verified 04:00 Date of Service: Nov 07, 2024 Billing Provider: BETTE NEUMANN Common Visit Codes: [id number] INP/OBS CARE (HIGH) BETTE NEUMANN Nov 07, 2024 21:30
[2024-11-07] MEDS: methylPREDNISolone SOD SUCC 40 MG/ML VL IV SCH (21:52)
[2024-11-07 22:49] VITALS: BP 110/77; PULSE 82; RESP 17; TEMP 97.8; O2SAT 100
[2024-11-08] VITALS (14 sets, daily range): BP systolic 110–123; BP diastolic 65–86; PULSE 75–88; RESP 16–18; TEMP 97.7–99.2; O2SAT 93–100
[2024-11-08] MEDS: MEMANTINE HCL 5 MG TAB PO SCH (00:26)
[2024-11-08 07:15] LABS: Hematocrit 41.9 % (41.0-53.0); Hemoglobin 14.0 g/dL (13.5-17.5); Mean Corpuscular Hemoglobin 26.7 pg (28.0-32.0); Mean Corpuscular Volume 79.9 fL (80.0-100.0); Nucleated Red Blood Cells % 0.0 %
[2024-11-08 07:21] LABS: Chloride 103 mmol/L (98-107); Sodium 143 mmol/L (136-145)
[2024-11-08 07:22] LABS: Anion Gap 9 (5-15); Calcium 9.4 mg/dL (8.7-10.4); Carbon Dioxide 31 mmol/L (20-31)
[2024-11-08 07:27] LABS: BUN/Creatinine Ratio 8.5 (10.0-20.0); Glucose 82 mg/dL (74-106)
[2024-11-08 07:34] LABS: Blood Urea Nitrogen 9 mg/dL (9-23); Potassium 3.1 mmol/L (3.5-5.1)
[2024-11-08] MEDS ORDERED: IPRATROPIUM BROM 0.5 MG/2.5ML INH SOL NEB SCH (08:00)
[2024-11-08] MEDS ORDERED: ALBUTEROL SULF 2.5 MG/0.5ML(0.5%) NEB SOLN NEB SCH (08:00)
[2024-11-08] MEDS ORDERED: ASPirin-EC 81 mg tab PO SCH (10:00)
[2024-11-08] MEDS ORDERED: PATIENTS OWN MEDICATION (Memantine Hydrochloride (Memantine HCl) 1 TAB) PO SCH (10:00)
[2024-11-08] MEDS ORDERED: PATIENTS OWN MEDICATION (Amlodipine Besylate 1 TAB) PO SCH (10:00)
[2024-11-08] MEDS: AZITHROMYCIN 500MG/ 250ML 250 ML IV SCH (10:00)
[2024-11-08] MEDS: FUROSEMIDE 20 MG/2 ML VIAL IV SCH (10:00)
[2024-11-08] MEDS ORDERED: APIXABAN 5 MG TAB PO SCH (10:00)
[2024-11-08] MEDS: ENOXAPARIN SOD 100 MG/1 ML SYRINGE SC SCH (10:16)
[2024-11-08] MEDS: POTASSIUM CHL 20 Meq TABLET PO ONE (10:17)
[2024-11-08] MEDS: ASPirin-EC 81 mg tab PO SCH (10:19)
[2024-11-08 11:29] LABS: Hepatitis B Surface Antigen Negative (Negative); Hepatitis C Antibody Negative (Negative)
[2024-11-08] MEDS: ALBUTEROL SULF 2.5 MG/0.5ML(0.5%) NEB SOLN NEB SCH (12:41)
[2024-11-08] MEDS: IPRATROPIUM BROM 0.5 MG/2.5ML INH SOL NEB SCH (12:41)
--- NOTE | 2024-11-08 17:58 | DVHPNRES ---
Progress Note Date Seen: Nov 08, 2024 Resident Creating Document: CAYETANO FITCH RESIDENT Medical Necessity Reason Pt with a Central, PICC or Fol: No Subjective Review of Systems 69-year-old male presented for evaluation of shortness of breath for the past 2 days. Patient reports that he had 1 day of worsening of shortness of breath which was not relieved with his inhalers or nebulization at home. Patient reports that he takes 2 L of oxygen on and off as needed. He denies any chest pain or palpitations, cough, fever, chills, recent sick contacts. He reports the shortness of breath has been constant. PMH: COPD, CVA, asthma, lung cancer, PE, CHF past surgical history: Right lung lobectomy done many years ago, repaired right inguinal hernia Social history: Patient reports having smoked half a pack for 50 years but quit in 2023, denies any alcohol use or drug abuse.He lives with his family Family history: Reviewed and noncontributory to the management of this case Allergies: None ROS 11/08/2024: Patient reports feeling better with 4 L of oxygen. He has no new active complaints. PD azithromycin and ceftriaxone as well as steroids. We will try to wean him off oxygen Objective vital signs Vital Sign Date Time Temp Pulse Resp B/P (MAP) Pulse Ox O2 Delivery O2 Flow Rate FiO2 11/08/24 13:00 99.2 75 17 114/81 (92) 99 99.2 11/08/24 12:41 Nasal Cannula 4.0 11/08/24 12:41 36 Total Intake and Output 11/07/24 11/07/24 11/08/24 15:00 23:00 07:00 Intake Total 400 ml Output Total 500 ml 700 ml Balance -500 ml -300 ml medications Current Medications Medications Dose Ordered Sig/Arnaldo Route Start Time Stop Time Status Last Admin Dose Admin Azithromycin 250 ml @ 125 mls/hr DAILY IV 11/08/24 10:00 11/08/24 10:00 125 MLS/HR Methylprednisolone Sodium Succinate 40 mg BID IV 11/07/24 22:00 11/08/24 10:15 40 MG Furosemide 20 mg DAILY IV 11/08/24 10:00 Amlodipine Besylate 10 mg DAILY PO 11/08/24 10:00 11/08/24 10:18 10 MG Memantine 10 mg Q12HR PO 11/07/24 22:00 11/08/24 10:19 10 MG Acetaminophen/ Hydrocodone Bitart 1 tab Q4HP PRN PO 11/07/24 19:15 Ondansetron HCl 4 mg Q4HP PRN IV 11/07/24 19:15 Acetaminophen 650 mg Q6HP PRN PO 11/07/24 19:15 Nitroglycerin 0.4 mg Q5MINP PRN SL 11/07/24 19:15 Morphine Sulfate 2 mg Q30M PRN IV 11/07/24 19:15 Ceftriaxone Sodium 50 ml @ 100 mls/hr DAILY@09 IV 11/08/24 09:00 11/08/24 10:15 100 MLS/HR Aspirin 81 mg DAILY PO 11/08/24 10:00 UNV Patient Own Medication 1 tab DAILY PO 11/08/24 10:00 UNV Patient Own Medication 1 tab BID PO 11/08/24 10:00 UNV Enoxaparin Sodium 60 mg Q12HR SC 11/08/24 10:00 11/08/24 10:16 60 MG Aspirin 81 mg DAILY PO 11/08/24 10:00 11/08/24 10:19 81 MG Albuterol 2.5 mg Q6HR NEB 11/08/24 12:00 11/08/24 12:41 2.5 MG Ipratropium [place] 0.5 mg Q6HR NEB 11/08/24 12:00 11/08/24 12:41 0.5 MG Examination Pt is lying on bed General Appearance: Alert, Oriented X3, Cooperative, Not in acute distress HEENT: Atraumatic, Mucous membranes moist/pink Respiratory: Presence of wheezing in bilateral lungs, patient on 4 L of oxygen Cardiovascular: Regular rate, Normal S1, Normal S2, No murmurs Abdominal: Active bowel sounds, Soft, no distention, no tenderness Extremities: No edema, Normal pulses, No tenderness/swelling Skin: No Significant rash, except past surgical scars Neuro: Normal speech, sensorimotor deficits none Psych/Mental Status: Mental status NL, Mood NL Nurse was there as paint stockman during examination laboratory and microbiology Laboratory Tests 11/08/24 06:47 Test 11/08/24 06:47 Range/Units Serum Glucose 82 74-106 mg/dL Microbiology Date/Time Source Procedure Growth Status 11/08/24 00:23 Nose MRSA Screen - Final Complete Labs and/or images reviewed: Labs reviewed by me, Image(s) reviewed by me Problem List/Assessment/Plan Problem List/Assessment/Plan #acute on chronic hypoxic respiratory failure #sepsis due to acute exacerbation of COPD #history of asthma #Pleural effusion -CXR shows: Small right pleural effusion.. The heart and mediastinal contours are grossly unremarkable. The lungs are clear. The bony structures of the chest are intact without fracture. -Med nebulization with ipratropium bromide and albuterol scheduled -Solu-Medrol 40 mg IV b.i.d. -azithromycin 500 mg/ 250 mL IV daily -Ceftriaxone 1 g IV daily -patient on 4 L of oxygen, wean as tolerated -[place] 5/325 mg 1 tab q.4 PRN -ondansetron 4 mg q.4 PRN -acetaminophen 650 mg q.6 ND - influenza flu test, COVID test, pending - influenza and pneumococcal vaccine administered intramuscularly - MRSA negative - sputum culture and blood culture, pending - continuous pulse oximetry maintain SpO2 between 88-92 - enoxaparin 60 mg subcutaneous b.i.d. #History of CHF not in exacerbation #Hypertension -last echo done on 02/01/2024 shows ejection fraction of 55% -furosemide 20 mg IV daily -Amlodipine 10 mg per orally daily -morphine 2 mg Q 30 PRN IV for chest pain -nitroglycerin 0.4 mg to 5 minute PRN - troponin negative # hypokalemia - potassium repleted #history of dementia -continue memantine 10 mg b.i.d. per orally DVT prophylaxis: Lovenox 60 mg b.i.d. subcutaneous Diet: Cardiac Goals of care discussed with the patient for more than 27 minutes: Full code status Case discussed with Dr. Pires, patient and nurse. Plan discussed with: Other (rn) My Orders My Orders Orders - CAYETANO FITCH RESIDENT Procedure Category Date Status Time Ceftriaxone 1gm/50ml PHA 11/08/24 In Process (Rocephin) 09:00 Enoxaparin Sodium PHA 11/08/24 In Process (Lovenox) 10:00 Aspirin Enteric PHA 11/08/24 In Process Coated Tablet 10:00 Albuterol Medneb PHA 11/08/24 In Process (Ventolin Medneb) 12:00 Ipratropium Medneb PHA 11/08/24 In Process (Atrovent Medneb) 12:00 Discontinue Tele LINDSAY 11/08/24 In Process 11:30 Transfer Orders XFER 11/08/24 Transmitted 11:30 Respiratory Culture ANNAMARIA 11/08/24 Uncollected W/ Gs 17:52 Blood Culture ANNAMARIA 11/09/24 Uncollected 04:00 Covid19 Antigen [facility] LAB 11/08/24 Transmitted Rapid Influenza A&B LAB 11/08/24 Transmitted 17:55 Date of Service: Nov 08, 2024 Billing Provider: TIFFANIE PIRES MD Common Visit Codes: [id number] INP/OBS CARE(HIGH) CAYETANO FICTH RESIDENT Nov 08, 2024 17:58 TIFFANIE PIRES MD Nov 15, 2024 22:43
[2024-11-08 20:04] LABS: COVID19 ANTIGEN SOFIA FIA NEGATIVE (NEGATIVE)
[2024-11-09] VITALS (15 sets, daily range): BP systolic 101–130; BP diastolic 68–83; PULSE 81–94; RESP 17–18; TEMP 97.6–98.6; O2SAT 88–100
[2024-11-09 07:39] LABS: Hemoglobin 13.9 g/dL (13.5-17.5); Nucleated Red Blood Cells % 0.1 %
[2024-11-09 07:41] LABS: Hematocrit 42.1 % (41.0-53.0); Mean Corpuscular Hemoglobin 26.3 pg (28.0-32.0); Mean Corpuscular Volume 79.9 fL (80.0-100.0)
[2024-11-09 08:05] LABS: Anion Gap 10 (5-15)
[2024-11-09 08:07] LABS: Calcium 9.5 mg/dL (8.7-10.4); Carbon Dioxide 26 mmol/L (20-31); Chloride 100 mmol/L (98-107); Potassium 4.6 mmol/L (3.5-5.1); Sodium 136 mmol/L (136-145)
[2024-11-09 08:10] LABS: BUN/Creatinine Ratio 11.8 (10.0-20.0); Blood Urea Nitrogen 13 mg/dL (9-23)
[2024-11-09 08:12] LABS: Glucose 151 mg/dL (74-106)
--- NOTE | 2024-11-09 12:32 | DVHPNRES ---
Progress Note Date Seen: Nov 09, 2024 Resident Creating Document: CAYETANO FITCH RESIDENT Medical Necessity Reason Pt with a Central, PICC or Fol: No Subjective Review of Systems 69-year-old male presented for evaluation of shortness of breath for the past 2 days. Patient reports that he had 1 day of worsening of shortness of breath which was not relieved with his inhalers or nebulization at home. Patient reports that he takes 2 L of oxygen on and off as needed. He denies any chest pain or palpitations, cough, fever, chills, recent sick contacts. He reports the shortness of breath has been constant. PMH: COPD, CVA, asthma, lung cancer, PE, CHF past surgical history: Right lung lobectomy done many years ago, repaired right inguinal hernia Social history: Patient reports having smoked half a pack for 50 years but quit in 2023, denies any alcohol use or drug abuse.He lives with his family Family history: Reviewed and noncontributory to the management of this case Allergies: None ROS 11/08/2024: Patient reports feeling better with 4 L of oxygen. He has no new active complaints. PD azithromycin and ceftriaxone as well as steroids. We will try to wean him off oxygen Pt is lying on bed : Patient reports feeling much better with 3 L of oxygen. We are trying to wean him off oxygen. Antibiotics will be continued and possible discharge tomorrow if patient able to we would easily with baseline oxygen of 2 L Objective vital signs Vital Sign Date Time Temp Pulse Resp B/P (MAP) Pulse Ox O2 Delivery O2 Flow Rate FiO2 11/09/24 11:34 86 18 96 11/09/24 09:02 130/74 11/09/24 08:29 98.2 98.2 11/09/24 07:08 Room Air 0.0 11/09/24 07:08 21 Total Intake and Output 11/08/24 11/08/24 11/09/24 15:00 23:00 07:00 Intake Total 300 ml 1050 ml 1500 ml Output Total 950 ml 800 ml Balance 300 ml 100 ml 700 ml medications Current Medications Medications Dose Ordered Sig/Arnaldo Route Start Time Stop Time Status Last Admin Dose Admin Azithromycin 250 ml @ 125 mls/hr DAILY IV 11/08/24 10:00 11/09/24 10:38 125 MLS/HR Methylprednisolone Sodium Succinate 40 mg BID IV 11/07/24 22:00 11/09/24 08:53 40 MG Furosemide 20 mg DAILY IV 11/08/24 10:00 11/09/24 08:53 20 MG Amlodipine Besylate 10 mg DAILY PO 11/08/24 10:00 11/09/24 09:02 10 MG Memantine 10 mg Q12HR PO 11/07/24 22:00 11/09/24 09:03 10 MG Acetaminophen/ Hydrocodone Bitart 1 tab Q4HP PRN PO 11/07/24 19:15 Ondansetron HCl 4 mg Q4HP PRN IV 11/07/24 19:15 Acetaminophen 650 mg Q6HP PRN PO 11/07/24 19:15 Nitroglycerin 0.4 mg Q5MINP PRN SL 11/07/24 19:15 Morphine Sulfate 2 mg Q30M PRN IV 11/07/24 19:15 Ceftriaxone Sodium 50 ml @ 100 mls/hr DAILY@09 IV 11/08/24 09:00 11/09/24 08:58 100 MLS/HR Aspirin 81 mg DAILY PO 11/08/24 10:00 UNV Patient Own Medication 1 tab DAILY PO 11/08/24 10:00 UNV Patient Own Medication 1 tab BID PO 11/08/24 10:00 UNV Enoxaparin Sodium 60 mg Q12HR SC 11/08/24 10:00 11/09/24 09:03 60 MG Aspirin 81 mg DAILY PO 11/08/24 10:00 11/09/24 09:02 81 MG Albuterol 2.5 mg Q6HR NEB 11/08/24 12:00 11/09/24 11:34 2.5 MG Ipratropium [place] 0.5 mg Q6HR NEB 11/08/24 12:00 11/09/24 11:34 0.5 MG Examination General Appearance: Alert, Oriented X3, Cooperative, Not in acute distress HEENT: Atraumatic, Mucous membranes moist/pink Respiratory: Presence of wheezing in bilateral lungs, patient on 3 L of oxygen Cardiovascular: Regular rate, Normal S1, Normal S2, No murmurs Abdominal: Active bowel sounds, Soft, no distention, no tenderness Extremities: No edema, Normal pulses, No tenderness/swelling Skin: No Significant rash, except past surgical scars Neuro: Normal speech, sensorimotor deficits none Psych/Mental Status: Mental status NL, Mood NL Nurse was there as credit advisor during examination laboratory and microbiology Laboratory Tests 11/09/24 07:14 Test 11/09/24 07:14 Range/Units Serum Glucose 151 H 74-106 mg/dL Microbiology Date/Time Source Procedure Growth Status 11/08/24 00:23 Nose MRSA Screen - Final Complete Labs and/or images reviewed: Labs reviewed by me, Image(s) reviewed by me Problem List/Assessment/Plan Problem List/Assessment/Plan #acute on chronic hypoxic respiratory failure #sepsis due to acute exacerbation of COPD #history of asthma #Pleural effusion -CXR shows: Small right pleural effusion.. The heart and mediastinal contours are grossly unremarkable. The lungs are clear. The bony structures of the chest are intact without fracture. -Med nebulization with ipratropium bromide and albuterol scheduled -Solu-Medrol 40 mg IV b.i.d. -azithromycin 500 mg/ 250 mL IV daily -Ceftriaxone 1 g IV daily -patient on 4 L of oxygen, wean as tolerated -[place] 5/325 mg 1 tab q.4 PRN -ondansetron 4 mg q.4 PRN -acetaminophen 650 mg q.6 MD - influenza flu test, COVID test, pending - influenza and pneumococcal vaccine administered intramuscularly - MRSA negative - sputum culture and blood culture, pending - continuous pulse oximetry maintain SpO2 between 88-92 - enoxaparin 60 mg subcutaneous b.i.d. #History of CHF not in exacerbation #Hypertension -last echo done on 02/01/2024 shows ejection fraction of 55% -furosemide 20 mg IV daily -Amlodipine 10 mg per orally daily -morphine 2 mg Q 30 PRN IV for chest pain -nitroglycerin 0.4 mg to 5 minute PRN - troponin negative # hypokalemia - potassium repleted #history of dementia -continue memantine 10 mg b.i.d. per orally DVT prophylaxis: Lovenox 60 mg b.i.d. subcutaneous Diet: Cardiac Goals of care discussed with the patient for more than 27 minutes: Full code status Case discussed with Dr. Pires, patient and nurse. Plan discussed with: Patient, Other (rn) My Orders My Orders Orders - CAYETANO FITCH Procedure Category Date Status Time Respiratory Culture ANNAMARIA 11/08/24 Uncollected W/ Gs 17:52 Blood Culture ANNAMARIA 11/09/24 Uncollected 04:00 Date of Service: Nov 09, 2024 Billing Provider: TIFFANIE PIRES MD Common Visit Codes: [id number] INP/OBS CARE(HIGH) CAYETANO FITCH RESIDENT Nov 09, 2024 12:32 TIFFANIE PIRES MD Nov 15, 2024 22:45
[2024-11-10] VITALS (13 sets, daily range): BP systolic 103–132; BP diastolic 63–72; PULSE 74–98; RESP 16–19; TEMP 36.9; O2SAT 92–100
[2024-11-10 06:39] LABS: Hematocrit 39.0 % (41.0-53.0); Hemoglobin 12.8 g/dL (13.5-17.5)
[2024-11-10 06:40] LABS: Mean Corpuscular Hemoglobin 26.4 pg (28.0-32.0); Mean Corpuscular Volume 80.2 fL (80.0-100.0); Nucleated Red Blood Cells % 0.1 %
[2024-11-10 06:45] LABS: Anion Gap 8 (5-15); Carbon Dioxide 29 mmol/L (20-31); Chloride 104 mmol/L (98-107); Potassium 4.0 mmol/L (3.5-5.1); Sodium 141 mmol/L (136-145)
[2024-11-10 06:46] LABS: Calcium 9.1 mg/dL (8.7-10.4)
[2024-11-10 06:51] LABS: BUN/Creatinine Ratio 12.5 (10.0-20.0); Blood Urea Nitrogen 15 mg/dL (9-23); Glucose 95 mg/dL (74-106)
[2024-11-10] MEDS: ALBUTEROL SULF 2.5 MG/0.5ML(0.5%) NEB SOLN ONE (08:19)
[2024-11-10] MEDS: INFLUENZA TRIVALENT 2024-2025 0.5 ML INJ IM ONE (08:19)
[2024-11-10] MEDS: IPRATROPIUM BROM 0.5 MG/2.5ML INH SOL ONE (08:19)
[2024-11-10] MEDS: PNEUMOCOCCAL VACC POLYS 25 MCG/0.5 ML VIAL IM ONE (08:20)
[2024-11-10] MEDS ORDERED: AZIT-185 PO (08:36)
[2024-11-10] MEDS ORDERED: PRED20TA2 PO (08:36)
[2024-11-10] MEDS: predniSONE 20 MG TAB PO SCH (08:54)
--- NOTE | 2024-11-10 12:58 | DVHDSRES ---
Discharge Summary Date of Admission Resident Creating Document: CAYETANO FITCH RESIDENT Nov 07, 2024 at 19:08 Date of Discharge: Nov 10, 2024 Admitting Diagnosis Shortness of breath Labs/Diagnostic Data: Laboratory Results Test 11/10/24 06:25 11/08/24 17:55 11/08/24 06:47 11/08/24 00:00 White Blood Count 10.4 10^3/uL (4.4-10.8) Red Blood Count 4.86 10^6/uL (4.5-5.90) Hemoglobin 12.8 g/dL (13.5-17.5) Hematocrit 39.0 % (41.0-53.0) Mean Corpuscular Volume 80.2 fL (80.0-100.0) Mean Corpuscular Hemoglobin 26.4 pg (28.0-32.0) Mean Corpuscular Hemoglobin Concent 32.9 g/dL (32.0-36.0) Red Cell Distribution Width 18.4 % (11.8-14.3) Platelet Count 282 10^3/uL (140-450) Mean Platelet Volume 7.8 fL (6.9-10.8) Neutrophils (%) (Auto) 83.4 % (37.0-80.0) Lymphocytes (%) (Auto) 8.1 % (10.0-50.0) Monocytes (%) (Auto) 8.0 % (0.0-12.0) Eosinophils (%) (Auto) 0.1 % (0.0-7.0) Basophils (%) (Auto) 0.4 % (0.0-2.0) Neutrophils # (Auto) 8.7 10 ^3/uL (1.6-8.6) Lymphocytes # (Auto) 0.8 10 ^3/uL (0.4-5.4) Monocytes # (Auto) 0.8 10 ^3/uL (0-1.3) Eosinophils # (Auto) 0 10 ^3/uL (0-0.8) Basophils # (Auto) 0 10 ^3/uL (0-0.2) Nucleated Red Blood Cells 0.1 % Sodium Level 141 mmol/L (136-145) Potassium Level 4.0 mmol/L (3.5-5.1) Chloride Level 104 mmol/L (98-107) Carbon Dioxide Level 29 mmol/L (20-31) Anion Gap 8 (5-15) Blood Urea Nitrogen 15 mg/dL (9-23) Creatinine 1.20 mg/dL (0.700-1.30) Glomerular Filtration Rate Calc 65 mL/min (>90) BUN/Creatinine Ratio 12.5 (10.0-20.0) Serum Glucose 95 mg/dL (74-106) Calcium Level 9.1 mg/dL (8.7-10.4) Influenza Type A Antigen Negative (Negative) Influenza Type B Antigen Negative (Negative) Hepatitis B Surface Antigen Negative (Negative) Hepatitis C Antibody Negative (Negative) SARS-CoV-2 Antigen (Rapid) Negative (NEGATIVE) Test 11/07/24 18:57 11/07/24 16:14 11/07/24 16:12 11/07/24 14:56 Troponin I High Sensitivity 4 ng/L (</=54) Blood Gas Specimen Type Arterial Blood Gas Sample Site Right radial Blood Gas Patient Temperature 37.0 Arterial Blood Date Drawn [id number] Arterial Blood pH 7.431 (7.350-7.450) Arterial Blood Partial Pressure CO2 40.8 mmHg (35.0-48.0) Arterial Blood Partial Pressure O2 451.2 mmHg (83.0-108.0) Arterial Blood HCO3 26.5 mmol/L (21.0-28.0) Arterial Blood Oxygen Saturation 100.0 % (94.0-98.0) Arterial Blood Base Excess 2.1 mmol/L (-2.0-3.0) Arterial Blood Oxyhemoglobin 98.2 % (94.0-98.0) Arterial Blood Carboxyhemoglobin 0.9 % (0.5-1.5) Arterial Blood Methemoglobin 0.9 % (0.0-1.5) Chema Test Yes Blood Gas Total Hemoglobin 14.50 g/dL (13.5-17.5) Blood Gas Set Respiration Rate 14.0 Blood Gas Modality Mask - bipap FiO2 % 100.0 Blood Gas EPAP 5 Blood Gas IPAP 12 Blood Gas Critical Value Read Back Yes Blood Gas Notified Whom magalis Tierney Blood Gas Notified Time [id number] Blood Gas Notified By [employer] Solution Maker ivy lebron Urine Color Colorless (Yellow) Urine Clarity Clear (Clear) Urine pH 5.5 (5.0-9.0) Urine Specific [place] 1.009 (1.001-1.035) Urine Protein Trace (Negative) Urine Ketones Negative (Negative) Urine Blood Negative /uL (Negative) Urine Nitrite Negative (Negative) Urine Bilirubin Negative (Negative) Urine Urobilinogen Normal mg/dL (Negative) Urine Leukocyte Esterase Negative /uL (Negative) Urine RBC <1 /hpf (0 - 3) Urine Microscopic WBC < 1 /HPF (0-3) Urine Squamous Epithelial Cells Few /hpf (<5) Urine Bacteria None seen /hpf (None Seen) Urine Glucose Normal mg/dL (Normal) Magnesium Level 2.2 mg/dL (1.6-2.6) Total Bilirubin 0.5 mg/dL (0.2-1.0) Aspartate Amino Transferase (AST) 20 U/L (13-40) Alanine Aminotransferase (ALT) 18 U/L (7-40) Alkaline Phosphatase 109 U/L (46-116) B-Type Natriuretic Peptide 17.22 pg/mL (0-100) Total Protein 7.2 g/dL (5.7-8.2) Albumin 4.5 g/dL (3.2-4.8) Test 11/07/24 14:43 Urine Opiates Screen Neg (NEGATIVE) Urine Fentanyl Screen Neg (NEGATIVE) Urine Barbiturates Screen Neg (NEGATIVE) Urine Phencyclidine Screen Neg (NEGATIVE) Urine Amphetamines Screen Neg (NEGATIVE) Urine Benzodiazepines Screen Neg (NEGATIVE) Urine Cocaine Screen Neg (NEGATIVE) Urine Cannabinoids Screen Neg (NEGATIVE) Other Laboratory Tests 11/10/24 06:25 Brief Hx & Hospital Course: Iram Gentile, 69-year-old male presented for evaluation of shortness of breath for the past 2 days. Patient reports that he had 1 day of worsening of shortness of breath which was not relieved with his inhalers or nebulization at home. Patient reports that he takes 2 L of oxygen on and off as needed. He denies any chest pain or palpitations, cough, fever, chills, recent sick contacts. He reports the shortness of breath has been constant. PMH: COPD, CVA, asthma, lung cancer, PE, CHF past surgical history: Right lung lobectomy done many years ago, repaired right inguinal hernia Social history: Patient reports having smoked half a pack for 50 years but quit in 2023, denies any alcohol use or drug abuse.He lives with his family Family history: Reviewed and noncontributory to the management of this case Allergies: None Brief history of hospitalization: Patient came to the emergency sepsis due to acute exacerbation of COPD. He had acute on chronic hypoxic respiratory failure and x-ray showed small right pleural effusion. We started the patient on med nebulization with ipratropium bromide and albuterol scheduled, Solu-Medrol 40 mg IV b.i.d. and azithromycin 500 mg/ 250 mL IV daily, ceftriaxone 1 g IV daily as well. We put the patient on 4 L of oxygen to help With his breathing. We did a influenza and COVID test which came back negative and gave the patient influenza and pneumococcal vaccine intramuscularly as well. MRSA nares came back negative and for pain the patient complained [place] and acetaminophen were put PRN. We continuously monitored his SpO2 and maintain oxygen saturation between 88-92. We also gave the patient enoxaparin 60 mg subcutaneously b.i.d. he has history of pulmonary embolism. For patient's history of CHF which was not in exacerbation and hypertension we gave the patient furosemide 20 mg IV daily, amlodipine 10 mg per oral daily had checked his troponins which were negative, reviewed his last echo done on 02/01/2024 the ejection fraction of 55. Labs showed low potassium levels which were repleted and we patient's history of dementia with continued his home medication of memantine 10 mg b.i.d. per orally. We slowly weaned the off oxygen and patient has been stable without it. He is now stable for discharge in his agreed to the discharge plan. We are sending him with prednisolone 40 mg for 7 days, azithromycin 250 mg for 5 days and patient has been counseled to resume all other home medications. General Appearance: Alert, Oriented X3, Cooperative, Not in acute distress HEENT: Atraumatic, Mucous membranes moist/pink Respiratory: Presence of mild wheezing in right lung Cardiovascular: Regular rate, Normal S1, Normal S2, No murmurs Abdominal: Active bowel sounds, Soft, no distention, no tenderness Extremities: No edema, Normal pulses, No tenderness/swelling Skin: No Significant rash, except past surgical scars Neuro: Normal speech, sensorimotor deficits none Psych/Mental Status: Mental status NL, Mood NL Nurse was there as machine deicer element winder during examination Operations or Procedures EXAM: XY CHEST PORTABLE Indication: acute resp distress IMPRESSION: Small right pleural effusion and right basilar opacity. Right pulmonary emphysema. Condition at Discharge: Stable Final Diagnosis/Problems List #acute on chronic hypoxic respiratory failure #sepsis due to acute exacerbation of COPD #right sided Pleural effusion #Hypertension #hypokalemia #history of asthma #History of CHF not in exacerbation #history of dementia Discharge Disposition: Home Discharge Instruct/Medications Diet: Consistent carbohydrate, Cardiac 2g Na,low cholest Activity: No Restrictions, As Tolerated Follow Up/Referral: Follow up with primary care physician within 2 weeks Follow up in discharge clinic within 1 week Medications: Azithromycin to 250 mg for 5 days Prednisolone 40 mg per orally daily for 3 days resume all home medications Scheduled Albuterol Sulfate (Albuterol Sulfate Hfa), 2 PUFF INH Q6HR Amlodipine Besylate (Amlodipine Besylate), 1 TAB PO DAILY Apixaban Base (Eliquis), 5 MG PO BID Aspirin (Aspirin Low Dose), 1 TAB PO DAILY, (Reported) Azithromycin (Zithromax Tablet), 250 MG PO BID Hctz (Hydrochlorothiazide), 1 TAB PO QAM, (Reported) Memantine Hydrochloride (Memantine HCl), 1 TAB PO BID, (Reported) Prednisone (Prednisone), 20 MG PO DAILY Prednisone (Prednisone), 40 MG PO DAILY Umeclidinium-Vilanterol (Anoro Ellipta 62.5-25 Mcg/INH), 1 AER IN DAILY Scheduled PRN Albuterol Sulfate (Ventolin Mdi), 90 MCG IN QID PRN Albuterol Sulfate (Ventolin Mdi), 90 MCG IN QID PRN Ipratropium-Albuterol (Ipratropium [place]/Albut), 2 PUFF INH PRN PRN for SHORTNESS OF BREATH Discharge Statement: "Patient was advised to return to the ER or call 911 if any headaches, dizziness, shortness of breath, chest pain, abdominal pain, bleeding, fevers, or worsening of medical condition. Patient was counseled about treatment plan, medications, possible side effects, patientverbalized understanding. All questions were answered to the best of my ability. This discharge took greater then 30 minutes in planning, reviewing documentation, counseling the patient, and discussing with other team members." ASSESSMENT ASSESSMENT Assessment Acute exacerbation of COPD Right-sided effusion Date of Service: Nov 10, 2024 Billing Provider: TIFFANIE PIRES MD Common Visit Codes: 04295-TVR/OBS DISCH DAY >30min CAYETANO FITCH RESIDENT Nov 10, 2024 12:57 TIFFANIE PIRES MD Nov 15, 2024 23:15
[2024-11-10] MEDS ORDERED: UMEC1AER IN (13:45)
[2024-11-10] MEDS ORDERED: ALBU108A5 INH (13:45)
== END 2024-11-10 13:41 | disposition home or self-care (01) | DRG 871 ==
LOC: EDBD 14:37 → ER 14:37 → OVERFLOW 19:08 → TELE-WESTW 22:24 → WEST WING 11-08 21:59
PROVIDERS: ADMIT Student in an Organized Health Care Education/Training Program; ATTEND Student in an Organized Health Care Education/Training Program
PROC: 5A09357 Assistance with Respiratory Ventilation, Less than 24 Consecutive Hours, Continuous Positive Airway Pressure (ICD-10-PCS; principal; 2024-11-07)
DX: A41.50 Gram-negative sepsis, unspecified (principal); J15.69 Pneumonia due to other Gram-negative bacteria; J96.21 Acute and chronic respiratory failure with hypoxia; J15.9 Unspecified bacterial pneumonia; J44.1 Chronic obstructive pulmonary disease with (acute) exacerbation; Z20.822 Contact with and (suspected) exposure to COVID-19; I50.9 Heart failure, unspecified; J45.909 Unspecified asthma, uncomplicated; J43.9 Emphysema, unspecified; E87.6 Hypokalemia; Z86.73 Personal history of transient ischemic attack (TIA), and cerebral infarction without residual deficits; Z85.118 Personal history of other malignant neoplasm of bronchus and lung; Z86.711 Personal history of pulmonary embolism
CPT/HCPCS: 36415; 36600; 71045; 80048; 80053; 80307; 81001; 82805; 83735; 83880; 84484; 85025; 86803; 87040; 87081; 87340; 87426; 87804; 90656; 93005; 94640; 94644; 96374; G0378

== ENCOUNTER 2024-11-28 10:59 | Inpatient (IN) | payer MEDICARE, MEDICAID ==
[~2024-11-28] VITALS: Ht 165.1 cm; Wt 59.3 kg
[2024-11-28] VITALS (7 sets, daily range): BP systolic 80–131; BP diastolic 47–77; PULSE 71–87; RESP 18; TEMP 97.8; O2SAT 98–100
[~2024-11-28 10:59] MED LIST changes: +AZIT-185 PO; -AZIT500T66 PO
--- NOTE | 2024-11-28 11:06 | ED.PDOC ---
SOB-HPI HPI Comments This is a 69 year old male FOZIA presenting to the ED with chief complaint of SOB. Patient reports that he has been experiencing SOB for the past hour. Patient relays that he ran out of breathing treatment medication since this morning, not being able to do one during symptom onset. EMS states they provided a breathing treatment with relief in symptoms noted and 100% O2 saturation on RA after treatment. Patient denies any chest pain, cough, dizziness, fever, or chills. Chief Complaint: Shortness of Breath Time Seen by MD: 11:03 Primary Care Provider: NONE Reviewed notes: Nurses Notes, Rock Mason Notes, Medications, Allergies Information Source: Patient, Emergency Med Personnel Mode of Arrival: EMS Severity: Moderate Timing: Hours Duration: Since onset Context: At Rest PE Risk Factors: None History of: None Prehospital treatment: None Modifying Factors: Nothing Past Medical History PAST MEDICAL HISTORY: Asthma, Cancer, COPD, CVA, HTN, VA, PE Surgical History (Other): Partial Right lung lobectomy Family History Family History: Reviewed,noncontributory to illness, Family hx of Cancer Social History Smoker: Quit Greater Than 1 Year, Cigarettes Alcohol: Denies ETOH Use Drugs: Denies Drug Use Lives In: Home Constitutional: denies: chills, diaphoresis, fatigue, fever, malaise, sweats, weakness, others EENTM: denies: blurred vision, double vision, ear bleeding, ear discharge, ear drainage, ear pain, ear ringing, eye pain, eye redness, hearing loss, mouth pain, mouth swelling, nasal discharge, nose bleeding, nose congestion, nose pain, photophobia, tearing, throat pain, throat swelling, voice changes, others Respiratory: reports: shortness of breath; denies: cough, hemoptysis, orthopnea, SOB at rest, SOB with excertion, stridor, wheezing, others Cardiovascular: denies: chest pain, dizzy spells, diaphoresis, Dyspnea on exertion, edema, irregular heart beat, left arm pain, lightheadedness, palpitations, PND, syncope, others Gastrointestinal: denies: abdomen distended, abdominal pain, blood streaked bowels, constipated, diarrhea, dysphagia, difficulty swallowing, hematemesis, melena, nausea, poor appetite, poor fluid intake, rectal bleeding, rectal pain, vomiting, others Genitourinary: denies: burning, dysuria, flank pain, frequency, hematuria, incontinence, penile discharge, penile sore, pain, testicle pain, testicle swelling, urgency, others Neurological: denies: dizziness, fainting, headache, left sided numbness, left sided weakness, numbness, paresthesia, pre-existing deficit, right sided numbness, right sided weakness, seizure, speech problems, tingling, tremors, weakness, others Musculoskeletal: denies: back pain, gout, joint pain, joint swelling, muscle pain, muscle stiffness, neck pain, others Integumetry: denies: bruises, change in color, change in hair/nails, dryness, laceration, lesions, lumps, rash, wounds, others Allergic/Immunocompromised: denies: Difficulty Healing, Frequent Infections, Hives, Itching, others Hematologic/Lymphatic: denies: anemia, blood clots, easy bleeding, easy bruising, swollen glands, others Endocrine: denies: excessive hunger, excessive sweating, excessive thirst, excessive urination, flushing, intolerance to cold, intolerance to heat, unexplained weight gain, unexplained weight loss, others Psychiatric: denies: anxiety, bipolar disorder, depression, hopeless, panic disorder, schizophrenia, sleepless, suicidal, others All Other Systems: Reviewed and Negative Physical Exam General Appearance: Severe Distress HEENT: Normal ENT Inspection, Pharynx Normal, TMs Normal Neck: Full Range of Motion, Non-Tender, Normal, Normal Inspection Respiratory: Accessory Muscle Use, Chest Non-Tender, Decreased Breath Sounds, No Accessory Muscle Use, Respiratory Distress, Wheezing Cardiovascular: No Edema, No JVD, No Murmur, No Gallop, Tachycardia Breast Exam: Deferred Gastrointestinal: No Organomegaly, Non Tender, No Pulsatile Mass, Normal Bowel Sounds, Soft Genitalia: Deferred Pelvic: Deferred Rectal: Deferred Extremities: No calf tenderness, Normal capillary refill, Normal inspection, Normal range of motion, Non-tender, No pedal edema Musculoskeletal : Apperance: Normal Neurologic: stone chimney mason II-XII nml as Tested, Motor Weakness, Normal Affect, Normal Mood, No Sensory Deficits Cerebellar Function: Unable to Test Reflexes: Normal Skin: Diaphoresis, Normal Color, Warm Lymphatic: No Adenopathy EKG EKG : Pulse Rate (adult): 87 [place]: Normal Cardiac Rhythm: NSR Block: None ST: Nonsp Was a procedure done? Was a procedure done?: Yes Sedation Sedation?: No Informed consent obtained: No Central Line Recorder of insertion practice: Furnace Combustion Analyst Occupation of flame degreaser: Attending Physician Indication: Hypotension, CVP monitoring, Volume resuscitation, Suspected infection Room prepared for procedure: Yes Furnace Combustion Analyst performed hand hygien: Yes Maximal sterile barrier precau: Mask/Eye shield, Sterile gown, Cap, Sterlie gloves, Large sterlie drape Skin Preparation: Chlorhexidine gluconate Skin preparation completely dr: Yes Insertion site: Left, Internal jugular Central line catheter type: Hmp-rhwoevbo-dcm dialysis Number of lumens: 3 Central line exchanged over a: No Antiseptic ointment applied to: No Post Assessment: Chest X-Ray, Proper placement Informed consent obtained: Yes Risks/benefits/alt described: Yes Intubation Indication: Respiratory Insufficiency Prep: Preoxygenation Medicated with: Other (20 mg etomidate) Intubation Approach: Orotracheal (7.5 ETT SECURED AT 24CM AT THE LIP) Intubation size: cm (7.5CM) Informed consent obtained: Yes Risks/benefits/alt described: Yes Differential Dx Differential Diagnosis: Asthma, Bronchitis, CHF, COPD, Pneumonia, Other (Cardiopulmonary arrest) X-Ray, Labs, Meds, VS Vital Signs Date Time Temp Pulse Resp B/P (MAP) Pulse Ox O2 Delivery O2 Flow Rate FiO2 11/28/24 16:00 131/77 11/28/24 16:00 131/77 11/28/24 16:00 131/77 11/28/24 16:00 81 11/28/24 15:52 75 18 118/72 (87) 100 30 11/28/24 15:00 123/76 11/28/24 15:00 123/76 11/28/24 14:30 88 15 127/79 (95) 100 11/28/24 14:15 91 18 126/73 (90) 99 11/28/24 14:06 97 20 124/79 (94) 100 30 11/28/24 14:00 119/77 11/28/24 14:00 119/77 11/28/24 14:00 119/77 11/28/24 14:00 95 20 119/77 (91) 100 11/28/24 13:45 97 16 121/72 (88) 99 11/28/24 13:30 101 19 110/69 (83) 100 10/14/25 13:15 104 15 112/74 (87) 99 11/28/24 13:08 111/77 11/28/24 13:00 108 26 120/75 (90) 98 11/28/24 12:54 167/116 11/28/24 12:53 167/116 11/28/24 12:45 115 27 102/71 (81) 96 11/28/24 12:45 76 18 98 Mechanical Ventilator+ 30 30 11/28/24 12:32 121 24 167/116 (133) 97 30 11/28/24 12:30 120 15 110/71 (84) 96 11/28/24 12:07 140 21 167/116 (133) 99 11/28/24 11:22 16 97 Room Air* 0 21 11/28/24 11:07 87 11/28/24 11:05 87 11/28/24 11:01 97.8 88 18 134/72 97 97.8 Lab Test 11/28/24 14:25 11/28/24 14:24 11/28/24 13:58 11/28/24 13:03 Range/Units Troponin I High Sensitivity 23 7 </=54 ng/L C-Reactive Protein High Sensitivity 0.14 <1.0 mg/dL Urine Color Colorless Yellow Urine Clarity Clear Clear Urine pH 7.0 5.0-9.0 Urine Specific [place] 1.009 1.001-1.035 Urine Protein 2+ H Negative Urine Ketones Negative Negative Urine Blood Trace H Negative /uL Urine Nitrite Negative Negative Urine Bilirubin Negative Negative Urine Urobilinogen Normal Negative mg/dL Urine Leukocyte Esterase Negative Negative /uL Urine RBC 1 0 - 3 /hpf Urine Microscopic WBC 1 0-3 /HPF Urine Squamous Epithelial Cells None seen <5 /hpf Urine Bacteria None seen None Seen /hpf Urine Hyaline Casts Mod 0 - 2 /lpf Urine Glucose Trace Normal mg/dL Urine Opiates Screen Pending Urine Fentanyl Screen Pending Urine Barbiturates Screen Pending Urine Phencyclidine Screen Pending Urine Amphetamines Screen Pending Urine Benzodiazepines Screen Pending Urine Cocaine Screen Pending Urine Cannabinoids Screen Pending Blood Gas Specimen Type Arterial Blood Gas Sample Site Central line Blood Gas Patient Temperature 37.0 Arterial Blood Date Drawn [id number] Arterial Blood pH 7.343 L 7.350-7.450 Arterial Blood Partial Pressure CO2 37.5 35.0-48.0 mmHg Arterial Blood Partial Pressure O2 100.8 83.0-108.0 mmHg Arterial Blood HCO3 19.9 L 21.0-28.0 mmol/L Arterial Blood Oxygen Saturation 97.4 94.0-98.0 % Arterial Blood Base Excess -5.2 L -2.0-3.0 mmol/L Arterial Blood Oxyhemoglobin 95.9 94.0-98.0 % Arterial Blood Carboxyhemoglobin 0.6 0.5-1.5 % Arterial Blood Methemoglobin 0.9 0.0-1.5 % Chema Test Modified Blood Gas Total Hemoglobin 14.40 13.5-17.5 g/dL Blood Gas Set Respiration Rate 18.0 Blood Gas Modality Vent - ac FiO2 % 30.0 Blood Gas Tidal Volume 450.0 Blood Gas PEEP or CPAP 5.0 Test 11/28/24 11:20 Range/Units White Blood Count 10.1 4.4-10.8 10^3/uL Red Blood Count 5.33 4.5-5.90 10^6/uL Hemoglobin 14.3 13.5-17.5 g/dL Hematocrit 43.7 41.0-53.0 % Mean Corpuscular Volume 82.0 80.0-100.0 fL Mean Corpuscular Hemoglobin 26.9 L 28.0-32.0 pg Mean Corpuscular Hemoglobin Concent 32.8 32.0-36.0 g/dL Red Cell Distribution Width 19.8 H 11.8-14.3 % Platelet Count 297 140-450 10^3/uL Mean Platelet Volume 7.7 6.9-10.8 fL Neutrophils (%) (Auto) 74.1 37.0-80.0 % Lymphocytes (%) (Auto) 13.5 10.0-50.0 % Monocytes (%) (Auto) 7.1 0.0-12.0 % Eosinophils (%) (Auto) 4.2 0.0-7.0 % Basophils (%) (Auto) 1.1 0.0-2.0 % Neutrophils # (Auto) 7.5 1.6-8.6 10 ^3/uL Lymphocytes # (Auto) 1.4 0.4-5.4 10 ^3/uL Monocytes # (Auto) 0.7 0-1.3 10 ^3/uL Eosinophils # (Auto) 0.4 0-0.8 10 ^3/uL Basophils # (Auto) 0.1 0-0.2 10 ^3/uL Nucleated Red Blood Cells 0.1 % Sodium Level 147 H 136-145 mmol/L Potassium Level 4.7 3.5-5.1 mmol/L Chloride Level 111 H 98-107 mmol/L Carbon Dioxide Level 26 20-31 mmol/L Anion Gap 10 5-15 Blood Urea Nitrogen 6 L 9-23 mg/dL Creatinine 1.15 0.700-1.30 mg/dL Glomerular Filtration Rate Calc 69 >90 mL/min BUN/Creatinine Ratio 5.2 L 10.0-20.0 Serum Glucose 81 74-106 mg/dL Calcium Level 9.7 8.7-10.4 mg/dL Troponin I High Sensitivity 6 </=54 ng/L B-Type Natriuretic Peptide 28.73 0-100 pg/mL Current Medications Medications (Trade) Dose Ordered Sig/Arnaldo Route Start Time Stop Time Status Last Admin Methylprednisolone Sodium Succinate (Solu Medrol) 125 mg ONCE ONCE IV 11/28/24 11:15 11/28/24 11:16 DC 11/28/24 12:04 Ipratropium [place] (Atrovent Medneb) 1 mg ONCE ONCE [facility] 11/28/24 11:15 11/28/24 11:16 DC 11/28/24 11:20 Albuterol (Ventolin Medneb) 10 mg ONCE ONCE N 11/28/24 11:15 11/28/24 11:16 DC 11/28/24 11:20 Etomidate 20 mg ONCE ONCE IV 11/28/24 12:15 11/28/24 12:16 DC 11/28/24 12:06 Succinylcholine Chloride (Quelicin) 100 mg ONCE ONCE IV 11/28/24 12:15 11/28/24 12:16 DC 11/28/24 12:07 Midazolam HCl 50 ml @ 1 mls/hr Q24H IV 11/28/24 12:15 11/28/24 12:53 Propofol 100 ml @ 1.989 mls/ hr Q24H IV 11/28/24 12:30 11/28/24 12:54 Fentanyl Citrate 250 ml @ 2.5 mls/hr Q24H IV 11/28/24 12:30 11/28/24 13:08 IV Hep-Lock was established. Chest XR #1 indicates: 1. Tip of the endotracheal tube 6.1 cm above the eugenio. 2. Decreased bilateral opacities with mild residual in the right lung base. Chest XR #2 indicates: 1. New left IJ central line with its tip crossing the midline and ascending into the lower portion of the right internal jugular vein. Recommend positional adjustment or replacement. 2. No definite pneumothorax, although there are some irregular linear opacities in the left upper lobe. Recommend short interval follow-up chest x-ray to re- evaluate for pneumothorax after the left IJ central line position has been adjusted. 3. Mechanical ventilation with the tip of the endotracheal tube 5.8 cm above the eugenio. Chest XR #3 indicates: Left central venous catheter extends into the right internal jugular vein. Repositioning required. Initially, the patient received a breathing treatment and then became very short of breath. The patient then became very diaphoretic and became very hypoxic. An IV was placed and at that time it was determined that the patient will be intubated. The procedure note for intubation is in place at this time. Following intubation, the patient was sedated with Versed and then propofol. A Yarbrough catheter was placed. An NG-tube was also placed. The patient was given Solu-Medrol 125 mg IV push We then placed the central line in the left internal jugular but the chest x-ray for placement showed that it had gone to the right internal jugular We did attempt to pull back the central line but eventually had to remove it. The patient does have two lines at this time. Currently the patient is sedated and will be admitted to the ICU The CBC is within normal limits The chemistry panel is within normal limits The urine tox is pending. The urine test is negative for any infection The chest x-ray that was done after removing the left internal jugular shows no pneumothorax at this time The patient is being admitted to the hospitalist Images Reviewed?: Images reviewed and evaluated by me Time of 1ST Reevaluation: 17:17 Reevaluation 1ST: Unchanged Patient Education/Counseling: Diagnosis, Treatment Family Education/Counseling: No Family Present SEPSIS Sepsis Screen Physician Orders Chest Portable (11/28/24 11:04) Heplock Iv (11/28/24 11:04) Call Center Dispatcher (11/28/24 11:04) Blood Pressure (11/28/24 11:04) Pulse Oximetry (11/28/24 11:04) Electrocardigram (11/28/24 11:04) Electrocardigram (11/28/24 12:04) Electrocardigram (11/28/24 14:04) Med Neb Initial Treatment (11/28/24 11:04) Yarbrough Catheters (11/28/24 ) Ngt/Ogt (11/28/24 ) Midazolam Drip 50 Mg/50ml (Versed Drip 5 (11/28/24 12:15) Rass Sedation Scale Q1HR (11/28/24 12:14) Abg W/ Co-Ox (11/28/24 13:15) Ventilator Orders (11/28/24 12:24) Respiratory Culture W/ Gs (11/28/24 12:24) Propofol (Diprivan) (11/28/24 12:30) Fentanyl Drip 2500mcg/250mlns (11/28/24 12:30) Communication Order (11/28/24 12:25) Communication Order (11/28/24 12:27) Chest Portable (11/28/24 13:30) Chest Portable (11/28/24 15:40) Vital Signs Date Time Temp Pulse Resp B/P (MAP) Pulse Ox O2 Delivery O2 Flow Rate FiO2 11/28/24 16:00 131/77 11/28/24 16:00 131/77 11/28/24 16:00 131/77 11/28/24 16:00 81 11/28/24 15:52 75 18 118/72 (87) 100 30 11/28/24 15:00 123/76 11/28/24 15:00 123/76 11/28/24 14:30 88 15 127/79 (95) 100 11/28/24 14:15 91 18 126/73 (90) 99 11/28/24 14:06 97 20 124/79 (94) 100 30 11/28/24 14:00 119/77 11/28/24 14:00 119/77 11/28/24 14:00 119/77 11/28/24 14:00 95 20 119/77 (91) 100 11/28/24 13:45 97 16 121/72 (88) 99 11/28/24 13:30 101 19 110/69 (83) 100 11/28/24 13:15 104 15 112/74 (87) 99 11/28/24 13:08 111/77 11/28/24 13:00 108 26 120/75 (90) 98 11/28/24 12:54 167/116 11/28/24 12:53 167/116 11/28/24 12:45 115 27 102/71 (81) 96 11/28/24 12:45 76 18 98 Mechanical Ventilator+ 30 30 11/28/24 12:32 121 24 167/116 (133) 97 30 11/28/24 12:30 120 15 110/71 (84) 96 11/28/24 12:07 140 21 167/116 (133) 99 11/28/24 11:22 16 97 Room Air* 0 21 11/28/24 11:07 87 11/28/24 11:05 87 11/28/24 11:01 97.8 88 18 134/72 97 97.8 Laboratory Tests Test 11/28/24 11:20 White Blood Count 10.1 10^3/uL (4.4-10.8) Medications Medications Dose Ordered Sig/Arnaldo Route Start Time Stop Time Status Last Admin Dose Admin Albuterol 10 mg ONCE ONCE [facility] 11/28/24 11:15 11/28/24 11:16 DC 11/28/24 11:20 Etomidate 20 mg ONCE ONCE IV 11/28/24 12:15 11/28/24 12:16 DC 11/28/24 12:06 Fentanyl Citrate 250 ml @ 2.5 mls/hr Q24H IV 11/28/24 12:30 11/28/24 13:08 Ipratropium [place] 1 mg ONCE ONCE [facility] 11/28/24 11:15 11/28/24 11:16 DC 11/28/24 11:20 Methylprednisolone Sodium Succinate 125 mg ONCE ONCE IV 11/28/24 11:15 11/28/24 11:16 DC 11/28/24 12:04 Midazolam HCl 50 ml @ 1 mls/hr Q24H IV 11/28/24 12:15 11/28/24 12:53 Propofol 100 ml @ 1.989 mls/ hr Q24H IV 11/28/24 12:30 11/28/24 12:54 Succinylcholine Chloride 100 mg ONCE ONCE IV 11/28/24 12:15 11/28/24 12:16 DC 11/28/24 12:07 Departure 1 Departure Time of Disposition: 17:16 Impression: Primary Impression: Acute and chronic respiratory failure with hypoxia Additional Impressions: COPD with acute exacerbation Sepsis Qualified Codes: A41.9 - Sepsis, unspecified organism Disposition: ADMITTED INPATIENT Admit to: ICU Condition: Fair Critical Care Note Critical Care Time?: Yes (45 min-critical care time only) Stability Stability form required: Yes Unstable for transfer: ICU, CCU, PCU, JOVANNI (Intensive VS monitoring), ED Physician Assesment (Clinical assesment) Heart Score Heart Score: Heart Score Response (Comments) Value History N/A 0 EKG N/A 0 Age N/A 0 Risk Factors N/A 0 Troponin N/A 0 Total 0 I personally scribed for DB CAMPOS MD ([email or web address]) on 11/28/24 at 11:06. Electronically submitted by Ashok Michelle ([email or web address]). I personally scribed for DB CAMPOS MD ([email or web address]) on 11/28/24 at 12:16. Electronically submitted by Ashok Michelle ([email or web address]). I personally scribed for DB CAMPOS MD ([email or web address]) on 11/28/24 at 13:11. Electronically submitted by Ashok Michelle ([email or web address]). I personally scribed for DB CAMPOS MD ([email or web address]) on 11/28/24 at 17:19. Electronically submitted by Ashok Michelle ([email or web address]). DB CAMPOS MD Nov 28, 2024 11:06
--- NOTE | 2024-11-28 11:13 | ECG ---
[facility] Test Date: 2024-11-28 Test Time: 11:05:14 Pat Name: KAISER BARRERA Department: [facility] ED Patient ID: [id number] Room: Gender: [employer] V[employer] Installer: [place] : 1955 Requested By: DB CAMPOS Order Number: [id number] Reading MD: Bryan Canela Measurements Intervals Mason Rate: 87 P: 81 CO: 153 QRS: 38 QRSD: 90 T: 75 QT: 376 QTc: 453 Interpretive Statements Sinus rhythm Baseline wander in lead(s) V1 Electronically Signed On 11-28-2024 15:25:25 PDT by Bryan Canela Please click the below link to view image of tracing.
[2024-11-28] MEDS: IPRATROPIUM BROM 0.5 MG/2.5ML INH SOL HHN ONE (11:20)
[2024-11-28] MEDS: ALBUTEROL SULF 2.5 MG/0.5ML(0.5%) NEB SOLN HHN ONE (11:20)
[2024-11-28 11:39] LABS: Hematocrit 43.7 % (41.0-53.0); Hemoglobin 14.3 g/dL (13.5-17.5); Mean Corpuscular Hemoglobin 26.9 pg (28.0-32.0); Mean Corpuscular Volume 82.0 fL (80.0-100.0); Nucleated Red Blood Cells % 0.1 %
[2024-11-28 11:50] LABS: Potassium 4.7 mmol/L (3.5-5.1)
[2024-11-28 11:51] LABS: Anion Gap 10 (5-15); Calcium 9.7 mg/dL (8.7-10.4); Carbon Dioxide 26 mmol/L (20-31)
[2024-11-28 11:56] LABS: BUN/Creatinine Ratio 5.2 (10.0-20.0); Blood Urea Nitrogen 6 mg/dL (9-23); Chloride 111 mmol/L (98-107); Glucose 81 mg/dL (74-106); Sodium 147 mmol/L (136-145)
[2024-11-28] MEDS: methylPREDNISolone SOD SUCC 125 MG/2 ML VL IV ONE (12:04)
[2024-11-28] MEDS: ETOMIDATE (2MG/ML) 20ML VIAL IV ONE ×2 (12:06→12:15)
[2024-11-28] MEDS: SUCCINYLCHOLINE CHLORIDE 20 MG/ML 10ML VIAL IV ONE ×3 (12:07→14:08)
[2024-11-28] MEDS: MIDAZOLAM DRIP 50 mg/50mL 50 ML IV ONE (12:15)
[2024-11-28] MEDS: fentaNYL Drip 2500mCg/250mlNS 250 ML IV ONE (12:26)
[2024-11-28] MEDS: PROPOFOL 100 ML IV ONE (12:27)
[2024-11-28] MEDS: MIDAZOLAM DRIP 50 mg/50mL 50 ML IV SCH (12:53)
[2024-11-28] MEDS: PROPOFOL 100 ML IV SCH (12:54)
[2024-11-28] MEDS: fentaNYL Drip 2500mCg/250mlNS 250 ML IV SCH (13:08)
--- NOTE | 2024-11-28 13:18 | DVH ---
Procedure: XY CHEST PORTABLE History: SOB /ETT PLCMNT Comparison: XY CHEST PORTABLE on DOS: 11/07/24, 08/01/24 Technique: Single view of the chest. Findings: Tip of the endotracheal tube 6.1 cm above the eugenio. Decreased bilateral opacities with mild residuals in the right lung base. Small right pleural effusio n. The cardiomediastinal silhouette is stable. Impression: 1. Tip of the endotracheal tube 6.1 cm above the eugenio. 2. Decreased bilateral opacities with mild residual in the right lung base.
[2024-11-28 13:35] LABS: Urine Protein, UAD 2+ (Negative)
[2024-11-28 14:04] LABS: Base Excess -5.2 mmol/L (-2.0-3.0)
--- NOTE | 2024-11-28 14:05 | DVH ---
EXAM: XY CHEST PORTABLE HISTORY: CENTRAL LINE VERIFICATION COMPARISON: XY CHEST PORTABLE on DOS: 11/28/24, XY CHEST PORTABLE on DOS: 11/07/24, XY CHEST PORTABLE on DOS: 10/17/24, XY CHEST PORTABLE on DOS: 09/05/24, XY CHEST PORTABLE on DOS: 08/22/24 TECHNIQUE: Portable AP views of the chest were performed. FINDINGS/IMPRESSION: 1. New left IJ central line with its tip crossing the midline and ascending into the lower portion of the right internal jugular vein. Recommend positional adjustment or replacement. 2. No definite pneumothorax, although there are some irregular linear opacities in the left upper lob e. Recommend short interval follow-up chest x-ray to re-evaluate for pneumothorax after the left IJ c entral line position has been adjusted. 3. Mechanical ventilation with the tip of the endotracheal tube 5.8 cm above the eugenio.
[2024-11-28] MEDS ORDERED: ONDANSETRON HCL 4 MG/2 ML VIAL IV PRN (16:15)
[2024-11-28] MEDS ORDERED: MORPHINE SULFATE INJ 2 MG/ml SYRG IV PRN (16:15)
[2024-11-28] MEDS ORDERED: NITROGLYCERIN 0.4 MG SL TAB SL PRN (16:15)
--- NOTE | 2024-11-28 16:20 | DVH ---
CHEST RADIOGRAPH Indication: s/p CENTRAL LINE PLACEMENT TO LEFT NECK AND OG TUBE PLACEMEN Technique: Single frontal view of the chest was obtained COMPARISON: XY CHEST PORTABLE on DOS: 11/28/24, XY CHEST PORTABLE on DOS: 11/28/24, XY CHEST PORTABLE on DOS: 11/07/24, XY CHEST PORTABLE on DOS: 10/17/24, XY CHEST PORTABLE on DOS: 09/05/24 FINDINGS: Lines and Tubes: Endotracheal tube and enteric catheter in satisfactory position. Left central venous catheter extends into the right internal jugular vein. Repositioning required. Lungs: Clear. Pleura: No effusion. No pneumothorax. Cardiomediastinal contours: Unremarkable. Bones: Unremarkable. IMPRESSION: Left central venous catheter extends into the right internal jugular vein. Repositioning required.
--- NOTE | 2024-11-28 16:23 | DVHHP2 ---
History of Present Illness Reason for Visit: SOB History of Present Illness Brandon Gentile is a 69-year-old male with past medical history of asthma, COPD, CVA, hypertension, TN, PE, partial right lung lobectomy, and tobacco use who presents to the ED with shortness of breath. Per EMS reports patient ran out of his breathing treatments and was brought in by EMS. Per reports from nurse patient was in the hallway was extremely short of breath then required intubation by the ED physician due to respiratory failure. Patient intubated at bedside unable to obtain further history. 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: CVA Past Medical History Lung cancer Past Surgical History: Other (Partial right lung lobectomy) Review of Systems Respiratory: Shortness of breath Allergies: Coded Allergies: NO KNOWN ALLERGIES (Unverified , 03/24/22) Medications Current Medications Medications Dose Ordered Sig/Arnaldo Route Start Time Stop Time Status Last Admin Dose Admin Midazolam HCl 50 ml @ 1 mls/hr Q24H IV 11/28/24 12:15 11/28/24 12:53 15 MLS/HR Propofol 100 ml @ 1.989 mls/ hr Q24H IV 11/28/24 12:30 11/28/24 12:54 3.978 MLS/HR Fentanyl Citrate 250 ml @ 2.5 mls/hr Q24H IV 11/28/24 12:30 11/28/24 13:08 2.5 MLS/HR Exam Vital Signs Vital Signs Date Time Temp Pulse Resp B/P (MAP) Pulse Ox O2 Delivery O2 Flow Rate FiO2 11/28/24 15:52 75 18 118/72 (87) 100 30 11/28/24 11:22 Room Air* 0 11/28/24 11:01 97.8 97.8 Cardiovascular: Normal S1, Normal S2 Abdominal: Soft Labs/Xrays Labs Test 11/28/24 14:25 11/28/24 14:24 11/28/24 13:58 11/28/24 11:20 Range/Units Troponin I High Sensitivity 23 </=54 ng/L Urine Color Colorless Yellow Urine Clarity Clear Clear Urine pH 7.0 5.0-9.0 Urine Specific [place] 1.009 1.001-1.035 Urine Protein 2+ H Negative Urine Ketones Negative Negative Urine Blood Trace H Negative /uL Urine Nitrite Negative Negative Urine Bilirubin Negative Negative Urine Urobilinogen Normal Negative mg/dL Urine Leukocyte Esterase Negative Negative /uL Urine RBC 1 0 - 3 /hpf Urine Microscopic WBC 1 0-3 /HPF Urine Squamous Epithelial Cells None seen <5 /hpf Urine Bacteria None seen None Seen /hpf Urine Hyaline Casts Mod 0 - 2 /lpf Urine Glucose Trace Normal mg/dL Blood Gas Specimen Type Arterial Blood Gas Sample Site Central line Blood Gas Patient Temperature 37.0 Arterial Blood Date Drawn [id number] Arterial Blood pH 7.343 L 7.350-7.450 Arterial Blood Partial Pressure CO2 37.5 35.0-48.0 mmHg Arterial Blood Partial Pressure O2 100.8 83.0-108.0 mmHg Arterial Blood HCO3 19.9 L 21.0-28.0 mmol/L Arterial Blood Oxygen Saturation 97.4 94.0-98.0 % Arterial Blood Base Excess -5.2 L -2.0-3.0 mmol/L Arterial Blood Oxyhemoglobin 95.9 94.0-98.0 % Arterial Blood Carboxyhemoglobin 0.6 0.5-1.5 % Arterial Blood Methemoglobin 0.9 0.0-1.5 % Chema Test Modified Blood Gas Total Hemoglobin 14.40 13.5-17.5 g/dL Blood Gas Set Respiration Rate 18.0 Blood Gas Modality Vent - ac FiO2 % 30.0 Blood Gas Tidal Volume 450.0 Blood Gas PEEP or CPAP 5.0 White Blood Count 10.1 4.4-10.8 10^3/uL Red Blood Count 5.33 4.5-5.90 10^6/uL Hemoglobin 14.3 13.5-17.5 g/dL Hematocrit 43.7 41.0-53.0 % Mean Corpuscular Volume 82.0 80.0-100.0 fL Mean Corpuscular Hemoglobin 26.9 L 28.0-32.0 pg Mean Corpuscular Hemoglobin Concent 32.8 32.0-36.0 g/dL Red Cell Distribution Width 19.8 H 11.8-14.3 % Platelet Count 297 140-450 10^3/uL Mean Platelet Volume 7.7 6.9-10.8 fL Neutrophils (%) (Auto) 74.1 37.0-80.0 % Lymphocytes (%) (Auto) 13.5 10.0-50.0 % Monocytes (%) (Auto) 7.1 0.0-12.0 % Eosinophils (%) (Auto) 4.2 0.0-7.0 % Basophils (%) (Auto) 1.1 0.0-2.0 % Neutrophils # (Auto) 7.5 1.6-8.6 10 ^3/uL Lymphocytes # (Auto) 1.4 0.4-5.4 10 ^3/uL Monocytes # (Auto) 0.7 0-1.3 10 ^3/uL Eosinophils # (Auto) 0.4 0-0.8 10 ^3/uL Basophils # (Auto) 0.1 0-0.2 10 ^3/uL Nucleated Red Blood Cells 0.1 % Sodium Level 147 H 136-145 mmol/L Potassium Level 4.7 3.5-5.1 mmol/L Chloride Level 111 H 98-107 mmol/L Carbon Dioxide Level 26 20-31 mmol/L Anion Gap 10 5-15 Blood Urea Nitrogen 6 L 9-23 mg/dL Creatinine 1.15 0.700-1.30 mg/dL Glomerular Filtration Rate Calc 69 >90 mL/min BUN/Creatinine Ratio 5.2 L 10.0-20.0 Serum Glucose 81 74-106 mg/dL Calcium Level 9.7 8.7-10.4 mg/dL CHEST RADIOGRAPH Indication: s/p CENTRAL LINE PLACEMENT TO LEFT NECK AND OG TUBE PLACEMEN Technique: Single frontal view of the chest was obtained COMPARISON: XY CHEST PORTABLE on DOS: 11/28/24, XY CHEST PORTABLE on DOS: 11/28/24, XY CHEST PORTABLE on DOS: 11/07/24, XY CHEST PORTABLE on DOS: 10/17/24, XY CHEST PORTABLE on DOS: 09/05/24 FINDINGS: Lines and Tubes: Endotracheal tube and enteric catheter in satisfactory position. Left central venous catheter extends into the right internal jugular v ein. Repositioning required. Lungs: Clear. Pleura: No effusion. No pneumothorax. Cardiomediastinal contours: Unremarkable. Bones: Unremarkable. IMPRESSION: Left central venous catheter extends into the right internal jugular vein. Repositioning required. EXAM: XY CHEST PORTABLE HISTORY: CENTRAL LINE VERIFICATION COMPARISON: XY CHEST PORTABLE on DOS: 11/28/24, XY CHEST PORTABLE on DOS: 11/07/24, XY CHEST PORTABLE on DOS: 10/17/24, XY CHEST PORTABLE on DOS: 09/05/24, XY CHEST PORTABLE on DOS: 08/22/24 TECHNIQUE: Portable AP views of the chest were performed. FINDINGS/IMPRESSION: 1. New left IJ central line with its tip crossing the midline and ascending into the lower portion of the right internal jugular vein. Recommend positional adjustment or replacement. 2. No definite pneumothorax, although there are some irregular linear opacities in the left upper lobe. Recommend short interval follow-up chest x-ray to re- evaluate for pneumothorax after the left IJ central line position has been adjusted. 3. Mechanical ventilation with the tip of the endotracheal tube 5.8 cm above the eugenio. Procedure: XY CHEST PORTABLE History: SOB /ETT PLCMNT Comparison: XY CHEST PORTABLE on DOS: 11/07/24, 08/01/24 Technique: Single view of the chest. Findings: Tip of the endotracheal tube 6.1 cm above the eugenio. Decreased bilateral opacities with mild residuals in the right lung base. Small right pleural effusion. The cardiomediastinal silhouette is stable. Impression: 1. Tip of the endotracheal tube 6.1 cm above the eugenio. 2. Decreased bilateral opacities with mild residual in the right lung base. SEPSIS Sepsis Screen Date sepsis recognized/suspect: Nov 28, 2024 Time Sepsis recognized/suspect: 1101 Recent Procedure: No On Antibiotic Therapy: No Respiratory Rate >20: No Heart Rate >90: No Temp<36 C (96.8 F) or >38.3 C: No SBP <90 or MAP <65 mmHG: No New Acute Mental Status Change: No Is the patient on CPAP, BIPAP,: No Physician Orders Chest Portable (11/28/24 11:04) Heplock Iv (11/28/24 11:04) Floorwalker (11/28/24 11:04) Blood Pressure (11/28/24 11:04) Pulse Oximetry (11/28/24 11:04) Electrocardigram (11/28/24 11:04) Electrocardigram (11/28/24 12:04) Electrocardigram (11/28/24 14:04) Med Neb Initial Treatment (11/28/24 11:04) Yarbrough Catheters (11/28/24 ) Ngt/Ogt (11/28/24 ) Midazolam Drip 50 Mg/50ml (Versed Drip 5 (11/28/24 12:15) Rass Sedation Scale Q1HR (11/28/24 12:14) Abg W/ Co-Ox (11/28/24 13:15) Ventilator Orders (11/28/24 12:24) Respiratory Culture W/ Gs (11/28/24 12:24) Propofol (Diprivan) (11/28/24 12:30) Fentanyl Drip 2500mcg/250mlns (11/28/24 12:30) Communication Order (11/28/24 12:25) Communication Order (11/28/24 12:27) Chest Portable (11/28/24 13:30) Chest Portable (11/28/24 15:40) Vital Signs Date Time Temp Pulse Resp B/P (MAP) Pulse Ox O2 Delivery O2 Flow Rate FiO2 11/28/24 15:52 75 18 118/72 (87) 100 30 11/28/24 15:00 123/76 11/28/24 15:00 123/76 11/28/24 14:30 88 15 127/79 (95) 100 11/28/24 14:15 91 18 126/73 (90) 99 11/28/24 14:06 97 20 124/79 (94) 100 30 11/28/24 14:00 119/77 11/28/24 14:00 119/77 11/28/24 14:00 119/77 11/28/24 14:00 95 20 119/77 (91) 100 11/28/24 13:45 97 16 121/72 (88) 99 11/28/24 13:30 101 19 110/69 (83) 100 11/28/24 13:15 104 15 112/74 (87) 99 11/28/24 13:08 111/77 11/28/24 13:00 108 26 120/75 (90) 98 11/28/24 12:54 167/116 11/28/24 12:53 167/116 11/28/24 12:45 115 27 102/71 (81) 96 11/28/24 12:32 121 24 167/116 (133) 97 30 11/28/24 12:30 120 15 110/71 (84) 96 11/28/24 12:07 140 21 167/116 (133) 99 11/28/24 11:22 16 97 Room Air* 0 21 11/28/24 11:07 87 11/28/24 11:05 87 11/28/24 11:01 97.8 88 18 134/72 97 97.8 Laboratory Tests Test 11/28/24 11:20 White Blood Count 10.1 10^3/uL (4.4-10.8) Medications Medications Dose Ordered Sig/Arnaldo Route Start Time Stop Time Status Last Admin Dose Admin Albuterol 10 mg ONCE ONCE N 11/28/24 11:15 11/28/24 11:16 DC 11/28/24 11:20 10 MG Etomidate 20 mg ONCE ONCE IV 11/28/24 12:15 11/28/24 12:16 DC 11/28/24 12:06 20 MG Fentanyl Citrate 250 ml @ 2.5 mls/hr Q24H IV 11/28/24 12:30 11/28/24 13:08 2.5 MLS/HR Ipratropium [place] 1 mg ONCE ONCE N 11/28/24 11:15 11/28/24 11:16 DC 11/28/24 11:20 1 MG Methylprednisolone Sodium Succinate 125 mg ONCE ONCE IV 11/28/24 11:15 11/28/24 11:16 DC 11/28/24 12:04 125 MG Midazolam HCl 50 ml @ 1 mls/hr Q24H IV 11/28/24 12:15 11/28/24 12:53 15 MLS/HR Propofol 100 ml @ 1.989 mls/ hr Q24H IV 11/28/24 12:30 11/28/24 12:54 3.978 MLS/HR Succinylcholine Chloride 100 mg ONCE ONCE IV 11/28/24 12:15 11/28/24 12:16 DC 11/28/24 12:07 100 MG Assessment/Plan Assessment/Plan Assessment Acute hypoxic respiratory failure requiring mechanical ventilation Acute on chronic asthma versus COPD exacerbation Hypernatremia History of partial lung lobectomy History of lung CA History of CVA History of hypertension History of TN History of PE History of tobacco use Plan Admit to ICU Mechanical ventilation Vasopressors as needed to keep maps greater than 65 Sedatives Duo nebs UA Steroids Respiratory culture ABG NG tube Yarbrough catheter Echo CT head Trend troponins Lactic Blood culture Urine culture UDS Repeat chest x-ray to ensure there is no pneumothorax NPO Home medications reconciled DVT prophylaxis-Eliquis PUD prophylaxis-PPIs Discussed plan of care with nurse Pulmonary consulted Plan discussed with: Patient Date of Service: Nov 28, 2024 Billing Provider: UZAIR SIMMONS Common Visit Codes: [id number] INP/OBS CARE (HIGH) UZAIR SIMMONS Nov 28, 2024 16:23
[2024-11-28 17:30] LABS: Lactic Acid w/Reflex 2.2 mmol/L (0.4-2.0)
[2024-11-28 17:36] LABS: Amphetamine Screen, Urine Neg (NEGATIVE); Barbiturate Scree,Urine Neg (NEGATIVE); Benzodiazephine Screen, Urine Neg (NEGATIVE); Cannabinoid Screen, Urine Neg (NEGATIVE); Cocaine Screen, Urine Neg (NEGATIVE); Opiate Scree,Urine Neg (NEGATIVE); Phencyclidine Screen, Urine Neg (NEGATIVE)
--- NOTE | 2024-11-28 18:06 | DVH ---
INDICATION: Altered mental status. TECHNIQUE: Multidetector row CT of the head was performed without administration of intravenous contr ast. Dose lowering techniques have been used including automated exposure control and adjustment of mA and /or kv according to patient size. COMPARISON: None FINDINGS: There is no evidence of acute intracranial hemorrhage or infarct. Right frontoparietal encephalomalac ia, compatible with chronic infarct. There is no mass effect or shifting of midline structures. Generalized cerebral and cerebellar atroph y with prominence of sulci and ventricles. Periventricular white matter hypodensity likely reflect sm all vessel ischemic changes. No depressed calvarial fracture. DLP is 1208.3 mGy-cm. CTDI vol is 61.3 mGy. IMPRESSION: 1. No acute intracranial abnormality. 2. Right frontoparietal encephalomalacia, compatible with chronic infarct.
[2024-11-28] MEDS: VANCOMYCIN 1GM/250ML KIT 250 ML IV ONE (18:21)
[2024-11-28 18:35] LABS: COVID19 ANTIGEN SOFIA FIA NEGATIVE (NEGATIVE)
[2024-11-28] MEDS: ALBUTEROL SULF 2.5 MG/0.5ML(0.5%) NEB SOLN NEB SCH (18:36)
[2024-11-28] MEDS: IPRATROPIUM BROM 0.5 MG/2.5ML INH SOL NEB SCH (18:36)
[2024-11-28] MEDS: NOREPINEPHRINE 8 MG/250ML KIT 250 ML IV SCH (18:36)
[2024-11-28] MEDS: NOREPINEPHRINE 8 MG/250ML KIT 250 ML IV ONE (19:04)
[2024-11-28] MEDS: SODIUM CHLORIDE 0.9% 1,850 ML IV ONE (20:00)
[2024-11-28] MEDS: APIXABAN 5 MG TAB PO SCH (22:26)
[2024-11-28] MEDS: methylPREDNISolone SOD SUCC 125 MG/2 ML VL IV SCH (22:29)
[2024-11-29] VITALS (84 sets, daily range): BP systolic 87–124; BP diastolic 52–72; PULSE 53–107; RESP 16–26; TEMP 94.6–98.2; O2SAT 96–100
[2024-11-29 06:02] LABS: Mean Corpuscular Hemoglobin 26.6 pg (28.0-32.0); Nucleated Red Blood Cells % 0.0 %
[2024-11-29 06:04] LABS: Hematocrit 42.7 % (41.0-53.0); Hemoglobin 14.0 g/dL (13.5-17.5); Mean Corpuscular Volume 80.9 fL (80.0-100.0)
[2024-11-29] MEDS: hydroCHLOROthiazide 25 MG TAB PO SCH (06:10)
[2024-11-29 06:23] LABS: Alanine Aminotransferase 27 U/L (7-40); Albumin 4.1 g/dL (3.2-4.8); Alkaline Phosphatase 99 U/L (46-116); Anion Gap 12 (5-15); BUN/Creatinine Ratio 8.7 (10.0-20.0); Blood Urea Nitrogen 9 mg/dL (9-23); Calcium 9.2 mg/dL (8.7-10.4); Carbon Dioxide 23 mmol/L (20-31); Potassium 4.7 mmol/L (3.5-5.1); Total Protein 6.5 g/dL (5.7-8.2)
[2024-11-29 06:24] LABS: Bilirubin, Total 0.4 mg/dL (0.2-1.0)
[2024-11-29 06:26] LABS: Base Excess -2.8 mmol/L (-2.0-3.0)
[2024-11-29 06:30] LABS: Chloride 110 mmol/L (98-107); Glucose 181 mg/dL (74-106); Sodium 145 mmol/L (136-145)
[2024-11-29] MEDS ORDERED: PATIENTS OWN MEDICATION (Amlodipine Besylate 1 TAB) PO SCH (10:00)
--- NOTE | 2024-11-29 10:19 | DVHPNRES ---
Progress Note Date Seen: Nov 29, 2024 Resident Creating Document: SIMA MORRISON RESDIENT Medical Necessity Reason Pt with a Central, PICC or Fol: Yes Subjective Review of Systems Brandon Gentile is a 69-year-old male with past medical history of asthma, COPD, CVA, hypertension, MD, PE, partial right lung lobectomy, and tobacco use who presents to the ED with shortness of breath. Per EMS reports patient ran out of his breathing treatments and was brought in by EMS. Per reports from nurse patient was in the hallway was extremely short of breath then required intubation by the ED physician due to respiratory failure. Patient intubated at bedside unable to obtain further history. 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: CVA Past Medical History Lung cancer Objective vital signs Vital Sign Date Time Temp Pulse Resp B/P (MAP) Pulse Ox O2 Delivery O2 Flow Rate FiO2 11/29/24 09:45 112/64 11/29/24 09:09 58 18 98 30 11/29/24 06:38 98.0 98.0 11/29/24 06:00 Mechanical Ventilator+ 11/28/24 11:22 0 Total Intake and Output 11/28/24 11/28/24 11/29/24 15:00 23:00 07:00 Intake Total 104.324 ml Output Total 680 ml 1000 ml Balance -680 ml -895.676 ml medications Current Medications Medications Dose Ordered Sig/Arnaldo Route Start Time Stop Time Status Last Admin Dose Admin Midazolam HCl 50 ml @ 1 mls/hr Q24H IV 11/28/24 12:15 11/29/24 09:01 15 MLS/HR Propofol 100 ml @ 1.989 mls/ hr Q24H IV 11/28/24 12:30 11/29/24 06:10 15.912 MLS/HR Fentanyl Citrate 250 ml @ 2.5 mls/hr Q24H IV 11/28/24 12:30 11/29/24 09:45 10 MLS/HR Ondansetron HCl 4 mg Q4HP PRN IV 11/28/24 16:15 Acetaminophen 650 mg Q6HP PRN PO 11/28/24 16:15 Nitroglycerin 0.4 mg Q5MINP PRN SL 11/28/24 16:15 Morphine Sulfate 2 mg Q30M PRN IV 11/28/24 16:15 Albuterol 2.5 mg Q4HR NEB 11/28/24 18:00 11/29/24 09:09 2.5 MG Ipratropium [place] 0.5 mg Q4HR NEB 11/28/24 18:00 11/29/24 09:09 0.5 MG Methylprednisolone Sodium Succinate 80 mg Q8HR IV 11/28/24 22:00 11/29/24 06:09 80 MG Apixaban 5 mg BID PO 11/28/24 22:00 11/28/24 22:26 5 MG Aspirin 81 mg DAILY PO 11/29/24 10:00 Hydrochlorothiazide 25 mg QAM PO 11/29/24 07:00 11/29/24 06:10 25 MG Patient Own Medication 1 tab DAILY PO 11/29/24 10:00 UNV Amlodipine Besylate 10 mg DAILY PO 11/29/24 10:00 Norepinephrine Bitartrate 250 ml @ 3.75 mls/hr Q24H IV 11/28/24 18:45 11/28/24 18:36 3.75 MLS/HR Examination General: RASS 0, afebrile, mucosae are moist Cardiovascular: Normal S1 and S2. No murmurs, gallops or rubs Respiratory: Mechanically assisted ventilation, equal bilateral airway entree. Clear lung sounds on auscultation Mechanical ventilation setting: GI: Soft, nontender, no organomegaly, normal bowel sounds : Yarbrough catheter n place, clear yellow urine in collection bag MSK/skin: Mobilization of limbs cannot be evaluated. Skin is dry and warm. IV accesses: Neurological: Orientation cannot be assessed. No apparent motor no sensitive deficits. Pupils are isocoric and reactive laboratory and microbiology Laboratory Tests 11/29/24 04:52 Test 11/29/24 04:52 Range/Units Serum Glucose 181 #H 74-106 mg/dL Problem List/Assessment/Plan Problem List/Assessment/Plan NEURO: CARDIOVASCULAR: RESPIRATORY: GENITOURINARY/FLUID: Yarbrough catheter in place GASTROINTESTINAL/NUTRITION: INFECTIOUS DISEASE: HEMATOLOGY: ENDOCRINE: METABOLIC: MSK/SKIN: DIET: DVT prophylax: GI prophylaxis: Bowel regimen: LINES/DEVICES ETT: Intubated on IV access: Drips: Yarbrough catheter: Placed on Disposition: Continue ICU status Family: Patients status updated ... Critical care time: Spent > 83 min, spent in direct critical care, including evaluation, management, review of labs/imaging, and multidisciplinary/family discussions, (excluding any procedures). Case discussed with SIMA Ribera Nov 29, 2024 10:19
[2024-11-29] MEDS: ASPirin-EC 81 mg tab PO SCH (10:48)
[2024-11-29] MEDS ORDERED: SODIUM CHLORIDE 0.9% 1,000 ML IV ONE (11:00)
[2024-11-29] MEDS: AZITHROMYCIN 500MG/ 250ML 250 ML IV ONE (11:39)
[2024-11-29] MEDS: SODIUM CHLORIDE 0.9% 250 ML IV SCH (11:45)
--- NOTE | 2024-11-29 11:57 | DVHPNRES ---
Progress Note Date Seen: Nov 29, 2024 Resident Creating Document: SIMA MORRISON RESDIENT Medical Necessity Reason Pt with a Central, PICC or Fol: Yes Subjective Review of Systems This is a 69-year-old gentleman with past medical history of COPD (on home oxygen 2 L), CVA, hypertension, pulmonary emboli, and mild cognitive dysfunction, lung cancer (status post lobectomy), brought in by EMS due to shortness of breaths since 1 day. Upon ER arrival, he was in severe shortness of breath, intubated and put on mechanical ventilation. PMHx: COPD (on home oxygen 2 L), CVA, hypertension, pulmonary emboli, and mild cognitive dysfunction, lung cancer (status post lobectomy) PSHx: Right inguinal hernia, and lung cancer Social history: Ex-smoker, lives with the brother [id number] at home, use can for mobility, brother helps for taking medicine Home medication: Amlodipine, hydrochlorothiazide, Eliquis, memantine, aspirin, nebulizer and inhaler Allergic history: No known allergy Patient seen and examined at the bedside. Patient is sedated and on mechanical ventilation. Objective vital signs Vital Sign Date Time Temp Pulse Resp B/P (MAP) Pulse Ox O2 Delivery O2 Flow Rate FiO2 11/29/24 09:45 112/64 11/29/24 09:09 58 18 98 30 11/29/24 06:38 98.0 98.0 11/29/24 06:00 Mechanical Ventilator+ 11/28/24 11:22 0 Total Intake and Output 11/28/24 11/28/24 11/29/24 15:00 23:00 07:00 Intake Total 104.324 ml Output Total 680 ml 1000 ml Balance -680 ml -895.676 ml medications Current Medications Medications Dose Ordered Sig/Arnaldo Route Start Time Stop Time Status Last Admin Dose Admin Midazolam HCl 50 ml @ 1 mls/hr Q24H IV 11/28/24 12:15 11/29/24 09:01 15 MLS/HR Propofol 100 ml @ 1.989 mls/ hr Q24H IV 11/28/24 12:30 11/29/24 06:10 15.912 MLS/HR Fentanyl Citrate 250 ml @ 2.5 mls/hr Q24H IV 11/28/24 12:30 11/29/24 09:45 10 MLS/HR Ondansetron HCl 4 mg Q4HP PRN IV 11/28/24 16:15 Acetaminophen 650 mg Q6HP PRN PO 11/28/24 16:15 Nitroglycerin 0.4 mg Q5MINP PRN SL 11/28/24 16:15 Morphine Sulfate 2 mg Q30M PRN IV 11/28/24 16:15 Albuterol 2.5 mg Q4HR NEB 11/28/24 18:00 11/29/24 09:09 2.5 MG Ipratropium [place] 0.5 mg Q4HR NEB 11/28/24 18:00 11/29/24 09:09 0.5 MG Methylprednisolone Sodium Succinate 80 mg Q8HR IV 11/28/24 22:00 11/29/24 06:09 80 MG Apixaban 5 mg BID PO 11/28/24 22:00 11/28/24 22:26 5 MG Aspirin 81 mg DAILY PO 11/29/24 10:00 Hydrochlorothiazide 25 mg QAM PO 11/29/24 07:00 11/29/24 06:10 25 MG Patient Own Medication 1 tab DAILY PO 11/29/24 10:00 UNV Amlodipine Besylate 10 mg DAILY PO 11/29/24 10:00 Norepinephrine Bitartrate 250 ml @ 3.75 mls/hr Q24H IV 11/28/24 18:45 11/28/24 18:36 3.75 MLS/HR Examination General: RASS -2, afebrile, mucosae are moist Cardiovascular: Normal S1 and S2. No murmurs, gallops or rubs Respiratory: Mechanically assisted ventilation, equal bilateral airway entree. Clear lung sounds on auscultation Mechanical ventilation setting: GI: Soft, nontender, no organomegaly, normal bowel sounds, right inguinal hernia extending to the scrotum : Yarbrough catheter n place, clear yellow urine in collection bag MSK/skin: Mobilization of limbs cannot be evaluated. Skin is dry and warm. IV accesses: Right IJ Neurological: Orientation cannot be assessed. No apparent motor no sensitive deficits. Pupils are isocoric and reactive laboratory and microbiology Laboratory Tests 11/29/24 04:52 Test 11/29/24 04:52 Range/Units Serum Glucose 181 #H 74-106 mg/dL Labs and/or images reviewed: Labs reviewed by me, Image(s) reviewed by me Problem List/Assessment/Plan Problem List/Assessment/Plan This is a 69-year-old gentleman with past medical history of COPD (on home oxygen 2 L), CVA, hypertension, pulmonary emboli, and mild cognitive dysfunction, lung cancer (status post lobectomy), brought in by EMS due to shortness of breaths, sedated and intubated on 11/28. NEURO: Acute metabolic encephalopathy, likely due to respiratory failure Mild cognitive dysfunction History of CVA * Head CT / shows no significant new intracranial abnormalities * Plan: Fentanyl CARDIOVASCULAR: Possible septic shock Hypertension Dyslipidemia History of coronary artery disease * Plan: Levophed, IV fluid RESPIRATORY: Acute on chronic hypoxic respiratory failure COPD exacerbation Pneumonia, likely due to Gram-positive/Gram-negative bacteria/viral Lung cancer, status post lobectomy History of pulmonary emboli * Plan: Mechanical ventilation, breathing treatment and IV antibiotic GENITOURINARY/FLUID: * Yarbrough catheter in place GASTROINTESTINAL/NUTRITION: Inguinal hernia * Plan: Follow up on outpatient basis INFECTIOUS DISEASE: Septic shock, likely due to sepsis Sepsis, likely due to pneumonia Pneumonia * Plan: Azithromycin (11/29), Zosyn (11/29) METABOLIC: Mild hyponatremia DIET: NPO DVT prophylax: Lovenox GI prophylaxis: Protonix Bowel regimen: Lactic LINES/DEVICES ETT: Intubated on 11/28 IV access: Right Femoral 11/28 Drips: Levophed Yarbrough catheter: Placed on 11/28 Disposition: Continue ICU status Family: Patients status updated with [id number] through the phone Critical care time: Spent > 83 min, spent in direct critical care, including evaluation, management, review of labs/imaging, and multidisciplinary/family discussions, (excluding any procedures). Case discussed with Dr. Calloway Plan discussed with: Other Date of Service: Nov 29, 2024 Billing Provider: BETTE CALLOWAY MD Common Visit Codes: [id number] CARE 30-74 MIN, [id number] CARE-EACH +30MIN SIMA MORRISON RESDIENT Nov 29, 2024 11:57 BETTE CALLOWAY MD Nov 30, 2024 11:03
--- NOTE | 2024-11-29 13:07 | DVH ---
EXAM: XY CHEST XRAY 1 VIEW Indication: Pain Pneumonia Technique: Single frontal view of the chest was obtained Comparison: XY CHEST PORTABLE on DOS: 11/28/24, XY CHEST PORTABLE on DOS: 11/28/24, XY CHEST PORTABLE on DOS: 11/28/24, XY CHEST PORTABLE on DOS: 11/07/24, XY CHEST PORTABLE on DOS: 10/17/24, XY CHEST PORT ABLE on DOS: 11/28/24 FINDINGS: Lines and Tubes: Endotracheal tube and enteric catheter in satisfactory position. Interval removal of the left central venous catheter. Lungs: Small right pleural effusion and right basilar opacity. Trace left pleural effusion. Cardiomediastinal contours: Unremarkable. Bones: Unremarkable. IMPRESSION: Small right pleural effusion and right basilar opacity. Trace left pleural effusion. Interval removal of left central venous catheter.
[2024-11-29] MEDS: methylPREDNISolone SOD SUCC 125 MG/2 ML VL IV SCH (14:35)
[2024-11-29] MEDS: DEXMEDETOMIDINE HCL IN D5W 100 ML IV SCH (16:30)
[2024-11-29] MEDS: PANTOPRAZOLE 40 MG/10 ML VIAL INJ IV ONE (17:10)
[2024-11-29] MEDS: PIPERACILLIN-TAZOB 3.375GM 100 ML IV ONE (17:11)
[2024-11-29] MEDS: ENOXAPARIN SOD 60 MG/0.6 ML SYRINGE SC SCH (21:25)
[2024-11-29] MEDS: PIPERACILLIN-TAZOB 3.375GM 100 ML IV SCH (21:25)
[2024-11-30] VITALS (71 sets, daily range): BP systolic 84–150; BP diastolic 50–129; PULSE 63–110; RESP 10–22; TEMP 97.6–99.3; O2SAT 5–100
[2024-11-30 03:24] LABS: Hemoglobin 13.3 g/dL (13.5-17.5); Mean Corpuscular Volume 80.1 fL (80.0-100.0); Nucleated Red Blood Cells % 0.0 %
[2024-11-30 03:45] LABS: Alanine Aminotransferase 22 U/L (7-40); Albumin 3.7 g/dL (3.2-4.8); Alkaline Phosphatase 87 U/L (46-116); Anion Gap 12 (5-15); BUN/Creatinine Ratio 8.5 (10.0-20.0); Bilirubin, Total 0.4 mg/dL (0.2-1.0); Blood Urea Nitrogen 9 mg/dL (9-23); Calcium 8.9 mg/dL (8.7-10.4); Carbon Dioxide 25 mmol/L (20-31); Hematocrit 41.3 % (41.0-53.0); Mean Corpuscular Hemoglobin 25.9 pg (28.0-32.0); Potassium 3.7 mmol/L (3.5-5.1); Sodium 144 mmol/L (136-145); Total Protein 6.0 g/dL (5.7-8.2)
[2024-11-30 03:58] LABS: Chloride 107 mmol/L (98-107)
[2024-11-30 03:59] LABS: Glucose 171 mg/dL (74-106)
--- NOTE | 2024-11-30 06:00 | DVH ---
CHEST RADIOGRAPH Indication: RN Technique: Single frontal view of the chest was obtained COMPARISON: XY CHEST XRAY 1 VIEW on DOS: 11/29/24, XY CHEST PORTABLE on DOS: 11/28/24, XY CHEST SUSANNAH BLE on DOS: 11/28/24, XY CHEST PORTABLE on DOS: 11/28/24, XY CHEST PORTABLE on DOS: 11/07/24 FINDINGS: Lines and Tubes: Endotracheal tube in satisfactory position. Lungs: Pulmonary vascular congestion. Pleura: No effusion. No pneumothorax. Cardiomediastinal contours: Unremarkable. Bones: Unremarkable. IMPRESSION: Endotracheal tube in satisfactory position.
[2024-11-30] MEDS: PANTOPRAZOLE 40 MG/10 ML VIAL INJ IV SCH (07:36)
[2024-11-30] MEDS: AZITHROMYCIN 500MG/ 250ML 250 ML IV SCH (07:37)
[2024-11-30 12:33] LABS: Base Excess -1.6 mmol/L (-2.0-3.0)
--- NOTE | 2024-11-30 18:09 | DVHPNRES ---
Progress Note Date Seen: Nov 30, 2024 Resident Creating Document: SIMA MORRISON RESDIENT Medical Necessity Reason Pt with a Central, PICC or Fol: Yes Subjective Review of Systems This is a 69-year-old gentleman with past medical history of COPD (on home oxygen 2 L), CVA, hypertension, pulmonary emboli, and mild cognitive dysfunction, lung cancer (status post lobectomy), brought in by EMS due to shortness of breaths since 1 day. Upon ER arrival, he was in severe shortness of breath, intubated and put on mechanical ventilation. PMHx: COPD (on home oxygen 2 L), CVA, hypertension, pulmonary emboli, and mild cognitive dysfunction, lung cancer (status post lobectomy) PSHx: Right inguinal hernia, and lung cancer Social history: Ex-smoker, lives with the brother [id number] at home, use can for mobility, brother helps for taking medicine Home medication: Amlodipine, hydrochlorothiazide, Eliquis, memantine, aspirin, nebulizer and inhaler Allergic history: No known allergy Patient seen and examined at the bedside. Patient is sedated and on mechanical ventilation. Objective vital signs Vital Sign Date Time Temp Pulse Resp B/P (MAP) Pulse Ox O2 Delivery O2 Flow Rate FiO2 11/30/24 18:02 93 16 100 11/30/24 18:00 118/55 (76) 11/30/24 17:30 Nasal Cannula* 1 24 11/30/24 16:00 97.8 97.8 Total Intake and Output 11/29/24 11/29/24 11/30/24 15:00 23:00 07:00 Intake Total 1001.25 ml 134.448 ml 92.266 ml Output Total 750 ml 250 ml Balance 1001.25 ml -615.552 ml -157.734 ml medications Current Medications Medications Dose Ordered Sig/Arnaldo Route Start Time Stop Time Status Last Admin Dose Admin Ondansetron HCl 4 mg Q4HP PRN IV 11/28/24 16:15 Acetaminophen 650 mg Q6HP PRN PO 11/28/24 16:15 Albuterol 2.5 mg Q4HR NEB 11/28/24 18:00 11/30/24 18:02 Ipratropium [place] 0.5 mg Q4HR NEB 11/28/24 18:00 11/30/24 18:02 Aspirin 81 mg DAILY PO 11/29/24 10:00 11/29/24 10:48 Patient Own Medication 1 tab DAILY PO 11/29/24 10:00 UNV Azithromycin 250 ml @ 125 mls/hr DAILY IV 11/30/24 10:00 11/30/24 07:37 Piperacillin Sod/ Tazobactam Sod 100 ml @ 25 mls/hr Q8HR IV 11/29/24 22:00 11/30/24 13:48 Methylprednisolone Sodium Succinate 40 mg BID IV 11/30/24 22:00 UNV Amlodipine Besylate 5 mg DAILY PO 12/01/24 10:00 Methylprednisolone Sodium Succinate 40 mg BID IV 11/30/24 22:00 Examination General: RASS -2, afebrile, mucosae are moist Cardiovascular: Normal S1 and S2. No murmurs, gallops or rubs Respiratory: Mechanically assisted ventilation, equal bilateral airway entree. Clear lung sounds on auscultation Mechanical ventilation setting: GI: Soft, nontender, no organomegaly, normal bowel sounds, right inguinal hernia extending to the scrotum : Yarbrough catheter n place, clear yellow urine in collection bag MSK/skin: Mobilization of limbs cannot be evaluated. Skin is dry and warm. IV accesses: Right IJ Neurological: Orientation cannot be assessed. No apparent motor no sensitive deficits. Pupils are isocoric and reactive laboratory and microbiology Laboratory Tests 11/30/24 02:41 Test 11/30/24 02:41 Range/Units Serum Glucose 171 H 74-106 mg/dL Microbiology Date/Time Source Procedure Growth Status 11/29/24 06:50 Nose MRSA Screen - Final Complete 11/28/24 16:45 Blood Blood Culture - Preliminary NO GROWTH AFTER 48 HOURS OF INCUBATION. Resulted 11/28/24 14:24 Voided Urine Urine Culture - Preliminary Resulted 11/28/24 12:43 Sputum Gram Stain - Final Resulted 11/28/24 12:43 Sputum Respiratory Culture - Preliminary Resulted Labs and/or images reviewed: Labs reviewed by me, Image(s) reviewed by me Problem List/Assessment/Plan Problem List/Assessment/Plan This is a 69-year-old gentleman with past medical history of COPD (on home oxygen 2 L), CVA, hypertension, pulmonary emboli, and mild cognitive dysfunction, lung cancer (status post lobectomy), brought in by EMS due to shortness of breaths, sedated and intubated on 11/28. NEURO: Acute metabolic encephalopathy, likely due to respiratory failure Mild cognitive dysfunction History of CVA * Head CT shows no significant new intracranial abnormalities CARDIOVASCULAR: Possible septic shock Hypertension Dyslipidemia History of coronary artery disease RESPIRATORY: Acute on chronic hypoxic respiratory failure COPD exacerbation Pneumonia, likely due to Gram-positive/Gram-negative bacteria/viral Lung cancer, status post lobectomy History of pulmonary emboli * Plan: on [place] oxygen GENITOURINARY/FLUID: * Yarbrough catheter in place GASTROINTESTINAL/NUTRITION: Inguinal hernia * Plan: Follow up on outpatient basis INFECTIOUS DISEASE: Septic shock, likely due to sepsis Sepsis, likely due to pneumonia Pneumonia * Plan: Azithromycin (11/29), Zosyn (11/29) METABOLIC: Mild hyponatremia DIET: NPO DVT prophylax: Eliques GI prophylaxis: Protonix Bowel regimen: Lactic LINES/DEVICES ETT: Intubated on 11/28, extubated on 11/30 IV access: Right Femoral 11/28 Drips: Levophed Yarbrough catheter: Placed on 11/28 Disposition: Continue ICU status Family: Patients status updated with [id number] through the phone Critical care time: Spent > 103 min, spent in direct critical care, including evaluation, management, review of labs/imaging, and multidisciplinary/family discussions, including CPAP trial and extubation, (excluding any procedures). Case discussed with Dr. Calloway Plan discussed with: Patient, Other (RN) My Orders My Orders Orders - SIMA MORRISON RESDIMIRLANDE Procedure Category Date Status Time Extubate LINDSAY 11/30/24 In Process 08:20 * Swallow Request ST 11/30/24 Transmitted 09:23 Pt Request For Service PT 11/30/24 Logged 09:23 Comprehensive LAB 12/01/24 Verified Metabolic Panel 04:00 Complete Blood Count LAB 12/01/24 Verified 04:00 Chest Xray 1 View XY 12/01/24 Logged 04:00 Amlodipine Tablet PHA 12/01/24 In Process (Norvasc Tablet) 10:00 Methylprednisolone PHA 11/30/24 In Process Sod Succ (Solu Medrol 22:00 Mechanical Soft Diet DIET 11/30/24 Transmitted Dinner Transfer Orders XFER 11/30/24 Transmitted 17:57 Dietary Evaluation Review Comments: Nutrition Recommendation: 1) EN Jevity 1.2 Mika @ 50ml/hr x 24hr(goal). Water flush 120ml Q6H if allowed, adjust PRN. TF at goal volume provides 1440 kcal (100%), 67gm protein (94%), and 1448 ml free water (including flush). 2) Consider TPN/PN if NPO>7 days 3) Advance diet as medically feasible 4) Monitor NPO status, lab values, weight trend, and I/O Expected Outcomes/Goals: Intake to meet >75% estimated needs Fu 2-3 days Date of Service: Nov 30, 2024 Billing Provider: BETTE CALLOWAY MD Common Visit Codes: 96604-[id number] CARE 30-74 MIN, [id number] CARE-EACH +30MIN SIMA MORRISON Nov 30, 2024 18:09 BETTE CALLOWAY MD Dec 02, 2024 11:13
[2024-11-30] MEDS: methylPREDNISolone SOD SUCC 40 MG/ML VL IV SCH (21:11)
[2024-11-30] MEDS ORDERED: methylPREDNISolone SOD SUCC 125 MG/2 ML VL IV SCH (22:00)
[2024-12-01] VITALS (14 sets, daily range): BP systolic 123–169; BP diastolic 70–111; PULSE 81–106; RESP 15–20; TEMP 97.7–98.3; O2SAT 95–100
--- NOTE | 2024-12-01 07:05 | DVH ---
CHEST RADIOGRAPH Indication: Portable Technique: Single frontal view of the chest was obtained Comparison: XY CHEST XRAY 1 VIEW on DOS: 11/30/24 FINDINGS: Lines and Tubes: Extubation since prior study. Lungs: No focal consolidation. Pleura: Small right pleural effusion. There is a right apical density. Cardiomediastinal contours: Unremarkable Bones: No acute osseous abnormality. IMPRESSION: 1. Small right pleural effusion.
[2024-12-01 07:33] LABS: Hematocrit 39.8 % (41.0-53.0); Hemoglobin 12.9 g/dL (13.5-17.5); Mean Corpuscular Hemoglobin 26.5 pg (28.0-32.0); Mean Corpuscular Volume 81.7 fL (80.0-100.0); Nucleated Red Blood Cells % 0.0 %
[2024-12-01 07:46] LABS: Alanine Aminotransferase 28 U/L (7-40); Albumin 3.8 g/dL (3.2-4.8); Alkaline Phosphatase 96 U/L (46-116); Anion Gap 11 (5-15); BUN/Creatinine Ratio 14.4 (10.0-20.0); Bilirubin, Total 0.3 mg/dL (0.2-1.0); Blood Urea Nitrogen 16 mg/dL (9-23); Calcium 9.1 mg/dL (8.7-10.4); Carbon Dioxide 26 mmol/L (20-31); Potassium 4.9 mmol/L (3.5-5.1); Total Protein 6.0 g/dL (5.7-8.2)
[2024-12-01 07:48] LABS: Chloride 108 mmol/L (98-107); Glucose 139 mg/dL (74-106); Sodium 145 mmol/L (136-145)
[2024-12-01] MEDS ORDERED: AZIT500T66 PO (13:05)
[2024-12-01] MEDS ORDERED: PRED30TA4 PO (13:07)
[2024-12-01] MEDS: ACETAMINOPHEN 325 MG TAB PO PRN (13:08)
--- NOTE | 2024-12-01 13:54 | DVHDSRES ---
Discharge Summary Date of Admission Resident Creating Document: SIMA MORRISON Nov 28, 2024 at 16:13 Date of Discharge: Dec 01, 2024 Labs/Diagnostic Data: Laboratory Results Test 12/01/24 05:01 11/30/24 08:14 11/29/24 06:20 11/28/24 18:56 White Blood Count 20.4 10^3/uL (4.4-10.8) Red Blood Count 4.88 10^6/uL (4.5-5.90) Hemoglobin 12.9 g/dL (13.5-17.5) Hematocrit 39.8 % (41.0-53.0) Mean Corpuscular Volume 81.7 fL (80.0-100.0) Mean Corpuscular Hemoglobin 26.5 pg (28.0-32.0) Mean Corpuscular Hemoglobin Concent 32.4 g/dL (32.0-36.0) Red Cell Distribution Width 19.8 % (11.8-14.3) Platelet Count 250 10^3/uL (140-450) Mean Platelet Volume 8.1 fL (6.9-10.8) Neutrophils (%) (Auto) 94.3 % (37.0-80.0) Lymphocytes (%) (Auto) 2.0 % (10.0-50.0) Monocytes (%) (Auto) 3.6 % (0.0-12.0) Eosinophils (%) (Auto) 0.0 % (0.0-7.0) Basophils (%) (Auto) 0.1 % (0.0-2.0) Neutrophils # (Auto) 19.3 10 ^3/uL (1.6-8.6) Lymphocytes # (Auto) 0.4 10 ^3/uL (0.4-5.4) Monocytes # (Auto) 0.7 10 ^3/uL (0-1.3) Eosinophils # (Auto) 0 10 ^3/uL (0-0.8) Basophils # (Auto) 0 10 ^3/uL (0-0.2) Nucleated Red Blood Cells 0.0 % Sodium Level 145 mmol/L (136-145) Potassium Level 4.9 mmol/L (3.5-5.1) Chloride Level 108 mmol/L (98-107) Carbon Dioxide Level 26 mmol/L (20-31) Anion Gap 11 (5-15) Blood Urea Nitrogen 16 mg/dL (9-23) Creatinine 1.11 mg/dL (0.700-1.30) Glomerular Filtration Rate Calc 72 mL/min (>90) BUN/Creatinine Ratio 14.4 (10.0-20.0) Serum Glucose 139 mg/dL (74-106) Calcium Level 9.1 mg/dL (8.7-10.4) Total Bilirubin 0.3 mg/dL (0.2-1.0) Aspartate Amino Transferase (AST) 38 U/L (13-40) Alanine Aminotransferase (ALT) 28 U/L (7-40) Alkaline Phosphatase 96 U/L (46-116) Total Protein 6.0 g/dL (5.7-8.2) Albumin 3.8 g/dL (3.2-4.8) Blood Gas Specimen Type Arterial Blood Gas Sample Site Right radial Blood Gas Patient Temperature 37.0 Arterial Blood Date Drawn [id number] Arterial Blood pH 7.418 (7.350-7.450) Arterial Blood Partial Pressure CO2 35.4 mmHg (35.0-48.0) Arterial Blood Partial Pressure O2 95.7 mmHg (83.0-108.0) Arterial Blood HCO3 22.3 mmol/L (21.0-28.0) Arterial Blood Oxygen Saturation 97.3 % (94.0-98.0) Arterial Blood Base Excess -1.6 mmol/L (-2.0-3.0) Arterial Blood Oxyhemoglobin 96.5 % (94.0-98.0) Arterial Blood Carboxyhemoglobin 0.3 % (0.5-1.5) Arterial Blood Methemoglobin 0.5 % (0.0-1.5) Chema Test Modified Blood Gas Total Hemoglobin 14.40 g/dL (13.5-17.5) Blood Gas Modality Vent - cpap Blood Gas Spontaneous Rate 14 FiO2 % 30.0 Blood Gas Pressure Support 8 Blood Gas PEEP or CPAP 5.0 Blood Gas Set Respiration Rate 18.0 Blood Gas Tidal Volume 450.0 Lactic Acid Level 1.4 mmol/L (0.4-2.0) Test 11/28/24 16:44 11/28/24 14:25 11/28/24 14:24 11/28/24 11:20 Influenza Type A Antigen Negative (Negative) Influenza Type B Antigen Negative (Negative) SARS-CoV-2 Antigen (Rapid) Negative (NEGATIVE) Troponin I High Sensitivity 23 ng/L (</=54) C-Reactive Protein High Sensitivity 0.14 mg/dL (<1.0) Urine Color Colorless (Yellow) Urine Clarity Clear (Clear) Urine pH 7.0 (5.0-9.0) Urine Specific [place] 1.009 (1.001-1.035) Urine Protein 2+ (Negative) Urine Ketones Negative (Negative) Urine Blood Trace /uL (Negative) Urine Nitrite Negative (Negative) Urine Bilirubin Negative (Negative) Urine Urobilinogen Normal mg/dL (Negative) Urine Leukocyte Esterase Negative /uL (Negative) Urine RBC 1 /hpf (0 - 3) Urine Microscopic WBC 1 /HPF (0-3) Urine Squamous Epithelial Cells None seen /hpf (<5) Urine Bacteria None seen /hpf (None Seen) Urine Hyaline Casts Mod /lpf (0 - 2) Urine Glucose Trace mg/dL (Normal) Urine Opiates Screen Neg (NEGATIVE) Urine Fentanyl Screen Neg (NEGATIVE) Urine Barbiturates Screen Neg (NEGATIVE) Urine Phencyclidine Screen Neg (NEGATIVE) Urine Amphetamines Screen Neg (NEGATIVE) Urine Benzodiazepines Screen Neg (NEGATIVE) Urine Cocaine Screen Neg (NEGATIVE) Urine Cannabinoids Screen Neg (NEGATIVE) B-Type Natriuretic Peptide 28.73 pg/mL (0-100) Other Laboratory Tests 12/01/24 05:01 Brief Hx & Hospital Course: HISTORY OF PRESENT ILLNESS: This is a 69-year-old gentleman with past medical history of COPD (on home oxygen 2 L), CVA, hypertension, pulmonary emboli, and mild cognitive dysfunction, lung cancer (status post lobectomy), brought in by EMS due to shortness of breaths since 1 day. Upon ER arrival, he was in severe shortness of breath, intubated and put on mechanical ventilation. PMHx: COPD (on home oxygen 2 L), CVA, hypertension, pulmonary emboli, and mild cognitive dysfunction, lung cancer (status post lobectomy) PSHx: Right inguinal hernia, and lung cancer Social history: Ex-smoker, lives with the brother [id number] at home, use can for mobility, brother helps for taking medicine Home medication: Amlodipine, hydrochlorothiazide, Eliquis, memantine, aspirin, nebulizer and inhaler Allergic history: No known allergy HOSPITAL COURSE: Patient was admitted at the line of COPD exacerbation leading to acute on chronic hypoxic respiratory failure. Due to severe respiratory distress, the patient was intubated. The patient was started on empiric antibiotic of Zosyn and azithromycin, IV fluid, steroid and breathing treatment. Patient was intubated for 2 days. COVID-19 and influenza were negative. Blood/respiratory and urine culture were negative. Today, on 12/04, the patient was feeling better, had no active complaint, discharge plan discussed with the patient at the patient discharged home. Patient was prescribed azithromycin 500 mg for 5 days and prednisone 40 mg for 5 days, recommended to continue home meds and follow up with the PCP and pulmonology on outpatient basis. FINAL DIAGNOSIS: Acute metabolic encephalopathy, likely due to respiratory failure Possible septic shock Hypertension Dyslipidemia History of coronary artery disease Acute on chronic hypoxic respiratory failure COPD exacerbation Pneumonia, likely due to Gram-positive/Gram-negative bacteria/viral Lung cancer, status post lobectomy History of pulmonary emboli Inguinal hernia Septic shock, likely due to sepsis Sepsis, likely due to pneumonia Pneumonia Mild hyponatremia Mild cognitive dysfunction History of CVA Condition at Discharge: Good Final Diagnosis/Problems List COPD exacerbation Discharge Disposition: Home Discharge Instruct/Medications Diet: Cardiac 2g Na,low cholest Activity: No Restrictions, As Tolerated Follow Up/Referral: Follow up with the PCP within 1 week of the discharge. Follow up with the discharge Clinic within 1 week of discharge. Medications: Tablet Azithromycin 500mg daily for 5 days Prednisone 40 mg daily for 5 days Continue home meds Scheduled Albuterol Sulfate (Albuterol Sulfate Hfa), 2 PUFF INH Q6HR Amlodipine Besylate (Amlodipine Besylate), 1 TAB PO DAILY Apixaban Base (Eliquis), 5 MG PO BID Aspirin (Aspirin Low Dose), 1 TAB PO DAILY, (Reported) Azithromycin (Zithromax Tablet), 250 MG PO BID Azithromycin (Azithromycin), 500 MG PO DAILY Hctz (Hydrochlorothiazide), 1 TAB PO QAM, (Reported) Memantine Hydrochloride (Memantine HCl), 1 TAB PO BID, (Reported) Prednisolone Sodium Phosphate (Prednisolone Sodium Phosp), 40 MG PO DAILY Prednisone (Prednisone), 20 MG PO DAILY Prednisone (Prednisone), 40 MG PO DAILY Umeclidinium-Vilanterol (Anoro Ellipta 62.5-25 Mcg/INH), 1 AER IN DAILY Scheduled PRN Albuterol Sulfate (Ventolin Mdi), 90 MCG IN QID PRN Albuterol Sulfate (Ventolin Mdi), 90 MCG IN QID PRN Ipratropium-Albuterol (Ipratropium [place]/Albut), 2 PUFF INH PRN PRN for SHORTNESS OF BREATH Discharge Statement: "Patient was advised to return to the ER or call 911 if any headaches, dizziness, shortness of breath, chest pain, abdominal pain, bleeding, fevers, or worsening of medical condition. Patient was counseled about treatment plan, medications, possible side effects, patientverbalized understanding. All questions were answered to the best of my ability. This discharge took greater then 30 minutes in planning, reviewing documentation, counseling the patient, and discussing with other team members." ASSESSMENT ASSESSMENT Assessment COPD exacerbation SIMA MORRISON Dec 01, 2024 13:54
== END 2024-12-01 15:48 | disposition home or self-care (01) | DRG 871 ==
LOC: ER 10:59 → EDBD 10:59 → OVERFLOW 16:13 → ICU WEST 11-29 05:25 → TELE-WESTW 11-30 23:20 → WEST WING 11-30 23:40
PROVIDERS: ADMIT Internal Medicine Pulmonary Disease; ATTEND Internal Medicine Pulmonary Disease
PROC: 0BH17EZ Insertion of Endotracheal Airway into Trachea, Via Natural or Artificial Opening (ICD-10-PCS; principal; 2024-11-28)
PROC: 5A1945Z Respiratory Ventilation, 24-96 Consecutive Hours (ICD-10-PCS; 2024-11-28)
PROC: 05HN33Z Insertion of Infusion Device into Left Internal Jugular Vein, Percutaneous Approach (ICD-10-PCS; 2024-11-28)
DX: A41.59 Other Gram-negative sepsis (principal); G93.41 Metabolic encephalopathy; J96.01 Acute respiratory failure with hypoxia; R65.21 Severe sepsis with septic shock; J15.69 Pneumonia due to other Gram-negative bacteria; J15.9 Unspecified bacterial pneumonia; J96.21 Acute and chronic respiratory failure with hypoxia; J44.1 Chronic obstructive pulmonary disease with (acute) exacerbation; E87.0 Hyperosmolality and hypernatremia; E87.1 Hypo-osmolality and hyponatremia; J44.0 Chronic obstructive pulmonary disease with (acute) lower respiratory infection; E78.5 Hyperlipidemia, unspecified; K40.90 Unilateral inguinal hernia, without obstruction or gangrene, not specified as recurrent; I10 Essential (primary) hypertension; I25.10 Atherosclerotic heart disease of native coronary artery without angina pectoris; Z86.73 Personal history of transient ischemic attack (TIA), and cerebral infarction without residual deficits; Z87.891 Personal history of nicotine dependence; Z86.711 Personal history of pulmonary embolism; Z85.118 Personal history of other malignant neoplasm of bronchus and lung; I25.2 Old myocardial infarction; Z79.899 Other long term (current) drug therapy
CPT/HCPCS: 31500; 36415; 36556; 36600; 70450; 71045; 80048; 80053; 80307; 81001; 82805; 83605; 83880; 84484; 85025; 86141; 87040; 87070; 87081; 87086; 87205; 87426; 87804; 93005; 94002; 94003; 94640; 96374; 96375; 97163; 99291; G0378; J0330; J2470; J2543; J2704

== ENCOUNTER 2024-12-25 18:47 | Inpatient (IN) | payer MEDICARE, MEDICAID ==
[~2024-12-25] VITALS: Ht 162.6 cm; Wt 61.1 kg
[~2024-12-25 18:47] MED LIST changes: +AZIT500T66 PO; +PRED30TA4 PO
[2024-12-25 18:49] VITALS: PULSE 101; RESP 20; O2SAT 100
[2024-12-25] MEDS: ALBUTEROL SULF 2.5 MG/0.5ML(0.5%) NEB SOLN NEB ONE (18:56)
[2024-12-25] MEDS: IPRATROPIUM BROM 0.5 MG/2.5ML INH SOL NEB ONE (18:56)
--- NOTE | 2024-12-25 18:57 | ED.PDOC ---
History of Present Illness HPI Comments 69-year-old male who came to ER via EMS for shortness of breath. Patient does have history of COPD and lung cancer. Patient just finished defecating earlier, when he developed sudden onset shortness of breath, progressively worsening. Patient was placed on CPAP by paramedics on scene. Was saturating 98% on CPAP And was discharged here last December 01, diagnosed with Acute metabolic encephalopathy, likely due to respiratory failure Possible septic shock Hypertension Dyslipidemia History of coronary artery disease Acute on chronic hypoxic respiratory failure COPD exacerbation Pneumonia, likely due to Gram-positive/Gram-negative bacteria/viral Lung cancer, status post lobectomy History of pulmonary emboli Inguinal hernia Septic shock, likely due to sepsis Sepsis, likely due to pneumonia Pneumonia Mild hyponatremia Mild cognitive dysfunction History of CVA REVIEW OF SYSTEMS: General: No fever, no chills, or fatigue HEENT: No sore throat, no earache, no congestion, no neck pain. Cardiac: No chest pain. No palpitations. Lungs: (+) shortness of breath, no cough. GI: No nausea, no vomiting, no diarrhea, no constipation, no abdominal pain : No dysuria, frequency, or urgency. No hematuria. Musculoskeletal: No joint pain , no joint swelling, no extremity edema. Skin: No rash, no itching. Neuro: No headache, no dizziness, no weakness EXAM: General: Awake, alert and oriented. No acute distress. Skin: Skin in warm, dry and intact. Appropriate color for ethnicity. HEENT: The head is normocephalic and atraumatic. Conjunctivae are clear without exudates or hemorrhage. Sclera is non-icteric. EOM are intact. No signs of nystagmus. Eyelids are normal in appearance without swelling or lesions. Oral mucosa is pink and moist Neck: The neck is supple with normal range of motion. No JVD. Cardiac: Heart rate and rhythm are normal. No murmurs, gallops, or rubs are auscultated. Respiratory: Patient is tachypneic with bilateral wheezes Abdominal: Abdomen is soft, non-tender without distention. Bowel sounds are present and normoactive in all four quadrants. Extremities: Upper and lower extremities are atraumatic in appearance without deformity or edema. Neurological: The patient is awake, alert and oriented to person, place, and time with normal speech. Speech is clear. There is no facial asymmetry. Psychiatric: Appropriate mood and affect. 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 Allergies: Coded Allergies: NO KNOWN ALLERGIES (Unverified , 03/24/22) Home Meds Active Scripts Prednisolone Sodium Phosphate (Prednisolone Sodium Phosp) 30 Mg Tab, 40 MG PO DAILY for 5 Days, #7 TAB Prov:SIMA MORRISON RESDIENT 12/01/24 Azithromycin (Azithromycin) 500 Mg Tab, 500 MG PO DAILY for 5 Days, #5 TAB Prov:SIMA MORRISON RESDIENT 12/01/24 Umeclidinium-Vilanterol (Anoro Ellipta 62.5-25 Mcg/INH) 1 Aer Aer, 1 AER IN DAILY for 30 Days, #1 AER 2 Refills Prov:NIKI DRAKE RESIDENT 11/10/24 Albuterol Sulfate (Albuterol Sulfate Hfa) 108 Mcg/Act Aer, 2 PUFF INH Q6HR for 30 Days, #1 AER Prov:NIKI DRAKE [facility] 11/10/24 Azithromycin (ZITHROMAX TABLET) 250 Mg Tb, 250 MG PO BID for 5 Days, #10 TAB Prov:ALIYANIKI BELLO [facility] 11/10/24 Prednisone (Prednisone) 20 Mg Tab, 40 MG PO DAILY for 3 Days, #6 TAB Prov:NIKI DRAKE [facility] 11/10/24 Prednisone (Prednisone) 20 Mg Tab, 20 MG PO DAILY, #10 MG Prov:VALERIO HOLDER MD 10/20/24 Albuterol Sulfate (VENTOLIN MDI) 90 Mcg Ih, 90 MCG IN QID PRN, #1 INH Prov:VALERIO HOLDER MD 10/20/24 Ipratropium-Albuterol (Ipratropium [place]/Albut) 1 Amanda Amanda, 2 PUFF INH PRN PRN for SHORTNESS OF BREATH for 30 Days, #3 PUFF Prov:BIRDIE AIKEN RESIDENT 09/07/24 Albuterol Sulfate (VENTOLIN MDI) 90 Mcg Ih, 90 MCG IN QID PRN, #1 INH Prov:VALERIO HOLDER MD 06/16/24 Amlodipine Besylate (Amlodipine Besylate) 10 Mg Tab, 1 TAB PO DAILY, #90 TAB 1 Refill Prov:VALERIO HOLDER MD 07/17/21 Apixaban Base (ELIQUIS) 5 Mg Tab, 5 MG PO BID for 90 Days, #180 TAB Prov:DORIS DIAZ MD 06/18/20 Reported Medications Hctz (Hydrochlorothiazide) 25 Mg Tab, 1 TAB PO QAM for 30 Days, #30 11/08/24 Aspirin (Aspirin Low Dose) 81 Mg Tab, 1 TAB PO DAILY 10/17/24 Memantine Hydrochloride (Memantine HCl) 10 Mg Tab, 1 TAB PO BID 04/06/23 Information Source: Patient, Emergency Med Personnel Mode of Arrival: EMS Past Medical History PAST MEDICAL HISTORY: Asthma, Cancer, COPD, CVA, HTN, SD, PE Past Medical History (Other): Lung cancer Surgical History (Other): Lobectomy Family History Family History: Reviewed,noncontributory to illness, Family hx of Cancer Social History Smoker: Quit Greater Than 1 Year, Cigarettes Alcohol: Denies ETOH Use Drugs: Denies Drug Use Lives In: Home Was a procedure done? Was a procedure done?: No Differential Dx Considerations may include: COPD, lung cancer, pneumonia, acute respiratory failure X-Ray, Labs, Meds, VS Vital Signs Date Time Temp Pulse Resp B/P (MAP) Pulse Ox O2 Delivery O2 Flow Rate FiO2 12/25/24 20:37 91 12/25/24 20:30 93 15 131/68 (89) 98 12/25/24 20:00 94 12/25/24 18:56 25 100 Bi-Pap+ 100 100 12/25/24 18:49 101 20 100 Bi-Pap+ 60 60 60 12/25/24 18:49 97.7 104 20 136/76 (96) 100 97.7 12/25/24 18:47 104 149/81 Facial BiPAP Mask 60 12/25/24 18:47 97.7 115 24 168/101 98 97.7 Lab Test 12/25/24 21:02 12/25/24 19:59 12/25/24 19:41 12/25/24 19:17 Range/Units Influenza Type A Antigen Pending Influenza Type B Antigen Pending SARS-CoV-2 Antigen (Rapid) Pending Troponin I High Sensitivity 7 5 </=54 ng/L Blood Gas Specimen Type Arterial Blood Gas Sample Site Left radial Blood Gas Patient Temperature 37.0 Arterial Blood Date Drawn [id number] Arterial Blood pH 7.395 7.350-7.450 Arterial Blood Partial Pressure CO2 44.7 35.0-48.0 mmHg Arterial Blood Partial Pressure O2 297.1 H 83.0-108.0 mmHg Arterial Blood HCO3 26.8 21.0-28.0 mmol/L Arterial Blood Oxygen Saturation 99.9 H 94.0-98.0 % Arterial Blood Base Excess 1.5 -2.0-3.0 mmol/L Arterial Blood Oxyhemoglobin 98.5 H 94.0-98.0 % Arterial Blood Carboxyhemoglobin 0.7 0.5-1.5 % Arterial Blood Methemoglobin 0.7 0.0-1.5 % Chema Test Modified Blood Gas Total Hemoglobin 13.30 L 13.5-17.5 g/dL Blood Gas Modality Mask - bipap FiO2 % 60.0 Blood Gas EPAP 5 Blood Gas IPAP 12 White Blood Count 8.9 4.4-10.8 10^3/uL Red Blood Count 4.94 4.5-5.90 10^6/uL Hemoglobin 13.3 L 13.5-17.5 g/dL Hematocrit 40.9 L 41.0-53.0 % Mean Corpuscular Volume 82.7 80.0-100.0 fL Mean Corpuscular Hemoglobin 26.9 L 28.0-32.0 pg Mean Corpuscular Hemoglobin Concent 32.5 32.0-36.0 g/dL Red Cell Distribution Width 18.7 H 11.8-14.3 % Platelet Count 328 140-450 10^3/uL Mean Platelet Volume 7.4 6.9-10.8 fL Neutrophils (%) (Auto) 48.3 37.0-80.0 % Lymphocytes (%) (Auto) 27.2 10.0-50.0 % Monocytes (%) (Auto) 13.4 H 0.0-12.0 % Eosinophils (%) (Auto) 10.4 H 0.0-7.0 % Basophils (%) (Auto) 0.7 0.0-2.0 % Neutrophils # (Auto) 4.3 1.6-8.6 10 ^3/uL Lymphocytes # (Auto) 2.4 0.4-5.4 10 ^3/uL Monocytes # (Auto) 1.2 0-1.3 10 ^3/uL Eosinophils # (Auto) 0.9 H 0-0.8 10 ^3/uL Basophils # (Auto) 0.1 0-0.2 10 ^3/uL Nucleated Red Blood Cells 0.1 % Sodium Level 144 136-145 mmol/L Potassium Level 3.7 3.5-5.1 mmol/L Chloride Level 103 98-107 mmol/L Carbon Dioxide Level 28 20-31 mmol/L Anion Gap 13 5-15 Blood Urea Nitrogen 8 L 9-23 mg/dL Creatinine 1.13 0.700-1.30 mg/dL Glomerular Filtration Rate Calc 70 >90 mL/min BUN/Creatinine Ratio 7.1 L 10.0-20.0 Serum Glucose 147 H 74-106 mg/dL Lactic Acid Level 2.6 *H 0.4-2.0 mmol/L Calcium Level 9.4 8.7-10.4 mg/dL Total Bilirubin 0.3 0.2-1.0 mg/dL Aspartate Amino Transferase (AST) 23 13-40 U/L Alanine Aminotransferase (ALT) 32 7-40 U/L Alkaline Phosphatase 116 46-116 U/L B-Type Natriuretic Peptide 16.27 0-100 pg/mL Total Protein 6.4 5.7-8.2 g/dL Albumin 4.2 3.2-4.8 g/dL Current Medications Medications (Trade) Dose Ordered Sig/Arnaldo Route Start Time Stop Time Status Last Admin Albuterol (Ventolin Medneb) 2.5 mg ONCE ONCE NEB 12/25/24 19:00 12/25/24 19:01 DC 12/25/24 18:56 Ipratropium [place] (Atrovent Medneb) 0.5 mg ONCE ONCE NEB 12/25/24 19:00 12/25/24 19:01 DC 12/25/24 18:56 Methylprednisolone Sodium Succinate (Solu Medrol) 80 mg ONCE ONCE IV 12/25/24 19:00 12/25/24 19:01 DC 12/25/24 19:07 Sodium Chloride 500 ml @ 500 mls/hr Q1H ONCE IV 12/25/24 20:00 12/25/24 20:59 DC 12/25/24 20:00 CHEST RADIOGRAPH Indication: Shortness of breath Technique: Single frontal view of the chest was obtained Comparison: XY CHEST XRAY 1 VIEW on DOS: 12/01/24, XY CHEST XRAY 1 VIEW on DOS: 11/30/24, XY CHEST XRAY 1 VIEW on DOS: 11/29/24 FINDINGS: Lines and Tubes: None Lungs: Stable changes in the right base unchanged from 12/01/2024. Persistent small pleural effusions Pleura: No effusion. No pneumothorax. Cardiomediastinal contours: Unremarkable Bones: No acute osseous abnormality. IMPRESSION: 1. No change from 12/01/2024 Time of 1ST Reevaluation: 18:54 Reevaluation 1ST: Unchanged Patient Education/Counseling: Need For Follow Up Family Education/Counseling: No Family Present SEPSIS Sepsis Screen Physician Orders Abg W/ Co-Ox (12/25/24 18:50) Covid19 Antigen Freda (12/25/24 ) Rapid Influenza A&B (12/25/24 18:50) Chest Xray 1 View (12/25/24 18:57) Electrocardigram (12/25/24 18:50) Titrate Oxygen (12/25/24 18:50) Oxygen (12/25/24 ) Continous Pulse Oximetry (12/25/24 18:50) Saline Lock (12/25/24 18:50) Nurse Staff [facility] (12/25/24 ) Troponin-I Hs (12/25/24 21:50) Electrocardigram (12/25/24 19:50) Electrocardigram (12/25/24 21:50) BIPAP (12/25/24 18:54) Vital Signs Date Time Temp Pulse Resp B/P (MAP) Pulse Ox O2 Delivery O2 Flow Rate FiO2 12/25/24 20:37 91 12/25/24 20:30 93 15 131/68 (89) 98 12/25/24 20:00 94 12/25/24 18:56 25 100 Bi-Pap+ 100 100 12/25/24 18:49 101 20 100 Bi-Pap+ 60 60 60 12/25/24 18:49 97.7 104 20 136/76 (96) 100 97.7 12/25/24 18:47 104 149/81 Facial BiPAP Mask 60 12/25/24 18:47 97.7 115 24 168/101 98 97.7 Laboratory Tests Test 12/25/24 19:17 Lactic Acid Level 2.6 mmol/L (0.4-2.0) *H White Blood Count 8.9 10^3/uL (4.4-10.8) Medications Medications Dose Ordered Sig/Arnaldo Route Start Time Stop Time Status Last Admin Dose Admin Albuterol 2.5 mg ONCE ONCE NEB 12/25/24 19:00 12/25/24 19:01 DC 12/25/24 18:56 Ipratropium [place] 0.5 mg ONCE ONCE NEB 12/25/24 19:00 12/25/24 19:01 DC 12/25/24 18:56 Methylprednisolone Sodium Succinate 80 mg ONCE ONCE IV 12/25/24 19:00 12/25/24 19:01 DC 12/25/24 19:07 Sodium Chloride 500 ml @ 500 mls/hr Q1H ONCE IV 12/25/24 20:00 12/25/24 20:59 DC 12/25/24 20:00 Departure 1 Departure Time of Disposition: 21:32 Impression: Primary Impression: COPD with acute exacerbation Disposition: ADMITTED INPATIENT Condition: Stable Comments MDM: 69-year-old male who presented in respiratory distress He was started on BiPAP on arrival to the emergency department Patient is stabilized in the ED Patient admitted to hospitalist service for further treatment, evaluation and monitoring. Extensive evaluation was performed in attempt to identify or rule out: (See differential diagnosis section) The following tests were ordered, and results were reviewed by me and discussed with patient: (See diagnostic results section) The following test were independently interpreted by me: EKG, chest x-ray-no acute process I reviewed and agreed with the following test results read by other providers: Chest x-ray I reviewed the following notes from the pt's past medical encounters: Encounter November 28, 2024 for acute hypoxic respiratory failure Additional information was gathered from interviewing the following independent historians: EMS personnel Discussion of management or test interpretation with external physician/other qualified health director of primary care: N/A Addressed an acute or chronic illness that poses a threat to life or bodily function: COPD exacerbation Decision regarding hospitalization or escalation of hospital level of care: Risk and benefits of admission for further treatment of patient's condition was considered. Due to patient's current clinical condition, high risk of decline and poor outcome if discharged and need for further inpatient management and monitoring, patient will be admitted to the hospital. Critical Care Note Critical Care Time?: No Stability Stability form required: No Heart Score Heart Score: Heart Score Response (Comments) Value History N/A 0 EKG N/A 0 Age N/A 0 Risk Factors N/A 0 Troponin N/A 0 Total 0 I personally scribed for CANDIDO WADE MD ([email or web address]) on 12/25/24 at 18:57. Electronically submitted by Nas Patton ([employer]). I personally scribed for CANDIDO WADE MD ([email or web address]) on 12/25/24 at 19:24. Electronically submitted by Nas Patton ([employer]). I personally scribed for CANDIDO WADE MD ([email or web address]) on 12/25/24 at 20:11. Electronically submitted by Nas Patton ([email or web address]). CANDIDO WADE MD Dec 25, 2024 18:57
[2024-12-25] MEDS: methylPREDNISolone SOD SUCC 125 MG/2 ML VL IV ONE (19:07)
--- NOTE | 2024-12-25 19:36 | DVH ---
CHEST RADIOGRAPH Indication: Shortness of breath Technique: Single frontal view of the chest was obtained Comparison: XY CHEST XRAY 1 VIEW on DOS: 12/01/24, XY CHEST XRAY 1 VIEW on DOS: 11/30/24, XY CHEST XRAY 1 VIEW on DOS: 11/29/24 FINDINGS: Lines and Tubes: None Lungs: Stable changes in the right base unchanged from 12/01/2024. Persistent small pleural effusions Pleura: No effusion. No pneumothorax. Cardiomediastinal contours: Unremarkable Bones: No acute osseous abnormality. IMPRESSION: 1. No change from 12/01/2024
[2024-12-25 19:43] LABS: Hematocrit 40.9 % (41.0-53.0); Hemoglobin 13.3 g/dL (13.5-17.5); Mean Corpuscular Hemoglobin 26.9 pg (28.0-32.0); Mean Corpuscular Volume 82.7 fL (80.0-100.0); Nucleated Red Blood Cells % 0.1 %
[2024-12-25 19:58] LABS: Alanine Aminotransferase 32 U/L (7-40); Anion Gap 13 (5-15); BUN/Creatinine Ratio 7.1 (10.0-20.0); Calcium 9.4 mg/dL (8.7-10.4); Carbon Dioxide 28 mmol/L (20-31); Chloride 103 mmol/L (98-107); Potassium 3.7 mmol/L (3.5-5.1); Sodium 144 mmol/L (136-145); Total Protein 6.4 g/dL (5.7-8.2)
[2024-12-25 19:59] LABS: Albumin 4.2 g/dL (3.2-4.8); Alkaline Phosphatase 116 U/L (46-116); Bilirubin, Total 0.3 mg/dL (0.2-1.0); Blood Urea Nitrogen 8 mg/dL (9-23); Glucose 147 mg/dL (74-106)
[2024-12-25] MEDS: SODIUM CHLORIDE 0.9% 500 ML IV ONE (20:00)
[2024-12-25 20:02] LABS: Lactic Acid w/Reflex 2.6 mmol/L (0.4-2.0)
[2024-12-25 21:05] LABS: Base Excess 1.5 mmol/L (-2.0-3.0)
[2024-12-25 22:38] VITALS: BP 136/76; PULSE 104; RESP 20; TEMP 97.7; O2SAT 100
[2024-12-25 22:52] LABS: COVID19 ANTIGEN SOFIA FIA NEGATIVE (NEGATIVE)
[2024-12-25] MEDS: SODIUM CHLORIDE 0.9% 1,000 ML IV ONE (23:34)
[2024-12-25] MEDS ORDERED: IPRATROPIUM BROM 0.5 MG/2.5ML INH SOL NEB PRN (23:45)
[2024-12-25] MEDS ORDERED: ALBUTEROL SULF 2.5 MG/0.5ML(0.5%) NEB SOLN NEB PRN (23:45)
[2024-12-25] MEDS ORDERED: ONDANSETRON HCL 4 MG/2 ML VIAL IV PRN (23:45)
[2024-12-25] MEDS ORDERED: NITROGLYCERIN 0.4 MG SL TAB SL PRN (23:45)
[2024-12-25] MEDS ORDERED: ACETAMINOPHEN 325 MG TAB PO PRN (23:45)
[2024-12-25] MEDS ORDERED: MORPHINE SULFATE INJ 2 MG/ml SYRG IV PRN (23:45)
[2024-12-26] VITALS (8 sets, daily range): BP systolic 123–135; BP diastolic 53–84; PULSE 73–91; RESP 16–18; TEMP 98.1–99.5; O2SAT 98–100
--- NOTE | 2024-12-26 01:14 | DVHHP2 ---
History of Present Illness Reason for Visit: Shortness for breath History of Present Illness 69-year-old male presents for evaluation of shortness for breath. Patient with a history of lung cancer status post lumpectomy presents with a one day history of worsening shortness for breath. Denies cough or fever. No chest pain. No other acute complaints reported. Past Medical History CVA, hypertension, mi, PE, COPD, lung cancer, asthma Past Surgical History Lobectomy Family History Noncontributory Smoke: <1 pack per day ALCOHOL: none Drugs: None Lives: with Family Review of Systems Review of Systems Review of systems are currently negative otherwise addressed in HPI. Allergies: Coded Allergies: NO KNOWN ALLERGIES (Unverified , 03/24/22) Medications Current Medications Medications Dose Ordered Sig/Arnaldo Route Start Time Stop Time Status Last Admin Dose Admin Methylprednisolone Sodium Succinate 40 mg DAILY IV 12/26/24 10:00 Amlodipine Besylate 10 mg DAILY PO 12/26/24 10:00 Apixaban 5 mg BID PO 12/26/24 10:00 Hydrochlorothiazide 25 mg DAILY PO 12/26/24 10:00 Memantine 10 mg Q12HR PO 12/26/24 10:00 Albuterol 2.5 mg Q6HPRN PRN NEB 12/25/24 23:45 Ipratropium [place] 0.5 mg Q6HPRN PRN NEB 12/25/24 23:45 Ondansetron HCl 4 mg Q4HP PRN IV 12/25/24 23:45 Acetaminophen 650 mg Q6HP PRN PO 12/25/24 23:45 Nitroglycerin 0.4 mg Q5MINP PRN SL 12/25/24 23:45 Morphine Sulfate 2 mg Q30M PRN IV 12/25/24 23:45 Ceftriaxone Sodium 50 ml @ 100 mls/hr DAILY@09 IV 12/26/24 09:00 UNV Exam Vital Signs Vital Signs Date Time Temp Pulse Resp B/P (MAP) Pulse Ox O2 Delivery O2 Flow Rate FiO2 12/26/24 00:00 91 12/25/24 22:38 97.7 20 136/76 100 60 97.7 12/25/24 22:10 Facial BiPAP Mask 12/25/24 18:49 60 Exam Gen: 69-year-old male in mild distress Skin: Warm, dry, normal color and texture, no rash. HEENT: Normocephalic atraumatic, mucous membranes moist and pink. Neck: Cervical and supraclavicular nodes normal without enlargement, trachea is midline, thyroid gland is normal without masses. Pulmonary: Diminished breath sounds bilaterally Cardiac: Regular rate and rhythm. No murmur Abdomen: Soft, nontender, nondistended, bowel sounds present all 4 quadrants, no guarding, no rigidity, no organomegaly. Extremities: No cyanosis, clubbing, no edema Neuro: Cranial nerves II through XII grossly intact, normal affect and speech, no focal motor deficits. Labs/Xrays ORDERING PHYSICIAN: CANDIDO WADE MD PROCEDURE(s): CXR1 - CHEST XRAY 1 VIEW REASON: Shortness of breath ORDER NUMBER(s): [id number], ACCESSION NUMBER(s): [id number] CHEST RADIOGRAPH Indication: Shortness of breath Technique: Single frontal view of the chest was obtained Comparison: XY CHEST XRAY 1 VIEW on DOS: 12/01/24, XY CHEST XRAY 1 VIEW on DOS: 11/30/24, XY CHEST XRAY 1 VIEW on DOS: 11/29/24 FINDINGS: Lines and Tubes: None Lungs: Stable changes in the right base unchanged from 12/01/2024. Persistent small pleural effusions Pleura: No effusion. No pneumothorax. Cardiomediastinal contours: Unremarkable Bones: No acute osseous abnormality. IMPRESSION: 1. No change from 12/01/2024 Labs Test 12/25/24 22:37 12/25/24 22:03 12/25/24 21:02 12/25/24 19:41 Range/Units Lactic Acid Level 3.1 *H 0.4-2.0 mmol/L Troponin I High Sensitivity 8 </=54 ng/L Influenza Type A Antigen Negative Negative Influenza Type B Antigen Negative Negative SARS-CoV-2 Antigen (Rapid) Negative NEGATIVE Blood Gas Specimen Type Arterial Blood Gas Sample Site Left radial Blood Gas Patient Temperature 37.0 Arterial Blood Date Drawn Arterial Blood pH 7.395 7.350-7.450 Arterial Blood Partial Pressure CO2 44.7 35.0-48.0 mmHg Arterial Blood Partial Pressure O2 297.1 H 83.0-108.0 mmHg Arterial Blood HCO3 26.8 21.0-28.0 mmol/L Arterial Blood Oxygen Saturation 99.9 H 94.0-98.0 % Arterial Blood Base Excess 1.5 -2.0-3.0 mmol/L Arterial Blood Oxyhemoglobin 98.5 H 94.0-98.0 % Arterial Blood Carboxyhemoglobin 0.7 0.5-1.5 % Arterial Blood Methemoglobin 0.7 0.0-1.5 % Chema Test Modified Blood Gas Total Hemoglobin 13.30 L 13.5-17.5 g/dL Blood Gas Modality Mask - bipap FiO2 % 60.0 Blood Gas EPAP 5 Blood Gas IPAP 12 Test 12/25/24 19:17 Range/Units White Blood Count 8.9 4.4-10.8 10^3/uL Red Blood Count 4.94 4.5-5.90 10^6/uL Hemoglobin 13.3 L 13.5-17.5 g/dL Hematocrit 40.9 L 41.0-53.0 % Mean Corpuscular Volume 82.7 80.0-100.0 fL Mean Corpuscular Hemoglobin 26.9 L 28.0-32.0 pg Mean Corpuscular Hemoglobin Concent 32.5 32.0-36.0 g/dL Red Cell Distribution Width 18.7 H 11.8-14.3 % Platelet Count 328 140-450 10^3/uL Mean Platelet Volume 7.4 6.9-10.8 fL Neutrophils (%) (Auto) 48.3 37.0-80.0 % Lymphocytes (%) (Auto) 27.2 10.0-50.0 % Monocytes (%) (Auto) 13.4 H 0.0-12.0 % Eosinophils (%) (Auto) 10.4 H 0.0-7.0 % Basophils (%) (Auto) 0.7 0.0-2.0 % Neutrophils # (Auto) 4.3 1.6-8.6 10 ^3/uL Lymphocytes # (Auto) 2.4 0.4-5.4 10 ^3/uL Monocytes # (Auto) 1.2 0-1.3 10 ^3/uL Eosinophils # (Auto) 0.9 H 0-0.8 10 ^3/uL Basophils # (Auto) 0.1 0-0.2 10 ^3/uL Nucleated Red Blood Cells 0.1 % Sodium Level 144 136-145 mmol/L Potassium Level 3.7 3.5-5.1 mmol/L Chloride Level 103 98-107 mmol/L Carbon Dioxide Level 28 20-31 mmol/L Anion Gap 13 5-15 Blood Urea Nitrogen 8 L 9-23 mg/dL Creatinine 1.13 0.700-1.30 mg/dL Glomerular Filtration Rate Calc 70 >90 mL/min BUN/Creatinine Ratio 7.1 L 10.0-20.0 Serum Glucose 147 H 74-106 mg/dL Calcium Level 9.4 8.7-10.4 mg/dL Total Bilirubin 0.3 0.2-1.0 mg/dL Aspartate Amino Transferase (AST) 23 13-40 U/L Alanine Aminotransferase (ALT) 32 7-40 U/L Alkaline Phosphatase 116 46-116 U/L B-Type Natriuretic Peptide 16.27 0-100 pg/mL Total Protein 6.4 5.7-8.2 g/dL Albumin 4.2 3.2-4.8 g/dL SEPSIS Sepsis Screen Date sepsis recognized/suspect: Dec 25, 2024 Time Sepsis recognized/suspect: 1848 Recent Procedure: No On Antibiotic Therapy: No Respiratory Rate >20: Yes Heart Rate >90: Yes Temp<36 C (96.8 F) or >38.3 C: No SBP <90 or MAP <65 mmHG: No New Acute Mental Status Change: No Is the patient on CPAP, BIPAP,: No Physician Orders Abg W/ Co-Ox (12/25/24 18:50) Chest Xray 1 View (12/25/24 18:57) Electrocardigram (12/25/24 18:50) Titrate Oxygen (12/25/24 18:50) Oxygen (12/25/24 ) Continous Pulse Oximetry (12/25/24 18:50) Saline Lock (12/25/24 18:50) Feller Operator (12/25/24 ) Electrocardigram (12/25/24 19:50) Electrocardigram (12/25/24 21:50) BIPAP (12/25/24 18:54) Methylprednisolone Sod Succ (Solu Medrol (12/26/24 10:00) Amlodipine Tablet (Norvasc Tablet) (12/26/24 10:00) Apixaban (Eliquis) (12/26/24 10:00) Hydrochlorothiazide Tablet (Hydrochlorot (12/26/24 10:00) Memantine Tablet (Namenda Tablet) (12/26/24 10:00) Basic Metabolic Panel (12/26/24 04:00) Albuterol Medneb (Ventolin Medneb) (12/25/24 23:45) Ipratropium Medneb (Atrovent Medneb) (12/25/24 23:45) Admit (12/25/24 23:31) Ondansetron Hcl (Zofran) (12/25/24 23:45) Complete Blood Count (12/26/24 04:00) Cardiac Diet-2gna,Lofat,Lochol (12/26/24 Breakfast) Condition: Fair (12/25/24 23:31) Acetaminophen Tablet (Tylenol Tablet) (12/25/24 23:45) Bedrest With Bathroom Privileg (12/25/24 23:31) Nitroglycerin Sublingual (Ntrostat Subli (12/25/24 23:45) Morphine Sulfate Injection (12/25/24 23:45) Stat Ekg For Chest Pain (12/25/24 23:31) Notify Md Of Changes From Base (12/25/24 23:31) Train Braker For 24 Hours (12/25/24 23:31) Emergency Dysrhythmia Protocol (12/25/24 23:31) Rhythm Strips Once Every Shift (12/25/24 23:31) Oxygen By Nasal Cannula (12/25/24 23:31) Blood Culture (12/26/24 01:02) Ceftriaxone 1gm/50ml (Rocephin) (12/26/24 09:00) Ceftriaxone 1gm/50ml (Rocephin) (12/26/24 01:15) Vital Signs Date Time Temp Pulse Resp B/P (MAP) Pulse Ox O2 Delivery O2 Flow Rate FiO2 12/26/24 00:00 91 12/25/24 22:38 97.7 104 20 136/76 100 60 97.7 12/25/24 22:10 94 131/68 Facial BiPAP Mask 30 12/25/24 22:00 91 15 129/71 (90) 97 12/25/24 20:37 91 12/25/24 20:30 93 15 131/68 (89) 98 12/25/24 20:00 94 12/25/24 18:56 25 100 Bi-Pap+ 100 100 12/25/24 18:49 101 20 100 Bi-Pap+ 60 60 60 12/25/24 18:49 97.7 104 20 136/76 (96) 100 97.7 12/25/24 18:47 104 149/81 Facial BiPAP Mask 60 12/25/24 18:47 97.7 115 24 168/101 98 97.7 Laboratory Tests Test 12/25/24 19:17 12/25/24 22:37 Lactic Acid Level 2.6 mmol/L (0.4-2.0) *H 3.1 mmol/L (0.4-2.0) *H White Blood Count 8.9 10^3/uL (4.4-10.8) Medications Medications Dose Ordered Sig/Arnaldo Route Start Time Stop Time Status Last Admin Dose Admin Albuterol 2.5 mg ONCE ONCE NEB 12/25/24 19:00 12/25/24 19:01 DC 12/25/24 18:56 2.5 MG Ipratropium [place] 0.5 mg ONCE ONCE NEB 12/25/24 19:00 12/25/24 19:01 DC 12/25/24 18:56 0.5 MG Methylprednisolone Sodium Succinate 80 mg ONCE ONCE IV 12/25/24 19:00 12/25/24 19:01 DC 12/25/24 19:07 80 MG Sodium Chloride 500 ml @ 500 mls/hr Q1H ONCE IV 12/25/24 20:00 12/25/24 20:59 DC 12/25/24 20:00 500 MLS/HR Sodium Chloride 1,000 ml @ 1,000 mls/hr Q1H ONCE IV 12/25/24 23:30 12/26/24 00:29 DC 12/25/24 23:34 1,000 MLS/HR Assessment/Plan Assessment/Plan Assessment Acute on chronic hypoxic respiratory failure COPD exacerbation History of lung cancer status post lumpectomy Hypertension Plan Admit the patient to telemetry to the hospitalist Shiv Guzman Resume home medications Continue treatment per orders. Plan discussed with: Patient My Orders Orders - BETTE NEUMANN AGACNP Procedure Category Date Status Time Methylprednisolone PHA 12/26/24 In Process Sod Succ (Solu Medrol 10:00 Amlodipine Tablet PHA 12/26/24 In Process (Norvasc Tablet) 10:00 Apixaban (Eliquis) PHA 12/26/24 In Process 10:00 Hydrochlorothiazide PHA 12/26/24 In Process Tablet (Hydrochlorot 10:00 Memantine Tablet PHA 12/26/24 In Process (Namenda Tablet) 10:00 Basic Metabolic Panel LAB 12/26/24 Logged 04:00 Albuterol Medneb PHA 12/25/24 In Process (Ventolin Medneb) 23:45 Ipratropium Medneb PHA 12/25/24 In Process (Atrovent Medneb) 23:45 Admit ADMIT 12/25/24 Transmitted 23:31 Ondansetron Hcl PHA 12/25/24 In Process (Zofran) 23:45 Complete Blood Count LAB 12/26/24 Logged 04:00 Cardiac DIET 12/26/24 Transmitted Diet-2gna,Lofat,Lochol Breakfast Condition: Fair [facility] 12/25/24 In Process 23:31 Acetaminophen Tablet PHA 12/25/24 In Process (Tylenol Tablet) 23:45 Bedrest With Bathroom [facility] 12/25/24 In Process Privileg 23:[address] [facility] 12/25/24 In Process Sublingual (Ntrostat 23:45 Morphine Sulfate PHA 12/25/24 In Process Injection 23:45 Stat Ekg For Chest [facility] 12/25/24 In Process Pain 23:31 Notify Md Of Changes [facility] 12/25/24 In Process From Base 23:31 Train Braker For [facility] 12/25/24 In Process 24 Hours 23:31 Emergency Dysrhythmia [facility] 12/25/24 In Process Protocol 23:31 Rhythm Strips Once [facility] 12/25/24 In Process Every Shift 23:31 Oxygen By Nasal RT 12/25/24 Transmitted Cannula 23:31 Blood Culture ANNAM[facility]IA 12/26/24 Uncollected 01:02 Ceftriaxone 1gm/50ml PHA 12/26/24 Logged (Rocephin) 09:00 Ceftriaxone 1gm/50ml PHA 12/26/24 Logged (Rocephin) 01:15 Date of Service: Dec 25, 2024 Billing Provider: BETTE NEUMANN Common Visit Codes: [id number] INP/OBS CARE (HIGH) BETTE NEUMANN AGACNP Dec 26, 2024 01:14
--- NOTE | 2024-12-26 06:29 | ECG ---
[facility] Test Date: 2024-12-25 Test Time: 20:37:08 Pat Name: KAISER BARRERA Department: [facility] ED Room: 0219T Gender: M Paginator: NENITA : 1955 Requested By: CANDIDO WADE Order Number: [id number] Reading MD: Bryan Canela Measurements Intervals [place] Switch Rate: 91 P: 88 ME: 166 QRS: 48 QRSD: 88 T: 81 QT: 372 QTc: 458 Interpretive Statements Sinus rhythm Electronically Signed On 12-29-2024 15:41:27 PST by Bryan Canela Please click the below link to view image of tracing.
[2024-12-26 06:59] LABS: Hematocrit 43.6 % (41.0-53.0); Hemoglobin 14.1 g/dL (13.5-17.5); Mean Corpuscular Hemoglobin 26.6 pg (28.0-32.0); Mean Corpuscular Volume 82.3 fL (80.0-100.0); Nucleated Red Blood Cells % 0.2 %
[2024-12-26 07:20] LABS: Potassium 4.2 mmol/L (3.5-5.1)
[2024-12-26 07:21] LABS: Anion Gap 11 (5-15); Calcium 9.5 mg/dL (8.7-10.4); Carbon Dioxide 25 mmol/L (20-31)
[2024-12-26 07:26] LABS: BUN/Creatinine Ratio 5.4 (10.0-20.0)
[2024-12-26 07:32] LABS: Blood Urea Nitrogen 5 mg/dL (9-23); Chloride 109 mmol/L (98-107); Glucose 152 mg/dL (74-106); Sodium 145 mmol/L (136-145)
[2024-12-26] MEDS: MEMANTINE HCL 5 MG TAB PO SCH (09:41)
[2024-12-26] MEDS: hydroCHLOROthiazide 25 MG TAB PO SCH (09:41)
[2024-12-26] MEDS: APIXABAN 5 MG TAB PO SCH (09:41)
[2024-12-26] MEDS: methylPREDNISolone SOD SUCC 40 MG/ML VL IV SCH (09:41)
--- NOTE | 2024-12-26 13:35 | DVHPN2 ---
Subjective Patient states that his respiratory status has improved Reviewed: Care Plan, H&P, Labs, Medications Changes from previous H/P or p: No Changes General: Per HPI Objective Vitals Vital Signs Date Time Temp Pulse Resp B/P (MAP) Pulse Ox O2 Delivery O2 Flow Rate FiO2 12/26/24 12:00 98.3 82 16 119/62 (81) 99 98.3 12/26/24 07:30 Nasal Cannula* 3 32 Intake/Output Intake and Output 12/26/24 07:00 Output Total 1550 ml Balance -1550 ml Output Urine Total 1550 ml General Appearance: Alert, Oriented X3, Cooperative, No acute distress HEENT: Atraumatic, PERRLA Lungs: Clear to auscultation, Normal air movement Cardiovascular: Normal S1, Normal S2 Abdomen: Normal bowel sounds, Soft, No tenderness, No hepatospenomegaly Musculoskeletal: Normal sensory function, Normal motor function Neuro: Normal gait, Normal speech Skin: Dry, Intact Psych/Mental Status: Mental status NL, Mood NL Medications Current Medications Medications Dose Ordered Sig/Arnaldo Route Start Time Stop Time Status Last Admin Dose Admin Methylprednisolone Sodium Succinate 40 mg DAILY IV 12/26/24 10:00 12/26/24 09:41 40 MG Amlodipine Besylate 10 mg DAILY PO 12/26/24 10:00 12/26/24 09:41 10 MG Apixaban 5 mg BID PO 12/26/24 10:00 12/26/24 09:45 5 MG Hydrochlorothiazide 25 mg DAILY PO 12/26/24 10:00 12/26/24 09:41 25 MG Memantine 10 mg Q12HR PO 12/26/24 10:00 12/26/24 09:45 10 MG Albuterol 2.5 mg Q6HPRN PRN NEB 12/25/24 23:45 Ipratropium [place] 0.5 mg Q6HPRN PRN NEB 12/25/24 23:45 Ondansetron HCl 4 mg Q4HP PRN IV 12/25/24 23:45 Acetaminophen 650 mg Q6HP PRN PO 12/25/24 23:45 Nitroglycerin 0.4 mg Q5MINP PRN SL 12/25/24 23:45 Morphine Sulfate 2 mg Q30M PRN IV 12/25/24 23:45 Ceftriaxone Sodium 50 ml @ 100 mls/hr DAILY@09 IV 12/27/24 09:00 Laboratory Results Laboratory Tests 12/26/24 06:41 Chemistry Test 12/25/24 19:17 12/26/24 06:41 Albumin 4.2 g/dL (3.2-4.8) Calcium Level 9.4 mg/dL (8.7-10.4) 9.5 mg/dL (8.7-10.4) Total Protein 6.4 g/dL (5.7-8.2) Cardiac Markers Test 12/25/24 19:17 B-Type Natriuretic Peptide 16.27 pg/mL (0-100) LFT Test 12/25/24 19:17 Alanine Aminotransferase (ALT) 32 U/L (7-40) Alkaline Phosphatase 116 U/L (46-116) Aspartate Amino Transferase (AST) 23 U/L (13-40) Total Bilirubin 0.3 mg/dL (0.2-1.0) Blood Gas Results Test 12/25/24 19:41 Arterial Blood pH 7.395 (7.350-7.450) FiO2 % 60.0 Labs and/or images reviewed: Labs reviewed by me, Image(s) reviewed by me Assessment/Plan Assessment/Plan Impression: -acute on chronic hypoxic respiratory failure -COPD with exacerbation -rule out bronchial pneumonia -history of lung cancer -history of CVA -history of pulmonary embolism Plan: -O2 supplementation to keep saturation greater than 91% -continue DuoNebs q.6 hours while awake -continue IV Solu-Medrol -add Pulmicort 0.5 b.i.d. -continue Rocephin, add doxycycline -repeat labs and chest x-ray in a.m. Total time spent with patient discussing and formulating plan of care: 35 minutes. This medical document was created using an electronic medical record system with [employer]elly dictation system. Although this document has been carefully reviewed, there may still be some phonetic and typographical errors. These areas are purely typographical due to imperfections of the software programs, and do not reflect any compromise in the patient's medical care. Plan discussed with: Patient, Other (RN) My Orders Orders - AVA SALCEDO [employer] Procedure Category Date Status Time Doxycycline Tablet PHA 12/26/24 Transmitted (Vibramycin Tablet) 22:00 Albuterol Medneb PHA 12/26/24 Transmitted (Ventolin Medneb) 18:00 Ipratropium Medneb PHA 12/26/24 Transmitted (Atrovent Medneb) 18:00 Chest Portable XY 12/27/24 Logged 04:00 Complete Blood Count LAB 12/27/24 Verified 04:00 Date of Service: Dec 26, 2024 Billing Provider: AVA SALCEDO NP Common Visit Codes: [id number] INP/OBS CARE(HIGH) AVA SALCEDO NP Dec 26, 2024 13:35
[2024-12-26] MEDS: DOXYCYCLINE 100 MG TAB/CAP PO ONE (14:34)
[2024-12-26] MEDS ORDERED: PNEUMOCOCCAL VACC POLYS 25 MCG/0.5 ML VIAL IM ONE ×2 (15:45→16:00)
[2024-12-26] MEDS: ALBUTEROL SULF 2.5 MG/0.5ML(0.5%) NEB SOLN NEB SCH (19:03)
[2024-12-26] MEDS: IPRATROPIUM BROM 0.5 MG/2.5ML INH SOL NEB SCH (19:03)
[2024-12-26] MEDS: DOXYCYCLINE 100 MG TAB/CAP PO SCH (21:29)
[2024-12-27] VITALS (9 sets, daily range): BP systolic 109–135; BP diastolic 66–85; PULSE 64–96; RESP 15–18; TEMP 97.6–98; O2SAT 90–100
--- NOTE | 2024-12-27 05:03 | DVH ---
CHEST RADIOGRAPH Indication: pna Technique: Single frontal view of the chest was obtained COMPARISON: XY CHEST XRAY 1 VIEW on DOS: 12/25/24, XY CHEST XRAY 1 VIEW on DOS: 12/01/24, XY CHEST XRAY 1 VIEW on DOS: 11/30/24, XY CHEST XRAY 1 VIEW on DOS: 11/29/24, XY CHEST PORTABLE on DOS: 11/28/24 FINDINGS: Lines and Tubes: None Lungs: Right basilar subsegmental atelectasis. Pleura: No effusion. No pneumothorax. Cardiomediastinal contours: Unremarkable Bones: Unremarkable IMPRESSION: Right basilar subsegmental atelectasis.
[2024-12-27 05:33] LABS: Nucleated Red Blood Cells % 0.1 %
[2024-12-27 05:36] LABS: Hematocrit 42.7 % (41.0-53.0); Hemoglobin 14.2 g/dL (13.5-17.5); Mean Corpuscular Hemoglobin 27.2 pg (28.0-32.0); Mean Corpuscular Volume 81.7 fL (80.0-100.0)
[2024-12-27 10:02] LABS: Hepatitis B Surface Antigen Negative (Negative)
[2024-12-27 10:32] LABS: Hepatitis C Antibody Negative (Negative)
[2024-12-27] MEDS ORDERED: DOXY100C79 PO (11:15)
[2024-12-27] MEDS ORDERED: PRED20TA2 PO (11:15)
--- NOTE | 2024-12-27 11:21 | DVHDS2 ---
Discharge Summary Date of Admission Dec 25, 2024 at 23:31 Date of Discharge: Dec 27, 2024 Admitting Diagnosis Acute on chronic respiratory failure Labs/Diagnostic Data: Laboratory Results Test 12/27/24 04:45 12/26/24 06:41 12/25/24 22:37 12/25/24 22:03 White Blood Count 13.2 10^3/uL (4.4-10.8) Red Blood Count 5.22 10^6/uL (4.5-5.90) Hemoglobin 14.2 g/dL (13.5-17.5) Hematocrit 42.7 % (41.0-53.0) Mean Corpuscular Volume 81.7 fL (80.0-100.0) Mean Corpuscular Hemoglobin 27.2 pg (28.0-32.0) Mean Corpuscular Hemoglobin Concent 33.3 g/dL (32.0-36.0) Red Cell Distribution Width 18.3 % (11.8-14.3) Platelet Count 340 10^3/uL (140-450) Mean Platelet Volume 7.8 fL (6.9-10.8) Neutrophils (%) (Auto) 80.3 % (37.0-80.0) Lymphocytes (%) (Auto) 7.3 % (10.0-50.0) Monocytes (%) (Auto) 12.1 % (0.0-12.0) Eosinophils (%) (Auto) 0.1 % (0.0-7.0) Basophils (%) (Auto) 0.2 % (0.0-2.0) Neutrophils # (Auto) 10.6 10 ^3/uL (1.6-8.6) Lymphocytes # (Auto) 1.0 10 ^3/uL (0.4-5.4) Monocytes # (Auto) 1.6 10 ^3/uL (0-1.3) Eosinophils # (Auto) 0 10 ^3/uL (0-0.8) Basophils # (Auto) 0 10 ^3/uL (0-0.2) Nucleated Red Blood Cells 0.1 % Sodium Level 145 mmol/L (136-145) Potassium Level 4.2 mmol/L (3.5-5.1) Chloride Level 109 mmol/L (98-107) Carbon Dioxide Level 25 mmol/L (20-31) Anion Gap 11 (5-15) Blood Urea Nitrogen 5 mg/dL (9-23) Creatinine 0.93 mg/dL (0.700-1.30) Glomerular Filtration Rate Calc 89 mL/min (>90) BUN/Creatinine Ratio 5.4 (10.0-20.0) Serum Glucose 152 mg/dL (74-106) Calcium Level 9.5 mg/dL (8.7-10.4) Hepatitis B Surface Antigen Negative (Negative) Hepatitis C Antibody Negative (Negative) Lactic Acid Level 3.1 mmol/L (0.4-2.0) Troponin I High Sensitivity 8 ng/L (</=54) Test 12/25/24 21:02 12/25/24 19:41 12/25/24 19:17 Influenza Type A Antigen Negative (Negative) Influenza Type B Antigen Negative (Negative) SARS-CoV-2 Antigen (Rapid) Negative (NEGATIVE) Blood Gas Specimen Type Arterial Blood Gas Sample Site Left radial Blood Gas Patient Temperature 37.0 Arterial Blood Date Drawn [id number] Arterial Blood pH 7.395 (7.350-7.450) Arterial Blood Partial Pressure CO2 44.7 mmHg (35.0-48.0) Arterial Blood Partial Pressure O2 297.1 mmHg (83.0-108.0) Arterial Blood HCO3 26.8 mmol/L (21.0-28.0) Arterial Blood Oxygen Saturation 99.9 % (94.0-98.0) Arterial Blood Base Excess 1.5 mmol/L (-2.0-3.0) Arterial Blood Oxyhemoglobin 98.5 % (94.0-98.0) Arterial Blood Carboxyhemoglobin 0.7 % (0.5-1.5) Arterial Blood Methemoglobin 0.7 % (0.0-1.5) Chema Test Modified Blood Gas Total Hemoglobin 13.30 g/dL (13.5-17.5) Blood Gas Modality Mask - bipap FiO2 % 60.0 Blood Gas EPAP 5 Blood Gas IPAP 12 Total Bilirubin 0.3 mg/dL (0.2-1.0) Aspartate Amino Transferase (AST) 23 U/L (13-40) Alanine Aminotransferase (ALT) 32 U/L (7-40) Alkaline Phosphatase 116 U/L (46-116) B-Type Natriuretic Peptide 16.27 pg/mL (0-100) Total Protein 6.4 g/dL (5.7-8.2) Albumin 4.2 g/dL (3.2-4.8) Other Laboratory Tests 12/27/24 04:45 12/26/24 06:41 Brief Hx & Hospital Course: History of Present Illness 69-year-old male presents for evaluation of shortness for breath. Patient with a history of lung cancer status post lumpectomy presents with a one day history of worsening shortness for breath. Denies cough or fever. No chest pain. No other acute complaints reported. Course of hospitalization: Patient was weaned off of BiPAP while in the emergency room. Patient was given IV Solu-Medrol, bronchodilators, and was weaned to 2 L of oxygen via nasal cannula. Today, the patient states that he is able to ambulate to the bathroom without any dyspnea. He states he has nebulizers, oxygen, and metered-dose inhalers for when he is short of breath. Patient has been stable for the past 24 hours and we will be discharged home as instructed to follow up with the discharge Clinic within 72 hours. Patient will be continued on antibiotic therapy with doxycycline 100 mg p.o. b.i.d. for an additional seven days. He will also be provided prednisone 20 mg p.o. daily for seven days. He is instructed to continue all previous home medications other than previous steroid prescriptions. All questions answered. Physical examination General: Alert and Oriented x3. No acute distress. Well-nourished. Eyes: EOMI. Anicteric. HENT: Moist mucous membranes. Lungs: Clear to auscultation bilaterally. No accessory muscle use. Cardiovascular: Regular rate and rhythm. No murmur. No JVD. Abdomen: Soft, non-tender and non-distended. No palpable masses. Extremities: No edema. Non-tender. Skin: No rashes or lesions. Warm. Neurologic: No focal neurological deficits. CN II-XII grossly intact, but not individually tested. Psychiatric: Cooperative. Appropriate mood and affect. Total time spent with patient discussing and formulating plan of care: 35 minutes. This medical document was created using an electronic medical record system with [employer] system. Although this document has been carefully reviewed, there may still be some phonetic and typographical errors. These areas are purely typographical due to imperfections of the software programs, and do not reflect any compromise in the patient's medical care. Condition at Discharge: Fair Final Diagnosis/Problems List Acute on chronic hypoxic respiratory failure -acute on chronic hypoxic respiratory failure -COPD with exacerbation -rule out bronchial pneumonia -history of lung cancer -history of CVA -history of pulmonary embolism Discharge Disposition: Home Discharge Instruct/Medications Diet: Cardiac 2g Na,low cholest Activity: No Restrictions, As Tolerated Follow Up/Referral: Follow up with the discharge Clinic in one week Follow up with PCP in 1-2 weeks Medications: Doxycycline 100 mg p.o. b.i.d. x7 days Prednisone 20 mg p.o. daily x7 days Continue all previous home medications. Patient states that he has a home nebulizer is instructed using every 4 hours as needed for shortness of breaths. Patient also reports that he wears oxygen when he is short of breath at 4 L/min. Scheduled Albuterol Sulfate (Albuterol Sulfate Hfa), 2 PUFF INH Q6HR Amlodipine Besylate (Amlodipine Besylate), 1 TAB PO DAILY Apixaban Base (Eliquis), 5 MG PO BID Aspirin (Aspirin Low Dose), 1 TAB PO DAILY, (Reported) Azithromycin (Zithromax Tablet), 250 MG PO BID Azithromycin (Azithromycin), 500 MG PO DAILY Doxycycline (Monohydrate) (Doxycycline), 100 MG PO BID Hctz (Hydrochlorothiazide), 1 TAB PO QAM, (Reported) Memantine Hydrochloride (Memantine HCl), 1 TAB PO BID, (Reported) Prednisolone Sodium Phosphate (Prednisolone Sodium Phosp), 40 MG PO DAILY Prednisone (Prednisone), 20 MG PO DAILY Prednisone (Prednisone), 40 MG PO DAILY Prednisone (Prednisone), 20 MG PO DAILY Umeclidinium-Vilanterol (Anoro Ellipta 62.5-25 Mcg/INH), 1 AER IN DAILY Scheduled PRN Albuterol Sulfate (Ventolin Mdi), 90 MCG IN QID PRN Albuterol Sulfate (Ventolin Mdi), 90 MCG IN QID PRN Ipratropium-Albuterol (Ipratropium [place]/Albut), 2 PUFF INH PRN PRN for SHORTNESS OF BREATH 36 Discharge Statement: "Patient was advised to return to the ER or call 911 if any headaches, dizziness, shortness of breath, chest pain, abdominal pain, bleeding, fevers, or worsening of medical condition. Patient was counseled about treatment plan, medications, possible side effects, patientverbalized understanding. All questions were answered to the best of my ability. This discharge took greater then 30 minutes in planning, reviewing documentation, counseling the patient, and discussing with other team members." ASSESSMENT ASSESSMENT Assessment Acute on chronic hypoxic respiratory failure Date of Service: Dec 27, 2024 Billing Provider: AVA SALCEDO NP Common Visit Codes: [id number] DISCH DAY >30min AVA SALCEDO NP Dec 27, 2024 11:21
== END 2024-12-27 13:35 | disposition home or self-care (01) | DRG 177 ==
LOC: EDBD 18:47 → ER 18:47 → OVERFLOW 23:31 → TELE-CENTR 12-26 14:49
PROVIDERS: ADMIT Nurse Practitioner Acute Care; ATTEND Nurse Practitioner Acute Care
PROC: 5A09357 Assistance with Respiratory Ventilation, Less than 24 Consecutive Hours, Continuous Positive Airway Pressure (ICD-10-PCS; principal; 2024-12-25)
DX: J15.69 Pneumonia due to other Gram-negative bacteria (principal); J96.21 Acute and chronic respiratory failure with hypoxia; J44.0 Chronic obstructive pulmonary disease with (acute) lower respiratory infection; J15.9 Unspecified bacterial pneumonia; I10 Essential (primary) hypertension; J44.1 Chronic obstructive pulmonary disease with (acute) exacerbation; E78.5 Hyperlipidemia, unspecified; Z20.822 Contact with and (suspected) exposure to COVID-19; I25.10 Atherosclerotic heart disease of native coronary artery without angina pectoris; Z85.118 Personal history of other malignant neoplasm of bronchus and lung; Z79.899 Other long term (current) drug therapy; Z86.711 Personal history of pulmonary embolism; Z86.73 Personal history of transient ischemic attack (TIA), and cerebral infarction without residual deficits; Z87.891 Personal history of nicotine dependence
CPT/HCPCS: 36415; 36600; 71045; 80048; 80053; 82805; 83605; 83880; 84484; 85025; 86803; 87340; 87426; 87804; 93005; 94640; 96361; 96374; G0378

== ENCOUNTER 2025-01-03 14:20 | Inpatient (IN) | payer MEDICARE, MEDICAID ==
[~2025-01-03] VITALS: Ht 165.1 cm; Wt 58.9 kg
[~2025-01-03 14:20] MED LIST changes: -AZIT-185 PO; +DOXY100C79 PO; -PRED30TA4 PO; -UMEC1AER IN
[2025-01-03 14:30] VITALS: PULSE 127; RESP 28; O2SAT 91
[2025-01-03] MEDS: MIDAZOLAM HCL 5 MG/ML-1ML VIAL IM ONE (14:30)
--- NOTE | 2025-01-03 14:45 | ED.PDOC ---
SOB-HPI HPI Comments This is a 69 year old male KRAIGA presenting to the ED with chief complaint of SOB. EMS relays patient is coming from a care facility with worsening SOB since today. EMS relays patient had been placed on CPAP due to O2 sat being low on NC and patient is having seizure-like activity. EMS states patient was given a breathing treatment in the facility and [facility] treatment en route with little relief noted. Patient unable to answer questions at this time. Chief Complaint: Shortness of Breath Time Seen by MD: 14:42 Primary Care Provider: NONE Reviewed notes: Nurses Notes, Preschool Assistant Notes, Medications, Allergies Information Source: Patient, Emergency Med Personnel Mode of Arrival: EMS Severity: Moderate Timing: Hours Duration: Since onset Context: At Rest PE Risk Factors: None History of: COPD Prehospital treatment: Breathing Tx, Oxygen Modifying Factors: Nothing Past Medical History PAST MEDICAL HISTORY: Asthma, Cancer, COPD, CVA, HTN, OK, PE Surgical History: Denies all surgeries Family History Family History: Reviewed,noncontributory to illness, Family hx of Cancer Social History Smoker: Quit Greater Than 1 Year, Cigarettes Alcohol: Denies ETOH Use Drugs: Denies Drug Use Lives In: Home Constitutional: denies: chills, diaphoresis, fatigue, fever, malaise, sweats, weakness, others EENTM: denies: blurred vision, double vision, ear bleeding, ear discharge, ear drainage, ear pain, ear ringing, eye pain, eye redness, hearing loss, mouth pain, mouth swelling, nasal discharge, nose bleeding, nose congestion, nose pain, photophobia, tearing, throat pain, throat swelling, voice changes, others Respiratory: reports: shortness of breath; denies: cough, hemoptysis, orthopnea, SOB at rest, SOB with excertion, stridor, wheezing, others Cardiovascular: denies: chest pain, dizzy spells, diaphoresis, Dyspnea on exertion, edema, irregular heart beat, left arm pain, lightheadedness, palpi tations, PND, syncope, others Gastrointestinal: denies: abdomen distended, abdominal pain, blood streaked bowels, constipated, diarrhea, dysphagia, difficulty swallowing, hematemesis, melena, nausea, poor appetite, poor fluid intake, rectal bleeding, rectal pain, vomiting, others Genitourinary: denies: burning, dysuria, flank pain, frequency, hematuria, incontinence, penile discharge, penile sore, pain, testicle pain, testicle swelling, urgency, others Neurological: denies: dizziness, fainting, headache, left sided numbness, left sided weakness, numbness, paresthesia, pre-existing deficit, right sided numbness, right sided weakness, seizure, speech problems, tingling, tremors, weakness, others Musculoskeletal: denies: back pain, gout, joint pain, joint swelling, muscle pain, muscle stiffness, neck pain, others Integumetry: denies: bruises, change in color, change in hair/nails, dryness, laceration, lesions, lumps, rash, wounds, others Allergic/Immunocompromised: denies: Difficulty Healing, Frequent Infections, Hives, Itching, others Hematologic/Lymphatic: denies: anemia, blood clots, easy bleeding, easy bruis ing, swollen glands, others Endocrine: denies: excessive hunger, excessive sweating, excessive thirst, exc essive urination, flushing, intolerance to cold, intolerance to heat, unexplained weight gain, unexplained weight loss, others Psychiatric: denies: anxiety, bipolar disorder, depression, hopeless, panic disorder, schizophrenia, sleepless, suicidal, others All Other Systems: Reviewed and Negative Physical Exam General Appearance: No Apparent Distress, Normal HEENT: Normal ENT Inspection, Pharynx Normal, TMs Normal Neck: Full Range of Motion, Non-Tender, Normal, Normal Inspection Respiratory: Chest Non-Tender, Lungs Clear, Respiratory Distress, Other (Tachypneic) Cardiovascular: No Edema, No JVD, No Murmur, No Gallop, Normal Peripheral Pulses, Regular Rate/Rhythm Breast Exam: Deferred Gastrointestinal: No Organomegaly, Non Tender, No Pulsatile Mass, Normal Bowel Sounds, Soft Genitalia: Deferred Pelvic: Deferred Rectal: Deferred Extremities: No calf tenderness, Normal capillary refill, Normal inspection, Normal range of motion, Non-tender, No pedal edema Musculoskeletal : Apperance: Normal Neurologic: Alert, 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 Was a procedure done?: No Differential Dx Differential Diagnosis: CHF, Panic Attack, Pneumonia, URI X-Ray, Labs, Meds, VS Vital Signs Date Time Temp Pulse Resp B/P (MAP) Pulse Ox O2 Delivery O2 Flow Rate FiO2 01/03/25 15:45 91 01/03/25 15:13 100 Bi-Pap+ 30 30 01/03/25 15:06 107 106/73 Nasal BiPAP Mask 30 01/03/25 14:48 107 19 106/73 (84) 100 01/03/25 14:28 127 19 194/135 (154) 100 01/03/25 14:28 127 01/03/25 14:22 98.2 110 20 210/100 78 98.2 Lab Test 01/03/25 14:40 Range/Units White Blood Count 16.6 H 4.4-10.8 10^3/uL Red Blood Count 5.22 4.5-5.90 10^6/uL Hemoglobin 14.3 13.5-17.5 g/dL Hematocrit 43.4 41.0-53.0 % Mean Corpuscular Volume 83.1 80.0-100.0 fL Mean Corpuscular Hemoglobin 27.4 L 28.0-32.0 pg Mean Corpuscular Hemoglobin Concent 33.0 32.0-36.0 g/dL Red Cell Distribution Width 18.8 H 11.8-14.3 % Platelet Count 306 140-450 10^3/uL Mean Platelet Volume 7.9 6.9-10.8 fL Neutrophils (%) (Auto) 59.3 37.0-80.0 % Lymphocytes (%) (Auto) 28.1 10.0-50.0 % Monocytes (%) (Auto) 9.0 0.0-12.0 % Eosinophils (%) (Auto) 2.4 0.0-7.0 % Basophils (%) (Auto) 1.2 0.0-2.0 % Neutrophils # (Auto) 9.8 H 1.6-8.6 10 ^3/uL Lymphocytes # (Auto) 4.7 0.4-5.4 10 ^3/uL Monocytes # (Auto) 1.5 H 0-1.3 10 ^3/uL Eosinophils # (Auto) 0.4 0-0.8 10 ^3/uL Basophils # (Auto) 0.2 0-0.2 10 ^3/uL Nucleated Red Blood Cells 0.1 % Sodium Level 145 136-145 mmol/L Potassium Level 3.7 3.5-5.1 mmol/L Chloride Level 104 98-107 mmol/L Carbon Dioxide Level 30 20-31 mmol/L Anion Gap 11 5-15 Blood Urea Nitrogen 20 9-23 mg/dL Creatinine 1.27 0.700-1.30 mg/dL Glomerular Filtration Rate Calc 61 >90 mL/min BUN/Creatinine Ratio 15.7 10.0-20.0 Serum Glucose 162 H 74-106 mg/dL Calcium Level 9.8 8.7-10.4 mg/dL Troponin I High Sensitivity 7 </=54 ng/L B-Type Natriuretic Peptide 29.21 0-100 pg/mL [place] [id number] Ph: [phone] DIAGNOSTIC IMAGING Diagnostic Imaging Report : [id number] Signed PATIENT: KAISER BARRERA RACCT: [id number] UNIT: [id number] : 1955 LOC: ER ROOM / BED: / AGE / SEX: 69 / M ADM STATUS: REG ER SERVICE [id number] ORDERING PHYSICIAN: SUNITHA MCGOWAN MD PROCEDURE(s): CXRP - CHEST PORTABLE REASON: sob ORDER NUMBER(s): [id number], ACCESSION NUMBER(s): [id number] CLINICAL INFORMATION: Shortness of breath. TECHNIQUE: Single AP portable chest radiograph was obtained. COMPARISON: XY CHEST PORTABLE on DOS: 12/27/24, XY CHEST XRAY 1 VIEW on DOS: 12/25/24, XY CHEST XRAY 1 VIEW on DOS: 12/01/24 FINDINGS: Opacities in the right lung base are likely due to a combination of small right pleural effusion with overlying atelectasis and possible consolidation. Slightly increased compared to the prior exam. Left lung is clear. Hypoaeration of the lungs May suggest emphysematous changes. Portions of the lung apices are excluded from the [id number] of the exam. No other significant interval change. IMPRESSION: Small right pleural effusion with overlying atelectasis and/or consolidation. Slightly increased compared to the prior exam. ATED BY: HILARIO ATWOOD DO DICTATED DATE/TIME: 01/03/250 SIGNED BY: HILARIO ATWOOD DO SIGNED DATE/TIME: 01/03/250 CC: Images Reviewed?: Images reviewed and evaluated by me Time of 1ST Reevaluation: 15:32 Reevaluation 1ST: Unchanged Patient Education/Counseling: Diagnosis, Treatment Family Education/Counseling: No Family Present SEPSIS Sepsis Screen Physician Orders Electrocardigram (01/03/25 14:31) Chest Portable (01/03/25 14:31) Electrocardigram (01/03/25 14:31) Troponin-I Hs (01/03/25 15:31) Troponin-I Hs (01/03/25 17:31) Electrocardigram (01/03/25 15:31) Electrocardigram (01/03/25 17:31) Abg W/ Co-Ox (01/03/25 15:04) BIPAP (01/03/25 15:04) Abg W/ Co-Ox (01/03/25 16:30) Lactated Ringer's (01/03/25 15:45) Blood Culture (01/03/25 15:35) Lactic Acid W/ Reflex Order (01/03/25 16:00) Lactic Acid W/ Reflex Order (01/03/25 18:00) Cefepime 1gm/50ml (Maxipime 1gm/50ml) (01/03/25 15:35) Notify Md If Map <65 Or Bp<90 (01/03/25 15:35) If Map<65 Start Vasopressor (01/03/25 15:35) Sepsis Reassesment After Fluid (01/03/25 16:35) Vital Signs Date Time Temp Pulse Resp B/P (MAP) Pulse Ox O2 Delivery O2 Flow Rate FiO2 01/03/25 15:45 91 01/03/25 15:13 100 Bi-Pap+ 30 30 01/03/25 15:06 107 106/73 Nasal BiPAP Mask 30 01/03/25 14:48 107 19 106/73 (84) 100 01/03/25 14:28 127 19 194/135 (154) 100 01/03/25 14:28 127 01/03/25 14:22 98.2 110 20 210/100 78 98.2 Laboratory Tests Test 01/03/25 14:40 White Blood Count 16.6 10^3/uL (4.4-10.8) H Departure 1 Departure Time of Disposition: 15:54 (Patient presented with acute shortness of breath concerning for acute on chronic COPD Exacerbation, Pneumonia, ACS, CHF, Pne umothorax. Less likely PE, Dissection. Data: 1. I ordered and reviewed the result of at least 3 labs including a CBC, BMP, and Troponin. 2. I independently interpreted the following tests: Chest X-ray shows .Risk:This patient has a high risk of morbidity due to further diagnostic testing or treatment and may suffer from respiratory or cardiac etiology . Workup reveals a likely COPD Exacerbation and patient should be admitted for further workup. and possible expert consultation.) Impression: Primary Impression: Acute and chronic respiratory failure with hypoxia Additional Impressions: COPD with acute exacerbation Seizure Disposition: ADMITTED INPATIENT Admit to: [facility] Condition: Guarded Critical Care Note Critical Care Time?: Yes Critical care comment: Acute on chronic respiratory failure Authorized and Performed by: Sunitha Mcgowan MD Total critical care time: Approximately 39 minutes Due to a high probability of clinically significant, life threatening deterioration, the patient required my highest level of preparedness to intervene emergently and I personally spent this critical care time directly and personally managing the patient. This critical care time included obtaining a history; examining the patient; pulse oximetry; ordering and review of studies; arranging urgent treatment with development of a management plan; evaluation of patient's response to treatment; frequent reassessment; and, discussions with other providers. This critical care time was performed to assess and manage the high probability of imminent, life-threatening deterioration that could result in multi-organ failure. It was exclusive of separately billable procedures and treating other patients and teaching time. Please see my other sections and the rest of the note for further information on patient assessment and treatment. Stability Stability form required: No Heart Score Heart Score: Heart Score Response (Comments) Value History N/A 0 EKG N/A 0 Age N/A 0 Risk Factors N/A 0 Troponin N/A 0 Total 0 I personally scribed for SUNITHA MCGOWAN MD ([email or web address]) on 01/03/25 at 14:45. Electronically submitted by Ashok Michelle ([email or web address]). I personally scribed for SUNITHA MCGOWAN MD ([email or web address]) on 01/03/25 at 15:31. Electronically submitted by Ashok Michelle ([email or web address]). SUNITHA MCGOWAN MD Jan 03, 2025 14:45
[2025-01-03 14:52] LABS: Hemoglobin 14.3 g/dL (13.5-17.5); Nucleated Red Blood Cells % 0.1 %
[2025-01-03 14:54] LABS: Hematocrit 43.4 % (41.0-53.0); Mean Corpuscular Hemoglobin 27.4 pg (28.0-32.0); Mean Corpuscular Volume 83.1 fL (80.0-100.0)
[2025-01-03 15:00] LABS: Calcium 9.8 mg/dL (8.7-10.4); Chloride 104 mmol/L (98-107); Potassium 3.7 mmol/L (3.5-5.1)
[2025-01-03 15:01] LABS: Anion Gap 11 (5-15); Carbon Dioxide 30 mmol/L (20-31)
[2025-01-03 15:06] LABS: BUN/Creatinine Ratio 15.7 (10.0-20.0); Blood Urea Nitrogen 20 mg/dL (9-23)
[2025-01-03 15:07] LABS: Glucose 162 mg/dL (74-106); Sodium 145 mmol/L (136-145)
--- NOTE | 2025-01-03 15:23 | DVH ---
CLINICAL INFORMATION: Shortness of breath. TECHNIQUE: Single AP portable chest radiograph was obtained. COMPARISON: XY CHEST PORTABLE on DOS: 12/27/24, XY CHEST XRAY 1 VIEW on DOS: 12/25/24, XY CHEST XRAY 1 VIEW on DOS: 12/01/24 FINDINGS: Opacities in the right lung base are likely due to a combination of small right pleural effusion with overlying atelectasis and possible consolidation. Slightly increased compared to the prior exam. Left lung is clear. Hypoaeration of the lungs May suggest emphysematous changes. Portions of the lung apices are excluded from the [id number] of the exam. No other significant interval change. IMPRESSION: Small right pleural effusion with overlying atelectasis and/or consolidation. Slightly increased compared to the prior exam.
[2025-01-03 15:58] VITALS: BP 106/73; PULSE 91; RESP 30; TEMP 98.2; O2SAT 100
[2025-01-03] MEDS: CEFEPIME 1GM/50ML 50 ML IV STA (16:24)
[2025-01-03 16:25] LABS: Base Excess -3.0 mmol/L (-2.0-3.0)
[2025-01-03] MEDS: LACTATED RINGER'S 2,350 ML IV ONE (16:25)
[2025-01-03 16:58] LABS: Base Excess 2.5 mmol/L (-2.0-3.0)
[2025-01-03] MEDS ORDERED: NITROGLYCERIN 0.4 MG SL TAB SL PRN (17:00)
[2025-01-03] MEDS ORDERED: MORPHINE SULFATE INJ 2 MG/ml SYRG IV PRN (17:00)
--- NOTE | 2025-01-03 17:40 | ECG ---
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
[2025-01-03] MEDS ORDERED: CEFEPIME 1GM/50ML 50 ML IV ONE (17:45)
[2025-01-03] MEDS: methylPREDNISolone SOD SUCC 125 MG/2 ML VL IV ONE (18:21)
[2025-01-03 18:43] LABS: Urine Protein, UAD Negative (Negative)
[2025-01-03 18:45] VITALS: PULSE 96; RESP 18; O2SAT 96
[2025-01-03] MEDS: IPRATROPIUM BROM 0.5 MG/2.5ML INH SOL NEB SCH (19:01)
[2025-01-03] MEDS: ALBUTEROL SULF 2.5 MG/0.5ML(0.5%) NEB SOLN NEB SCH (19:01)
[2025-01-03 19:02] VITALS: PULSE 97; RESP 20; O2SAT 99
--- NOTE | 2025-01-03 19:08 | DVHHPRES ---
History of Present Illness Resident Creating Document: ALTON AYON RESIDENT History of Present Illness Patient is a 69-year-old male with a medical history of hypertension, PE, COPD on 2 L home oxygen, lung cancer status post lobectomy, CVA, previous history of SC presented to the ED with a chief complaint of worsening shortness of breath for 1 day. Patient was recently seen in this hospital a week ago and was treated for COPD exacerbation and sent home on steroid and antibiotic but reportedly he started to feel short of breath yesterday which was getting worse and EMS had to be called who brought him to the hospital for further evaluation. Patient denied any fever, chills, cough or expectoration, no recent sick contacts On arrival patient was put on BiPAP because of respiratory distress, ABG showed mixed respiratory acidosis and metabolic acidosis. Past medical history as per HPI Past surgical history: Lobectomy for lung cancer, right patella surgery Social history: Patient denies current smoking, alcohol, drug use but was an ex heavy smoker Home medications: Eliquis 5 mg b.i.d., aspirin 81 daily, hydrochlorothiazide 25 daily, albuterol inhaler, nebulizer Review of Systems Review of Systems Patient seen and examined with the bedside Was taken off BiPAP and repeat ABG improved with a decreased CO2 Reports shortness of breath has improved, able to talk in full sentences Denies chest pain, fever, chills, cough, nausea or vomiting Allergies: Coded Allergies: NO KNOWN ALLERGIES (Unverified , 03/24/22) Medications Current Medications Medications Dose Ordered Sig/Arnaldo Route Start Time Stop Time Status Last Admin Dose Admin Cefepime HCl 50 ml @ 12.5 mls/hr ONCE STAT IV 01/03/25 15:35 01/03/25 19:34 01/03/25 16:24 12.5 MLS/HR Nitroglycerin 0.4 mg Q5MINP PRN SL 01/03/25 17:00 Morphine Sulfate 2 mg Q30M PRN IV 01/03/25 17:00 Albuterol 2.5 mg Q6HR NEB 01/03/25 18:00 01/03/25 19:01 2.5 MG Ipratropium [place] 0.5 mg Q6HR NEB 01/03/25 18:00 01/03/25 19:01 0.5 MG Methylprednisolone Sodium Succinate 40 mg BID IV 01/04/25 10:00 Cefepime HCl 50 ml @ 12.5 mls/hr Q8H IV 01/04/25 00:00 Doxycycline Monohydrate 100 mg Q12HR PO 01/03/25 22:00 Enoxaparin Sodium 80 mg Q12HR SC 01/03/25 22:00 Aspirin 81 mg DAILY PO 01/04/25 10:00 Exam Vital Signs Vital Signs Date Time Temp Pulse Resp B/P (MAP) Pulse Ox O2 Delivery O2 Flow Rate FiO2 01/03/25 19:02 97 20 99 01/03/25 18:00 127/64 (85) 01/03/25 16:00 97.9 97.9 01/03/25 15:58 30 01/03/25 15:13 Bi-Pap+ Exam Skin - Patients skin is warm and dry. HEENT - normocephalic, atraumatic, moist mucous membranes, no pallor, no icterus Neck - full ROM, no LAD, JVP slightly elevated Pulmonary - B/L decreased breath sounds with mild diffuse wheezing, very diminished breath sounds in the right lower cardiovascular - regular S1,S2 heard, no added sounds, no murmurs heard. peripheral pulses normal radial 2+, pedal 2+. capillary refill normal <2 secs. GI - soft, nontender abdomen. no hepatospleenomegaly. Bowel sounds normoactive Neurological - Patient is A/O X 4 . Bilateral upper extremity strength 5/5, bilateral lower extremity strength 5/5, no facial droop, normal speech, no tremor, no sensory deficiets. Labs/Xrays Labs Test 01/03/25 19:00 01/03/25 18:00 01/03/25 17:41 01/03/25 16:20 Range/Units Urine Color Light-yellow Yellow Urine Clarity Clear Clear Urine pH 6.5 5.0-9.0 Urine Specific [place] 1.009 1.001-1.035 Urine Protein Negative Negative Urine Ketones Negative Negative Urine Blood Negative Negative /uL Urine Nitrite Negative Negative Urine Bilirubin Negative Negative Urine Urobilinogen Normal Negative mg/dL Urine Leukocyte Esterase Negative Negative /uL Urine RBC <1 0 - 3 /hpf Urine Microscopic WBC 2 0-3 /HPF Urine Squamous Epithelial Cells Few <5 /hpf Urine Bacteria None seen None Seen /hpf Urine Hyaline Casts Few 0 - 2 /lpf Urine Glucose Normal Normal mg/dL Troponin I High Sensitivity 17 </=54 ng/L Blood Gas Specimen Type Arterial Blood Gas Sample Site Left radial Blood Gas Patient Temperature 37.0 Arterial Blood Date Drawn [id number] Arterial Blood pH 7.373 7.350-7.450 Arterial Blood Partial Pressure CO2 50.5 H 35.0-48.0 mmHg Arterial Blood Partial Pressure O2 94.6 83.0-108.0 mmHg Arterial Blood HCO3 28.7 H 21.0-28.0 mmol/L Arterial Blood Oxygen Saturation 97.0 94.0-98.0 % Arterial Blood Base Excess 2.5 -2.0-3.0 mmol/L Arterial Blood Oxyhemoglobin 95.4 94.0-98.0 % Arterial Blood Carboxyhemoglobin 1.1 0.5-1.5 % Arterial Blood Methemoglobin 0.6 0.0-1.5 % Chema Test Yes Blood Gas Total Hemoglobin 14.40 13.5-17.5 g/dL Blood Gas Modality Mask - bipap FiO2 % 30.0 Blood Gas EPAP 6 Blood Gas IPAP 16 Test 01/03/25 16:00 01/03/25 14:40 01/03/25 14:36 Range/Units Lactic Acid Level 1.7 0.4-2.0 mmol/L White Blood Count 16.6 H 4.4-10.8 10^3/uL Red Blood Count 5.22 4.5-5.90 10^6/uL Hemoglobin 14.3 13.5-17.5 g/dL Hematocrit 43.4 41.0-53.0 % Mean Corpuscular Volume 83.1 80.0-100.0 fL Mean Corpuscular Hemoglobin 27.4 L 28.0-32.0 pg Mean Corpuscular Hemoglobin Concent 33.0 32.0-36.0 g/dL Red Cell Distribution Width 18.8 H 11.8-14.3 % Platelet Count 306 140-450 10^3/uL Mean Platelet Volume 7.9 6.9-10.8 fL Neutrophils (%) (Auto) 59.3 37.0-80.0 % Lymphocytes (%) (Auto) 28.1 10.0-50.0 % Monocytes (%) (Auto) 9.0 0.0-12.0 % Eosinophils (%) (Auto) 2.4 0.0-7.0 % Basophils (%) (Auto) 1.2 0.0-2.0 % Neutrophils # (Auto) 9.8 H 1.6-8.6 10 ^3/uL Lymphocytes # (Auto) 4.7 0.4-5.4 10 ^3/uL Monocytes # (Auto) 1.5 H 0-1.3 10 ^3/uL Eosinophils # (Auto) 0.4 0-0.8 10 ^3/uL Basophils # (Auto) 0.2 0-0.2 10 ^3/uL Nucleated Red Blood Cells 0.1 % Sodium Level 145 136-145 mmol/L Potassium Level 3.7 3.5-5.1 mmol/L Chloride Level 104 98-107 mmol/L Carbon Dioxide Level 30 20-31 mmol/L Anion Gap 11 5-15 Blood Urea Nitrogen 20 9-23 mg/dL Creatinine 1.27 0.700-1.30 mg/dL Glomerular Filtration Rate Calc 61 >90 mL/min BUN/Creatinine Ratio 15.7 10.0-20.0 Serum Glucose 162 H 74-106 mg/dL Calcium Level 9.8 8.7-10.4 mg/dL B-Type Natriuretic Peptide 29.21 0-100 pg/mL Blood Gas Liter Flow 15.00 Blood Gas Critical Value Read Back yes Blood Gas Notified Whom Blood Gas Notified Time [id number] Blood Gas Notified By rn emergency room carina SEPSIS Sepsis Screen Date sepsis recognized/suspect: Jan 03, 2025 Time Sepsis recognized/suspect: 1421 Recent Procedure: No On Antibiotic Therapy: No Respiratory Rate >20: No Heart Rate >90: Yes Temp<36 C (96.8 F) or >38.3 C: No SBP <90 or MAP <65 mmHG: No New Acute Mental Status Change: No Is the patient on CPAP, BIPAP,: No Physician Orders Electrocardigram (01/03/25 14:31) Chest Portable (01/03/25 14:31) Electrocardigram (01/03/25 14:31) Electrocardigram (01/03/25 15:31) Electrocardigram (01/03/25 17:31) Abg W/ Co-Ox (01/03/25 15:04) BIPAP (01/03/25 15:04) Abg W/ Co-Ox (01/03/25 16:30) Blood Culture (01/03/25 15:35) Cefepime 1gm/50ml (Maxipime 1gm/50ml) (01/03/25 15:35) Notify Md If Map <65 Or Bp<90 (01/03/25 15:35) If Map<65 Start Vasopressor (01/03/25 15:35) Sepsis Reassesment After Fluid (01/03/25 16:35) Admit (01/03/25 16:56) Nitroglycerin Sublingual (Ntrostat Subli (01/03/25 17:00) Morphine Sulfate Injection (01/03/25 17:00) Oxygen By Nasal Cannula (01/03/25 16:56) Stat Ekg For Chest Pain (01/03/25 16:56) Notify Md Of Changes From Base (01/03/25 16:56) Negative Developer For 24 Hours (01/03/25 16:56) Emergency Dysrhythmia Protocol (01/03/25 16:56) Albuterol Medneb (Ventolin Medneb) (01/03/25 18:00) Ipratropium Medneb (Atrovent Medneb) (01/03/25 18:00) Methylprednisolone Sod Succ (Solu Medrol (01/04/25 10:00) Doxycycline Tablet (Vibramycin Tablet) (01/03/25 22:00) Respiratory Culture W/ Gs (01/03/25 17:12) Covid19 Antigen Freda (01/03/25 ) Rapid Influenza A&B (01/03/25 17:12) Cardiac Diet-2gna,Lofat,Lochol (01/03/25 Dinner) Echo 2d Mode Cardiac Dop (01/03/25 17:12) Aspirin Tablet (01/04/25 10:00) Enoxaparin Sodium (Lovenox) (01/03/25 22:00) Cefepime 1gm/50ml (Maxipime 1gm/50ml) (01/04/25 00:00) Vital Signs Date Time Temp Pulse Resp B/P (MAP) Pulse Ox O2 Delivery O2 Flow Rate FiO2 01/03/25 19:02 97 20 99 01/03/25 18:45 96 18 96 01/03/25 18:00 95 21 127/64 (85) 99 01/03/25 16:00 91 01/03/25 16:00 97.9 87 20 112/66 (81) 100 97.9 01/03/25 15:58 98.2 91 30 106/73 100 30 98.2 01/03/25 15:45 91 01/03/25 15:13 100 Bi-Pap+ 30 30 01/03/25 15:06 107 106/73 Nasal BiPAP Mask 30 01/03/25 14:48 107 19 106/73 (84) 100 01/03/25 14:28 127 19 194/135 (154) 100 01/03/25 14:28 127 01/03/25 14:22 98.2 110 20 210/100 78 98.2 Laboratory Tests Test 01/03/25 14:40 01/03/25 16:00 White Blood Count 16.6 10^3/uL (4.4-10.8) H Lactic Acid Level 1.7 mmol/L (0.4-2.0) Medications Medications Dose Ordered Sig/Arnaldo Route Start Time Stop Time Status Last Admin Dose Admin Albuterol 2.5 mg Q6HR NEB 01/03/25 18:00 01/03/25 19:01 2.5 MG Cefepime HCl 50 ml @ 12.5 mls/hr ONCE STAT IV 01/03/25 15:35 01/03/25 19:34 01/03/25 16:24 12.5 MLS/HR Ipratropium [place] 0.5 mg Q6HR NEB 01/03/25 18:00 01/03/25 19:01 0.5 MG Lactated Ringer's 2,350 ml @ 2,350 mls/hr ONCE ONCE IV 01/03/25 15:45 01/03/25 17:24 DC 01/03/25 16:25 2,350 MLS/HR Methylprednisolone Sodium Succinate 62.5 mg ONCE ONCE IV 01/03/25 17:30 01/03/25 17:31 DC 01/03/25 18:21 62.5 MG Assessment/Plan Assessment/Plan Acute on chronic hypoxic respiratory failure COPD exacerbation likely due to pneumonia Pneumonia likely due to Gram +/- bacteria Right pleural effusion H/o PE History of lung cancer status post lobectomy - on cefepime and doxycycline - Solu-Medrol b.i.d. - duo nebs q.6 hour - therapeutic dose Lovenox Previous history of SC Previous history of CVA - aspirin Goals of care discussed with the patient for over 17 minutes. Code status: full code Time spent: 33 minutes Plan discussed with Dr. Mina Plan discussed with: Patient, Other (RN) My Orders Orders - ALTON AYON RESIDENT Procedure Category Date Status Time Admit ADMIT 01/03/25 Transmitted 16:56 Nitroglycerin PHA 01/03/25 In Process Sublingual (Ntrostat 17:00 Morphine Sulfate PHA 01/03/25 In Process Injection 17:00 Oxygen By Nasal RT 01/03/25 Transmitted Cannula 16:56 Stat Ekg For Chest LINDSAY 01/03/25 In Process Pain 16:56 Notify Md Of Changes LINDSAY 01/03/25 In Process From Base 16:56 Negative Developer For LINDSAY 01/03/25 In Process 24 Hours 16:56 Emergency Dysrhythmia LINDSAY 01/03/25 In Process Protocol 16:56 Albuterol Medneb PHA 01/03/25 In Process (Ventolin Medneb) 18:00 Ipratropium Medneb PHA 01/03/25 In Process (Atrovent Medneb) 18:00 Methylprednisolone PHA 01/04/25 In Process Sod Succ (Solu Medrol 10:00 Doxycycline Tablet PHA 01/03/25 In Process (Vibramycin Tablet) 22:00 Respiratory Culture ANNAMARIA 01/03/25 Logged W/ Gs 17:12 Covid19 Antigen Freda LAB 01/03/25 In Process Rapid Influenza A&B LAB 01/03/25 In Process 17:12 Cardiac DIET 01/03/25 Transmitted Diet-2gna,Lofat,Lochol Dinner Echo 2d Mode Cardiac US 01/03/25 Logged DOP 17:12 Aspirin Tablet PHA 01/04/25 In Process 10:00 Enoxaparin Sodium PHA 01/03/25 In Process (Lovenox) 22:00 Cefepime 1gm/50ml PHA 01/04/25 In Process (Maxipime 1gm/50ml) 00:00 Date of Service: Jan 03, 2025 Billing Provider: JOSE L MINA MD Common Visit Codes: [id number] INP/OBS CARE (HIGH) Secondary Visit Codes: [id number] CARE PLAN 30 MINUTES ALTON AYON Jan 03, 2025 19:08 JOSE L MINA MD Jan 04, 2025 23:09
[2025-01-03 19:41] LABS: COVID19 ANTIGEN SOFIA FIA NEGATIVE (NEGATIVE)
[2025-01-03] MEDS: DOXYCYCLINE 100 MG TAB/CAP PO SCH (22:45)
[2025-01-03] MEDS: ENOXAPARIN SOD 80 MG/0.8ML SYRINGE SC SCH (22:46)
[2025-01-03 23:42] VITALS: PULSE 90; RESP 18; O2SAT 98
[2025-01-03 23:50] VITALS: PULSE 88; RESP 20; O2SAT 98
[2025-01-03] MEDS: CEFEPIME 1GM/50ML 50 ML IV SCH (23:53)
[2025-01-04] VITALS (10 sets, daily range): BP systolic 133; BP diastolic 68; PULSE 78–95; RESP 12–20; TEMP 97.9; O2SAT 96–100
[2025-01-04] MEDS ORDERED: hydrALAZINE HCL 20 MG/ML VL IV ONE (02:30)
[2025-01-04] MEDS: predniSONE 20 MG TAB PO SCH (09:56)
[2025-01-04] MEDS ORDERED: methylPREDNISolone SOD SUCC 40 MG/ML VL IV SCH (10:00)
[2025-01-04] MEDS: PIPERACILLIN-TAZOB 3.375GM 100 ML IV SCH (14:22)
--- NOTE | 2025-01-04 19:19 | DVHSR ---
APPROVED REPORT EXAM: Two-dimensional and M-mode echocardiogram with Doppler and color Doppler. Blood Pressure: 118/64 mmHg INDICATION Dyspnea COPD RISK FACTORS Height: 6', Weight: 170 DIMENSIONS LVDd 4.0 (3.8-5.7cm) LA (2D) 3.4 (1.9-4.0cm) Aortic Root (2.0-3.7cm) LVDs 2.7 (2.5-4.0cm) LA (MM) (1.9-4.0cm) Aortic Cusp Exc 1.5 (1.5-2.0cm) EF (%) 60.0 (55-70%) Rt. Atrium 4.6 (1.9-4.0cm) Asc. Aorta cm IVSd 1.1 (0.7-1.1cm) RV (D) 3.9 (1.8-2.4cm) Mitral Valve Mitral Mitral Stenosis E wave 0.62m/s MV Mean GR. mmHg A wave 0.83m/s MV Peak GR. mmHg E/A ratio 0.7 2D MVA cm2 DECEL Time 172ms PRESS 1/2 Time ms Aortic Valve Aortic Valve Aortic Stenosis V1 0.94m/s AO Mean GR. 2mmHg V2 1.02m/s AO Peak GR. 4mmHg LVOT Diameter 2.0 (1.8-2.4cm) Doppler AURELIO 2.89cm2 Other Information Quality : Technically Limited Rhythm : Technically limited study due to body habitus. Conclusion Sinus rhythm. Off axis views. There appears to be normal chamber sizes. Mild aortic sclerosis without stenosis. Left ventricular function is preserved at 60% with normal right ventricular function. Dopplers unremarkable. No pericardial effusion masses or vegetations.
--- NOTE | 2025-01-04 20:01 | DVHPNRES ---
Progress Note Date Seen: Jan 04, 2025 Resident Creating Document: STEFFI RODRIGUEZ RESIDENT Medical Necessity Reason Pt with a Central, PICC or Fol: No Subjective Review of Systems [place] this is a 69-year-old male with a past medical history of hypertension, PE, COPD on 2 L home oxygen, lung cancer status post lobectomy right side, CVA, ME presented to the ED with the chief complaint of shortness of breaths for 1 day. Patient mentions he uses oxygen and his albuterol inhaler at home on and off as needed. Patient was recently hospitalized 1 week back, when he was treated for COPD exacerbation and discharged home on oral steroids and doxycycline. He denied any fever, chills, cough or expectoration. On arrival to the ED, ABG showed mixed respiratory acidosis and metabolic acidosis, for which patient was put on BiPAP for the respiratory distress. On evaluation today, patient was breathing comfortably on 2 L oxygen by nasal cannula. Past medical history: hypertension, PE, COPD on 2 L home oxygen, lung cancer status post lobectomy right side, CVA, ME Past surgical history: Lobectomy for lung cancer, right patella surgery Social & Personal history: Patient denies current smoking, alcohol, drug use but was an ex heavy smoker Home medications: Eliquis 5 mg b.i.d., aspirin 81 daily, hydrochlorothiazide 25 daily, albuterol inhaler, nebulizer Allergies: No known allergy Patient seen and examined at bedside. Patient is alert and oriented to time, place person and responding to all questions. Eyes: No Pain, No Vision change, No Conjunctivae inflammation, No Eyelid inflammation, No Redness ENT: No Ear pain, No Ear discharge, No Nose pain, No Nose discharge, No Nose congestion, No Mouth pain, No Mouth swelling, No Throat pain, No Throat swelling Cardiovascular: No Chest Pain, No Palpitations, No Orthopnea, No Paroxysmal No Dyspnea, No Edema, No Lt Headedness Respiratory: No Cough, No Dry, No Shortness of breath, No SOB with exertion, No Wheezing, No Hemoptysis, No Pleuritic Pain, No Sputum Gastrointestinal: No Nausea, No Vomiting, No Abdominal Pain, No Diarrhea, No Constipation, No Melena, No Hematochezia Genitourinary: No Dysuria, No Frequency, No Incontinence, No Hematuria, No Retention Objective vital signs Vital Sign Date Time Temp Pulse Resp B/P (MAP) Pulse Ox O2 Delivery O2 Flow Rate FiO2 01/04/25 18:28 81 15 99 01/04/25 18:22 Nasal Cannula 2.0 01/04/25 18:22 28 01/04/25 18:00 118/71 (87) 01/04/25 14:00 98.1 98.1 Total Intake and Output 01/03/25 01/03/25 01/04/25 15:00 23:00 07:00 Intake Total 1000 ml Balance 1000 ml medications Current Medications Medications Dose Ordered Sig/Arnaldo Route Start Time Stop Time Status Last Admin Dose Admin Nitroglycerin 0.4 mg Q5MINP PRN SL 01/03/25 17:00 Morphine Sulfate 2 mg Q30M PRN IV 01/03/25 17:00 Albuterol 2.5 mg Q6HR NEB 01/03/25 18:00 01/04/25 18:22 2.5 MG Ipratropium [place] 0.5 mg Q6HR NEB 01/03/25 18:00 01/04/25 18:22 0.5 MG Doxycycline Monohydrate 100 mg Q12HR PO 01/03/25 22:00 01/04/25 09:56 100 MG Enoxaparin Sodium 80 mg Q12HR SC 01/03/25 22:00 01/04/25 09:56 80 MG Aspirin 81 mg DAILY PO 01/04/25 10:00 01/04/25 09:56 81 MG Prednisone 40 mg BID PO 01/04/25 10:00 01/04/25 09:56 40 MG Piperacillin Sod/ Tazobactam Sod 100 ml @ 25 mls/hr Q8HR IV 01/04/25 14:00 01/04/25 14:22 25 MLS/HR Examination Skin - Patients skin is warm and dry. HEENT - normocephalic, atraumatic, moist mucous membranes, no pallor, no icterus Neck - full ROM, no LAD, JVP slightly elevated Pulmonary - B/L decreased breath sounds with mild diffuse wheezing, very diminished breath sounds in the right lower cardiovascular - regular S1,S2 heard, no added sounds, no murmurs heard. peripheral pulses normal radial 2+, pedal 2+. capillary refill normal <2 secs. GI - soft, nontender abdomen. no hepatospleenomegaly. Bowel sounds normoactive Neurological - Patient is A/O X 4 . Bilateral upper extremity strength 5/5, bilateral lower extremity strength 5/5, no facial droop, normal speech, no tremor, no sensory deficiets. laboratory and microbiology Laboratory Tests 01/03/25 14:40 Test 01/03/25 14:40 Range/Units Serum Glucose 162 H 74-106 mg/dL Microbiology Date/Time Source Procedure Growth Status 01/04/25 07:40 Nose MRSA Screen - Final Complete 01/03/25 16:16 Blood Blood Culture - Preliminary NO GROWTH AFTER 24 HOURS OF INCUBATION. Resulted Labs and/or images reviewed: Labs reviewed by me, Image(s) reviewed by me Problem List/Assessment/Plan Problem List/Assessment/Plan # Acute on chronic hypoxic respiratory failure # COPD exacerbation likely due to pneumonia # Pneumonia likely due to Gram +/- bacteria # Right pleural effusion # H/o PE # History of lung cancer status post lobectomy # Ruled out ACS # Ruled out CHF exacerbation - on zosyn and doxycycline - prednisone 40 mg b.i.d. p.o. - duo nebs q.6 hour - therapeutic dose Lovenox - tropes 7, 8, 17 - BNP 29.21 - echo-LVEF 60% - # Previous history of ME # Previous history of CVA - aspirin Goals of care discussed with the patient for over 17 minutes. Code status: full code Plan discussed with Dr. Mina Plan discussed with: Patient My Orders My Orders Orders - STEFFI RODRIGUEZ Procedure Category Date Status Time Prednisone Tablet PHA 01/04/25 In Process 10:00 Piperacillin-Tazob PHA 01/04/25 In Process 3.375gm (Zosyn 3.375g 14:00 Date of Service: Jan 04, 2025 Billing Provider: JOSE L MINA MD Common Visit Codes: [id number] INP/OBS CARE(HIGH) STEFFI RODRIGUEZ RESIDENT Jan 04, 2025 20:01 JOSE L MINA MD Jan 04, 2025 23:08
[2025-01-05] VITALS (14 sets, daily range): BP systolic 116–135; BP diastolic 64–85; PULSE 67–92; RESP 15–20; TEMP 97.1–98.9; O2SAT 90–100
--- NOTE | 2025-01-05 10:05 | ECG ---
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
[2025-01-05] MEDS: ENOXAPARIN SOD 100 MG/1 ML SYRINGE SC ONE (10:55)
[2025-01-05 13:22] LABS: Hematocrit 41.3 % (41.0-53.0); Hemoglobin 13.0 g/dL (13.5-17.5); Mean Corpuscular Hemoglobin 26.4 pg (28.0-32.0); Mean Corpuscular Volume 83.6 fL (80.0-100.0); Nucleated Red Blood Cells % 0.1 %
[2025-01-05 13:28] LABS: Chloride 104 mmol/L (98-107); Potassium 5.0 mmol/L (3.5-5.1); Sodium 141 mmol/L (136-145)
[2025-01-05 13:29] LABS: Anion Gap 8 (5-15); Calcium 9.7 mg/dL (8.7-10.4); Carbon Dioxide 29 mmol/L (20-31)
[2025-01-05 13:34] LABS: BUN/Creatinine Ratio 15.2 (10.0-20.0); Blood Urea Nitrogen 16 mg/dL (9-23)
[2025-01-05 13:37] LABS: Glucose 135 mg/dL (74-106)
--- NOTE | 2025-01-05 14:54 | DVHPNRES ---
Progress Note Date Seen: Jan 05, 2025 Resident Creating Document: STEFFI RODRIGUEZ RESIDENT Medical Necessity Reason Pt with a Central, PICC or Fol: No Subjective Review of Systems [place] this is a 69-year-old male with a past medical history of hypertension, PE, COPD on 2 L home oxygen, lung cancer status post lobectomy right side, CVA, [place] presented to the ED with the chief complaint of shortness of breaths for 1 day. Patient mentions he uses oxygen and his albuterol inhaler at home on and off as needed. Patient was recently hospitalized 1 week back, when he was treated for COPD exacerbation and discharged home on oral steroids and doxycycline. He denied any fever, chills, cough or expectoration. On arrival to the ED, ABG showed mixed respiratory acidosis and metabolic acidosis, for which patient was put on BiPAP for the respiratory distress. On evaluation today, patient was breathing comfortably on 2 L oxygen by nasal cannula. Past medical history: hypertension, PE, COPD on 2 L home oxygen, lung cancer status post lobectomy right side, CVA, [place] Past surgical history: Lobectomy for lung cancer, right patella surgery Social & Personal history: Patient denies current smoking, alcohol, drug use but was an ex heavy smoker Home medications: Eliquis 5 mg b.i.d., aspirin 81 daily, hydrochlorothiazide 25 daily, albuterol inhaler, nebulizer Allergies: No known allergy Patient seen and examined at bedside. Patient is alert and oriented to time, place person and responding to all questions. Eyes: No Pain, No Vision change, No Conjunctivae inflammation, No Eyelid inflammation, No Redness ENT: No Ear pain, No Ear discharge, No Nose pain, No Nose discharge, No Nose congestion, No Mouth pain, No Mouth swelling, No Throat pain, No Throat swelling Cardiovascular: No Chest Pain, No Palpitations, No Orthopnea, No Paroxysmal No Dyspnea, No Edema, No Lt Headedness Respiratory: No Cough, No Dry, No Shortness of breath, No SOB with exertion, No Wheezing, No Hemoptysis, No Pleuritic Pain, No Sputum Gastrointestinal: No Nausea, No Vomiting, No Abdominal Pain, No Diarrhea, No Constipation, No Melena, No Hematochezia Genitourinary: No Dysuria, No Frequency, No Incontinence, No Hematuria, No Retention 01/05/25- The patient was seen at bedside today. He was breathing comfortably on 2 L oxygen by nasal cannula, with no respiratory distress. White count today 17.6. We will continue with the same antibiotics and mednebs. Step up therapy for COPD on discharge was discussed with the patient. Possible discharge tomorrow. Objective vital signs Vital Sign Date Time Temp Pulse Resp B/P (MAP) Pulse Ox O2 Delivery O2 Flow Rate FiO2 01/05/25 12:52 98.6 89 16 120/68 (85) 100 98.6 01/05/25 11:12 Nasal Cannula 4.0 01/05/25 11:12 36 Total Intake and Output 01/04/25 01/04/25 01/05/25 15:00 23:00 07:00 Intake Total 100 ml 475 ml Output Total 500 ml Balance 100 ml -25 ml medications Current Medications Medications Dose Ordered Sig/Arnaldo Route Start Time Stop Time Status Last Admin Dose Admin Nitroglycerin 0.4 mg Q5MINP PRN SL 01/03/25 17:00 Morphine Sulfate 2 mg Q30M PRN IV 01/03/25 17:00 Albuterol 2.5 mg Q6HR NEB 01/03/25 18:00 01/05/25 11:12 2.5 MG Ipratropium [place] 0.5 mg Q6HR NEB 01/03/25 18:00 01/05/25 11:12 0.5 MG Doxycycline Monohydrate 100 mg Q12HR PO 01/03/25 22:00 01/05/25 10:00 100 MG Aspirin 81 mg DAILY PO 01/04/25 10:00 01/05/25 10:00 81 MG Prednisone 40 mg BID PO 01/04/25 10:00 01/05/25 10:00 40 MG Piperacillin Sod/ Tazobactam Sod 100 ml @ 25 mls/hr Q8HR IV 01/04/25 14:00 01/05/25 06:43 25 MLS/HR Enoxaparin Sodium 60 mg Q12HR SC 01/05/25 22:00 Examination Skin - Patients skin is warm and dry. HEENT - normocephalic, atraumatic, moist mucous membranes, no pallor, no icterus Neck - full ROM, no LAD, JVP slightly elevated Pulmonary - B/L decreased breath sounds with mild diffuse wheezing, very diminished breath sounds in the right lower cardiovascular - regular S1,S2 heard, no added sounds, no murmurs heard. peripheral pulses normal radial 2+, pedal 2+. capillary refill normal <2 secs. GI - soft, nontender abdomen. no hepatosplenomegaly. Bowel sounds normoactive Neurological - Patient is A/O X 4 . right upper extremity strength 5/5, left upper extremity strength 4/5, bilateral lower extremity strength 5/5, no facial droop, normal speech, no tremor, no sensory deficits. laboratory and microbiology Laboratory Tests 01/05/25 12:54 Test 01/05/25 12:54 Range/Units Serum Glucose 135 H 74-106 mg/dL Microbiology Date/Time Source Procedure Growth Status 01/04/25 07:40 Nose MRSA Screen - Final Complete 01/03/25 16:16 Blood Blood Culture - Preliminary NO GROWTH AFTER 24 HOURS OF INCUBATION. Resulted Labs and/or images reviewed: Labs reviewed by me, Image(s) reviewed by me Problem List/Assessment/Plan Problem List/Assessment/Plan # Acute on chronic hypoxic respiratory failure # Pneumonia likely due to Gram +/- bacteria # COPD exacerbation likely due to pneumonia # Right pleural effusion # H/o PE # History of lung cancer status post lobectomy # Ruled out ACS # Ruled out acute CHF exacerbation - on zosyn and doxycycline - prednisone 40 mg b.i.d. p.o. - duo nebs q.6 hour - therapeutic dose Lovenox - tropes 7, 8, 17 - BNP 29.21 - echo-LVEF 60% - # Previous history of SC # Previous history of CVA - aspirin Goals of care discussed with the patient for over 17 minutes. Code status: full code Plan discussed with Dr. Mina Plan discussed with: Patient My Orders My Orders Orders - STEFFI RODRIGUEZ RESIDENT Procedure Category Date Status Time Enoxaparin Sodium PHA 01/05/25 In Process (Lovenox) 22:00 Date of Service: Jan 05, 2025 Billing Provider: JOSE L MINA MD Common Visit Codes: [id number] INP/OBS CARE(HIGH) STEFFI RODRIGUEZ RESIDENT Jan 05, 2025 14:54 JOSE L MINA MD Jan 05, 2025 23:21
[2025-01-05] MEDS: ENOXAPARIN SOD 100 MG/1 ML SYRINGE SC SCH (22:22)
[2025-01-06] VITALS (19 sets, daily range): BP systolic 114–133; BP diastolic 56–90; PULSE 66–92; RESP 16–20; TEMP 97.5–98.7; O2SAT 94–100
[2025-01-06 07:11] LABS: Hemoglobin 13.5 g/dL (13.5-17.5); Nucleated Red Blood Cells % 0.0 %
[2025-01-06 07:14] LABS: Hematocrit 40.7 % (41.0-53.0); Mean Corpuscular Hemoglobin 27.3 pg (28.0-32.0); Mean Corpuscular Volume 82.6 fL (80.0-100.0)
[2025-01-06 07:29] LABS: Anion Gap 8 (5-15); Calcium 9.6 mg/dL (8.7-10.4); Carbon Dioxide 28 mmol/L (20-31); Chloride 105 mmol/L (98-107); Potassium 4.6 mmol/L (3.5-5.1); Sodium 141 mmol/L (136-145)
[2025-01-06 07:35] LABS: BUN/Creatinine Ratio 12.0 (10.0-20.0); Blood Urea Nitrogen 12 mg/dL (9-23)
[2025-01-06 07:43] LABS: Glucose 120 mg/dL (74-106)
--- NOTE | 2025-01-06 17:43 | DVHPNRES ---
Progress Note Date Seen: Jan 06, 2025 Resident Creating Document: STEFFI RODRIGUEZ RESIDENT Medical Necessity Reason Pt with a Central, PICC or Fol: No Subjective Review of Systems [place] this is a 69-year-old male with a past medical history of hypertension, PE, COPD on 2 L home oxygen, lung cancer status post lobectomy right side, CVA, PR presented to the ED with the chief complaint of shortness of breaths for 1 day. Patient mentions he uses oxygen and his albuterol inhaler at home on and off as needed. Patient was recently hospitalized 1 week back, when he was treated for COPD exacerbation and discharged home on oral steroids and doxycycline. He denied any fever, chills, cough or expectoration. On arrival to the ED, ABG showed mixed respiratory acidosis and metabolic acidosis, for which patient was put on BiPAP for the respiratory distress. On evaluation today, patient was breathing comfortably on 2 L oxygen by nasal cannula. Past medical history: hypertension, PE, COPD on 2 L home oxygen, lung cancer status post lobectomy right side, CVA, PR Past surgical history: Lobectomy for lung cancer, right patella surgery Social & Personal history: Patient denies current smoking, alcohol, drug use but was an ex heavy smoker Home medications: Eliquis 5 mg b.i.d., aspirin 81 daily, hydrochlorothiazide 25 daily, albuterol inhaler, nebulizer Allergies: No known allergy Patient seen and examined at bedside. Patient is alert and oriented to time, place person and responding to all questions. Eyes: No Pain, No Vision change, No Conjunctivae inflammation, No Eyelid inflammation, No Redness ENT: No Ear pain, No Ear discharge, No Nose pain, No Nose discharge, No Nose congestion, No Mouth pain, No Mouth swelling, No Throat pain, No Throat swelling Cardiovascular: No Chest Pain, No Palpitations, No Orthopnea, No Paroxysmal No Dyspnea, No Edema, No Lt Headedness Respiratory: No Cough, No Dry, No Shortness of breath, No SOB with exertion, No Wheezing, No Hemoptysis, No Pleuritic Pain, No Sputum Gastrointestinal: No Nausea, No Vomiting, No Abdominal Pain, No Diarrhea, No Constipation, No Melena, No Hematochezia Genitourinary: No Dysuria, No Frequency, No Incontinence, No Hematuria, No Retention 01/05/25- The patient was seen at bedside today. He was breathing comfortably on 2 L oxygen by nasal cannula, with no respiratory distress. White count today 17.6. We will continue with the same antibiotics and mednebs. Step up therapy for COPD on discharge was discussed with the patient. Possible discharge tomorrow. 01/06/25- the patient was seen and evaluated at bedside today. He was on 2 L oxygen by nasal cannula. Patient developed acute respiratory distress with increased work of breathing while returning from the restroom, and had to be put on 5 L oxygen for some time and start breathing treatment was given to him, post which started feeling better. He is currently on 3 L oxygen via nasal cannula. Family was at bedside, they were updated about diagnosis and management. volunteer services director consult was placed for arranging nebulizer and home health for COPD education and nebulizer use along with medication compliance. D-dimer and CT angio chest with contrast was ordered for the patient to rule out PE. Objective vital signs Vital Sign Date Time Temp Pulse Resp B/P (MAP) Pulse Ox O2 Delivery O2 Flow Rate FiO2 01/06/25 15:14 86 16 121/90 99 3.0 32 01/06/25 13:00 98.5 98.5 01/06/25 11:16 Nasal Cannula Total Intake and Output 01/05/25 01/05/25 01/06/25 15:00 23:00 07:00 Intake Total 125 ml 1075 ml 1100 ml Output Total 1400 ml Balance 125 ml 1075 ml -300 ml medications Current Medications Medications Dose Ordered Sig/Arnaldo Route Start Time Stop Time Status Last Admin Dose Admin Nitroglycerin 0.4 mg Q5MINP PRN SL 01/03/25 17:00 Morphine Sulfate 2 mg Q30M PRN IV 01/03/25 17:00 Albuterol 2.5 mg Q6HR NEB 01/03/25 18:00 01/06/25 11:16 2.5 MG Ipratropium [place] 0.5 mg Q6HR NEB 01/03/25 18:00 01/06/25 11:16 0.5 MG Doxycycline Monohydrate 100 mg Q12HR PO 01/03/25 22:00 01/06/25 10:00 100 MG Aspirin 81 mg DAILY PO 01/04/25 10:00 01/06/25 10:12 81 MG Prednisone 40 mg BID PO 01/04/25 10:00 01/06/25 10:13 40 MG Piperacillin Sod/ Tazobactam Sod 100 ml @ 25 mls/hr Q8HR IV 01/04/25 14:00 01/06/25 13:54 25 MLS/HR Enoxaparin Sodium 60 mg Q12HR SC 01/05/25 22:00 01/06/25 10:13 60 MG Examination Skin - Patients skin is warm and dry. HEENT - normocephalic, atraumatic, moist mucous membranes, no pallor, no icterus Neck - full ROM, no LAD, JVP slightly elevated Pulmonary - B/L decreased breath sounds with diffuse wheezing, very diminished breath sounds in the right lower cardiovascular - regular S1,S2 heard, no added sounds, no murmurs heard. peripheral pulses normal radial 2+, pedal 2+. capillary refill normal <2 secs. GI - soft, nontender abdomen. no hepatosplenomegaly. Bowel sounds normoactive Neurological - Patient is A/O X 4 . right upper extremity strength 5/5, left upper extremity strength 4/5, bilateral lower extremity strength 5/5, no facial droop, normal speech, no tremor, no sensory deficits laboratory and microbiology Laboratory Tests 01/06/25 05:30 Test 01/06/25 05:30 Range/Units Serum Glucose 120 H 74-106 mg/dL Microbiology Date/Time Source Procedure Growth Status 01/04/25 07:40 Nose MRSA Screen - Final Complete 01/03/25 16:16 Blood Blood Culture - Preliminary NO GROWTH AFTER 72 HOURS OF INCUBATION. Resulted Labs and/or images reviewed: Labs reviewed by me, Image(s) reviewed by me Problem List/Assessment/Plan Problem List/Assessment/Plan # Acute on chronic hypoxic respiratory failure, on 3 liter oxygen by nasal canula # Pneumonia likely due to Gram +/- bacteria # COPD exacerbation likely due to pneumonia # Right pleural effusion # H/o PE # History of lung cancer status post lobectomy # Ruled out ACS # Ruled out acute CHF exacerbation # Rule out pulmonary embolism # mixed respiratory acidosis and metabolic acidosis on admission - on zosyn and doxycycline - prednisone 40 mg b.i.d. p.o. 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 Code status: full code Plan discussed with Dr. Oron[place] Plan discussed with: Patient My Orders My Orders Orders - STEFFI RODRIGUEZ Procedure Category Date Status Time * [employer] Dr[employer] Helper CONS 01/05/[address] Angio Chest CT 01/06/25 Logged Contrast 15:58 * [employer] Helper CONS 01/06/25 Transmitted Consult * [employer] Helper CONS 01/06/25 Transmitted Consult Date of Service: Jan 06, 2025 Billing Provider: MAURA MCCANN MD Common Visit Codes: [id number] INP/OBS CARE(HIGH) STEFFI RODRIGUEZ RESIDENT Jan 06, 2025 17:43
[2025-01-07] VITALS (15 sets, daily range): BP systolic 121–142; BP diastolic 75–81; PULSE 66–92; RESP 16–20; TEMP 97.5–97.8; O2SAT 95–100
[2025-01-07 07:00] LABS: Hematocrit 40.4 % (41.0-53.0); Hemoglobin 13.2 g/dL (13.5-17.5); Mean Corpuscular Hemoglobin 27.1 pg (28.0-32.0); Mean Corpuscular Volume 83.1 fL (80.0-100.0); Nucleated Red Blood Cells % 0.1 %
[2025-01-07 07:06] LABS: Chloride 105 mmol/L (98-107); Potassium 4.5 mmol/L (3.5-5.1); Sodium 144 mmol/L (136-145)
[2025-01-07 07:07] LABS: Anion Gap 11 (5-15); Calcium 9.4 mg/dL (8.7-10.4); Carbon Dioxide 28 mmol/L (20-31)
[2025-01-07 07:12] LABS: BUN/Creatinine Ratio 13.0 (10.0-20.0); Blood Urea Nitrogen 16 mg/dL (9-23)
[2025-01-07 07:15] LABS: Glucose 214 mg/dL (74-106)
--- NOTE | 2025-01-07 10:30 | DVH ---
Procedure: CT CT ANGIO CHEST CONTRAST Reason for study/Clinical History: shortness of breath Comparison Study: XY CHEST PORTABLE on DOS: 01/03/25, XY CHEST PORTABLE on DOS: 12/27/24, XY CHEST PORTABLE on DOS: 11/28/24, XY CHEST PORTABLE on DOS: 11/28/24, XY CHEST PORTABLE on DOS: 11/28/24 Exam Date: 01/07/2025 09:[address] Angio Chest with Contrast TECHNIQUE: Multiple axial CT images of chest was performed following intravenous contrast administration and coronal reformatting was performed. 3-D/MIP images were obtained. Radiation Dose : CTDI volume is 23.68 mGy. Dose-length product is 767.48 mGy*cm FINDINGS: Pulmonary Arteries: There are no filling defects within main, lobar, segmental and visualized subsegmental branch pulmonary arteries. There is normal dimensional of main PA. Lungs: There is no peripheral pulmonary infarction, consolidation, pleural effusion, or right heart strain. There is no pneumothorax or pneumomediastinum. Aorta and Vasculature: There is normal caliber of thoracic aorta without evidence of aortic dissection, intramural hematoma or aneurysm. Lymph Nodes: There is no significant intrathoracic or axillary lymphadenopathy on CT size criteria. Lower Neck: Visualized portions of the thyroid gland are unremarkable. Mediastinum: Heart size is normal. There is no pericardial effusion. The esophagus is unremarkable. Musculoskeletal: No aggressive focal bony lesions, acute fractures or dislocation. Chest wall: Unremarkable Partially visualized upper abdomen is grossly unremarkable. IMPRESSION: 1. No evidence of acute or chronic pulmonary embolism. END IMPRESSION: All CT scans at this medical facility are performed using dose modulation techniques as appropriate to a performed exam including the following: Automated exposure control was utilized; adjustment of the MA and/or KV according to patient size; and use of iterative reconstruction technique.
--- NOTE | 2025-01-07 10:59 | DVHPNRES ---
Progress Note Date Seen: Jan 07, 2025 Resident Creating Document: JO ANN ALARCON RESIDENT Medical Necessity Reason Pt with a Central, PICC or Fol: No Subjective Review of Systems [place] this is a 69-year-old male with a past medical history of hypertension, PE, COPD on 2 L home oxygen, lung cancer status post lobectomy right side, CVA, [place] presented to the ED with the chief complaint of shortness of breaths for 1 day. Patient mentions he uses oxygen and his albuterol inhaler at home on and off as needed. Patient was recently hospitalized 1 week back, when he was treated for COPD exacerbation and discharged home on oral steroids and doxycycline. He denied any fever, chills, cough or expectoration. On arrival to the ED, ABG showed mixed respiratory acidosis and metabolic acidosis, for which patient was put on BiPAP for the respiratory distress. On evaluation today, patient was breathing comfortably on 2 L oxygen by nasal cannula. Past medical history: hypertension, PE, COPD on 2 L home oxygen, lung cancer status post lobectomy right side, CVA, [place] Past surgical history: Lobectomy for lung cancer, right patella surgery Social & Personal history: Patient denies current smoking, alcohol, drug use but was an ex heavy smoker Home medications: Eliquis 5 mg b.i.d., aspirin 81 daily, hydrochlorothiazide 25 daily, albuterol inhaler, nebulizer Allergies: No known allergy Patient seen and examined at bedside. Patient is alert and oriented to time, place person and responding to all questions. Eyes: No Pain, No Vision change, No Conjunctivae inflammation, No Eyelid inflammation, No Redness ENT: No Ear pain, No Ear discharge, No Nose pain, No Nose discharge, No Nose congestion, No Mouth pain, No Mouth swelling, No Throat pain, No Throat swelling Cardiovascular: No Chest Pain, No Palpitations, No Orthopnea, No Paroxysmal No Dyspnea, No Edema, No Lt Headedness Respiratory: No Cough, No Dry, No Shortness of breath, No SOB with exertion, No Wheezing, No Hemoptysis, No Pleuritic Pain, No Sputum Gastrointestinal: No Nausea, No Vomiting, No Abdominal Pain, No Diarrhea, No Constipation, No Melena, No Hematochezia Genitourinary: No Dysuria, No Frequency, No Incontinence, No Hematuria, No Retention 01/05/25- The patient was seen at bedside today. He was breathing comfortably on 2 L oxygen by nasal cannula, with no respiratory distress. White count today 17.6. We will continue with the same antibiotics and mednebs. Step up therapy for COPD on discharge was discussed with the patient. Possible discharge tomorrow. 01/06/25- the patient was seen and evaluated at bedside today. He was on 2 L oxygen by nasal cannula. Patient developed acute respiratory distress with increased work of breathing while returning from the restroom, and had to be put on 5 L oxygen for some time and start breathing treatment was given to him, post which started feeling better. He is currently on 3 L oxygen via nasal cannula. Family was at bedside, they were updated about diagnosis and management. oil well services superintendent consult was placed for arranging nebulizer and home health for COPD education and nebulizer use along with medication compliance. D-dimer and CT angio chest with contrast was ordered for the patient to rule out PE. 01/07/2025: Patient seen at bedside. Patient is on 4 L oxygen was taken to CT angiogram. Had COPD exacerbation again last night. CT angio showed No evidence of acute or chronic pulmonary embolism. No acute changes. Social service consulted for arranging nebulizer. Home health. Possible discharge tomorrow. Objective vital signs Vital Sign Date Time Temp Pulse Resp B/P (MAP) Pulse Ox O2 Delivery O2 Flow Rate FiO2 01/07/25 08:10 92 20 96 Nasal Cannula* 2 28 01/07/25 05:00 97.8 121/75 (90) 97.8 Total Intake and Output 01/06/25 01/06/25 01/07/25 15:00 23:00 07:00 Intake Total 870 ml 800 ml Output Total 200 ml Balance 870 ml 600 ml medications Current Medications Medications Dose Ordered Sig/Arnaldo Route Start Time Stop Time Status Last Admin Dose Admin Nitroglycerin 0.4 mg Q5MINP PRN SL 01/03/25 17:00 Morphine Sulfate 2 mg Q30M PRN IV 01/03/25 17:00 Albuterol 2.5 mg Q6HR NEB 01/03/25 18:00 01/07/25 06:47 2.5 MG Ipratropium [place] 0.5 mg Q6HR NEB 01/03/25 18:00 01/07/25 06:47 0.5 MG Doxycycline Monohydrate 100 mg Q12HR PO 01/03/25 22:00 01/06/25 22:36 100 MG Aspirin 81 mg DAILY PO 01/04/25 10:00 01/06/25 10:12 81 MG Prednisone 40 mg BID PO 01/04/25 10:00 01/06/25 22:35 40 MG Piperacillin Sod/ Tazobactam Sod 100 ml @ 25 mls/hr Q8HR IV 01/04/25 14:00 01/07/25 05:25 25 MLS/HR Enoxaparin Sodium 60 mg Q12HR SC 01/05/25 22:00 01/06/25 22:36 60 MG Examination Skin - Patients skin is warm and dry. HEENT - normocephalic, atraumatic, moist mucous membranes, no pallor, no icterus Neck - full ROM, no LAD, JVP slightly elevated Pulmonary - B/L decreased breath sounds with diffuse wheezing, very diminished breath sounds in the right lower cardiovascular - regular S1,S2 heard, no added sounds, no murmurs heard. peripheral pulses normal radial 2+, pedal 2+. capillary refill normal <2 secs. GI - soft, nontender abdomen. no hepatosplenomegaly. Bowel sounds normoactive Neurological - Patient is A/O X 4 . right upper extremity strength 5/5, left upper extremity strength 4/5, bilateral lower extremity strength 5/5, no facial droop, normal speech, no tremor, no sensory deficits laboratory and microbiology Laboratory Tests 01/07/25 05:08 Test 01/07/25 05:08 Range/Units Serum Glucose 214 H 74-106 mg/dL Microbiology Date/Time Source Procedure Growth Status 01/04/25 07:40 Nose MRSA Screen - Final Complete 01/03/25 16:16 Blood Blood Culture - Preliminary NO GROWTH AFTER 72 HOURS OF INCUBATION. Resulted Problem List/Assessment/Plan Problem List/Assessment/Plan # Acute on chronic hypoxic respiratory failure, on 3 liter oxygen by nasal canula # Pneumonia likely due to Gram +/- bacteria # COPD exacerbation likely due to pneumonia # Right pleural effusion # H/o PE # History of lung cancer status post lobectomy # Ruled out ACS # Ruled out acute CHF exacerbation # Rule out pulmonary embolism # mixed respiratory acidosis and metabolic acidosis on admission - on zosyn and doxycycline - prednisone 40 mg b.i.d. p.o. - ricardoo nebs q.6 hour - therapeutic dose Lovenox 60 mg [place] q.12 hour - tropes 7, 8, 17 on 01/03/25 - BNP 29.21 - echo-LVEF 60% - D-dimer negative - CT angio chest with contrast showed No evidence of acute or chronic pulmonary embolism. 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 Code status: full code Plan discussed with Dr. Oron[place] Plan discussed with: Patient Date of Service: Jan 07, 2025 Billing Provider: MAURA MCCANN MD Common Visit Codes: [id number] INP/OBS CARE(HIGH) JO ANN ALARCON RESIDENT Jan 07, 2025 10:59
[2025-01-08] VITALS (19 sets, daily range): BP systolic 122–151; BP diastolic 78–91; PULSE 67–94; RESP 14–20; TEMP 97.1–98.2; O2SAT 94–100
[2025-01-08 05:54] LABS: Hematocrit 39.5 % (41.0-53.0); Hemoglobin 12.6 g/dL (13.5-17.5); Mean Corpuscular Hemoglobin 27.0 pg (28.0-32.0); Mean Corpuscular Volume 84.4 fL (80.0-100.0); Nucleated Red Blood Cells % 0.1 %
[2025-01-08 06:06] LABS: Chloride 105 mmol/L (98-107); Potassium 5.0 mmol/L (3.5-5.1); Sodium 142 mmol/L (136-145)
[2025-01-08 06:07] LABS: Anion Gap 10 (5-15); Carbon Dioxide 27 mmol/L (20-31)
[2025-01-08 06:08] LABS: Calcium 9.1 mg/dL (8.7-10.4)
[2025-01-08 06:13] LABS: BUN/Creatinine Ratio 11.4 (10.0-20.0); Blood Urea Nitrogen 13 mg/dL (9-23)
[2025-01-08 06:15] LABS: Glucose 222 mg/dL (74-106)
[2025-01-08 15:39] LABS: Hematocrit 39.2 % (41.0-53.0); Hemoglobin 12.8 g/dL (13.5-17.5); Mean Corpuscular Hemoglobin 26.8 pg (28.0-32.0); Mean Corpuscular Volume 82.3 fL (80.0-100.0); Nucleated Red Blood Cells % 0.1 %
--- NOTE | 2025-01-08 17:39 | DVHPNRES ---
Progress Note Date Seen: Jan 08, 2025 Resident Creating Document: STEFFI RODRIGUEZ RESIDENT Medical Necessity Reason Pt with a Central, PICC or Fol: No Subjective Review of Systems Brandon Mar[place] this is a 69-year-old male with a past medical history of hypertension, PE, COPD on 2 L home oxygen, lung cancer status post lobectomy right side, CVA, CA presented to the ED with the chief complaint of shortness of breaths for 1 day. Patient mentions he uses oxygen and his albuterol inhaler at home on and off as needed. Patient was recently hospitalized 1 week back, when he was treated for COPD exacerbation and discharged home on oral steroids and doxycycline. He denied any fever, chills, cough or expectoration. On arrival to the ED, ABG showed mixed respiratory acidosis and metabolic acidosis, for which patient was put on BiPAP for the respiratory distress. On evaluation today, patient was breathing comfortably on 2 L oxygen by nasal cannula. Past medical history: hypertension, PE, COPD on 2 L home oxygen, lung cancer status post lobectomy right side, CVA, CA Past surgical history: Lobectomy for lung cancer, right patella surgery Social & Personal history: Patient denies current smoking, alcohol, drug use but was an ex heavy smoker Home medications: Eliquis 5 mg b.i.d., aspirin 81 daily, hydrochlorothiazide 25 daily, albuterol inhaler, nebulizer Allergies: No known allergy Patient seen and examined at bedside. Patient is alert and oriented to time, place person and responding to all questions. Eyes: No Pain, No Vision change, No Conjunctivae inflammation, No Eyelid inflammation, No Redness ENT: No Ear pain, No Ear discharge, No Nose pain, No Nose discharge, No Nose congestion, No Mouth pain, No Mouth swelling, No Throat pain, No Throat swelling Cardiovascular: No Chest Pain, No Palpitations, No Orthopnea, No Paroxysmal No Dyspnea, No Edema, No Lt Headedness Respiratory: No Cough, No Dry, No Shortness of breath, No SOB with exertion, No Wheezing, No Hemoptysis, No Pleuritic Pain, No Sputum Gastrointestinal: No Nausea, No Vomiting, No Abdominal Pain, No Diarrhea, No Constipation, No Melena, No Hematochezia Genitourinary: No Dysuria, No Frequency, No Incontinence, No Hematuria, No Retention 01/05/25- The patient was seen at bedside today. He was breathing comfortably on 2 L oxygen by nasal cannula, with no respiratory distress. White count today 17.6. We will continue with the same antibiotics and mednebs. Step up therapy for COPD on discharge was discussed with the patient. 01/06/25- the patient was seen and evaluated at bedside today. He was on 2 L oxygen by nasal cannula. Patient developed acute respiratory distress with increased work of breathing while returning from the restroom, and had to be put on 5 L oxygen for some time and start breathing treatment was given to him, post which started feeling better. He is currently on 3 L oxygen via nasal cannula. Family was at bedside, they were updated about diagnosis and management. professional services consultant consult was placed for arranging nebulizer and home health for COPD education and nebulizer use along with medication compliance. D-dimer and CT angio chest with contrast was ordered for the patient to rule out PE. 01/07/2025: Patient seen at bedside. Patient is on 4 L oxygen was taken to CT angiogram. Had COPD exacerbation again last night. CT angio showed No evidence of acute or chronic pulmonary embolism. No acute changes. Social service consulted for arranging nebulizer. Home health. Possible discharge tomorrow. 01/08/25- patient was seen at bedside today. The patient was breathing comfortably on 3 L oxygen by nasal cannula. The patient was still wheezing and white count was 18.1. No new complaints. professional services consultant is working on arranging nebulizer for the patient on discharge. Objective vital signs Vital Sign Date Time Temp Pulse Resp B/P (MAP) Pulse Ox O2 Delivery O2 Flow Rate FiO2 01/08/25 17:00 97.8 94 14 151/89 (109) 94 97.8 01/08/25 08:39 Nasal Cannula* 2 28 Total Intake and Output 01/07/25 01/07/25 01/08/25 15:00 23:00 07:00 Intake Total 1400 ml 1400 ml Output Total 580 ml Balance 1400 ml 820 ml medications Current Medications Medications Dose Ordered Sig/Arnaldo Route Start Time Stop Time Status Last Admin Dose Admin Nitroglycerin 0.4 mg Q5MINP PRN SL 01/03/25 17:00 Morphine Sulfate 2 mg Q30M PRN IV 01/03/25 17:00 Albuterol 2.5 mg Q6HR NEB 01/03/25 18:00 01/08/25 12:22 2.5 MG Ipratropium [place] 0.5 mg Q6HR NEB 01/03/25 18:00 01/08/25 12:22 0.5 MG Doxycycline Monohydrate 100 mg Q12HR PO 01/03/25 22:00 01/08/25 09:27 100 MG Aspirin 81 mg DAILY PO 01/04/25 10:00 01/08/25 09:27 81 MG Prednisone 40 mg BID PO 01/04/25 10:00 01/08/25 09:27 40 MG Piperacillin Sod/ Tazobactam Sod 100 ml @ 25 mls/hr Q8HR IV 01/04/25 14:00 01/08/25 05:37 25 MLS/HR Enoxaparin Sodium 60 mg Q12HR SC 01/05/25 22:00 01/08/25 09:27 60 MG Examination Skin - Patients skin is warm and dry. HEENT - normocephalic, atraumatic, moist mucous membranes, no pallor, no icterus Neck - full ROM, no LAD, JVP slightly elevated Pulmonary - B/L decreased breath sounds with diffuse wheezing, very diminished breath sounds in the right lower cardiovascular - regular S1,S2 heard, no added sounds, no murmurs heard. peripheral pulses normal radial 2+, pedal 2+. capillary refill normal <2 secs. GI - soft, nontender abdomen. no hepatosplenomegaly. Bowel sounds normoactive Neurological - Patient is A/O X 4 . right upper extremity strength 5/5, left upper extremity strength 4/5, bilateral lower extremity strength 5/5, no facial droop, normal speech, no tremor, no sensory deficits laboratory and microbiology Laboratory Tests 01/08/25 15:05 01/08/25 05:12 Test 01/08/25 05:12 Range/Units Serum Glucose 222 H 74-106 mg/dL Microbiology Date/Time Source Procedure Growth Status 01/04/25 07:40 Nose MRSA Screen - Final Complete 01/03/25 16:16 Blood Blood Culture - Final NO GROWTH AFTER 5 DAYS OF INCUBATION. Complete Labs and/or images reviewed: Labs reviewed by me, Image(s) reviewed by me Problem List/Assessment/Plan Problem List/Assessment/Plan # Acute on chronic hypoxic respiratory failure, on 3 liter oxygen by nasal canula # Pneumonia likely due to Gram +/- bacteria # COPD exacerbation likely due to pneumonia # Right pleural effusion # H/o PE # History of lung cancer status post lobectomy # Ruled out ACS # Ruled out acute CHF exacerbation # Ruled out pulmonary embolism # mixed respiratory acidosis and metabolic acidosis on admission - on zosyn and doxycycline - prednisone 40 mg b.i.d. p.o. - duo nebs q.6 hour - therapeutic dose Lovenox 60 mg SC q.12 hour - tropes 7,8,17 on 01/03/25 - BNP 29.21 - echo-LVEF 60% - D-dimer negative - CT angio chest with contrast showed No evidence of acute or chronic pulmonary embolism. 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 Code status: full code Plan discussed with Dr. Mina Plan discussed with: Patient My Orders My Orders Orders - STEFFI RODRIGUEZ RESIDENT Procedure Category Date Status Time Discontinue Tele LINDSAY 01/08/25 In Process 15:01 Transfer Orders XFER 01/08/25 Transmitted 15:01 Communication Order ORDERS 01/08/25 Transmitted 15:01 Dietary Evaluation Review Comments: Monitor PO intake, lab values, weight trend, and I/O Expected Outcomes/Goals: Intake to meet >75% estimated needs FU 3-5 days Date of Service: Jan 08, 2025 Billing Provider: JOSE L MINA MD Common Visit Codes: [id number] INP/OBS CARE(HIGH) STEFFI RODRIGUEZ RESIDENT Jan 08, 2025 17:39 JOSE L MINA MD Jan 08, 2025 17:53
[2025-01-09] VITALS (16 sets, daily range): BP systolic 120–133; BP diastolic 70–89; PULSE 61–89; RESP 14–20; TEMP 97.4–98; O2SAT 95–100
[2025-01-09 07:01] LABS: Hematocrit 40.2 % (41.0-53.0); Hemoglobin 12.9 g/dL (13.5-17.5); Mean Corpuscular Hemoglobin 26.8 pg (28.0-32.0); Mean Corpuscular Volume 83.1 fL (80.0-100.0); Nucleated Red Blood Cells % 0.0 %
--- NOTE | 2025-01-09 10:58 | DVH ---
CHEST RADIOGRAPH Indication: penumonia Technique: Single frontal view of the chest was obtained. Comparison: XY CHEST PORTABLE on DOS: 01/03/25 Findings: Right basilar atelectasis. No significant pleural effusion. No pneumothorax. Stable cardiomediastinal silhouette. IMPRESSION: Right basilar atelectasis.
--- NOTE | 2025-01-09 14:32 | DVHPNRES ---
Progress Note Date Seen: Jan 09, 2025 Resident Creating Document: STEFFI RODRIGUEZ RESIDENT Medical Necessity Reason Pt with a Central, PICC or Fol: No Subjective Review of Systems Brandon [place] this is a 69-year-old male with a past medical history of hypertension, PE, COPD on 2 L home oxygen, lung cancer status post lobectomy right side, CVA, [place] presented to the ED with the chief complaint of shortness of breaths for 1 day. Patient mentions he uses oxygen and his albuterol inhaler at home on and off as needed. Patient was recently hospitalized 1 week back, when he was treated for COPD exacerbation and discharged home on oral steroids and doxycycline. He denied any fever, chills, cough or expectoration. On arrival to the ED, ABG showed mixed respiratory acidosis and metabolic acidosis, for which patient was put on BiPAP for the respiratory distress. On evaluation today, patient was breathing comfortably on 2 L oxygen by nasal cannula. Past medical history: hypertension, PE, COPD on 2 L home oxygen, lung cancer status post lobectomy right side, CVA, [place] Past surgical history: Lobectomy for lung cancer, right patella surgery Social & Personal history: Patient denies current smoking, alcohol, drug use but was an ex heavy smoker Home medications: Eliquis 5 mg b.i.d., aspirin 81 daily, hydrochlorothiazide 25 daily, albuterol inhaler, nebulizer Allergies: No known allergy Patient seen and examined at bedside. Patient is alert and oriented to time, place person and responding to all questions. Eyes: No Pain, No Vision change, No Conjunctivae inflammation, No Eyelid inflammation, No Redness ENT: No Ear pain, No Ear discharge, No Nose pain, No Nose discharge, No Nose congestion, No Mouth pain, No Mouth swelling, No Throat pain, No Throat swelling Cardiovascular: No Chest Pain, No Palpitations, No Orthopnea, No Paroxysmal No Dyspnea, No Edema, No Lt Headedness Respiratory: No Cough, No Dry, No Shortness of breath, No SOB with exertion, No Wheezing, No Hemoptysis, No Pleuritic Pain, No Sputum Gastrointestinal: No Nausea, No Vomiting, No Abdominal Pain, No Diarrhea, No Constipation, No Melena, No Hematochezia Genitourinary: No Dysuria, No Frequency, No Incontinence, No Hematuria, No Retention 01/05/25- The patient was seen at bedside today. He was breathing comfortably on 2 L oxygen by nasal cannula, with no respiratory distress. White count today 17.6. We will continue with the same antibiotics and mednebs. Step up therapy for COPD on discharge was discussed with the patient. 01/06/25- the patient was seen and evaluated at bedside today. He was on 2 L oxygen by nasal cannula. Patient developed acute respiratory distress with increased work of breathing while returning from the restroom, and had to be put on 5 L oxygen for some time and start breathing treatment was given to him, post which started feeling better. He is currently on 3 L oxygen via nasal cannula. Family was at bedside, they were updated about diagnosis and management. director of convention services consult was placed for arranging nebulizer and home health for COPD education and nebulizer use along with medication compliance. D-dimer and CT angio chest with contrast was ordered for the patient to rule out PE. 01/07/2025: Patient seen at bedside. Patient is on 4 L oxygen was taken to CT angiogram. Had COPD exacerbation again last night. CT angio showed No evidence of acute or chronic pulmonary embolism. No acute changes. Social service consulted for arranging nebulizer. Home health. Possible discharge tomorrow. 01/08/25- Patient was seen at bedside today. The patient was breathing comfortably on 3 L oxygen by nasal cannula. The patient was still wheezing and white count was 18.1. No new complaints. director of convention services is working on arranging nebulizer for the patient on discharge. 01/09/25- Patient was seen at bedside today. He was breathing comfortably on 3 L oxygen via nasal cannula. No new complaints. White count today was 19.9. Chest x-ray was ordered, which showed right basilar atelectasis. Prednisone was discontinued. Sputum culture was ordered. Objective vital signs Vital Sign Date Time Temp Pulse Resp B/P (MAP) Pulse Ox O2 Delivery O2 Flow Rate FiO2 01/09/25 12:41 97.9 67 14 128/89 (102) 100 97.9 01/09/25 06:40 Nasal Cannula* 2 28 Total Intake and Output 01/08/25 01/08/25 01/09/25 15:00 23:00 07:00 Intake Total 1160 ml 700 ml Output Total 840 ml 900 ml Balance 320 ml -200 ml medications Current Medications Medications Dose Ordered Sig/Arnaldo Route Start Time Stop Time Status Last Admin Dose Admin Nitroglycerin 0.4 mg Q5MINP PRN SL 01/03/25 17:00 Morphine Sulfate 2 mg Q30M PRN IV 01/03/25 17:00 Albuterol 2.5 mg Q6HR NEB 01/03/25 18:00 01/09/25 12:22 2.5 MG Ipratropium [place] 0.5 mg Q6HR NEB 01/03/25 18:00 01/09/25 12:21 0.5 MG Doxycycline Monohydrate 100 mg Q12HR PO 01/03/25 22:00 01/09/25 10:00 100 MG Aspirin 81 mg DAILY PO 01/04/25 10:00 01/09/25 10:00 81 MG Piperacillin Sod/ Tazobactam Sod 100 ml @ 25 mls/hr Q8HR IV 01/04/25 14:00 01/09/25 05:25 25 MLS/HR Enoxaparin Sodium 60 mg Q12HR SC 01/05/25 22:00 01/09/25 10:00 60 MG Examination Skin - Patients skin is warm and dry. HEENT - normocephalic, atraumatic, moist mucous membranes, no pallor, no icterus Neck - full ROM, no LAD, JVP slightly elevated Pulmonary - B/L decreased breath sounds with diffuse wheezing, very diminished breath sounds in the right lower cardiovascular - regular S1,S2 heard, no added sounds, no murmurs heard. peripheral pulses normal radial 2+, pedal 2+. capillary refill normal <2 secs. GI - soft, nontender abdomen. no hepatosplenomegaly. Bowel sounds normoactive Neurological - Patient is A/O X 4 . right upper extremity strength 5/5, left upper extremity strength 4/5, bilateral lower extremity strength 5/5, no facial droop, normal speech, no tremor, no sensory deficits laboratory and microbiology Laboratory Tests 01/09/25 05:01 01/08/25 05:12 Test 01/08/25 05:12 Range/Units Serum Glucose 222 H 74-106 mg/dL Microbiology Date/Time Source Procedure Growth Status 01/04/25 07:40 Nose MRSA Screen - Final Complete 01/03/25 16:16 Blood Blood Culture - Final NO GROWTH AFTER 5 DAYS OF INCUBATION. Complete Labs and/or images reviewed: Labs reviewed by me, Image(s) reviewed by me Problem List/Assessment/Plan Problem List/Assessment/Plan # Acute on chronic hypoxic respiratory failure, on 3 liter oxygen by nasal canula # Pneumonia likely due to Gram +/- bacteria # COPD exacerbation likely due to pneumonia # Right pleural effusion # H/o PE # History of lung cancer status post lobectomy # Ruled out ACS # Ruled out acute CHF exacerbation # Ruled out pulmonary embolism # mixed respiratory acidosis and metabolic acidosis on admission - on zosyn and doxycycline - prednisone 40 mg discontinued today - duo nebs q.6 hour - therapeutic dose Lovenox 60 mg SC q.12 hour - tropes 7,8,17 on 01/03/25 - BNP 29.21 - echo-LVEF 60% - D-dimer negative - CT angio chest with contrast showed No evidence of acute or chronic pulmonary embolism. 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 Code status: full code Plan discussed with Dr. Mina Plan discussed with: Patient My Orders My Orders Orders - STEFFI RODRIGUEZ RESIDENT Procedure Category Date Status Time Discontinue Tele LINDSAY 01/08/25 In Process 15:01 Transfer Orders XFER 01/08/25 Transmitted 15:01 Communication Order ORDERS 01/08/25 Transmitted 15:01 Chest Xray 1 View XY 01/09/25 Resulted 10:08 Respiratory Culture ANNAMARIA 01/09/25 Logged W/ Gs 12:00 Dietary Evaluation Review Comments: Monitor PO intake, lab values, weight trend, and I/O Expected Outcomes/Goals: Intake to meet >75% estimated needs FU 3-5 days Date of Service: Jan 09, 2025 Billing Provider: JOSE L MINA MD Common Visit Codes: [id number] INP/OBS CARE(HIGH) STEFFI RODRIGUEZ RESIDENT Jan 09, 2025 14:32 JOSE L MINA MD Jan 09, 2025 23:01
[2025-01-10] VITALS (13 sets, daily range): BP systolic 111–123; BP diastolic 71–74; PULSE 63–79; RESP 16–20; TEMP 36.7; O2SAT 92–100
[2025-01-10 05:35] LABS: Hematocrit 38.6 % (41.0-53.0); Hemoglobin 12.7 g/dL (13.5-17.5); Mean Corpuscular Hemoglobin 27.3 pg (28.0-32.0); Mean Corpuscular Volume 82.7 fL (80.0-100.0); Nucleated Red Blood Cells % 0.1 %
[2025-01-10] MEDS ORDERED: predniSONE 20 MG TAB PO SCH (10:00)
[2025-01-10] MEDS ORDERED: UMEC1INH IN (13:41)
[2025-01-10] MEDS ORDERED: BUDE1AER15 IN (13:41)
[2025-01-10] MEDS ORDERED: DOX100T PO (13:41)
--- NOTE | 2025-01-10 17:28 | DVHDSRES ---
Discharge Summary Date of Admission Resident Creating Document: STEFFI RODRIGUEZ RESIDENT Jan 03, 2025 at 16:56 Date of Discharge: Jan 10, 2025 Admitting Diagnosis COPD exacerbation Labs/Diagnostic Data: Laboratory Results Test 01/10/25 05:07 01/08/25 05:12 01/06/25 16:40 01/03/25 19:00 White Blood Count 13.1 10^3/uL (4.4-10.8) Red Blood Count 4.66 10^6/uL (4.5-5.90) Hemoglobin 12.7 g/dL (13.5-17.5) Hematocrit 38.6 % (41.0-53.0) Mean Corpuscular Volume 82.7 fL (80.0-100.0) Mean Corpuscular Hemoglobin 27.3 pg (28.0-32.0) Mean Corpuscular Hemoglobin Concent 33.0 g/dL (32.0-36.0) Red Cell Distribution Width 18.6 % (11.8-14.3) Platelet Count 216 10^3/uL (140-450) Mean Platelet Volume 8.1 fL (6.9-10.8) Neutrophils (%) (Auto) 80.1 % (37.0-80.0) Lymphocytes (%) (Auto) 10.7 % (10.0-50.0) Monocytes (%) (Auto) 8.0 % (0.0-12.0) Eosinophils (%) (Auto) 1.0 % (0.0-7.0) Basophils (%) (Auto) 0.2 % (0.0-2.0) Neutrophils # (Auto) 10.5 10 ^3/uL (1.6-8.6) Lymphocytes # (Auto) 1.4 10 ^3/uL (0.4-5.4) Monocytes # (Auto) 1.0 10 ^3/uL (0-1.3) Eosinophils # (Auto) 0.1 10 ^3/uL (0-0.8) Basophils # (Auto) 0 10 ^3/uL (0-0.2) Nucleated Red Blood Cells 0.1 % Sodium Level 142 mmol/L (136-145) Potassium Level 5.0 mmol/L (3.5-5.1) Chloride Level 105 mmol/L (98-107) Carbon Dioxide Level 27 mmol/L (20-31) Anion Gap 10 (5-15) Blood Urea Nitrogen 13 mg/dL (9-23) Creatinine 1.14 mg/dL (0.700-1.30) Glomerular Filtration Rate Calc 70 mL/min (>90) BUN/Creatinine Ratio 11.4 (10.0-20.0) Serum Glucose 222 mg/dL (74-106) Calcium Level 9.1 mg/dL (8.7-10.4) D-Dimer, Quantitative < 0.19 mg/L FEU (0.0-0.49) Influenza Type A Antigen Negative (Negative) Influenza Type B Antigen Negative (Negative) SARS-CoV-2 Antigen (Rapid) Negative (NEGATIVE) Test 01/03/25 18:00 01/03/25 17:41 01/03/25 16:20 01/03/25 16:00 Urine Color Light-yellow (Yellow) Urine Clarity Clear (Clear) Urine pH 6.5 (5.0-9.0) Urine Specific [place] 1.009 (1.001-1.035) Urine Protein Negative (Negative) Urine Ketones Negative (Negative) Urine Blood Negative /uL (Negative) Urine Nitrite Negative (Negative) Urine Bilirubin Negative (Negative) Urine Urobilinogen Normal mg/dL (Negative) Urine Leukocyte Esterase Negative /uL (Negative) Urine RBC <1 /hpf (0 - 3) Urine Microscopic WBC 2 /HPF (0-3) Urine Squamous Epithelial Cells Few /hpf (<5) Urine Bacteria None seen /hpf (None Seen) Urine Hyaline Casts Few /lpf (0 - 2) Urine Glucose Normal mg/dL (Normal) Troponin I High Sensitivity 17 ng/L (</=54) Blood Gas Specimen Type Arterial Blood Gas Sample Site Left radial Blood Gas Patient Temperature 37.0 Arterial Blood Date Drawn [id number] Arterial Blood pH 7.373 (7.350-7.450) Arterial Blood Partial Pressure CO2 50.5 mmHg (35.0-48.0) Arterial Blood Partial Pressure O2 94.6 mmHg (83.0-108.0) Arterial Blood HCO3 28.7 mmol/L (21.0-28.0) Arterial Blood Oxygen Saturation 97.0 % (94.0-98.0) Arterial Blood Base Excess 2.5 mmol/L (-2.0-3.0) Arterial Blood Oxyhemoglobin 95.4 % (94.0-98.0) Arterial Blood Carboxyhemoglobin 1.1 % (0.5-1.5) Arterial Blood Methemoglobin 0.6 % (0.0-1.5) Chema Test Yes Blood Gas Total Hemoglobin 14.40 g/dL (13.5-17.5) Blood Gas Modality Mask - bipap FiO2 % 30.0 Blood Gas EPAP 6 Blood Gas IPAP 16 Lactic Acid Level 1.7 mmol/L (0.4-2.0) Test 01/03/25 14:40 01/03/25 14:36 B-Type Natriuretic Peptide 29.21 pg/mL (0-100) Blood Gas Liter Flow 15.00 Blood Gas Critical Value Read Back yes Blood Gas Notified Whom Blood Gas Notified Time [id number] Blood Gas Notified By mireille lim Other Laboratory Tests 01/10/25 05:07 01/08/25 05:12 Brief Hx & Hospital Course: Brandonmary Gentile this is a 69-year-old male with a past medical history of hypertension, PE, COPD on 2 L home oxygen, lung cancer status post lobectomy right side, CVA, VT presented to the ED with the chief complaint of shortness of breaths for 1 day. Patient mentions he uses oxygen and his albuterol inhaler at home on and off as needed. Patient was recently hospitalized 1 week back, when he was treated for COPD exacerbation and discharged home on oral steroids and doxycycline. He denied any fever, chills, cough or expectoration. On arrival to the ED, ABG showed mixed respiratory acidosis and metabolic acidosis, for which patient was put on BiPAP for the respiratory distress. Then patient was put on 2 L oxygen by nasal cannula, but required up to 4 L on occasion when he had mild respiratory distress. Patient continued to get breathing treatments. social services analyst consult was placed for arranging nebulizer and home health for COPD education and nebulizer use along with medication compliance. CT angiogram was done, which was negative for pulmonary embolism. Over the course of hospitalization, his oxygen requirement decreased and he continued to be on 2 L oxygen by nasal cannula, which is his baseline at home. Oral steroids were discontinued after 5 days, white count improved. Patient was discharged home in a stable condition. Incruse Ellipta and Breyna inhalers were sent to the patient, and he was educated on how to use them. All medications and recommendations were thoroughly explained to the patient and he demonstrated understanding of the same. Was recommended to follow-up in discharge Clinic in 1 week and with PCP in 1-2 weeks. Past medical history: hypertension, PE, COPD on 2 L home oxygen, lung cancer status post lobectomy right side, CVA, VT Past surgical history: Lobectomy for lung cancer, right patella surgery Social & Personal history: Patient denies current smoking, alcohol, drug use but was an ex heavy smoker Home medications: Eliquis 5 mg b.i.d., aspirin 81 daily, hydrochlorothiazide 25 daily, albuterol inhaler, nebulizer Allergies: No known allerg Physical examination on day of discharge: Skin - Patients skin is warm and dry. HEENT - normocephalic, atraumatic, moist mucous membranes, no pallor, no icterus Neck - full ROM, no LAD, JVP slightly elevated Pulmonary - B/L decreased breath sounds with mild wheezing, diminished breath sounds in the right lower lung cardiovascular - regular S1,S2 heard, no added sounds, no murmurs heard. peripheral pulses normal radial 2+, pedal 2+. capillary refill normal <2 secs. GI - soft, nontender abdomen. no hepatosplenomegaly. Bowel sounds normoactive Neurological - Patient is A/O X 4 . right upper extremity strength 5/5, left upper extremity strength 4/5, bilateral lower extremity strength 5/5, no facial droop, normal speech, no tremor, no sensory deficits Operations or Procedures 1.PROCEDURE(s): CXRP - CHEST PORTABLE REASON: sob ORDER NUMBER(s): [id number], ACCESSION NUMBER(s): [id number] CLINICAL INFORMATION: Shortness of breath. TECHNIQUE: Single AP portable chest radiograph was obtained. COMPARISON: XY CHEST PORTABLE on DOS: 12/27/24, XY CHEST XRAY 1 VIEW on DOS: 12/25/24, XY CHEST XRAY 1 VIEW on DOS: 12/01/24 FINDINGS: Opacities in the right lung base are likely due to a combination of small right pleural effusion with overlying atelectasis and possible consolidation. Slightly increased compared to the prior exam. Left lung is clear. Hypoaeration of the lungs May suggest emphysematous changes. Portions of the lung apices are excluded from the [id number]-[id number] of the exam. No other significant interval change. IMPRESSION: Small right pleural effusion with overlying atelectasis and/or consolidation. Slightly increased compared to the prior exam. 2.PROCEDURE(s): CTACH - CT ANGIO CHEST CONTRAST REASON: shortness of breath ORDER NUMBER(s): [id number], ACCESSION NUMBER(s): [id number] Procedure: CT CT ANGIO CHEST CONTRAST Reason for study/Clinical History: shortness of breath Comparison Study: XY CHEST PORTABLE on DOS: 01/03/25, XY CHEST PORTABLE on DOS: 12/27/24, XY CHEST PORTABLE on DOS: 11/28/24, XY CHEST PORTABLE on DOS: 11/28/24, XY CHEST PORTABLE on DOS: 11/28/24 Exam Date: 01/07/2025 09:[address] Angio Chest with Contrast TECHNIQUE: Multiple axial CT images of chest was performed following intravenous contrast administration and coronal reformatting was performed. 3-D/MIP images were obtained. Radiation Dose : CTDI volume is 23.68 mGy. Dose-length product is 767.48 mGy*cm FINDINGS: Pulmonary Arteries: There are no filling defects within main, lobar, segmental and visualized subsegmental branch pulmonary arteries. There is normal dimensional of main PA. Lungs: There is no peripheral pulmonary infarction, consolidation, pleural effusion, or right heart strain. There is no pneumothorax or pneumomediastinum. Aorta and Vasculature: There is normal caliber of thoracic aorta without evidence of aortic dissection, intramural hematoma or aneurysm. Lymph Nodes: There is no significant intrathoracic or axillary lymphadenopathy on CT size criteria. Lower Neck: Visualized portions of the thyroid gland are unremarkable. Mediastinum: Heart size is normal. There is no pericardial effusion. The esophagus is unremarkable. Musculoskeletal: No aggressive focal bony lesions, acute fractures or dislocation. Chest wall: Unremarkable Partially visualized upper abdomen is grossly unremarkable. IMPRESSION: 1. No evidence of acute or chronic pulmonary embolism. 3.PROCEDURE(s): CXR1 - CHEST XRAY 1 VIEW REASON: penumonia? ORDER NUMBER(s): [id number], ACCESSION NUMBER(s): [id number] CHEST RADIOGRAPH Indication: penumonia Technique: Single frontal view of the chest was obtained. Comparison: XY CHEST PORTABLE on DOS: 01/03/25 Findings: Right basilar atelectasis. No significant pleural effusion. No pneumothorax. Stable cardiomediastinal silhouette. IMPRESSION: Right basilar atelectasis. 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 Discharge Disposition: Home Discharge Instruct/Medications Diet: Cardiac 2g Na,low cholest Activity: No Restrictions, As Tolerated Follow Up/Referral: Follow-up in discharge Clinic in 1 week Follow-up with PCP in 1-2 weeks Medications: as per EMR Scheduled Albuterol Sulfate (Albuterol Sulfate Hfa), 2 PUFF INH Q6HR Amlodipine Besylate (Amlodipine Besylate), 1 TAB PO DAILY Apixaban Base (Eliquis), 5 MG PO BID Aspirin (Aspirin Low Dose), 1 TAB PO DAILY, (Reported) Azithromycin (Azithromycin), 500 MG PO DAILY Budesonide-Formoterol Fumarate (Breyna 80-4.5 Mcg/Act), 1 AER IN DAILY Doxycycline (Monohydrate) (Doxycycline), 100 MG PO BID Doxycycline Monohydrate (Doxycycline Monohydrate), 100 MG PO Q12HR Hctz (Hydrochlorothiazide), 1 TAB PO QAM, (Reported) Memantine Hydrochloride (Memantine HCl), 1 TAB PO BID, (Reported) Prednisone (Prednisone), 20 MG PO DAILY Umeclidinium [place] (Incruse Ellipta), 62.5 MCG IN DAILY Scheduled PRN Albuterol Sulfate (Ventolin Mdi), 90 MCG IN QID PRN Albuterol Sulfate (Ventolin Mdi), 90 MCG IN QID PRN Ipratropium-Albuterol (Ipratropium [place]/Albut), 2 PUFF INH PRN PRN for SHORTNESS OF BREATH Discharge Statement: "Patient was advised to return to the ER or call 911 if any headaches, dizziness, shortness of breath, chest pain, abdominal pain, bleeding, fevers, or worsening of medical condition. Patient was counseled about treatment plan, medications, possible side effects, patientverbalized understanding. All questions were answered to the best of my ability. This discharge took greater then 30 minutes in planning, reviewing documentation, counseling the patient, and discussing with other team members." ASSESSMENT ASSESSMENT Assessment Acute COPD exacerbation Date of Service: Jan 10, 2025 Billing Provider: JOSE L SHANKS MD Common Visit Codes: 60870-KML/OBS DISCH DAY >30min STEFFI RODRIGUEZ RESIDENT Jan 10, 2025 17:28
[2025-01-10] MEDS ORDERED: IPRATROPIUM BROM 0.5 MG/2.5ML INH SOL ONE (17:55)
[2025-01-10] MEDS ORDERED: ALBUTEROL SULF 2.5 MG/0.5ML(0.5%) NEB SOLN ONE (17:55)
== END 2025-01-10 16:39 | disposition home health service (06) | DRG 177 ==
LOC: EDBD 14:20 → ER 14:20 → OVERFLOW 16:56 → TELE-WESTW 01-04 21:49 → WEST WING 01-08 23:57
PROVIDERS: ADMIT Internal Medicine; ATTEND Internal Medicine
PROC: 5A09357 Assistance with Respiratory Ventilation, Less than 24 Consecutive Hours, Continuous Positive Airway Pressure (ICD-10-PCS; principal; 2025-01-03)
DX: J15.69 Pneumonia due to other Gram-negative bacteria (principal); J96.21 Acute and chronic respiratory failure with hypoxia; R65.11 Systemic inflammatory response syndrome (SIRS) of non-infectious origin with acute organ dysfunction; E87.29 Other acidosis; E87.20 Acidosis, unspecified; J90 Pleural effusion, not elsewhere classified; J44.0 Chronic obstructive pulmonary disease with (acute) lower respiratory infection; J15.9 Unspecified bacterial pneumonia; R56.9 Unspecified convulsions; I10 Essential (primary) hypertension; I69.334 Monoplegia of upper limb following cerebral infarction affecting left non-dominant side; J44.1 Chronic obstructive pulmonary disease with (acute) exacerbation; Z87.891 Personal history of nicotine dependence; I25.2 Old myocardial infarction; Z85.118 Personal history of other malignant neoplasm of bronchus and lung; Z79.899 Other long term (current) drug therapy
CPT/HCPCS: 36415; 36600; 71045; 71275; 80048; 81001; 82805; 83605; 83880; 84484; 85025; 85379; 87040; 87070; 87081; 87205; 87426; 87804; 93005; 93306; 94640; 96365; 99291; G0378; J2543

== ENCOUNTER 2025-02-08 19:22 | Inpatient (IN) | payer MEDICARE, MEDICAID ==
[~2025-02-08] VITALS: Ht 165.1 cm; Wt 67.8 kg
[~2025-02-08 19:22] MED LIST changes: +BUDE1AER15 IN; +DOX100T PO; +UMEC1INH IN
--- NOTE | 2025-02-08 20:17 | ED.PDOC ---
History of Present Illness HPI Comments 69-year-old male who came to ER for shortness of breath since yesterday. He does have history of COPD and lung cancer. He is not on home oxygen. Has been having dry nonproductive cough and shortness of breath progressively worsened today. Was saturating 85% on room air upon arrival. Denies significant chest pains REVIEW OF SYSTEMS: General: No fever, no chills, or fatigue HEENT: No sore throat, no earache, no congestion, no neck pain. Cardiac: No chest pain. No palpitations. Lungs: (+) shortness of breath, (+) cough. GI: No nausea, no vomiting, no diarrhea, no constipation, no abdominal pain : No dysuria, frequency, or urgency. No hematuria. Musculoskeletal: No joint pain , no joint swelling, no extremity edema. Skin: No rash, no itching. Neuro: No headache, no dizziness, no weakness EXAM: General: Awake, alert and oriented. No acute distress. Skin: Skin in warm, dry and intact. Appropriate color for ethnicity. HEENT: The head is normocephalic and atraumatic. Conjunctivae are clear without exudates or hemorrhage. Sclera is non-icteric. EOM are intact. No signs of nystagmus. Eyelids are normal in appearance without swelling or lesions. Oral mucosa is pink and moist Neck: The neck is supple with normal range of motion. No JVD. Cardiac: Heart rate and rhythm are normal. No murmurs, gallops, or rubs are auscultated. Respiratory: No signs of respiratory distress. Wheezes bilaterally. Abdominal: Abdomen is soft, non-tender without distention. Bowel sounds are present and normoactive in all four quadrants. Extremities: Upper and lower extremities are atraumatic in appearance without deformity or edema. Neurological: The patient is awake, alert and oriented to person, place, and time with normal speech. Speech is clear. There is no facial asymmetry. Psychiatric: Appropriate mood and affect. Good judgement and insight Chief Complaint: Shortness of Breath Time Seen by MD: 20:15 Primary Care Provider: NONE Reviewed Notes: Nurses Notes Allergies: Coded Allergies: NO KNOWN ALLERGIES (Unverified , 03/24/22) Home Meds Active Scripts Prednisone (Prednisone) 20 Mg Tab, 40 MG PO DAILY for 3 Days, #6 TAB Prov:DEJAH PERRY RESIDENT 12/26/25 Azithromycin (Azithromycin) 250 Mg Tab, 500 MG PO DAILY for 5 Days, #10 TAB Prov:DEJAH PERRY RESIDENT 02/09/25 Budesonide-Formoterol Fumarate (Breyna 80-4.5 Mcg/Act) 1 Aer Aer, 1 AER IN DAILY for 30 Days, #1 AER Prov:NIKI DRAKE RESIDENT 01/10/25 Umeclidinium [place] (Incruse Ellipta) 62.5 Mcg/Inh Inh, 62.5 MCG IN DAILY for 30 Days, #1 INHALER 1 Refill Prov:NIKI DRAKE RESIDENT 01/10/25 Doxycycline Monohydrate (Doxycycline Monohydrate) 100 Mg Tab, 100 MG PO Q12HR for 5 Days, #10 TAB Prov:NIKI DRAKE RESIDENT 01/10/25 Doxycycline (Monohydrate) (Doxycycline) 100 Mg Cap, 100 MG PO BID for 7 Days, #14 CAP Prov:AVA SALCEDO [employer] STEAM [employer]TER 12/27/24 Prednisone (Prednisone) 20 Mg Tab, 20 MG PO DAILY for 7 Days, #7 MG Prov:AVA SALCEDO [employer] STEAM FITTER 12/27/24 Azithromycin (Azithromycin) 500 Mg Tab, 500 MG PO DAILY for 5 Days, #5 TAB Prov:JENNYNEVINJENNYMELLISSA RESDIENT 12/01/24 Albuterol Sulfate (Albuterol Sulfate Hfa) 108 Mcg/Act Aer, 2 PUFF INH Q6HR for 30 Days, #1 AER Prov:NIKI DRAKE RESIDENT 11/10/24 Albuterol Sulfate (VENTOLIN MDI) 90 Mcg Ih, 90 MCG IN QID PRN, #1 INH Prov:VALERIO HOLDER MD 10/20/24 Ipratropium-Albuterol (Ipratropium [place]/Albut) 1 Amanda Amanda, 2 PUFF INH PRN PRN for SHORTNESS OF BREATH for 30 Days, #3 PUFF Prov:BIRDIE AIKEN RESIDENT 09/07/24 Albuterol Sulfate (VENTOLIN MDI) 90 Mcg Ih, 90 MCG IN QID PRN, #1 INH Prov:VALERIO HOLDER MD 06/16/24 Amlodipine Besylate (Amlodipine Besylate) 10 Mg Tab, 1 TAB PO DAILY, #90 TAB 1 Refill Prov:VALERIO HOLDER MD 07/17/21 Apixaban Base (ELIQUIS) 5 Mg Tab, 5 MG PO BID for 90 Days, #180 TAB Prov:DORIS DIAZ MD 06/18/20 Reported Medications Hctz (Hydrochlorothiazide) 25 Mg Tab, 1 TAB PO QAM for 30 Days, #30 11/08/24 Aspirin (Aspirin Low Dose) 81 Mg Tab, 1 TAB PO DAILY 10/17/24 Memantine Hydrochloride (Memantine HCl) 10 Mg Tab, 1 TAB PO BID 04/06/23 Information Source: Patient Mode of Arrival: EMS Past Medical History PAST MEDICAL HISTORY: Asthma, Cancer, COPD, CVA, HTN, [place], PE Surgical History: Denies all surgeries Family History Family History: Reviewed,noncontributory to illness, Family hx of Cancer Social History Smoker: Quit Greater Than 1 Year, Cigarettes Alcohol: Denies ETOH Use Drugs: Denies Drug Use Lives In: Home Was a procedure done? Was a procedure done?: No Differential Dx Considerations may include: Anemia, electrolyte imbalance, COPD, lung cancer X-Ray, Labs, Meds, VS Vital Signs Date Time Temp Pulse Resp B/P (MAP) Pulse Ox O2 Delivery O2 Flow Rate FiO2 02/08/25 23:18 70 18 99 Nasal Cannula* 2 28 02/08/25 23:17 97.9 70 18 118/70 (86) 99 97.9 02/08/25 22:40 18 97 Nasal Cannula* 2 28 02/08/25 22:32 98.1 68 19 122/67 (85) 100 98.1 02/08/25 19:28 99.4 95 16 117/72 99 99.4 Lab Test 02/08/25 22:27 02/08/25 22:06 02/08/25 21:25 02/08/25 21:12 Range/Units Lactic Acid Level 2.0 0.4-2.0 mmol/L Blood Gas Specimen Type Arterial Blood Gas Sample Site Right brachial Blood Gas Patient Temperature 37.0 Arterial Blood Date Drawn [id number] Arterial Blood pH 7.436 7.350-7.450 Arterial Blood Partial Pressure CO2 37.4 35.0-48.0 mmHg Arterial Blood Partial Pressure O2 76.3 L 83.0-108.0 mmHg Arterial Blood HCO3 24.6 21.0-28.0 mmol/L Arterial Blood Oxygen Saturation 95.1 94.0-98.0 % Arterial Blood Base Excess 0.6 -2.0-3.0 mmol/L Arterial Blood Oxyhemoglobin 93.3 L 94.0-98.0 % Arterial Blood Carboxyhemoglobin 1.0 0.5-1.5 % Arterial Blood Methemoglobin 0.9 0.0-1.5 % Arterial Blood Deoxyhemoglobin 4.8 0.0-5.0 % Chema Test Yes Blood Gas Total Hemoglobin 13.90 13.5-17.5 g/dL Blood Gas Modality Room air FiO2 % 21.0 Troponin I High Sensitivity 6 </=54 ng/L Influenza Type A Antigen Negative Negative Influenza Type B Antigen Negative Negative SARS-CoV-2 Antigen (Rapid) Negative NEGATIVE Test 02/08/25 20:30 Range/Units White Blood Count 8.8 4.4-10.8 10^3/uL Red Blood Count 4.96 4.5-5.90 10^6/uL Hemoglobin 13.3 L 13.5-17.5 g/dL Hematocrit 41.5 41.0-53.0 % Mean Corpuscular Volume 83.7 80.0-100.0 fL Mean Corpuscular Hemoglobin 26.9 L 28.0-32.0 pg Mean Corpuscular Hemoglobin Concent 32.2 32.0-36.0 g/dL Red Cell Distribution Width 17.0 H 11.8-14.3 % Platelet Count 374 140-450 10^3/uL Mean Platelet Volume 7.6 6.9-10.8 fL Neutrophils (%) (Auto) 74.8 37.0-80.0 % Lymphocytes (%) (Auto) 11.9 10.0-50.0 % Monocytes (%) (Auto) 8.9 0.0-12.0 % Eosinophils (%) (Auto) 3.6 0.0-7.0 % Basophils (%) (Auto) 0.8 0.0-2.0 % Neutrophils # (Auto) 6.6 1.6-8.6 10 ^3/uL Lymphocytes # (Auto) 1.0 0.4-5.4 10 ^3/uL Monocytes # (Auto) 0.8 0-1.3 10 ^3/uL Eosinophils # (Auto) 0.3 0-0.8 10 ^3/uL Basophils # (Auto) 0.1 0-0.2 10 ^3/uL Nucleated Red Blood Cells 0.1 % D-Dimer, Quantitative 0.25 0.0-0.49 mg/L FEU Sodium Level 146 H 136-145 mmol/L Potassium Level 3.6 3.5-5.1 mmol/L Chloride Level 109 H 98-107 mmol/L Carbon Dioxide Level 27 20-31 mmol/L Anion Gap 10 5-15 Blood Urea Nitrogen 10 9-23 mg/dL Creatinine 1.15 0.700-1.30 mg/dL Glomerular Filtration Rate Calc 69 >90 mL/min BUN/Creatinine Ratio 8.7 L 10.0-20.0 Serum Glucose 172 H 74-106 mg/dL Lactic Acid Level 2.4 *H 0.4-2.0 mmol/L Calcium Level 9.6 8.7-10.4 mg/dL Total Bilirubin 0.3 0.2-1.0 mg/dL Aspartate Amino Transferase (AST) 27 13-40 U/L Alanine Aminotransferase (ALT) 27 7-40 U/L Alkaline Phosphatase 133 H 46-116 U/L Troponin I High Sensitivity 5 </=54 ng/L B-Type Natriuretic Peptide 20.31 0-100 pg/mL Total Protein 6.6 5.7-8.2 g/dL Albumin 4.2 3.2-4.8 g/dL EXAM: XY CHEST XRAY 1 VIEW CLINICAL HISTORY: Shortness of breath TECHNIQUE: Single AP view of the chest WID: COMPARISON: XY CHEST XRAY 1 VIEW on DOS: 01/09/25 FINDINGS: Lines and tubes: None Chest: The heart size and pulmonary vasculature is within normal limits. Calcified plaque projects Over the aortic arch. Unchanged blunting of the right costophrenic angle. Linear bibasilar scarring or atelectasis. No pneumothorax. The osseous structures are grossly intact. Multilevel thoracic spondylosis. IMPRESSION: 1. Unchanged blunting of the right costophrenic angle likely scarring. 2. Linear bibasilar scarring and/or atelectasis. Time of 1ST Reevaluation: 20:08 Reevaluation 1ST: Unchanged Patient Education/Counseling: Need For Follow Up Family Education/Counseling: No Family Present SEPSIS Sepsis Screen Date sepsis recognized/suspect: Feb 08, 2025 Time Sepsis recognized/suspect: 1924 Recent Procedure: No On Antibiotic Therapy: No Respiratory Rate >20: No Heart Rate >90: Yes Temp<36 C (96.8 F) or >38.3 C: No SBP <90 or MAP <65 mmHG: No New Acute Mental Status Change: No Is the patient on CPAP, BIPAP,: No Physician Orders Electrocardigram (02/08/25 19:38) Electrocardigram (02/08/25 20:38) Chest Xray 1 View (02/08/25 20:17) Abg W/ Co-Ox (02/08/25 20:19) Vital Signs Date Time Temp Pulse Resp B/P (MAP) Pulse Ox O2 Delivery O2 Flow Rate FiO2 02/08/25 23:18 70 18 99 Nasal Cannula* 2 28 02/08/25 23:17 97.9 70 18 118/70 (86) 99 97.9 02/08/25 22:40 18 97 Nasal Cannula* 2 28 02/08/25 22:32 98.1 68 19 122/67 (85) 100 98.1 02/08/25 19:28 99.4 95 16 117/72 99 99.4 Laboratory Tests Test 02/08/25 20:30 02/08/25 22:27 Lactic Acid Level 2.4 mmol/L (0.4-2.0) *H 2.0 mmol/L (0.4-2.0) White Blood Count 8.8 10^3/uL (4.4-10.8) Departure 1 Departure Time of Disposition: 22:44 Impression: Primary Impression: COPD with acute exacerbation Additional Impression: Hypoxia Disposition: 09 ADMITTED INPATIENT Condition: Stable e-Prescriptions Prednisone (Prednisone) 20 Mg Tab 40 MG PO DAILY for 3 Days, #6 TAB Prov: DEJAH PERRY RESIDENT 02/09/25 Azithromycin (Azithromycin) 250 Mg Tab 500 MG PO DAILY for 5 Days, #10 TAB Prov: DEJAH PERRY RESIDENT 02/09/25 Comments Patient admitted to hospitalist service for further treatment, evaluation and monitoring. Critical Care Note Critical Care Time?: No Stability Stability form required: No Heart Score Heart Score: Heart Score Response (Comments) Value History N/A 0 EKG N/A 0 Age N/A 0 Risk Factors N/A 0 Troponin N/A 0 Total 0 I personally scribed for CANDIDO WADE MD ([email or web address]) on 02/08/25 at 20:17. Electronically submitted by Nas Patton (LANBiglionCHRISTIAN). I personally scribed for CANDIDO WADE MD ([email or web address]) on 02/08/25 at 22:06. Electronically submitted by Nas Patton ([email or web address]). CANDIDO WADE MD Feb 08, 2025 20:17
[2025-02-08 20:50] LABS: Hematocrit 41.5 % (41.0-53.0); Hemoglobin 13.3 g/dL (13.5-17.5); Mean Corpuscular Hemoglobin 26.9 pg (28.0-32.0); Mean Corpuscular Volume 83.7 fL (80.0-100.0); Nucleated Red Blood Cells % 0.1 %
[2025-02-08 21:06] LABS: Alanine Aminotransferase 27 U/L (7-40); Anion Gap 10 (5-15); Calcium 9.6 mg/dL (8.7-10.4); Carbon Dioxide 27 mmol/L (20-31); Potassium 3.6 mmol/L (3.5-5.1); Total Protein 6.6 g/dL (5.7-8.2)
[2025-02-08 21:07] LABS: Albumin 4.2 g/dL (3.2-4.8); Alkaline Phosphatase 133 U/L (46-116); BUN/Creatinine Ratio 8.7 (10.0-20.0); Blood Urea Nitrogen 10 mg/dL (9-23); Chloride 109 mmol/L (98-107); Glucose 172 mg/dL (74-106); Sodium 146 mmol/L (136-145)
[2025-02-08 21:08] LABS: Bilirubin, Total 0.3 mg/dL (0.2-1.0)
[2025-02-08 21:09] LABS: Lactic Acid w/Reflex 2.4 mmol/L (0.4-2.0)
--- NOTE | 2025-02-08 21:49 | DVH ---
EXAM: XY CHEST XRAY 1 VIEW CLINICAL HISTORY: Shortness of breath TECHNIQUE: Single AP view of the chest WID: COMPARISON: XY CHEST XRAY 1 VIEW on DOS: 01/09/25 FINDINGS: Lines and tubes: None Chest: The heart size and pulmonary vasculature is within normal limits. Calcified plaque projects Over the aortic arch. Unchanged blunting of the right costophrenic angle. Linear bibasilar scarring or atelectasis. No pneumothorax. The osseous structures are grossly intact. Multilevel thoracic spondylosis. IMPRESSION: 1. Unchanged blunting of the right costophrenic angle likely scarring. 2. Linear bibasilar scarring and/or atelectasis.
[2025-02-08 22:11] LABS: Base Excess 0.6 mmol/L (-2.0-3.0)
[2025-02-08 22:35] LABS: COVID19 ANTIGEN SOFIA FIA NEGATIVE (NEGATIVE)
[2025-02-08] MEDS: methylPREDNISolone SOD SUCC 125 MG/2 ML VL IV ONE (23:09)
[2025-02-08 23:18] VITALS: PULSE 70; RESP 18; O2SAT 99
[2025-02-09] VITALS (19 sets, daily range): BP systolic 113–131; BP diastolic 61–78; PULSE 70–91; RESP 14–18; TEMP 97.5–98.3; O2SAT 95–100
--- NOTE | 2025-02-09 04:16 | DVHHPRES ---
History of Present Illness Resident Creating Document: JO ANN ALARCON RESIDENT History of Present Illness Patient is a 69-year-old male with past medical history of COPD on 2 L home oxygen, PE, lung cancer status post lobectomy on the right side, CVA, SC, who presented to the ED with chief complaints of shortness of breath since yesterday. Patient has been hospitalized recently for the same reason. Denies any fever, chills, cough, nausea, vomiting, diarrhea. Patient in the ED is on 2 L oxygen. Past medical history: hypertension, PE, COPD on 2 L home oxygen, lung cancer status post lobectomy right side, CVA, SC Past surgical history: Lobectomy for lung cancer, right patella surgery Social & Personal history: Patient denies current smoking, alcohol, drug use but was an ex heavy smoker Home medications: Eliquis 5 mg b.i.d., aspirin 81 daily, hydrochlorothiazide 25 daily, albuterol inhaler, nebulizer Allergies: Denies Patient seen in the lobby. Patient states that he has mild shortness of breath , denies any chest pain, cough, nausea, vomiting. Review of Systems Constitutional: No: Fever, Chills, Sweats, Weakness, Malaise, Other Eyes: No: Pain, Vision change, Conjunctivae inflammation, Eyelid inflammation, Other, Redness ENT: No: Ear pain, Ear discharge, Nose pain, Nose discharge, Nose congestion, Mouth pain, Mouth swelling, Throat pain, Throat swelling, Other Respiratory: Cough, Shortness of breath; No: Dry, SOB with excertion, Wheezing, Hemoptysis, Pleuritic Pain, Sputum, Wheezing, Other Cardiovascular: No: Chest Pain, Palpitations, Orthopnea, Paroxysmal Noc. Dyspnea, Edema, Lt Headedness, Other Gastrointestinal: No: Nausea, Vomiting, Abdominal Pain, Diarrhea, Constipation, Melena, Hematochezia, Other Genitourinary: No Dysuria, No Frequency, No Incontinence, No Hematuria, No Retention, No Other Musculoskeletal: No: other, neck pain, shoulder pain, arm pain, back pain, hand pain, leg pain, foot pain Skin: No: Rash, Lesions, Jaundice, Bruising, Other Neurological: No: Weakness, Numbness, Incoordination, Change in speech, Confusion, Seizures, Other Allergies: Coded Allergies: NO KNOWN ALLERGIES (Unverified , 03/24/22) Medications Current Medications Medications Dose Ordered Sig/Arnaldo Route Start Time Stop Time Status Last Admin Dose Admin Albuterol 2.5 mg Q4HWA [facility] 02/09/25 06:00 Ipratropium [place] 0.5 mg Q4HWA [facility] 02/09/25 06:00 Prednisone 40 mg DAILY PO 02/09/25 10:00 Azithromycin 500 mg DAILY PO 02/09/25 10:00 UNV Aspirin 81 mg DAILY PO 02/09/25 10:00 Amlodipine Besylate 10 mg DAILY PO 02/09/25 10:00 Memantine 10 mg Q12HR PO 02/09/25 10:00 Azithromycin 500 mg DAILY PO 02/09/25 10:00 UNV Enoxaparin Sodium 70 mg Q12HR [place] 02/09/25 10:00 UNV Exam Vital Signs Vital Signs Date Time Temp Pulse Resp B/P (MAP) Pulse Ox O2 Delivery O2 Flow Rate FiO2 02/09/25 04:03 97.5 72 18 125/78 96 2.0 97.5 02/08/25 23:18 Nasal Cannula* 28 Exam General: Patient alert and oriented in person, place and time. Patient following commands. HEENT: Normocephalic, atraumatic, moist mucous membranes Respiratory/pulmonary: Bilateral crackles on auscultation Cardiovascular: Normal heart sounds S1 and S2 with no associated murmurs Abdomen: Abdomen nondistended, there is no pain to palpation in any of the abdominal quadrants, no palpable masses. Extremities: There is no peripheral edema present at the lower extremities. Peripheral Pulses: 3+ Radial (R). 3+ Radial (L). 3+ Dorsalis pedis (R). 3+ Dorsalis pedis(L) Skin: No rashes or pruritus, there is no sacral edema present at this time. Neurological: Intact cranial nerves with no focal neurologic deficits Labs/Xrays Labs Test 02/08/25 22:27 02/08/25 22:06 02/08/25 21:25 02/08/25 21:12 Range/Units Lactic Acid Level 2.0 0.4-2.0 mmol/L Blood Gas Specimen Type Arterial Blood Gas Sample Site Right brachial Blood Gas Patient Temperature 37.0 Arterial Blood Date Drawn [id number] Arterial Blood pH 7.436 7.350-7.450 Arterial Blood Partial Pressure CO2 37.4 35.0-48.0 mmHg Arterial Blood Partial Pressure O2 76.3 L 83.0-108.0 mmHg Arterial Blood HCO3 24.6 21.0-28.0 mmol/L Arterial Blood Oxygen Saturation 95.1 94.0-98.0 % Arterial Blood Base Excess 0.6 -2.0-3.0 mmol/L Arterial Blood Oxyhemoglobin 93.3 L 94.0-98.0 % Arterial Blood Carboxyhemoglobin 1.0 0.5-1.5 % Arterial Blood Methemoglobin 0.9 0.0-1.5 % Arterial Blood Deoxyhemoglobin 4.8 0.0-5.0 % Chema Test Yes Blood Gas Total Hemoglobin 13.90 13.5-17.5 g/dL Blood Gas Modality Room air FiO2 % 21.0 Troponin I High Sensitivity 6 </=54 ng/L Influenza Type A Antigen Negative Negative Influenza Type B Antigen Negative Negative SARS-CoV-2 Antigen (Rapid) Negative NEGATIVE Test 02/08/25 20:30 Range/Units White Blood Count 8.8 4.4-10.8 10^3/uL Red Blood Count 4.96 4.5-5.90 10^6/uL Hemoglobin 13.3 L 13.5-17.5 g/dL Hematocrit 41.5 41.0-53.0 % Mean Corpuscular Volume 83.7 80.0-100.0 fL Mean Corpuscular Hemoglobin 26.9 L 28.0-32.0 pg Mean Corpuscular Hemoglobin Concent 32.2 32.0-36.0 g/dL Red Cell Distribution Width 17.0 H 11.8-14.3 % Platelet Count 374 140-450 10^3/uL Mean Platelet Volume 7.6 6.9-10.8 fL Neutrophils (%) (Auto) 74.8 37.0-80.0 % Lymphocytes (%) (Auto) 11.9 10.0-50.0 % Monocytes (%) (Auto) 8.9 0.0-12.0 % Eosinophils (%) (Auto) 3.6 0.0-7.0 % Basophils (%) (Auto) 0.8 0.0-2.0 % Neutrophils # (Auto) 6.6 1.6-8.6 10 ^3/uL Lymphocytes # (Auto) 1.0 0.4-5.4 10 ^3/uL Monocytes # (Auto) 0.8 0-1.3 10 ^3/uL Eosinophils # (Auto) 0.3 0-0.8 10 ^3/uL Basophils # (Auto) 0.1 0-0.2 10 ^3/uL Nucleated Red Blood Cells 0.1 % D-Dimer, Quantitative 0.25 0.0-0.49 mg/L FEU Sodium Level 146 H 136-145 mmol/L Potassium Level 3.6 3.5-5.1 mmol/L Chloride Level 109 H 98-107 mmol/L Carbon Dioxide Level 27 20-31 mmol/L Anion Gap 10 5-15 Blood Urea Nitrogen 10 9-23 mg/dL Creatinine 1.15 0.700-1.30 mg/dL Glomerular Filtration Rate Calc 69 >90 mL/min BUN/Creatinine Ratio 8.7 L 10.0-20.0 Serum Glucose 172 H 74-106 mg/dL Calcium Level 9.6 8.7-10.4 mg/dL Total Bilirubin 0.3 0.2-1.0 mg/dL Aspartate Amino Transferase (AST) 27 13-40 U/L Alanine Aminotransferase (ALT) 27 7-40 U/L Alkaline Phosphatase 133 H 46-116 U/L B-Type Natriuretic Peptide 20.31 0-100 pg/mL Total Protein 6.6 5.7-8.2 g/dL Albumin 4.2 3.2-4.8 g/dL SEPSIS Sepsis Screen Date sepsis recognized/suspect: Feb 08, 2025 Time Sepsis recognized/suspect: 2316 Recent Procedure: No On Antibiotic Therapy: No Respiratory Rate >20: No Heart Rate >90: No Temp<36 C (96.8 F) or >38.3 C: No SBP <90 or MAP <65 mmHG: No New Acute Mental Status Change: No Is the patient on CPAP, BIPAP,: No Physician Orders Chest Xray 1 View (02/08/25 20:17) Abg W/ Co-Ox (02/08/25 20:19) Admit (02/08/25 23:55) Complete Blood Count (02/09/25 04:00) Comprehensive Metabolic Panel (02/09/25 04:00) Cardiac Diet-2gna,Lofat,Lochol (02/09/25 Breakfast) Condition: Critical (02/08/25 23:55) Bedrest With Bathroom Privileg (02/08/25 23:55) Oxygen By Nasal Cannula (02/08/25 23:55) Stat Ekg For Chest Pain (02/08/25 23:55) Notify Of Changes From Base (02/08/25 23:55) Chiropractor Assistant For 24 Hours (02/08/25 23:55) Emergency Dysrhythmia Protocol (02/08/25 23:55) Rhythm Strips Once Every Shift (02/08/25 23:55) Albuterol Medneb (Ventolin Medneb) (02/09/25 06:00) Ipratropium Medneb (Atrovent Medneb) (02/09/25 06:00) Prednisone Tablet (02/09/25 10:00) Aspirin Enteric Coated Tablet (Ecotrin E (02/09/25 10:00) Amlodipine Tablet (Norvasc Tablet) (02/09/25 10:00) Memantine Tablet (Namenda Tablet) (02/09/25 10:00) Urinalysis (02/09/25 03:33) Drug Screen (02/09/25 03:33) Azithromycin Tablet (Zithromax Tablet) (02/09/25 10:00) Enoxaparin Sodium (Lovenox) (02/09/25 10:00) Vital Signs Date Time Temp Pulse Resp B/P (MAP) Pulse Ox O2 Delivery O2 Flow Rate FiO2 02/09/25 04:03 97.5 72 18 125/78 96 2.0 97.5 02/09/25 02:02 97.5 72 17 125/78 (94) 96 97.5 02/09/25 02:00 97.5 72 18 125/78 (94) 96 97.5 02/08/25 23:18 70 18 99 Nasal Cannula* 2 28 02/08/25 23:17 97.9 70 18 118/70 (86) 99 97.9 02/08/25 22:40 18 97 Nasal Cannula* 2 28 02/08/25 22:32 98.1 68 19 122/67 (85) 100 98.1 Laboratory Tests Test 02/08/25 20:30 02/08/25 22:27 Lactic Acid Level 2.4 mmol/L (0.4-2.0) *H 2.0 mmol/L (0.4-2.0) White Blood Count 8.8 10^3/uL (4.4-10.8) Medications Medications Dose Ordered Sig/Arnaldo Route Start Time Stop Time Status Last Admin Dose Admin Methylprednisolone Sodium Succinate 80 mg ONCE ONCE IV 02/08/25 22:45 02/08/25 22:46 DC 02/08/25 23:09 80 MG Assessment/Plan Assessment/Plan Acute on chronic hypoxic respiratory failure COPD exacerbation - albuterol, ipratropium - azithromycin - prednisone 40 hypertension - resume home meds hypernatremia - monitor labs Lactic acidosis - resolved history of pulmonary embolism - therapeutic Lovenox History of lung cancer history of SC history of CVA DVT prophylaxis: therapeutic Lovenox Goals of care addressed with the patient for more than 27 minutes: Full code status Case discussed with Dr. Pires, patient, nurse Plan discussed with: Patient My Orders Orders - JO ANN ALARCON RESIDENT Procedure Category Date Status Time Admit ADMIT 02/08/25 Transmitted 23:55 Complete Blood Count LAB 02/09/25 Logged 04:00 Comprehensive LAB 02/09/25 Logged Metabolic Panel 04:00 Cardiac DIET 02/09/25 Transmitted Diet-2gna,Lofat,Lochol Breakfast Condition: Critical [facility] 02/08/25 In Process 23:55 Bedrest With Bathroom [facility] 02/08/25 In Process Privileg 23:55 Oxygen By Nasal RT 02/08/25 Transmitted Cannula 23:55 Stat Ekg For Chest [facility] 02/08/25 In Process Pain 23:55 Notify Of Changes [facility] 02/08/25 In Process From Base 23:55 Chiropractor Assistant For [facility] 02/08/25 In Process 24 Hours 23:55 Emergency Dysrhythmia [facility] 02/08/25 In Process Protocol 23:55 Rhythm Strips Once [facility] 02/08/25 In Process Every Shift 23:55 Albuterol Medneb PHA 02/09/25 In Process (Ventolin Medneb) 06:00 Ipratropium Medneb PHA 02/09/25 In Process (Atrovent Medneb) 06:00 Prednisone Tablet PHA 02/09/25 In Process 10:00 Aspirin Enteric PHA 02/09/25 In Process Coated Tablet 10:00 Amlodipine Tablet PHA 02/09/25 In Process (Norvasc Tablet) 10:00 Memantine Tablet PHA 02/09/25 In Process (Namenda Tablet) 10:00 Urinalysis LAB 02/09/25 Logged 03:33 Drug Screen LAB 02/09/25 Logged 03:33 Azithromycin Tablet PHA 02/09/25 Pending (Zithromax Tablet) 10:00 Enoxaparin Sodium PHA 02/09/25 Logged (Lovenox) 10:00 Visit Coding STANDARD RES Billing Provider: TIFFANIE PIRES MD Date of Service if different f: Feb 08, 2025 Common Visit Codes: [id number] INP/OBS CARE (HIGH) Secondary Visit Codes: [id number] CARE PLAN 30 MINUTES JO ANN ALARCON RESIDENT Feb 09, 2025 04:16
[2025-02-09] MEDS: AZITHROMYCIN 250 MG TAB PO ONE (06:14)
[2025-02-09] MEDS: IPRATROPIUM BROM 0.5 MG/2.5ML INH SOL NEB SCH (06:40)
[2025-02-09 06:50] LABS: Hematocrit 37.5 % (41.0-53.0); Hemoglobin 12.2 g/dL (13.5-17.5); Mean Corpuscular Hemoglobin 26.9 pg (28.0-32.0); Mean Corpuscular Volume 82.8 fL (80.0-100.0); Nucleated Red Blood Cells % 0.0 %
[2025-02-09 06:56] LABS: Alanine Aminotransferase 25 U/L (7-40); Albumin 3.8 g/dL (3.2-4.8); Anion Gap 10 (5-15); BUN/Creatinine Ratio 12.0 (10.0-20.0); Blood Urea Nitrogen 14 mg/dL (9-23); Calcium 9.2 mg/dL (8.7-10.4); Carbon Dioxide 28 mmol/L (20-31); Chloride 106 mmol/L (98-107); Potassium 3.8 mmol/L (3.5-5.1); Sodium 144 mmol/L (136-145); Total Protein 6.1 g/dL (5.7-8.2)
[2025-02-09 07:07] LABS: Alkaline Phosphatase 117 U/L (46-116); Glucose 260 mg/dL (74-106)
[2025-02-09 07:08] LABS: Bilirubin, Total 0.2 mg/dL (0.2-1.0)
[2025-02-09] MEDS: IPRATROPIUM BROM 0.5 MG/2.5ML INH SOL NEB ONE (08:35)
[2025-02-09] MEDS: ALBUTEROL SULF 2.5 MG/0.5ML(0.5%) NEB SOLN NEB ONE (08:35)
[2025-02-09] MEDS: ALBUTEROL SULF 2.5 MG/0.5ML(0.5%) NEB SOLN NEB SCH (08:39)
[2025-02-09] MEDS: ENOXAPARIN SOD 100 MG/1 ML SYRINGE SC SCH (09:15)
[2025-02-09] MEDS: predniSONE 20 MG TAB PO SCH (09:16)
[2025-02-09] MEDS: MEMANTINE HCL 5 MG TAB PO SCH (09:16)
[2025-02-09] MEDS: ASPirin-EC 81 mg tab PO SCH (09:16)
[2025-02-09] MEDS ORDERED: AZITHROMYCIN 250 MG TAB PO SCH (10:00)
[2025-02-09] MEDS ORDERED: ENOXAPARIN SOD 40 MG/0.4 ML SYRINGE SC SCH (10:00)
--- NOTE | 2025-02-09 13:36 | DVHPNRES ---
Progress Note Date Seen: Feb 09, 2025 Resident Creating Document: KEITH ARREOLA RESIDENT Medical Necessity Reason Pt with a Central, PICC or Fol: No Subjective Review of Systems The patient was seen and examined at bedside. Overnight complaints reviewed. He reports feeling better. No other new complaints reported. Objective vital signs Vital Sign Date Time Temp Pulse Resp B/P (MAP) Pulse Ox O2 Delivery O2 Flow Rate FiO2 02/09/25 13:22 98.2 83 16 131/72 (91) 99 98.2 02/09/25 11:47 Nasal Cannula 2.0 02/09/25 11:47 28 Total Intake and Output 02/08/25 02/08/25 02/09/25 15:00 23:00 07:00 Intake Total 0 ml Output Total 180 ml Balance -180 ml medications Current Medications Medications Dose Ordered Sig/Arnaldo Route Start Time Stop Time Status Last Admin Dose Admin Albuterol 2.5 mg Q4HWA [facility] 02/09/25 06:00 02/09/25 11:47 2.5 MG Ipratropium [place] 0.5 mg Q4HWA [facility] 02/09/25 06:00 02/09/25 11:47 0.5 MG Prednisone 40 mg DAILY PO 02/09/25 10:00 02/09/25 09:16 40 MG Azithromycin 500 mg DAILY PO 02/09/25 10:00 UNV Aspirin 81 mg DAILY PO 02/09/25 10:00 02/09/25 09:16 81 MG Amlodipine Besylate 10 mg DAILY PO 02/09/25 10:00 02/09/25 09:18 10 MG Memantine 10 mg Q12HR PO 02/09/25 10:00 02/09/25 09:16 10 MG Azithromycin 500 mg DAILY PO 02/10/25 10:00 Enoxaparin Sodium 70 mg Q12HR [facility] 02/09/25 10:00 02/09/25 09:15 70 MG Examination Exam Pt is lying on bed General Appearance: Nasal cannula was in place with 2 L oxygen, facial deviation towards the left side, Alert, Oriented X3, Cooperative, Mild distress HEENT: Atraumatic, Mucous membranes moist/pink Respiratory: Mild crackles present bilaterally, expiration was prolonged. Cardiovascular: Regular rate, Normal S1, Normal S2, No murmurs Abdominal/ : Active bowel sounds, Soft, no distention, no tenderness Extremities: No edema, Normal pulses, No tenderness/swelling Skin: No Significant rash, except past surgical scars Neuro: Left upper extremity weakness present 1+, left lower leg weaker than the right 4+ , sensorimotor deficits none Psych/Mental Status: Mental status NL, Mood NL Nurse was there as assembler wire group during examination laboratory and microbiology Laboratory Tests 02/09/25 04:59 Test 02/09/25 04:59 Range/Units Serum Glucose 260 H 74-106 mg/dL Labs and/or images reviewed: Labs reviewed by me, Image(s) reviewed by me Problem List/Assessment/Plan Problem List/Assessment/Plan Acute on chronic hypoxic respiratory failure COPD, on 2L home oxygen, exacerbation - Nasal Cannula Oxygen - Albuterol, Ipratropium - Azithromycin - Prednisone 40 mg orally Hypertensive heart disease - Amlodipine held due to soft BP Hypernatremia - Monitor labs Lactic acidosis - Resolved History of pulmonary embolism - Therapeutic Lovenox discontinued. CTA ruled out PE. - Eliquis 5 mg BID History of lung cancer -Follow up outpatient History of [place] (no stent) History of CVA -Aspirin 81 mg Diet: Cardiac DVT prophylaxis: lovenox Goals of care discussed with the patient for more than 27 minutes: Full code status Case discussed with , patient and RN Plan discussed with: Patient, Other Visit Coding STANDARD RES Billing Provider: JHON COLLINS MD Date of Service if different f: Feb 09, 2025 Common Visit Codes: [id number] INP/OBS CARE(HIGH) KEITH ARREOLA RESIDENT Feb 09, 2025 13:36
[2025-02-09] MEDS ORDERED: AZIT-43 PO (14:19)
[2025-02-09] MEDS ORDERED: PRED20TA2 PO ×2 (14:19→14:20)
[2025-02-09] MEDS: APIXABAN 5 MG TAB PO SCH (21:19)
[2025-02-10] VITALS (14 sets, daily range): BP systolic 108–124; BP diastolic 55–69; PULSE 64–95; RESP 16–20; TEMP 36.8; O2SAT 95–100
[2025-02-10 06:15] LABS: Hemoglobin 11.7 g/dL (13.5-17.5)
[2025-02-10 06:20] LABS: Hematocrit 35.8 % (41.0-53.0); Mean Corpuscular Hemoglobin 26.6 pg (28.0-32.0); Mean Corpuscular Volume 81.2 fL (80.0-100.0); Nucleated Red Blood Cells % 0.0 %
[2025-02-10 06:36] LABS: Alanine Aminotransferase 19 U/L (7-40); Albumin 3.6 g/dL (3.2-4.8); Alkaline Phosphatase 108 U/L (46-116); Anion Gap 10 (5-15); BUN/Creatinine Ratio 10.5 (10.0-20.0); Blood Urea Nitrogen 10 mg/dL (9-23); Calcium 9.2 mg/dL (8.7-10.4); Carbon Dioxide 27 mmol/L (20-31); Chloride 107 mmol/L (98-107); Potassium 3.8 mmol/L (3.5-5.1); Sodium 144 mmol/L (136-145); Total Protein 5.9 g/dL (5.7-8.2)
[2025-02-10 06:40] LABS: Bilirubin, Total 0.2 mg/dL (0.2-1.0); Glucose 117 mg/dL (74-106)
[2025-02-10] MEDS: AZITHROMYCIN 250 MG TAB PO SCH (09:19)
[2025-02-10] MEDS ORDERED: AZITHROMYCIN 250 MG TAB PO SCH (10:00)
--- NOTE | 2025-02-10 15:57 | DVHDSRES ---
Discharge Summary Date of Admission Resident Creating Document: KEITH ARREOLA Feb 08, 2025 at 23:55 Date of Discharge: Feb 10, 2025 Admitting Diagnosis Acute on Chronic hypoxic respiratory failure due to COPD exacerbation Labs/Diagnostic Data: Laboratory Results Test 02/10/25 05:19 02/08/25 22:27 02/08/25 22:06 02/08/25 21:25 White Blood Count 15.2 10^3/uL (4.4-10.8) Red Blood Count 4.41 10^6/uL (4.5-5.90) Hemoglobin 11.7 g/dL (13.5-17.5) Hematocrit 35.8 % (41.0-53.0) Mean Corpuscular Volume 81.2 fL (80.0-100.0) Mean Corpuscular Hemoglobin 26.6 pg (28.0-32.0) Mean Corpuscular Hemoglobin Concent 32.8 g/dL (32.0-36.0) Red Cell Distribution Width 17.1 % (11.8-14.3) Platelet Count 369 10^3/uL (140-450) Mean Platelet Volume 7.8 fL (6.9-10.8) Neutrophils (%) (Auto) 83.4 % (37.0-80.0) Lymphocytes (%) (Auto) 6.2 % (10.0-50.0) Monocytes (%) (Auto) 10.3 % (0.0-12.0) Eosinophils (%) (Auto) 0.0 % (0.0-7.0) Basophils (%) (Auto) 0.1 % (0.0-2.0) Neutrophils # (Auto) 12.7 10 ^3/uL (1.6-8.6) Lymphocytes # (Auto) 0.9 10 ^3/uL (0.4-5.4) Monocytes # (Auto) 1.6 10 ^3/uL (0-1.3) Eosinophils # (Auto) 0 10 ^3/uL (0-0.8) Basophils # (Auto) 0 10 ^3/uL (0-0.2) Nucleated Red Blood Cells 0.0 % Sodium Level 144 mmol/L (136-145) Potassium Level 3.8 mmol/L (3.5-5.1) Chloride Level 107 mmol/L (98-107) Carbon Dioxide Level 27 mmol/L (20-31) Anion Gap 10 (5-15) Blood Urea Nitrogen 10 mg/dL (9-23) Creatinine 0.95 mg/dL (0.700-1.30) Glomerular Filtration Rate Calc 87 mL/min (>90) BUN/Creatinine Ratio 10.5 (10.0-20.0) Serum Glucose 117 mg/dL (74-106) Calcium Level 9.2 mg/dL (8.7-10.4) Total Bilirubin 0.2 mg/dL (0.2-1.0) Aspartate Amino Transferase (AST) 15 U/L (13-40) Alanine Aminotransferase (ALT) 19 U/L (7-40) Alkaline Phosphatase 108 U/L (46-116) Total Protein 5.9 g/dL (5.7-8.2) Albumin 3.6 g/dL (3.2-4.8) Lactic Acid Level 2.0 mmol/L (0.4-2.0) Blood Gas Specimen Type Arterial Blood Gas Sample Site Right brachial Blood Gas Patient Temperature 37.0 Arterial Blood Date Drawn [id number] Arterial Blood pH 7.436 (7.350-7.450) Arterial Blood Partial Pressure CO2 37.4 mmHg (35.0-48.0) Arterial Blood Partial Pressure O2 76.3 mmHg (83.0-108.0) Arterial Blood HCO3 24.6 mmol/L (21.0-28.0) Arterial Blood Oxygen Saturation 95.1 % (94.0-98.0) Arterial Blood Base Excess 0.6 mmol/L (-2.0-3.0) Arterial Blood Oxyhemoglobin 93.3 % (94.0-98.0) Arterial Blood Carboxyhemoglobin 1.0 % (0.5-1.5) Arterial Blood Methemoglobin 0.9 % (0.0-1.5) Arterial Blood Deoxyhemoglobin 4.8 % (0.0-5.0) Chema Test Yes Blood Gas Total Hemoglobin 13.90 g/dL (13.5-17.5) Blood Gas Modality Room air FiO2 % 21.0 Troponin I High Sensitivity 6 ng/L (</=54) Test 02/08/25 21:12 02/08/25 20:30 Influenza Type A Antigen Negative (Negative) Influenza Type B Antigen Negative (Negative) SARS-CoV-2 Antigen (Rapid) Negative (NEGATIVE) D-Dimer, Quantitative 0.25 mg/L FEU (0.0-0.49) B-Type Natriuretic Peptide 20.31 pg/mL (0-100) Other Laboratory Tests 02/10/25 05:19 Brief Hx & Hospital Course: [facility] Gentile, is a 69-year-old male with past medical history of COPD on 2 L home oxygen, PE, lung cancer status post right lung lower lobectomy, stroke residual left-sided weakness at baseline, MS no stents was treated for COPD exacerbation with acute on chronic hypoxic respiratory failure, improved with in hospital treatment and hemodynamically stable and discharged to home. Patient is advised to follow up outpatient with PCP, pulmonology as needed. Conditions treated in the hospital: Acute on chronic hypoxic respiratory failure, on 2L home oxygen COPD exacerbation Essential HTN, controlled. Hypertensive heart disease Hypernatremia, hypovolumic, resolved Lactic acidosis, likely type II d/t high albuterol History of pulmonary embolism on eliquis. Clinically ruled out PE History of lung cancer s/p resection. Known CAD, History of MS History of stroke with residual weakness at baseline. At discharge: Continue home oxygen, use the meds and inhalers at home. PCP follow up in 1-2 weeks. Pulm follow up if needed. Case discussed with Dr. Catalan, discharge planning required 19 minutes Operations or Procedures PATIENT: [facility] GENTILE RACCT: [id number] UNIT: [id number] : 1955 LOC: ER ROOM / BED: / AGE / SEX: 69 / M ADM STATUS: REG ER SERVICE 16 ORDERING PHYSICIAN: CANDIDO WADE MD PROCEDURE(s): CXR1 - CHEST XRAY 1 VIEW REASON: Shortness of breath ORDER NUMBER(s): [id number], ACCESSION NUMBER(s): [id number] EXAM: XY CHEST XRAY 1 VIEW CLINICAL HISTORY: Shortness of breath TECHNIQUE: Single AP view of the chest WID: COMPARISON: XY CHEST XRAY 1 VIEW on DOS: 01/09/25 FINDINGS: Lines and tubes: None Chest: The heart size and pulmonary vasculature is within normal limits. Calcified plaque projects Over the aortic arch. Unchanged blunting of the right costophrenic angle. Linear bibasilar scarring or atelectasis. No pneumothorax. The osseous structures are grossly intact. Multilevel thoracic spondylosis. IMPRESSION: 1. Unchanged blunting of the right costophrenic angle likely scarring. 2. Linear bibasilar scarring and/or atelectasis. Condition at Discharge: Stable Final Diagnosis/Problems List Acute on chronic hypoxic respiratory failure, on 2L home oxygen COPD exacerbation Essential HTN, controlled. Hypertensive heart disease Hypernatremia, hypovolumic, resolved Lactic acidosis, likely type II d/t high albuterol History of pulmonary embolism on eliquis. Clinically ruled out PE History of lung cancer s/p resection. Known CAD, History of MS History of stroke with residual weakness at baseline. Discharge Disposition: Home Discharge Instruct/Medications Scheduled Albuterol Sulfate (Albuterol Sulfate Hfa), 2 PUFF INH Q6HR Amlodipine Besylate (Amlodipine Besylate), 1 TAB PO DAILY Apixaban Base (Eliquis), 5 MG PO BID Aspirin (Aspirin Low Dose), 1 TAB PO DAILY, (Reported) Azithromycin (Azithromycin), 500 MG PO DAILY Azithromycin (Azithromycin), 500 MG PO DAILY Budesonide-Formoterol Fumarate (Breyna 80-4.5 Mcg/Act), 1 AER IN DAILY Doxycycline (Monohydrate) (Doxycycline), 100 MG PO BID Doxycycline Monohydrate (Doxycycline Monohydrate), 100 MG PO Q12HR Hctz (Hydrochlorothiazide), 1 TAB PO QAM, (Reported) Memantine Hydrochloride (Memantine HCl), 1 TAB PO BID, (Reported) Prednisone (Prednisone), 20 MG PO DAILY Prednisone (Prednisone), 40 MG PO DAILY Umeclidinium [place] (Incruse Ellipta), 62.5 MCG IN DAILY Scheduled PRN Albuterol Sulfate (Ventolin Mdi), 90 MCG IN QID PRN Albuterol Sulfate (Ventolin Mdi), 90 MCG IN QID PRN Ipratropium-Albuterol (Ipratropium [place]/Albut), 2 PUFF INH PRN PRN for SHORTNESS OF BREATH Discharge Statement: "Patient was advised to return to the ER or call 911 if any headaches, dizziness, shortness of breath, chest pain, abdominal pain, bleeding, fevers, or worsening of medical condition. Patient was counseled about treatment plan, medications, possible side effects, patientverbalized understanding. All questions were answered to the best of my ability. This discharge took greater then 30 minutes in planning, reviewing documentation, counseling the patient, and discussing with other team members." ASSESSMENT ASSESSMENT Assessment Visit Coding STANDARD RES Billing Provider: JHON CATALAN MD Date of Service if different f: Feb 10, 2025 Common Visit Codes: 67159-QMI/OBS DISCH DAY >30min MAXWELL,KEITH RESIDENT Feb 10, 2025 15:57
== END 2025-02-10 18:35 | disposition home or self-care (01) | DRG 189 ==
LOC: ER 19:22 → EDBD 19:22 → OVERFLOW 23:55 → CENTRAL 23:57
PROVIDERS: ADMIT Internal Medicine Geriatric Medicine; ATTEND Internal Medicine Geriatric Medicine
DX: J96.21 Acute and chronic respiratory failure with hypoxia (principal); E87.0 Hyperosmolality and hypernatremia; E87.20 Acidosis, unspecified; J44.1 Chronic obstructive pulmonary disease with (acute) exacerbation; I69.354 Hemiplegia and hemiparesis following cerebral infarction affecting left non-dominant side; I11.9 Hypertensive heart disease without heart failure; Z20.822 Contact with and (suspected) exposure to COVID-19; Z87.891 Personal history of nicotine dependence; I25.2 Old myocardial infarction; Z80.9 Family history of malignant neoplasm, unspecified; Z86.711 Personal history of pulmonary embolism; Z85.118 Personal history of other malignant neoplasm of bronchus and lung
CPT/HCPCS: 36415; 36600; 71045; 80053; 82805; 83605; 83880; 84484; 85025; 85379; 87426; 87804; 94640; 96374; G0378